=== PATIENT | female | born 1965 | race African-American/Black ===

== ENCOUNTER 2016-06-19 17:17 | Emergency (ER) | payer OTHER ==
[~2016-06-19] VITALS: Ht 170.2 cm; Wt 75.9 kg
[2016-06-19 17:20] VITALS: BP 146/91; PULSE 76; RESP 14; TEMP 98.4; O2SAT 100
[2016-06-19 20:13] VITALS: BP 152/85; PULSE 78; RESP 18; O2SAT 100
[2016-06-19] MEDS ORDERED: SODIUM CHLORIDE 0.9% FLUSH 5 ML FLUSH IVF PRN (20:15)
[2016-06-19 20:18] VITALS: RESP 18; O2SAT 99
--- NOTE | 2016-06-19 20:25 | PD ---
HPI Chief Complaint: Pain: Acute or Chronic Time Seen by Provider: 20:09 Travel History International Travel<30 days: No Contact w/Intl Traveler<30days: No Traveled to known affect area: No History of Present Illness HPI 50-year-old female with history of uterine cancer in remission, right lower extremity DVT and PE in 2014, here for evaluation of right ankle/leg pain and swelling and concern for possible DVT. The patient reports that 2 days ago she drove down here from [place]. Symptoms started today with pain and swelling. She denies trauma. No fevers or chills. She had some chest tightness earlier today and while in triage, currently is chest pain-free. No known history of cardiac disease. When the patient was diagnosed with her PE/DVT in 2014 she was on Eliquis for 6 months. [facility] Past Medical History Diabetes: No Hypertension: Yes Tetanus Vaccination: > 5 Years Influenza Vaccination: No ?: Not Tubal Ligation: Yes Past Surgical History Abdominal Surgery: Yes (HERNIA REPAIR) Hysterectomy: Yes Tonsillectomy: Yes Social History Alcohol Use: No Tobacco Use: No Substance Use: No Allergies-Medications (Allergen,Severity, Reaction): Coded Allergies: Flagyl (Verified Allergy, Unknown, 06/19/16) Levaquin (Verified Allergy, Unknown, 06/19/16) Penicillin (Verified Allergy, Unknown, 06/19/16) Review of Systems Except as stated in HPI: all other systems reviewed are Neg Physical Exam Narrative GENERAL: Pleasant, well-developed, well-nourished, comfortable, no acute distress. SKIN: Warm and dry. No rash. No erythema or signs of cellulitis. HEAD: Atraumatic. Normocephalic. EYES: Pupils equal and round. No scleral icterus. No injection or drainage. ENT: Mucous membranes pink and moist. NECK: Trachea midline. No JVD. CARDIOVASCULAR: Regular rate and rhythm. Bilateral dorsalis pedis pulses are brisk and equal. RESPIRATORY: No accessory muscle use. Clear to auscultation. Breath sounds equal bilaterally. MUSCULOSKELETAL: Moderate right ankle swelling with mild diffuse tenderness without obvious bony deformity, with normal range of motion. There is also some tenderness over the proximal/posterior right calf/posterior right knee. All compartments in the right lower extremity are supple. No signs of cellulitis. No crepitus. NEUROLOGICAL: Awake and alert. No obvious cranial nerve deficits. Motor grossly within normal limits. Normal speech. PSYCHIATRIC: Appropriate mood and affect; insight and judgment normal. Data Data Last Documented VS Vital Signs Date Time Temp Pulse Resp B/P Pulse Ox O2 Delivery O2 Flow Rate FiO2 06/19/16 21:31 65 20 143/86 100 Room Air 06/19/16 17:20 98.4 Orders Electrocardiogram (06/19/16 20:13) Basic Metabolic Panel (Bmp) (06/19/16 20:13) Ckmb (Isoenzyme) Profile (06/19/16 20:13) Complete Blood Count With Diff (06/19/16 20:13) Prothrombin Time / Inr (Pt) (06/19/16 20:13) Act Partial Throm Time (Ptt) (06/19/16 20:13) Troponin I (06/19/16 20:13) Chest, Single Ap (06/19/16 20:13) Ecg Monitoring (06/19/16 20:13) Iv Access Insert/Monitor (06/19/16 20:13) Oximetry (06/19/16 20:13) Sodium Chloride 0.9% Flush (Ns Flush) (06/19/16 20:15) Us Leg Venous Doppler (06/19/16 ) Ankle, Complete ([id number]) (06/19/16 ) CKMB (06/19/16 20:20) CKMB% (06/19/16 20:20) Labs Laboratory Tests Test 06/19/16 20:20 White Blood Count 4.8 TH/MM3 Red Blood Count 2.99 MIL/MM3 Hemoglobin 9.6 GM/DL Hematocrit 28.3 % Mean Corpuscular Volume 94.7 FL Mean Corpuscular Hemoglobin 32.0 PG Mean Corpuscular Hemoglobin 33.8 % Concent Red Cell Distribution Width 13.9 % Platelet Count 178 TH/MM3 Mean Platelet Volume 8.8 FL Neutrophils (%) (Auto) 38.7 % Lymphocytes (%) (Auto) 51.0 % Monocytes (%) (Auto) 7.7 % Eosinophils (%) (Auto) 1.3 % Basophils (%) (Auto) 1.3 % Neutrophils # (Auto) 1.9 TH/MM3 Lymphocytes # (Auto) 2.4 TH/MM3 Monocytes # (Auto) 0.4 TH/MM3 Eosinophils # (Auto) 0.1 TH/MM3 Basophils # (Auto) 0.1 TH/MM3 CBC Comment DIFF FINAL Differential Comment Prothrombin Time 10.5 SEC Prothromb Time International 1.0 RATIO Ratio Activated Partial 24.2 SEC Thromboplast Time Sodium Level 142 MEQ/L Potassium Level 4.6 MEQ/L Chloride Level 109 MEQ/L Carbon Dioxide Level 26.9 MEQ/L Anion Gap 6 MEQ/L Blood Urea Nitrogen 43 MG/DL Creatinine 2.28 MG/DL Estimat Glomerular Filtration 27 ML/MIN Rate Random Glucose 97 MG/DL Calcium Level 8.7 MG/DL Total Creatine Kinase 181 U/L Creatine Kinase MB 1.7 NG/ML Troponin I LESS THAN 0.02 NG/ML MDM Medical Decision Making Medical Screen Exam Complete: Yes Emergency Medical Condition: Yes Interpretation(s) EKG: Sinus, rate 60, normal axis, normal intervals, no acute ischemic abnormality. Differential Diagnosis DVT, venous insufficiency, Bacon cyst, musculoskeletal strain Narrative Course Vital signs show heart rate 76, blood pressure 146/91, pulse ox 100% on room air , oral temp of 98.4F. CBC shows WBC 4.8, hemoglobin 9.6, hematocrit 28.3, platelets 178. BMP is remarkable for BUN 43, creatinine 2.28, GFR 27 Cardiac enzymes Chest x-ray shows no acute disease. Right ankle x-ray shows no acute abnormality. Right lower extremity duplex is negative for DVT. There are no baseline labs in our system as the patient has never been here before. She tells me that she knows about her renal insufficiency and that her baseline creatinine is around 2. Patient and the patient's significant other were made aware of all findings. She tells me that she started taking amlodipine about 2 weeks ago. This could possibly be causing her peripheral edema in her right leg. There are no signs of cellulitis or infection. At this point she is stable for discharge home with outpatient follow-up with her primary care physician when she returns to [place]. I told her that if her symptoms are persistent for the next week, that she should have a repeat ultrasound in 1 week. She was informed on when to return to the emergency Department sooner. She verbalizes understanding and agreement with plan. Diagnosis Primary Impression: Right leg swelling Referrals: Primary Care Physician 3 days Additional Instructions: Follow-up with a primary care physician this week. Return to the emergency department for worsening symptoms or any other concerns. Scripts Hydrocodone-Acetaminophen (Lortab)5-325 Mg Tab1 Tab PO Q6H PRN (PAIN) #10 TAB Ref 0 Prov:Javed Chowdary MD 06/19/16 Disposition: 01 DISCHARGE HOME Condition: Stable Javed Chowdary MD Jun 19, 2016 20:25
--- NOTE | 2016-06-19 20:56 | RADRPT ---
EXAM DATE/TIME: 06/19/2016 20:24 [facility] COMPARISON: No previous studies available for comparison. INDICATIONS : Swelling. MEDICAL HISTORY : History of DVT in right leg 2015. Hypertension. SURGICAL HISTORY : Tonsillectomy. hernia repair. Left rotator cuff repair. ENCOUNTER: Initial ACUITY: 1 day PAIN SCORE: 0/10 LOCATION: Right leg. TECHNIQUE: Venous ultrasound of the leg was performed from the inguinal ligament to the proximal calf. Real-lars e, color Doppler and spectral tracing, compression and augmentation techniques were used. FINDINGS: There is normal compressibility of the deep venous system from the inguinal region to the proximal ca lf. No echogenic clot is seen in the lumen of the common femoral, femoral, popliteal, and posterior tibial veins. There is a normal response of the venous system to proximal and distal augmentation an d respiration. CONCLUSION: No DVT. David Chin MD on June 19, 2016 at 20:54 Board Certified Radiologist. This report was verified electronically.
[2016-06-19 21:13] LABS: AUTOMATED NEUTROPHIL # 1.9 TH/MM3 (1.8-7.7); BASOPHIL # 0.1 TH/MM3 (0-0.2); BASOPHIL % 1.3 % (0.0-2.0); EOSINOPHIL # 0.1 TH/MM3 (0-0.4); EOSINOPHIL % 1.3 % (0.0-4.0); HEMATOCRIT 28.3 % (35.0-46.0); HEMO FLAGS DIFF FINAL; LYMPHOCYTE # 2.4 TH/MM3 (1.0-4.8); MEAN CELL VOLUME 94.7 FL (80.0-100.0); MEAN CORPUSCULAR HGB CONC 33.8 % (32.0-36.0); MONO % 7.7 % (0.0-8.0); NEUT % 38.7 % (16.0-70.0); PLATELET COUNT 178 TH/MM3 (150-450); RED BLOOD COUNT 2.99 MIL/MM3 (4.00-5.30); RED CELL DISTRIBUTION WIDTH 13.9 % (11.6-17.2); WHITE BLOOD COUNT 4.8 TH/MM3 (4.0-11.0)
[2016-06-19 21:24] LABS: APTT (PATIENT) 24.2 SEC (24.3-30.1); PROTHROMBIN TIME - PATIENT 10.5 SEC (9.8-11.6)
[2016-06-19 21:31] VITALS: BP 143/86; PULSE 65; RESP 20; O2SAT 100
--- NOTE | 2016-06-19 21:38 | RADRPT ---
EXAM DATE/TIME: 06/19/2016 21:15 [facility] COMPARISON: No previous studies available for comparison. INDICATIONS : Chest pain MEDICAL HISTORY : History of DVT in right leg 2015. Hypertension. SURGICAL HISTORY : Tonsillectomy. hernia repair. Left rotator cuff repair. Infusaport ENCOUNTER: Initial ACUITY: 1 day PAIN SCORE: 0/10 LOCATION: Bilateral chest FINDINGS: A single view of the chest demonstrates the lungs to be symmetrically aerated without evidence of mas s, infiltrate or effusion. There is a CT compatible [id number] in place from the left subclavian approach with the tip overlying the SVC. The cardiomediastinal contours are unremarkable. Osseous st ructures are intact. CONCLUSION: No acute disease. David Chin MD on June 19, 2016 at 21:36 Board Certified Radiologist. This report was verified electronically.
--- NOTE | 2016-06-19 21:43 | RADRPT ---
EXAM DATE/TIME: 06/19/2016 21:17 [facility] COMPARISON: No previous studies available for comparison. INDICATIONS : Right ankle swelling MEDICAL HISTORY : History of DVT in right leg 2015. Hypertension. SURGICAL HISTORY : Tonsillectomy. ENCOUNTER: Initial ACUITY: 1 day PAIN SCORE: 0/10 LOCATION: Right Ankle FINDINGS: Three view exam was performed of the right ankle. The bony structures are in normal alignment. No e vidence of fracture, dislocation, or soft tissue swelling. The ankle mortise is intact. No radiopaq ue foreign bodies are seen. The bones appear osteopenic. CONCLUSION: No acute disease. David Chin MD on June 19, 2016 at 21:41 Board Certified Radiologist. This report was verified electronically.
[2016-06-19 21:53] LABS: ANION GAP 6 MEQ/L (5-15); BICARBONATE 26.9 MEQ/L (21.0-32.0); BLOOD UREA NITROGEN 43 MG/DL (7-18); CHLORIDE 109 MEQ/L (98-107); CREATINE KINASE 181 U/L (26-192); GLOMERULAR FILTRATION RATE 27 ML/MIN (>89); POTASSIUM 4.6 MEQ/L (3.5-5.1); SODIUM (NA) 142 MEQ/L (136-145)
[2016-06-19 22:05] LABS: CKMB 1.7 NG/ML (0.5-3.6)
[2016-06-19] MEDS ORDERED: HYDR-3533 PO (22:19)
--- NOTE | 2016-06-20 09:16 | EKG ---
Date Performed: 06/19/2016 Time Performed: 20:25:26 PTAGE: 50 years EKG: Sinus rhythm NORMAL ECG NO PREVIOUS TRACING DOCTOR: Ozzie Borrego Interpretating Date/Time 06/20/2016 09:14:37
== END 2016-06-19 23:00 | disposition home or self-care (01) ==
LOC: NEPA 17:17
DX: M79.89 Other specified soft tissue disorders (principal); R07.9 Chest pain, unspecified; I10 Essential (primary) hypertension
CPT/HCPCS: 71010; 73610; 80048; 82550; 82552; 84484; 85025; 85610; 85730; 93005; 93971

== ENCOUNTER 2017-03-15 11:00 | Inpatient (IN) | payer OTHER ==
[2017-03-15] VITALS (10 sets, daily range): BP systolic 116–155; BP diastolic 69–91; PULSE 75–98; RESP 16–22; TEMP 97.4–98.5; O2SAT 97–100
[~2017-03-15] VITALS: Ht 170.2 cm; Wt 65.1 kg
[~2017-03-15 11:00] MED LIST: HYDR-3533 PO
[2017-03-15] MEDS ORDERED: COUM5TAB PO (11:23)
[2017-03-15] MEDS ORDERED: COUM7.5T PO (11:24)
--- NOTE | 2017-03-15 11:40 | PD ---
HPI Chief Complaint: Back/ Neck Pain or Injury Time Seen by Provider: 11:29 Travel History International Travel<30 days: No Contact w/Intl Traveler<30days: No Traveled to known affect area: No History of Present Illness HPI 51 YO F with PMH of HTN, DVT, neuropathy, left percutaneous nephrostomy tube, uterine cancer status post hysterectomy on Coumadin presents to the ED for evaluation of 3 week history of lower left back pain, worsening over the last few days. Patient endorses dysuria and urinary urgency 2 days. Endorses chills, has not measured a fever at home. She denies cough, shortness of breath , nausea, vomiting, abdominal pain, saddle anesthesia, weakness of the extremities. 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 She states that she recently moved from [place] and does not currently have a doctor. PFSH Past Medical History Diabetes: No Hypertension: Yes ?: Not Tubal Ligation: Yes Past Surgical History Abdominal Surgery: Yes (HERNIA REPAIR) Hysterectomy: Yes Tonsillectomy: Yes Social History Alcohol Use: No Tobacco Use: No Substance Use: No Allergies-Medications (Allergen,Severity, Reaction): Coded Allergies: levofloxacin (Unverified Allergy, Unknown, 03/15/17) metronidazole (Unverified Allergy, Unknown, 03/15/17) penicillin G (Unverified Allergy, Unknown, 03/15/17) Reported Meds & Prescriptions Reported Meds & Active Scripts Active Reported Coumadin (Warfarin) 7.5 Mg Tab 7.5 Mg PO EVERY OTHER DAY Coumadin (Warfarin) 5 Mg Tab 5 Mg PO EVERY OTHER DAY Review of Systems Except as stated in HPI: all other systems reviewed are Neg Physical Exam Narrative GENERAL: Well-nourished, well-developed nontoxic-appearing black female in no acute distress. SKIN: Focused skin assessment warm/dry. HEAD: Normocephalic. EYES: No scleral icterus. No injection or drainage. NECK: Supple, trachea midline. No JVD or lymphadenopathy. CARDIOVASCULAR: Regular rate and rhythm without murmurs, gallops, or rubs. RESPIRATORY: Breath sounds clear and equal bilaterally. No accessory muscle use. GASTROINTESTINAL: Abdomen soft, non-tender, nondistended. Active bowel sounds. MUSCULOSKELETAL: No cyanosis, or edema. BACK: Nontender without obvious deformity. No CVA tenderness. Point tenderness at the left-sided sciatic notch. There is a nephrostomy tube in place, entrance wound is well-healed and without signs of infection. Data Data Last Documented VS Vital Signs Date Time Temp Pulse Resp B/P (MAP) Pulse Ox O2 Delivery O2 Flow Rate FiO2 03/15/17 13:20 20 03/15/17 13:00 96 137/83 (101) 100 Room Air 03/15/17 11:03 98.5 Orders Orders Urinalysis - C+S If Indicated (03/15/17 11:29) Complete Blood Count With Diff (03/15/17 11:48) Comprehensive Metabolic Panel (03/15/17 11:48) Iv Access Insert/Monitor (03/15/17 11:48) Ecg Monitoring (03/15/17 11:48) Oximetry (03/15/17 11:48) Morphine Inj (Morphine Inj) (03/15/17 12:00) Ondansetron Inj (Zofran Inj) (03/15/17 12:00) Sodium Chlor 0.9% 1000 Ml Inj (Ns 1000 M (03/15/17 11:48) Sodium Chloride 0.9% Flush (Ns Flush) (03/15/17 12:00) Prothrombin Time / Inr (Pt) (03/15/17 11:53) Act Partial Throm Time (Ptt) (03/15/17 11:53) Urine Culture (03/15/17 11:45) Aztreonam Inj (Azactam Inj) (03/15/17 13:00) Admit Order (Ed Use Only) (03/15/17 13:52) Labs Laboratory Tests Test 03/15/17 11:45 03/15/17 11:58 Urine Color YELLOW Urine Turbidity CLOUDY Urine pH 5.0 Urine Specific [place] 1.012 Urine Protein TRACE mg/dL Urine Glucose (UA) NEG mg/dL Urine Ketones NEG mg/dL Urine Occult Blood NEG Urine Nitrite NEG Urine Bilirubin NEG Urine Urobilinogen LESS THAN 2.0 MG/DL Urine Leukocyte Esterase LARGE Urine WBC 16 /hpf Urine Bacteria RARE /hpf Microscopic Urinalysis Comment CULTURE INDICATED White Blood Count 7.5 TH/MM3 Red Blood Count 3.26 MIL/MM3 Hemoglobin 9.5 GM/DL Hematocrit 29.1 % Mean Corpuscular Volume 89.2 FL Mean Corpuscular Hemoglobin 29.2 PG Mean Corpuscular Hemoglobin Concent 32.7 % Red Cell Distribution Width 16.4 % Platelet Count 412 TH/MM3 Mean Platelet Volume 7.9 FL Neutrophils (%) (Auto) 72.8 % Lymphocytes (%) (Auto) 17.8 % Monocytes (%) (Auto) 7.6 % Eosinophils (%) (Auto) 0.8 % Basophils (%) (Auto) 1.0 % Neutrophils # (Auto) 5.5 TH/MM3 Lymphocytes # (Auto) 1.3 TH/MM3 Monocytes # (Auto) 0.6 TH/MM3 Eosinophils # (Auto) 0.1 TH/MM3 Basophils # (Auto) 0.1 TH/MM3 CBC Comment DIFF FINAL Differential Comment Prothrombin Time 19.8 SEC Prothromb Time International Ratio 1.7 RATIO Activated Partial Thromboplast Time 31.3 SEC Blood Urea Nitrogen 18 MG/DL Creatinine 1.48 MG/DL Random Glucose 86 MG/DL Total Protein 9.3 GM/DL Albumin 3.1 GM/DL Calcium Level 9.7 MG/DL Alkaline Phosphatase 77 U/L Aspartate Amino Transf (AST/SGOT) 53 U/L Alanine Aminotransferase (ALT/SGPT) 17 U/L Total Bilirubin 0.6 MG/DL Sodium Level 135 MEQ/L Potassium Level 4.6 MEQ/L Chloride Level 103 MEQ/L Carbon Dioxide Level 23.0 MEQ/L Anion Gap 9 MEQ/L Estimat Glomerular Filtration Rate 45 ML/MIN MDM Medical Decision Making Medical Screen Exam Complete: Yes Emergency Medical Condition: Yes Differential Diagnosis musculoskeletal pain versus infected nephrostomy tube versus pyelonephritis versus other Narrative Course 51 YO F with PMH of HTN, DVT, neuropathy, left nephrostomy tube, uterine cancer s/p hysterectomy, on Coumadin presents to the ED for evaluation of 3 week history of lower left back pain, worsening over the last few days. Endorses chills, dysuria and urinary urgency 2 days. She denies cough, shortness of breath, nausea, vomiting, abdominal pain, saddle anesthesia, weakness of the extremities. 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 She recently moved from [place] and does not currently have a PCP. Vitals reviewed. On exam the patient has positive left-sided CVA tenderness. The nephrostomy tube site is well-healed without signs of infection. There is cloudy urine in the collection bag. IV was established. Patient was administered 4 mg morphine, 4 mg Zofran, 1 L normal saline. CBC: WBC 7.5. Hemoglobin 9.5. CMP: BUN 18, creatinine 1.48. GFR 45. Coags: INR 1.7. UA: Cloudy, large leukocyte esterase, 16 WBCs, rare bacteria. Patient states that her baseline creatinine runs 1.1-1.3. Was administered 1 g of aztreonam IV. I discussed the results of the workup with the patient who is agreeable to admission for complicated pyelonephritis, subtheraputic INR. I spoke with who agrees to accept the patient to the medicine service. Please see medicine notes for disposition. Ladonna Mendoza Mar 15, 2017 11:40
[2017-03-15] MEDS ORDERED: SODIUM CHLOR 0.9% 1000 ML INJ 1,000 ML IV SCH (11:48)
[2017-03-15] MEDS ORDERED: SODIUM CHLORIDE 0.9% FLUSH 10 ML FLUSH IV FLUSH PRN ×2 (12:00→15:00)
[2017-03-15] MEDS ORDERED: ONDANSETRON HCL 4 MG/2 ML VIAL IVP ONE (12:00)
[2017-03-15] MEDS ORDERED: MORPHINE SULFATE 4 MG/ML INJ IV PUSH ONE (12:00)
[2017-03-15 12:22] LABS: AUTOMATED NEUTROPHIL # 5.5 TH/MM3 (1.8-7.7); BASOPHIL # 0.1 TH/MM3 (0-0.2); EOSINOPHIL # 0.1 TH/MM3 (0-0.4); EOSINOPHIL % 0.8 % (0.0-4.0); HEMATOCRIT 29.1 % (35.0-46.0); HEMO FLAGS DIFF FINAL; LYMPH % 17.8 % (9.0-44.0); LYMPHOCYTE # 1.3 TH/MM3 (1.0-4.8); MEAN CELL VOLUME 89.2 FL (80.0-100.0); MEAN CORPUSCULAR HEMOGLOBIN 29.2 PG (27.0-34.0); MEAN CORPUSCULAR HGB CONC 32.7 % (32.0-36.0); MONO % 7.6 % (0.0-8.0); NEUT % 72.8 % (16.0-70.0); PLATELET COUNT 412 TH/MM3 (150-450); RED BLOOD COUNT 3.26 MIL/MM3 (4.00-5.30); RED CELL DISTRIBUTION WIDTH 16.4 % (11.6-17.2); WHITE BLOOD COUNT 7.5 TH/MM3 (4.0-11.0)
[2017-03-15 12:31] LABS: BACTERIA, URINE RARE /hpf; BLOOD, URINE NEG (NEG); GLUCOSE,URINE NEG (NEG); KETONE, URINE NEG (NEG); NITRITE,URINE NEG (NEG); URINE COLOR YELLOW (YELLW/STRAW)
[2017-03-15 12:34] LABS: APTT (PATIENT) 31.3 SEC (24.3-30.1); INTERNATIONAL NORMALIZED RATIO 1.7 RATIO; PROTHROMBIN TIME - PATIENT 19.8 SEC (9.8-11.6)
[2017-03-15 12:35] LABS: COMMENT (UR) CULTURE INDICATED; CULTURE IF INDICATED CULTURE INDICATED
[2017-03-15 12:39] LABS: ALKALINE PHOSPHATASE 77 U/L (45-117); TOTAL BILIRUBIN ADULT 0.6 MG/DL (0.2-1.0)
[2017-03-15 12:43] LABS: ALT (GPT) 17 U/L (10-53); ANION GAP 9 MEQ/L (5-15); AST (GOT) 53 U/L (15-37); BLOOD UREA NITROGEN 18 MG/DL (7-18); CHLORIDE 103 MEQ/L (98-107); GLOMERULAR FILTRATION RATE 45 ML/MIN (>89); SODIUM (NA) 135 MEQ/L (136-145)
[2017-03-15 12:44] LABS: POTASSIUM 4.6 MEQ/L (3.5-5.1)
[2017-03-15] MEDS ORDERED: AZTREONAM INJ 1,000 MG in SODIUM CHLORIDE 0.9% INJ 100 ML IV ONE (13:00)
[2017-03-15] MEDS ORDERED: oxyCODONE/ACETAMINOPHEN 7.5 MG/325 MG TAB PO ONE (14:45)
[2017-03-15] MEDS ORDERED: ACETAMINOPHEN 325 MG TAB PO PRN ×2 (15:00)
[2017-03-15] MEDS ORDERED: traMADol HCL 50 MG TAB PO PRN ×2 (15:00)
[2017-03-15] MEDS ORDERED: NALOXONE HCL 0.4 MG/ML AMP IV PUSH PRN (15:00)
[2017-03-15] MEDS ORDERED: ONDANSETRON HCL 4 MG/2 ML VIAL IVP PRN (15:00)
--- NOTE | 2017-03-15 15:12 | HHI.HP ---
[facility] Primary Care Physician No Primary Care Physician Admission Diagnosis complicated pyelonephritis, subtherapeutic INR Diagnoses: Chief Complaint: Back pain Travel History International Travel<30 Days: No Contact w/Intl Traveler <30 Da: No Traveled to Known Affected Are: No History of Present Illness The patient is a 51-year-old female with a past medical history of cervical cancer and left-sided nephrostomy tube placement was presenting to the hospital with ongoing subacute low back pain. The patient says that about 3 weeks ago she started to develop pain in a bandlike distribution above her buttocks. She said the pain didn't start off that severely but gradually got worse as time went by. She started by taking Tylenol to help with the pain and then eventually tried taking tramadol. She said the pain is worse when she is sitting or lying down. She says the pain generally gets better when she stands up. She has not noticed any fevers or night sweats. She has been eating well. She says that over the past couple of days she has noticed some discomfort when urinating. This morning she felt a tingling upon urination. She denied seeing any blood in her urine. She does endorse chronic constipation. She says she has nephrostomy tube has been in place since September and she gets it changed every 3 months. She said she is next due to get it changed in May. Review of Systems Except as stated in HPI: all other systems reviewed are Neg Past Family Social History Past Medical History Cervical cancer s/p hysterectomy, chemotherapy and radiation DVT CKD Left sided nephrostomy tube placement Tonsillectomy Allergies: Coded Allergies: levofloxacin (Unverified Allergy, Unknown, 03/15/17) metronidazole (Unverified Allergy, Unknown, 03/15/17) penicillin G (Unverified Allergy, Unknown, 03/15/17) Active Ordered Medications Current Medications Medications (Trade) Dose Ordered Sig/Erendira Route Start Time Stop Time Status Last Admin (NS Flush) 2 ml UNSCH PRN IV FLUSH 03/15/17 12:00 03/15/17 13:43 (Coumadin) 6 mg DAILY@16 PO 03/15/17 16:00 UNV Pharmacy Profile Note 0 ml @ 0 mls/hr UNSCH OTHER 03/15/17 15:00 UNV Sodium Chloride 1,000 ml @ 100 mls/hr Q10H IV 03/15/17 14:55 03/16/17 10:54 UNV (NS Flush) 2 ml UNSCH PRN IV FLUSH 03/15/17 15:00 UNV (NS Flush) 2 ml BID IV FLUSH 03/15/17 21:00 UNV (Tylenol) 650 mg Q4H PRN PO 03/15/17 15:00 UNV (Zofran Inj) 4 mg Q6H PRN IVP 03/15/17 15:00 UNV (Tylenol) 650 mg Q6H PRN PO 03/15/17 15:00 UNV (Ultram) 50 mg Q4H PRN PO 03/15/17 15:00 UNV (Ultram) 100 mg Q4H PRN PO 03/15/17 15:00 UNV (Narcan Inj) 0.4 mg UNSCH PRN IV PUSH 03/15/17 15:00 UNV (Julieta-Colace) 1 tab BID PO 03/15/17 21:00 UNV (Miralax) 17 gm DAILY PO 03/15/17 15:00 UNV Family History HTN Social History The pt does not smoke, drink or use illicit substances Physical Exam Vital Signs Vital Signs Date Time Temp Pulse Resp B/P (MAP) Pulse Ox O2 Delivery O2 Flow Rate FiO2 03/15/17 13:20 20 03/15/17 13:00 96 20 137/83 (101) 100 Room Air 03/15/17 11:56 99 Room Air 03/15/17 11:38 93 22 135/91 (106) 99 Room Air 03/15/17 11:03 98.5 98 16 142/77 (98) 98 Physical Exam GENERAL: This is a well-nourished, well-developed patient, in no apparent distress. SKIN: No rashes, ecchymoses or lesions. Cool and dry. HEAD: Atraumatic. Normocephalic. No temporal or scalp tenderness. EYES: Pupils equal round and reactive. Extraocular motions intact. No scleral icterus. No injection or drainage. ENT: Nose without bleeding, purulent drainage or septal hematoma. Throat without erythema, tonsillar hypertrophy or exudate. Uvula midline. Airway patent. NECK: Trachea midline. No JVD or lymphadenopathy. Supple, nontender, no meningeal signs. CARDIOVASCULAR: Tachycardic without murmurs, gallops, or rubs. RESPIRATORY: Clear to auscultation. Breath sounds equal bilaterally. No wheezes , rales, or rhonchi. GASTROINTESTINAL: Abdomen soft, non-tender, nondistended. No hepato-splenomegaly , or palpable masses. No guarding. BACK: Tender to palpation of lower lumbar spine. MUSCULOSKELETAL: Extremities without clubbing, cyanosis, or edema. No joint tenderness, effusion, or edema noted. NEUROLOGICAL: Awake and alert. Cranial nerves II through XII intact. Motor and sensory grossly within normal limits. Five out of 5 muscle strength in all muscle groups. Normal speech. PSYCH: Mood and affect appropriate. Laboratory Laboratory Tests Test 03/15/17 11:45 03/15/17 11:58 Urine Color YELLOW Urine Turbidity CLOUDY Urine pH 5.0 Urine Specific [place] 1.012 Urine Protein TRACE Urine Glucose (UA) NEG Urine Ketones NEG Urine Occult Blood NEG Urine Nitrite NEG Urine Bilirubin NEG Urine Urobilinogen LESS THAN 2.0 Urine Leukocyte Esterase LARGE Urine WBC 16 Urine Bacteria RARE Microscopic Urinalysis Comment CULTURE INDICATED White Blood Count 7.5 Red Blood Count 3.26 Hemoglobin 9.5 Hematocrit 29.1 Mean Corpuscular Volume 89.2 Mean Corpuscular Hemoglobin 29.2 Mean Corpuscular Hemoglobin Concent 32.7 Red Cell Distribution Width 16.4 Platelet Count 412 Mean Platelet Volume 7.9 Neutrophils (%) (Auto) 72.8 Lymphocytes (%) (Auto) 17.8 Monocytes (%) (Auto) 7.6 Eosinophils (%) (Auto) 0.8 Basophils (%) (Auto) 1.0 Neutrophils # (Auto) 5.5 Lymphocytes # (Auto) 1.3 Monocytes # (Auto) 0.6 Eosinophils # (Auto) 0.1 Basophils # (Auto) 0.1 CBC Comment DIFF FINAL Differential Comment Prothrombin Time 19.8 Prothromb Time International Ratio 1.7 Activated Partial Thromboplast Time 31.3 Blood Urea Nitrogen 18 Creatinine 1.48 Random Glucose 86 Total Protein 9.3 Albumin 3.1 Calcium Level 9.7 Alkaline Phosphatase 77 Aspartate Amino Transf (AST/SGOT) 53 Alanine Aminotransferase (ALT/SGPT) 17 Total Bilirubin 0.6 Sodium Level 135 Potassium Level 4.6 Chloride Level 103 Carbon Dioxide Level 23.0 Anion Gap 9 Estimat Glomerular Filtration Rate 45 Date/Time Source Procedure Growth Status 03/15/17 11:45 Urine Clean Catch Urine Culture Pending Received Result Diagram: 03/15/17 1158 03/15/17 1158 Caprini VTE Risk Assessment Caprini VTE Risk Assessment: Mod/High Risk (score >= 2) Caprini Risk Assessment Model Point Value = 1 Point Value = 2 Point Value = 3 Point Value = 5 Age 41-60 Minor surgery BMI > 25 kg/m2 Swollen legs Varicose veins or History of unexplained or recurrent spontaneous Oral contraceptives or hormone replacement Sepsis (< 1 month) Serious lung disease, including pneumonia (< 1 month) Abnormal pulmonary function Acute myocardial infarction Congestive heart failure (< 1 month) History of inflammatory bowel disease Medical patient at bed rest Age 61-74 Arthroscopic surgery Major open surgery (> 45 min) Laparoscopic surgery (> 45 min) Malignancy Confined to bed (> 72 hours) Immobilizing plaster cast Central venous access Age >= 75 History of VTE Family history of VTE Factor V Leiden Prothrombin [id number] Lupus anticoagulant Anticardiolipin antibodies Elevated serum homocysteine Heparin-induced thrombocytopenia Other congenital or acquired thrombophilia Stroke (< 1 month) Elective arthroplasty Hip, pelvis, or leg fracture Acute spinal cord injury (< 1 month) Prophylaxis Regimen Total Risk Factor Score Risk Level Prophylaxis Regimen 0-1 Low Early ambulation 2 Moderate Order ONE of the following: *Sequential Compression Device (SCD) *Heparin 5000 units SQ BID 3-4 Higher Order ONE of the following medications: *Heparin 5000 units SQ TID *Enoxaparin/Lovenox 40 mg SQ daily (WT < 150 kg, CrCl > 30 mL/min) *Enoxaparin/Lovenox 30 mg SQ daily (WT < 150 kg, CrCl > 10-29 mL/min) *Enoxaparin/Lovenox 30 mg SQ BID (WT < 150 kg, CrCl > 30 mL/min) AND/OR *Sequential Compression Device (SCD) 5 or more Highest Order ONE of the following medications: *Heparin 5000 units SQ TID (Preferred with Epidurals) *Enoxaparin/Lovenox 40 mg SQ daily (WT < 150 kg, CrCl > 30 mL/min) *Enoxaparin/Lovenox 30 mg SQ daily (WT < 150 kg, CrCl > 10-29 mL/min) *Enoxaparin/Lovenox 30 mg SQ BID (WT < 150 kg, CrCl > 30 mL/min) AND *Sequential Compression Device (SCD) Assessment and Plan Assessment and Plan Low back pain Ongoing for the past 3 weeks. Exam is positive for mild tenderness to palpation. - Pain control. - Check a lumbar x-ray. If unrevealing would pursue an MRI of the lumbar spine. - Check ESR and CRP levels. UTI/ Pyelonephritis The patient endorses dysuria. UA indicative of infection. She does have a left nephrostomy tube in place and was started on aztreonam in the emergency department for concern of pyelonephritis. - Continue IV aztreonam for now. - Follow urine culture. - IV fluids. CKD The patient says that her creatinine was much higher before they placed the nephrostomy tube. - Avoid nephrotoxic agents. - IV fluids. Anemia Appears chronic. May be secondary to history of cervical cancer or chronic kidney disease. - Follow CBC and transfuse as needed. DVT The patient is on Coumadin. Her INR was 1.7 on admission. - Continue Coumadin with pharmacy assisting with dosing. Constipation Chronic problem. - Continue Colace and MiraLAX. PPx: Coumadin Discussed Condition With Patient, nurse Physician Certification 2 Midnight Certification Type: Admission for Inpatient Services Order for Inpatient Services The services are ordered in accordance with Medicare regulations or non- Medicare payer requirements, as applicable. In the case of services not specified as inpatient-only, they are appropriately provided as inpatient services in accordance with the 2-midnight benchmark. Estimated LOS (days): 2 days is the estimated time the patient will need to remain in the hospital, assuming treatment plan goals are met and no additional complications. Post-Hospital Plan: Home Bladimir Braun DO Mar 15, 2017 15:12
[2017-03-15] MEDS: SODIUM CHLOR 0.9% 1000 ML INJ 1,000 ML IV SCH (15:35)
--- NOTE | 2017-03-15 16:11 | RADRPT ---
EXAM DATE/TIME: 03/15/2017 15:15 [facility] COMPARISON: No previous studies available for comparison. INDICATIONS : Lower back pain with no known injury. MEDICAL HISTORY : None. SURGICAL HISTORY : None. ENCOUNTER: Initial ACUITY: 3 weeks PAIN SCORE: 8/10 LOCATION: lower back. FINDINGS: The lumbar vertebral bodies are satisfactory aligned and appear intact. There are no significant dege nerative changes. A right sided internal ureteral stents a left-sided nephrostomy tube are noted in place. There are no discrete calcifications seen along the course of the right ureteral stent or overlying t he kidneys. Bilateral endovascular coils are identified within the pelvis. Intestinal gas pattern is normal. The CONCLUSION: 1. Intact lumbar spine without evidence of acute process. 2. Right-sided intraureteral stent and left-sided nephrostomy tube. 3. No evidence of nephrolithiasis. Scott Winter MD on March 15, 2017 at 16:05 Board Certified Radiologist. This report was verified electronically.
[2017-03-15] MEDS: WARFARIN SOD 6 MG TAB PO SCH (17:41)
[2017-03-15] MEDS: POLYETHYLENE GLYCOL 17 GM PKG PO SCH (17:56)
--- NOTE | 2017-03-15 20:14 | RADRPT ---
EXAM DATE/TIME: 03/15/2017 19:28 [facility] COMPARISON: SPINE LUMBAR COMPLETE W/OBLIQ, March 15, 2017, 15:15. INDICATIONS : Pain. MEDICAL HISTORY : Carcinoma, cervical. DVT. SURGICAL HISTORY : Hysterectomy. Nephrostomy tube, left. Port placement. Ureteral stent, right. ENCOUNTER: Subsequent ACUITY: 1 day PAIN SCORE: 8/10 LOCATION: Lower back. TECHNIQUE: Multiplanar multisequence MRI of the lumbar spine was performed without contrast. FINDINGS: The most caudal appearing lumbar vertebra is numbered as L5. VERTEBRAE: Homogeneous signal. Normal alignment. CONUS: Normal level and configuration. There is a double J stent involving the right renal collecting system. There is moderate hydronephros is observed. A left-sided nephrostomy tube is seen without hydronephrosis. T12-L1: The thecal sac has a normal diameter. No evidence of disc bulge or protrusion. The neural foramina are patent bilaterally. L1-L2: The thecal sac has a normal diameter. No evidence of disc bulge or protrusion. The neural foramina are patent bilaterally. L2-L3: The thecal sac has a normal diameter. No evidence of disc bulge or protrusion. The neural foramina are patent bilaterally. L3-L4: The thecal sac has a normal diameter. No evidence of disc bulge or protrusion. The neural foramina are patent bilaterally. L4-L5: There is disc space narrowing without loss of height. The thecal sac has a normal diameter. No evide nce of disc bulge or protrusion. The neural foramina are patent bilaterally. L5-S1: The thecal sac has a normal diameter. No evidence of disc bulge or protrusion. The neural foramina are patent bilaterally. CONCLUSION: 1. No acute abnormality. 2. Hydronephrosis involving the right kidney despite a double-J stent. 3. Left nephrostomy without hydronephrosis. Yifan De La Rosa Jr., MD on March 15, 2017 at 20:09 Board Certified Radiologist. This report was verified electronically.
[2017-03-15] MEDS: SODIUM CHLORIDE 0.9% FLUSH 10 ML FLUSH IV FLUSH SCH (21:00)
[2017-03-15] MEDS: DOCUSATE SODIUM 50 MG/SENNA 8.6 MG TAB PO SCH (21:00)
[2017-03-15] MEDS: AZTREONAM INJ 1,000 MG in SODIUM CHLORIDE 0.9% INJ 100 ML IV SCH (21:26)
[2017-03-16] VITALS (7 sets, daily range): BP systolic 99–127; BP diastolic 59–89; PULSE 85–106; RESP 18; TEMP 97.4–99.2; O2SAT 94–98
[2017-03-16] MEDS: SODIUM CHLOR 0.9% 1000 ML INJ 1,000 ML IV SCH (04:33)
[2017-03-16] MEDS: AZTREONAM INJ 1,000 MG in SODIUM CHLORIDE 0.9% INJ 100 ML IV SCH ×2 (04:33→13:18)
[2017-03-16] MEDS: DOCUSATE SODIUM 50 MG/SENNA 8.6 MG TAB PO SCH ×2 (08:36→21:00)
[2017-03-16] MEDS: POLYETHYLENE GLYCOL 17 GM PKG PO SCH (08:36)
[2017-03-16] MEDS: SODIUM CHLORIDE 0.9% FLUSH 10 ML FLUSH IV FLUSH SCH ×2 (08:36→21:40)
[2017-03-16 09:30] LABS: AUTOMATED NEUTROPHIL # 5.4 TH/MM3 (1.8-7.7); BASOPHIL % 0.4 % (0.0-2.0); EOSINOPHIL # 0.1 TH/MM3 (0-0.4); EOSINOPHIL % 1.1 % (0.0-4.0); HEMATOCRIT 26.5 % (35.0-46.0); HEMO FLAGS DIFF FINAL; LYMPH % 15.2 % (9.0-44.0); LYMPHOCYTE # 1.1 TH/MM3 (1.0-4.8); MEAN CELL VOLUME 90.2 FL (80.0-100.0); MEAN CORPUSCULAR HEMOGLOBIN 28.6 PG (27.0-34.0); MEAN CORPUSCULAR HGB CONC 31.7 % (32.0-36.0); MONO % 9.8 % (0.0-8.0); NEUT % 73.5 % (16.0-70.0); PLATELET COUNT 300 TH/MM3 (150-450); RED BLOOD COUNT 2.94 MIL/MM3 (4.00-5.30); RED CELL DISTRIBUTION WIDTH 16.6 % (11.6-17.2); WHITE BLOOD COUNT 7.4 TH/MM3 (4.0-11.0)
[2017-03-16 09:42] LABS: PROTHROMBIN TIME - PATIENT 22.2 SEC (9.8-11.6)
[2017-03-16 10:08] LABS: ALKALINE PHOSPHATASE 66 U/L (45-117); ALT (GPT) 13 U/L (10-53); ANION GAP 8 MEQ/L (5-15); AST (GOT) 23 U/L (15-37); BICARBONATE 22.6 MEQ/L (21.0-32.0); BLOOD UREA NITROGEN 18 MG/DL (7-18); CHLORIDE 106 MEQ/L (98-107); GLOMERULAR FILTRATION RATE 50 ML/MIN (>89); POTASSIUM 4.2 MEQ/L (3.5-5.1); SODIUM (NA) 137 MEQ/L (136-145); TOTAL BILIRUBIN ADULT 0.4 MG/DL (0.2-1.0)
[2017-03-16] MEDS ORDERED: NALOXONE HCL 0.4 MG/ML AMP IV PUSH PRN (11:45)
[2017-03-16] MEDS ORDERED: PROCHLORPERAZINE 25 MG SUPP RECTAL PRN (11:45)
[2017-03-16] MEDS ORDERED: LACTULOSE SYRUP 20 GM/30 ML CUP PO PRN (11:45)
[2017-03-16] MEDS ORDERED: MORPHINE SULFATE 4 MG/ML INJ IV PUSH PRN (11:45)
[2017-03-16] MEDS ORDERED: SODIUM CHLORIDE 0.9% FLUSH 10 ML FLUSH IV FLUSH PRN (11:45)
[2017-03-16] MEDS ORDERED: MAGNESIUM HYDROXIDE SUSP 30 ML CUP PO PRN (11:45)
[2017-03-16] MEDS ORDERED: BISACODYL 10 MG SUPP RECTAL PRN (11:45)
[2017-03-16] MEDS ORDERED: SENNOSIDES 8.6 MG TAB PO PRN (11:45)
[2017-03-16] MEDS ORDERED: ONDANSETRON HCL 4 MG/2 ML VIAL IVP PRN (11:45)
[2017-03-16] MEDS ORDERED: ACETAMINOPHEN 325 MG TAB PO PRN ×2 (11:45)
--- NOTE | 2017-03-16 11:50 | HHI.PR ---
Subjective Remarks The patient is a 51-year-old female with a past medical history of cervical cancer and left-sided nephrostomy tube placement was presenting to the hospital with ongoing subacute low back pain. The patient says that about 3 weeks ago she started to develop pain in a bandlike distribution above her buttocks. She said the pain didn't start off that severely but gradually got worse as time went by. She started by taking Tylenol to help with the pain and then eventually tried taking tramadol. She said the pain is worse when she is sitting or lying down. She says the pain generally gets better when she stands up. She has not noticed any fevers or night sweats. She has been eating well. She says that over the past couple of days she has noticed some discomfort when urinating. This morning she felt a tingling upon urination. She denied seeing any blood in her urine. She does endorse chronic constipation. She says she has nephrostomy tube has been in place since September and she gets it changed every 3 months. She said she is next due to get it changed in May. 11 she states she is having less back pain now. Has the nephrostomy tube on the left side Has had the MRI. Denies any nausea or vomiting Has had some issues with constipation we'll place on medications Have discussed with patient and RN We'll consult infectious disease Await urine cultures Objective Vitals Vital Signs Date Time Temp Pulse Resp B/P (MAP) Pulse Ox O2 Delivery O2 Flow Rate FiO2 03/16/17 09:30 98 21 03/16/17 08:00 97.4 92 18 109/70 (83) 97 03/16/17 03:26 21 03/16/17 00:39 99.2 106 18 121/89 (100) 96 03/15/17 20:00 98.1 86 18 155/80 (105) 98 03/15/17 18:16 97.4 75 16 129/76 (93) 99 03/15/17 17:45 03/15/17 17:44 20 03/15/17 17:30 82 16 116/69 (85) 98 Room Air 03/15/17 16:30 76 18 120/72 (88) 97 Room Air 03/15/17 15:00 88 18 139/85 (103) 99 Room Air 03/15/17 14:00 86 22 141/88 (105) 100 Room Air 03/15/17 13:20 20 03/15/17 13:00 96 20 137/83 (101) 100 Room Air 03/15/17 11:56 99 Room Air 03/15/17 11:38 93 22 135/91 (106) 99 Room Air I/O 03/15/17 03/15/17 03/15/17 03/16/17 03/16/17 03/16/17 07:00 15:00 23:00 07:00 15:00 23:00 Intake Total 1100 ml 100 ml 1100 ml Output Total 100 ml Balance 1100 ml 100 ml 1000 ml Intake IV Total 1100 ml 100 ml 1100 ml Output Urine Total 100 ml Result Diagram: 03/16/17 0809 03/16/17 0809 Other Results Laboratory Tests Test 03/15/17 11:45 03/15/17 11:58 03/16/17 08:09 Urine Color YELLOW Urine Turbidity CLOUDY Urine pH 5.0 Urine Specific [place] 1.012 Urine Protein TRACE mg/dL Urine Glucose (UA) NEG mg/dL Urine Ketones NEG mg/dL Urine Occult Blood NEG Urine Nitrite NEG Urine Bilirubin NEG Urine Urobilinogen LESS THAN 2.0 MG/DL Urine Leukocyte Esterase LARGE Urine WBC 16 /hpf Urine Bacteria RARE /hpf Microscopic Urinalysis Comment CULTURE INDICATED White Blood Count 7.5 TH/MM3 7.4 TH/MM3 Red Blood Count 3.26 MIL/MM3 2.94 MIL/MM3 Hemoglobin 9.5 GM/DL 8.4 GM/DL Hematocrit 29.1 % 26.5 % Mean Corpuscular Volume 89.2 FL 90.2 FL Mean Corpuscular Hemoglobin 29.2 PG 28.6 PG Mean Corpuscular Hemoglobin Concent 32.7 % 31.7 % Red Cell Distribution Width 16.4 % 16.6 % Platelet Count 412 TH/MM3 300 TH/MM3 Mean Platelet Volume 7.9 FL 7.6 FL Neutrophils (%) (Auto) 72.8 % 73.5 % Lymphocytes (%) (Auto) 17.8 % 15.2 % Monocytes (%) (Auto) 7.6 % 9.8 % Eosinophils (%) (Auto) 0.8 % 1.1 % Basophils (%) (Auto) 1.0 % 0.4 % Neutrophils # (Auto) 5.5 TH/MM3 5.4 TH/MM3 Lymphocytes # (Auto) 1.3 TH/MM3 1.1 TH/MM3 Monocytes # (Auto) 0.6 TH/MM3 0.7 TH/MM3 Eosinophils # (Auto) 0.1 TH/MM3 0.1 TH/MM3 Basophils # (Auto) 0.1 TH/MM3 0.0 TH/MM3 CBC Comment DIFF FINAL DIFF FINAL Differential Comment Erythrocyte Sedimentation Rate GREATER THAN 140 mm/hr Prothrombin Time 19.8 SEC 22.2 SEC Prothromb Time International Ratio 1.7 RATIO 2.0 RATIO Activated Partial Thromboplast Time 31.3 SEC Blood Urea Nitrogen 18 MG/DL 18 MG/DL Creatinine 1.48 MG/DL 1.35 MG/DL Random Glucose 86 MG/DL 83 MG/DL Total Protein 9.3 GM/DL 7.2 GM/DL Albumin 3.1 GM/DL 2.4 GM/DL Calcium Level 9.7 MG/DL 8.8 MG/DL Alkaline Phosphatase 77 U/L 66 U/L Aspartate Amino Transf (AST/SGOT) 53 U/L 23 U/L Alanine Aminotransferase (ALT/SGPT) 17 U/L 13 U/L Total Bilirubin 0.6 MG/DL 0.4 MG/DL Sodium Level 135 MEQ/L 137 MEQ/L Potassium Level 4.6 MEQ/L 4.2 MEQ/L Chloride Level 103 MEQ/L 106 MEQ/L Carbon Dioxide Level 23.0 MEQ/L 22.6 MEQ/L Anion Gap 9 MEQ/L 8 MEQ/L Estimat Glomerular Filtration Rate 45 ML/MIN 50 ML/MIN C-Reactive Protein 7.40 MG/DL Imaging Last Impressions Lumbar Spine X-Ray 03/15/17 0000 Signed Impressions: Service Date/Time: March 15:15 - CONCLUSION: 1. Intact lumbar spine without evidence of acute process. 2. Right-sided intraureteral stent and left-sided nephrostomy tube. 3. No evidence of nephrolithiasis. Scott Winter MD Lumbar Spine MRI 03/15/17 0000 Signed Impressions: Service Date/Time: March 19:28 - CONCLUSION: 1. No acute abnormality. 2. Hydronephrosis involving the right kidney despite a double-J stent. 3. Left nephrostomy without hydronephrosis. Yifan De La Rosa Jr., MD Objective Remarks GENERAL: This is a well-nourished, well-developed patient, in no apparent distress. SKIN: No rashes, ecchymoses or lesions. Cool and dry. HEAD: Atraumatic. Normocephalic. No temporal or scalp tenderness. EYES: Pupils equal round and reactive. Extraocular motions intact. No scleral icterus. No injection or drainage. ENT: Nose without bleeding, purulent drainage or septal hematoma. Throat without erythema, tonsillar hypertrophy or exudate. Uvula midline. Airway patent. Tongue is midline NECK: Trachea midline. No JVD or lymphadenopathy. Supple, nontender, no meningeal signs. CARDIOVASCULAR: Tachycardic without murmurs, gallops, or rubs. S1 and S2 no S3 or S4 no heave or thrill RESPIRATORY: Clear to auscultation. Breath sounds equal bilaterally. No wheezes , rales, or rhonchi. GASTROINTESTINAL: Abdomen soft, non-tender, nondistended. No hepato-splenomegaly , or palpable masses. No guarding. BACK: Tender to palpation of lower lumbar spine. Nephrostomy tube on left back no CVA tenderness at this time MUSCULOSKELETAL: Extremities without clubbing, cyanosis, or edema. No joint tenderness, effusion, or edema noted. NEUROLOGICAL: Awake and alert. Cranial nerves II through XII intact. Motor and sensory grossly within normal limits. Five out of 5 muscle strength in all muscle groups. Normal speech. PSYCH: Mood and affect appropriate. Insight and judgment are good Medications and IVs Current Medications Morphine Sulfate (Morphine Inj) 4 mg ONCE ONCE IV PUSH Last administered on 12:35; Start 03/15/17 at 12:00; Stop 03/15/17 at 12:01; Status DC Ondansetron HCl (Zofran Inj) 4 mg ONCE ONCE IVP Last administered on 12:35; Start 03/15/17 at 12:00; Stop 03/15/17 at 12:01; Status DC Sodium Chloride 1,000 ml @ 1,000 mls/hr Q1H IV Last administered on 03/15/17 12:35; Start 03/15/17 at 11:48; Stop 03/15/17 at 12:47; Status DC Sodium Chloride (NS Flush) 2 ml UNSCH PRN IV FLUSH FLUSH AFTER USING IV ACCESS Last administered on 03/15/17 13:43; Start 03/15/17 at 12:00; Stop 03/15/17 at 15:24; Status DC Aztreonam 1000 mg/ Sodium Chloride 100 ml @ 200 mls/hr ONCE ONCE IV Last administered on 03/15/17 13:43; Start 03/15/17 at 13:00; Stop 03/15/17 at 13:29 ; Status DC Oxycodone/ Acetaminophen (Percocet 7.5-325 Mg) 1 tab ONCE ONCE PO Last administered on 03/15/17 14:42; Start 03/15/17 at 14:45; Stop 03/15/17 at 14:46 ; Status DC Warfarin Sodium (Coumadin) 6 mg DAILY@16 PO Last administered on 03/15/17 17: 41; Start 03/15/17 at 16:00 Pharmacy Profile Note 0 ml @ 0 mls/hr UNSCH OTHER ; Start 03/15/17 at 15:00 Sodium Chloride 1,000 ml @ 100 mls/hr Q10H IV Last administered on 03/16/17 04:33; Start 03/15/17 at 15:30; Stop 03/16/17 at 11:29 Sodium Chloride (NS Flush) 2 ml UNSCH PRN IV FLUSH FLUSH AFTER USING IV ACCESS ; Start 03/15/17 at 15:00 Sodium Chloride (NS Flush) 2 ml BID IV FLUSH ; Start 03/15/17 at 21:00 Acetaminophen (Tylenol) 650 mg Q4H PRN PO TEMP > 100.4; Start 03/15/17 at 15:00 Ondansetron HCl (Zofran Inj) 4 mg Q6H PRN IVP NAUSEA OR VOMITING; Start at 15:00 Acetaminophen (Tylenol) 650 mg Q6H PRN PO PAIN SCALE 1 TO 2; Start 03/15/17 at 15:00 Tramadol HCl (Ultram) 50 mg Q4H PRN PO PAIN SCALE 3 TO 5 Last administered on 03/15/17 21:26; Start 03/15/17 at 15:00 Tramadol HCl (Ultram) 100 mg Q4H PRN PO PAIN SCALE 6 TO 10 Last administered on 03/16/17 04:32; Start 03/15/17 at 15:00 Naloxone HCl (Narcan Inj) 0.4 mg UNSCH PRN IV PUSH SEE LABEL COMMENTS; Start 03/15/17 at 15:00 Senna/Docusate Sodium (Julieta-Colace) 1 tab BID PO Last administered on 08:36; Start 03/15/17 at 21:00 Polyethylene Glycol (Miralax) 17 gm DAILY PO Last administered on 03/16/17 08 :36; Start 03/15/17 at 16:00 Aztreonam 1000 mg/ Sodium Chloride 100 ml @ 200 mls/hr Q8H IV Last administered on 03/16/17 04:33; Start 03/15/17 at 22:00 Patient Medication Teaching (Coumadin Booklet) 1 ONCE ONCE OTHER Last administered on 03/15/17 16:06; Start 03/15/17 at 15:30; Stop 03/15/17 at 15:37 ; Status DC A/P Assessment and Plan Low back pain Ongoing for the past 3 weeks. Exam is positive for mild tenderness to palpation. - Pain control. - Check a lumbar x-ray. If unrevealing would pursue an MRI of the lumbar spine. MRI DONE - Check ESR and CRP levels. UTI/ Pyelonephritis The patient endorses dysuria. UA indicative of infection. She does have a left nephrostomy tube in place and was started on aztreonam in the emergency department for concern of pyelonephritis. - Continue IV aztreonam for now. - Follow urine culture. - IV fluids. Consult infectious disease CKD The patient says that her creatinine was much higher before they placed the nephrostomy tube. - Avoid nephrotoxic agents. - IV fluids. Anemia Appears chronic. May be secondary to history of cervical cancer or chronic kidney disease. - Follow CBC and transfuse as needed. DVT The patient is on Coumadin. Her INR was 1.7 on admission. Is now 2.0 today March 16 - Continue Coumadin with pharmacy assisting with dosing. Constipation Chronic problem. - Continue Colace and MiraLAX. PPx: Coumadin Discharge Planning Pending infectious disease clearance and pain control Blanco Barclay DO Mar 16, 2017 11:50
[2017-03-16] MEDS: oxyCODONE/ACETAMINOPHEN 5 MG/325 MG TAB PO PRN (13:24)
--- NOTE | 2017-03-16 15:49 | PD.CONS ---
History of Present Illness Service Infectious disease Consult Requested By Dr Barclay Reason for Consult Evaluate patient with complicated UTI Primary Care Physician No Primary Care Physician Diagnoses: History of Present Illness patient seen and examined. Records reviewed. Patient is a 51-year-old female, with history of cervical cancer, had undergone surgical treatment, as well as radiation, and recently completed chemotherapy last month. This was all done in [place], and she recently moved down here in [place] to stay with her daughter. She apparently started having problem with pain in her low back while she was up in [place]. She thought it was related to a previous accident, and the pain started getting worse. She denies any urinary complaints. She has not had any problem with her left nephrostomy. No nausea or vomiting. No dysuria. She has been constipated. No fever or chills. Patient apparently when she had recurrent cervical cancer last year, was found to have significant adhesions causing bilateral hydronephrosis. She had placement of a left nephrostomy, and it has been scheduled to get changed every 3 months. The last time it was change was about a month ago. She also has a stent in her right ureter. When she presented here, she is afebrile. Her WBC is normal. Her creatinine is slightly elevated, and according to the patient she has chronic renal insufficiency. Her urinalysis showed mild pyuria with 16 WBC. Looks like it was a clean catch urine. Patient had an MRI of her lumbar spine and it did not show any lumbar spine abnormality. It did show the presence of the nephrostomy tube on the left kidney, but no hydronephrosis. There is right hydronephrosis despite the presence of a stent. Infectious disease consultation has been requested to evaluate the patient with UTI and has complicated urologic problem Review of Systems Constitutional: COMPLAINS OF: Fatigue, DENIES: Fever, Chills Eyes: DENIES: Eye pain Ears, nose, mouth, throat: DENIES: Nasal discharge, Oral lesions, Throat pain, Ear Pain Respiratory: DENIES: Cough, Shortness of breath Cardiovascular: DENIES: Chest pain, Syncope Gastrointestinal: COMPLAINS OF: Constipation, DENIES: Abdominal pain, Diarrhea , Nausea, Vomiting, Difficulty Swallowing Genitourinary: DENIES: Dysuria Musculoskeletal: COMPLAINS OF: Back pain, DENIES: Joint pain, Joint Swelling Integumentary: DENIES: Rash Neurologic: DENIES: Headache, Localized weakness Psychiatric: DENIES: Hallucinations Past Family Social History Allergies: Coded Allergies: levofloxacin (Unverified Allergy, Unknown, 03/15/17) metronidazole (Unverified Allergy, Unknown, 03/15/17) penicillin G (Unverified Allergy, Unknown, 03/15/17) Past Medical History Cervical cancer s/p hysterectomy, chemotherapy and radiation DVT CKD Past Surgical History Tonsillectomy Hysterectomy Left nephrostomy Ureteral stent on the right Hernia repair Left rotator cuff repair Reported Medications I attest that I obtained, updated or reviewed the home and current medications. Reported Meds & Active Scripts Active Reported Coumadin (Warfarin) 7.5 Mg Tab 7.5 Mg PO EVERY OTHER DAY Coumadin (Warfarin) 5 Mg Tab 5 Mg PO EVERY OTHER DAY Active Ordered Medications Current Medications Medications (Trade) Dose Ordered Sig/Erendira Route Start Time Stop Time Status Last Admin (Coumadin) 6 mg DAILY@16 PO 03/15/17 16:00 03/15/17 17:41 Pharmacy Profile Note 0 ml @ 0 mls/hr UNSCH OTHER 03/15/17 15:00 (NS Flush) 2 ml UNSCH PRN IV FLUSH 03/15/17 15:00 (NS Flush) 2 ml BID IV FLUSH 03/15/17 21:00 (Tylenol) 650 mg Q4H PRN PO 03/15/17 15:00 (Zofran Inj) 4 mg Q6H PRN IVP 03/15/17 15:00 (Tylenol) 650 mg Q6H PRN PO 03/15/17 15:00 (Narcan Inj) 0.4 mg UNSCH PRN IV PUSH 03/15/17 15:00 (Julieta-Colace) 1 tab BID PO 03/15/17 21:00 03/16/17 08:36 (Miralax) 17 gm DAILY PO 03/15/17 16:00 03/16/17 08:36 Aztreonam 1000 mg/ Sodium Chloride 100 ml @ 200 mls/hr Q8H IV 03/15/17 22:00 03/16/17 13:18 (Compazine Supp) 25 mg Q12H PRN RECTAL 03/16/17 11:45 (Percocet 5-325 Mg) 1 tab Q6H PRN PO 03/16/17 11:45 03/16/17 13:24 (Percocet 10-325 Mg) 1 tab Q6H PRN PO 03/16/17 11:45 (Morphine Inj) 2 mg Q3H PRN IV PUSH 03/16/17 11:45 (Morphine Inj) 4 mg Q3H PRN IV PUSH 03/16/17 11:45 (Milk Of Magnesia Liq) 30 ml Q12H PRN PO 03/16/17 11:45 (Senokot) 17.2 mg Q12H PRN PO 03/16/17 11:45 (Dulcolax Supp) 10 mg DAILY PRN RECTAL 03/16/17 11:45 (Lactulose Liq) 30 ml DAILY PRN PO 03/16/17 11:45 Family History noncontributory Social History From [place], recently moved down here in [place] last week, has a daughter here No smoking No alcohol abuse No illicit drugs Physical Exam Vital Signs Vital Signs Date Time Temp Pulse Resp B/P (MAP) Pulse Ox O2 Delivery O2 Flow Rate FiO2 03/16/17 11:54 97.4 96 18 110/65 (80) 96 03/16/17 09:30 98 21 03/16/17 08:00 97.4 92 18 109/70 (83) 97 03/16/17 03:26 21 03/16/17 00:39 99.2 106 18 121/89 (100) 96 03/15/17 20:00 98.1 86 18 155/80 (105) 98 03/15/17 18:16 97.4 75 16 129/76 (93) 99 03/15/17 17:45 03/15/17 17:44 20 03/15/17 17:30 82 16 116/69 (85) 98 Room Air 03/15/17 16:30 76 18 120/72 (88) 97 Room Air Physical Exam GENERAL: Patient is a well-nourished, well-developed female, awake and alert , not in respiratory distress. SKIN: Warm and dry. No generalized rash, no ecchymoses and no evidence of embolic lesions. HEAD: Atraumatic. Normocephalic. No temporal wasting, or tenderness. EYES: [place] conjunctiva. No petechia or hemorrhage. Pupils equal, round and reactive to light. Extraocular movements full and intact. No scleral icterus. No injection or drainage. EARS, NOSE AND THROAT: Nose without bleeding or purulent nasal discharge. No sinus tenderness. Mucous membranes pink and moist. No oral lesions noted. No exudate. No oral thrush. NECK: Trachea midline. Supple and not tender, no meningeal signs CARDIOVASCULAR: Regular rate and rhythm. No murmurs, rubs or gallops heard RESPIRATORY: Clear to auscultation. Breath sounds equal bilaterally. No rales , wheezing or rhonchi ABDOMEN: Soft, non-tender, nondistended. Bowel sounds present and normoactive. No guarding. No rebound. No organomegaly. : Has L PCN, urine looks clear EXTREMITIES: No clubbing, cyanosis, or edema.No joint effusion, has good ROM. No calf tenderness. Well perfused and warm. NEUROLOGICAL: Awake and alert. Cranial nerves grossly intact. Motor grossly within normal limits. PSYCHIATRIC: Normal affect, calm and cooperative. LINE: No evidence of infection Laboratory Laboratory Tests Test 03/16/17 08:09 White Blood Count 7.4 Red Blood Count 2.94 Hemoglobin 8.4 Hematocrit 26.5 Mean Corpuscular Volume 90.2 Mean Corpuscular Hemoglobin 28.6 Mean Corpuscular Hemoglobin Concent 31.7 Red Cell Distribution Width 16.6 Platelet Count 300 Mean Platelet Volume 7.6 Neutrophils (%) (Auto) 73.5 Lymphocytes (%) (Auto) 15.2 Monocytes (%) (Auto) 9.8 Eosinophils (%) (Auto) 1.1 Basophils (%) (Auto) 0.4 Neutrophils # (Auto) 5.4 Lymphocytes # (Auto) 1.1 Monocytes # (Auto) 0.7 Eosinophils # (Auto) 0.1 Basophils # (Auto) 0.0 CBC Comment DIFF FINAL Differential Comment Prothrombin Time 22.2 Prothromb Time International Ratio 2.0 Blood Urea Nitrogen 18 Creatinine 1.35 Random Glucose 83 Total Protein 7.2 Albumin 2.4 Calcium Level 8.8 Alkaline Phosphatase 66 Aspartate Amino Transf (AST/SGOT) 23 Alanine Aminotransferase (ALT/SGPT) 13 Total Bilirubin 0.4 Sodium Level 137 Potassium Level 4.2 Chloride Level 106 Carbon Dioxide Level 22.6 Anion Gap 8 Estimat Glomerular Filtration Rate 50 Date/Time Source Procedure Growth Status 03/15/17 11:45 Urine Clean Catch Urine Culture - Preliminary NO GROWTH IN 24 HOURS. Resulted Result Diagram: 03/16/17 0809 03/16/17 0809 Imaging RADIOLOGY STUDIES/FILMS REVIEWED Lumbar Spine X-Ray 03/15/17 0000 Signed Impressions: Service Date/Time: March 15:15 - CONCLUSION: 1. Intact lumbar spine without evidence of acute process. 2. Right-sided intraureteral stent and left-sided nephrostomy tube. 3. No evidence of nephrolithiasis. Scott Winter MD Lumbar Spine MRI 03/15/17 0000 Signed Impressions: Service Date/Time: March 19:28 - CONCLUSION: 1. No acute abnormality. 2. Hydronephrosis involving the right kidney despite a double-J stent. 3. Left nephrostomy without hydronephrosis. Yifan De La Rosa Jr., MD Assessment and Plan Assessment and Plan IMPRESSION UTI, has L nephrostomy, and has R hydronephrosis - ?pyonephrosis Hx cervical CA, S/P surgery, XRT and chemo Abdirashid hydronephrosis due to adhesions accdg to patien CKD Allergy to [facility], tolerates Keflex - face gets swollen Rash with Levaquion and Flagyl RECOMMENDATION CT A/P Urology consult IV Cefepime Follow C/S and adjust Abx Monitor progress I nevaeh follow along with you Thank you for this consultation Discussed Condition With Explained plan to the patient Jessy Jeong MD Mar 16, 2017 15:49
[2017-03-16] MEDS ORDERED: DIATRIZOATE MEGLUM/DIATRIZOATE SOD 9 ML CUP PO ONE (16:45)
[2017-03-16] MEDS: CEFEPIME INJ 1,000 MG in SODIUM CHLORIDE 0.9% INJ 100 ML IV SCH (17:55)
[2017-03-16] MEDS: WARFARIN SOD 6 MG TAB PO SCH (17:59)
[2017-03-16] MEDS ORDERED: DOCUSATE SODIUM 50 MG/SENNA 8.6 MG TAB PO SCH (21:00)
[2017-03-16] MEDS ORDERED: SODIUM CHLORIDE 0.9% FLUSH 10 ML FLUSH IV FLUSH SCH (21:00)
--- NOTE | 2017-03-16 22:27 | RADRPT ---
EXAM DATE/TIME: 03/16/2017 21:59 [facility] COMPARISON: No previous studies available for comparison. INDICATIONS : History of pylonephritis. ORAL CONTRAST: Prescribed oral contrast ingested. RADIATION DOSE: 6.64 CTDIvol (mGy) MEDICAL HISTORY : Hypertension. Deep venous thrombosis. cervical cancer, pylonephritis SURGICAL HISTORY : Hysterectomy. neph tube in place ENCOUNTER: Initial ACUITY: 3 weeks PAIN SCALE: 6/10 LOCATION: Left lower quadrant TECHNIQUE: Volumetric scanning of the abdomen and pelvis was performed. Using automated exposure control and ad justment of the mA and/or kV according to patient size, radiation dose was kept as low as reasonably achievable to obtain optimal diagnostic quality images. DICOM format image data is available electro nically for review and comparison. FINDINGS: LOWER LUNGS: 2 pulmonary masses are seen involving the visualized right lung base. Only one is fully seen measurin g 2.3 cm. LIVER: Numerous hepatic metastases are seen. These average approximately 2 cm in size. No ductal dilatation. The gallbladder is decompressed. SPLEEN: Normal size without lesion. PANCREAS: Within normal limits. KIDNEYS: There is a double J stent on the right which is in good position. Significant right sided hydronephro sis is seen despite the stent. There is a nephrostomy tube involving the left kidney. This is in good position. No hydronephrosis seen on the left. No stones observed. No significant perinephric strandi ng. ADRENAL GLANDS: Within normal limits. VASCULAR: There is no aortic aneurysm. BOWEL/MESENTERY: The stomach, small bowel, and colon demonstrate no acute abnormality. There is no free intraperitone al air or fluid. ABDOMINAL WALL: Within normal limits. RETROPERITONEUM: There is no lymphadenopathy. BLADDER: No wall thickening or mass. REPRODUCTIVE: Prior hysterectomy. INGUINAL: Enlarged lymph nodes in the groins and external iliac chains bilaterally. The largest lymph node is w ithin the right groin and measures 3.6 x 3.3 cm. MUSCULOSKELETAL: Within normal limits for patient age. CONCLUSION: 1. Metastatic disease involving the visualized lung bases, liver, and inguinal lymph nodes. 2. Double J stent on the right is in good position. Despite this there is significant hydronephrosis. 3. Left-sided nephrostomy tube in good position. No hydronephrosis on this side. Yifan De La Rosa Jr., MD on March 16, 2017 at 22:21 Board Certified Radiologist. This report was verified electronically.
[2017-03-16] MEDS: oxyCODONE/ACETAMINOPHEN 10 MG/325 MG TAB PO PRN (23:54)
[2017-03-17] VITALS: BP 110/64; PULSE 91; RESP 18; TEMP 97.8; O2SAT 97
[2017-03-17] MEDS: MORPHINE SULFATE 4 MG/ML INJ IV PUSH PRN (05:27)
[2017-03-17] MEDS: CEFEPIME INJ 1,000 MG in SODIUM CHLORIDE 0.9% INJ 100 ML IV SCH ×2 (05:30→18:17)
[2017-03-17 07:14] LABS: INTERNATIONAL NORMALIZED RATIO 2.1 RATIO; PROTHROMBIN TIME - PATIENT 24.3 SEC (9.8-11.6)
[2017-03-17 07:18] LABS: AUTOMATED NEUTROPHIL # 5.3 TH/MM3 (1.8-7.7); BASOPHIL % 0.4 % (0.0-2.0); EOSINOPHIL # 0.1 TH/MM3 (0-0.4); EOSINOPHIL % 1.3 % (0.0-4.0); HEMATOCRIT 24.4 % (35.0-46.0); HEMO FLAGS DIFF FINAL; LYMPH % 12.6 % (9.0-44.0); LYMPHOCYTE # 0.9 TH/MM3 (1.0-4.8); MEAN CELL VOLUME 89.9 FL (80.0-100.0); MEAN CORPUSCULAR HEMOGLOBIN 29.6 PG (27.0-34.0); MEAN CORPUSCULAR HGB CONC 32.9 % (32.0-36.0); MONO % 10.2 % (0.0-8.0); NEUT % 75.5 % (16.0-70.0); PLATELET COUNT 275 TH/MM3 (150-450); RED BLOOD COUNT 2.71 MIL/MM3 (4.00-5.30); RED CELL DISTRIBUTION WIDTH 16.5 % (11.6-17.2)
[2017-03-17 07:24] LABS: ANION GAP 10 MEQ/L (5-15); AST (GOT) 26 U/L (15-37); BICARBONATE 21.9 MEQ/L (21.0-32.0); BLOOD UREA NITROGEN 19 MG/DL (7-18); CHLORIDE 102 MEQ/L (98-107); GLOMERULAR FILTRATION RATE 49 ML/MIN (>89); MAGNESIUM 1.7 MG/DL (1.5-2.5); SODIUM (NA) 134 MEQ/L (136-145)
[2017-03-17 07:25] LABS: ALT (GPT) 15 U/L (10-53)
[2017-03-17 07:33] LABS: ALKALINE PHOSPHATASE 74 U/L (45-117); TOTAL BILIRUBIN ADULT 0.4 MG/DL (0.2-1.0)
[2017-03-17 08:00] VITALS: BP 113/63; PULSE 96; RESP 17; TEMP 98.8; O2SAT 97
[2017-03-17] MEDS: POLYETHYLENE GLYCOL 17 GM PKG PO SCH (10:45)
[2017-03-17] MEDS: DOCUSATE SODIUM 50 MG/SENNA 8.6 MG TAB PO SCH ×2 (10:45→20:48)
[2017-03-17] MEDS: oxyCODONE/ACETAMINOPHEN 10 MG/325 MG TAB PO PRN ×3 (10:45→23:44)
[2017-03-17] MEDS: SODIUM CHLORIDE 0.9% FLUSH 10 ML FLUSH IV FLUSH SCH ×2 (10:53→20:48)
[2017-03-17 12:00] VITALS: BP 115/69; PULSE 93; RESP 19; TEMP 98.6; O2SAT 99
--- NOTE | 2017-03-17 12:46 | MB ---
cc: FAY RAMIREZ MD DATE OF CONSULTATION: 03/17/2017 REASON FOR CONSULTATION 1. Right hydronephrosis status post cystoscopy with right ureteral stent insertion. 2. Urinary tract infection. HISTORY OF PRESENT ILLNESS The patient is a 51-year-old -[place] female with a past medical history of cervical cancer status post hysterectomy, chemotherapy and radiation with bilateral ureteral obstruction status post left-sided nephrostomy tube placement back in September as well as a right ureteral stent placement back in September up in [place] who presented to the hospital with worsening and ongoing low back pain. Said the pain started about three weeks ago and gradually worsened over time. She tried taking Tylenol Ultra Pain and then switched to Tramadol but neither of the medications ended up working. She presented to [facility] for further evaluation. Upon workup she was found to have an elevated creatinine of 1.48 and a possible urinary tract infection. She had MRI of her lumbar spine which showed the nephrostomy tube in her left kidney but suggested right hydronephrosis as well despite the stent being in place. Infectious Disease was consulted for management of antibiotics for this possible complicated pyelonephritis. They ordered a CT of the abdomen and pelvis without contrast done which showed persistent right hydronephrosis despite the stent, however the stent appeared to be just in the proximal ureter. Urology was consulted for this finding. Currently she states her pain is improved. She denies any fevers or chills, nausea or vomiting, hematuria or dysuria. She originally had stents placed on both sides back in September due to acute renal failure, but her creatinine continued to rise up to 4. Therefore, she subsequently had a left nephrostomy tube placed and that resolved her issues. Her baseline creatinine she said is around 1.2. She tolerates the left nephrostomy tube well but she does prefer a stent. She denies any discomfort for her at the right ureteral stent. She said she was due for stent change every six months and is due for one at this time. She denies a history of kidney stones and does occasionally get urinary tract infections. Denies any history of genitourinary malignancies. REVIEW OF SYSTEMS See HPI, otherwise all systems reviewed otherwise are negative. PAST MEDICAL HISTORY Significant for - 1. Cervical cancer. 2. DVT. 3. Chronic kidney disease. 4. Bilateral ureteral obstruction. PAST SURGICAL HISTORY 1. Tonsillectomy. 2. Left nephrostomy tube placement. 3. Hysterectomy. 4. Bilateral ureteral stent insertion. ALLERGIES FLAGYL, PENICILLIN, LEVAQUIN. CURRENT MEDICATIONS 1. Coumadin. 2. Zosyn. FAMILY HISTORY Hypertension. Denies urolithiasis or genitourinary malignancies. SOCIAL HISTORY She denies tobacco, alcohol or illicit drugs. PHYSICAL EXAMINATION VITAL SIGNS: Temperature 98, pulse 96, respiratory rate 17, BP 113/62, sating 97% on room air. GENERAL: She is alert and oriented x3, in no apparent distress. A pleasant, cooperative lady who appears her stated age. HEAD, EYES, EARS, NOSE AND THROAT/NECK: Neck is supple. Trachea is midline. No JVD. Eyes: No scleral icterus. Extraocular muscles intact. Ears: External hearing is normal. SKIN: No ulcers or rashes. Mucous membranes pink and moist. LUNGS: Clear to auscultation bilaterally. No wheezes, rales or rhonchi. HEART: Regular, rate and rhythm. No murmurs, gallops or rubs. ABDOMEN: Soft, nontender, nondistended. Positive bowel sounds. BACK: No CVA tenderness bilaterally. GENITOURINARY EXAM: Pelvic exam not indicated at this time. She does have a left nephrostomy tube that is currently draining. EXTREMITIES: Nontender. No cyanosis, clubbing or edema. PSYCHIATRIC: Normal affect. NEUROLOGIC: Cranial nerves II through XII intact. Strength 5 all four extremities. LABORATORY DATA White count 7.1, hemoglobin 8.0, hematocrit 24.4, platelet count 275. Sodium 134, potassium 4.0, chloride 102, bicarb 21.9, BUN 19, creatinine 1.38. Her urine showed large leukocyte esterase. Urine culture currently no growth in the last [address] of the abdomen and pelvis without contrast: Images reviewed. Agree with radiologist's report. The patient has right-sided hydronephrosis with an indwelling right ureteral stent that appears just to be in the proximal ureter. Her left nephrostomy tube is currently in place draining with no evidence of any hydronephrosis. ASSESSMENT The patient is a 51-year-old female with a history of cervical cancer status post hysterectomy, chemotherapy and radiation with a left nephrostomy tube and right-sided hydronephrosis status post cystoscopy and right ureteral stent insertion. PLAN 1. We will make the patient n.p.o. after midnight. 2. We will schedule for a cystoscopy, right ureteral stent exchange tomorrow. 3. She can followup to get her nephrostomy tube changed in May as scheduled. Thank you for this consult. MD MEGHAN Montano/CAITIE /10:02 AM /11:54 AM
--- NOTE | 2017-03-17 14:07 | HHI.PR ---
Subjective Remarks Patient states he was having lower back pain earlier but now it has resolved after pain medication was given. Denies fevers/chills. eating well. Denies cp/sob. Objective Vitals Vital Signs Date Time Temp Pulse Resp B/P (MAP) Pulse Ox O2 Delivery O2 Flow Rate FiO2 03/17/17 12:00 98.6 93 19 115/69 (84) 99 03/17/17 08:00 98.8 96 17 113/63 (80) 97 03/17/17 00:00 97.8 91 18 110/64 (79) 97 03/16/17 20:00 98.1 101 18 127/67 (87) 94 03/16/17 16:12 97.6 85 18 99/59 (72) 97 I/O 03/16/17 03/16/17 03/16/17 03/17/17 03/17/17 03/17/17 07:00 15:00 23:00 07:00 15:00 23:00 Intake Total 1100 ml 750 ml 100 ml 100 ml Output Total 100 ml 575 ml 700 ml Balance 1000 ml 175 ml -600 ml 100 ml Intake Oral 750 ml IV Total 1100 ml 100 ml 100 ml Output Urine Total 100 ml 700 ml Drainage Total 575 ml # Voids 2 Result Diagram: 03/17/17 0638 03/17/17 0638 Imaging Last Impressions Abdomen/Pelvis CT 03/16/17 0000 Signed Impressions: Service Date/Time: Thursday, March 16, 2017 21:59 - CONCLUSION: 1. Metastatic disease involving the visualized lung bases, liver, and inguinal lymph nodes. 2. Double J stent on the right is in good position. Despite this there is significant hydronephrosis. 3. Left-sided nephrostomy tube in good position. No hydronephrosis on this side. Yifan De La Rosa Jr., MD Lumbar Spine X-Ray 03/15/17 0000 Signed Impressions: Service Date/Time: March 15:15 - CONCLUSION: 1. Intact lumbar spine without evidence of acute process. 2. Right-sided intraureteral stent and left-sided nephrostomy tube. 3. No evidence of nephrolithiasis. Scott Winter MD Lumbar Spine MRI 03/15/17 0000 Signed Impressions: Service Date/Time: March 19:28 - CONCLUSION: 1. No acute abnormality. 2. Hydronephrosis involving the right kidney despite a double-J stent. 3. Left nephrostomy without hydronephrosis. Yifan De La Rosa Jr., MD Objective Remarks AAOx3, nad Clear lungs BL S1S2 RRR, no MRG Abdomen soft, nt, nd extremities without edema and good peripheral pulses Medications and IVs Current Medications Medications (Trade) Dose Ordered Sig/Erendira Route Start Time Stop Time Status Last Admin (Coumadin) 6 mg DAILY@16 PO 03/15/17 16:00 03/16/17 17:59 Pharmacy Profile Note 0 ml @ 0 mls/hr UNSCH OTHER 03/15/17 15:00 (NS Flush) 2 ml UNSCH PRN IV FLUSH 03/15/17 15:00 (NS Flush) 2 ml BID IV FLUSH 03/15/17 21:00 03/17/17 10:53 (Tylenol) 650 mg Q4H PRN PO 03/15/17 15:00 (Zofran Inj) 4 mg Q6H PRN IVP 03/15/17 15:00 (Tylenol) 650 mg Q6H PRN PO 03/15/17 15:00 (Narcan Inj) 0.4 mg UNSCH PRN IV PUSH 03/15/17 15:00 (Julieta-Colace) 1 tab BID PO 03/15/17 21:00 03/17/17 10:45 (Miralax) 17 gm DAILY PO 03/15/17 16:00 03/17/17 10:45 (Compazine Supp) 25 mg Q12H PRN RECTAL 03/16/17 11:45 (Percocet 5-325 Mg) 1 tab Q6H PRN PO 03/16/17 11:45 03/16/17 13:24 (Percocet 10-325 Mg) 1 tab Q6H PRN PO 03/16/17 11:45 03/17/17 10:45 (Morphine Inj) 2 mg Q3H PRN IV PUSH 03/16/17 11:45 (Morphine Inj) 4 mg Q3H PRN IV PUSH 03/16/17 11:45 03/17/17 05:27 (Milk Of Magnesia Liq) 30 ml Q12H PRN PO 03/16/17 11:45 (Senokot) 17.2 mg Q12H PRN PO 03/16/17 11:45 (Dulcolax Supp) 10 mg DAILY PRN RECTAL 03/16/17 11:45 (Lactulose Liq) 30 ml DAILY PRN PO 03/16/17 11:45 Cefepime HCl 1000 mg/Sodium Chloride 100 ml @ 200 mls/hr Q12H IV 03/16/17 16:00 03/17/17 05:30 Urinary Catheter: No Vascular Central Line Catheter: No A/P Problem List: (1) Hydronephrosis, right ICD Code: N13.30 - Unspecified hydronephrosis Plan: The patient is status post cystoscopy with right ureteral stent insertion and urinary tract infection. Neurology consulted. Appreciate recommendations. The patient has been scheduled for cystoscopy in a.m. Nothing by mouth at midnight. (2) Pyelonephritis ICD Code: N12 - Tubulo-interstitial nephritis, not specified as acute or chronic Plan: History of admission. UA indicative of infection. She does have a left nephrostomy tube in place and was started on aztreonam in the emergency department for concern of pyelonephritis. Appreciate ID consultation recommendations. Patient initially started on aztreonam, which has been discontinued and the patient is currently on IV cefepime. Continue aspirin ID recommendations. Urine culture without growth in 48 hours. (3) Low back pain ICD Code: M54.5 - Low back pain Status: Chronic Plan: Ongoing for the past 3 weeks. Much improved. Continue pain control. Lumbar spine x-ray did not show any evidence of acute process. Right-sided intraureteral stent and left-sided nephrostomy tube. No evidence of nephrolithiasis. Lumbar spine MRI did not show any acute abnormality. Hydronephrosis involving the right kidney despite a double-J stent. Left nephrostomy without hydronephrosis. Pain possibly secondary to right hydronephrosis. (4) CKD (chronic kidney disease), stage III ICD Code: N18.3 - Chronic kidney disease, stage 3 (moderate) Plan: Upon review of medical records, the patient had a creatinine of 2.28 . Today creatinine is at 1.38 which is probably the patient's baseline. Continue to monitor BUN/creatinine, strict I's and O's, avoid nephrotoxins. (5) Constipation ICD Code: K59.00 - Constipation, unspecified Status: Chronic Plan: Continue MiraLAX and Julieta-Colace. Seems to be stable now. (6) Anemia ICD Code: D64.9 - Anemia, unspecified Status: Chronic Plan: Seems to be chronic, however hemoglobin has been dropping down. Hemoglobin noted to be 9.5 on admission, slowly trending down and down to 8.0. I will check stool guaiac and iron studies. (7) DVT (deep venous thrombosis) ICD Code: I82.409 - Acute embolism and thrombosis of unspecified deep veins of unspecified lower extremity Plan: Continue Coumadin, the ASIS INR currently therapeutic at 2.1. Continue to monitor PT/INR daily. (8) Metastatic disease ICD Code: C79.9 - Secondary malignant neoplasm of unspecified site Plan: CT abdomen and pelvis as described above shows evidence of metastatic disease in a patient with recent history of cervical cancer status post chemotherapy and radiation therapy. Will consult medical oncology. Assessment and Plan DVT prophylaxis: SCDs, awake chemoprophylaxis given slow hemoglobin down trend. Discharge Planning Continue to monitor in the medical floor. The patient for cystoscopy in a.m. Oncology consultation placed. Problem Qualifiers (1) Low back pain: Qualified Codes: M54.5 - Low back pain; G89.29 - Other chronic pain (2) Constipation: Qualified Codes: K59.00 - Constipation, unspecified (3) Anemia: Qualified Codes: D64.9 - Anemia, unspecified Parish Jeong MD Mar 17, 2017 14:07
[2017-03-17 15:58] LABS: FERRITIN 574 NG/ML (8-252); TRANSFERRIN IRON PROFILE 119 MG/DL (200-360)
[2017-03-17 16:00] VITALS: BP 115/65; PULSE 94; RESP 17; TEMP 97.9; O2SAT 98
[2017-03-17] MEDS: WARFARIN SOD 6 MG TAB PO SCH (16:59)
[2017-03-17 17:53] VITALS: O2SAT 98
[2017-03-17 20:00] VITALS: BP 102/62; PULSE 98; RESP 18; TEMP 98.4; O2SAT 99
[2017-03-17] MEDS ORDERED: CHLORHEXIDINE GLUCONATE 2 % 1 PACK (2 CLOTHS) TOPICAL PRN (20:00)
[2017-03-17] MEDS ORDERED: METOPROLOL TARTRATE 25 MG TAB PO PRN (20:00)
[2017-03-17] MEDS ORDERED: INSULIN HUMAN REGULAR 1,000 UNITS/10 ML VIAL SQ PRN (20:00)
[2017-03-17] MEDS ORDERED: LACTATED RINGER'S 1000 ML IV PRN (20:00)
[2017-03-17] MEDS ORDERED: POVIDONE IODINE 5% (ANTISEPSIS KIT) 4 APPLICATIONS EACH NARE PRN (20:00)
[2017-03-17] MEDS ORDERED: SODIUM CHLORID 0.9% 500 ML IV PRN (20:00)
[2017-03-18] VITALS: BP 101/61; PULSE 96; RESP 20; TEMP 98.2; O2SAT 94
--- NOTE | 2017-03-18 00:41 | RADRPT ---
EXAM DATE/TIME: 03/18/2017 00:17 [place] COMPARISON: No previous studies available for comparison. INDICATIONS : Neoplasm. RADIATION DOSE: 3.33 CTDIvol (mGy) MEDICAL HISTORY : Deep venous thrombosis. Cervical cancer. SURGICAL HISTORY : Hysterectomy. Nephrostomy tube. ENCOUNTER: Initial ACUITY: 1 day PAIN SCALE: 0/10 LOCATION: chest TECHNIQUE: Volumetric scanning of the chest was performed. Using automated exposure control and adjustment of t he mA and/or kV according to patient size, radiation dose was kept as low as reasonably achievable to obtain optimal diagnostic quality images. DICOM format image data is available electronically for r eview and comparison. Follow-up recommendations for detected pulmonary nodules are based at a minimum on nodule size and pa tient risk factors according to Fleischner Society Guidelines. FINDINGS: There multiple bilateral pulmonary nodules characteristic of metastatic disease with the largest nodu le measuring 2.4 cm in the right lower lobe. Examination of the mediastinum demonstrates no abnormally enlarged lymph nodes by CT criteria. No axi llary or hilar abnormalities are identified. Coronary artery calcifications are not present. Infuse-a -Port is in place via left subclavian approach with its tip in the superior vena cava. Multiple hepa tic metastasis are identified. CONCLUSION: 1. Widespread pulmonary metastatic disease as above. Syd Bartholomew MD on March 18, 2017 at 0:37 Board Certified Radiologist. This report was verified electronically.
[2017-03-18] MEDS: CEFEPIME INJ 1,000 MG in SODIUM CHLORIDE 0.9% INJ 100 ML IV SCH ×2 (05:20→16:53)
[2017-03-18] MEDS: oxyCODONE/ACETAMINOPHEN 10 MG/325 MG TAB PO PRN ×3 (05:20→17:48)
[2017-03-18 05:46] LABS: AUTOMATED NEUTROPHIL # 4.5 TH/MM3 (1.8-7.7); BASOPHIL % 0.7 % (0.0-2.0); EOSINOPHIL # 0.1 TH/MM3 (0-0.4); EOSINOPHIL % 1.5 % (0.0-4.0); HEMATOCRIT 25.6 % (35.0-46.0); HEMO FLAGS DIFF FINAL; LYMPHOCYTE # 1.3 TH/MM3 (1.0-4.8); MEAN CELL VOLUME 89.6 FL (80.0-100.0); MEAN CORPUSCULAR HEMOGLOBIN 29.7 PG (27.0-34.0); MEAN CORPUSCULAR HGB CONC 33.1 % (32.0-36.0); MONO % 10.9 % (0.0-8.0); NEUT % 67.9 % (16.0-70.0); PLATELET COUNT 280 TH/MM3 (150-450); RED BLOOD COUNT 2.86 MIL/MM3 (4.00-5.30); RED CELL DISTRIBUTION WIDTH 16.3 % (11.6-17.2); WHITE BLOOD COUNT 6.6 TH/MM3 (4.0-11.0)
[2017-03-18 05:53] LABS: INTERNATIONAL NORMALIZED RATIO 2.3 RATIO; PROTHROMBIN TIME - PATIENT 26.1 SEC (9.8-11.6)
[2017-03-18 06:00] VITALS: BP 109/63; PULSE 92; RESP 18; TEMP 97.6; O2SAT 98
[2017-03-18 06:11] LABS: ANION GAP 10 MEQ/L (5-15); AST (GOT) 27 U/L (15-37); BICARBONATE 22.5 MEQ/L (21.0-32.0); BLOOD UREA NITROGEN 22 MG/DL (7-18); CHLORIDE 105 MEQ/L (98-107); GLOMERULAR FILTRATION RATE 42 ML/MIN (>89); MAGNESIUM 1.9 MG/DL (1.5-2.5); POTASSIUM 4.1 MEQ/L (3.5-5.1); SODIUM (NA) 137 MEQ/L (136-145)
[2017-03-18 06:15] LABS: ALKALINE PHOSPHATASE 74 U/L (45-117); ALT (GPT) 11 U/L (10-53); TOTAL BILIRUBIN ADULT 0.4 MG/DL (0.2-1.0)
[2017-03-18] MEDS: POLYETHYLENE GLYCOL 17 GM PKG PO SCH (07:37)
[2017-03-18] MEDS: DOCUSATE SODIUM 50 MG/SENNA 8.6 MG TAB PO SCH ×2 (07:37→19:35)
[2017-03-18] MEDS: SODIUM CHLORIDE 0.9% FLUSH 10 ML FLUSH IV FLUSH SCH ×2 (07:38→19:36)
--- NOTE | 2017-03-18 08:48 | PD.OP ---
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 Next stent change in 6-12 months. Jimbo Rondon MD Mar 18, 2017 08:48
[2017-03-18] MEDS ORDERED: *morphine SULFATE 8 MG/ML PERIprocedure ONLY ONE (09:18)
[2017-03-18] MEDS ORDERED: DO NOT ADM ANY ANTICOAGULANT DRUGS PRN (09:30)
[2017-03-18 10:31] LABS: HEMOGLOBIN A1a 1.2 %; HEMOGLOBIN A1b 0.8 %; HEMOGLOBIN Ao 85.9 %; HEMOGLOBIN F 1.3 %; HEMOGLOBIN LA1C 1.8 %; HEMOGLOBIN P3 4.8 %
[2017-03-18 12:00] VITALS: BP 112/72; PULSE 84; RESP 16; TEMP 97.8; O2SAT 98
[2017-03-18] MEDS ORDERED: MIDAZOLAM HCL 2 MG/2 ML VIAL IV ONE (12:00)
[2017-03-18] MEDS ORDERED: PROPOFOL 200 MG/20 ML AMP IV ONE (12:00)
[2017-03-18] MEDS ORDERED: ONDANSETRON HCL 4 MG/2 ML VIAL IV PUSH ONE (12:00)
[2017-03-18] MEDS ORDERED: LIDOCAINE HCL 1% PF 5 ML AMPULE OTHER ONE (12:00)
--- NOTE | 2017-03-18 13:01 | EKG ---
Date Performed: 03/17/2017 Time Performed: 18:32:56 PTAGE: 51 years EKG: Sinus rhythm NORMAL ECG PREVIOUS TRACING : 06/19/2016 20.25 Since previous tracing, no significant change. DOCTOR: Yosi Pinto Interpretating Date/Time 03/18/2017 12:58:29
--- NOTE | 2017-03-18 15:11 | MP ---
cc: JIMBO RAMIREZ MD DATE OF SURGERY: 03/18/2017. PREOPERATIVE DIAGNOSIS: 1. Right hydronephrosis 2. History of cervical cancer status post hysterectomy, chemotherapy and radiation. 3. Bladder outlet obstruction secondary to extrinsic compression. POSTOPERATIVE DIAGNOSIS: 1. Right hydronephrosis 2. History of cervical cancer status post hysterectomy, chemotherapy and radiation. 3. Bladder outlet obstruction secondary to extrinsic compression. OPERATIVE PROCEDURE PERFORMED: 1. Cystourethroscopy. 2. Right ureteral stent exchange. SURGEON: Jimbo Ramirez MD. ANESTHESIA: General. COMPLICATIONS: None. ANTIBIOTICS: Cefepime 1 gram IV. DRAINS: A 6 x 26 double-J Bard long-term ureteral stent. DISPOSITION: To recovery. INDICATIONS FOR THE PROCEDURE: The patient is a 51-year-old -[place] female with history of cervical cancer status post hysterectomy, chemotherapy and radiation with bilateral ureteral obstruction and secondary extrinsic compression who was admitted to the [facility] with left-sided lower back pain. The patient recently moved down here from [place] where back in September she had bilateral nephrostomy tubes placed due to bilateral hydronephrosis from her cervical cancer; however she continued to progress to renal failure and developed hydronephrosis on the left side so she subsequently had a left nephrostomy tube inserted. She is getting left nephrostomy tubes inserted every three months. When she came to [place] [facility] for evaluation of her back pain, she had a CT abdomen and pelvis with and without contrast performed, which showed significant right hydronephrosis and the ureteral stent was in position. The left nephrostomy tube was seen to be draining well with no evidence of hydronephrosis on the left side. Her creatinine continued to rise from her baseline; After the risks, benefits, and alternatives were explained, the patient elected to proceed and informed consent was obtained. DESCRIPTION OF THE PROCEDURE IN DETAIL: The patient was properly identified and brought back to the operating room and laid supine on the operating table. Proper time-out was performed under the direction of anesthesiology. The patient and induced under general aesthetic. The patient had been receiving cefepime 1 gram IV q. 12 hours; therefore, preoperative antibiotics were not indicated. She was then placed in the dorsal lithotomy position and prepped and draped in the normal sterile surgical fashion. A rigid cystoscope with 22-Kittitian sheath was carefully passed in the bladder per urethra without any difficulty. The distal portion of the right ureteral stent was identified. Fluoroscopic images were taken which showed the stent in place. Using Alligator grasping forceps, I was able to grab the distal portion of the stent and remove it just outside the urethral meatus. Under the guidance of fluoroscopy, I then passed a wire and placed it up into her right kidney. The stent was then removed. I then backloaded a 6 x 26 Bard long-term double-J stent over the wire and up into the right kidney. A proximal curl was seen in the lower pole. The wire was removed and a good curl was seen in the bladder. This concluded the procedure. The patient was then extubated and sent to recovery in stable condition. She will be transferred back to the floor for routine postoperative care. From the urology standpoint, she is okay to be discharged home. Her next stent change does not need to be done for another six to twelve months; however she does need her nephrostomy tube changed as scheduled. MD MEGHAN Montano/[place] /8:56 AM /2:59 PM
[2017-03-18 16:00] VITALS: BP 114/77; PULSE 80; RESP 17; TEMP 97.7; O2SAT 97
[2017-03-18] MEDS: WARFARIN SOD 6 MG TAB PO SCH (16:53)
--- NOTE | 2017-03-18 18:10 | HHI.PR ---
Subjective Remarks states flank pain better. denies cp/sob. Denies fevers/chills Objective Vitals Vital Signs Date Time Temp Pulse Resp B/P (MAP) Pulse Ox O2 Delivery O2 Flow Rate FiO2 03/18/17 16:00 97.7 80 17 114/77 (89) 97 03/18/17 12:00 97.8 84 16 112/72 (85) 98 03/18/17 09:40 97.9 83 16 119/75 (90) 100 Room Air 03/18/17 09:30 80 12 119/75 (90) 100 03/18/17 09:15 91 8 118/77 (91) 100 Nasal Cannula 2 03/18/17 09:01 97.9 97 16 124/79 (94) 100 Nasal Cannula 2 03/18/17 06:00 97.6 92 18 109/63 (78) 98 03/18/17 00:00 98.2 96 20 101/61 (74) 94 03/17/17 20:00 98.4 98 18 102/62 (75) 99 I/O 03/17/17 03/17/17 03/17/17 03/18/17 03/18/17 03/18/17 07:00 15:00 23:00 07:00 15:00 23:00 Intake Total 100 ml 100 ml 860 ml 100 ml 250 ml Output Total 700 ml 150 ml 1150 ml 300 ml 20 ml 275 ml Balance -600 ml -50 ml -290 ml -200 ml 230 ml -275 ml Intake Oral 360 ml IV Total 100 ml 100 ml 500 ml 100 ml Other 250 ml Output Urine Total 700 ml 100 ml Drainage Total 150 ml 1050 ml 300 ml 275 ml Estimated Blood Loss 20 ml # Voids 2 # Bowel Movements 1 Result Diagram: 03/18/17 0520 03/18/17 0520 Imaging Last [address] 03/17/17 0000 Signed Impressions: Service Date/Time: Saturday, March 18, 2017 00:17 - CONCLUSION: 1. Widespread pulmonary metastatic disease as above. Syd Bartholomew MD Abdomen/Pelvis CT 03/16/17 0000 Signed Impressions: Service Date/Time: Thursday, March 16, 2017 21:59 - CONCLUSION: 1. Metastatic disease involving the visualized lung bases, liver, and inguinal lymph nodes. 2. Double J stent on the right is in good position. Despite this there is significant hydronephrosis. 3. Left-sided nephrostomy tube in good position. No hydronephrosis on this side. Yifan De La Rosa Jr., MD Objective Remarks AAOx3, nad Clear lungs BL S1S2 RRR, no MRG Abdomen soft, nt, nd extremities without edema and good peripheral pulses Medications and IVs Current Medications Medications (Trade) Dose Ordered Sig/Erendira Route Start Time Stop Time Status Last Admin (Coumadin) 6 mg DAILY@16 PO 03/15/17 16:00 03/18/17 16:53 Pharmacy Profile Note 0 ml @ 0 mls/hr UNSCH OTHER 03/15/17 15:00 (NS Flush) 2 ml UNSCH PRN IV FLUSH 03/15/17 15:00 (NS Flush) 2 ml BID IV FLUSH 03/15/17 21:00 03/18/17 07:38 (Tylenol) 650 mg Q4H PRN PO 03/15/17 15:00 (Zofran Inj) 4 mg Q6H PRN IVP 03/15/17 15:00 (Tylenol) 650 mg Q6H PRN PO 03/15/17 15:00 (Narcan Inj) 0.4 mg UNSCH PRN IV PUSH 03/15/17 15:00 (Julieta-Colace) 1 tab BID PO 03/15/17 21:00 03/18/17 07:37 (Miralax) 17 gm DAILY PO 03/15/17 16:00 03/18/17 07:37 (Compazine Supp) 25 mg Q12H PRN RECTAL 03/16/17 11:45 (Percocet 5-325 Mg) 1 tab Q6H PRN PO 03/16/17 11:45 03/16/17 13:24 (Percocet 10-325 Mg) 1 tab Q6H PRN PO 03/16/17 11:45 03/18/17 17:48 (Morphine Inj) 2 mg Q3H PRN IV PUSH 03/16/17 11:45 (Morphine Inj) 4 mg Q3H PRN IV PUSH 03/16/17 11:45 03/17/17 05:27 (Milk Of Magnesia Liq) 30 ml Q12H PRN PO 03/16/17 11:45 (Senokot) 17.2 mg Q12H PRN PO 03/16/17 11:45 (Dulcolax Supp) 10 mg DAILY PRN RECTAL 03/16/17 11:45 (Lactulose Liq) 30 ml DAILY PRN PO 03/16/17 11:45 Cefepime HCl 1000 mg/Sodium Chloride 100 ml @ 200 mls/hr Q12H IV 03/16/17 16:00 03/18/17 16:53 Lactated Ringer's 1,000 ml @ 30 mls/hr Q24H PRN IV 03/17/17 20:00 03/20/17 19:59 Sodium Chloride 500 ml @ 30 mls/hr [id number] PRN IV 03/17/17 20:00 03/20/17 19:59 (Lopressor) 25 mg TEAM LEADER PRN PO 03/17/17 20:00 03/20/17 19:59 (Betadine 5% Antisepsis Kit) 1 applic TEAM LEADER PRN EACH NARE 03/17/17 20:00 03/20/17 19:59 (Chlorhexidine 2% Cloth) 3 pack TEAM LEADER PRN TOPICAL 03/17/17 20:00 03/20/17 19:59 (NovoLIN R INJ) See Protocol Table ... TEAM LEADER PRN SQ 03/17/17 20:00 03/20/17 19:59 Miscellaneous Information ALL NURSING DEPARTME... UNSCH PRN .XX 03/18/17 09:30 03/19/17 09:29 Urinary Catheter: No Vascular Central Line Catheter: No A/P Problem List: (1) Hydronephrosis, right ICD Code: N13.30 - Unspecified hydronephrosis Plan: The patient is status post cystoscopy with right ureteral stent insertion and urinary tract infection. Neurology consulted. Appreciate recommendations. The patient has been scheduled for cystoscopy in a.m. Nothing by mouth at midnight. 03/18 the patient is status post cystourethroscopy with right ureteral stent exchange by Dr. Jimbo Rondon. Continue to monitor BUN/creatinine which has been trending up. (2) Pyelonephritis ICD Code: N12 - Tubulo-interstitial nephritis, not specified as acute or chronic Plan: History of admission. UA indicative of infection. She does have a left nephrostomy tube in place and was started on aztreonam in the emergency department for concern of pyelonephritis. Appreciate ID consultation recommendations. Patient initially started on aztreonam, which has been discontinued and the patient is currently on IV cefepime. Continue aspirin ID recommendations. Urine culture without growth in 48 hours. (3) Low back pain ICD Code: M54.5 - Low back pain Status: Chronic Plan: Ongoing for the past 3 weeks. Much improved. Continue pain control. Lumbar spine x-ray did not show any evidence of acute process. Right-sided intraureteral stent and left-sided nephrostomy tube. No evidence of nephrolithiasis. Lumbar spine MRI did not show any acute abnormality. Hydronephrosis involving the right kidney despite a double-J stent. Left nephrostomy without hydronephrosis. Pain possibly secondary to right hydronephrosis. (4) CKD (chronic kidney disease), stage III ICD Code: N18.3 - Chronic kidney disease, stage 3 (moderate) Plan: Upon review of medical records, the patient had a creatinine of 2.28 . Abdomen came down, however it slowly trending up. Continue to monitor BUN/creatinine. (5) Constipation ICD Code: K59.00 - Constipation, unspecified Status: Chronic Plan: Continue MiraLAX and Julieta-Colace. Seems to be stable now. (6) Anemia ICD Code: D64.9 - Anemia, unspecified Status: Chronic Plan: Seems to be chronic, however hemoglobin has been dropping down. Hemoglobin noted to be 9.5 on admission, slowly trending down and down to 8.0. I will check stool guaiac and iron studies. 03/18 iron studies consistent with anemia of chronic disease. Stool guaiac ordered and pending. (7) DVT (deep venous thrombosis) ICD Code: I82.409 - Acute embolism and thrombosis of unspecified deep veins of unspecified lower extremity Plan: On coumadin. INR therapeutic. Hold Coumadin for possible biopsy. (8) Metastatic disease ICD Code: C79.9 - Secondary malignant neoplasm of unspecified site Plan: CT abdomen and pelvis as described above shows evidence of metastatic disease in a patient with recent history of cervical cancer status post chemotherapy and radiation therapy. Will consult medical oncology ---> recommendations pending. Assessment and Plan DVT prophylaxis: SCDs, awake chemoprophylaxis given slow hemoglobin down trend. Discharge Planning Continue to monitor in the medical floor. The patient for cystoscopy in a.m. Oncology consultation placed. Problem Qualifiers (1) Low back pain: Qualified Codes: M54.5 - Low back pain; G89.29 - Other chronic pain (2) Constipation: Qualified Codes: K59.00 - Constipation, unspecified (3) Anemia: Qualified Codes: D64.9 - Anemia, unspecified Parish Jeong MD Mar 18, 2017 18:10
[2017-03-18 18:59] VITALS: O2SAT 97
[2017-03-18 20:00] VITALS: BP 100/59; PULSE 99; RESP 17; TEMP 98; O2SAT 95
[2017-03-19] VITALS: BP 110/61; PULSE 98; RESP 17; TEMP 98.8; O2SAT 98
[2017-03-19] MEDS: oxyCODONE/ACETAMINOPHEN 10 MG/325 MG TAB PO PRN ×3 (03:09→20:35)
[2017-03-19] MEDS: CEFEPIME INJ 1,000 MG in SODIUM CHLORIDE 0.9% INJ 100 ML IV SCH ×2 (03:10→15:46)
[2017-03-19] MEDS ORDERED: diphenhydrAMINE HCL 25 MG CAP PO ONE (04:45)
--- NOTE | 2017-03-19 06:27 | MB ---
cc: KARYN MUIR DATE OF CONSULTATION March 18, 2017 REASON FOR CONSULTATION Patient with a history of cervical cancer, now has metastatic lesions in the lung. HISTORY OF PRESENT ILLNESS Ms. Dubon is a 51-year-old female who was diagnosed with cervical cancer in 2005. She was sent in the [place] area around that time and received radiation and chemotherapy. Subsequently she moved to [place]. She did not have any further followup with an oncologist. However, she was deemed be cured. She has a history of chronic kidney disease and also DVT. She presents to the emergency department with lower back pain. In the emergency department a CT scan of the abdomen and pelvis was obtained. This revealed numerous hepatic metastatic lesions. The average-sized lesions were 2 cm. There was a double-J stent on the right. There was still significant right-sided hydronephrosis. There was a nephrostomy tube involving the left kidney which was in good position. No hydronephrosis was seen on this side. There were pulmonary masses that were visualized on the CT of the abdomen in the right lung base. She also had a lumbar spine MRI. This did not show any acute abnormality. Again hydronephrosis was noted in the right kidney. The patient was evaluated by Nephrology and she underwent cystourethroscopy with right ureteral stent exchange. CT imaging of the chest was obtained which showed multiple bilateral pulmonary nodules characteristic of metastatic disease with the largest nodule measuring 2.4 cm in the right lower lobe. The patient was has been anemic and had a hemoglobin of 9.5 which has subsequently dropped to 8.5. Her MCV is completely normal. WBC is 6.6 and platelet count is 280,030. Her ESR is elevated to greater than 140. The patient was found to be in any acute renal failure on admission. However, she does have a history of chronic kidney disease. It is unclear what her baseline creatinine is. Anemia studies were obtained on admission which show elevated ferritin levels with decreased iron saturation, low TIBC and low iron levels. Liver functions are completely normal. REVIEW OF SYSTEMS A comprehensive 14-point review of systems was completed which is negative except as described in the HPI. PAST MEDICAL HISTORY 1. History of cervical cancer status post hysterectomy, chemotherapy and radiation treatments. 2. History of DVTs. 3. CKD. 4. Left-sided nephrostomy tube placement. 5. Tonsillectomy. MEDICATIONS 1. Lopressor 25 mg p.o. p.r.n. 2. Chlorhexidine. 3. Betadine. 4. Cefepime 1 gram IV q.12 hours. 5. Compazine 25 mg suppository q.12 hours p.r.n. 6. Percocet 5/325 one tablet p.o. q. 6 hours p.r.n. 7. Morphine sulfate 2 mg IV q.3 hours p.r.n. 8. Milk of magnesia p.r.n. 9. Senna p.r.n. 10. Bisacodyl p.r.n. 11. Lactulose p.r.n. ALLERGIES LEVOFLOXACIN. METRONIDAZOLE. PENICILLIN G. PHYSICAL EXAMINATION VITAL SIGNS: Blood pressure is 114/77, pulse in the 80s, temperature is 97.7. O2 sats are 97% on room air. GENERAL: A thin, acutely ill-appearing female in no apparent distress. HEENT: Pupils are equal, round, reactive to light. EOMI. No oral thrush. No oral lesions. NECK: Supple. No JVD, no bruits, no lymphadenopathy. CHEST: Clear to auscultation bilaterally. CARDIAC: S1-S2, regular rate and rhythm. ABDOMEN: Soft. She complains of right flank pain. This is a constant aching pain. Bowel sounds are present. EXTREMITIES: Without any edema, erythema or cyanosis. SKIN: Without any petechiae, lesion or bruises. NEURO: No focal deficit. PSYCHIATRIC: Mood and affect is appropriate. LABORATORY DATA WBC is 6.6, hemoglobin is 8.5, MCV is 89.6, platelet count is 280. Serum chemistries show a sodium of 137, potassium 4.1, chloride 105, CO2 is 22.5, BUN is 22, creatinine is 1.55, GFR is 42. Phosphorus was 3.1, magnesium 1.9, AST is 27, ALT is 11, alk phos is 74, albumin is 2.3. PT is 26.1, INR is 2.3. IMAGING STUDIES Reviewed in the EMR. ASSESSMENT AND PLAN This is a 51-year-old female who has a past medical history of cervical cancer diagnosed in 2005. She underwent hysterectomy as well as chemotherapy and radiation treatments. She now presents to the emergency department with right flank pain. She was found to have hydronephrosis on the right side and she has undergone stent exchange. On abdominal imaging she was found to have hepatic mets and additional imaging was obtained including CT of the chest which revealed bilateral pulmonary masses. 1. Bilateral pulmonary masses with multiple hepatic lesions with a history of cervical cancer. These lesions are highly suspicious for metastatic disease. Metastatic cervical cancer versus another primary malignancy is suspected. The patient will need to have a biopsy to confirm diagnosis. She is currently on anticoagulation and INR is 2.3. We will need to stop Coumadin and start heparin GTT. Once her INR is below 1.6 we will consult Interventional Radiology for a CT-guided biopsy of the liver lesions. 2. Normocytic anemia with a hemoglobin of 8.5. Obtain anemia studies. Check iron, B12 and folate levels. Obtain a stool hemoccult, total bilirubin level is normal at 0.4. There does not appear to be any underlying hemolysis. Check LDH and haptoglobin. 3. Acute on chronic renal failure with right-sided hydronephrosis. She is status post stent exchange. 4. Anemia of chronic inflammation. 5. Malnutrition/hypogammaglobulinemia with albumin of 2.3. Obtain dietitian consult. Encourage p.o. intake. Supplement diet with Ensure or Boost t.i.d. with meals. 6. UTI. UA showed leukocyte esterase large with abundant WBCs and rare urine bacteria. However, urine culture has not has not grown anything. She is currently on cefepime. Thank you for allowing me to participate in the care of this patient. I will continue to follow this patient along. MD EDUARDO Carrillo/[place]AD[place] /1:11 AM /6:14 AM
[2017-03-19 08:00] VITALS: BP 107/66; PULSE 97; RESP 18; TEMP 98; O2SAT 98
[2017-03-19 08:22] LABS: PROTHROMBIN TIME - PATIENT 22.5 SEC (9.8-11.6)
[2017-03-19 08:36] LABS: HEMATOCRIT 25.1 % (35.0-46.0); MEAN CELL VOLUME 89.1 FL (80.0-100.0); MEAN CORPUSCULAR HEMOGLOBIN 29.2 PG (27.0-34.0); MEAN CORPUSCULAR HGB CONC 32.8 % (32.0-36.0); PLATELET COUNT 280 TH/MM3 (150-450); RED BLOOD COUNT 2.82 MIL/MM3 (4.00-5.30); RED CELL DISTRIBUTION WIDTH 16.4 % (11.6-17.2); REVIEW FLAG FINAL; WHITE BLOOD COUNT 7.1 TH/MM3 (4.0-11.0)
[2017-03-19] MEDS: DOCUSATE SODIUM 50 MG/SENNA 8.6 MG TAB PO SCH ×2 (08:41→20:32)
[2017-03-19] MEDS: SODIUM CHLORIDE 0.9% FLUSH 10 ML FLUSH IV FLUSH SCH ×2 (08:42→20:32)
[2017-03-19] MEDS: POLYETHYLENE GLYCOL 17 GM PKG PO SCH (08:42)
[2017-03-19 08:43] LABS: BICARBONATE 23.5 MEQ/L (21.0-32.0); POTASSIUM 4.1 MEQ/L (3.5-5.1)
--- NOTE | 2017-03-19 10:44 | PD.ONC.PN ---
Subjective Subjective Remarks Afebrile overnight. Patient resting in room in nad. No complaints. Objective Data Date Time Temp Pulse Resp B/P (MAP) Pulse Ox O2 Delivery O2 Flow Rate FiO2 03/19/17 08:00 98.0 97 18 107/66 (80) 98 03/19/17 00:00 98.8 98 17 110/61 (77) 98 03/18/17 20:00 98.0 99 17 100/59 (73) 95 03/18/17 18:59 97 03/18/17 16:00 97.7 80 17 114/77 (89) 97 03/18/17 12:00 97.8 84 16 112/72 (85) 98 03/19/17 03/19/17 03/19/17 07:00 15:00 23:00 Intake Total 700 ml Output Total 485 ml Balance 215 ml Result Diagram: 03/19/17 0736 03/19/1736 Laboratory Results Laboratory Tests Test 03/19/17 07:36 White Blood Count 7.1 TH/MM3 Red Blood Count 2.82 MIL/MM3 Hemoglobin 8.2 GM/DL Hematocrit 25.1 % Mean Corpuscular Volume 89.1 FL Mean Corpuscular Hemoglobin 29.2 PG Mean Corpuscular Hemoglobin Concent 32.8 % Red Cell Distribution Width 16.4 % Platelet Count 280 TH/MM3 Mean Platelet Volume 7.9 FL Prothrombin Time 22.5 SEC Prothromb Time International Ratio 2.0 RATIO Blood Urea Nitrogen 24 MG/DL Creatinine 1.55 MG/DL Random Glucose 90 MG/DL Calcium Level 8.9 MG/DL Sodium Level 133 MEQ/L Potassium Level 4.1 MEQ/L Chloride Level 104 MEQ/L Carbon Dioxide Level 23.5 MEQ/L Anion Gap 6 MEQ/L Estimat Glomerular Filtration Rate 42 ML/MIN Administered Medications Medications (Trade) Dose Ordered Sig/Erendira Route PRN Reason Start Time Stop Time Status Last Admin Dose Admin Sodium Chloride (NS Flush) 2 ml BID IV FLUSH 03/15/17 21:00 03/19/17 08:42 Senna/Docusate Sodium (Julieta-Colace) 1 tab BID PO 03/15/17 21:00 03/19/17 08:41 Polyethylene Glycol (Miralax) 17 gm DAILY PO 03/15/17 16:00 03/19/17 08:42 Oxycodone/ Acetaminophen (Percocet 5-325 Mg) 1 tab Q6H PRN PO PAIN SCALE 3 TO 5 03/16/17 11:45 03/16/17 13:24 Oxycodone/ Acetaminophen (Percocet 10-325 Mg) 1 tab Q6H PRN PO PAIN SCALE 6 TO 10 03/16/17 11:45 03/19/17 03:09 Morphine Sulfate (Morphine Inj) 4 mg Q3H PRN IV PUSH Pain 6-10;if unable to take PO 03/16/17 11:45 03/17/17 05:27 Cefepime HCl 1000 mg/Sodium Chloride 100 ml @ 200 mls/hr Q12H IV 03/16/17 16:00 03/19/17 03:10 Objective Remarks GENERAL: Middle aged female sitting up in bed in nad. SKIN: Warm and dry. HEAD: Normocephalic. EYES: No injection or drainage. NECK: Supple, trachea midline. CARDIOVASCULAR: Regular rate and rhythm RESPIRATORY: Breath sounds equal bilaterally. No accessory muscle use. GASTROINTESTINAL: Abdomen soft, non-tender, nondistended. EXTREMITIES: No cyanosis NEUROLOGICAL: awake and alert, normal speech. moving all extremities. BACK: bandage in place, left CVA, nephrostomy tube in place draining into bag. Assessment/Plan Problem List: (1) Metastatic disease ICD Codes: C79.9 - Secondary malignant neoplasm of unspecified site Plan: --Bilateral pulmonary masses with multiple hepatic lesions with a history of cervical cancer. --These lesions are highly suspicious for metastatic disease. --Metastatic cervical cancer versus another primary malignancy is suspected. patient will need to have a biopsy to confirm diagnosis (2) DVT (deep venous thrombosis) ICD Codes: I82.409 - Acute embolism and thrombosis of unspecified deep veins of unspecified lower extremity Status: Chronic Plan: --currently on heparin gtt. --awaiting INR to fall to less than 1.6 before consulting IR for CT guided biopsy of liver lesions. (3) Normocytic anemia ICD Codes: D64.9 - Anemia, unspecified Plan: -- Normocytic anemia with a hemoglobin of 8.5. --iron studies more consistent with anemia of chronic disease--ferritin is 574 --Obtain a stool Hemoccult, total bilirubin level is normal at 0.4. --does not appear to be any underlying hemolysis. await LDH and haptoglobin. (4) Renal insufficiency ICD Codes: N28.9 - Disorder of kidney and ureter, unspecified Plan: --Acute on chronic renal failure with right-sided hydronephrosis. --status post stent exchange. (5) UTI (urinary tract infection) ICD Codes: N39.0 - Urinary tract infection, site not specified Plan: --UA showed leukocyte esterase large with abundant WBCs and rare urine bacteria. --urine culture no growth --currently on cefepime. Assessment This is a 51-year-old female who has a past medical history of cervical cancer diagnosed in 2005. She underwent hysterectomy as well as chemotherapy and radiation treatments. She now presents to the emergency department with right flank pain. She was found to have hydronephrosis on the right side and she has undergone stent exchange. On abdominal imaging she was found to have hepatic mets and additional imaging was obtained including CT of the chest which revealed bilateral pulmonary masses. History of DVTs. CKD. Left-sided nephrostomy tube placement. Tonsillectomy. Plan 1. consult IR for biopsy when INR is less than 1.6 2. monitor CBC 3. check LDH/haptoglobin Attending Statement The exam, history, and the medical decision-making described in the above note were completed with the assistance of the mid-level provider. I reviewed and agree with the findings presented. I attest that I had a [id number] encounter with the patient on the same day, and personally performed and documented my assessment and findings in the medical record Start Heparin GTT CT guided biopsy of lung lesions in am stop heparin 3 hours before procedure may need Vitamin K if INR is still high tomorrow Hb stable supportive care d/w rn o/n events reviewed Debra Newell Mar 19, 2017 10:44 Coleman Hester MD Mar 20, 2017 00:00
[2017-03-19 12:00] VITALS: BP 119/72; PULSE 108; RESP 18; TEMP 99.5; O2SAT 99
[2017-03-19 16:00] VITALS: BP 112/68; PULSE 103; RESP 18; TEMP 99.8; O2SAT 98
--- NOTE | 2017-03-19 16:33 | HHI.IDPN ---
Subjective Subjective Remarks Patient is a 51-year-old female, with history of cervical cancer, had undergone surgical treatment, as well as radiation, and recently completed chemotherapy last month. This was all done in [place], and she recently moved down here in [place] to stay with her daughter. She apparently started having problem with pain in her low back while she was up in [place]. She thought it was related to a previous accident, and the pain started getting worse. She denies any urinary complaints. She has not had any problem with her left nephrostomy. No nausea or vomiting. No dysuria. She has been constipated. No fever or chills. Patient apparently when she had recurrent cervical cancer last year, was found to have significant adhesions causing bilateral hydronephrosis. She had placement of a left nephrostomy, and it has been scheduled to get changed every 3 months. The last time it was change was about a month ago. She also has a stent in her right ureter. When she presented here, she is afebrile. Her WBC is normal. Her creatinine is slightly elevated, and according to the patient she has chronic renal insufficiency. Her urinalysis showed mild pyuria with 16 WBC. Looks like it was a clean catch urine. Patient had an MRI of her lumbar spine and it did not show any lumbar spine abnormality. It did show the presence of the nephrostomy tube on the left kidney, but no hydronephrosis. There is right hydronephrosis despite the presence of a stent. Infectious disease consultation has been requested to evaluate the patient with UTI and has complicated urologic problem Notes reviewed Appreciate urology assistance Had exchange of stent 03/18 Imaging studies showing lesions in liver and lung Biopsy of lung lesions being planned when INR down Antibiotics Cefepime Current Medications Medications (Trade) Dose Ordered Sig/Erendira Route Start Time Stop Time Status Last Admin (NS Flush) 2 ml UNSCH PRN IV FLUSH 03/15/17 15:00 03/19/17 15:46 (NS Flush) 2 ml BID IV FLUSH 03/15/17 21:00 03/19/17 08:42 (Tylenol) 650 mg Q4H PRN PO 03/15/17 15:00 (Zofran Inj) 4 mg Q6H PRN IVP 03/15/17 15:00 (Tylenol) 650 mg Q6H PRN PO 03/15/17 15:00 (Narcan Inj) 0.4 mg UNSCH PRN IV PUSH 03/15/17 15:00 (Julieta-Colace) 1 tab BID PO 03/15/17 21:00 03/19/17 08:41 (Miralax) 17 gm DAILY PO 03/15/17 16:00 03/19/17 08:42 (Compazine Supp) 25 mg Q12H PRN RECTAL 03/16/17 11:45 (Percocet 5-325 Mg) 1 tab Q6H PRN PO 03/16/17 11:45 03/16/17 13:24 (Percocet 10-325 Mg) 1 tab Q6H PRN PO 03/16/17 11:45 03/19/17 14:05 (Morphine Inj) 2 mg Q3H PRN IV PUSH 03/16/17 11:45 (Morphine Inj) 4 mg Q3H PRN IV PUSH 03/16/17 11:45 03/17/17 05:27 (Milk Of Magnesia Liq) 30 ml Q12H PRN PO 03/16/17 11:45 (Senokot) 17.2 mg Q12H PRN PO 03/16/17 11:45 (Dulcolax Supp) 10 mg DAILY PRN RECTAL 03/16/17 11:45 (Lactulose Liq) 30 ml DAILY PRN PO 03/16/17 11:45 Cefepime HCl 1000 mg/Sodium Chloride 100 ml @ 200 mls/hr Q12H IV 03/16/17 16:00 03/19/17 15:46 Lactated Ringer's 1,000 ml @ 30 mls/hr Q24H PRN IV 03/17/17 20:00 03/20/17 19:59 Sodium Chloride 500 ml @ 30 mls/hr [id number] PRN IV 03/17/17 20:00 03/20/17 19:59 (Lopressor) 25 mg METAL BUGGY OPERATOR PRN PO 03/17/17 20:00 03/20/17 19:59 (Betadine 5% Antisepsis Kit) 1 applic METAL BUGGY OPERATOR PRN EACH NARE 03/17/17 20:00 03/20/17 19:59 (Chlorhexidine 2% Cloth) 3 pack METAL BUGGY OPERATOR PRN TOPICAL 03/17/17 20:00 03/20/17 19:59 (NovoLIN R INJ) See Protocol Table ... METAL BUGGY OPERATOR PRN SQ 03/17/17 20:00 03/20/17 19:59 Past Medical History Cervical cancer s/p hysterectomy, chemotherapy and radiation DVT CKD Past Surgical History Tonsillectomy Hysterectomy Left nephrostomy Ureteral stent on the right Hernia repair Left rotator cuff repair Allergies: Coded Allergies: levofloxacin (Unverified Allergy, Unknown, 03/15/17) metronidazole (Unverified Allergy, Unknown, 03/15/17) penicillin G (Unverified Allergy, Unknown, 03/15/17) Objective . Vital Signs Date Time Temp Pulse Resp B/P (MAP) Pulse Ox O2 Delivery O2 Flow Rate FiO2 03/19/17 16:00 99.8 103 18 112/68 (83) 98 03/19/17 15:05 18 03/19/17 12:00 99.5 108 18 119/72 (88) 99 03/19/17 08:00 98.0 97 18 107/66 (80) 98 03/19/17 00:00 98.8 98 17 110/61 (77) 98 03/18/17 20:00 98.0 99 17 100/59 (73) 95 03/18/17 18:59 97 03/19/17 03/19/17 03/20/17 15:00 23:00 07:00 Output Total 350 ml Balance -350 ml Drainage Total 350 ml . Laboratory Tests Test 03/18/17 05:20 03/19/17 07:36 White Blood Count 6.6 TH/MM3 7.1 TH/MM3 Red Blood Count 2.86 MIL/MM3 2.82 MIL/MM3 Hemoglobin 8.5 GM/DL 8.2 GM/DL Hematocrit 25.6 % 25.1 % Mean Corpuscular Volume 89.6 FL 89.1 FL Mean Corpuscular Hemoglobin 29.7 PG 29.2 PG Mean Corpuscular Hemoglobin Concent 33.1 % 32.8 % Red Cell Distribution Width 16.3 % 16.4 % Platelet Count 280 TH/MM3 280 TH/MM3 Mean Platelet Volume 7.7 FL 7.9 FL Neutrophils (%) (Auto) 67.9 % Lymphocytes (%) (Auto) 19.0 % Monocytes (%) (Auto) 10.9 % Eosinophils (%) (Auto) 1.5 % Basophils (%) (Auto) 0.7 % Neutrophils # (Auto) 4.5 TH/MM3 Lymphocytes # (Auto) 1.3 TH/MM3 Monocytes # (Auto) 0.7 TH/MM3 Eosinophils # (Auto) 0.1 TH/MM3 Basophils # (Auto) 0.0 TH/MM3 CBC Comment DIFF FINAL Differential Comment Haptoglobin 428 MG/DL Laboratory Tests Test 03/18/17 05:20 03/19/17 07:36 03/19/17 10:40 Blood Urea Nitrogen 22 MG/DL 24 MG/DL Creatinine 1.55 MG/DL 1.55 MG/DL Random Glucose 88 MG/DL 90 MG/DL Total Protein 7.2 GM/DL Albumin 2.3 GM/DL Calcium Level 8.9 MG/DL 8.9 MG/DL Phosphorus Level 3.1 MG/DL Magnesium Level 1.9 MG/DL Alkaline Phosphatase 74 U/L Aspartate Amino Transf (AST/SGOT) 27 U/L Alanine Aminotransferase (ALT/SGPT) 11 U/L Total Bilirubin 0.4 MG/DL Sodium Level 137 MEQ/L 133 MEQ/L Potassium Level 4.1 MEQ/L 4.1 MEQ/L Chloride Level 105 MEQ/L 104 MEQ/L Carbon Dioxide Level 22.5 MEQ/L 23.5 MEQ/L Anion Gap 10 MEQ/L 6 MEQ/L Estimat Glomerular Filtration Rate 42 ML/MIN 42 ML/MIN Lactate Dehydrogenase 869 U/L Imaging Last Impressions Chest CT 03/17/17 0000 Signed Impressions: Service Date/Time: Saturday, March 18, 2017 00:17 - CONCLUSION: 1. Widespread pulmonary metastatic disease as above. Syd Bartholomew MD Abdomen/Pelvis CT 03/16/17 0000 Signed Impressions: Service Date/Time: Thursday, March 16, 2017 21:59 - CONCLUSION: 1. Metastatic disease involving the visualized lung bases, liver, and inguinal lymph nodes. 2. Double J stent on the right is in good position. Despite this there is significant hydronephrosis. 3. Left-sided nephrostomy tube in good position. No hydronephrosis on this side. Yifan De La Rosa Jr., MD Lumbar Spine X-Ray 03/15/17 0000 Signed Impressions: Service Date/Time: March 15:15 - CONCLUSION: 1. Intact lumbar spine without evidence of acute process. 2. Right-sided intraureteral stent and left-sided nephrostomy tube. 3. No evidence of nephrolithiasis. Scott Winter MD Lumbar Spine MRI 03/15/17 0000 Signed Impressions: Service Date/Time: March 19:28 - CONCLUSION: 1. No acute abnormality. 2. Hydronephrosis involving the right kidney despite a double-J stent. 3. Left nephrostomy without hydronephrosis. Yifan De La Rosa Jr., MD Physical Exam GENERAL: awake and alert, not in respiratory distress. SKIN: Warm and dry. No generalized rash, no ecchymoses and no evidence of embolic lesions. HEAD: Atraumatic. Normocephalic. No temporal wasting, or tenderness. EYES: [place] conjunctiva. No petechia or hemorrhage. Pupils equal, round and reactive to light. Extraocular movements full and intact. No scleral icterus. No injection or drainage. EARS, NOSE AND THROAT: Nose without bleeding or purulent nasal discharge. Mucous membranes pink and moist. No oral lesions noted. NECK: Trachea midline. Supple and not tender, no meningeal signs CARDIOVASCULAR: Regular rate and rhythm. No murmurs, rubs or gallops heard RESPIRATORY: Clear to auscultation. Breath sounds equal bilaterally. No rales , wheezing or rhonchi ABDOMEN: Soft, non-tender, nondistended. Bowel sounds present and normoactive. No guarding. No rebound. No organomegaly. : Has L PCN, urine looks clear EXTREMITIES: No clubbing, cyanosis, or edema.No joint effusion, has good ROM. No calf tenderness. Well perfused and warm. NEUROLOGICAL: Awake and alert. Cranial nerves grossly intact. Motor grossly within normal limits. PSYCHIATRIC: Normal affect, calm and cooperative. LINE: No evidence of infection Assessment & Plan Remarks IMPRESSION UTI, has L nephrostomy, and has R hydronephrosis - ?pyonephrosis Hx cervical CA, S/P surgery, XRT and chemo Abdirashid hydronephrosis due to adhesions accdg to patien CKD Allergy to PCH, tolerates Keflex - face gets swollen Rash with Levaquion and Flagyl Metastatic lesions lung and liver, ?new primary RECOMMENDATION Continue IV Cefepime Repeat UA and C/S and decide on oral Abx Oncology workup of lung lesions Follow C/S Monitor progress Explained plan to the patient Jessy Jeong MD Mar 19, 2017 16:33
--- NOTE | 2017-03-19 18:23 | HHI.PR ---
Subjective Remarks Patient denies any major overnight events. Denies chest pain or shortness of breath. Stable vital signs Objective Vitals Vital Signs Date Time Temp Pulse Resp B/P (MAP) Pulse Ox O2 Delivery O2 Flow Rate FiO2 03/19/17 16:00 99.8 103 18 112/68 (83) 98 03/19/17 15:05 18 03/19/17 12:00 99.5 108 18 119/72 (88) 99 03/19/17 08:00 98.0 97 18 107/66 (80) 98 03/19/17 00:00 98.8 98 17 110/61 (77) 98 03/18/17 20:00 98.0 99 17 100/59 (73) 95 03/18/17 18:59 97 I/O 03/18/17 03/18/17 03/18/17 03/19/17 03/19/17 03/19/17 07:00 15:00 23:00 07:00 15:00 23:00 Intake Total 100 ml 250 ml 220 ml 700 ml Output Total 300 ml 20 ml 425 ml 485 ml 350 ml Balance -200 ml 230 ml -205 ml 215 ml -350 ml Intake Oral 120 ml 600 ml IV Total 100 ml 100 ml 100 ml Other 250 ml Output Urine Total 300 ml Drainage Total 300 ml 425 ml 185 ml 350 ml Estimated Blood Loss 20 ml # Voids 2 2 # Bowel Movements 1 0 Result Diagram: 03/19/17 0736 03/19/17 0736 Imaging Last Impressions Chest CT 03/17/17 0000 Signed Impressions: Service Date/Time: Saturday, March 18, 2017 00:17 - CONCLUSION: 1. Widespread pulmonary metastatic disease as above. Syd Bartholomew MD Abdomen/Pelvis CT 03/16/17 0000 Signed Impressions: Service Date/Time: Thursday, March 16, 2017 21:59 - CONCLUSION: 1. Metastatic disease involving the visualized lung bases, liver, and inguinal lymph nodes. 2. Double J stent on the right is in good position. Despite this there is significant hydronephrosis. 3. Left-sided nephrostomy tube in good position. No hydronephrosis on this side. Yifan De La Rosa Jr., MD Lumbar Spine X-Ray 03/15/17 0000 Signed Impressions: Service Date/Time: March 15:15 - CONCLUSION: 1. Intact lumbar spine without evidence of acute process. 2. Right-sided intraureteral stent and left-sided nephrostomy tube. 3. No evidence of nephrolithiasis. Scott Winter MD Lumbar Spine MRI 03/15/17 0000 Signed Impressions: Service Date/Time: March 19:28 - CONCLUSION: 1. No acute abnormality. 2. Hydronephrosis involving the right kidney despite a double-J stent. 3. Left nephrostomy without hydronephrosis. Yifan De La Rosa Jr., MD Objective Remarks AAOx3, nad Clear lungs BL S1S2 RRR, no MRG Abdomen soft, nt, nd extremities without edema and good peripheral pulses Medications and IVs Current Medications Medications (Trade) Dose Ordered Sig/Erendira Route Start Time Stop Time Status Last Admin (NS Flush) 2 ml UNSCH PRN IV FLUSH 03/15/17 15:00 03/19/17 15:46 (NS Flush) 2 ml BID IV FLUSH 03/15/17 21:00 03/19/17 08:42 (Tylenol) 650 mg Q4H PRN PO 03/15/17 15:00 (Zofran Inj) 4 mg Q6H PRN IVP 03/15/17 15:00 (Tylenol) 650 mg Q6H PRN PO 03/15/17 15:00 (Narcan Inj) 0.4 mg UNSCH PRN IV PUSH 03/15/17 15:00 (Julieta-Colace) 1 tab BID PO 03/15/17 21:00 03/19/17 08:41 (Miralax) 17 gm DAILY PO 03/15/17 16:00 03/19/17 08:42 (Compazine Supp) 25 mg Q12H PRN RECTAL 03/16/17 11:45 (Percocet 5-325 Mg) 1 tab Q6H PRN PO 03/16/17 11:45 03/16/17 13:24 (Percocet 10-325 Mg) 1 tab Q6H PRN PO 03/16/17 11:45 03/19/17 14:05 (Morphine Inj) 2 mg Q3H PRN IV PUSH 03/16/17 11:45 (Morphine Inj) 4 mg Q3H PRN IV PUSH 03/16/17 11:45 03/17/17 05:27 (Milk Of Magnesia Liq) 30 ml Q12H PRN PO 03/16/17 11:45 (Senokot) 17.2 mg Q12H PRN PO 03/16/17 11:45 (Dulcolax Supp) 10 mg DAILY PRN RECTAL 03/16/17 11:45 (Lactulose Liq) 30 ml DAILY PRN PO 03/16/17 11:45 Cefepime HCl 1000 mg/Sodium Chloride 100 ml @ 200 mls/hr Q12H IV 03/16/17 16:00 03/19/17 15:46 Lactated Ringer's 1,000 ml @ 30 mls/hr Q24H PRN IV 03/17/17 20:00 03/20/17 19:59 Sodium Chloride 500 ml @ 30 mls/hr [id number] PRN IV 03/17/17 20:00 03/20/17 19:59 (Lopressor) 25 mg OAKES MACHINE OPERATOR PRN PO 03/17/17 20:00 03/20/17 19:59 (Betadine 5% Antisepsis Kit) 1 applic OAKES MACHINE OPERATOR PRN EACH NARE 03/17/17 20:00 03/20/17 19:59 (Chlorhexidine 2% Cloth) 3 pack OAKES MACHINE OPERATOR PRN TOPICAL 03/17/17 20:00 03/20/17 19:59 (NovoLIN R INJ) See Protocol Table ... OAKES MACHINE OPERATOR PRN SQ 03/17/17 20:00 03/20/17 19:59 A/P Problem List: (1) Hydronephrosis, right ICD Code: N13.30 - Unspecified hydronephrosis (2) Pyelonephritis ICD Code: N12 - Tubulo-interstitial nephritis, not specified as acute or chronic (3) Low back pain ICD Code: M54.5 - Low back pain Status: Chronic (4) CKD (chronic kidney disease), stage III ICD Code: N18.3 - Chronic kidney disease, stage 3 (moderate) (5) Constipation ICD Code: K59.00 - Constipation, unspecified Status: Chronic (6) Anemia ICD Code: D64.9 - Anemia, unspecified Status: Chronic (7) DVT (deep venous thrombosis) ICD Code: I82.409 - Acute embolism and thrombosis of unspecified deep veins of unspecified lower extremity Status: Chronic (8) Metastatic disease ICD Code: C79.9 - Secondary malignant neoplasm of unspecified site Assessment and Plan (1) Hydronephrosis, right Plan: The patient is status post cystoscopy with right ureteral stent insertion and urinary tract infection. Neurology consulted. Appreciate recommendations. The patient has been scheduled for cystoscopy in a.m. Nothing by mouth at midnight. 03/18 the patient is status post cystourethroscopy with right ureteral stent exchange by Dr. Jimbo Rondon. Continue to monitor BUN/creatinine which has been trending up. 03/19 creatinine stable at 1.55. Continue to monitor BUN/creatinine. (2) Pyelonephritis Plan: History of admission. UA indicative of infection. She does have a left nephrostomy tube in place and was started on aztreonam in the emergency department for concern of pyelonephritis. Appreciate ID consultation recommendations. Patient initially started on aztreonam, which has been discontinued and the patient is currently on IV cefepime. Continue aspirin ID recommendations. Urine culture without growth in 48 hours. 03/19 ID recommends continuation of IV cefepime and repeat UA and cultures and sensitivities to decide on oral antibiotic. (3) Low back pain Plan: Ongoing for the past 3 weeks. Much improved. Continue pain control. Lumbar spine x-ray did not show any evidence of acute process. Right-sided intraureteral stent and left-sided nephrostomy tube. No evidence of nephrolithiasis. Lumbar spine MRI did not show any acute abnormality. Hydronephrosis involving the right kidney despite a double-J stent. Left nephrostomy without hydronephrosis. Pain possibly secondary to right hydronephrosis. (4) CKD (chronic kidney disease), stage III ICD Code: N18.3 - Chronic kidney disease, stage 3 (moderate) Plan: Upon review of medical records, the patient had a creatinine of 2.28 . Abdomen came down, however it slowly trending up. Continue to monitor BUN/creatinine. (5) Constipation Plan: Continue MiraLAX and Julieta-Colace. Seems to be stable now. (6) Anemia Plan: Seems to be chronic, however hemoglobin has been dropping down. Hemoglobin noted to be 9.5 on admission, slowly trending down and down to 8.0. I will check stool guaiac and iron studies. 03/18 iron studies consistent with anemia of chronic disease. Stool guaiac ordered and pending. (7) DVT (deep venous thrombosis) Plan: On coumadin. INR therapeutic. Hold Coumadin for possible biopsy. (8) Metastatic disease ICD Code: C79.9 - Secondary malignant neoplasm of unspecified site Plan: CT abdomen and pelvis as described above shows evidence of metastatic disease in a patient with recent history of cervical cancer status post chemotherapy and radiation therapy. Medical oncology consulted. The patient currently under workup for metastatic disease. Oncology recommends to continue to hold Coumadin and once INR falls below 1.6 then the patient should be started on IV heparin drip. Interventional radiology will be consulted by oncology for a CT-guided biopsy of the liver lesions. DVT prophylaxis: SCDs, awake chemoprophylaxis given slow hemoglobin down trend. Discharge Planning Continue to monitor in the medical floor. Problem Qualifiers (1) Low back pain: Qualified Codes: M54.5 - Low back pain; G89.29 - Other chronic pain (2) Constipation: Qualified Codes: K59.00 - Constipation, unspecified (3) Anemia: Qualified Codes: D64.9 - Anemia, unspecified Parish Jeong MD Mar 19, 2017 18:23
[2017-03-19 18:48] LABS: BACTERIA, URINE MANY /hpf; BLOOD, URINE MOD (NEG); COMMENT (UR) CULTURE INDICATED; CULTURE IF INDICATED CULTURE INDICATED; GLUCOSE,URINE NEG (NEG); KETONE, URINE NEG (NEG); NITRITE,URINE NEG (NEG); PH, URINE 6.5 (5.0-8.5); TRANSITIONAL EPI CELLS, URINE <1 /hpf; URINE COLOR YELLOW (YELLW/STRAW)
[2017-03-19 20:00] VITALS: BP 98/67; PULSE 91; RESP 18; TEMP 97.4; O2SAT 99
[2017-03-20] VITALS (8 sets, daily range): BP systolic 97–141; BP diastolic 58–79; PULSE 79–103; RESP 15–22; TEMP 97.8–98.8; O2SAT 95–100
[2017-03-20 03:05] LABS: AUTOMATED NEUTROPHIL # 4.6 TH/MM3 (1.8-7.7); BASOPHIL # 0.1 TH/MM3 (0-0.2); BASOPHIL % 0.7 % (0.0-2.0); EOSINOPHIL # 0.1 TH/MM3 (0-0.4); EOSINOPHIL % 1.7 % (0.0-4.0); HEMATOCRIT 23.3 % (35.0-46.0); HEMO FLAGS DIFF FINAL; LYMPH % 21.2 % (9.0-44.0); LYMPHOCYTE # 1.5 TH/MM3 (1.0-4.8); MEAN CELL VOLUME 89.2 FL (80.0-100.0); MEAN CORPUSCULAR HEMOGLOBIN 28.6 PG (27.0-34.0); MONO % 13.1 % (0.0-8.0); NEUT % 63.3 % (16.0-70.0); PLATELET COUNT 277 TH/MM3 (150-450); RED BLOOD COUNT 2.61 MIL/MM3 (4.00-5.30); RED CELL DISTRIBUTION WIDTH 16.4 % (11.6-17.2); WHITE BLOOD COUNT 7.3 TH/MM3 (4.0-11.0)
[2017-03-20 03:23] LABS: APTT (PATIENT) 44.3 SEC (24.3-30.1); PROTHROMBIN TIME - PATIENT 22.7 SEC (9.8-11.6)
[2017-03-20 03:27] LABS: BICARBONATE 24.1 MEQ/L (21.0-32.0); POTASSIUM 4.3 MEQ/L (3.5-5.1)
[2017-03-20] MEDS: CEFEPIME INJ 1,000 MG in SODIUM CHLORIDE 0.9% INJ 100 ML IV SCH ×2 (04:13→16:26)
[2017-03-20] MEDS: DOCUSATE SODIUM 50 MG/SENNA 8.6 MG TAB PO SCH ×2 (08:09→21:17)
[2017-03-20] MEDS: POLYETHYLENE GLYCOL 17 GM PKG PO SCH (08:09)
[2017-03-20] MEDS: SODIUM CHLORIDE 0.9% FLUSH 10 ML FLUSH IV FLUSH SCH ×2 (08:09→21:00)
[2017-03-20] MEDS ORDERED: PHYTONADIONE 5 MG TAB PO ONE (08:15)
[2017-03-20 08:41] LABS: APTT (PATIENT) 41.7 SEC (24.3-30.1)
--- NOTE | 2017-03-20 14:18 | PD.ONC.PN ---
Subjective Subjective Remarks Afebrile overnight. Waiting for biopsy. Denies pain. States she does not feel short of breath today. Objective Data Date Time Temp Pulse Resp B/P (MAP) Pulse Ox O2 Delivery O2 Flow Rate FiO2 03/20/17 08:00 98.7 103 18 110/65 (80) 99 03/20/17 00:00 97.8 94 18 97/58 (71) 98 03/19/17 21:35 17 03/19/17 20:00 97.4 91 18 98/67 (77) 99 03/19/17 16:00 99.8 103 18 112/68 (83) 98 03/20/17 03/20/17 03/20/17 07:00 15:00 23:00 Intake Total 100 ml Output Total 100 ml 500 ml Balance 0 ml -500 ml Result Diagram: 03/20/17 0245 03/20/17 0245 Laboratory Results Laboratory Tests Test 03/19/17 18:20 03/20/17 02:45 03/20/17 08:04 Urine Color YELLOW Urine Turbidity HAZY Urine pH 6.5 Urine Specific [place] 1.009 Urine Protein 30 mg/dL Urine Glucose (UA) NEG mg/dL Urine Ketones NEG mg/dL Urine Occult Blood MOD Urine Nitrite NEG Urine Bilirubin NEG Urine Urobilinogen LESS THAN 2.0 MG/DL Urine Leukocyte Esterase LARGE Urine RBC 109 /hpf Urine WBC /hpf Urine Transitional Epithelial Cells <1 /hpf Urine Amorphous Sediment RARE Urine Bacteria MANY /hpf Microscopic Urinalysis Comment CULTURE INDICATED White Blood Count 7.3 TH/MM3 Red Blood Count 2.61 MIL/MM3 Hemoglobin 7.5 GM/DL Hematocrit 23.3 % Mean Corpuscular Volume 89.2 FL Mean Corpuscular Hemoglobin 28.6 PG Mean Corpuscular Hemoglobin Concent 32.0 % Red Cell Distribution Width 16.4 % Platelet Count 277 TH/MM3 Mean Platelet Volume 7.5 FL Neutrophils (%) (Auto) 63.3 % Lymphocytes (%) (Auto) 21.2 % Monocytes (%) (Auto) 13.1 % Eosinophils (%) (Auto) 1.7 % Basophils (%) (Auto) 0.7 % Neutrophils # (Auto) 4.6 TH/MM3 Lymphocytes # (Auto) 1.5 TH/MM3 Monocytes # (Auto) 1.0 TH/MM3 Eosinophils # (Auto) 0.1 TH/MM3 Basophils # (Auto) 0.1 TH/MM3 CBC Comment DIFF FINAL Differential Comment Prothrombin Time 22.7 SEC Prothromb Time International Ratio 2.0 RATIO Activated Partial Thromboplast Time 44.3 SEC 41.7 SEC Blood Urea Nitrogen 24 MG/DL Creatinine 1.49 MG/DL Random Glucose 94 MG/DL Calcium Level 8.9 MG/DL Sodium Level 138 MEQ/L Potassium Level 4.3 MEQ/L Chloride Level 107 MEQ/L Carbon Dioxide Level 24.1 MEQ/L Anion Gap 7 MEQ/L Estimat Glomerular Filtration Rate 44 ML/MIN Culture Results Microbiology Date/Time Source Procedure Growth Status 03/19/17 18:20 Urine Clean Catch Urine Culture Pending Received Administered Medications Medications (Trade) Dose Ordered Sig/Erendira Route PRN Reason Start Time Stop Time Status Last Admin Dose Admin Sodium Chloride (NS Flush) 2 ml UNSCH PRN IV FLUSH FLUSH AFTER USING IV ACCESS 03/15/17 15:00 03/19/17 15:46 Sodium Chloride (NS Flush) 2 ml BID IV FLUSH 03/15/17 21:00 03/20/17 08:09 Senna/Docusate Sodium (Julieta-Colace) 1 tab BID PO 03/15/17 21:00 03/20/17 08:09 Polyethylene Glycol (Miralax) 17 gm DAILY PO 03/15/17 16:00 03/20/17 08:09 Oxycodone/ Acetaminophen (Percocet 5-325 Mg) 1 tab Q6H PRN PO PAIN SCALE 3 TO 5 03/16/17 11:45 03/16/17 13:24 Oxycodone/ Acetaminophen (Percocet 10-325 Mg) 1 tab Q6H PRN PO PAIN SCALE 6 TO 10 03/16/17 11:45 03/19/17 20:35 Morphine Sulfate (Morphine Inj) 4 mg Q3H PRN IV PUSH Pain 6-10;if unable to take PO 03/16/17 11:45 03/17/17 05:27 Cefepime HCl 1000 mg/Sodium Chloride 100 ml @ 200 mls/hr Q12H IV 03/16/17 16:00 03/20/17 04:13 Objective Remarks GENERAL: Middle aged female sitting up in bed in [facility]. SKIN: Warm and dry. HEAD: Normocephalic. EYES: No injection or drainage. NECK: Supple, trachea midline. CARDIOVASCULAR: Regular rate and rhythm. RESPIRATORY: Breath sounds equal bilaterally. No accessory muscle use. GASTROINTESTINAL: Abdomen soft, non-tender, nondistended. EXTREMITIES: No cyanosis, NEUROLOGICAL: awake and alert, normal speech. Assessment/Plan Problem List: (1) Metastatic disease ICD Codes: C79.9 - Secondary malignant neoplasm of unspecified site Plan: --Bilateral pulmonary masses with multiple hepatic lesions with a history of cervical cancer. --These lesions are highly suspicious for metastatic disease. --Metastatic cervical cancer versus another primary malignancy is suspected. patient will need to have a biopsy to confirm diagnosis (2) DVT (deep venous thrombosis) ICD Codes: I82.409 - Acute embolism and thrombosis of unspecified deep veins of unspecified lower extremity Status: Chronic Plan: --currently on heparin gtt. (3) Normocytic anemia ICD Codes: D64.9 - Anemia, unspecified Plan: -- Normocytic anemia with a hemoglobin of 8.5. --iron studies more consistent with anemia of chronic disease--ferritin is 574 --Obtain a stool Hemoccult, total bilirubin level is normal at 0.4. --does not appear to be any underlying hemolysis. await LDH and haptoglobin. (4) Renal insufficiency ICD Codes: N28.9 - Disorder of kidney and ureter, unspecified Plan: --Acute on chronic renal failure with right-sided hydronephrosis. --status post stent exchange. (5) UTI (urinary tract infection) ICD Codes: N39.0 - Urinary tract infection, site not specified Plan: --UA showed leukocyte esterase large with abundant WBCs and rare urine bacteria. --urine culture no growth --currently on cefepime. Assessment This is a 51-year-old female who has a past medical history of cervical cancer diagnosed in 2005. She underwent hysterectomy as well as chemotherapy and radiation treatments. She now presents to the emergency department with right flank pain. She was found to have hydronephrosis on the right side and she has undergone stent exchange. On abdominal imaging she was found to have hepatic mets and additional imaging was obtained including CT of the chest which revealed bilateral pulmonary masses. History of DVTs. CKD. Left-sided nephrostomy tube placement. Tonsillectomy. Plan 1. await biopsy through invasive radiology 2. give Vitamin K 5mg PO x 1 for INR 2.0 today 3. continue heparin gtt. will hold prior to biopsy 4. obtain type and screen, may need to give blood transfusion if hgb drops further Attending Statement The exam, history, and the medical decision-making described in the above note were completed with the assistance of the mid-level provider. I reviewed and agree with the findings presented. I attest that I had a [id number] encounter with the patient on the same day, and personally performed and documented my assessment and findings in the medical record INR 2 give vitamin K heparin GTT anemia worsening symptomatic --low BP, weak , tachycardic on exam transfuse 1 unit of pRBC check hemolysis labs daily cbc biopsy attempt in am d/w rn o/n events reviewed Debra Newell Mar 20, 2017 14:18 Coleman Hester MD Mar 20, 2017 23:34
--- NOTE | 2017-03-20 14:20 | HHI.PR ---
Subjective Remarks bp on the lower side overnight, now better denies cp/sob. c/o some lowe back pain Objective Vitals Vital Signs Date Time Temp Pulse Resp B/P (MAP) Pulse Ox O2 Delivery O2 Flow Rate FiO2 03/20/17 08:00 98.7 103 18 110/65 (80) 99 03/20/17 00:00 97.8 94 18 97/58 (71) 98 03/19/17 21:35 17 03/19/17 20:00 97.4 91 18 98/67 (77) 99 03/19/17 16:00 99.8 103 18 112/68 (83) 98 I/O 03/19/17 03/19/17 03/19/17 03/20/17 03/20/17 03/20/17 07:00 15:00 23:00 07:00 15:00 23:00 Intake Total 700 ml 100 ml Output Total 485 ml 350 ml 250 ml 100 ml 500 ml Balance 215 ml -350 ml -250 ml 0 ml -500 ml Intake Oral 600 ml IV Total 100 ml 100 ml Output Urine Total 300 ml 100 ml 100 ml Drainage Total 185 ml 350 ml 250 ml 400 ml Result Diagram: 03/20/17 0245 03/20/17 0245 Imaging Last Impressions Chest CT 03/17/17 0000 Signed Impressions: Service Date/Time: Saturday, March 18, 2017 00:17 - CONCLUSION: 1. Widespread pulmonary metastatic disease as above. Syd Bartholomew MD Abdomen/Pelvis CT 03/16/17 0000 Signed Impressions: Service Date/Time: Thursday, March 16, 2017 21:59 - CONCLUSION: 1. Metastatic disease involving the visualized lung bases, liver, and inguinal lymph nodes. 2. Double J stent on the right is in good position. Despite this there is significant hydronephrosis. 3. Left-sided nephrostomy tube in good position. No hydronephrosis on this side. Yifan De La Rosa Jr., MD Lumbar Spine X-Ray 03/15/17 0000 Signed Impressions: Service Date/Time: March 15:15 - CONCLUSION: 1. Intact lumbar spine without evidence of acute process. 2. Right-sided intraureteral stent and left-sided nephrostomy tube. 3. No evidence of nephrolithiasis. Scott Winter MD Lumbar Spine MRI 03/15/17 0000 Signed Impressions: Service Date/Time: March 19:28 - CONCLUSION: 1. No acute abnormality. 2. Hydronephrosis involving the right kidney despite a double-J stent. 3. Left nephrostomy without hydronephrosis. Yifan De La Rosa Jr., MD Objective Remarks AAOx3, nad Clear lungs BL S1S2 RRR, no MRG Abdomen soft, nt, nd extremities without edema and good peripheral pulses Procedures Status post cystoscopy and right ureteral stent exchange Medications and IVs Current Medications Medications (Trade) Dose Ordered Sig/Erendira Route Start Time Stop Time Status Last Admin (NS Flush) 2 ml UNSCH PRN IV FLUSH 03/15/17 15:00 03/19/17 15:46 (NS Flush) 2 ml BID IV FLUSH 03/15/17 21:00 03/20/17 08:09 (Tylenol) 650 mg Q4H PRN PO 03/15/17 15:00 (Zofran Inj) 4 mg Q6H PRN IVP 03/15/17 15:00 (Tylenol) 650 mg Q6H PRN PO 03/15/17 15:00 (Narcan Inj) 0.4 mg UNSCH PRN IV PUSH 03/15/17 15:00 (Julieta-Colace) 1 tab BID PO 03/15/17 21:00 03/20/17 08:09 (Miralax) 17 gm DAILY PO 03/15/17 16:00 03/20/17 08:09 (Compazine Supp) 25 mg Q12H PRN RECTAL 03/16/17 11:45 (Percocet 5-325 Mg) 1 tab Q6H PRN PO 03/16/17 11:45 03/16/17 13:24 (Percocet 10-325 Mg) 1 tab Q6H PRN PO 03/16/17 11:45 03/19/17 20:35 (Morphine Inj) 2 mg Q3H PRN IV PUSH 03/16/17 11:45 (Morphine Inj) 4 mg Q3H PRN IV PUSH 03/16/17 11:45 03/17/17 05:27 (Milk Of Magnesia Liq) 30 ml Q12H PRN PO 03/16/17 11:45 (Senokot) 17.2 mg Q12H PRN PO 03/16/17 11:45 (Dulcolax Supp) 10 mg DAILY PRN RECTAL 03/16/17 11:45 (Lactulose Liq) 30 ml DAILY PRN PO 03/16/17 11:45 Cefepime HCl 1000 mg/Sodium Chloride 100 ml @ 200 mls/hr Q12H IV 03/16/17 16:00 03/20/17 04:13 Lactated Ringer's 1,000 ml @ 30 mls/hr Q24H PRN IV 03/17/17 20:00 03/20/17 19:59 Sodium Chloride 500 ml @ 30 mls/hr [id number] PRN IV 03/17/17 20:00 03/20/17 19:59 (Lopressor) 25 mg [employer] PRN PO 03/17/17 20:00 03/20/17 19:59 (Betadine 5% Antisepsis Kit) 1 applic [employer] PRN EACH NARE 03/17/17 20:00 03/20/17 19:59 (Chlorhexidine 2% Cloth) 3 pack [employer] PRN TOPICAL 03/17/17 20:00 03/20/17 19:59 (NovoLIN R INJ) See Protocol Table ... [employer] PRN SQ 03/17/17 20:00 03/20/17 19:59 Heparin Sodium/ Dextrose 250 ml @ 12 mls/hr TITRATE PRN IV 03/20/17 00:00 A/P Problem List: (1) Hydronephrosis, right ICD Code: N13.30 - Unspecified hydronephrosis (2) Pyelonephritis ICD Code: N12 - Tubulo-interstitial nephritis, not specified as acute or chronic (3) Low back pain ICD Code: M54.5 - Low back pain Status: Chronic (4) CKD (chronic kidney disease), stage III ICD Code: N18.3 - Chronic kidney disease, stage 3 (moderate) (5) Constipation ICD Code: K59.00 - Constipation, unspecified Status: Chronic (6) Anemia ICD Code: D64.9 - Anemia, unspecified Status: Chronic (7) DVT (deep venous thrombosis) ICD Code: I82.409 - Acute embolism and thrombosis of unspecified deep veins of unspecified lower extremity Status: Chronic (8) Metastatic disease ICD Code: C79.9 - Secondary malignant neoplasm of unspecified site Assessment and Plan (1) Hydronephrosis, right Plan: The patient is status post cystoscopy with right ureteral stent insertion and urinary tract infection. Neurology consulted. Appreciate recommendations. The patient has been scheduled for cystoscopy in a.m. Nothing by mouth at midnight. 03/18 the patient is status post cystourethroscopy with right ureteral stent exchange by Dr. Jimbo Rondon. Continue to monitor BUN/creatinine which has been trending up. 03/19 creatinine stable at 1.55. Continue to monitor BUN/creatinine. 03/20 Creatinine trending down - Creatinine down to 1.4. (2) Pyelonephritis Plan: History of admission. UA indicative of infection. She does have a left nephrostomy tube in place and was started on aztreonam in the emergency department for concern of pyelonephritis. Appreciate ID consultation recommendations. Patient initially started on aztreonam, which has been discontinued and the patient is currently on IV cefepime. Continue aspirin ID recommendations. Urine culture without growth in 48 hours. 03/19 ID recommends continuation of IV cefepime and repeat UA and cultures and sensitivities to decide on oral antibiotic. (3) Low back pain Plan: Ongoing for the past 3 weeks. Much improved. Continue pain control. Lumbar spine x-ray did not show any evidence of acute process. Right-sided intraureteral stent and left-sided nephrostomy tube. No evidence of nephrolithiasis. Lumbar spine MRI did not show any acute abnormality. Hydronephrosis involving the right kidney despite a double-J stent. Left nephrostomy without hydronephrosis. Pain possibly secondary to right hydronephrosis. 03/20 Pain improving. Continue pain control. (4) CKD (chronic kidney disease), stage III Plan: Upon review of medical records, the patient had a creatinine of 2.28 . Abdomen came down, however it slowly trending up. Continue to monitor BUN/creatinine. 03/20 Creatinine trending down. (5) Constipation Plan: Continue MiraLAX and Julieta-Colace. Seems to be stable now. (6) Anemia Plan: Seems to be chronic, however hemoglobin has been dropping down. Hemoglobin noted to be 9.5 on admission, slowly trending down and down to 8.0. I will check stool guaiac and iron studies. 11/14 iron studies consistent with anemia of chronic disease. Stool guaiac ordered and pending. Hemoglobin tranding down and 7.5 today. Transfuse if hemoglobin < 7. (7) DVT (deep venous thrombosis) Plan: On coumadin. INR therapeutic. Hold Coumadin for possible biopsy. (8) Metastatic disease ICD Code: C79.9 - Secondary malignant neoplasm of unspecified site Plan: CT abdomen and pelvis as described above shows evidence of metastatic disease in a patient with recent history of cervical cancer status post chemotherapy and radiation therapy. Medical oncology consulted. The patient currently under workup for metastatic disease. Oncology recommends to continue to hold Coumadin and once INR falls below 1.6 then the patient should be started on IV heparin drip. Interventional radiology will be consulted by oncology for a CT-guided biopsy of the liver lesions. 03/20 INR still 2.0, patient given Vitamin K by oncology and started on heparin drip. DVT prophylaxis: SCDs, awake chemoprophylaxis given slow hemoglobin down trend. Discharge Planning Continue to monitor in the medical floor. Problem Qualifiers (1) Low back pain: Qualified Codes: M54.5 - Low back pain; G89.29 - Other chronic pain (2) Constipation: Qualified Codes: K59.00 - Constipation, unspecified (3) Anemia: Qualified Codes: D64.9 - Anemia, unspecified Parish Jeong MD Mar 20, 2017 14:20
[2017-03-20] MEDS: oxyCODONE/ACETAMINOPHEN 5 MG/325 MG TAB PO PRN (16:39)
[2017-03-20 17:04] LABS: APTT (PATIENT) 41.3 SEC (24.3-30.1)
[2017-03-20] MEDS: HEPARIN-D5W 25,000 U/250 ML 250 ML IV PRN (18:15)
[2017-03-20] MEDS: oxyCODONE/ACETAMINOPHEN 10 MG/325 MG TAB PO PRN (21:30)
[2017-03-21] VITALS (10 sets, daily range): BP systolic 110–138; BP diastolic 68–85; PULSE 71–98; RESP 15–18; TEMP 98.2–98.7; O2SAT 98–100
[2017-03-21] MEDS ORDERED: diphenhydrAMINE HCL 25 MG CAP PO PRN (00:15)
[2017-03-21] MEDS ORDERED: ACETAMINOPHEN 325 MG TAB PO PRN (00:15)
[2017-03-21] MEDS: CEFEPIME INJ 1,000 MG in SODIUM CHLORIDE 0.9% INJ 100 ML IV SCH (03:11)
[2017-03-21 03:46] LABS: APTT (PATIENT) 101.5 SEC (24.3-30.1)
[2017-03-21 06:23] LABS: APTT (PATIENT) 64.3 SEC (24.3-30.1); INTERNATIONAL NORMALIZED RATIO 1.4 RATIO; PROTHROMBIN TIME - PATIENT 15.8 SEC (9.8-11.6)
[2017-03-21 06:40] LABS: BICARBONATE 23.8 MEQ/L (21.0-32.0)
--- NOTE | 2017-03-21 07:58 | PD.ONC.PN ---
Subjective Subjective Remarks plans for biopsy today INR is now 1.4 on heparin GTT appears comfortable Objective Data Date Time Temp Pulse Resp B/P (MAP) Pulse Ox O2 Delivery O2 Flow Rate FiO2 03/21/17 04:19 98.4 77 15 125/78 98 03/21/17 04:18 71 03/21/17 04:12 17 03/21/17 03:57 98.4 87 17 118/76 99 03/21/17 00:18 92 03/20/17 23:59 98.2 90 17 118/76 (90) 95 03/20/17 22:30 18 03/20/17 21:15 98.7 88 15 105/64 (78) 100 03/20/17 20:01 92 03/20/17 16:00 98.8 100 18 111/60 (77) 100 03/20/17 08:00 98.7 103 18 110/65 (80) 99 03/21/17 03/21/17 03/21/17 06:59 14:59 22:59 Intake Total 450 ml Balance 450 ml Result Diagram: 03/20/17 0245 03/21/17 0545 Laboratory Results Laboratory Tests Test 03/20/17 08:04 03/20/17 15:59 03/20/17 18:11 03/21/17 02:03 Activated Partial Thromboplast Time 41.7 SEC 41.3 SEC 101.5 SEC Haptoglobin 419 MG/DL Lactate Dehydrogenase 795 U/L Test 03/21/17 05:45 Prothrombin Time 15.8 SEC Prothromb Time International Ratio 1.4 RATIO Activated Partial Thromboplast Time 64.3 SEC Blood Urea Nitrogen 19 MG/DL Creatinine 1.37 MG/DL Random Glucose 91 MG/DL Calcium Level 9.2 MG/DL Lactate Dehydrogenase 830 U/L Sodium Level 137 MEQ/L Potassium Level 4.0 MEQ/L Chloride Level 105 MEQ/L Carbon Dioxide Level 23.8 MEQ/L Anion Gap 8 MEQ/L Estimat Glomerular Filtration Rate 49 ML/MIN Culture Results Microbiology Date/Time Source Procedure Growth Status 03/19/17 18:20 Urine Clean Catch Urine Culture - Preliminary No growth. Resulted Administered Medications Medications (Trade) Dose Ordered Sig/Erendira Route PRN Reason Start Time Stop Time Status Last Admin Dose Admin Sodium Chloride (NS Flush) 2 ml UNSCH PRN IV FLUSH FLUSH AFTER USING IV ACCESS 03/15/17 15:00 03/19/17 15:46 Sodium Chloride (NS Flush) 2 ml BID IV FLUSH 03/15/17 21:00 03/20/17 08:09 Senna/Docusate Sodium (Julieta-Colace) 1 tab BID PO 03/15/17 21:00 03/20/17 21:17 Polyethylene Glycol (Miralax) 17 gm DAILY PO 03/15/17 16:00 03/20/17 08:09 Oxycodone/ Acetaminophen (Percocet 5-325 Mg) 1 tab Q6H PRN PO PAIN SCALE 3 TO 5 03/16/17 11:45 03/20/17 16:39 Oxycodone/ Acetaminophen (Percocet 10-325 Mg) 1 tab Q6H PRN PO PAIN SCALE 6 TO 10 03/16/17 11:45 03/20/17 21:30 Morphine Sulfate (Morphine Inj) 4 mg Q3H PRN IV PUSH Pain 6-10;if unable to take PO 03/16/17 11:45 03/17/17 05:27 Cefepime HCl 1000 mg/Sodium Chloride 100 ml @ 200 mls/hr Q12H IV 03/16/17 16:00 03/21/17 03:11 Heparin Sodium/ Dextrose 250 ml @ 12 mls/hr TITRATE PRN IV Coagulation Management 03/20/17 00:00 03/20/17 18:15 Acetaminophen (Tylenol) 650 mg UNSCH X1 PRN PO 30 MIN PRIOR TO TRANSFUSION 03/21/17 00:15 03/22/17 00:14 03/21/17 03:12 Diphenhydramine HCl (Benadryl) 25 mg UNSCH X1 PRN PO 30 MIN PRIOR TO TRANSFUSION 03/21/17 00:15 03/22/17 00:14 03/21/17 03:12 Objective Remarks GENERAL: nad SKIN: Warm and dry. NECK: Supple, trachea midline. No JVD or lymphadenopathy. LYMPHATIC: No adenopathy. CARDIOVASCULAR: Regular rate and rhythm without murmurs. RESPIRATORY: Breath sounds equal bilaterally. No accessory muscle use. GASTROINTESTINAL: Abdomen soft, non-tender, nondistended. EXTREMITIES: No cyanosis, or edema. Assessment/Plan Problem List: (1) Metastatic disease ICD Codes: C79.9 - Secondary malignant neoplasm of unspecified site Plan: --Bilateral pulmonary masses with multiple hepatic lesions with a history of cervical cancer. --These lesions are highly suspicious for metastatic disease. --Metastatic cervical cancer versus another primary malignancy is suspected. patient will need to have a biopsy to confirm diagnosis (2) DVT (deep venous thrombosis) ICD Codes: I82.409 - Acute embolism and thrombosis of unspecified deep veins of unspecified lower extremity Status: Chronic Plan: --currently on heparin gtt. (3) Normocytic anemia ICD Codes: D64.9 - Anemia, unspecified Plan: -- Normocytic anemia with a hemoglobin of 8.5. --iron studies more consistent with anemia of chronic disease--ferritin is 574 --Obtain a stool Hemoccult, total bilirubin level is normal at 0.4. --does not appear to be any underlying hemolysis. await LDH and haptoglobin. (4) Renal insufficiency ICD Codes: N28.9 - Disorder of kidney and ureter, unspecified Plan: --Acute on chronic renal failure with right-sided hydronephrosis. --status post stent exchange. (5) UTI (urinary tract infection) ICD Codes: N39.0 - Urinary tract infection, site not specified Plan: --UA showed leukocyte esterase large with abundant WBCs and rare urine bacteria. --urine culture no growth --currently on cefepime. Assessment This is a 51-year-old female who has a past medical history of cervical cancer diagnosed in 2005. She underwent hysterectomy as well as chemotherapy and radiation treatments. She now presents to the emergency department with right flank pain. She was found to have hydronephrosis on the right side and she has undergone stent exchange. On abdominal imaging she was found to have hepatic mets and additional imaging was obtained including CT of the chest which revealed bilateral pulmonary masses. History of DVTs. CKD. Left-sided nephrostomy tube placement. Tonsillectomy. Plan 1. Metastatic Lesions: biopsy today by IR 2. DVT: continue Heparin --will need to be on heparin- stop 3 hours before biopsy 3. Acute Anemia: received 1 unit of prbc. check stool heme-occult. no evidence of hemolysis 4. Acute renal failure: creatinine improving d/w rn o/n events reviewed Coleman Hester MD Mar 21, 2017 07:58
[2017-03-21] MEDS: SODIUM CHLORIDE 0.9% FLUSH 10 ML FLUSH IV FLUSH SCH ×2 (08:41→20:58)
[2017-03-21] MEDS: POLYETHYLENE GLYCOL 17 GM PKG PO SCH (08:41)
[2017-03-21] MEDS: DOCUSATE SODIUM 50 MG/SENNA 8.6 MG TAB PO SCH ×2 (08:42→20:57)
[2017-03-21] MEDS: oxyCODONE/ACETAMINOPHEN 10 MG/325 MG TAB PO PRN ×3 (08:43→20:57)
--- NOTE | 2017-03-21 12:31 | HHI.IDPN ---
Subjective Subjective Remarks Patient is a 51-year-old female, with history of cervical cancer, had undergone surgical treatment, as well as radiation, and recently completed chemotherapy last month. This was all done in [place], and she recently moved down here in [place] to stay with her daughter. She apparently started having problem with pain in her low back while she was up in [place]. She thought it was related to a previous accident, and the pain started getting worse. She denies any urinary complaints. She has not had any problem with her left nephrostomy. No nausea or vomiting. No dysuria. She has been constipated. No fever or chills. Patient apparently when she had recurrent cervical cancer last year, was found to have significant adhesions causing bilateral hydronephrosis. She had placement of a left nephrostomy, and it has been scheduled to get changed every 3 months. The last time it was change was about a month ago. She also has a stent in her right ureter. When she presented here, she is afebrile. Her WBC is normal. Her creatinine is slightly elevated, and according to the patient she has chronic renal insufficiency. Her urinalysis showed mild pyuria with 16 WBC. Looks like it was a clean catch urine. Patient had an MRI of her lumbar spine and it did not show any lumbar spine abnormality. It did show the presence of the nephrostomy tube on the left kidney, but no hydronephrosis. There is right hydronephrosis despite the presence of a stent. Infectious disease consultation has been requested to evaluate the patient with UTI and has complicated urologic problem Notes reviewed Temps ok No complaints Going for lung biopsy today, on NPO Repeat UC negative Had exchange of stent 03/18 Imaging studies showing lesions in liver and lung Antibiotics Cefepime Current Medications Medications (Trade) Dose Ordered Sig/Erendira Route Start Time Stop Time Status Last Admin (NS Flush) 2 ml UNSCH PRN IV FLUSH 03/15/17 15:00 03/19/17 15:46 (NS Flush) 2 ml BID IV FLUSH 03/15/17 21:00 03/20/17 08:09 (Tylenol) 650 mg Q4H PRN PO 03/15/17 15:00 (Zofran Inj) 4 mg Q6H PRN IVP 03/15/17 15:00 (Tylenol) 650 mg Q6H PRN PO 03/15/17 15:00 (Narcan Inj) 0.4 mg UNSCH PRN IV PUSH 03/15/17 15:00 (Julieta-Colace) 1 tab BID PO 03/15/17 21:00 03/21/17 08:42 (Miralax) 17 gm DAILY PO 03/15/17 16:00 03/20/17 08:09 (Compazine Supp) 25 mg Q12H PRN RECTAL 03/16/17 11:45 (Percocet 5-325 Mg) 1 tab Q6H PRN PO 03/16/17 11:45 03/20/17 16:39 (Percocet 10-325 Mg) 1 tab Q6H PRN PO 03/16/17 11:45 03/21/17 08:43 (Morphine Inj) 2 mg Q3H PRN IV PUSH 03/16/17 11:45 (Morphine Inj) 4 mg Q3H PRN IV PUSH 03/16/17 11:45 03/17/17 05:27 (Milk Of Magnesia Liq) 30 ml Q12H PRN PO 03/16/17 11:45 (Senokot) 17.2 mg Q12H PRN PO 03/16/17 11:45 (Dulcolax Supp) 10 mg DAILY PRN RECTAL 03/16/17 11:45 (Lactulose Liq) 30 ml DAILY PRN PO 03/16/17 11:45 Cefepime HCl 1000 mg/Sodium Chloride 100 ml @ 200 mls/hr Q12H IV 03/16/17 16:00 03/21/17 03:11 Heparin Sodium/ Dextrose 250 ml @ 12 mls/hr TITRATE PRN IV 03/20/17 00:00 03/20/17 18:15 (Tylenol) 650 mg UNSCH X1 PRN PO 03/21/17 00:15 03/22/17 00:14 03/21/17 03:12 (Benadryl) 25 mg UNSCH X1 PRN PO 03/21/17 00:15 03/22/17 00:14 03/21/17 03:12 Past Medical History Cervical cancer s/p hysterectomy, chemotherapy and radiation DVT CKD Past Surgical History Tonsillectomy Hysterectomy Left nephrostomy Ureteral stent on the right Hernia repair Left rotator cuff repair Allergies: Coded Allergies: levofloxacin (Unverified Allergy, Unknown, 03/15/17) metronidazole (Unverified Allergy, Unknown, 03/15/17) penicillin G (Unverified Allergy, Unknown, 03/15/17) Objective . Vital Signs Date Time Temp Pulse Resp B/P (MAP) Pulse Ox O2 Delivery O2 Flow Rate FiO2 03/21/17 08:46 98.4 83 18 136/84 (101) 99 03/21/17 04:19 98.4 77 15 125/78 98 03/21/17 04:18 71 03/21/17 04:12 17 03/21/17 03:57 98.4 87 17 118/76 99 03/21/17 00:18 92 03/20/17 23:59 98.2 90 17 118/76 (90) 95 03/20/17 22:30 18 03/20/17 21:15 98.7 88 15 105/64 (78) 100 03/20/17 20:01 92 03/20/17 16:00 98.8 100 18 111/60 (77) 100 . Laboratory Tests Test 03/20/17 02:45 03/20/17 18:11 White Blood Count 7.3 TH/MM3 Red Blood Count 2.61 MIL/MM3 Hemoglobin 7.5 GM/DL Hematocrit 23.3 % Mean Corpuscular Volume 89.2 FL Mean Corpuscular Hemoglobin 28.6 PG Mean Corpuscular Hemoglobin Concent 32.0 % Red Cell Distribution Width 16.4 % Platelet Count 277 TH/MM3 Mean Platelet Volume 7.5 FL Neutrophils (%) (Auto) 63.3 % Lymphocytes (%) (Auto) 21.2 % Monocytes (%) (Auto) 13.1 % Eosinophils (%) (Auto) 1.7 % Basophils (%) (Auto) 0.7 % Neutrophils # (Auto) 4.6 TH/MM3 Lymphocytes # (Auto) 1.5 TH/MM3 Monocytes # (Auto) 1.0 TH/MM3 Eosinophils # (Auto) 0.1 TH/MM3 Basophils # (Auto) 0.1 TH/MM3 CBC Comment DIFF FINAL Differential Comment Haptoglobin 419 MG/DL Laboratory Tests Test 03/20/17 02:45 03/20/17 18:11 03/21/17 05:45 Blood Urea Nitrogen 24 MG/DL 19 MG/DL Creatinine 1.49 MG/DL 1.37 MG/DL Random Glucose 94 MG/DL 91 MG/DL Calcium Level 8.9 MG/DL 9.2 MG/DL Sodium Level 138 MEQ/L 137 MEQ/L Potassium Level 4.3 MEQ/L 4.0 MEQ/L Chloride Level 107 MEQ/L 105 MEQ/L Carbon Dioxide Level 24.1 MEQ/L 23.8 MEQ/L Anion Gap 7 MEQ/L 8 MEQ/L Estimat Glomerular Filtration Rate 44 ML/MIN 49 ML/MIN Lactate Dehydrogenase 795 U/L 830 U/L Microbiology Date/Time Source Procedure Growth Status 03/19/17 18:20 Urine Clean Catch Urine Culture - Final <10,000 CFU/ML GRAM POSITIVE OMAR Complete Imaging Last Impressions Chest CT 03/17/17 0000 Signed Impressions: Service Date/Time: Saturday, March 18, 2017 00:17 - CONCLUSION: 1. Widespread pulmonary metastatic disease as above. Syd Bartholomew MD Abdomen/Pelvis CT 03/16/17 0000 Signed Impressions: Service Date/Time: Thursday, March 16, 2017 21:59 - CONCLUSION: 1. Metastatic disease involving the visualized lung bases, liver, and inguinal lymph nodes. 2. Double J stent on the right is in good position. Despite this there is significant hydronephrosis. 3. Left-sided nephrostomy tube in good position. No hydronephrosis on this side. Yifan De La Rosa Jr., MD Lumbar Spine X-Ray 03/15/17 0000 Signed Impressions: Service Date/Time: March 15:15 - CONCLUSION: 1. Intact lumbar spine without evidence of acute process. 2. Right-sided intraureteral stent and left-sided nephrostomy tube. 3. No evidence of nephrolithiasis. Scott Winter MD Lumbar Spine MRI 03/15/17 0000 Signed Impressions: Service Date/Time: March 19:28 - CONCLUSION: 1. No acute abnormality. 2. Hydronephrosis involving the right kidney despite a double-J stent. 3. Left nephrostomy without hydronephrosis. Yifan De La Rosa Jr., MD Physical Exam GENERAL: awake and alert, not in respiratory distress. SKIN: Warm and dry. No generalized rash. HEAD: Atraumatic. Normocephalic. No temporal wasting, or tenderness. EYES: [place] conjunctiva. No petechia or hemorrhage. Pupils equal, round and reactive to light. Extraocular movements full and intact. No scleral icterus. No injection or drainage. EARS, NOSE AND THROAT: Nose without bleeding or purulent nasal discharge. Mucous membranes pink and moist. No oral lesions noted. NECK: Trachea midline. Supple and not tender, no meningeal signs CARDIOVASCULAR: Regular rate and rhythm. No murmurs, rubs or gallops heard RESPIRATORY: Clear to auscultation. Breath sounds equal bilaterally. No rales , wheezing or rhonchi ABDOMEN: Soft, non-tender, nondistended. Bowel sounds present and normoactive. No guarding. No rebound. No organomegaly. : Has L PCN, urine looks clear EXTREMITIES: No clubbing, cyanosis, or edema.No joint effusion, has good ROM. No calf tenderness. Well perfused and warm. NEUROLOGICAL: Awake and alert. Cranial nerves grossly intact. Motor grossly within normal limits. PSYCHIATRIC: Normal affect, calm and cooperative. LINE: No evidence of infection Assessment & Plan Remarks IMPRESSION UTI, has L nephrostomy, and has R hydronephrosis - S/P exchange of stent R Hx cervical CA, S/P surgery, XRT and chemo Hx Abdirashid hydronephrosis due to adhesions accdg to patient CKD Allergy to PCH, tolerates Keflex - face gets swollen Rash with Levaquin and Flagyl Metastatic lesions lung and liver, ?new primary RECOMMENDATION Continue IV Cefepime If stable, switch to Ceftin 500 BID x 7 days Oncology workup of lung lesions - for biopsy today Monitor progress Explained plan to the patient Jessy Jeong MD Mar 21, 2017 12:31
[2017-03-21 14:51] LABS: AUTOMATED NEUTROPHIL # 4.7 TH/MM3 (1.8-7.7); BASOPHIL % 0.6 % (0.0-2.0); EOSINOPHIL # 0.1 TH/MM3 (0-0.4); EOSINOPHIL % 1.3 % (0.0-4.0); HEMATOCRIT 29.4 % (35.0-46.0); HEMO FLAGS DIFF FINAL; LYMPH % 24.8 % (9.0-44.0); LYMPHOCYTE # 1.9 TH/MM3 (1.0-4.8); MEAN CELL VOLUME 88.4 FL (80.0-100.0); MEAN CORPUSCULAR HEMOGLOBIN 28.6 PG (27.0-34.0); MEAN CORPUSCULAR HGB CONC 32.4 % (32.0-36.0); MONO % 10.4 % (0.0-8.0); NEUT % 62.9 % (16.0-70.0); PLATELET COUNT 328 TH/MM3 (150-450); RED BLOOD COUNT 3.33 MIL/MM3 (4.00-5.30); RED CELL DISTRIBUTION WIDTH 16.1 % (11.6-17.2); WHITE BLOOD COUNT 7.5 TH/MM3 (4.0-11.0)
[2017-03-21 14:56] LABS: APTT (PATIENT) 56.9 SEC (24.3-30.1)
[2017-03-21 15:15] LABS: BETA HCG QUANT LESS THAN 1 MIU/ML (0-5)
--- NOTE | 2017-03-21 17:17 | HHI.PR ---
Subjective Remarks Patient seen at 3:15pm c/o lower back pain. denies cp/sob. Denies fevers/chills feels hungry. Objective Vitals Vital Signs Date Time Temp Pulse Resp B/P (MAP) Pulse Ox O2 Delivery O2 Flow Rate FiO2 03/21/17 12:49 98.2 92 18 110/68 (82) 99 03/21/17 08:46 98.4 83 18 136/84 (101) 99 03/21/17 04:19 98.4 77 15 125/78 98 03/21/17 04:18 71 03/21/17 04:12 17 03/21/17 03:57 98.4 87 17 118/76 99 03/21/17 00:18 92 03/20/17 23:59 98.2 90 17 118/76 (90) 95 03/20/17 22:30 18 03/20/17 21:15 98.7 88 15 105/64 (78) 100 03/20/17 20:01 92 I/O 03/20/17 03/20/17 03/20/17 03/21/17 03/21/17 03/21/17 07:00 15:00 23:00 07:00 15:00 23:00 Intake Total 100 ml 100 ml 450 ml Output Total 100 ml 850 ml 350 ml 475 ml Balance 0 ml -850 ml -250 ml 450 ml -475 ml IV Total 100 ml 100 ml Packed Cells 400 ml Blood Product IV Normal Saline Flush 50 ml Output Urine Total 100 ml 100 ml 150 ml 100 ml Drainage Total 750 ml 200 ml 375 ml # Voids 2 Result Diagram: 03/21/17 1427 03/21/17 0545 Imaging Last Impressions Chest CT 03/17/17 0000 Signed Impressions: Service Date/Time: Saturday, March 18, 2017 00:17 - CONCLUSION: 1. Widespread pulmonary metastatic disease as above. Syd Bartholomew MD Abdomen/Pelvis CT 03/16/17 0000 Signed Impressions: Service Date/Time: Thursday, March 16, 2017 21:59 - CONCLUSION: 1. Metastatic disease involving the visualized lung bases, liver, and inguinal lymph nodes. 2. Double J stent on the right is in good position. Despite this there is significant hydronephrosis. 3. Left-sided nephrostomy tube in good position. No hydronephrosis on this side. Yifan De La Rosa Jr., MD Lumbar Spine X-Ray 03/15/17 0000 Signed Impressions: Service Date/Time: March 15:15 - CONCLUSION: 1. Intact lumbar spine without evidence of acute process. 2. Right-sided intraureteral stent and left-sided nephrostomy tube. 3. No evidence of nephrolithiasis. Scott Winter MD Lumbar Spine MRI 03/15/17 0000 Signed Impressions: Service Date/Time: March 19:28 - CONCLUSION: 1. No acute abnormality. 2. Hydronephrosis involving the right kidney despite a double-J stent. 3. Left nephrostomy without hydronephrosis. Yifan De La Rosa Jr., MD Objective Remarks AAOx3, nad Clear lungs BL S1S2 RRR, no MRG Abdomen soft, nt, nd extremities without edema and good peripheral pulses Procedures Status post cystoscopy and right ureteral stent exchange Medications and IVs Current Medications Medications (Trade) Dose Ordered Sig/Erendira Route Start Time Stop Time Status Last Admin (NS Flush) 2 ml UNSCH PRN IV FLUSH 03/15/17 15:00 03/19/17 15:46 (NS Flush) 2 ml BID IV FLUSH 03/15/17 21:00 03/20/17 08:09 (Tylenol) 650 mg Q4H PRN PO 03/15/17 15:00 (Zofran Inj) 4 mg Q6H PRN IVP 03/15/17 15:00 (Tylenol) 650 mg Q6H PRN PO 03/15/17 15:00 (Narcan Inj) 0.4 mg UNSCH PRN IV PUSH 03/15/17 15:00 (Julieta-Colace) 1 tab BID PO 03/15/17 21:00 03/21/17 08:42 (Miralax) 17 gm DAILY PO 03/15/17 16:00 03/20/17 08:09 (Compazine Supp) 25 mg Q12H PRN RECTAL 03/16/17 11:45 (Percocet 5-325 Mg) 1 tab Q6H PRN PO 03/16/17 11:45 03/20/17 16:39 (Percocet 10-325 Mg) 1 tab Q6H PRN PO 03/16/17 11:45 03/21/17 14:43 (Morphine Inj) 2 mg Q3H PRN IV PUSH 03/16/17 11:45 (Morphine Inj) 4 mg Q3H PRN IV PUSH 03/16/17 11:45 03/17/17 05:27 (Milk Of Magnesia Liq) 30 ml Q12H PRN PO 03/16/17 11:45 (Senokot) 17.2 mg Q12H PRN PO 03/16/17 11:45 (Dulcolax Supp) 10 mg DAILY PRN RECTAL 03/16/17 11:45 (Lactulose Liq) 30 ml DAILY PRN PO 03/16/17 11:45 Cefepime HCl 1000 mg/Sodium Chloride 100 ml @ 200 mls/hr Q12H IV 03/16/17 16:00 03/21/17 03:11 Heparin Sodium/ Dextrose 250 ml @ 12 mls/hr TITRATE PRN IV 03/20/17 00:00 Future hold 03/20/17 18:15 (Tylenol) 650 mg UNSCH X1 PRN PO 03/21/17 00:15 03/22/17 00:14 03/21/17 03:12 (Benadryl) 25 mg UNSCH X1 PRN PO 03/21/17 00:15 03/22/17 00:14 03/21/17 03:12 A/P Problem List: (1) Hydronephrosis, right ICD Code: N13.30 - Unspecified hydronephrosis (2) Pyelonephritis ICD Code: N12 - Tubulo-interstitial nephritis, not specified as acute or chronic (3) Low back pain ICD Code: M54.5 - Low back pain Status: Chronic (4) CKD (chronic kidney disease), stage III ICD Code: N18.3 - Chronic kidney disease, stage 3 (moderate) (5) Constipation ICD Code: K59.00 - Constipation, unspecified Status: Chronic (6) Anemia ICD Code: D64.9 - Anemia, unspecified Status: Chronic (7) DVT (deep venous thrombosis) ICD Code: I82.409 - Acute embolism and thrombosis of unspecified deep veins of unspecified lower extremity Status: Chronic (8) Metastatic disease ICD Code: C79.9 - Secondary malignant neoplasm of unspecified site Assessment and Plan (1) Hydronephrosis, right Plan: The patient is status post cystoscopy with right ureteral stent insertion and urinary tract infection. Neurology consulted. Appreciate recommendations. The patient has been scheduled for cystoscopy in a.m. Nothing by mouth at midnight. 03/18 the patient is status post cystourethroscopy with right ureteral stent exchange by Dr. Jimbo Rondon. Continue to monitor BUN/creatinine which has been trending up. 03/19 creatinine stable at 1.55. Continue to monitor BUN/creatinine. 03/20 Creatinine trending down - Creatinine down to 1.4. 03/21 Creatinine continues to improved - Monitor BUN/Creatinine. (2) Pyelonephritis Plan: History of admission. UA indicative of infection. She does have a left nephrostomy tube in place and was started on aztreonam in the emergency department for concern of pyelonephritis. Appreciate ID consultation recommendations. Patient initially started on aztreonam, which has been discontinued and the patient is currently on IV cefepime. Continue aspirin ID recommendations. Urine culture without growth in 48 hours. 03/19 ID recommends continuation of IV cefepime and repeat UA and cultures and sensitivities to decide on oral antibiotic. 03/21 Antibiotics as per ID. Will switch to Ceftin 500 mg po BID x7 days. (3) Low back pain Plan: Ongoing for the past 3 weeks. Much improved. Continue pain control. Lumbar spine x-ray did not show any evidence of acute process. Right-sided intraureteral stent and left-sided nephrostomy tube. No evidence of nephrolithiasis. Lumbar spine MRI did not show any acute abnormality. Hydronephrosis involving the right kidney despite a double-J stent. Left nephrostomy without hydronephrosis. Pain possibly secondary to right hydronephrosis. Pain improving. Continue pain control. (4) CKD (chronic kidney disease), stage III Plan: Upon review of medical records, the patient had a creatinine of 2.28 . Abdomen came down, however it slowly trending up. Creatinine trending down. Continue to monitor BUN/creatinine. (5) Constipation Plan: Continue MiraLAX and Julieta-Colace. Seems to be stable now. (6) Anemia Plan: Seems to be chronic, however hemoglobin has been dropping down. Hemoglobin noted to be 9.5 on admission, slowly trending down and down to 8.0. I will check stool guaiac and iron studies. 03/20 iron studies consistent with anemia of chronic disease. Stool guaiac ordered and pending. Hemoglobin tranding down and 7.5 today. Transfuse if hemoglobin < 7. (7) DVT (deep venous thrombosis) Plan: On coumadin. INR therapeutic. Hold Coumadin for possible biopsy. (8) Metastatic disease ICD Code: C79.9 - Secondary malignant neoplasm of unspecified site Plan: CT abdomen and pelvis as described above shows evidence of metastatic disease in a patient with recent history of cervical cancer status post chemotherapy and radiation therapy. Medical oncology consulted. The patient currently under workup for metastatic disease. Oncology recommends to continue to hold Coumadin and once INR falls below 1.6 then the patient should be started on IV heparin drip. Interventional radiology will be consulted by oncology for a CT-guided biopsy of the liver lesions. 03/20 INR still 2.0, patient given Vitamin K by oncology and started on heparin drip. 03/[address] guided liver biopsy today. DVT prophylaxis: SCDs, awake chemoprophylaxis given slow hemoglobin down trend. Discharge Planning Continue to monitor in the medical floor. For CT guided biopsy of the liver. Problem Qualifiers (1) Low back pain: Qualified Codes: M54.5 - Low back pain; G89.29 - Other chronic pain (2) Constipation: Qualified Codes: K59.00 - Constipation, unspecified (3) Anemia: Qualified Codes: D64.9 - Anemia, unspecified Parish Jeong MD Mar 21, 2017 17:17
[2017-03-21] MEDS: CEFUROXIME AXETIL 500 MG TAB PO SCH (20:57)
[2017-03-21] MEDS: HEPARIN-D5W 25,000 U/250 ML 250 ML IV PRN (21:11)
[2017-03-21 21:35] LABS: APTT (PATIENT) 54.7 SEC (24.3-30.1)
[2017-03-22] VITALS (10 sets, daily range): BP systolic 110–137; BP diastolic 62–77; PULSE 77–122; RESP 16–19; TEMP 98.1–99; O2SAT 94–100
[2017-03-22] MEDS: oxyCODONE/ACETAMINOPHEN 5 MG/325 MG TAB PO PRN (00:38)
[2017-03-22 07:00] LABS: AUTOMATED NEUTROPHIL # 4.6 TH/MM3 (1.8-7.7); BASOPHIL # 0.1 TH/MM3 (0-0.2); EOSINOPHIL # 0.1 TH/MM3 (0-0.4); EOSINOPHIL % 1.6 % (0.0-4.0); HEMATOCRIT 27.7 % (35.0-46.0); HEMO FLAGS DIFF FINAL; LYMPH % 28.2 % (9.0-44.0); LYMPHOCYTE # 2.2 TH/MM3 (1.0-4.8); MEAN CELL VOLUME 88.4 FL (80.0-100.0); MEAN CORPUSCULAR HEMOGLOBIN 28.8 PG (27.0-34.0); MEAN CORPUSCULAR HGB CONC 32.6 % (32.0-36.0); MONO % 10.9 % (0.0-8.0); NEUT % 58.3 % (16.0-70.0); PLATELET COUNT 360 TH/MM3 (150-450); RED BLOOD COUNT 3.13 MIL/MM3 (4.00-5.30); RED CELL DISTRIBUTION WIDTH 16.2 % (11.6-17.2); WHITE BLOOD COUNT 7.9 TH/MM3 (4.0-11.0)
[2017-03-22 07:06] LABS: APTT (PATIENT) 64.4 SEC (24.3-30.1); INTERNATIONAL NORMALIZED RATIO 1.3 RATIO; PROTHROMBIN TIME - PATIENT 14.3 SEC (9.8-11.6)
[2017-03-22 07:31] LABS: POTASSIUM 3.9 MEQ/L (3.5-5.1)
[2017-03-22] MEDS: DOCUSATE SODIUM 50 MG/SENNA 8.6 MG TAB PO SCH ×2 (09:00→22:28)
[2017-03-22] MEDS: CEFUROXIME AXETIL 500 MG TAB PO SCH ×2 (09:00→22:28)
[2017-03-22] MEDS: POLYETHYLENE GLYCOL 17 GM PKG PO SCH (09:00)
[2017-03-22] MEDS: MORPHINE SULFATE 4 MG/ML INJ IV PUSH PRN ×3 (09:13→14:41)
[2017-03-22] MEDS: SODIUM CHLORIDE 0.9% FLUSH 10 ML FLUSH IV FLUSH SCH ×2 (09:13→22:28)
--- NOTE | 2017-03-22 10:56 | PD.ONC.PN ---
Subjective Subjective Remarks Afebrile Waiting to go for biopsy of liver Discussed that it would be a few days before we had any results C/o back pain but has just rec'd something for pain Objective Data Date Time Temp Pulse Resp B/P (MAP) Pulse Ox O2 Delivery O2 Flow Rate FiO2 03/22/17 05:47 98.1 97 19 126/77 (93) 99 03/22/17 04:13 77 03/22/17 01:38 16 03/22/17 00:29 98.3 96 17 113/69 (84) 99 03/21/17 23:58 98 03/21/17 21:57 16 03/21/17 21:14 98.5 96 18 138/85 (102) 99 03/21/17 20:07 79 03/21/17 16:50 98.7 80 16 119/70 (86) 100 03/21/17 12:49 98.2 92 18 110/68 (82) 99 03/22/17 03/22/17 03/22/17 07:00 15:00 23:00 Output Total 180 ml Balance -180 ml Result Diagram: 03/22/17 0549 03/22/17 0549 Laboratory Results Laboratory Tests Test 03/21/17 14:27 03/21/17 20:48 03/22/17 05:49 White Blood Count 7.5 TH/MM3 7.9 TH/MM3 Red Blood Count 3.33 MIL/MM3 3.13 MIL/MM3 Hemoglobin 9.5 GM/DL 9.0 GM/DL Hematocrit 29.4 % 27.7 % Mean Corpuscular Volume 88.4 FL 88.4 FL Mean Corpuscular Hemoglobin 28.6 PG 28.8 PG Mean Corpuscular Hemoglobin Concent 32.4 % 32.6 % Red Cell Distribution Width 16.1 % 16.2 % Platelet Count 328 TH/MM3 360 TH/MM3 Mean Platelet Volume 7.7 FL 7.9 FL Neutrophils (%) (Auto) 62.9 % 58.3 % Lymphocytes (%) (Auto) 24.8 % 28.2 % Monocytes (%) (Auto) 10.4 % 10.9 % Eosinophils (%) (Auto) 1.3 % 1.6 % Basophils (%) (Auto) 0.6 % 1.0 % Neutrophils # (Auto) 4.7 TH/MM3 4.6 TH/MM3 Lymphocytes # (Auto) 1.9 TH/MM3 2.2 TH/MM3 Monocytes # (Auto) 0.8 TH/MM3 0.9 TH/MM3 Eosinophils # (Auto) 0.1 TH/MM3 0.1 TH/MM3 Basophils # (Auto) 0.0 TH/MM3 0.1 TH/MM3 CBC Comment DIFF FINAL DIFF FINAL Differential Comment Activated Partial Thromboplast Time 56.9 SEC 54.7 SEC 64.4 SEC Prothrombin Time 14.3 SEC Prothromb Time International Ratio 1.3 RATIO Blood Urea Nitrogen 17 MG/DL Creatinine 1.17 MG/DL Random Glucose 77 MG/DL Calcium Level 9.3 MG/DL Sodium Level 138 MEQ/L Potassium Level 3.9 MEQ/L Chloride Level 103 MEQ/L Carbon Dioxide Level 24.0 MEQ/L Anion Gap 11 MEQ/L Estimat Glomerular Filtration Rate 59 ML/MIN Culture Results Microbiology Date/Time Source Procedure Growth Status 03/19/17 18:20 Urine Clean Catch Urine Culture - Final <10,000 CFU/ML GRAM POSITIVE OMAR Complete Administered Medications Medications (Trade) Dose Ordered Sig/Erendira Route PRN Reason Start Time Stop Time Status Last Admin Dose Admin Sodium Chloride (NS Flush) 2 ml UNSCH PRN IV FLUSH FLUSH AFTER USING IV ACCESS 03/15/17 15:00 03/19/17 15:46 Sodium Chloride (NS Flush) 2 ml BID IV FLUSH 03/15/17 21:00 03/22/17 09:13 Senna/Docusate Sodium (Julieta-Colace) 1 tab BID PO 03/15/17 21:00 03/21/17 20:57 Polyethylene Glycol (Miralax) 17 gm DAILY PO 03/15/17 16:00 03/20/17 08:09 Oxycodone/ Acetaminophen (Percocet 5-325 Mg) 1 tab Q6H PRN PO PAIN SCALE 3 TO 5 03/16/17 11:45 03/22/17 00:38 Oxycodone/ Acetaminophen (Percocet 10-325 Mg) 1 tab Q6H PRN PO PAIN SCALE 6 TO 10 03/16/17 11:45 03/21/17 20:57 Morphine Sulfate (Morphine Inj) 4 mg Q3H PRN IV PUSH Pain 6-10;if unable to take PO 03/16/17 11:45 03/22/17 09:13 Heparin Sodium/ Dextrose 250 ml @ 12 mls/hr TITRATE PRN IV Coagulation Management 03/20/17 00:00 Future hold 03/21/17 21:11 Cefuroxime Axetil (Ceftin) 500 mg Q12HR PO 03/21/17 21:00 03/21/17 20:57 Objective Remarks GENERAL: Middle aged female, resting in bed in no acute distress SKIN: Warm and dry. HEAD: Normocephalic. EYES: No injection or drainage. NECK: Supple, trachea midline. CARDIOVASCULAR: Regular rate and rhythm without murmurs. RESPIRATORY: Clear anteriorly. Breathing unlabored. GASTROINTESTINAL: Abdomen soft, non-tender, nondistended. EXTREMITIES: No cyanosis, or edema. MUSCULOSKELETAL: Adequate muscle tone. NEUROLOGICAL: No obvious focal deficit. Awake, alert, and oriented x3. Assessment/Plan Problem List: (1) Metastatic disease ICD Codes: C79.9 - Secondary malignant neoplasm of unspecified site Plan: --Bilateral pulmonary masses with multiple hepatic lesions with a history of cervical cancer. --These lesions are highly suspicious for metastatic disease. --Metastatic cervical cancer versus another primary malignancy is suspected. --Pt scheduled for biopsy of liver 03/22. (2) DVT (deep venous thrombosis) ICD Codes: I82.409 - Acute embolism and thrombosis of unspecified deep veins of unspecified lower extremity Status: Chronic Plan: --Heparin gtt on hold for procedure (3) Normocytic anemia ICD Codes: D64.9 - Anemia, unspecified Plan: -- Normocytic anemia with a hemoglobin of 8.5. --Iron studies more consistent with anemia of chronic disease--ferritin is 574 --Obtain a stool Hemoccult, total bilirubin level is normal at 0.4. --Does not appear to be any underlying hemolysis. (4) Renal insufficiency ICD Codes: N28.9 - Disorder of kidney and ureter, unspecified Plan: --Acute on chronic renal failure with right-sided hydronephrosis. --status post stent exchange. -- L side shows no hydronephrosis (5) UTI (urinary tract infection) ICD Codes: N39.0 - Urinary tract infection, site not specified Plan: --UA showed leukocyte esterase large with abundant WBCs and rare urine bacteria. --urine culture no growth --currently on Ceftin. Assessment This is a 51-year-old female who has a past medical history of cervical cancer diagnosed in 2005. She underwent hysterectomy as well as chemotherapy and radiation treatments. She now presents to the emergency department with right flank pain. She was found to have hydronephrosis on the right side and she has undergone stent exchange. On abdominal imaging she was found to have hepatic mets and additional imaging was obtained including CT of the chest which revealed bilateral pulmonary masses. History of DVTs. CKD. Left-sided nephrostomy tube placement. Tonsillectomy. Plan 1. Biopsy held yesterday per CT; discussed with them today and they are planning for procedure today. 2. Resume Heparin after biopsy and plan to transition back to Coumadin when no other procedures planned. 3. Continue to monitor CBC; no need for PRBC transfusion today. 4. Supportive care. Discussed with RN Discussed with CT Attending Statement The exam, history, and the medical decision-making described in the above note were completed with the assistance of the mid-level provider. I reviewed and agree with the findings presented. I attest that I had a [id number] encounter with the patient on the same day, and personally performed and documented my assessment and findings in the medical record Biopsy today Hold heparin 4 hours before procedure will resume after biopsy d/w rn o/n events reviewed Emi Daniels Mar 22, 2017 10:56 Coleman Hester MD Mar 22, 2017 22:45
--- NOTE | 2017-03-22 12:53 | HHI.PR ---
Subjective Remarks Patient seen and evaluated today in follow-up for metastatic evaluation and history of cervical cancer complaining of back pain today which is relieved with IV narcotics morphine/ Care plan discussed with patient, nursing team Objective Vitals Vital Signs Date Time Temp Pulse Resp B/P (MAP) Pulse Ox O2 Delivery O2 Flow Rate FiO2 03/22/17 12:17 98.2 109 16 131/74 (93) 98 03/22/17 05:47 98.1 97 19 126/77 (93) 99 03/22/17 04:13 77 03/22/17 01:38 16 03/22/17 00:29 98.3 96 17 113/69 (84) 99 03/21/17 23:58 98 03/21/17 21:57 16 03/21/17 21:14 98.5 96 18 138/85 (102) 99 03/21/17 20:07 79 03/21/17 16:50 98.7 80 16 119/70 (86) 100 03/21/17 12:49 98.2 92 18 110/68 (82) 99 I/O 03/21/17 03/21/17 03/21/17 03/22/17 03/22/17 03/22/17 07:00 15:00 23:00 07:00 15:00 23:00 Intake Total 450 ml 480 ml Output Total 475 ml 300 ml 180 ml Balance 450 ml -475 ml 180 ml -180 ml Intake Oral 480 ml Packed Cells 400 ml Blood Product IV Normal Saline Flush 50 ml Output Urine Total 100 ml 100 ml Drainage Total 375 ml 200 ml 180 ml # Voids 1 1 Result Diagram: 03/22/17 0549 03/22/17 0549 Objective Remarks GENERAL: This is a frail, well-developed patient, ill-appearing in complaining of back pain CARDIOVASCULAR: Regular rate and rhythm without murmurs, gallops, or rubs. RESPIRATORY: Clear to auscultation. Breath sounds equal bilaterally. No wheezes , rales, or rhonchi. GASTROINTESTINAL: Abdomen soft, non-tender, nondistended. Normal active bowel sounds MUSCULOSKELETAL: Ureteral stent and drain, Extremities without clubbing, cyanosis, or edema. NEURO: Alert & Oriented x4 to person, place, time, situation. Moves all ext x4 Procedures Status post cystoscopy and right ureteral stent exchange A/P Problem List: (1) Hydronephrosis, right ICD Code: N13.30 - Unspecified hydronephrosis Plan: Past status post cystoscopy and right ureteral stent with drain (2) Pyelonephritis ICD Code: N12 - Tubulo-interstitial nephritis, not specified as acute or chronic Plan: Patient with a left nephrostomy tube Continue Ceftin by mouth to complete course ID consult appreciated (3) CKD (chronic kidney disease), stage III ICD Code: N18.3 - Chronic kidney disease, stage 3 (moderate) (4) Constipation ICD Code: K59.00 - Constipation, unspecified Status: Chronic Plan: Continue MiraLAX and Julieta-Colace. Seems to be stable now. (5) Anemia ICD Code: D64.9 - Anemia, unspecified Status: Chronic Plan: Continue current management (6) DVT (deep venous thrombosis) ICD Code: I82.409 - Acute embolism and thrombosis of unspecified deep veins of unspecified lower extremity Status: Chronic Plan: Patient on heparin/Coumadin however these are held for biopsy Right lower extremity (7) Metastatic disease ICD Code: C79.9 - Secondary malignant neoplasm of unspecified site Plan: Pulmonary masses and hepatic lesion Follow-up biopsy of the liver History of cervical cancer Discharge Planning Cleared by urology From [place] May need home health at discharge Await liver biopsy Problem Qualifiers (1) Constipation: Qualified Codes: K59.00 - Constipation, unspecified (2) Anemia: Qualified Codes: D64.9 - Anemia, unspecified Corina Novak MD Mar 22, 2017 12:53
[2017-03-22] MEDS ORDERED: LIDOCAINE 1%/EPINEPHrine 1:100,000 SOLN 20 ML VIAL ONE (14:16)
[2017-03-22] MEDS ORDERED: MIDAZOLAM HCL 2 MG/2 ML VIAL ONE (14:37)
--- NOTE | 2017-03-22 15:45 | PD.RAD ---
Post CT Procedure Prog Note Pre Procedure Diagnosis: (1) Metastatic disease Post Procedure Diagnosis: (1) Metastatic disease Procedure Date: Mar 22, 2017 Supervising Radiologist: Yifan De La Rosa JR Anesthesia: Conscious Sedation Plan of Activity Patient to Unit: ROPU Patient Condition: Good See PACS Report for procedural detail/treatment Biopsy Imaging Guidance: CT Biopsy Procedure: Liver Specimen: Core Biopsy Findings: A core sample of a right hepatic mass performed. Good sample noted. No bleeding on post CT Jr. De La Rosa Thomas Justin MD Mar 22, 2017 15:45
--- NOTE | 2017-03-22 16:31 | RADRPT ---
EXAM DATE/TIME: 03/22/2017 15:20 [place] COMPARISON: No previous studies available for comparison. INDICATIONS : Liver mass. SEDATION TIME: 30 minutes BIOPSY SITE: Right upper quadrant MEDICATION(S): 1.) 3 mg midazolam (Versed) IV 2.) 150 mcg fentanyl (Sublimaze) IV DEVICE(S): 1.) 18 gauge Temno core biopsy needle MEDICAL HISTORY : Hypertension. Deep venous thrombosis. Cervical cancer. SURGICAL HISTORY : Hysterectomy. Nephrostomy tube, renal stents. ENCOUNTER: Initial ACUITY: 1 day PAIN SCORE: 0/10 LOCATION: Right upper quadrant A total of one core specimen(s) were obtained and sent to the laboratory for pathologic evaluation. PROCEDURE: 1. CT guided liver biopsy. Prior to the procedure informed consent was obtained. Any appropriate prior imaging studies were rev iewed. Using automated exposure control and adjustment of the mA and/or kV according to patient size, radiat ion dose was kept as low as reasonably achievable to obtain optimal diagnostic quality images. DICOM format image data is available electronically for review and comparison. The site was prepped in a sterile fashion. Full sterile technique was used, including cap, mask, mely rile gloves and gown and a large sterile sheet. Hand hygiene and 2% chlorhexidine and/or betadine/al cohol prep was utilized per protocol for cutaneous antisepsis. The skin and subcutaneous tissues wer e infiltrated with local anesthetic solution. With CT guidance the previously identified target was localized. Biopsy was performed using the presc ribed needle as above. Adequate hemostasis was obtained with compression at the puncture site. Follow-up CT scan reveals no hemorrhage. The patient tolerated the procedure well and there were no complications. The patient was returned to the Radiology Outpatient Unit in stable condition. CONCLUSION: Uncomplicated CT guided core biopsy of a single right hepatic lobe lesion in this patient with teresa us hepatic masses. Yifan De La Rosa Jr., MD on March 22, 2017 at 16:28 Board Certified Radiologist. This report was verified electronically.
[2017-03-22] MEDS ORDERED: diphenhydrAMINE HCL 25 MG CAP PO PRN (19:00)
[2017-03-22] MEDS ORDERED: diphenhydrAMINE HCL 50 MG CAP PO ONE (19:00)
[2017-03-22] MEDS: oxyCODONE/ACETAMINOPHEN 10 MG/325 MG TAB PO PRN (19:11)
[2017-03-23] VITALS (7 sets, daily range): BP systolic 108–135; BP diastolic 64–89; PULSE 86–104; RESP 16–20; TEMP 98–99; O2SAT 95–99
[2017-03-23] MEDS: oxyCODONE/ACETAMINOPHEN 10 MG/325 MG TAB PO PRN ×4 (03:13→22:26)
[2017-03-23] MEDS: DOCUSATE SODIUM 50 MG/SENNA 8.6 MG TAB PO SCH ×2 (08:48→20:30)
[2017-03-23] MEDS: POLYETHYLENE GLYCOL 17 GM PKG PO SCH (08:48)
[2017-03-23] MEDS: CEFUROXIME AXETIL 500 MG TAB PO SCH ×2 (08:48→20:30)
[2017-03-23] MEDS: SODIUM CHLORIDE 0.9% FLUSH 10 ML FLUSH IV FLUSH SCH ×2 (08:56→20:31)
--- NOTE | 2017-03-23 10:01 | PD.ONC.PN ---
Subjective Subjective Remarks Afebrile overnight. Patient with mild pain in back. Otherwise without complaint. NO pain at site of liver biopsy. NO bleeding. Objective Data Date Time Temp Pulse Resp B/P (MAP) Pulse Ox O2 Delivery O2 Flow Rate FiO2 03/23/17 05:18 16 03/23/17 04:00 98.0 91 16 118/71 (87) 98 03/23/17 00:00 98.1 103 16 108/64 (79) 99 03/22/17 20:28 103 03/22/17 20:00 99.0 98 16 115/69 (84) 98 03/22/17 17:30 98.6 98 17 110/64 (79) 100 03/22/17 16:28 105 18 120/62 (81) 95 03/22/17 15:58 98.3 122 19 137/70 (92) 94 03/22/17 12:17 98.2 109 16 131/74 (93) 98 Result Diagram: 03/22/17 0549 03/22/1749 Administered Medications Medications (Trade) Dose Ordered Sig/Erendira Route PRN Reason Start Time Stop Time Status Last Admin Dose Admin Sodium Chloride (NS Flush) 2 ml UNSCH PRN IV FLUSH FLUSH AFTER USING IV ACCESS 03/15/17 15:00 03/19/17 15:46 Sodium Chloride (NS Flush) 2 ml BID IV FLUSH 03/15/17 21:00 03/23/17 08:56 Senna/Docusate Sodium (Julieta-Colace) 1 tab BID PO 03/15/17 21:00 03/23/17 08:48 Polyethylene Glycol (Miralax) 17 gm DAILY PO 03/15/17 16:00 03/23/17 08:48 Oxycodone/ Acetaminophen (Percocet 5-325 Mg) 1 tab Q6H PRN PO PAIN SCALE 3 TO 5 03/16/17 11:45 03/22/17 00:38 Oxycodone/ Acetaminophen (Percocet 10-325 Mg) 1 tab Q6H PRN PO PAIN SCALE 6 TO 10 03/16/17 11:45 03/23/17 03:13 Morphine Sulfate (Morphine Inj) 4 mg Q3H PRN IV PUSH Pain 6-10;if unable to take PO 03/16/17 11:45 03/22/17 14:41 Heparin Sodium/ Dextrose 250 ml @ 12 mls/hr TITRATE PRN IV Coagulation Management 03/20/17 00:00 Future hold 03/21/17 21:11 Cefuroxime Axetil (Ceftin) 500 mg Q12HR PO 03/21/17 21:00 03/23/17 08:48 Objective Remarks GENERAL: Middle aged female sitting up in bed resting. SKIN: Warm and dry. HEAD: Normocephalic. EYES: No injection or drainage. NECK: Supple, trachea midline. CARDIOVASCULAR: Regular rate and rhythm. RESPIRATORY: Breath sounds equal bilaterally. No accessory muscle use. GASTROINTESTINAL: Abdomen soft, non-tender, nondistended. EXTREMITIES: No cyanosis, NEUROLOGICAL: awake and alert, normal speech. moving all extremities. Left sided nephrostomy tube in place, draining clear urine. Assessment/Plan Problem List: (1) Metastatic disease ICD Codes: C79.9 - Secondary malignant neoplasm of unspecified site Plan: --Bilateral pulmonary masses with multiple hepatic lesions with a history of cervical cancer. --These lesions are highly suspicious for metastatic disease. --Metastatic cervical cancer versus another primary malignancy is suspected. --s/p liver biopsy 03/22. (2) DVT (deep venous thrombosis) ICD Codes: I82.409 - Acute embolism and thrombosis of unspecified deep veins of unspecified lower extremity Status: Chronic Plan: --on Heparin gtt, bridge to coumadin (3) Normocytic anemia ICD Codes: D64.9 - Anemia, unspecified Plan: -- Normocytic anemia with a hemoglobin of 8.5. --Iron studies more consistent with anemia of chronic disease--ferritin is 574 --Does not appear to be any underlying hemolysis. (4) Renal insufficiency ICD Codes: N28.9 - Disorder of kidney and ureter, unspecified Plan: --Acute on chronic renal failure with right-sided hydronephrosis. --status post stent exchange. -- L side shows no hydronephrosis (5) UTI (urinary tract infection) ICD Codes: N39.0 - Urinary tract infection, site not specified Plan: --UA showed leukocyte esterase large with abundant WBCs and rare urine bacteria. --urine culture no growth --currently on Ceftin. Assessment This is a 51-year-old female who has a past medical history of cervical cancer diagnosed in 2005. She underwent hysterectomy as well as chemotherapy and radiation treatments. She now presents to the emergency department with right flank pain. She was found to have hydronephrosis on the right side and she has undergone stent exchange. On abdominal imaging she was found to have hepatic mets and additional imaging was obtained including CT of the chest which revealed bilateral pulmonary masses. History of DVTs. CKD. Left-sided nephrostomy tube placement. Tonsillectomy. Plan 1. continue heparin, start coumadin 2. patient clear for discharge from oncology perspective. Attending Statement The exam, history, and the medical decision-making described in the above note were completed with the assistance of the mid-level provider. I reviewed and agree with the findings presented. I attest that I had a [id number] encounter with the patient on the same day, and personally performed and documented my assessment and findings in the medical record restart heparin and Coumadin- d/c heparin when INR > 2 biopsy results pending Tumor markers results pending d/w rn o/n events reviewed Debra Newell Mar 23, 2017 10:01 Coleman Hester MD Mar 23, 2017 21:33
[2017-03-23 11:14] LABS: APTT (PATIENT) 31.3 SEC (24.3-30.1)
[2017-03-23 11:40] LABS: INTERNATIONAL NORMALIZED RATIO 1.2 RATIO; PROTHROMBIN TIME - PATIENT 13.2 SEC (9.8-11.6)
[2017-03-23] MEDS ORDERED: OXYC1TAB36 PO (13:51)
[2017-03-23] MEDS ORDERED: CEFU1TAB20 PO (13:52)
[2017-03-23] MEDS ORDERED: PERI PO (13:52)
--- NOTE | 2017-03-23 13:55 | HHI.PR ---
Subjective Remarks Patient seen and evaluated in follow-up for, complicated UTI and for metastatic disease Discharge plans discussed with patient and with Laz RN Objective Vitals Vital Signs Date Time Temp Pulse Resp B/P (MAP) Pulse Ox O2 Delivery O2 Flow Rate FiO2 03/23/17 13:05 98.4 104 16 135/89 (104) 98 03/23/17 08:40 98.2 86 16 135/82 (99) 99 03/23/17 05:18 16 03/23/17 04:00 98.0 91 16 118/71 (87) 98 03/23/17 00:00 98.1 103 16 108/64 (79) 99 03/22/17 20:28 103 03/22/17 20:00 99.0 98 16 115/69 (84) 98 03/22/17 17:30 98.6 98 17 110/64 (79) 100 03/22/17 16:28 105 18 120/62 (81) 95 03/22/17 15:58 98.3 122 19 137/70 (92) 94 I/O 03/22/17 03/22/17 03/22/17 03/23/17 03/23/17 03/23/17 07:00 15:00 23:00 07:00 15:00 23:00 Output Total 180 ml 200 ml 250 ml Balance -180 ml -200 ml -250 ml Drainage Total 180 ml 200 ml 250 ml # Voids 1 2 1 6 # Bowel Movements 1 Result Diagram: 03/22/17 0549 03/22/17 0549 Objective Remarks GENERAL: This is a well-developed patient, looks stronger today CARDIOVASCULAR: Regular rate and rhythm without murmurs, gallops, or rubs. RESPIRATORY: Clear to auscultation. Breath sounds equal bilaterally. No wheezes , rales, or rhonchi. GASTROINTESTINAL: Abdomen soft, non-tender, nondistended. Normal active bowel sounds MUSCULOSKELETAL: Ureteral stent and drain, Extremities without clubbing, cyanosis, or edema. NEURO: Alert & Oriented x4 to person, place, time, situation. Moves all ext x4 Procedures Status post cystoscopy and right ureteral stent exchange A/P Problem List: (1) Hydronephrosis, right ICD Code: N13.30 - Unspecified hydronephrosis Plan: Past status post cystoscopy and right ureteral stent with drain Patient will need home health care for drain eval and care and education (2) Pyelonephritis ICD Code: N12 - Tubulo-interstitial nephritis, not specified as acute or chronic Plan: Patient with nephrostomy tube Continue Ceftin by mouth to complete course ID consult appreciated (3) CKD (chronic kidney disease), stage III ICD Code: N18.3 - Chronic kidney disease, stage 3 (moderate) (4) Constipation ICD Code: K59.00 - Constipation, unspecified Status: Chronic Plan: Continue MiraLAX and Julieta-Colace. Seems to be stable now. (5) Anemia ICD Code: D64.9 - Anemia, unspecified Status: Chronic Plan: Continue current management (6) DVT (deep venous thrombosis) ICD Code: I82.409 - Acute embolism and thrombosis of unspecified deep veins of unspecified lower extremity Status: Chronic Plan: not acute resume coumadin Right lower extremity (7) Metastatic disease ICD Code: C79.9 - Secondary malignant neoplasm of unspecified site Plan: Pulmonary masses and hepatic lesion Follow-up biopsy of the liver, outpatient f/u recommended History of cervical cancer Discharge Planning Cleared by urology/hematology/ ID From [facility] at d/c Problem Qualifiers (1) Constipation: Qualified Codes: K59.00 - Constipation, unspecified (2) Anemia: Qualified Codes: D64.9 - Anemia, unspecified Corina Novak MD Mar 23, 2017 13:55
--- NOTE | 2017-03-23 13:58 | HHI.DCPOC ---
Discharge Care Plan Diagnosis: (1) Metastatic disease Goals to Promote Your Health * To prevent worsening of your condition and complications * To maintain your health at the optimal level Directions to Meet Your Goals Take your medications as prescribed Follow your dietary instruction Follow activity as directed Keep your appointments as scheduled Take your immunizations and boosters as scheduled If your symptoms worsen call your PCP, if no PCP go to Urgent Care Center or Emergency Room Smoking is Dangerous to Your Health. Avoid second hand smoke Call the 24-hour hour crisis hotline for domestic abuse at Corina Novak MD Mar 23, 2017 13:58
--- NOTE | 2017-03-23 14:05 | HHI.DS ---
Discharge Summary Admission Date Mar 15, 2017 at 15:09 Discharge Date: Mar 23, 2017 Admitting Diagnosis complicated pyelonephritis, subtherapeutic INR (1) Hydronephrosis, right ICD Code: N13.30 - Unspecified hydronephrosis (2) Pyelonephritis ICD Code: N12 - Tubulo-interstitial nephritis, not specified as acute or chronic (3) CKD (chronic kidney disease), stage III ICD Code: N18.3 - Chronic kidney disease, stage 3 (moderate) (4) Constipation ICD Code: K59.00 - Constipation, unspecified Status: Chronic (5) Anemia ICD Code: D64.9 - Anemia, unspecified Status: Chronic (6) DVT (deep venous thrombosis) ICD Code: I82.409 - Acute embolism and thrombosis of unspecified deep veins of unspecified lower extremity Status: Chronic (7) Metastatic disease ICD Code: C79.9 - Secondary malignant neoplasm of unspecified site Procedures Status post cystoscopy and right ureteral stent exchange liver bx Brief History - From Admission The patient is a 51-year-old female with a past medical history of cervical cancer and left-sided nephrostomy tube placement was presenting to the hospital with ongoing subacute low back pain. The patient says that about 3 weeks ago she started to develop pain in a bandlike distribution above her buttocks. She said the pain didn't start off that severely but gradually got worse as time went by. She started by taking Tylenol to help with the pain and then eventually tried taking tramadol. She said the pain is worse when she is sitting or lying down. She says the pain generally gets better when she stands up. She has not noticed any fevers or night sweats. She has been eating well. She says that over the past couple of days she has noticed some discomfort when urinating. This morning she felt a tingling upon urination. She denied seeing any blood in her urine. She does endorse chronic constipation. She says she has nephrostomy tube has been in place since September and she gets it changed every 3 months. She said she is next due to get it changed in May. CBC/BMP: 03/22/17 0549 03/22/17 0549 Significant Findings Laboratory Tests Test 03/20/17 15:59 03/20/17 18:11 03/21/17 02:03 03/21/17 05:45 Activated Partial Thromboplast Time 41.3 SEC (24.3-30.1) 101.5 SEC (24.3-30.1) 64.3 SEC (24.3-30.1) Haptoglobin 419 MG/DL (30-200) Lactate Dehydrogenase 795 U/L (84-246) 830 U/L (84-246) Prothrombin Time 15.8 SEC (9.8-11.6) Blood Urea Nitrogen 19 MG/DL (7-18) Creatinine 1.37 MG/DL (0.50-1.00) Estimat Glomerular Filtration Rate 49 ML/MIN (>89) Test 03/21/17 14:27 03/21/17 20:48 03/22/17 05:49 03/23/17 10:21 Red Blood Count 3.33 MIL/MM3 (4.00-5.30) 3.13 MIL/MM3 (4.00-5.30) Hemoglobin 9.5 GM/DL (11.6-15.3) 9.0 GM/DL (11.6-15.3) Hematocrit 29.4 % (35.0-46.0) 27.7 % (35.0-46.0) Monocytes (%) (Auto) 10.4 % (0.0-8.0) 10.9 % (0.0-8.0) Activated Partial Thromboplast Time 56.9 SEC (24.3-30.1) 54.7 SEC (24.3-30.1) 64.4 SEC (24.3-30.1) 31.3 SEC (24.3-30.1) Prothrombin Time 14.3 SEC (9.8-11.6) 13.2 SEC (9.8-11.6) Creatinine 1.17 MG/DL (0.50-1.00) Estimat Glomerular Filtration Rate 59 ML/MIN (>89) Imaging Last Impressions Liver Biopsy CT 03/22/17 0000 Signed Impressions: Service Date/Time: March 15:20 - CONCLUSION: Uncomplicated CT guided core biopsy of a single right hepatic lobe lesion in this patient with numerous hepatic masses. Yifan De La Rosa Jr., MD Chest CT 03/17/17 0000 Signed Impressions: Service Date/Time: Saturday, March 18, 2017 00:17 - CONCLUSION: 1. Widespread pulmonary metastatic disease as above. Syd Bartholomew MD Abdomen/Pelvis CT 03/16/17 0000 Signed Impressions: Service Date/Time: Thursday, March 16, 2017 21:59 - CONCLUSION: 1. Metastatic disease involving the visualized lung bases, liver, and inguinal lymph nodes. 2. Double J stent on the right is in good position. Despite this there is significant hydronephrosis. 3. Left-sided nephrostomy tube in good position. No hydronephrosis on this side. Yifan De La Rosa Jr., MD Lumbar Spine X-Ray 03/15/17 0000 Signed Impressions: Service Date/Time: March 15:15 - CONCLUSION: 1. Intact lumbar spine without evidence of acute process. 2. Right-sided intraureteral stent and left-sided nephrostomy tube. 3. No evidence of nephrolithiasis. Scott Winter MD Lumbar Spine MRI 03/15/17 0000 Signed Impressions: Service Date/Time: March 19:28 - CONCLUSION: 1. No acute abnormality. 2. Hydronephrosis involving the right kidney despite a double-J stent. 3. Left nephrostomy without hydronephrosis. Yifan De La Rosa Jr., MD PE at Discharge GENERAL: This is a well-developed patient, looks stronger today CARDIOVASCULAR: Regular rate and rhythm without murmurs, gallops, or rubs. RESPIRATORY: Clear to auscultation. Breath sounds equal bilaterally. No wheezes , rales, or rhonchi. GASTROINTESTINAL: Abdomen soft, non-tender, nondistended. Normal active bowel sounds MUSCULOSKELETAL: Ureteral stent and drain, Extremities without clubbing, cyanosis, or edema. NEURO: Alert & Oriented x4 to person, place, time, situation. Moves all ext x4 Pt update on day of discharge Please see daily progress note Hospital Course Patient's a 51-year-old female who was seen and treated with a chief complaint of low back pain. Patient did have evaluation by hematology, urology, infectious disease and medical team. She did have urine tract infection which was managed with oral antibiotics of the, UTI due to previous urological procedures and nephrostomy. The patient had a known history of DVT and anemia. She has been on warfarin for this. Patient did have an evaluation which included a CT scan and this showed bilateral pulmonary masses with multiple hepatic lesions. He had a headache biopsy of the lesion and the results are still pending. Patient have a nephrostomy placed due to hydronephrosis. This was maintained and cared for by the hospital staff Pt Condition on Discharge: Good Discharge Disposition: Discharge Home Discharge Time: > 30 minutes Discharge Instructions DIET: Follow Instructions for: As Tolerated, No Restrictions Activities you can perform: Regular-No Restrictions Follow up Referrals: Oncology/Hematology - 1 Week with Coleman Hester MD Urology - 2 Weeks with Jimbo Rondon MD New Medications: Cefuroxime (Cefuroxime) 500 Mg Tab 500 MG PO Q12HR for Infection, #8 TAB Oxycodone HCl/Acetaminophen (Oxycodone-Acetaminophen 10-325) 10 Mg-325 Mg Tablet 1 TAB PO Q6H PRN for PAIN SCALE 6 TO 10, #30 TAB Sennosides-Docusate Sodium (Gnp Senna Plus 8.6-50 mg) 8.6 Mg-50 Mg Tab 1 TAB PO BID for Constipation, #62 TAB Continued Medications: Warfarin (Coumadin) 5 Mg Tab 5 MG PO EVERY OTHER DAY for Blood Clot Prevention, #30 TAB 0 Refills Warfarin (Coumadin) 7.5 Mg Tab 7.5 MG PO EVERY OTHER DAY for Prevent Blood Clot, #30 TAB 0 Refills Corina Novak MD Mar 23, 2017 14:05
[2017-03-23] MEDS: WARFARIN SOD 5 MG TAB PO SCH (16:33)
[2017-03-23 21:13] LABS: APTT (PATIENT) 51.8 SEC (24.3-30.1)
[2017-03-24] VITALS: BP 106/60; PULSE 97; RESP 16; TEMP 98; O2SAT 98
[2017-03-24 04:00] VITALS: BP 134/82; PULSE 95; RESP 16; TEMP 97.6; O2SAT 99
[2017-03-24] MEDS: oxyCODONE/ACETAMINOPHEN 10 MG/325 MG TAB PO PRN ×3 (04:08→17:49)
[2017-03-24 04:18] LABS: APTT (PATIENT) 58.3 SEC (24.3-30.1); INTERNATIONAL NORMALIZED RATIO 1.3 RATIO; PROTHROMBIN TIME - PATIENT 14.4 SEC (9.8-11.6)
[2017-03-24] MEDS: HEPARIN-D5W 25,000 U/250 ML 250 ML IV PRN (05:26)
[2017-03-24 08:00] VITALS: BP 154/69; PULSE 99; RESP 20; TEMP 98.7; O2SAT 98
[2017-03-24] MEDS ORDERED: MORPHINE SULFATE 2 MG/ML INJ IV PUSH ONE (09:00)
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
[2017-03-24] MEDS: CEFUROXIME AXETIL 500 MG TAB PO SCH ×2 (09:08→21:07)
[2017-03-24] MEDS: DOCUSATE SODIUM 50 MG/SENNA 8.6 MG TAB PO SCH ×2 (09:08→21:07)
[2017-03-24] MEDS: POLYETHYLENE GLYCOL 17 GM PKG PO SCH (09:08)
[2017-03-24] MEDS: SODIUM CHLORIDE 0.9% FLUSH 10 ML FLUSH IV FLUSH SCH ×2 (09:10→21:00)
[2017-03-24 12:00] VITALS: BP 126/74; PULSE 101; RESP 20; TEMP 98.5; O2SAT 99
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
[2017-03-24 16:00] VITALS: BP 105/67; PULSE 107; RESP 20; TEMP 98.7; O2SAT 97
[2017-03-24] MEDS: WARFARIN SOD 7.5 MG TAB PO SCH (17:48)
[2017-03-24 20:00] VITALS: BP 127/55; PULSE 101; RESP 18; TEMP 98.4; O2SAT 99
[2017-03-25] VITALS: BP 136/85; PULSE 100; RESP 18; TEMP 98.5; O2SAT 98
[2017-03-25] MEDS: oxyCODONE/ACETAMINOPHEN 10 MG/325 MG TAB PO PRN ×4 (00:10→18:29)
[2017-03-25] MEDS: HEPARIN-D5W 25,000 U/250 ML 250 ML IV PRN ×2 (00:16→00:24)
[2017-03-25 04:00] VITALS: BP 118/67; PULSE 86; RESP 16; TEMP 98.9; O2SAT 99
[2017-03-25 08:00] VITALS: BP 131/76; PULSE 93; RESP 20; TEMP 98; O2SAT 98
--- NOTE | 2017-03-25 08:21 | RADRPT ---
EXAM DATE/TIME: 03/25/2017 07:42 [facility] COMPARISON: CT ABDOMEN & PELVIS W/O CONTRAST, March 16, 2017, 21:59. US LEG RIGHT VENOUS DOPPLER, June, 20:24. INDICATIONS : Right leg swelling. MEDICAL HISTORY : Hypertension. Glasses. Deep vein thrombosis. Cervical cancer. SURGICAL HISTORY : Tonsillectomy. Hysterectomy. Tubal ligation. Hernia repair. Left rotator cuff surgery. Nephrostomy t ube in place. ENCOUNTER: Subsequent ACUITY: 1 day PAIN SCORE: 10/10 LOCATION: Right leg. TECHNIQUE: Venous ultrasound of the leg was performed from the inguinal ligament to the proximal calf. Real-lars e, color Doppler and spectral tracing, compression and augmentation techniques were used. FINDINGS: There is normal compressibility of the deep venous system from the inguinal region to the proximal ca lf. No echogenic clot is seen in the lumen of the common femoral, femoral, popliteal, and posterior tibial veins. There is a normal response of the venous system to proximal and distal augmentation an d respiration. There are right inguinal lymph nodes measuring up to 3.0 x 3.9 x 4.1 cm in size. CONCLUSION: 1. No evidence of venous thrombosis of the right lower extremity. 2. As seen on prior CT, there is right inguinal lymphadenopathy that appears metastatic. David Rodriguez MD on March 25, 2017 at 8:15 Board Certified Radiologist. This report was verified electronically.
[2017-03-25] MEDS: SODIUM CHLORIDE 0.9% FLUSH 10 ML FLUSH IV FLUSH SCH ×2 (09:00→20:01)
[2017-03-25] MEDS: DOCUSATE SODIUM 50 MG/SENNA 8.6 MG TAB PO SCH ×2 (09:06→20:01)
[2017-03-25] MEDS: POLYETHYLENE GLYCOL 17 GM PKG PO SCH (09:06)
[2017-03-25] MEDS: CEFUROXIME AXETIL 500 MG TAB PO SCH ×2 (09:06→20:01)
[2017-03-25 10:10] LABS: AUTOMATED NEUTROPHIL # 5.1 TH/MM3 (1.8-7.7); BASOPHIL % 0.4 % (0.0-2.0); EOSINOPHIL # 0.1 TH/MM3 (0-0.4); EOSINOPHIL % 0.7 % (0.0-4.0); HEMATOCRIT 27.9 % (35.0-46.0); HEMO FLAGS DIFF FINAL; LYMPH % 19.8 % (9.0-44.0); LYMPHOCYTE # 1.5 TH/MM3 (1.0-4.8); MEAN CELL VOLUME 88.5 FL (80.0-100.0); MEAN CORPUSCULAR HGB CONC 32.8 % (32.0-36.0); MONO % 9.6 % (0.0-8.0); NEUT % 69.5 % (16.0-70.0); PLATELET COUNT 407 TH/MM3 (150-450); RED BLOOD COUNT 3.15 MIL/MM3 (4.00-5.30); RED CELL DISTRIBUTION WIDTH 16.7 % (11.6-17.2); WHITE BLOOD COUNT 7.4 TH/MM3 (4.0-11.0)
[2017-03-25 10:18] LABS: APTT (PATIENT) 65.1 SEC (24.3-30.1)
[2017-03-25 10:19] LABS: INTERNATIONAL NORMALIZED RATIO 1.3 RATIO
[2017-03-25 12:00] VITALS: BP 115/73; PULSE 108; RESP 20; TEMP 98; O2SAT 98
--- NOTE | 2017-03-25 12:30 | HHI.PR ---
Subjective Remarks Follow-up for multiple nodules and DVT Patient stated last night she had some swelling in her right upper thigh so an ultrasound was done this morning. She asked for results. Otherwise she has no complaints. Deny any shortness of breathing or cough. Patient states she recently moved here from [place]. Objective Vitals Vital Signs Date Time Temp Pulse Resp B/P (MAP) Pulse Ox O2 Delivery O2 Flow Rate FiO2 03/25/17 04:00 98.9 86 16 118/67 (84) 99 03/25/17 00:00 98.5 100 18 136/85 (102) 98 03/24/17 21:00 Room Air 03/24/17 20:00 98.4 101 18 127/55 (79) 99 03/24/17 16:00 98.7 107 20 105/67 (80) 97 03/24/17 13:00 20 I/O 03/24/17 03/24/17 03/24/17 03/25/17 03/25/17 03/25/17 06:59 14:59 22:59 06:59 14:59 22:59 Intake Total 530 ml 480 ml 724 ml Output Total 250 ml 550 ml 500 ml Balance 280 ml -550 ml 480 ml 224 ml Intake Oral 360 ml 480 ml 480 ml IV Total 170 ml 244 ml Drainage Total 250 ml 550 ml 500 ml # Voids 2 4 2 # Bowel Movements 1 2 1 Result Diagram: 03/25/17 0936 03/22/17 0549 Imaging Last Impressions Lower Extremity Ultrasound 03/25/17 0000 Signed Impressions: Service Date/Time: Saturday, March 25, 2017 07:42 - CONCLUSION: 1. No evidence of venous thrombosis of the right lower extremity. 2. As seen on prior CT, there is right inguinal lymphadenopathy that appears metastatic. David Rodriguez MD Liver Biopsy CT 03/22/17 0000 Signed Impressions: Service Date/Time: March 15:20 - CONCLUSION: Uncomplicated CT guided core biopsy of a single right hepatic lobe lesion in this patient with numerous hepatic masses. Yifan De La Rosa Jr., MD Chest CT 03/17/17 0000 Signed Impressions: Service Date/Time: Saturday, March 18, 2017 00:17 - CONCLUSION: 1. Widespread pulmonary metastatic disease as above. Syd Bartholomew MD Abdomen/Pelvis CT 03/16/17 0000 Signed Impressions: Service Date/Time: Thursday, March 16, 2017 21:59 - CONCLUSION: 1. Metastatic disease involving the visualized lung bases, liver, and inguinal lymph nodes. 2. Double J stent on the right is in good position. Despite this there is significant hydronephrosis. 3. Left-sided nephrostomy tube in good position. No hydronephrosis on this side. Yifan De La Rosa Jr., MD Lumbar Spine X-Ray 03/15/17 0000 Signed Impressions: Service Date/Time: March 15:15 - CONCLUSION: 1. Intact lumbar spine without evidence of acute process. 2. Right-sided intraureteral stent and left-sided nephrostomy tube. 3. No evidence of nephrolithiasis. Scott Winter MD Lumbar Spine MRI 03/15/17 0000 Signed Impressions: Service Date/Time: March 19:28 - CONCLUSION: 1. No acute abnormality. 2. Hydronephrosis involving the right kidney despite a double-J stent. 3. Left nephrostomy without hydronephrosis. Yifan De La Rosa Jr., MD Objective Remarks GENERAL: in NAD CARDIOVASCULAR: Regular rate and rhythm without murmurs, gallops, or rubs. RESPIRATORY: Breath sounds equal bilaterally. No accessory muscle use. GASTROINTESTINAL: Abdomen soft, non-tender, nondistended. MUSCULOSKELETAL: No cyanosis, or edema. no B/L calf pain. B/L thighs seems to be symmetrical no TTP. BACK: Nontender without obvious deformity. No CVA tenderness. Procedures Status post cystoscopy and right ureteral stent exchange liver bx Medications and IVs Current Medications Morphine Sulfate (Morphine Inj) 4 mg ONCE ONCE IV PUSH Last administered on 12:35; Start 03/15/17 at 12:00; Stop 03/15/17 at 12:01; Status DC Ondansetron HCl (Zofran Inj) 4 mg ONCE ONCE IVP Last administered on 12:35; Start 03/15/17 at 12:00; Stop 03/15/17 at 12:01; Status DC Sodium Chloride 1,000 ml @ 1,000 mls/hr Q1H IV Last administered on 03/15/17 12:35; Start 03/15/17 at 11:48; Stop 03/15/17 at 12:47; Status DC Sodium Chloride (NS Flush) 2 ml UNSCH PRN IV FLUSH FLUSH AFTER USING IV ACCESS Last administered on 03/15/17 13:43; Start 03/15/17 at 12:00; Stop 03/15/17 at 15:24; Status DC Aztreonam 1000 mg/ Sodium Chloride 100 ml @ 200 mls/hr ONCE ONCE IV Last administered on 03/15/17 13:43; Start 03/15/17 at 13:00; Stop 03/15/17 at 13:29 ; Status DC Oxycodone/ Acetaminophen (Percocet 7.5-325 Mg) 1 tab ONCE ONCE PO Last administered on 03/15/17 14:42; Start 03/15/17 at 14:45; Stop 03/15/17 at 14:46 ; Status DC Warfarin Sodium (Coumadin) 6 mg DAILY@16 PO Last administered on 03/18/17 16: 53; Start 03/15/17 at 16:00; Stop 03/19/17 at 01:19; Status DC Pharmacy Profile Note 0 ml @ 0 mls/hr UNSCH OTHER ; Start 03/15/17 at 15:00; Stop 03/19/17 at 01:19; Status DC Sodium Chloride 1,000 ml @ 100 mls/hr Q10H IV Last administered on 03/16/17 04:33; Start 03/15/17 at 15:30; Stop 03/16/17 at 11:29; Status DC Sodium Chloride (NS Flush) 2 ml UNSCH PRN IV FLUSH FLUSH AFTER USING IV ACCESS Last administered on 03/19/17 15:46; Start 03/15/17 at 15:00 Sodium Chloride (NS Flush) 2 ml BID IV FLUSH Last administered on 03/24/17 09 :10; Start 03/15/17 at 21:00 Acetaminophen (Tylenol) 650 mg Q4H PRN PO TEMP > 100.4; Start 03/15/17 at 15:00 Ondansetron HCl (Zofran Inj) 4 mg Q6H PRN IVP NAUSEA OR VOMITING; Start at 15:00 Acetaminophen (Tylenol) 650 mg Q6H PRN PO PAIN SCALE 1 TO 2; Start 03/15/17 at 15:00 Tramadol HCl (Ultram) 50 mg Q4H PRN PO PAIN SCALE 3 TO 5 Last administered on 03/15/17 21:26; Start 03/15/17 at 15:00; Stop 03/16/17 at 12:53; Status DC Tramadol HCl (Ultram) 100 mg Q4H PRN PO PAIN SCALE 6 TO 10 Last administered on 03/16/17 04:32; Start 03/15/17 at 15:00; Stop 03/16/17 at 12:53; Status DC Naloxone HCl (Narcan Inj) 0.4 mg UNSCH PRN IV PUSH SEE LABEL COMMENTS; Start 03/15/17 at 15:00 Senna/Docusate Sodium (Julieta-Colace) 1 tab BID PO Last administered on 09:06; Start 03/15/17 at 21:00 Polyethylene Glycol (Miralax) 17 gm DAILY PO Last administered on 03/25/17 09 :06; Start 03/15/17 at 16:00 Aztreonam 1000 mg/ Sodium Chloride 100 ml @ 200 mls/hr Q8H IV Last administered on 03/16/17 13:18; Start 03/15/17 at 22:00; Stop 03/16/17 at 15: 53; Status DC Patient Medication Teaching (Coumadin Booklet) 1 ONCE ONCE OTHER Last administered on 03/15/17 16:06; Start 03/15/17 at 15:30; Stop 03/15/17 at 15:37 ; Status DC Sodium Chloride (NS Flush) 2 ml UNSCH PRN IV FLUSH FLUSH AFTER USING IV ACCESS ; Start 03/16/17 at 11:45; Status UNV Sodium Chloride (NS Flush) 2 ml BID IV FLUSH ; Start 03/16/17 at 21:00; Status UNV Acetaminophen (Tylenol) 650 mg Q4H PRN PO TEMP > 100.4; Start 03/16/17 at 11: 45; Status UNV Ondansetron HCl (Zofran Inj) 4 mg Q6H PRN IVP NAUSEA OR VOMITING; Start at 11:45; Status UNV Prochlorperazine (Compazine Supp) 25 mg Q12H PRN RECTAL NAUSEA OR VOMITING; Start 03/16/17 at 11:45 Acetaminophen (Tylenol) 650 mg Q6H PRN PO PAIN SCALE 1 TO 2; Start 03/16/17 at 11:45; Status UNV Oxycodone/ Acetaminophen (Percocet 5-325 Mg) 1 tab Q6H PRN PO PAIN SCALE 3 TO 5 Last administered on 03/22/17 00:38; Start 03/16/17 at 11:45 Oxycodone/ Acetaminophen (Percocet 10-325 Mg) 1 tab Q6H PRN PO PAIN SCALE 6 TO 10 Last administered on 03/25/17 06:41; Start 03/16/17 at 11:45 Morphine Sulfate (Morphine Inj) 2 mg Q3H PRN IV PUSH Pain 3-5; if unable to take PO; Start 03/16/17 at 11:45; Stop 03/24/17 at 08:16; Status DC Morphine Sulfate (Morphine Inj) 4 mg Q3H PRN IV PUSH Pain 6-10;if unable to take PO Last administered on 03/22/17 14:41; Start 03/16/17 at 11:45; Stop 03/24/17 at 08:16; Status DC Naloxone HCl (Narcan Inj) 0.4 mg UNSCH PRN IV PUSH SEE LABEL COMMENTS; Start 03/16/17 at 11:45; Status UNV Senna/Docusate Sodium (Julieta-Colace) 1 tab BID PO ; Start 03/16/17 at 21:00; Status UNV Magnesium Hydroxide (Milk Of Magnesia Liq) 30 ml Q12H PRN PO Mild constipation ; Start 03/16/17 at 11:45 Sennosides (Senokot) 17.2 mg Q12H PRN PO Moderate constipation; Start at 11:45 Bisacodyl (Dulcolax Supp) 10 mg DAILY PRN RECTAL SEVERE CONSITIPATION; Start 03/16/17 at 11:45 Lactulose (Lactulose Liq) 30 ml DAILY PRN PO SEVERE CONSITIPATION; Start 03/16 at 11:45 Cefepime HCl 1000 mg/Sodium Chloride 100 ml @ 200 mls/hr Q12H IV Last administered on 03/21/17 03:11; Start 03/16/17 at 16:00; Stop 03/21/17 at 17 :18; Status DC Diatrizoate Meglum/ Diatrizoate Sod (Md Gastrosonia Liq) 18 ml ONCE ONCE PO Last administered on 03/16/17 17:57; Start 03/16/17 at 16:45; Stop 03/16/17 at 16:46; Status DC Lactated Ringer's 1,000 ml @ 30 mls/hr Q24H PRN IV SEE LABEL COMMENTS; Start 03/17/17 at 20:00; Stop 03/20/17 at 19:59; Status DC Sodium Chloride 500 ml @ 30 mls/hr [id number] PRN IV SEE LABEL COMMENTS; Start at 20:00; Stop 03/20/17 at 19:59; Status DC Metoprolol Tartrate (Lopressor) 25 mg [employer] PRN PO SEE LABEL COMMENTS; Start 03/17/17 at 20:00; Stop 03/20/17 at 19:59; Status DC Povidone Iodine (Betadine 5% Antisepsis Kit) 1 applic [employer] PRN EACH NARE SEE LABEL COMMENTS; Start 03/17/17 at 20:00; Stop 03/20/17 at 19:59; Status DC Chlorhexidine Gluconate (Chlorhexidine 2% Cloth) 3 pack [employer] PRN TOPICAL SEE LABEL COMMENTS; Start 03/17/17 at 20:00; Stop 03/20/17 at 19:59; Status DC Insulin Human Regular (NovoLIN R INJ) See Protocol Table ... [employer] PRN SQ SEE PROTOCOL TABLE; Start 03/17/17 at 20:00; Stop 03/20/17 at 19:59; Status DC Morphine Sulfate (*morphine INJ PERIprocedure ONLY) 8 mg STK-MED ONCE .ROUTE Last administered on 03/18/17 09:18; Start 03/18/17 at 09:18; Stop 03/18/17 at 09:19; Status DC Miscellaneous Information ALL NURSING DEPARTME... UNSCH PRN .XX SEE LABEL COMMENTS; Start 03/18/17 at 09:30; Stop 03/19/17 at 09:29; Status DC Diphenhydramine HCl (Benadryl) 25 mg ONCE ONCE PO Last administered on 05:06; Start 03/19/17 at 04:45; Stop 03/19/17 at 04:54; Status DC Heparin Sodium/ Dextrose 250 ml @ 12 mls/hr TITRATE PRN IV Coagulation Management Last administered on 03/25/17 00:24; Start 03/20/17 at 00:00; Status Future hold Phytonadione (Mephyton) 5 mg STAT ONCE PO Last administered on 03/20/17 10: 40; Start 03/20/17 at 08:15; Stop 03/20/17 at 08:16; Status DC Acetaminophen (Tylenol) 650 mg UNSCH X1 PRN PO 30 MIN PRIOR TO TRANSFUSION Last administered on 03/21/17 03:12; Start 03/21/17 at 00:15; Stop 03/22/17 at 00:14; Status DC Diphenhydramine HCl (Benadryl) 25 mg UNSCH X1 PRN PO 30 MIN PRIOR TO TRANSFUSION Last administered on 03/21/17 03:12; Start 03/21/17 at 00:15; Stop 03/22/17 at 00:14; Status DC Cefuroxime Axetil (Ceftin) 500 mg Q12HR PO Last administered on 03/25/17 09: 06; Start 03/21/17 at 21:00; Stop 03/28/17 at 23:00 Lidocaine HCl (Xylocaine-Mpf 1% Inj) 50 ml STK-MED ONCE OTHER ; Start 03/18/17 at 12:00; Stop 03/22/17 at 08:19; Status DC Midazolam HCl (Versed Inj) 2 mg STK-MED ONCE IV ; Start 03/18/17 at 12:00; Stop 03/22/17 at 08:19; Status DC Ondansetron HCl (Zofran Inj) 4 mg STK-MED ONCE IV PUSH ; Start 03/18/17 at 12: 00; Stop 03/22/17 at 08:19; Status DC Fentanyl Citrate (fentaNYL INJ) 100 mcg STK-MED ONCE IV ; Start 03/18/17 at 12: 00; Stop 03/22/17 at 08:19; Status DC Propofol (Diprivan 200 Mg/20 ml Inj) 200 mg STK-MED ONCE IV ; Start 03/18/17 at 12:00; Stop 03/22/17 at 08:19; Status DC Lidocaine/ Epinephrine (Xylocaine-Epi 1%-1:100,000 Inj) 20 ml STK-MED ONCE .ROUTE ; Start 03/22/17 at 14:16; Stop 03/22/17 at 14:17; Status DC Fentanyl Citrate (fentaNYL INJ) 200 mcg STK-MED ONCE .ROUTE Last administered on 03/22/17 14:37; Start 03/22/17 at 14:37; Stop 03/22/17 at 14:38; Status DC Midazolam HCl (Versed Inj) 4 mg STK-MED ONCE .ROUTE Last administered on 14:37; Start 03/22/17 at 14:37; Stop 03/22/17 at 14:38; Status DC Diphenhydramine HCl (Benadryl) 50 mg ONCE ONCE PO Last administered on 19:10; Start 03/22/17 at 19:00; Stop 03/22/17 at 19:04; Status DC Diphenhydramine HCl (Benadryl) 25 mg Q6H PRN PO itching; Start 03/22/17 at 19: 00 Warfarin Sodium (Coumadin) 5 mg MoWeFr@16 PO Last administered on 03/23/17 16 :33; Start 03/23/17 at 16:00 Warfarin Sodium (Coumadin) 7.5 mg SuTuThSa@16 PO Last administered on 17:48; Start 03/24/17 at 16:00 Morphine Sulfate (Morphine Inj) 2 mg ONCE ONCE IV PUSH Last administered on 09:09; Start 03/24/17 at 09:00; Stop 03/24/17 at 09:01; Status DC Pharmacy Profile Note 0 ml @ 0 mls/hr UNSCH OTHER ; Start 03/24/17 at 14:45 A/P Problem List: (1) Hydronephrosis, right ICD Code: N13.30 - Unspecified hydronephrosis (2) Pyelonephritis ICD Code: N12 - Tubulo-interstitial nephritis, not specified as acute or chronic (3) CKD (chronic kidney disease), stage III ICD Code: N18.3 - Chronic kidney disease, stage 3 (moderate) (4) Constipation ICD Code: K59.00 - Constipation, unspecified Status: Chronic (5) Anemia ICD Code: D64.9 - Anemia, unspecified Status: Chronic (6) DVT (deep venous thrombosis) ICD Code: I82.409 - Acute embolism and thrombosis of unspecified deep veins of unspecified lower extremity Status: Chronic (7) Metastatic disease ICD Code: C79.9 - Secondary malignant neoplasm of unspecified site Assessment and Plan 51-year-old female with past medical history significant for cervical cancer and left-sided nephrostomy tube placement admitted to the hospital with ongoing low back pain found to have right hydronephrosis and UTI/pyelonephritis. Right hydronephrosis History of right ureteral stent Hx of left sided nephrostomy tube, scheduled to be changed every 3 months, last changed 1 month ago - CT abd/pelvis revealed significant right sided hydronephrosis - Urology consulted - s/p cystoscopy with right ureteral stent exchange 03/18/17 UTI/pyelonephritis - as above - initial UCX 03/15 showing no growth, f/u UCX 03/19 growing <10,000 gram positive fco - ID following. Treated with IV Cefepime initially followed by Ceftin 500mg po BID x 7 days, stop date 03/28/17. Stable from ID standpoint, signed off History of cervical cancer status post hysterectomy, chemotherapy and radiation 2005 Probable metastatic disease - CT abd/pelvis revealed metastatic disease involving the visualized lung bases, liver and inguinal lymph nodes - CT of the chest showed multiple bilateral pulmonary nodules characteristic of metastatic disease largest nodule measuring 2.4 cm in the right lower lobe. - Hem/onc following. s/p liver biopsy 03/22 with negative pathology. -Spoke with Debra PA oncologist in regards to negative biopsy result. She stated will speak with attending. I will consult [facility] for possible lung biopsy. DVT, RLE - Coumadin on hold for procedure - on Heparin gtt, bridge to Coumadin. Coumadin resumed by hematology with goal INR>2. - INR 1.3. Continue to follow INR closely. Pharmacy to dose Coumadin. swelling of right thigh -clinically I do not notice a different and she is asymptomatic. US Doppler negative for DVT but suggest right lymphadenopathy i see in other imaging. -continue to monitor. Oncologist aware. Low back pain Bilateral foot drop - ongoing off and on for past several weeks - MRI lumbar spine shows no acute abnormality - pain management with bowel regimen - K thermia - Continue participation with PT. Order bilateral AFOs. CKD, stage 3 - acute on chronic renal failure secondary to right sided hydronephrosis - creatinine 1.17 03/22 - avoid nephrotoxic agents - monitor kidney function intermittently Normocytic anemia - no signs of active bleeding. - hgb 7.5, status post transfusion with good hemoglobin response to 9.5 - iron studies c/w ACD - Hem following - hgb stable. DVT prophylaxis - on Heparin gtt Problem Qualifiers (1) Constipation: Qualified Codes: K59.00 - Constipation, unspecified (2) Anemia: Qualified Codes: D64.9 - Anemia, unspecified Mona Ordonez MD Mar 25, 2017 12:30
[2017-03-25 16:00] VITALS: BP 124/75; PULSE 91; RESP 20; TEMP 98; O2SAT 99
[2017-03-25] MEDS: WARFARIN SOD 7.5 MG TAB PO SCH (16:00)
[2017-03-25 17:06] LABS: APTT (PATIENT) 57.7 SEC (24.3-30.1)
[2017-03-25 19:03] LABS: AUTOMATED NEUTROPHIL # 5.4 TH/MM3 (1.8-7.7); BASOPHIL # 0.1 TH/MM3 (0-0.2); BASOPHIL % 1.1 % (0.0-2.0); EOSINOPHIL # 0.1 TH/MM3 (0-0.4); EOSINOPHIL % 0.9 % (0.0-4.0); HEMO FLAGS DIFF FINAL; LYMPH % 20.6 % (9.0-44.0); LYMPHOCYTE # 1.7 TH/MM3 (1.0-4.8); MEAN CELL VOLUME 88.4 FL (80.0-100.0); MEAN CORPUSCULAR HEMOGLOBIN 28.5 PG (27.0-34.0); MEAN CORPUSCULAR HGB CONC 32.3 % (32.0-36.0); MONO % 11.4 % (0.0-8.0); PLATELET COUNT 418 TH/MM3 (150-450); RED BLOOD COUNT 3.17 MIL/MM3 (4.00-5.30); RED CELL DISTRIBUTION WIDTH 16.3 % (11.6-17.2); WHITE BLOOD COUNT 8.1 TH/MM3 (4.0-11.0)
--- NOTE | 2017-03-25 19:06 | MB ---
cc: TAJ ARELLANO DATE OF CONSULTATION: 03/25/2017. REASON FOR CONSULTATION: Evaluation for lung nodule. REQUESTING PHYSICIAN Dr. Bladimir Braun. HISTORY OF PRESENT ILLNESS: Ms. Dubon is a pleasant 51-year-old -[place] female who recently moved from [place]. She has a history of CA of the cervix diagnosed in 2005. She has received chemotherapy and radiation therapy and then she had a hysterectomy done and was found to have cancer evidence and she took Avastin. The patient came to the hospital because she was feeling weak and had back pain. She has a history of hydronephrosis and left nephrostomy tube which needs to be changed every month because of worsening of her symptoms. She came to the hospital. She had a workup done. She had a CT scan of the chest done which shows she has multiple lung nodules concerning for metastatic disease. Also she had a lesion in the liver. She had a liver biopsy done which showed normal hepatic parenchyma. She denies any weight loss. No fever or chills. No night sweats. PAST MEDICAL HISTORY: 1. History of CA of the cervix status post hysterectomy and chemotherapy and radiation treatment and Avastin therapy. 2. History of left nephrostomy tube. 3. History of pulmonary embolism. She took Eliquis and then she developed another DVT when she was off Eliquis and now she is on Coumadin. MEDICATIONS: 1. She is on Coumadin 7.5 milligrams. 2. Ceftin 500 milligrams q. 12 hours. 3. Compazine PRN. 4. Oxycodone PRN. ALLERGIES: 1. LEVAQUIN. 2. PENICILLIN. 3. FLAGYL. SOCIAL HISTORY: She is . She used to drive a bus. No recent smoking or alcohol. She is . She has five children. REVIEW OF SYSTEMS: She denies any weight loss. No headache or dizziness. No nausea or vomiting. No history of any seizure, stroke or epilepsy. PHYSICAL EXAMINATION: GENERAL: A pleasant elderly female not in any acute distress. VITAL SIGNS: Blood pressure 118/67, heart rate 86, respirations 16, temperature 98.9. HEAD, EYES, EARS, NOSE, THROAT: Pupils are equal and reactive to light. Oral mucosa and nasal mucosa are normal. NECK: The neck is supple. JVP not raised. CHEST: Air entry equal bilaterally. No rhonchi. CARDIOVASCULAR: S1-S2 are normal. ABDOMEN: Abdomen soft and nondistended. She has a left nephrostomy tube. EXTREMITIES: No edema. IMPRESSION: 1. Multiple lung lesions concerning for metastatic disease. 2. History of CA of the cervix status post chemotherapy and radiation treatment and Avastin treatment. 3. History of pulmonary embolism. 4. Left nephrostomy tube , chronic. PLAN: I discussed with the patient that she will need a CT lung biopsy. I explained to her the procedure and the complications including complications of anesthesia , pneumothorax, Bleeding complications, injury to the blood vessels, lungs, nerves which she understands and is willing to proceed. We will consult radiology for CT-guided right lower lobe lung biopsy. Further treatment will depend on the course in the hospital. Thank you, Dr. Braun, for this consult MD RENAE Olivo/[place] /5:44 PM /6:57 PM ME[facility]
[2017-03-25 19:15] LABS: APTT (PATIENT) 58.8 SEC (24.3-30.1); INTERNATIONAL NORMALIZED RATIO 1.3 RATIO; PROTHROMBIN TIME - PATIENT 14.8 SEC (9.8-11.6)
[2017-03-25 20:00] VITALS: BP 113/72; PULSE 97; RESP 18; TEMP 98.2; O2SAT 98
[2017-03-26] VITALS (10 sets, daily range): BP systolic 113–140; BP diastolic 64–82; PULSE 91–134; RESP 16–20; TEMP 97.2–99; O2SAT 95–99
[2017-03-26] MEDS: oxyCODONE/ACETAMINOPHEN 10 MG/325 MG TAB PO PRN ×4 (00:02→20:44)
[2017-03-26] MEDS: HEPARIN-D5W 25,000 U/250 ML 250 ML IV PRN (01:15)
[2017-03-26] MEDS: POLYETHYLENE GLYCOL 17 GM PKG PO SCH (08:55)
[2017-03-26] MEDS: SODIUM CHLORIDE 0.9% FLUSH 10 ML FLUSH IV FLUSH SCH ×2 (08:55→20:45)
[2017-03-26] MEDS: CEFUROXIME AXETIL 500 MG TAB PO SCH ×2 (08:55→20:44)
[2017-03-26] MEDS: DOCUSATE SODIUM 50 MG/SENNA 8.6 MG TAB PO SCH ×2 (08:55→20:44)
[2017-03-26 13:03] LABS: APTT (PATIENT) 68.6 SEC (24.3-30.1); INTERNATIONAL NORMALIZED RATIO 1.3 RATIO; PROTHROMBIN TIME - PATIENT 14.6 SEC (9.8-11.6)
--- NOTE | 2017-03-26 13:14 | PD.ONC.PN ---
Subjective Subjective Remarks Afebrile overnight. Patient resting in bed. Having some of her usual pain in her back at site of nephrostomy tube. Objective Data Date Time Temp Pulse Resp B/P (MAP) Pulse Ox O2 Delivery O2 Flow Rate FiO2 03/26/17 11:58 98.0 96 18 134/76 (95) 98 03/26/17 08:00 Room Air 03/26/17 08:00 97.8 91 18 130/82 (98) 99 03/26/17 04:00 97.8 97 16 129/81 (97) 96 03/26/17 00:00 98.0 93 16 113/77 (89) 98 03/25/17 21:02 Room Air 03/25/17 20:00 98.2 97 18 113/72 (86) 98 03/25/17 16:00 98.0 91 20 124/75 (91) 99 03/26/17 03/26/17 03/26/17 07:00 15:00 23:00 Intake Total 544 ml Output Total 350 ml 200 ml Balance 194 ml -200 ml Result Diagram: 03/25/17 1758 03/22/17 0549 Laboratory Results Laboratory Tests Test 03/25/17 16:34 03/25/17 17:58 03/26/17 12:25 Activated Partial Thromboplast Time 57.7 SEC 58.8 SEC 68.6 SEC White Blood Count 8.1 TH/MM3 Red Blood Count 3.17 MIL/MM3 Hemoglobin 9.0 GM/DL Hematocrit 28.0 % Mean Corpuscular Volume 88.4 FL Mean Corpuscular Hemoglobin 28.5 PG Mean Corpuscular Hemoglobin Concent 32.3 % Red Cell Distribution Width 16.3 % Platelet Count 418 TH/MM3 Mean Platelet Volume 8.4 FL Neutrophils (%) (Auto) 66.0 % Lymphocytes (%) (Auto) 20.6 % Monocytes (%) (Auto) 11.4 % Eosinophils (%) (Auto) 0.9 % Basophils (%) (Auto) 1.1 % Neutrophils # (Auto) 5.4 TH/MM3 Lymphocytes # (Auto) 1.7 TH/MM3 Monocytes # (Auto) 0.9 TH/MM3 Eosinophils # (Auto) 0.1 TH/MM3 Basophils # (Auto) 0.1 TH/MM3 CBC Comment DIFF FINAL Differential Comment Prothrombin Time 14.8 SEC 14.6 SEC Prothromb Time International Ratio 1.3 RATIO 1.3 RATIO Administered Medications Medications (Trade) Dose Ordered Sig/Erendira Route PRN Reason Start Time Stop Time Status Last Admin Dose Admin Sodium Chloride (NS Flush) 2 ml UNSCH PRN IV FLUSH FLUSH AFTER USING IV ACCESS 03/15/17 15:00 03/19/17 15:46 Sodium Chloride (NS Flush) 2 ml BID IV FLUSH 03/15/17 21:00 03/26/17 08:55 Senna/Docusate Sodium (Julieta-Colace) 1 tab BID PO 03/15/17 21:00 03/26/17 08:55 Polyethylene Glycol (Miralax) 17 gm DAILY PO 03/15/17 16:00 03/25/17 09:06 Oxycodone/ Acetaminophen (Percocet 5-325 Mg) 1 tab Q6H PRN PO PAIN SCALE 3 TO 5 03/16/17 11:45 03/22/17 00:38 Oxycodone/ Acetaminophen (Percocet 10-325 Mg) 1 tab Q6H PRN PO PAIN SCALE 6 TO 10 03/16/17 11:45 03/26/17 07:18 Heparin Sodium/ Dextrose 250 ml @ 12 mls/hr TITRATE PRN IV Coagulation Management 03/20/17 00:00 Future hold 03/26/17 01:15 Cefuroxime Axetil (Ceftin) 500 mg Q12HR PO 03/21/17 21:00 03/28/17 23:00 03/26/17 08:55 Warfarin Sodium (Coumadin) 5 mg MoWeFr@16 PO 03/23/17 16:00 03/23/17 16:33 Warfarin Sodium (Coumadin) 7.5 mg SuTuThSa@16 PO 03/24/17 16:00 03/24/17 17:48 Objective Remarks GENERAL: Middle aged female lying in bed in nad. SKIN: Warm and dry. HEAD: Normocephalic. EYES: No injection or drainage. NECK: Supple, trachea midline. CARDIOVASCULAR: Regular rate and rhythm. RESPIRATORY: Breath sounds equal bilaterally. No accessory muscle use. GASTROINTESTINAL: Abdomen soft, non-tender, nondistended. EXTREMITIES: No cyanosis, NEUROLOGICAL: awake and alert, normal speech. moving all extremities. Left sided nephrostomy tube in place. . Assessment/Plan Problem List: (1) Metastatic disease ICD Codes: C79.9 - Secondary malignant neoplasm of unspecified site Plan: --Bilateral pulmonary masses with multiple hepatic lesions with a history of cervical cancer. --These lesions are highly suspicious for metastatic disease. --Metastatic cervical cancer versus another primary malignancy is suspected. --s/p liver biopsy 03/22-->pathology showed only liver parenchyma (2) DVT (deep venous thrombosis) ICD Codes: I82.409 - Acute embolism and thrombosis of unspecified deep veins of unspecified lower extremity Status: Chronic Plan: --on Heparin gtt. --could bridge to coumadin or possibly place on noac after no more procedures planned. This is also somewhat dependent on her renal insufficiency. (3) Normocytic anemia ICD Codes: D64.9 - Anemia, unspecified Plan: -- Normocytic anemia with a hemoglobin of 8.5. --Iron studies more consistent with anemia of chronic disease--ferritin is 574 --Does not appear to be any underlying hemolysis. (4) Renal insufficiency ICD Codes: N28.9 - Disorder of kidney and ureter, unspecified Plan: --Acute on chronic renal failure with right-sided hydronephrosis. --status post stent exchange. -- L side shows no hydronephrosis (5) UTI (urinary tract infection) ICD Codes: N39.0 - Urinary tract infection, site not specified Plan: --UA showed leukocyte esterase large with abundant WBCs and rare urine bacteria. --urine culture no growth --currently on Ceftin. Assessment This is a 51-year-old female who has a past medical history of cervical cancer diagnosed in 2005. She underwent hysterectomy as well as chemotherapy and radiation treatments. She now presents to the emergency department with right flank pain. She was found to have hydronephrosis on the right side and she has undergone stent exchange. On abdominal imaging she was found to have hepatic mets and additional imaging was obtained including CT of the chest which revealed bilateral pulmonary masses. History of DVTs. CKD. Left-sided nephrostomy tube placement. Tonsillectomy. Plan 1. obtain repeat biopsy 2. continue heparin gtt. Attending Statement The exam, history, and the medical decision-making described in the above note were completed with the assistance of the mid-level provider. I reviewed and agree with the findings presented. I attest that I had a [id number] encounter with the patient on the same day, and personally performed and documented my assessment and findings in the medical record still does not have a diagnosis biopsy was non-diagnostic All tumor markers elevated repeat biopsy today heparin GTT Coumadin on discharge can go home with Lovenox bridging case management to assist with insurance needs to establish PCP can be discharged after the biopsy d/w rn o/n events reviewed Debra Newell Mar 26, 2017 13:14 Coleman Hester MD Mar 26, 2017 21:15
--- NOTE | 2017-03-26 13:15 | HHI.PR ---
Subjective Remarks Follow-up for multiple nodules Patient has no complaints. Deny any shortness of breathing, cough or any new issues. Objective Vitals Vital Signs Date Time Temp Pulse Resp B/P (MAP) Pulse Ox O2 Delivery O2 Flow Rate FiO2 03/26/17 11:58 98.0 96 18 134/76 (95) 98 03/26/17 08:00 Room Air 03/26/17 08:00 97.8 91 18 130/82 (98) 99 03/26/17 04:00 97.8 97 16 129/81 (97) 96 03/26/17 00:00 98.0 93 16 113/77 (89) 98 03/25/17 21:02 Room Air 03/25/17 20:00 98.2 97 18 113/72 (86) 98 03/25/17 16:00 98.0 91 20 124/75 (91) 99 I/O 03/25/17 03/25/17 03/25/17 03/26/17 03/26/17 03/26/17 07:00 15:00 23:00 07:00 15:00 23:00 Intake Total 724 ml 240 ml 544 ml Output Total 500 ml 225 ml 350 ml 200 ml Balance 224 ml 15 ml 194 ml -200 ml Intake Oral 480 ml 240 ml 240 ml IV Total 244 ml 304 ml Drainage Total 500 ml 225 ml 350 ml 200 ml # Voids 2 4 3 # Bowel Movements 1 2 1 Result Diagram: 03/25/17 1758 03/22/17 0549 Imaging Last Impressions Lower Extremity Ultrasound 03/25/17 0000 Signed Impressions: Service Date/Time: Saturday, March 25, 2017 07:42 - CONCLUSION: 1. No evidence of venous thrombosis of the right lower extremity. 2. As seen on prior CT, there is right inguinal lymphadenopathy that appears metastatic. David Rodriguez MD Liver Biopsy CT 03/22/17 0000 Signed Impressions: Service Date/Time: March 15:20 - CONCLUSION: Uncomplicated CT guided core biopsy of a single right hepatic lobe lesion in this patient with numerous hepatic masses. Yifan De La Rosa Jr., MD Chest CT 03/17/17 0000 Signed Impressions: Service Date/Time: Saturday, March 18, 2017 00:17 - CONCLUSION: 1. Widespread pulmonary metastatic disease as above. Syd Bartholomew MD Abdomen/Pelvis CT 03/16/17 0000 Signed Impressions: Service Date/Time: Thursday, March 16, 2017 21:59 - CONCLUSION: 1. Metastatic disease involving the visualized lung bases, liver, and inguinal lymph nodes. 2. Double J stent on the right is in good position. Despite this there is significant hydronephrosis. 3. Left-sided nephrostomy tube in good position. No hydronephrosis on this side. Yifan De La Rosa Jr., MD Lumbar Spine X-Ray 03/15/17 0000 Signed Impressions: Service Date/Time: March 15:15 - CONCLUSION: 1. Intact lumbar spine without evidence of acute process. 2. Right-sided intraureteral stent and left-sided nephrostomy tube. 3. No evidence of nephrolithiasis. Scott Winter MD Lumbar Spine MRI 03/15/17 0000 Signed Impressions: Service Date/Time: March 19:28 - CONCLUSION: 1. No acute abnormality. 2. Hydronephrosis involving the right kidney despite a double-J stent. 3. Left nephrostomy without hydronephrosis. Yifan De La Rosa Jr., MD Objective Remarks GENERAL: in NAD CARDIOVASCULAR: Regular rate and rhythm without murmurs, gallops, or rubs. RESPIRATORY: Breath sounds equal bilaterally. No accessory muscle use. GASTROINTESTINAL: Abdomen soft, non-tender, nondistended. MUSCULOSKELETAL: No cyanosis, or edema. no B/L calf pain. B/L thighs seems to be symmetrical no TTP. BACK: Nontender without obvious deformity. No CVA tenderness. Procedures Status post cystoscopy and right ureteral stent exchange liver bx Medications and IVs Current Medications Morphine Sulfate (Morphine Inj) 4 mg ONCE ONCE IV PUSH Last administered on 12:35; Start 03/15/17 at 12:00; Stop 03/15/17 at 12:01; Status DC Ondansetron HCl (Zofran Inj) 4 mg ONCE ONCE IVP Last administered on 12:35; Start 03/15/17 at 12:00; Stop 03/15/17 at 12:01; Status DC Sodium Chloride 1,000 ml @ 1,000 mls/hr Q1H IV Last administered on 03/15/17 12:35; Start 03/15/17 at 11:48; Stop 03/15/17 at 12:47; Status DC Sodium Chloride (NS Flush) 2 ml UNSCH PRN IV FLUSH FLUSH AFTER USING IV ACCESS Last administered on 03/15/17 13:43; Start 03/15/17 at 12:00; Stop 03/15/17 at 15:24; Status DC Aztreonam 1000 mg/ Sodium Chloride 100 ml @ 200 mls/hr ONCE ONCE IV Last administered on 03/15/17 13:43; Start 03/15/17 at 13:00; Stop 03/15/17 at 13:29 ; Status DC Oxycodone/ Acetaminophen (Percocet 7.5-325 Mg) 1 tab ONCE ONCE PO Last administered on 03/15/17 14:42; Start 03/15/17 at 14:45; Stop 03/15/17 at 14:46 ; Status DC Warfarin Sodium (Coumadin) 6 mg DAILY@16 PO Last administered on 03/18/17 16: 53; Start 03/15/17 at 16:00; Stop 03/19/17 at 01:19; Status DC Pharmacy Profile Note 0 ml @ 0 mls/hr UNSCH OTHER ; Start 03/15/17 at 15:00; Stop 03/19/17 at 01:19; Status DC Sodium Chloride 1,000 ml @ 100 mls/hr Q10H IV Last administered on 03/16/17 04:33; Start 03/15/17 at 15:30; Stop 03/16/17 at 11:29; Status DC Sodium Chloride (NS Flush) 2 ml UNSCH PRN IV FLUSH FLUSH AFTER USING IV ACCESS Last administered on 03/19/17 15:46; Start 03/15/17 at 15:00 Sodium Chloride (NS Flush) 2 ml BID IV FLUSH Last administered on 03/26/17 08 :55; Start 03/15/17 at 21:00 Acetaminophen (Tylenol) 650 mg Q4H PRN PO TEMP > 100.4; Start 03/15/17 at 15:00 Ondansetron HCl (Zofran Inj) 4 mg Q6H PRN IVP NAUSEA OR VOMITING; Start at 15:00 Acetaminophen (Tylenol) 650 mg Q6H PRN PO PAIN SCALE 1 TO 2; Start 03/15/17 at 15:00 Tramadol HCl (Ultram) 50 mg Q4H PRN PO PAIN SCALE 3 TO 5 Last administered on 03/15/17 21:26; Start 03/15/17 at 15:00; Stop 03/16/17 at 12:53; Status DC Tramadol HCl (Ultram) 100 mg Q4H PRN PO PAIN SCALE 6 TO 10 Last administered on 03/16/17 04:32; Start 03/15/17 at 15:00; Stop 03/16/17 at 12:53; Status DC Naloxone HCl (Narcan Inj) 0.4 mg UNSCH PRN IV PUSH SEE LABEL COMMENTS; Start 03/15/17 at 15:00 Senna/Docusate Sodium (Julieta-Colace) 1 tab BID PO Last administered on 08:55; Start 03/15/17 at 21:00 Polyethylene Glycol (Miralax) 17 gm DAILY PO Last administered on 03/25/17 09 :06; Start 03/15/17 at 16:00 Aztreonam 1000 mg/ Sodium Chloride 100 ml @ 200 mls/hr Q8H IV Last administered on 03/16/17 13:18; Start 03/15/17 at 22:00; Stop 03/16/17 at 15: 53; Status DC Patient Medication Teaching (Coumadin Booklet) 1 ONCE ONCE OTHER Last administered on 03/15/17 16:06; Start 03/15/17 at 15:30; Stop 03/15/17 at 15:37 ; Status DC Sodium Chloride (NS Flush) 2 ml UNSCH PRN IV FLUSH FLUSH AFTER USING IV ACCESS ; Start 03/16/17 at 11:45; Status UNV Sodium Chloride (NS Flush) 2 ml BID IV FLUSH ; Start 03/16/17 at 21:00; Status UNV Acetaminophen (Tylenol) 650 mg Q4H PRN PO TEMP > 100.4; Start 03/16/17 at 11: 45; Status UNV Ondansetron HCl (Zofran Inj) 4 mg Q6H PRN IVP NAUSEA OR VOMITING; Start at 11:45; Status UNV Prochlorperazine (Compazine Supp) 25 mg Q12H PRN RECTAL NAUSEA OR VOMITING; Start 03/16/17 at 11:45 Acetaminophen (Tylenol) 650 mg Q6H PRN PO PAIN SCALE 1 TO 2; Start 03/16/17 at 11:45; Status UNV Oxycodone/ Acetaminophen (Percocet 5-325 Mg) 1 tab Q6H PRN PO PAIN SCALE 3 TO 5 Last administered on 03/22/17 00:38; Start 03/16/17 at 11:45 Oxycodone/ Acetaminophen (Percocet 10-325 Mg) 1 tab Q6H PRN PO PAIN SCALE 6 TO 10 Last administered on 03/26/17 07:18; Start 03/16/17 at 11:45 Morphine Sulfate (Morphine Inj) 2 mg Q3H PRN IV PUSH Pain 3-5; if unable to take PO; Start 03/16/17 at 11:45; Stop 03/24/17 at 08:16; Status DC Morphine Sulfate (Morphine Inj) 4 mg Q3H PRN IV PUSH Pain 6-10;if unable to take PO Last administered on 03/22/17 14:41; Start 03/16/17 at 11:45; Stop 03/24/17 at 08:16; Status DC Naloxone HCl (Narcan Inj) 0.4 mg UNSCH PRN IV PUSH SEE LABEL COMMENTS; Start 03/16/17 at 11:45; Status UNV Senna/Docusate Sodium (Julieta-Colace) 1 tab BID PO ; Start 03/16/17 at 21:00; Status UNV Magnesium Hydroxide (Milk Of Magnesia Liq) 30 ml Q12H PRN PO Mild constipation ; Start 03/16/17 at 11:45 Sennosides (Senokot) 17.2 mg Q12H PRN PO Moderate constipation; Start at 11:45 Bisacodyl (Dulcolax Supp) 10 mg DAILY PRN RECTAL SEVERE CONSITIPATION; Start 03/16/17 at 11:45 Lactulose (Lactulose Liq) 30 ml DAILY PRN PO SEVERE CONSITIPATION; Start 03/16 at 11:45 Cefepime HCl 1000 mg/Sodium Chloride 100 ml @ 200 mls/hr Q12H IV Last administered on 03/21/17 03:11; Start 03/16/17 at 16:00; Stop 03/21/17 at 17 :18; Status DC Diatrizoate Meglum/ Diatrizoate Sod ( Gastrosonia Linaomie) 18 ml ONCE ONCE PO Last administered on 03/16/17 17:57; Start 03/16/17 at 16:45; Stop 03/16/17 at 16:46; Status DC Lactated Ringer's 1,000 ml @ 30 mls/hr Q24H PRN IV SEE LABEL COMMENTS; Start 03/17/17 at 20:00; Stop 03/20/17 at 19:59; Status DC Sodium Chloride 500 ml @ 30 mls/hr [id number] PRN IV SEE LABEL COMMENTS; Start at 20:00; Stop 03/20/17 at 19:59; Status DC Metoprolol Tartrate (Lopressor) 25 mg [employer] PRN PO SEE LABEL COMMENTS; Start 03/17/17 at 20:00; Stop 03/20/17 at 19:59; Status DC Povidone Iodine (Betadine 5% Antisepsis Kit) 1 applic [employer] PRN EACH NARE SEE LABEL COMMENTS; Start 03/17/17 at 20:00; Stop 03/20/17 at 19:59; Status DC Chlorhexidine Gluconate (Chlorhexidine 2% Cloth) 3 pack [employer] PRN TOPICAL SEE LABEL COMMENTS; Start 03/17/17 at 20:00; Stop 03/20/17 at 19:59; Status DC Insulin Human Regular (NovoLIN R INJ) See Protocol Table ... [employer] DIRECTOR PRN SQ SEE PROTOCOL TABLE; Start 03/17/17 at 20:00; Stop 03/20/17 at 19:59; Status DC Morphine Sulfate (*morphine INJ PERIprocedure ONLY) 8 mg STK-MED ONCE .ROUTE Last administered on 03/18/17 09:18; Start 03/18/17 at 09:18; Stop 03/18/17 at 09:19; Status DC Miscellaneous Information ALL NURSING DEPARTME... UNSCH PRN .XX SEE LABEL COMMENTS; Start 03/18/17 at 09:30; Stop 03/19/17 at 09:29; Status DC Diphenhydramine HCl (Benadryl) 25 mg ONCE ONCE PO Last administered on 05:06; Start 03/19/17 at 04:45; Stop 03/19/17 at 04:54; Status DC Heparin Sodium/ Dextrose 250 ml @ 12 mls/hr TITRATE PRN IV Coagulation Management Last administered on 03/26/17 01:15; Start 03/20/17 at 00:00; Status Future hold Phytonadione (Mephyton) 5 mg STAT ONCE PO Last administered on 03/20/17 10: 40; Start 03/20/17 at 08:15; Stop 03/20/17 at 08:16; Status DC Acetaminophen (Tylenol) 650 mg UNSCH X1 PRN PO 30 MIN PRIOR TO TRANSFUSION Last administered on 03/21/17 03:12; Start 03/21/17 at 00:15; Stop 03/22/17 at 00:14; Status DC Diphenhydramine HCl (Benadryl) 25 mg UNSCH X1 PRN PO 30 MIN PRIOR TO TRANSFUSION Last administered on 03/21/17 03:12; Start 03/21/17 at 00:15; Stop 03/22/17 at 00:14; Status DC Cefuroxime Axetil (Ceftin) 500 mg Q12HR PO Last administered on 03/26/17 08: 55; Start 03/21/17 at 21:00; Stop 03/28/17 at 23:00 Lidocaine HCl (Xylocaine-Mpf 1% Inj) 50 ml STK-MED ONCE OTHER ; Start 03/18/17 at 12:00; Stop 03/22/17 at 08:19; Status DC Midazolam HCl (Versed Inj) 2 mg STK-MED ONCE IV ; Start 03/18/17 at 12:00; Stop 03/22/17 at 08:19; Status DC Ondansetron HCl (Zofran Inj) 4 mg STK-MED ONCE IV PUSH ; Start 03/18/17 at 12: 00; Stop 03/22/17 at 08:19; Status DC Fentanyl Citrate (fentaNYL INJ) 100 mcg STK-MED ONCE IV ; Start 03/18/17 at 12: 00; Stop 03/22/17 at 08:19; Status DC Propofol (Diprivan 200 Mg/20 ml Inj) 200 mg STK-MED ONCE IV ; Start 03/18/17 at 12:00; Stop 03/22/17 at 08:19; Status DC Lidocaine/ Epinephrine (Xylocaine-Epi 1%-1:100,000 Inj) 20 ml STK-MED ONCE .ROUTE ; Start 03/22/17 at 14:16; Stop 03/22/17 at 14:17; Status DC Fentanyl Citrate (fentaNYL INJ) 200 mcg STK-MED ONCE .ROUTE Last administered on 03/22/17 14:37; Start 03/22/17 at 14:37; Stop 03/22/17 at 14:38; Status DC Midazolam HCl (Versed Inj) 4 mg STK-MED ONCE .ROUTE Last administered on 14:37; Start 03/22/17 at 14:37; Stop 03/22/17 at 14:38; Status DC Diphenhydramine HCl (Benadryl) 50 mg ONCE ONCE PO Last administered on 19:10; Start 03/22/17 at 19:00; Stop 03/22/17 at 19:04; Status DC Diphenhydramine HCl (Benadryl) 25 mg Q6H PRN PO itching; Start 03/22/17 at 19: 00 Warfarin Sodium (Coumadin) 5 mg MoWeFr@16 PO Last administered on 03/23/17 16 :33; Start 03/23/17 at 16:00 Warfarin Sodium (Coumadin) 7.5 mg SuTuThSa@16 PO Last administered on 17:48; Start 03/24/17 at 16:00 Morphine Sulfate (Morphine Inj) 2 mg ONCE ONCE IV PUSH Last administered on 09:09; Start 03/24/17 at 09:00; Stop 03/24/17 at 09:01; Status DC Pharmacy Profile Note 0 ml @ 0 mls/hr UNSCH OTHER ; Start 03/24/17 at 14:45 A/P Problem List: (1) Hydronephrosis, right ICD Code: N13.30 - Unspecified hydronephrosis (2) Pyelonephritis ICD Code: N12 - Tubulo-interstitial nephritis, not specified as acute or chronic (3) CKD (chronic kidney disease), stage III ICD Code: N18.3 - Chronic kidney disease, stage 3 (moderate) (4) Constipation ICD Code: K59.00 - Constipation, unspecified Status: Chronic (5) Anemia ICD Code: D64.9 - Anemia, unspecified Status: Chronic (6) DVT (deep venous thrombosis) ICD Code: I82.409 - Acute embolism and thrombosis of unspecified deep veins of unspecified lower extremity Status: Chronic (7) Metastatic disease ICD Code: C79.9 - Secondary malignant neoplasm of unspecified site Assessment and Plan 51-year-old female with past medical history significant for cervical cancer and left-sided nephrostomy tube placement admitted to the hospital with ongoing low back pain found to have right hydronephrosis and UTI/pyelonephritis. Right hydronephrosis History of right ureteral stent Hx of left sided nephrostomy tube, scheduled to be changed every 3 months, last changed 1 month ago - CT abd/pelvis revealed significant right sided hydronephrosis - Urology consulted - s/p cystoscopy with right ureteral stent exchange 03/18/17 UTI/pyelonephritis - as above - initial UCX 03/15 showing no growth, f/u UCX 03/19 growing <10,000 gram positive fco - ID following. Treated with IV Cefepime initially followed by Ceftin 500mg po BID x 7 days, stop date 03/28/17. Stable from ID standpoint, signed off History of cervical cancer status post hysterectomy, chemotherapy and radiation 2005 Probable metastatic disease - CT abd/pelvis revealed metastatic disease involving the visualized lung bases, liver and inguinal lymph nodes - CT of the chest showed multiple bilateral pulmonary nodules characteristic of metastatic disease largest nodule measuring 2.4 cm in the right lower lobe. - Hem/onc following. s/p liver biopsy 03/22 with negative pathology. -Language Asst order CT-guided lung biopsy by IR. Also I spoke to oncologists ANDREINA Richardson and she was ordered a liver biopsy. DVT, RLE - Coumadin on hold for procedure - on Heparin gtt, bridge to Coumadin. Coumadin resumed by hematology with goal INR>2. - INR 1.3. Continue to follow INR closely. Pharmacy to dose Coumadin. -I spoke to oncologists in regards to her anticoagulation since patient has no PCP here in [place] so will be difficult to have follow-up in regards to her INR. Stated that can consider NOAC but question is if patient can afford this since she is self paid. Spoke to case management in regards to the issues. swelling of right thigh, resolved. -US Doppler negative for DVT negative. Low back pain Bilateral foot drop - ongoing off and on for past several weeks - MRI lumbar spine shows no acute abnormality - pain management with bowel regimen - K thermia - Continue participation with PT. Order bilateral AFOs. CKD, stage 3 - acute on chronic renal failure secondary to right sided hydronephrosis - creatinine 1.17 03/22 - avoid nephrotoxic agents - monitor kidney function intermittently Normocytic anemia - no signs of active bleeding. - hgb 7.5, status post transfusion with good hemoglobin response to 9.5 - iron studies c/w ACD - Hem following - hgb stable. DVT prophylaxis - on Heparin gtt Problem Qualifiers (1) Constipation: Qualified Codes: K59.00 - Constipation, unspecified (2) Anemia: Qualified Codes: D64.9 - Anemia, unspecified Mona Ordonez MD Mar 26, 2017 13:14
[2017-03-26] MEDS ORDERED: LIDOCAINE 1%/EPINEPHrine 1:100,000 SOLN 20 ML VIAL ONE (15:34)
[2017-03-26] MEDS ORDERED: MIDAZOLAM HCL 2 MG/2 ML VIAL ONE ×2 (15:55)
[2017-03-26] MEDS: WARFARIN SOD 5 MG TAB PO SCH (16:00)
[2017-03-26] MEDS ORDERED: WARFARIN SOD 2.5 MG TAB PO ONE (16:00)
--- NOTE | 2017-03-26 16:43 | PD.RAD ---
Post CT Procedure Prog Note Pre Procedure Diagnosis: (1) Metastatic disease Post Procedure Diagnosis: (1) Metastatic disease Procedure Date: Mar 26, 2017 Supervising Radiologist: Boubacar Vicente Anesthesia: Conscious Sedation Plan of Activity Patient to Unit: Nursing Unit Patient Condition: Good See PACS Report for procedural detail/treatment Boubacar Vicente MD Mar 26, 2017 16:43
--- NOTE | 2017-03-26 17:04 | RADRPT ---
EXAM DATE/TIME: 03/26/2017 16:06 [facility] COMPARISON: No previous studies available for comparison. INDICATIONS : Diffuse metastatic disease to the liver and lungs. Recent CT-guided biopsy of a mass in the right lob e was nondiagnostic. Repeat biopsy is requested. A mass in the left lobe will be targeted with ultras ound and CT. MEDICAL HISTORY : Hypertension. Deep venous thrombosis. Cervical cancer. SURGICAL HISTORY : Tonsillectomy. Tubal ligation. Hysterectomy. Hernia repair. Left nephrostomy tube placed. Left rotato r cuff repair. Blood transfusions. Liver biopsy. ENCOUNTER: Initial ACUITY: 4 - 6 days PAIN SCORE: Non-responsive LOCATION: Right upper quadrant ORGAN: Left liver SPECIMENS: Three core specimen(s) submitted for pathologic evaluation. DEVICE: 18 gauge Temno needle Post procedure scanning reveals no hematoma or other complication. The possibility does exist that the tissue obtained will be non-diagnostic. If the sample is non-magdalena gnostic a repeat biopsy or surgical biopsy may need to be performed. TECHNIQUE: 1. Ultrasound guidance for needle biopsy. 2. Needle biopsy. The risks, benefits and alternatives to the procedure were explained and verbal and written consent w as obtained. The site was prepped in sterile fashion. Full sterile technique was used, including ca p, mask, sterile gloves and gown and a large sterile sheet. Hand hygiene and 2% chlorhexidine and/or betadine/alcohol prep was utilized per protocol for cutaneous antisepsis. The skin and subcutaneous tissues were infiltrated with local anesthetic solution. Sterile gel and sterile probe cover were u tilized for ultrasound guidance. Patient was placed supine on the CT table. Mass in the left lobe of the liver was localized with CT a nd ultrasound. 17 gauge guide needle was advanced into the mass under real time ultrasound guidance a nd position verified with CT. 18 gauge core biopsy was then obtained using Temno biopsy needle. In to moira, 4 biopsies were obtained. Needle was then removed and small dressing applied to the puncture sit e. Postprocedural CT exam demonstrated no evidence of significant hematoma. The patient tolerated the procedure well and left the ultrasound suite in stable condition. CONCLUSION: Uncomplicated CT and ultrasound guided needle biopsy of mass in the left lobe of the liver, as above. Boubacar Vicente MD on March 26, 2017 at 17:00 Board Certified Radiologist. This report was verified electronically.
--- NOTE | 2017-03-26 18:37 | HHI.PR ---
Subjective Remarks 51 YOAA female with Left Nephrostomy,Liver and Lung nodules Had CT guided Liver Bx No SOB Objective Vital Signs Vital Signs Date Time Temp Pulse Resp B/P (MAP) Pulse Ox O2 Delivery O2 Flow Rate FiO2 03/26/17 17:30 109 20 131/72 (91) 97 03/26/17 17:15 125 20 124/65 (84) 95 03/26/17 17:00 97.2 134 17 140/69 (92) 96 03/26/17 16:00 98.2 105 20 140/80 (100) 99 03/26/17 11:58 98.0 96 18 134/76 (95) 98 03/26/17 08:00 Room Air 03/26/17 08:00 97.8 91 18 130/82 (98) 99 03/26/17 04:00 97.8 97 16 129/81 (97) 96 03/26/17 00:00 98.0 93 16 113/77 (89) 98 03/25/17 21:02 Room Air 03/25/17 20:00 98.2 97 18 113/72 (86) 98 I/O 03/25/17 03/25/17 03/25/17 03/26/17 03/26/17 03/26/17 07:00 15:00 23:00 07:00 15:00 23:00 Intake Total 724 ml 240 ml 544 ml Output Total 500 ml 225 ml 350 ml 500 ml Balance 224 ml 15 ml 194 ml -500 ml Intake Oral 480 ml 240 ml 240 ml IV Total 244 ml 304 ml Drainage Total 500 ml 225 ml 350 ml 500 ml # Voids 2 4 3 # Bowel Movements 1 2 1 Result Diagram: 03/25/17 1758 03/22/17 0549 Objective Remarks GENERAL: MBMN female,NAD SKIN: Warm and dry. HEAD: Normocephalic. EYES: No scleral icterus. No injection or drainage. NECK: Supple, trachea midline. No JVD or lymphadenopathy. CARDIOVASCULAR: Regular rate and rhythm without murmurs, gallops, or rubs. RESPIRATORY: Breath sounds equal bilaterally. No accessory muscle use. GASTROINTESTINAL: Abdomen soft, non-tender, nondistended. Left nephrostomy tube MUSCULOSKELETAL: No cyanosis, or edema. BACK: Nontender without obvious deformity. No CVA tenderness. A/P Assessment and Plan Multiple Lung nodules Liver Lesions H/O ca cx S/P Nephrostomy tube PLAN: Check Liver bx If liver bx non diagnostic, will need lung bx Jose Cruz Ortiz MD Mar 26, 2017 18:37
[2017-03-27] VITALS (7 sets, daily range): BP systolic 129–157; BP diastolic 70–94; PULSE 96–111; RESP 16–18; TEMP 98.1–100; O2SAT 96–99
[2017-03-27] MEDS: oxyCODONE/ACETAMINOPHEN 10 MG/325 MG TAB PO PRN ×3 (04:26→23:08)
[2017-03-27 05:52] LABS: INTERNATIONAL NORMALIZED RATIO 1.3 RATIO; PROTHROMBIN TIME - PATIENT 14.9 SEC (9.8-11.6)
--- NOTE | 2017-03-27 07:26 | RADRPT ---
EXAM DATE/TIME: 03/26/2017 16:02 [facility] COMPARISON: CT NEEDLE BIOPSY LIVER, March 22, 2017, 15:20. INDICATIONS : Diffuse metastatic disease to the liver and lungs. Recent CT-guided biopsy of a mass in the right lobe was nondiagnostic. Repeat biopsy is requested. A mass in the left lobe will be targeted with ultrasound and CT. SEDATION TIME: 30 minutes BIOPSY SITE: liver MEDICATION(S): 1.) 3.5 mg midazolam (Versed) IV 2.) 175 mcg fentanyl (Sublimaze) IV DEVICE(S): 1.) 18 gauge Temno core biopsy needle MEDICAL HISTORY : Hypertension. cervical cancer, deep vein thrombosis SURGICAL HISTORY : Hysterectomy. Tubal ligation. ENCOUNTER: Initial ACUITY: 1 day PAIN SCORE: 0/10 LOCATION: Bilateral abdomen A total of three core specimen(s) were obtained and sent to the laboratory for pathologic evaluation. PROCEDURE: 1. CT guided liver biopsy. 2. Conscious sedation with continuous EKG and oximetry monitoring. 3. EKG and oximetry remained stable throughout the procedure. Prior to the procedure informed consent was obtained. Any appropriate prior imaging studies were rev iewed. Using automated exposure control and adjustment of the mA and/or kV according to patient size, radiat ion dose was kept as low as reasonably achievable to obtain optimal diagnostic quality images. DICOM format image data is available electronically for review and comparison. The site was prepped in a sterile fashion. Full sterile technique was used, including cap, mask, mely rile gloves and gown and a large sterile sheet. Hand hygiene and 2% chlorhexidine and/or betadine/al cohol prep was utilized per protocol for cutaneous antisepsis. The skin and subcutaneous tissues wer e infiltrated with local anesthetic solution. Patient was placed supine on the CT table. Mass in the left lobe of the liver was localized with CT a nd ultrasound. 17 gauge guide needle was advanced into the mass under real time ultrasound guidance and position pierre ified with CT. 18 gauge core biopsy was then obtained using Temno biopsy needle. In total, 4 biopsies were obtai arash. Follow-up CT scan reveals no hemorrhage. The patient tolerated the procedure well and there were no complications. The patient was returned to the Radiology Outpatient Unit in stable condition. CONCLUSION: Uncomplicated CT and ultrasound guided needle biopsy of mass in the left lobe of the liver, as above. Boubacar Vicente MD on March 27, 2017 at 7:23 Board Certified Radiologist. This report was verified electronically.
[2017-03-27] MEDS: DOCUSATE SODIUM 50 MG/SENNA 8.6 MG TAB PO SCH ×2 (09:48→21:02)
[2017-03-27] MEDS: POLYETHYLENE GLYCOL 17 GM PKG PO SCH (09:49)
[2017-03-27] MEDS: CEFUROXIME AXETIL 500 MG TAB PO SCH ×2 (09:49→21:02)
[2017-03-27] MEDS: SODIUM CHLORIDE 0.9% FLUSH 10 ML FLUSH IV FLUSH SCH ×2 (09:49→21:02)
[2017-03-27] MEDS ORDERED: ENOX80P SQ (12:51)
[2017-03-27] MEDS ORDERED: ENOX60P SQ (13:07)
[2017-03-27] MEDS ORDERED: CEFU1TAB20 PO (13:22)
[2017-03-27 13:37] LABS: APTT (PATIENT) 58.3 SEC (24.3-30.1)
--- NOTE | 2017-03-27 13:44 | HHI.PR ---
Subjective Remarks Follow-up for possible metastatic disease and chronic anticoagulations Patient has no complaints. She has chronic pain that is the same stable. I asked nurse to re-weight patient since she will be on Lovenox she stated that she is 64.9 kg with her shoes on. Objective Vitals Vital Signs Date Time Temp Pulse Resp B/P (MAP) Pulse Ox O2 Delivery O2 Flow Rate FiO2 03/27/17 08:00 98.3 96 18 147/86 (106) 97 03/27/17 04:00 98.7 110 16 157/94 (115) 97 03/27/17 00:00 98.5 100 16 129/82 (98) 96 03/26/17 23:47 16 03/26/17 20:00 Room Air 03/26/17 20:00 99.0 111 16 121/64 (83) 97 03/26/17 17:30 109 20 131/72 (91) 97 03/26/17 17:15 125 20 124/65 (84) 95 03/26/17 17:00 97.2 134 17 140/69 (92) 96 03/26/17 16:00 98.2 105 20 140/80 (100) 99 I/O 03/26/17 03/26/17 03/26/17 03/27/17 03/27/17 03/27/17 06:59 14:59 22:59 06:59 14:59 22:59 Intake Total 544 ml 0 ml 240 ml Output Total 350 ml 500 ml 475 ml Balance 194 ml -500 ml 0 ml -235 ml Intake Oral 240 ml 0 ml 240 ml IV Total 304 ml Output Urine Total 175 ml Drainage Total 350 ml 500 ml 300 ml # Voids 3 3 # Bowel Movements 1 0 Result Diagram: 03/25/17 1758 Objective Remarks GENERAL: in NAD CARDIOVASCULAR: Regular rate and rhythm without murmurs, gallops, or rubs. RESPIRATORY: Breath sounds equal bilaterally. No accessory muscle use. GASTROINTESTINAL: Abdomen soft, non-tender, nondistended. MUSCULOSKELETAL: No cyanosis, or edema. no B/L calf pain. B/L thighs seems to be symmetrical no TTP. BACK: Nontender without obvious deformity. No CVA tenderness. Procedures Status post cystoscopy and right ureteral stent exchange liver bx Medications and IVs Current Medications Morphine Sulfate (Morphine Inj) 4 mg ONCE ONCE IV PUSH Last administered on 12:35; Start 03/15/17 at 12:00; Stop 03/15/17 at 12:01; Status DC Ondansetron HCl (Zofran Inj) 4 mg ONCE ONCE IVP Last administered on 12:35; Start 03/15/17 at 12:00; Stop 03/15/17 at 12:01; Status DC Sodium Chloride 1,000 ml @ 1,000 mls/hr Q1H IV Last administered on 03/15/17 12:35; Start 03/15/17 at 11:48; Stop 03/15/17 at 12:47; Status DC Sodium Chloride (NS Flush) 2 ml UNSCH PRN IV FLUSH FLUSH AFTER USING IV ACCESS Last administered on 03/15/17 13:43; Start 03/15/17 at 12:00; Stop 03/15/17 at 15:24; Status DC Aztreonam 1000 mg/ Sodium Chloride 100 ml @ 200 mls/hr ONCE ONCE IV Last administered on 03/15/17 13:43; Start 03/15/17 at 13:00; Stop 03/15/17 at 13:29 ; Status DC Oxycodone/ Acetaminophen (Percocet 7.5-325 Mg) 1 tab ONCE ONCE PO Last administered on 03/15/17 14:42; Start 03/15/17 at 14:45; Stop 03/15/17 at 14:46 ; Status DC Warfarin Sodium (Coumadin) 6 mg DAILY@16 PO Last administered on 03/18/17 16: 53; Start 03/15/17 at 16:00; Stop 03/19/17 at 01:19; Status DC Pharmacy Profile Note 0 ml @ 0 mls/hr UNSCH OTHER ; Start 03/15/17 at 15:00; Stop 03/19/17 at 01:19; Status DC Sodium Chloride 1,000 ml @ 100 mls/hr Q10H IV Last administered on 03/16/17 04:33; Start 03/15/17 at 15:30; Stop 03/16/17 at 11:29; Status DC Sodium Chloride (NS Flush) 2 ml UNSCH PRN IV FLUSH FLUSH AFTER USING IV ACCESS Last administered on 03/19/17 15:46; Start 03/15/17 at 15:00 Sodium Chloride (NS Flush) 2 ml BID IV FLUSH Last administered on 03/27/17 09 :49; Start 03/15/17 at 21:00 Acetaminophen (Tylenol) 650 mg Q4H PRN PO TEMP > 100.4; Start 03/15/17 at 15:00 Ondansetron HCl (Zofran Inj) 4 mg Q6H PRN IVP NAUSEA OR VOMITING; Start at 15:00 Acetaminophen (Tylenol) 650 mg Q6H PRN PO PAIN SCALE 1 TO 2; Start 03/15/17 at 15:00 Tramadol HCl (Ultram) 50 mg Q4H PRN PO PAIN SCALE 3 TO 5 Last administered on 03/15/17 21:26; Start 03/15/17 at 15:00; Stop 03/16/17 at 12:53; Status DC Tramadol HCl (Ultram) 100 mg Q4H PRN PO PAIN SCALE 6 TO 10 Last administered on 03/16/17 04:32; Start 03/15/17 at 15:00; Stop 03/16/17 at 12:53; Status DC Naloxone HCl (Narcan Inj) 0.4 mg UNSCH PRN IV PUSH SEE LABEL COMMENTS; Start 03/15/17 at 15:00 Senna/Docusate Sodium (Julieta-Colace) 1 tab BID PO Last administered on 09:48; Start 03/15/17 at 21:00 Polyethylene Glycol (Miralax) 17 gm DAILY PO Last administered on 03/27/17 09 :49; Start 03/15/17 at 16:00 Aztreonam 1000 mg/ Sodium Chloride 100 ml @ 200 mls/hr Q8H IV Last administered on 03/16/17 13:18; Start 03/15/17 at 22:00; Stop 03/16/17 at 15: 53; Status DC Patient Medication Teaching (Coumadin Booklet) 1 ONCE ONCE OTHER Last administered on 03/15/17 16:06; Start 03/15/17 at 15:30; Stop 03/15/17 at 15:37 ; Status DC Sodium Chloride (NS Flush) 2 ml UNSCH PRN IV FLUSH FLUSH AFTER USING IV ACCESS ; Start 03/16/17 at 11:45; Status UNV Sodium Chloride (NS Flush) 2 ml BID IV FLUSH ; Start 03/16/17 at 21:00; Status UNV Acetaminophen (Tylenol) 650 mg Q4H PRN PO TEMP > 100.4; Start 03/16/17 at 11: 45; Status UNV Ondansetron HCl (Zofran Inj) 4 mg Q6H PRN IVP NAUSEA OR VOMITING; Start at 11:45; Status UNV Prochlorperazine (Compazine Supp) 25 mg Q12H PRN RECTAL NAUSEA OR VOMITING; Start 03/16/17 at 11:45 Acetaminophen (Tylenol) 650 mg Q6H PRN PO PAIN SCALE 1 TO 2; Start 03/16/17 at 11:45; Status UNV Oxycodone/ Acetaminophen (Percocet 5-325 Mg) 1 tab Q6H PRN PO PAIN SCALE 3 TO 5 Last administered on 03/22/17t 00:38; Start 03/16/17 at 11:45 Oxycodone/ Acetaminophen (Percocet 10-325 Mg) 1 tab Q6H PRN PO PAIN SCALE 6 TO 10 Last administered on 03/27/17t 04:26; Start 03/16/17 at 11:45 Morphine Sulfate (Morphine Inj) 2 mg Q3H PRN IV PUSH Pain 3-5; if unable to take PO; Start 03/16/17 at 11:45; Stop 03/24/17 at 08:16; Status DC Morphine Sulfate (Morphine Inj) 4 mg Q3H PRN IV PUSH Pain 6-10;if unable to take PO Last administered on 03/22/17t 14:41; Start 03/16/17 at 11:45; Stop 03/24/17 at 08:16; Status DC Naloxone HCl (Narcan Inj) 0.4 mg UNSCH PRN IV PUSH SEE LABEL COMMENTS; Start 03/16/17 at 11:45; Status UNV Senna/Docusate Sodium (Julieta-Colace) 1 tab BID PO ; Start 03/16/17 at 21:00; Status UNV Magnesium Hydroxide (Milk Of Magnesia Liq) 30 ml Q12H PRN PO Mild constipation ; Start 03/16/17 at 11:45 Sennosides (Senokot) 17.2 mg Q12H PRN PO Moderate constipation; Start at 11:45 Bisacodyl (Dulcolax Supp) 10 mg DAILY PRN RECTAL SEVERE CONSITIPATION; Start 03/16/17 at 11:45 Lactulose (Lactulose Liq) 30 ml DAILY PRN PO SEVERE CONSITIPATION; Start 03/16 at 11:45 Cefepime HCl 1000 mg/Sodium Chloride 100 ml @ 200 mls/hr Q12H IV Last administered on 03/21/17 03:11; Start 03/16/17 at 16:00; Stop 03/21/17 at 17 :18; Status DC Diatrizoate Meglum/ Diatrizoate Sod ( Gastroview Liq) 18 ml ONCE ONCE PO Last administered on 03/16/17 17:57; Start 03/16/17 at 16:45; Stop 03/16/17 at 16:46; Status DC Lactated Ringer's 1,000 ml @ 30 mls/hr Q24H PRN IV SEE LABEL COMMENTS; Start 03/17/17 at 20:00; Stop 03/20/17 at 19:59; Status DC Sodium Chloride 500 ml @ 30 mls/hr [id number] PRN IV SEE LABEL COMMENTS; Start at 20:00; Stop 03/20/17 at 19:59; Status DC Metoprolol Tartrate (Lopressor) 25 mg AUTOMOTIVE ELECTRICAL FITTER PRN PO SEE LABEL COMMENTS; Start 03/17/17 at 20:00; Stop 03/20/17 at 19:59; Status DC Povidone Iodine (Betadine 5% Antisepsis Kit) 1 applic AUTOMOTIVE ELECTRICAL FITTER PRN EACH NARE SEE LABEL COMMENTS; Start 03/17/17 at 20:00; Stop 03/20/17 at 19:59; Status DC Chlorhexidine Gluconate (Chlorhexidine 2% Cloth) 3 pack AUTOMOTIVE ELECTRICAL FITTER PRN TOPICAL SEE LABEL COMMENTS; Start 03/17/17 at 20:00; Stop 03/20/17 at 19:59; Status DC Insulin Human Regular (NovoLIN R INJ) See Protocol Table ... AUTOMOTIVE ELECTRICAL FITTER PRN SQ SEE PROTOCOL TABLE; Start 03/17/17 at 20:00; Stop 03/20/17 at 19:59; Status DC Morphine Sulfate (*morphine INJ PERIprocedure ONLY) 8 mg STK-MED ONCE .ROUTE Last administered on 03/18/17 09:18; Start 03/18/17 at 09:18; Stop 03/18/17 at 09:19; Status DC Miscellaneous Information ALL NURSING DEPARTME... UNSCH PRN .XX SEE LABEL COMMENTS; Start 03/18/17 at 09:30; Stop 03/19/17 at 09:29; Status DC Diphenhydramine HCl (Benadryl) 25 mg ONCE ONCE PO Last administered on 05:06; Start 03/19/17 at 04:45; Stop 03/19/17 at 04:54; Status DC Heparin Sodium/ Dextrose 250 ml @ 12 mls/hr TITRATE PRN IV Coagulation Management Last administered on 03/26/17 01:15; Start 03/20/17 at 00:00; Stop 03/27/17 at 12:53; Status DC Phytonadione (Mephyton) 5 mg STAT ONCE PO Last administered on 03/20/17 10: 40; Start 03/20/17 at 08:15; Stop 03/20/17 at 08:16; Status DC Acetaminophen (Tylenol) 650 mg UNSCH X1 PRN PO 30 MIN PRIOR TO TRANSFUSION Last administered on 03/21/17 03:12; Start 03/21/17 at 00:15; Stop 03/22/17 at 00:14; Status DC Diphenhydramine HCl (Benadryl) 25 mg UNSCH X1 PRN PO 30 MIN PRIOR TO TRANSFUSION Last administered on 03/21/17 03:12; Start 03/21/17 at 00:15; Stop 03/22/17 at 00:14; Status DC Cefuroxime Axetil (Ceftin) 500 mg Q12HR PO Last administered on 03/27/17 09: 49; Start 03/21/17 at 21:00; Stop 03/28/17 at 23:00 Lidocaine HCl (Xylocaine-Mpf 1% Inj) 50 ml STK-MED ONCE OTHER ; Start 03/18/17 at 12:00; Stop 03/22/17 at 08:19; Status DC Midazolam HCl (Versed Inj) 2 mg STK-MED ONCE IV ; Start 03/18/17 at 12:00; Stop 03/22/17 at 08:19; Status DC Ondansetron HCl (Zofran Inj) 4 mg STK-MED ONCE IV PUSH ; Start 03/18/17 at 12: 00; Stop 03/22/17 at 08:19; Status DC Fentanyl Citrate (fentaNYL INJ) 100 mcg STK-MED ONCE IV ; Start 03/18/17 at 12: 00; Stop 03/22/17 at 08:19; Status DC Propofol (Diprivan 200 Mg/20 ml Inj) 200 mg STK-MED ONCE IV ; Start 03/18/17 at 12:00; Stop 03/22/17 at 08:19; Status DC Lidocaine/ Epinephrine (Xylocaine-Epi 1%-1:100,000 Inj) 20 ml STK-MED ONCE .ROUTE ; Start 03/22/17 at 14:16; Stop 03/22/17 at 14:17; Status DC Fentanyl Citrate (fentaNYL INJ) 200 mcg STK-MED ONCE .ROUTE Last administered on 03/22/17 14:37; Start 03/22/17 at 14:37; Stop 03/22/17 at 14:38; Status DC Midazolam HCl (Versed Inj) 4 mg STK-MED ONCE .ROUTE Last administered on 14:37; Start 03/22/17 at 14:37; Stop 03/22/17 at 14:38; Status DC Diphenhydramine HCl (Benadryl) 50 mg ONCE ONCE PO Last administered on 19:10; Start 03/22/17 at 19:00; Stop 03/22/17 at 19:04; Status DC Diphenhydramine HCl (Benadryl) 25 mg Q6H PRN PO itching; Start 03/22/17 at 19: 00 Warfarin Sodium (Coumadin) 5 mg MoWeFr@16 PO Last administered on 03/23/17 16 :33; Start 03/23/17 at 16:00 Warfarin Sodium (Coumadin) 7.5 mg SuTuThSa@16 PO Last administered on 17:48; Start 03/24/17 at 16:00 Morphine Sulfate (Morphine Inj) 2 mg ONCE ONCE IV PUSH Last administered on 09:09; Start 03/24/17 at 09:00; Stop 03/24/17 at 09:01; Status DC Pharmacy Profile Note 0 ml @ 0 mls/hr UNSCH OTHER ; Start 03/24/17 at 14:45 Lidocaine/ Epinephrine (Xylocaine-Epi 1%-1:100,000 Inj) 20 ml STK-MED ONCE .ROUTE Last administered on 03/26/17 15:34; Start 03/26/17 at 15:34; Stop 03/26/17 at 15:35; Status DC Fentanyl Citrate (fentaNYL INJ) 200 mcg STK-MED ONCE .ROUTE Last administered on 03/26/17 16:00; Start 03/26/17 at 15:55; Stop 03/26/17 at 15:56; Status DC Midazolam HCl (Versed Inj) 2 mg STK-MED ONCE .ROUTE Last administered on 16:00; Start 03/26/17 at 15:55; Stop 03/26/17 at 15:56; Status DC Warfarin Sodium (Coumadin) 2.5 mg ONCE ONCE PO ; Start 03/26/17 at 16:00; Stop 03/26/17 at 16:01; Status DC Midazolam HCl (Versed Inj) 2 mg STK-MED ONCE .ROUTE Last administered on 16:00; Start 03/26/17 at 15:55; Stop 03/26/17 at 15:56; Status DC Enoxaparin Sodium (Lovenox Inj) 70 mg Q12H SQ ; Start 03/27/17 at 15:00; Stop 03/27/17 at 15:00; Status DC Enoxaparin Sodium (Lovenox Inj) 60 mg Q12H SQ ; Start 03/27/17 at 15:00 A/P Problem List: (1) Hydronephrosis, right ICD Code: N13.30 - Unspecified hydronephrosis (2) Pyelonephritis ICD Code: N12 - Tubulo-interstitial nephritis, not specified as acute or chronic (3) CKD (chronic kidney disease), stage III ICD Code: N18.3 - Chronic kidney disease, stage 3 (moderate) (4) Constipation ICD Code: K59.00 - Constipation, unspecified Status: Chronic (5) Anemia ICD Code: D64.9 - Anemia, unspecified Status: Chronic (6) DVT (deep venous thrombosis) ICD Code: I82.409 - Acute embolism and thrombosis of unspecified deep veins of unspecified lower extremity Status: Chronic (7) Metastatic disease ICD Code: C79.9 - Secondary malignant neoplasm of unspecified site Assessment and Plan 51-year-old female with past medical history significant for cervical cancer and left-sided nephrostomy tube placement admitted to the hospital with ongoing low back pain found to have right hydronephrosis and UTI/pyelonephritis. Right hydronephrosis History of right ureteral stent Hx of left sided nephrostomy tube, scheduled to be changed every 3 months, last changed 1 month ago - CT abd/pelvis revealed significant right sided hydronephrosis - Urology consulted - s/p cystoscopy with right ureteral stent exchange 03/18/17 UTI/pyelonephritis - as above - initial UCX 03/15 showing no growth, f/u UCX 03/19 growing <10,000 gram positive fco - ID following. Treated with IV Cefepime initially followed by Ceftin 500mg po BID x 7 days, stop date 03/28/17. Stable from ID standpoint, signed off History of cervical cancer status post hysterectomy, chemotherapy and radiation 2005 Probable metastatic disease - CT abd/pelvis revealed metastatic disease involving the visualized lung bases, liver and inguinal lymph nodes - CT of the chest showed multiple bilateral pulmonary nodules characteristic of metastatic disease largest nodule measuring 2.4 cm in the right lower lobe. - Hem/onc following. s/p liver biopsy 03/22 with negative pathology. -Liver biopsy was reordered yesterday. Pending results. Patient clear by oncologist for discharge after liver biopsy. Per medical insurance claims specialist if negative liver biopsy again will need to get a lung biopsy. DVT, RLE - INR 1.3. Continue to follow INR closely. Pharmacy to dose Coumadin. -Dr. Hester recommends using Lovenox to bridge with Coumadin. -Will discontinue heparin and start Lovenox. Patient already on Coumadin being dosed by pharmacist. swelling of right thigh, resolved. -US Doppler negative for DVT negative. Low back pain Bilateral foot drop - ongoing off and on for past several weeks - MRI lumbar spine shows no acute abnormality - pain management with bowel regimen - K thermia - Continue participation with PT. Order bilateral AFOs. CKD, stage 3 - acute on chronic renal failure secondary to right sided hydronephrosis - creatinine 1.17 03/22 - avoid nephrotoxic agents - monitor kidney function intermittently Normocytic anemia - no signs of active bleeding. - hgb 7.5, status post transfusion with good hemoglobin response to 9.5 - iron studies c/w ACD - Hem following - hgb stable. DVT prophylaxis - On Lovenox. Discharge Planning Difficult discharge. Patient recently moved from [place] currently self paid. Most likely patient has metastatic disease. Will need to try to arrange follow up INR with PCP. Discussed at MDR meeting and with case management. Problem Qualifiers (1) Constipation: Qualified Codes: K59.00 - Constipation, unspecified (2) Anemia: Qualified Codes: D64.9 - Anemia, unspecified Mona Ordonez MD Mar 27, 2017 13:44
--- NOTE | 2017-03-27 13:56 | PD.ONC.PN ---
Subjective Subjective Remarks Afebrile overnight Has pain around nephrostomy tube Appetite has been moderate Objective Data Date Time Temp Pulse Resp B/P (MAP) Pulse Ox O2 Delivery O2 Flow Rate FiO2 03/27/17 08:00 98.3 96 18 147/86 (106) 97 03/27/17 04:00 98.7 110 16 157/94 (115) 97 03/27/17 00:00 98.5 100 16 129/82 (98) 96 03/26/17 23:47 16 03/26/17 20:00 Room Air 03/26/17 20:00 99.0 111 16 121/64 (83) 97 03/26/17 17:30 109 20 131/72 (91) 97 03/26/17 17:15 125 20 124/65 (84) 95 03/26/17 17:00 97.2 134 17 140/69 (92) 96 03/26/17 16:00 98.2 105 20 140/80 (100) 99 03/27/17 03/27/17 03/27/17 07:00 15:00 23:00 Intake Total 240 ml Output Total 475 ml Balance -235 ml Result Diagram: 03/25/17 1753 Laboratory Results Laboratory Tests Test 03/27/17 04:35 03/27/17 13:15 Prothrombin Time 14.9 SEC Prothromb Time International Ratio 1.3 RATIO Activated Partial Thromboplast Time 58.3 SEC Imaging Studies Last 24 hours Impressions Liver Biopsy CT 03/26/17 1530 Signed Impressions: Service Date/Time: Sunday, March 26, 2017 16:02 - CONCLUSION: Uncomplicated CT and ultrasound guided needle biopsy of mass in the left lobe of the liver, as above. Boubacar Vicente MD Administered Medications Medications (Trade) Dose Ordered Sig/Erendira Route PRN Reason Start Time Stop Time Status Last Admin Dose Admin Sodium Chloride (NS Flush) 2 ml UNSCH PRN IV FLUSH FLUSH AFTER USING IV ACCESS 03/15/17 15:00 03/19/17 15:46 Sodium Chloride (NS Flush) 2 ml BID IV FLUSH 03/15/17 21:00 03/27/17 09:49 Senna/Docusate Sodium (Julieta-Colace) 1 tab BID PO 03/15/17 21:00 03/27/17 09:48 Polyethylene Glycol (Miralax) 17 gm DAILY PO 03/15/17 16:00 03/27/17 09:49 Oxycodone/ Acetaminophen (Percocet 5-325 Mg) 1 tab Q6H PRN PO PAIN SCALE 3 TO 5 03/16/17 11:45 03/22/17 00:38 Oxycodone/ Acetaminophen (Percocet 10-325 Mg) 1 tab Q6H PRN PO PAIN SCALE 6 TO 10 03/16/17 11:45 03/27/17 04:26 Cefuroxime Axetil (Ceftin) 500 mg Q12HR PO 03/21/17 21:00 03/28/17 23:00 03/27/17 09:49 Warfarin Sodium (Coumadin) 5 mg MoWeFr@16 PO 03/23/17 16:00 03/23/17 16:33 Warfarin Sodium (Coumadin) 7.5 mg SuTuThSa@16 PO 03/24/17 16:00 03/24/17 17:48 Objective Remarks GENERAL: Middle aged female lying in bed in no acute distress SKIN: Warm and dry. Left-sided nephrostomy tube draining clear yellow urine HEAD: Normocephalic. EYES: No injection or drainage. NECK: Supple, trachea midline. CARDIOVASCULAR: Regular rate and rhythm. RESPIRATORY: Breath sounds equal bilaterally. No accessory muscle use. GASTROINTESTINAL: Abdomen soft, non-tender, nondistended. EXTREMITIES: No cyanosis. Braces to bilateral lower extremities NEUROLOGICAL: Awake and alert, normal speech. Moving all extremities. Assessment/Plan Problem List: (1) Metastatic disease ICD Codes: C79.9 - Secondary malignant neoplasm of unspecified site Plan: --Bilateral pulmonary masses with multiple hepatic lesions with a history of cervical cancer. --These lesions are highly suspicious for metastatic disease. --Metastatic cervical cancer versus another primary malignancy is suspected. --s/p liver biopsy 03/22-->pathology showed only liver parenchyma (2) DVT (deep venous thrombosis) ICD Codes: I82.409 - Acute embolism and thrombosis of unspecified deep veins of unspecified lower extremity Status: Chronic Plan: --on Lovenox twice a day --Plan to bridge to Coumadin (3) Normocytic anemia ICD Codes: D64.9 - Anemia, unspecified Plan: -- Normocytic anemia with a hemoglobin of 8.5. --Iron studies more consistent with anemia of chronic disease--ferritin is 574 --Does not appear to be any underlying hemolysis. (4) Renal insufficiency ICD Codes: N28.9 - Disorder of kidney and ureter, unspecified Plan: --Acute on chronic renal failure with right-sided hydronephrosis. --status post stent exchange. -- L side shows no hydronephrosis (5) UTI (urinary tract infection) ICD Codes: N39.0 - Urinary tract infection, site not specified Plan: --UA showed leukocyte esterase large with abundant WBCs and rare urine bacteria. --urine culture no growth --currently on Ceftin. Assessment This is a 51-year-old female who has a past medical history of cervical cancer diagnosed in 2005. She underwent hysterectomy as well as chemotherapy and radiation treatments. She now presents to the emergency department with right flank pain. She was found to have hydronephrosis on the right side and she has undergone stent exchange. On abdominal imaging she was found to have hepatic mets and additional imaging was obtained including CT of the chest which revealed bilateral pulmonary masses. History of DVTs. CKD. Left-sided nephrostomy tube placement. Tonsillectomy. Plan 1. Case management working on insurance 2. With kidney functioning improving she may be eligible for NOAC such as Eliquis, but without insurance this will be difficult to obtain 3. Continue supportive care; await pathology results. 4. Pt will need PT/INR monitoring after discharge 5. OK for discharge when insurance/ followup can be established Attending Statement The exam, history, and the medical decision-making described in the above note were completed with the assistance of the mid-level provider. I reviewed and agree with the findings presented. I attest that I had a [id number] encounter with the patient on the same day, and personally performed and documented my assessment and findings in the medical record Emi Daniels Mar 27, 2017 13:56 Coleman Hester MD Mar 27, 2017 22:54
[2017-03-27] MEDS ORDERED: ENOXAPARIN SODIUM 80 MG/0.8 ML SYRINGE SQ SCH (15:00)
[2017-03-27] MEDS: WARFARIN SOD 7.5 MG TAB PO SCH (17:09)
[2017-03-27] MEDS: ENOXAPARIN SODIUM 60 MG/0.6 ML SYRINGE SQ SCH (17:12)
--- NOTE | 2017-03-27 18:51 | HHI.PR ---
Subjective Remarks 51 YOAA female with Left Nephrostomy,Liver and Lung nodules Had CT guided Liver Bx No SOB Up in chair Cpmfortable Objective Vital Signs Vital Signs Date Time Temp Pulse Resp B/P (MAP) Pulse Ox O2 Delivery O2 Flow Rate FiO2 03/27/17 16:00 100.0 106 16 149/84 (105) 99 03/27/17 12:00 98.1 97 18 136/78 (97) 98 03/27/17 08:00 98.3 96 18 147/86 (106) 97 03/27/17 07:00 Room Air 03/27/17 04:00 98.7 110 16 157/94 (115) 97 03/27/17 00:00 98.5 100 16 129/82 (98) 96 03/26/17 23:47 16 03/26/17 20:00 Room Air 03/26/17 20:00 99.0 111 16 121/64 (83) 97 I/O 03/26/17 03/26/17 03/26/17 03/27/17 03/27/17 03/27/17 07:00 15:00 23:00 07:00 15:00 23:00 Intake Total 544 ml 0 ml 240 ml 240 ml Output Total 350 ml 500 ml 475 ml Balance 194 ml -500 ml 0 ml -235 ml 240 ml Intake Oral 240 ml 0 ml 240 ml 240 ml IV Total 304 ml Output Urine Total 175 ml Drainage Total 350 ml 500 ml 300 ml # Voids 3 3 3 # Bowel Movements 1 0 0 Result Diagram: 03/25/17 1756 Objective Remarks GENERAL: MBMN female,NAD SKIN: Warm and dry. HEAD: Normocephalic. EYES: No scleral icterus. No injection or drainage. NECK: Supple, trachea midline. No JVD or lymphadenopathy. CARDIOVASCULAR: Regular rate and rhythm without murmurs, gallops, or rubs. RESPIRATORY: Breath sounds equal bilaterally. No accessory muscle use. GASTROINTESTINAL: Abdomen soft, non-tender, nondistended. Left nephrostomy tube MUSCULOSKELETAL: No cyanosis, or edema. BACK: Nontender without obvious deformity. No CVA tenderness. A/P Assessment and Plan Multiple Lung nodules Liver Lesions H/O ca cx S/P Nephrostomy tube PLAN: Check Liver bx If liver bx non diagnostic, will need lung bx Await liver bx result Jose Curz Ortiz MD Mar 27, 2017 18:51
[2017-03-28] VITALS: BP 132/78; PULSE 99; RESP 17; TEMP 97.9; O2SAT 97
[2017-03-28] MEDS: ENOXAPARIN SODIUM 60 MG/0.6 ML SYRINGE SQ SCH ×2 (02:14→16:14)
[2017-03-28 04:00] VITALS: BP 129/72; PULSE 106; RESP 17; TEMP 98; O2SAT 97
[2017-03-28] MEDS: oxyCODONE/ACETAMINOPHEN 10 MG/325 MG TAB PO PRN ×3 (05:09→16:13)
[2017-03-28 07:22] LABS: HEMATOCRIT 30.6 % (35.0-46.0); MEAN CELL VOLUME 88.9 FL (80.0-100.0); MEAN CORPUSCULAR HEMOGLOBIN 29.5 PG (27.0-34.0); MEAN CORPUSCULAR HGB CONC 33.2 % (32.0-36.0); PLATELET COUNT 456 TH/MM3 (150-450); RED BLOOD COUNT 3.44 MIL/MM3 (4.00-5.30); RED CELL DISTRIBUTION WIDTH 16.4 % (11.6-17.2); REVIEW FLAG FINAL; WHITE BLOOD COUNT 9.2 TH/MM3 (4.0-11.0)
[2017-03-28 07:25] LABS: INTERNATIONAL NORMALIZED RATIO 1.6 RATIO; PROTHROMBIN TIME - PATIENT 17.7 SEC (9.8-11.6)
[2017-03-28 08:00] VITALS: BP 120/74; PULSE 93; PULSE 99; RESP 18; TEMP 98.1; O2SAT 99
[2017-03-28] MEDS: CEFUROXIME AXETIL 500 MG TAB PO SCH (08:44)
[2017-03-28] MEDS: DOCUSATE SODIUM 50 MG/SENNA 8.6 MG TAB PO SCH (08:44)
[2017-03-28] MEDS: POLYETHYLENE GLYCOL 17 GM PKG PO SCH (08:44)
[2017-03-28] MEDS: SODIUM CHLORIDE 0.9% FLUSH 10 ML FLUSH IV FLUSH SCH (08:46)
[2017-03-28 12:00] VITALS: BP 129/80; PULSE 112; RESP 18; TEMP 98.6; O2SAT 97
--- NOTE | 2017-03-28 12:37 | HHI.DS ---
Discharge Summary Admission Date Mar 15, 2017 at 15:09 Discharge Date: Mar 28, 2017 Admitting Diagnosis complicated pyelonephritis, subtherapeutic INR (1) Metastatic disease ICD Code: C79.9 - Secondary malignant neoplasm of unspecified site Diagnosis: Principal (2) Hydronephrosis, right ICD Code: N13.30 - Unspecified hydronephrosis Diagnosis: Principal (3) Pyelonephritis ICD Code: N12 - Tubulo-interstitial nephritis, not specified as acute or chronic Diagnosis: Principal (4) CKD (chronic kidney disease), stage III ICD Code: N18.3 - Chronic kidney disease, stage 3 (moderate) Diagnosis: Secondary (5) Constipation ICD Code: K59.00 - Constipation, unspecified Diagnosis: Secondary Status: Chronic (6) Anemia ICD Code: D64.9 - Anemia, unspecified Diagnosis: Secondary Status: Chronic (7) DVT (deep venous thrombosis) ICD Code: I82.409 - Acute embolism and thrombosis of unspecified deep veins of unspecified lower extremity Diagnosis: Secondary Status: Chronic (8) Renal insufficiency ICD Code: N28.9 - Disorder of kidney and ureter, unspecified Diagnosis: Principal Procedures Status post cystoscopy and right ureteral stent exchange liver bx X2 Brief History - From Admission The patient is a 51-year-old female with a past medical history of cervical cancer and left-sided nephrostomy tube placement was presenting to the hospital with ongoing subacute low back pain. The patient says that about 3 weeks ago she started to develop pain in a bandlike distribution above her buttocks. She said the pain didn't start off that severely but gradually got worse as time went by. She started by taking Tylenol to help with the pain and then eventually tried taking tramadol. She said the pain is worse when she is sitting or lying down. She says the pain generally gets better when she stands up. She has not noticed any fevers or night sweats. She has been eating well. She says that over the past couple of days she has noticed some discomfort when urinating. This morning she felt a tingling upon urination. She denied seeing any blood in her urine. She does endorse chronic constipation. She says she has nephrostomy tube has been in place since September and she gets it changed every 3 months. She said she is next due to get it changed in May. CBC/BMP: 03/28/17 0605 Significant Findings Laboratory Tests Test 03/25/17 16:34 03/25/17 17:58 03/26/17 12:25 03/27/17 04:35 Activated Partial Thromboplast Time 57.7 SEC (24.3-30.1) 58.8 SEC (24.3-30.1) 68.6 SEC (24.3-30.1) Red Blood Count 3.17 MIL/MM3 (4.00-5.30) Hemoglobin 9.0 GM/DL (11.6-15.3) Hematocrit 28.0 % (35.0-46.0) Monocytes (%) (Auto) 11.4 % (0.0-8.0) Prothrombin Time 14.8 SEC (9.8-11.6) 14.6 SEC (9.8-11.6) 14.9 SEC (9.8-11.6) Test 03/27/17 13:15 03/28/17 06:05 Activated Partial Thromboplast Time 58.3 SEC (24.3-30.1) Red Blood Count 3.44 MIL/MM3 (4.00-5.30) Hemoglobin 10.1 GM/DL (11.6-15.3) Hematocrit 30.6 % (35.0-46.0) Platelet Count 456 TH/MM3 (150-450) Prothrombin Time 17.7 SEC (9.8-11.6) Imaging Last Impressions Liver Biopsy CT 03/26/17 1530 Signed Impressions: Service Date/Time: Sunday, March 26, 2017 16:02 - CONCLUSION: Uncomplicated CT and ultrasound guided needle biopsy of mass in the left lobe of the liver, as above. Boubacar Vicente MD Liver Biopsy Ultrasound 03/26/17 0000 Signed Impressions: Service Date/Time: Sunday, March 26, 2017 16:06 - CONCLUSION: Uncomplicated CT and ultrasound guided needle biopsy of mass in the left lobe of the liver, as above. Boubacar Vicente MD Lower Extremity Ultrasound 03/25/17 0000 Signed Impressions: Service Date/Time: Saturday, March 25, 2017 07:42 - CONCLUSION: 1. No evidence of venous thrombosis of the right lower extremity. 2. As seen on prior CT, there is right inguinal lymphadenopathy that appears metastatic. David Rodriguez MD Chest CT 03/17/17 0000 Signed Impressions: Service Date/Time: Saturday, March 18, 2017 00:17 - CONCLUSION: 1. Widespread pulmonary metastatic disease as above. Syd Bartholomew MD Abdomen/Pelvis CT 03/16/17 0000 Signed Impressions: Service Date/Time: Thursday, March 16, 2017 21:59 - CONCLUSION: 1. Metastatic disease involving the visualized lung bases, liver, and inguinal lymph nodes. 2. Double J stent on the right is in good position. Despite this there is significant hydronephrosis. 3. Left-sided nephrostomy tube in good position. No hydronephrosis on this side. Yifan De La Rosa Jr., MD Lumbar Spine X-Ray 03/15/17 0000 Signed Impressions: Service Date/Time: March 15:15 - CONCLUSION: 1. Intact lumbar spine without evidence of acute process. 2. Right-sided intraureteral stent and left-sided nephrostomy tube. 3. No evidence of nephrolithiasis. Scott Winter MD Lumbar Spine MRI 03/15/17 0000 Signed Impressions: Service Date/Time: March 19:28 - CONCLUSION: 1. No acute abnormality. 2. Hydronephrosis involving the right kidney despite a double-J stent. 3. Left nephrostomy without hydronephrosis. Yifan De La Rosa Jr., MD PE at Discharge GENERAL: in NAD CARDIOVASCULAR: Regular rate and rhythm without murmurs, gallops, or rubs. RESPIRATORY: Breath sounds equal bilaterally. No accessory muscle use. GASTROINTESTINAL: Abdomen soft, non-tender, nondistended. MUSCULOSKELETAL: No cyanosis, or edema. no B/L calf pain. B/L thighs seems to be symmetrical no TTP. BACK: Nontender without obvious deformity. No CVA tenderness. Pt update on day of discharge Follow-up for suspicion for metastatic disease and chronic anticoagulation management Patient has no complaints. She is very anxious to go home for Thanksgiving. I spoke to patient extensively in regards to getting follow-up for INR. Patient agreed to stay in communication with the hospitalist group for INR follow-up. Patient told that she will need to go to the [facility] to have INR rechecked on Sunday so that we can adjust her medication based on the results. Patient told that she must call us Sunday afternoon if she does not hear anything from us. Patient stated that she has been relatively stable on the current dose of Coumadin and that she has not really need any changes in terms of her Coumadin. She also stated that she's been on Lovenox multiple times and that she knows how to administer Lovenox herself. Patient also have Lovenox teaching by the nurse yesterday. Otherwise no acute events overnight. Dealt with case management Courtney. Hospital Course 51-year-old female with past medical history significant for cervical cancer and left-sided nephrostomy tube placement admitted to the hospital with ongoing low back pain found to have right hydronephrosis and UTI/pyelonephritis. Right hydronephrosis History of right ureteral stent Hx of left sided nephrostomy tube, scheduled to be changed every 3 months, last changed 1 month ago - CT abd/pelvis revealed significant right sided hydronephrosis - Urology consulted and patient had a cystoscopy with right ureteral stent exchange 03/18/17 UTI/pyelonephritis - Patient was treated empirically with cefepime pending urine cultures. Infectious disease was consulted to assist with management. - initial UCX 03/15 showing no growth, f/u UCX 03/19 growing <10,000 gram positive fco - Treated with IV Cefepime initially followed by Ceftin 500mg po BID x 7 days , stop date 03/28/17. Stable from ID standpoint, signed off 03/24 History of cervical cancer status post hysterectomy, chemotherapy and radiation 2005 Probable metastatic disease - CT abd/pelvis revealed metastatic disease involving the visualized lung bases, liver and inguinal lymph nodes - CT of the chest showed multiple bilateral pulmonary nodules characteristic of metastatic disease largest nodule measuring 2.4 cm in the right lower lobe. - Hem/onc was consulted and following. s/p liver biopsy 03/22 with negative pathology. -Liver biopsy was repeated on 03/26. [employer]/oncologist stated okay to discharge patient and to follow-up with liver biopsy. If the liver biopsy is negative patient will need lung biopsy. Environment Coordinator was consulted in regards to this. -Patient was educated extensively about the management since that there was concerns for metastatic cancer. She stated that she understood and will follow- up as directed. DVT, RLE - Patient was initially on Coumadin due to history of DVT. She was taken off of Coumadin put on Lovenox due to multiple procedures. Initially she was being bridged to Coumadin on a heparin but then later oncologist stated okay to use Lovenox for bridging. -Goal INR is between 2-3. Education given. Home medication resumed. At the time of discharge her INR is 1.6. Patient told that we'll need to repeat INR on Sunday of this week which is 2 days later and adjust dose accordingly. Once she is therapeutic can discontinue Lovenox. swelling of right thigh, resolved. -US Doppler negative for DVT negative. Low back pain Bilateral foot drop - ongoing off and on for past several weeks - MRI lumbar spine shows no acute abnormality - pain management with bowel regimen - K thermia - Continue participation with PT. Order bilateral AFOs. CKD, stage 3 - acute on chronic renal failure secondary to right sided hydronephrosis - creatinine 1.17 03/22 - avoid nephrotoxic agents - monitor kidney function intermittently Normocytic anemia - no signs of active bleeding. - hgb 7.5, status post transfusion with good hemoglobin response to 9.5 - iron studies c/w ACD - Hem following - hgb stable. Pt Condition on Discharge: Good Discharge Disposition: Discharge Home Discharge Time: > 30 minutes Discharge Instructions DIET: Follow Instructions for: As Tolerated, No Restrictions Activities you can perform: Regular-No Restrictions Follow up Referrals: Oncology/Hematology - 1 Week with Coleman Hester MD PCP Follow-up - 1 Week Urology - 2 Weeks with Jimbo Rondon MD New Orders: PT/INR - 03/30/17 @ [facility] New Medications: Enoxaparin Inj (Lovenox Inj) 60 Mg/0.6 Ml Syr 60 MG SQ BID for Blood Clot Prevention, #20 SYRINGE 0 Refills Cefuroxime (Cefuroxime) 500 Mg Tab 500 MG PO Q12HR for pneumonia, #3 TAB 0 Refills Oxycodone HCl/Acetaminophen (Oxycodone-Acetaminophen 10-325) 10 Mg-325 Mg Tablet 1 TAB PO Q6H PRN for PAIN SCALE 6 TO 10, #30 TAB Sennosides-Docusate Sodium (Gnp Senna Plus 8.6-50 mg) 8.6 Mg-50 Mg Tab 1 TAB PO BID for Constipation, #62 TAB Continued Medications: Warfarin (Coumadin) 5 Mg Tab 5 MG PO EVERY OTHER DAY for Blood Clot Prevention, #30 TAB 0 Refills Warfarin (Coumadin) 7.5 Mg Tab 7.5 MG PO EVERY OTHER DAY for Prevent Blood Clot, #30 TAB 0 Refills Mona Ordonez MD Mar 28, 2017 12:37
--- NOTE | 2017-03-28 14:26 | PD.ONC.PN ---
Subjective Subjective Remarks Afebrile Still with pain to RUQ Happy to be going home today Objective Data Date Time Temp Pulse Resp B/P (MAP) Pulse Ox O2 Delivery O2 Flow Rate FiO2 03/28/17 12:00 98.6 112 18 129/80 (96) 97 03/28/17 08:00 98.1 99 18 120/74 (89) 99 03/28/17 08:00 93 03/28/17 07:00 Room Air 03/28/17 04:00 98.0 106 17 129/72 (91) 97 03/28/17 00:00 97.9 99 17 132/78 (96) 97 03/27/17 20:15 Room Air 03/27/17 20:06 111 03/27/17 20:00 98.5 108 18 132/70 (90) 97 03/27/17 16:00 100.0 106 16 149/84 (105) 99 03/28/17 03/28/17 03/28/17 07:00 15:00 23:00 Output Total 50 ml Balance -50 ml Result Diagram: 03/28/17 0605 Laboratory Results Laboratory Tests Test 03/28/17 06:05 White Blood Count 9.2 TH/MM3 Red Blood Count 3.44 MIL/MM3 Hemoglobin 10.1 GM/DL Hematocrit 30.6 % Mean Corpuscular Volume 88.9 FL Mean Corpuscular Hemoglobin 29.5 PG Mean Corpuscular Hemoglobin Concent 33.2 % Red Cell Distribution Width 16.4 % Platelet Count 456 TH/MM3 Mean Platelet Volume 8.2 FL Prothrombin Time 17.7 SEC Prothromb Time International Ratio 1.6 RATIO Administered Medications Medications (Trade) Dose Ordered Sig/Erendira Route PRN Reason Start Time Stop Time Status Last Admin Dose Admin Sodium Chloride (NS Flush) 2 ml UNSCH PRN IV FLUSH FLUSH AFTER USING IV ACCESS 03/15/17 15:00 03/19/17 15:46 Sodium Chloride (NS Flush) 2 ml BID IV FLUSH 03/15/17 21:00 03/28/17 08:46 Senna/Docusate Sodium (Julieta-Colace) 1 tab BID PO 03/15/17 21:00 03/28/17 08:44 Polyethylene Glycol (Miralax) 17 gm DAILY PO 03/15/17 16:00 03/28/17 08:44 Oxycodone/ Acetaminophen (Percocet 5-325 Mg) 1 tab Q6H PRN PO PAIN SCALE 3 TO 5 03/16/17 11:45 03/22/17 00:38 Oxycodone/ Acetaminophen (Percocet 10-325 Mg) 1 tab Q6H PRN PO PAIN SCALE 6 TO 10 03/16/17 11:45 03/28/17 12:17 Cefuroxime Axetil (Ceftin) 500 mg Q12HR PO 03/21/17 21:00 03/28/17 23:00 03/28/17 08:44 Warfarin Sodium (Coumadin) 5 mg MoWeFr@16 PO 03/23/17 16:00 03/23/17 16:33 Warfarin Sodium (Coumadin) 7.5 mg SuTuThSa@16 PO 03/24/17 16:00 03/27/17 17:09 Enoxaparin Sodium (Lovenox Inj) 60 mg Q12H SQ 03/27/17 15:00 03/28/17 02:14 Objective Remarks GENERAL: Middle aged female lying in bed in no acute distress SKIN: Warm and dry. Left-sided nephrostomy tube draining clear yellow urine HEAD: Normocephalic. EYES: No injection or drainage. NECK: Supple, trachea midline. CARDIOVASCULAR: Regular rate and rhythm. RESPIRATORY: Breath sounds equal bilaterally. No accessory muscle use. GASTROINTESTINAL: Abdomen soft, non-tender, nondistended. EXTREMITIES: No cyanosis. Braces to bilateral lower extremities NEUROLOGICAL: Awake and alert, normal speech. Moving all extremities. Assessment/Plan Problem List: (1) Metastatic disease ICD Codes: C79.9 - Secondary malignant neoplasm of unspecified site Plan: --Bilateral pulmonary masses with multiple hepatic lesions with a history of cervical cancer. --These lesions are highly suspicious for metastatic disease. --Metastatic cervical cancer versus another primary malignancy is suspected. --s/p liver biopsy 03/22-->pathology showed only liver parenchyma (2) DVT (deep venous thrombosis) ICD Codes: I82.409 - Acute embolism and thrombosis of unspecified deep veins of unspecified lower extremity Status: Chronic Plan: --on Lovenox twice a day --Plan to bridge to Coumadin -- Has an appt on Sunday at [facility] for INR check. (3) Normocytic anemia ICD Codes: D64.9 - Anemia, unspecified Plan: -- Normocytic anemia with a hemoglobin of 8.5. --Iron studies more consistent with anemia of chronic disease--ferritin is 574 --Does not appear to be any underlying hemolysis. (4) Renal insufficiency ICD Codes: N28.9 - Disorder of kidney and ureter, unspecified Plan: --Acute on chronic renal failure with right-sided hydronephrosis. --status post stent exchange. -- L side shows no hydronephrosis (5) UTI (urinary tract infection) ICD Codes: N39.0 - Urinary tract infection, site not specified Plan: --UA showed leukocyte esterase large with abundant WBCs and rare urine bacteria. --urine culture no growth --currently on Ceftin. Assessment This is a 51-year-old female who has a past medical history of cervical cancer diagnosed in 2005. She underwent hysterectomy as well as chemotherapy and radiation treatments. She now presents to the emergency department with right flank pain. She was found to have hydronephrosis on the right side and she has undergone stent exchange. On abdominal imaging she was found to have hepatic mets and additional imaging was obtained including CT of the chest which revealed bilateral pulmonary masses. History of DVTs. CKD. Left-sided nephrostomy tube placement. Tonsillectomy. Plan 1. Followup planned for the [facility] outpatient. 2. She has an appt to get her labs checked on Sunday for INR; Dr Park to follow per CM. 3. Liver biopsy pending. 4. Discussed with NPR, pt has a followup appt on 04/[address] Hester. Attending Statement The exam, history, and the medical decision-making described in the above note were completed with the assistance of the mid-level provider. I reviewed and agree with the findings presented. I attest that I had a [id number] encounter with the patient on the same day, and personally performed and documented my assessment and findings in the medical record Emi Daniels Mar 28, 2017 14:26 Coleman Hester MD Mar 28, 2017 23:47
[2017-03-28 16:00] VITALS: BP 119/76; PULSE 104; RESP 20; TEMP 98.4; O2SAT 97
[2017-03-28] MEDS: WARFARIN SOD 5 MG TAB PO SCH (16:13)
== END 2017-03-28 16:32 | disposition home health service (06) | DRG 690 ==
LOC: NEPC 11:00 → NEDA 13:55 → OBSVTOIN 15:09 → N07A 17:51 → HCIN 03-20 09:23 → N04B 03-23 22:36
PROVIDERS: ADMIT Family Medicine; ATTEND Family Medicine
PROC: 0T768DZ Dilation of Right Ureter with Intraluminal Device, Via Natural or Artificial Opening Endoscopic (ICD-10-PCS; 2017-03-18)
PROC: 0TP98DZ Removal of Intraluminal Device from Ureter, Via Natural or Artificial Opening Endoscopic (ICD-10-PCS; principal; 2017-03-18 08:13)
PROC: 30233N1 Transfusion of Nonautologous Red Blood Cells into Peripheral Vein, Percutaneous Approach (ICD-10-PCS; 2017-03-21)
PROC: 0FB13ZX Excision of Right Lobe Liver, Percutaneous Approach, Diagnostic (ICD-10-PCS; 2017-03-22)
PROC: 0FB23ZX Excision of Left Lobe Liver, Percutaneous Approach, Diagnostic (ICD-10-PCS; 2017-03-26)
DX: N13.6 Pyonephrosis (principal); C78.01 Secondary malignant neoplasm of right lung; N17.9 Acute kidney failure, unspecified; E46 Unspecified protein-calorie malnutrition; C78.02 Secondary malignant neoplasm of left lung; N18.3 Chronic kidney disease, stage 3 (moderate); C78.7 Secondary malignant neoplasm of liver and intrahepatic bile duct; D63.8 Anemia in other chronic diseases classified elsewhere; N32.0 Bladder-neck obstruction; K59.09 Other constipation; M21.371 Foot drop, right foot; M21.372 Foot drop, left foot; G89.29 Other chronic pain; R22.9 Localized swelling, mass and lump, unspecified; Z85.41 Personal history of malignant neoplasm of cervix uteri; Z92.21 Personal history of antineoplastic chemotherapy; Z92.3 Personal history of irradiation; Z86.718 Personal history of other venous thrombosis and embolism; Z68.22 Body mass index [BMI] 22.0-22.9, adult; Z86.711 Personal history of pulmonary embolism; Z79.01 Long term (current) use of anticoagulants; Z88.1 Allergy status to other antibiotic agents; Z88.0 Allergy status to penicillin
CPT/HCPCS: 36430; 47000; 71250; 72110; 72148; 74176; 76937; 76942; 77012; 80048; 80053; 81001; 82105; 82378; 82728; 83010; 83036; 83540; 83550; 83615; 83735; 84100; 84439; 84443; 84702; 85025; 85027; 85610; 85652; 85730; 86140; 86300; 86301; 86304; 86850; 86900; 86901; 86920; 87086; 88307; 88341; 93005; 93971; 96361; 96365; 96375; C1769; J0692; J1644; J1650; J2250; J2270; J2405; J3010; J7030; L1960; P9016; Q0163; Q9963

== ENCOUNTER → 2017-03-30 | Outpatient (CLI) | payer SELFPAY ==
[~2017-03-30] MED LIST changes: +CEFU1TAB20 PO; +COUM5TAB PO; +COUM7.5T PO; +ENOX60P SQ; +ENOX80P SQ; -HYDR-3533 PO; +OXYC1TAB36 PO; +PERI PO
[2017-03-30 11:53] LABS: INTERNATIONAL NORMALIZED RATIO 1.6 RATIO; PROTHROMBIN TIME - PATIENT 17.8 SEC (9.8-11.6)
== END ==
LOC: CLAB 11:15
PROVIDERS: ATTEND Family Medicine
DX: I82.409 Acute embolism and thrombosis of unspecified deep veins of unspecified lower extremity (principal)
CPT/HCPCS: 36415; 85610

== ENCOUNTER 2017-04-02 03:03 | Emergency (ER) | payer MEDICAID ==
[~2017-04-02] VITALS: Ht 170.2 cm; Wt 65.0 kg
[~2017-04-02 03:03] MED LIST changes: -ENOX80P SQ
[2017-04-02 03:06] VITALS: BP 171/92; PULSE 110; RESP 24; TEMP 98.9; O2SAT 99
--- NOTE | 2017-04-02 03:28 | PD ---
HPI Chief Complaint: Edema Time Seen by Provider: 03:22 Travel History International Travel<30 days: No Contact w/Intl Traveler<30days: No Traveled to known affect area: No History of Present Illness HPI The patient is a 51 year old female who presents to the [facility] emergency department with a history of 3 concerns. # 1 pain in her back and right side pain that became worse yesterday and unrelieved with her usual dose of oxycodone. #2 She is on blood thinners and now has some spotting from her vagina. #3 swelling in the left leg that began 2 days ago. She reports having a history of blood clots in her legs. She is on Lovenox once a day while bridging to a therapeutic dose of Coumadin. She last had an INR done on Sunday, 2 days ago. She is on Lovenox 90 once a day. She is also on coumadin 5 mg q day. The patient's past medical history is significant for cervical cancer with metastasis. She was recently admitted to the hospital and discharged on . She reports that she was planning to schedule an appointment with her new oncologist, Dr. Peña this week. She reports that she recently moved to the area. The patient reports that she has undergone chemotherapy and radiation therapy for her metastatic cervical cancer. She also has a nephrostomy tube in place on the left side related to ureteral obstruction that was originally placed in September 2016. On review of systems otherwise, the patient denies having any fevers, cough, congestion, neck pain, chest pain, shortness of breath, vomiting, diarrhea, urinary symptoms, or neurologic symptoms. LMP hysterectomy in 2014. [facility] Past Medical History Narrative Medical The patient's past medical history is significant for cervical cancer with metastasis status post hysterectomy, chemotherapy, and radiation therapy, history of prior DVT, history of chronic renal insufficiency, history of hydronephrosis on the left side status post nephrostomy tube placement reportedly in September 2016. Recently moved here from [place] 3 weeks ago. Cancer: Yes (CERVICAL ) Diabetes: No Diminished Hearing: No Deep Vein Thrombosis: Yes Endocrine: No Genitourinary: Yes (blocked l ureter l neph tube in place stent to right ureter ) Hypertension: Yes Immune Disorder: No Psychiatric: No Immunizations Current: Yes Tetanus Vaccination: < 5 Years Influenza Vaccination: No ?: Unknown : 5 Para: 5 Tubal Ligation: Yes Past Surgical History Narrative Surgical The patient's past surgical history is significant for tonsillectomy, hysterectomy, Llosaj-g-Nnjx placement which she reports is not functional, history of left-sided nephrostomy tube placement. Abdominal Surgery: Yes (HERNIA REPAIR) Hysterectomy: Yes Tonsillectomy: Yes Other Surgery: Yes (NEPHROSTOMY TUBE IN PLACE) Social History Alcohol Use: No Tobacco Use: No Substance Use: No Allergies-Medications (Allergen,Severity, Reaction): Coded Allergies: levofloxacin (Unverified Allergy, Unknown, 04/02/17) metronidazole (Unverified Allergy, Unknown, 04/02/17) penicillin G (Unverified Allergy, Unknown, 04/02/17) Reported Meds & Prescriptions Reported Meds & Active Scripts Active Gnp Senna Plus 8.6-50 mg (Sennosides-Docusate Sodium) 8.6 Mg-50 Mg Tab 1 Tab PO BID Oxycodone-Acetaminophen 10-325 (Oxycodone HCl/Acetaminophen) 10 Mg-325 Mg Tablet 1 Tab PO Q6H PRN Reported Lovenox Inj (Enoxaparin Sodium) 80 mg/0.8 ML Syr 90 Mg SQ DAILY Coumadin (Warfarin) 5 Mg Tab 5 Mg PO EVERY OTHER DAY Review of Systems Except as stated in HPI: all other systems reviewed are Neg General / Constitutional: No: Fever Eyes: No: Visual changes HENT: No: Headaches Cardiovascular: Positive: Edema (right lower external), No: Chest Pain or Discomfort Respiratory: No: Shortness of Breath Gastrointestinal: Positive: Nausea, No: Vomiting, Diarrhea, Abdominal Pain Genitourinary: Positive: Vaginal Bleeding (spotting), No: Urgency, Frequency, Dysuria Musculoskeletal: Positive: Myalgias, Pain Skin: No Rash Neurologic: No: Weakness, Focal Abnormalities, Change in Mentation, Slurred Speech, Sensory Disturbance Psychiatric: No: Depression Endocrine: No: Polydipsia Hematologic/Lymphatic: No: Easy Bruising Physical Exam Narrative General: The patient is a well-developed well-nourished female, uncomfortable appearing on arrival, however otherwise in no acute distress. Head and Neck exam: Head is normocephalic atraumatic. Eyes: EOMI, pupils are equal round and reactive to light. Nose: Midline septum with pink mucous membranes Mouth: Dentition unremarkable. Moist mucus membranes. Posterior oropharynx is not erythematous. No tonsillar hypertrophy. Uvula midline. Airway patent. Neck: No palpable lymphadenopathy. No nuchal rigidity. No thyromegaly. Cardiovascular: Regular rate and rhythm without murmurs, gallops, or rubs. Lungs: Clear to auscultation bilaterally. No wheezes, rhonchi, or rales. Abdomen: Soft, without tenderness to palpation in all 4 quadrants of the abdomen. No guarding, rebound, or rigidity. Normal bowel sounds are audible. No tenderness on palpation of McBurney's point. Extremities: No clubbing, cyanosis, or edema. 2+ pulses in all 4 extremities. Back: No spinous process tenderness to palpation. Right-sided CVA tenderness on palpation. The patient on examination of the left side of her back is noted to have a nephrostomy tube in place without any signs of infection. Clean, dry, and intact bandages in place. There is no surrounding erythema or drainage. Neurologic Exam: Grossly nonfocal. Skin Exam: No rash noted. Intact skin that is warm and dry. Data Data Last Documented VS Vital Signs Date Time Temp Pulse Resp B/P (MAP) Pulse Ox O2 Delivery O2 Flow Rate FiO2 04/02/17 06:51 04/02/17 04:48 96 Room Air 04/02/17 03:06 98.9 110 24 Orders Orders Complete Blood Count With Diff (04/02/17 03:42) Comprehensive Metabolic Panel (04/02/17 03:42) Prothrombin Time / Inr (Pt) (04/02/17 03:42) Act Partial Throm Time (Ptt) (04/02/17 03:42) Lipase (04/02/17 03:42) Urinalysis - C+S If Indicated (04/02/17 03:42) Magnesium (Mg) (04/02/17 03:42) Iv Access Insert/Monitor (04/02/17 03:42) Ecg Monitoring (04/02/17 03:42) Oximetry (04/02/17 03:42) Sodium Chlor 0.9% 1000 Ml Inj (Ns 1000 M (04/02/17 03:45) Ondansetron Inj (Zofran Inj) (04/02/17 03:45) Morphine Inj (Morphine Inj) (04/02/17 03:45) Chest, Single Ap (04/02/17 03:42) Us Leg Venous Doppler (04/02/17 03:42) Urine Culture (04/02/17 03:40) Ed Discharge Order (04/02/17 06:08) Labs Laboratory Tests Test 04/02/17 03:40 White Blood Count 8.7 TH/MM3 Red Blood Count 3.65 MIL/MM3 Hemoglobin 10.6 GM/DL Hematocrit 32.4 % Mean Corpuscular Volume 88.8 FL Mean Corpuscular Hemoglobin 29.0 PG Mean Corpuscular Hemoglobin Concent 32.7 % Red Cell Distribution Width 16.5 % Platelet Count 473 TH/MM3 Mean Platelet Volume 8.1 FL Neutrophils (%) (Auto) 75.7 % Lymphocytes (%) (Auto) 14.5 % Monocytes (%) (Auto) 8.8 % Eosinophils (%) (Auto) 0.3 % Basophils (%) (Auto) 0.7 % Neutrophils # (Auto) 6.6 TH/MM3 Lymphocytes # (Auto) 1.3 TH/MM3 Monocytes # (Auto) 0.8 TH/MM3 Eosinophils # (Auto) 0.0 TH/MM3 Basophils # (Auto) 0.1 TH/MM3 CBC Comment DIFF FINAL Differential Comment Prothrombin Time 14.7 SEC Prothromb Time International Ratio 1.3 RATIO Activated Partial Thromboplast Time 36.5 SEC Urine Color YELLOW Urine Turbidity CLOUDY Urine pH 5.5 Urine Specific [place] 1.019 Urine Protein 30 mg/dL Urine Glucose (UA) NEG mg/dL Urine Ketones TRACE mg/dL Urine Occult Blood SMALL Urine Nitrite NEG Urine Bilirubin NEG Urine Urobilinogen LESS THAN 2.0 MG/DL Urine Leukocyte Esterase MOD Urine RBC 33 /hpf Urine WBC 16 /hpf Urine Uric Acid Crystals RARE /hpf Urine Amorphous Sediment FEW Urine Bacteria OCC /hpf Urine Hyaline Casts 2 /lpf Urine Mucus FEW /lpf Microscopic Urinalysis Comment CULTURE INDICATED Blood Urea Nitrogen 19 MG/DL Creatinine 1.21 MG/DL Random Glucose 90 MG/DL Total Protein 9.0 GM/DL Albumin 2.7 GM/DL Calcium Level 9.8 MG/DL Magnesium Level 1.4 MG/DL Alkaline Phosphatase 122 U/L Aspartate Amino Transf (AST/SGOT) 45 U/L Alanine Aminotransferase (ALT/SGPT) 21 U/L Total Bilirubin 0.5 MG/DL Sodium Level 134 MEQ/L Potassium Level 4.2 MEQ/L Chloride Level 100 MEQ/L Carbon Dioxide Level 24.5 MEQ/L Anion Gap 10 MEQ/L Estimat Glomerular Filtration Rate 57 ML/MIN Lipase 64 U/L [facility] Medical Decision Making Medical Screen Exam Complete: Yes Emergency Medical Condition: Yes Medical Record Reviewed: Yes Interpretation(s) Last Impressions Lower Extremity Ultrasound 04/02/17341 Signed Impressions: Service Date/Time: Sunday, April 02, 2017 04:32 - CONCLUSION: 1. No DVT. 2. Right inguinal adenopathy. David Chin MD Chest X-Ray 04/02/17341 Signed Impressions: Service Date/Time: Sunday, April 02, 2017 04:14 - CONCLUSION: Right base focal consolidation or atelectasis. David Chin MD Differential Diagnosis DVT, versus lymphedema, versus pyelonephritis, versus back pain related to metastasis, versus symptomatic anemia, versus supratherapeutic INR Narrative Course During the course of the patients emergency department visit, the patients history, examination, and differential diagnosis were reviewed with the patient. The patient was placed on a teletypesetter monitor with oximetry and frequent blood pressure monitoring. The patient had IV access obtained and blood work sent for analysis. The patient was initially provided normal saline 1 L IV fluid bolus, morphine 4 mg IV for pain, Zofran 4 mg IV for nausea. On reexamination the patient reportedly was feeling improved and was resting comfortably. The patients laboratory studies were reviewed and remarkable for a white count of 8.7, hemoglobin 10.6, platelets 473 with 75.7 neutrophils 8.8 monocytes. CMP is remarkable for sodium of 134, BUN 19, creatinine 1.21 which is similar compared to previously, magnesium 1.4, AST 45, alkaline phosphatase 122, albumin 2.7, lipase 64, PT 14.7, INR 1.3, PTT 36.5, urinalysis shows moderate leukocyte esterase, 33 RBCs, WBCs 16, occasional bacteria, culture indicated. The urinalysis is improved compared to previous urinalysis done during her last admission which grew out only contaminant. Antibiotics at this point was held pending culture. Radiology studies were reviewed and remarkable for a right base atelectasis. I spoke to regarding this patient's case. He agrees that close follow- up with is prudent. He recommends that the patient call the office this morning for an appointment for follow-up in the next 24 hours. He agreed with the plan for the patient to increase her pain medication regimen. The patient will continue on Lovenox while she is bridging her Coumadin to a therapeutic INR. She is instructed that if she develops any worsening vaginal bleeding or develops any lightheaded sensation, chest pain, shortness of breath , she should report back immediately to the emergency department. The patient is resting comfortably and feels better, is alert and in no distress. The patients results and examination findings were discussed with the patient. The repeat examination is unremarkable and benign. The history, exam, diagnostic testing, and current condition do not suggest any significant pathology to warrant further testing, continued ED treatment, admission, or surgical evaluation at this point. The vital signs have been stable. The patient does not have uncontrollable pain, intractable vomiting, or other significant symptoms. The patient's condition is stable and appropriate for discharge. The patient will pursue further outpatient evaluation with a primary care physician or other designated or consulting physician as indicated in the discharge instructions. The patient expressed understanding and was agreeable with this plan. Physician Communication Physician Communication I spoke to Dr. James at 6:21AM regarding this patient's case. He is covering for the patient's oncologist. We did review the patient's history, laboratory studies, examination findings, and imaging findings from this emergency department visit. He was agreeable with the plan for the patient to increase her pain medication dose and follow-up with Dr. Hester's office today for an appointment within the next day. Diagnosis Primary Impression: Low back pain Qualified Codes: M54.5 - Low back pain; G89.29 - Other chronic pain Additional Impressions: Metastasis from cervical cancer Edema of right lower extremity Referrals: Coleman Hester MD 1 day Oncologist Patient Instructions: Back Pain (ED), General Instructions, Leg Edema (ED) Additional Instructions: The patient is instructed that she can take 1-2 tablets every 6 hours of the oxycodone prescription that she was previously given. She is instructed regarding the importance of close follow-up with her oncologist. She is instructed to call her oncologist, Dr. Peña this morning for an appointment for follow-up in the 1-2 days. Med/Other Pt SpecificInfo: Existing Med Changed Disposition: DISCHARGE HOME Condition: Stable Odalys Borrego MD Apr 02, 2017 03:28
[2017-04-02] MEDS ORDERED: ENOX80P SQ (03:41)
[2017-04-02] MEDS ORDERED: MORPHINE SULFATE 4 MG/ML INJ IV PUSH ONE (03:45)
[2017-04-02] MEDS ORDERED: SODIUM CHLOR 0.9% 1000 ML INJ 1,000 ML IV ONE (03:45)
[2017-04-02] MEDS ORDERED: ONDANSETRON HCL 4 MG/2 ML VIAL IV ONE (03:45)
[2017-04-02 04:12] LABS: AUTOMATED NEUTROPHIL # 6.6 TH/MM3 (1.8-7.7); BASOPHIL # 0.1 TH/MM3 (0-0.2); BASOPHIL % 0.7 % (0.0-2.0); EOSINOPHIL % 0.3 % (0.0-4.0); HEMATOCRIT 32.4 % (35.0-46.0); HEMO FLAGS DIFF FINAL; LYMPH % 14.5 % (9.0-44.0); LYMPHOCYTE # 1.3 TH/MM3 (1.0-4.8); MEAN CELL VOLUME 88.8 FL (80.0-100.0); MEAN CORPUSCULAR HGB CONC 32.7 % (32.0-36.0); MONO % 8.8 % (0.0-8.0); NEUT % 75.7 % (16.0-70.0); PLATELET COUNT 473 TH/MM3 (150-450); RED BLOOD COUNT 3.65 MIL/MM3 (4.00-5.30); RED CELL DISTRIBUTION WIDTH 16.5 % (11.6-17.2); WHITE BLOOD COUNT 8.7 TH/MM3 (4.0-11.0)
[2017-04-02 04:13] LABS: BACTERIA, URINE OCC /hpf; BLOOD, URINE SMALL (NEG); COMMENT (UR) CULTURE INDICATED; CULTURE IF INDICATED CULTURE INDICATED; GLUCOSE,URINE NEG (NEG); HYALINE CAST, URINE 2 /lpf (RARE); KETONE, URINE TRACE mg/dL (NEG); MUCUS URINE FEW /lpf (OCC); NITRITE,URINE NEG (NEG); PH, URINE 5.5 (5.0-8.5); URIC ACID CRYSTALS, URINE RARE /hpf; URINE COLOR YELLOW (YELLW/STRAW)
[2017-04-02 04:27] LABS: APTT (PATIENT) 36.5 SEC (24.3-30.1); INTERNATIONAL NORMALIZED RATIO 1.3 RATIO; PROTHROMBIN TIME - PATIENT 14.7 SEC (9.8-11.6)
[2017-04-02 04:28] LABS: ALKALINE PHOSPHATASE 122 U/L (45-117); TOTAL BILIRUBIN ADULT 0.5 MG/DL (0.2-1.0)
[2017-04-02 04:29] LABS: ALT (GPT) 21 U/L (10-53); ANION GAP 10 MEQ/L (5-15); AST (GOT) 45 U/L (15-37); BICARBONATE 24.5 MEQ/L (21.0-32.0); BLOOD UREA NITROGEN 19 MG/DL (7-18); CHLORIDE 100 MEQ/L (98-107); GLOMERULAR FILTRATION RATE 57 ML/MIN (>89); MAGNESIUM 1.4 MG/DL (1.5-2.5); POTASSIUM 4.2 MEQ/L (3.5-5.1); SODIUM (NA) 134 MEQ/L (136-145)
[2017-04-02 04:48] VITALS: O2SAT 96
--- NOTE | 2017-04-02 04:57 | RADRPT ---
EXAM DATE/TIME: 04/02/2017 04:14 [facility] COMPARISON: CHEST SINGLE AP, June 19, 2016, 21:15. INDICATIONS : Right leg swelling and right side back pain MEDICAL HISTORY : Hypertension. DVT, Cervical cancer SURGICAL HISTORY : Hysterectomy. Nephrostomy tube ENCOUNTER: Initial ACUITY: 3 days PAIN SCORE: 7/10 LOCATION: Bilateral chest FINDINGS: There is a CT compatible Wmkymb-e-Iarf in place from the left subclavian approach. The heart size is normal. There is increased density at the right base. The left lung is clear. There is a left nephros yelitza tube in place. The patient is mildly rotated towards the right. CONCLUSION: Right base focal consolidation or atelectasis. David Chin MD on April 02, 2017 at 4:53 Board Certified Radiologist. This report was verified electronically.
--- NOTE | 2017-04-02 05:06 | RADRPT ---
EXAM DATE/TIME: 04/02/2017 04:32 [facility] COMPARISON: US LEG RIGHT VENOUS DOPPLER, March 25, 2017, 7:42. INDICATIONS : Right leg swelling. MEDICAL HISTORY : Hypertension. Glasses. Deep vein thrombosis. Cervical cancer. SURGICAL HISTORY : Tonsillectomy. Hysterectomy. Tubal ligation. Hernia repair. Left rotator cuff surgery. Nephrostomy tu be in place. ENCOUNTER: Subsequent ACUITY: 1 month PAIN SCORE: 4/10 LOCATION: Right leg. TECHNIQUE: Venous ultrasound of the leg was performed from the inguinal ligament to the proximal calf. Real-lars e, color Doppler and spectral tracing, compression and augmentation techniques were used. FINDINGS: There is normal compressibility of the deep venous system from the mid thigh to the proximal calf. T he common femoral vein is not fully compressible due to the patient tensing of one this area is compr essed. Normal flow is seen on the color images in this region. No echogenic clot is seen in the lumen of the common femoral, femoral, popliteal, and posterior tibial veins. There is a normal response o f the venous system to proximal and distal augmentation and respiration. There are enlarged lymph nodes in the right inguinal region measuring up to 4.1 cm. These appear path ologic without a well-defined fatty hilum. CONCLUSION: 1. No DVT. 2. Right inguinal adenopathy. David Chin MD on April 02, 2017 at 5:02 Board Certified Radiologist. This report was verified electronically.
== END 2017-04-02 09:02 | disposition home or self-care (01) ==
LOC: NEPC 03:03
DX: M54.5 Low back pain (principal); R60.0 Localized edema; C53.9 Malignant neoplasm of cervix uteri, unspecified; R11.0 Nausea; I12.9 Hypertensive chronic kidney disease with stage 1 through stage 4 chronic kidney disease, or unspecified chronic kidney disease; N18.9 Chronic kidney disease, unspecified; Z79.01 Long term (current) use of anticoagulants; Z86.718 Personal history of other venous thrombosis and embolism; Z88.0 Allergy status to penicillin
CPT/HCPCS: 71010; 80053; 81001; 83690; 83735; 85025; 85610; 85730; 87086; 93971; 96361; 96374; 96375; 99285; J2270; J2405; J7030

== ENCOUNTER → 2017-04-05 | Outpatient (CLI) | payer SELFPAY ==
[~2017-04-05] MED LIST changes: -CEFU1TAB20 PO; -COUM7.5T PO; -ENOX60P SQ; +ENOX80P SQ; +FENT25DI T-DERMAL; +LACT10SO PO; +PERC10TA27 PO
[2017-04-05 12:29] LABS: INTERNATIONAL NORMALIZED RATIO 2.6 RATIO; PROTHROMBIN TIME - PATIENT 26.7 SEC (9.8-11.6)
== END ==
LOC: CLAB 10:52
PROVIDERS: ATTEND Internal Medicine
DX: I82.409 Acute embolism and thrombosis of unspecified deep veins of unspecified lower extremity (principal)
CPT/HCPCS: 36415; 85610

== ENCOUNTER 2017-04-06 10:05 | Emergency (ER) | payer MEDICAID ==
[~2017-04-06] VITALS: Ht 162.6 cm; Wt 63.5 kg
[~2017-04-06 10:05] MED LIST changes: -FENT25DI T-DERMAL; -LACT10SO PO; -PERC10TA27 PO
[2017-04-06 10:06] VITALS: BP 146/81; PULSE 102; RESP 20; TEMP 98.8; O2SAT 99
[2017-04-06] MEDS ORDERED: SODIUM CHLOR 0.9% 1000 ML INJ 1,000 ML IV SCH (10:25)
[2017-04-06] MEDS ORDERED: SODIUM CHLORIDE 0.9% FLUSH 10 ML FLUSH IV FLUSH PRN (10:30)
[2017-04-06] MEDS ORDERED: ONDANSETRON HCL 4 MG/2 ML VIAL IVP ONE (10:30)
[2017-04-06] MEDS ORDERED: MORPHINE SULFATE 4 MG/ML INJ IV PUSH ONE (10:30)
--- NOTE | 2017-04-06 10:38 | PD ---
HPI Chief Complaint: Complaint Time Seen by Provider: 10:27 Travel History International Travel<30 days: No Contact w/Intl Traveler<30days: No Traveled to known affect area: No History of Present Illness HPI C/O 2 DAYS OF LEFT FLANK PAIN AT SITE OF PFSH Past Medical History Cancer: Yes (CERVICAL ) Chemotherapy: Yes Diabetes: No Diminished Hearing: No Deep Vein Thrombosis: Yes (BLE) Endocrine: No Genitourinary: Yes (blocked l ureter l neph tube in place stent to right ureter ) Hypertension: Yes (PT DENIES) Immune Disorder: No Psychiatric: No Immunizations Current: Yes Influenza Vaccination: No ?: Not : 5 Para: 5 Tubal Ligation: Yes Past Surgical History Abdominal Surgery: Yes (HERNIA REPAIR) Hysterectomy: Yes Tonsillectomy: Yes Other Surgery: Yes (NEPHROSTOMY TUBE IN PLACE) Social History Alcohol Use: No Tobacco Use: No Substance Use: No Allergies-Medications (Allergen,Severity, Reaction): Coded Allergies: levofloxacin (Unverified Allergy, Unknown, 04/02/17) metronidazole (Unverified Allergy, Unknown, 04/02/17) penicillin G (Unverified Allergy, Unknown, 04/02/17) Reported Meds & Prescriptions Reported Meds & Active Scripts Active Fentanyl Patch 72 HR (Fentanyl) 25 Mcg/Hr Patch 25 Mcg T-DERMAL Q72H Percocet (Oxycodone-Acetaminophen) 10-325 mg Tab 1 Tab PO Q4H PRN Lactulose Liq (Lactulose) 10 Gm/15 Ml Soln 30 Ml PO Q6H PRN Gnp Senna Plus 8.6-50 mg (Sennosides-Docusate Sodium) 8.6 Mg-50 Mg Tab 1 Tab PO BID Oxycodone-Acetaminophen 10-325 (Oxycodone HCl/Acetaminophen) 10 Mg-325 Mg Tablet 1 Tab PO Q6H PRN Reported Lovenox Inj (Enoxaparin Sodium) 80 mg/0.8 ML Syr 90 Mg SQ DAILY Coumadin (Warfarin) 5 Mg Tab 5 Mg PO EVERY OTHER DAY Data Data Last Documented VS Vital Signs Date Time Temp Pulse Resp B/P (MAP) Pulse Ox O2 Delivery O2 Flow Rate FiO2 04/06/17 16:50 100 24 163/83 (109) 99 Room Air 04/06/17 10:06 98.8 Orders Orders Complete Blood Count With Diff (04/06/17 10:25) Comprehensive Metabolic Panel (04/06/17 10:25) Lipase (04/06/17 10:25) Urinalysis - C+S If Indicated (04/06/17 10:25) Abdomen, Flat & Upright (04/06/17 ) Iv Access Insert/Monitor (04/06/17 10:25) Ecg Monitoring (04/06/17 10:25) Oximetry (04/06/17 10:25) NPO (04/06/17 10:25) Morphine Inj (Morphine Inj) (04/06/17 10:30) Ondansetron Inj (Zofran Inj) (04/06/17 10:30) Sodium Chlor 0.9% 1000 Ml Inj (Ns 1000 M (04/06/17 10:25) Sodium Chloride 0.9% Flush (Ns Flush) (04/06/17 10:30) Fentanyl 25 Mcg Patch.72 Hr (Duragesic (04/06/17 14:00) Oxycodone-Acetamin 10-325 Mg (Percocet 1 (04/06/17 16:45) Ed Discharge Order (04/06/17 17:13) Labs Laboratory Tests Test 04/06/17 10:40 04/06/17 11:27 04/06/17 12:04 White Blood Count 9.0 TH/MM3 Red Blood Count 3.57 MIL/MM3 Hemoglobin 10.0 GM/DL Hematocrit 31.1 % Mean Corpuscular Volume 87.2 FL Mean Corpuscular Hemoglobin 28.1 PG Mean Corpuscular Hemoglobin Concent 32.3 % Red Cell Distribution Width 16.7 % Platelet Count 472 TH/MM3 Mean Platelet Volume 7.6 FL Neutrophils (%) (Auto) 75.7 % Lymphocytes (%) (Auto) 13.0 % Monocytes (%) (Auto) 10.2 % Eosinophils (%) (Auto) 0.6 % Basophils (%) (Auto) 0.5 % Neutrophils # (Auto) 6.8 TH/MM3 Lymphocytes # (Auto) 1.2 TH/MM3 Monocytes # (Auto) 0.9 TH/MM3 Eosinophils # (Auto) 0.0 TH/MM3 Basophils # (Auto) 0.0 TH/MM3 CBC Comment DIFF FINAL Differential Comment Blood Urea Nitrogen 15 MG/DL Creatinine 1.00 MG/DL Random Glucose 81 MG/DL Total Protein 8.9 GM/DL Albumin 2.2 GM/DL Calcium Level 9.1 MG/DL Alkaline Phosphatase 133 U/L Aspartate Amino Transf (AST/SGOT) 45 U/L Alanine Aminotransferase (ALT/SGPT) 19 U/L Total Bilirubin 0.5 MG/DL Sodium Level 134 MEQ/L Potassium Level 4.2 MEQ/L Chloride Level 104 MEQ/L Carbon Dioxide Level 21.4 MEQ/L Anion Gap 9 MEQ/L Estimat Glomerular Filtration Rate 70 ML/MIN Lipase 50 U/L Urine Color LIGHT-YELLOW Urine Turbidity CLOUDY Urine pH 5.5 Urine Specific [place] 1.010 Urine Protein TRACE mg/dL Urine Glucose (UA) NEG mg/dL Urine Ketones TRACE mg/dL Urine Occult Blood NEG Urine Nitrite NEG Urine Bilirubin NEG Urine Urobilinogen LESS THAN 2.0 MG/DL Urine Leukocyte Esterase MOD Urine RBC 1 /hpf Urine WBC 4 /hpf Urine Uric Acid Crystals RARE /hpf Urine Amorphous Sediment OCC Urine Bacteria RARE /hpf Urine Mucus FEW /lpf Microscopic Urinalysis Comment CULT NOT INDICATED MDM Medical Decision Making Medical Screen Exam Complete: Yes Emergency Medical Condition: Yes Medical Record Reviewed: Yes Differential Diagnosis PYELO V NEPHROSTOMY TUBE DISLODGMENT V METASTATIC DZ PAIN Narrative Course PATIENT FOUND TO HAVE PAIN DUE TO NEPHROSTOMY AND METASTATIC CANCER, PATIENT IS ONGOING RECEIVING RADIATION THERAPY WHICH CAUSES HER URETER TO STENOSE, THUS NECESSITATING HER NEPHROSTOMY Diagnosis Primary Impression: FLANK PAIN (CANCER RELATED) Scripts Fentanyl Patch 72 HR (Fentanyl Patch 72 HR) 25 Mcg/Hr Patch 25 MCG T-DERMAL Q72H for Pain Management, #2 PATCH 0 Refills Prov: Adan Dodson MD 04/06/17 Oxycodone-Acetaminophen (Percocet) 10-325 mg Tab 1 TAB PO Q4H Y for PAIN, #20 TAB 0 Refills Prov: Adan Dodson MD 04/06/17 Lactulose Liq (Lactulose Liq) 10 Gm/15 Ml Soln 30 ML PO Q6H Y for CONSTIPATION, #300 ML 0 Refills Prov: Adan Dodson MD 04/06/17 Disposition: 01 DISCHARGE HOME Condition: Stable Adan Dodson MD Apr 06, 2017 10:38
[2017-04-06 10:43] LABS: AUTOMATED NEUTROPHIL # 6.8 TH/MM3 (1.8-7.7); BASOPHIL % 0.5 % (0.0-2.0); EOSINOPHIL % 0.6 % (0.0-4.0); HEMATOCRIT 31.1 % (35.0-46.0); HEMO FLAGS DIFF FINAL; LYMPHOCYTE # 1.2 TH/MM3 (1.0-4.8); MEAN CELL VOLUME 87.2 FL (80.0-100.0); MEAN CORPUSCULAR HEMOGLOBIN 28.1 PG (27.0-34.0); MEAN CORPUSCULAR HGB CONC 32.3 % (32.0-36.0); MONO % 10.2 % (0.0-8.0); NEUT % 75.7 % (16.0-70.0); PLATELET COUNT 472 TH/MM3 (150-450); RED BLOOD COUNT 3.57 MIL/MM3 (4.00-5.30); RED CELL DISTRIBUTION WIDTH 16.7 % (11.6-17.2)
[2017-04-06 11:05] LABS: ALKALINE PHOSPHATASE 133 U/L (45-117); TOTAL BILIRUBIN ADULT 0.5 MG/DL (0.2-1.0)
--- NOTE | 2017-04-06 11:41 | RADRPT ---
EXAM DATE/TIME: 04/06/2017 10:53 [facility] COMPARISON: CT ABDOMEN & PELVIS W/O CONTRAST, March 16, 2017, 21:59. CHEST SINGLE AP, April 02, 2017, 4:14 . INDICATIONS : Bilateral back pain. MEDICAL HISTORY : Hypertension. cervical cancer, deep vein thrombosis SURGICAL HISTORY : Hysterectomy. tubal ligation, nephrostomy tube since 09/2016, lung bx 03/2017 ENCOUNTER: Initial ACUITY: 2 weeks PAIN SCORE: 10/10 LOCATION: Bilateral lower back FINDINGS: There is a ureteral stent in place on the right. There is nephrostomy tube in place on the left. Ther e are embolization coils seen in the pelvis bilaterally. The bowel gas patterns is unremarkable. There is no free air. The visualized bony structures are inta ct. CONCLUSION: 1. Right ureteral stent in good position. 2. Left nephrostomy in good position. 3. Embolization clips bilaterally in the pelvis. 4. Normal appearing bowel gas pattern. Oskar Brock MD on April 06, 2017 at 11:37 Board Certified Radiologist. This report was verified electronically.
[2017-04-06 12:17] VITALS: BP 159/91; PULSE 103; RESP 16; O2SAT 100
[2017-04-06 12:24] LABS: BLOOD UREA NITROGEN 15 MG/DL (7-18); GLOMERULAR FILTRATION RATE 70 ML/MIN (>89)
[2017-04-06 12:25] LABS: ALT (GPT) 19 U/L (10-53); ANION GAP 9 MEQ/L (5-15); AST (GOT) 45 U/L (15-37); BICARBONATE 21.4 MEQ/L (21.0-32.0); CHLORIDE 104 MEQ/L (98-107); POTASSIUM 4.2 MEQ/L (3.5-5.1); SODIUM (NA) 134 MEQ/L (136-145)
[2017-04-06 12:29] LABS: BACTERIA, URINE RARE /hpf; BLOOD, URINE NEG (NEG); COMMENT (UR) CULT NOT INDICATED; CULTURE IF INDICATED CULT NOT INDICATED; GLUCOSE,URINE NEG (NEG); KETONE, URINE TRACE mg/dL (NEG); MUCUS URINE FEW /lpf (OCC); NITRITE,URINE NEG (NEG); PH, URINE 5.5 (5.0-8.5); URIC ACID CRYSTALS, URINE RARE /hpf; URINE COLOR LIGHT-YELLOW (YELLW/STRAW)
[2017-04-06] MEDS ORDERED: PERC10TA27 PO (13:54)
[2017-04-06] MEDS ORDERED: FENT25DI T-DERMAL (13:54)
[2017-04-06] MEDS ORDERED: LACT10SO PO (13:54)
[2017-04-06] MEDS ORDERED: fentaNYL 25 MCG/HR PATCH T-DERMAL ONE (14:00)
[2017-04-06 14:33] VITALS: BP 160/88; PULSE 101; RESP 18; O2SAT 98
[2017-04-06] MEDS ORDERED: oxyCODONE/ACETAMINOPHEN 10 MG/325 MG TAB PO ONE (16:45)
[2017-04-06 16:50] VITALS: BP 163/83; PULSE 100; RESP 24; O2SAT 99
== END 2017-04-06 17:56 | disposition home or self-care (01) ==
LOC: NEPE 10:05
DX: R10.9 Unspecified abdominal pain (principal); I10 Essential (primary) hypertension; Z79.01 Long term (current) use of anticoagulants; Z86.718 Personal history of other venous thrombosis and embolism; Z79.899 Other long term (current) drug therapy; Z88.0 Allergy status to penicillin; Z88.8 Allergy status to other drugs, medicaments and biological substances
CPT/HCPCS: 74020; 80053; 81001; 83690; 85025; 96361; 96374; 96375; 99285; J2270; J2405; J7030

== ENCOUNTER → 2017-04-10 | Outpatient (CLI) | payer MEDICAID ==
[~2017-04-10] MED LIST changes: +FENT25DI T-DERMAL; +LACT10SO PO; +PERC10TA27 PO
[2017-04-10 12:45] LABS: INTERNATIONAL NORMALIZED RATIO 3.7 RATIO; PROTHROMBIN TIME - PATIENT 37.4 SEC (9.8-11.6)
== END ==
LOC: CLAB 11:45
PROVIDERS: ATTEND Internal Medicine
DX: I82.409 Acute embolism and thrombosis of unspecified deep veins of unspecified lower extremity (principal)
CPT/HCPCS: 36415; 85610

== ENCOUNTER 2017-04-16 08:23 | Day surgery (SDC) | payer MEDICAID ==
[~2017-04-16] VITALS: Ht 170.2 cm; Wt 63.2 kg
[2017-04-16] MEDS ORDERED: VANCOMYCIN 1000 MG/NS 250 ML - implanted port/tunneled catheter IV SCH ×2 (08:45)
[2017-04-16] MEDS ORDERED: SODIUM CHLORIDE 0.9% 1000 ML IV SCH (08:45)
[2017-04-16 09:10] VITALS: BP 160/96; PULSE 63; RESP 20; TEMP 97.8; O2SAT 94
[2017-04-16 10:28] LABS: APTT (PATIENT) 28.5 SEC (24.3-30.1); INTERNATIONAL NORMALIZED RATIO 1.5 RATIO; PROTHROMBIN TIME - PATIENT 15.4 SEC (9.8-11.6)
[2017-04-16] MEDS ORDERED: MIDAZOLAM HCL 5 MG/5 ML VIAL ONE (11:44)
[2017-04-16] MEDS ORDERED: LIDOCAINE 1%/EPINEPHrine 1:100,000 SOLN 20 ML VIAL ONE (11:56)
[2017-04-16] MEDS ORDERED: MIDAZOLAM HCL 2 MG/2 ML VIAL ONE (12:41)
[2017-04-16] MEDS ORDERED: LABETALOL HCL 100 MG/20 ML VIAL ONE (12:41)
[2017-04-16] MEDS ORDERED: HYDROmorphone HCL PF 2 MG/ML VIAL ONE (12:48)
--- NOTE | 2017-04-16 13:08 | PD.RAD ---
Post Procedure Progress Note Pre Procedure Diagnosis: (1) Encounter for care related to Port-a-Cath (2) Metastatic disease Post Procedure Diagnosis: (1) Encounter for care related to Port-a-Cath (2) Metastatic disease Procedure Date: Apr 16, 2017 Supervising Radiologist: Oskar Brock Estimated blood loss: 3cc Anesthesia: Local, Conscious Sedation Plan of Activity Patient to Unit: ROPU Patient Condition: Poor Additional Comments: left subclavian port evaluated. The port tubing was fractured. Left Port removed. New right sided port placed without difficulty. Right sided port in excellent position OK for use. Full dictated report to follow. See PACS Report for procedural detail/treatment Oskar Brock MD Apr 16, 2017 13:08
[2017-04-16 13:15] VITALS: BP 142/88; PULSE 117; RESP 16; TEMP 98.1; O2SAT 94
[2017-04-16] MEDS ORDERED: SODIUM CHLORIDE 0.9% FLUSH 10 ML FLUSH IVF PRN (13:15)
[2017-04-16 13:30] VITALS: BP 113/75; PULSE 107; RESP 16
[2017-04-16 14:00] VITALS: BP 104/68; PULSE 107; RESP 18; O2SAT 99
[2017-04-16 14:30] VITALS: BP 106/67; PULSE 103; RESP 16; O2SAT 99
[2017-04-16 15:00] VITALS: BP 107/71; PULSE 105; RESP 20; O2SAT 98
--- NOTE | 2017-04-16 16:17 | RADRPT ---
EXAM DATE/TIME: 04/16/2017 11:47 [facility] COMPARISON: INFUS-APORT REMOVAL, W/ FLUORO, LEFT, April 16, 2017, 0:00. The INDICATIONS : Patient presents with non functioning port, in need of patency injection. MEDICAL HISTORY : DVT Metabolic Disease Anemia Renal Insuffciency UTI SURGICAL HISTORY : Hysterectomy Hernia Repair LT Rotator Cuff Repair ENCOUNTER: Initial ACUITY: 3 weeks PAIN SCORE: 8/10 LOCATION: Back FLUORO TIME: 2.2 minutes IMAGE SERIES: 1 SEDATION TIME: 100minutes CONTRAST: 5 cc Omnipaque (iohexol) 350 ACCESS: Left port PROCEDURE : 1. Access of Qnpvia-p-qyod. 2. Port patency injection. The risks, benefits and alternatives to the procedure were explained and verbal and written consent w as obtained. The patient was placed supine. The port was prepped in sterile fashion. Full sterile t echnique was used, including cap, mask, sterile gloves and gown, and a large sterile sheet. Hand hyg iene and 2% chlorhexidine prep was utilized per protocol for cutaneous antisepsis with appropriate dr y time for site. The previously placed port was accessed and positive contrast was injected for evaluation. Injection demonstrates fracture of the catheter as it crosses beneath the left clavicle. CONCLUSION: 1. The Myjxsx-w-Uoyp tubing is fractured beneath the left clavicle. It is nonfunctional. Oskar Brock MD on April 16, 2017 at 16:15 Board Certified Radiologist. This report was verified electronically.
--- NOTE | 2017-04-16 16:18 | RADRPT ---
EXAM DATE/TIME: 04/16/2017 11:47 [facility] COMPARISON: INFUS-APORT REMOVAL, W/ FLUORO, LEFT, April 16, 2017, 0:00. INDICATIONS : Cervical cancer. Nonfunctioning Erifwi-f-Wtww on the left. MEDICAL HISTORY : DVT Metabolic Disease Anemia Renal Insuffciency UTI SURGICAL HISTORY : Hysterectomy Hernia Repair LT Rotator Cuff Repair ENCOUNTER: Initial ACUITY: 3 weeks PAIN SCORE: 8/10 LOCATION: Back FLUORO TIME: 2.2 minutes IMAGE SERIES: 1 SEDATION TIME: 100 minutes ACCESS: Right subclavian vein SEDATION: 1.) 7 mg midazolam (Versed) IV 2.) 200 mcg fentanyl (Sublimaze) IV 3.) 2mg hydromorphone (Dilaudid) IV Prophylactic antibiotics were administered with appropriate pre-procedure timing. Vancomycin within 2 hours of procedure, Ancef (or alternative) within 1 hour of procedure. DEVICE: 1. 8 Indian single lumen Sbwxrl-j-hwdd PROCEDURE : 1. Continuous pulse oximetry and EKG monitoring. 2. Intravenous conscious sedation. 3. Ultrasound guidance for venous access. 4. Fluoroscopic guided implantable central venous port placement. The patient was placed supine. The neck was prepped in sterile fashion. Full sterile technique was u sed, including cap, mask, sterile gloves and gown, and a large sterile sheet. Hand hygiene and 2% ch lorhexidine Betadine was utilized per protocol for cutaneous antisepsis with appropriate dry time for site. Sterile gel and sterile probe cover were utilized for ultrasound guidance. The skin and sub cutaneous tissues were infiltrated with local anesthetic solution. Under direct ultrasound guidance, central venous access was accomplished via the right subclavian vei n. The ultrasound images depicting access guidance were stored and saved to PACS for permanent recor d. A subcutaneous pocket was created using blunt dissection. The port was introduced to the pocket. The catheter tubing was fed through a subcutaneous tunnel to the venotomy site. The catheter tubin g was cut to a suitable length and then was introduced through a valved Peel-Away sheath and position ed with catheter tubing tip at the cavo-atrial junction level. The pocket incision was closed with s ubcuticular Vicryl suture. Steri-Strips were applied. The port was flushed and locked with heparin solution per protocol. Sterile dressing was applied to the site. The patient tolerated the procedur e well. Conscious sedation was performed with the prescribed dosages and duration as above in the presence of an independent trained radiology nurse to assist in the monitoring of the patient. EKG and oximetry remained stable throughout the procedure. The patient tolerated the procedure well and there were no complications. The patient was sent to post anesthesia recovery in stable condition. CONCLUSION: Uncomplicated ultrasound and fluoroscopic guided implanted central venous port catheter placement as described in detail above. An 8 [employer] port was placed. Oskar Brock MD on April 16, 2017 at 16:16 Board Certified Radiologist. This report was verified electronically.
--- NOTE | 2017-04-16 16:19 | RADRPT ---
EXAM DATE/TIME: 04/16/2017 00:00 [facility] COMPARISON: No previous studies available for comparison. INDICATIONS : Patient presents with non working port, in need of removal. MEDICAL HISTORY : DVT Metabolic Disease Anemia Renal Insuffciency UTI SURGICAL HISTORY : Hysterectomy Hernia Repair LT Rotator Cuff Repair ENCOUNTER: Initial ACUITY: 3 weeks PAIN SCORE: 8/10 LOCATION: Back FLUORO TIME: 2.2 minutes IMAGE SERIES: 0 SEDATION TIME: 100 minutes 1.) 7 mg midazolam (Versed) IV 2.) 2 mg hydromorphone (Dilaudid) IV 3.) 200 mcg fentanyl (Sublimaze) IV Prophylactic antibiotics were administered with appropriate pre-procedure timing. Vancomycin within 2 hrs of procedure, Ancef (or alternative) within 1 hr of procedure. PROCEDURE : 1. Removal of Mhnvax-z-yvwn. 2. Conscious sedation with continuous EKG and oximetry monitoring. 3. Fluoroscopic guidance. The risks, benefits and alternatives to the procedure were explained and verbal and written consent w as obtained. The patient was placed supine. The port was prepped in sterile fashion. Full sterile t echnique was used, including cap, mask, sterile gloves and gown, and a large sterile sheet. Hand hyg iene and 2% chlorhexidine and/or Betadine/alcohol prep was utilized per protocol for cutaneous antise psis. The skin and subcutaneous tissues were infiltrated with local anesthetic solution the subcutaneous po cket was opened. The port was dissected from the subcutaneous tissues and easily removed in one piec e. The pocket incision was closed with subcuticular Vicryl suture. Steri-Strips were applied. Conscious sedation was performed with the prescribed dosages and duration as above in the presence of an independent trained radiology nurse to assist in the monitoring of the patient. EKG and oximetry remained stable throughout the procedure. The patient tolerated the procedure well and there were n o complications. The patient was sent to post anesthesia recovery in stable condition. CONCLUSION: Uncomplicated port removal as above. Oskar Brock MD on April 16, 2017 at 16:17 Board Certified Radiologist. This report was verified electronically.
== END 2017-04-16 15:40 | disposition home or self-care (01) ==
LOC: HROP 08:23 → HRIP 08:26 → HROP 15:40
PROVIDERS: ATTEND Internal Medicine
DX: Z45.2 Encounter for adjustment and management of vascular access device (principal); C53.9 Malignant neoplasm of cervix uteri, unspecified; Z79.01 Long term (current) use of anticoagulants
CPT/HCPCS: 36561; 36590; 36598; 76937; 77001; 85610; 85730; 99152; 99153; C1788; J1170; J1642; J2250; J3010; J3370; J7030; J7050

== ENCOUNTER 2017-04-25 12:38 | Inpatient (IN) | payer MEDICAID, OTHER ==
[~2017-04-25] VITALS: Ht 170.2 cm; Wt 72.2 kg
[~2017-04-25 12:38] MED LIST changes: -COUM5TAB PO; -OXYC1TAB36 PO; -PERC10TA27 PO
[2017-04-25 12:39] VITALS: BP 167/99; PULSE 112; RESP 22; TEMP 97.8; O2SAT 97
[2017-04-25] MEDS ORDERED: HYDROmorphone HCL PF 2 MG/ML VIAL IV PUSH ONE (13:45)
--- NOTE | 2017-04-25 14:08 | RADRPT ---
EXAM DATE/TIME: 04/25/2017 13:33 [facility] COMPARISON: CHEST SINGLE AP, April 02, 2017, 4:14. INDICATIONS : Short of breath. MEDICAL HISTORY : Hypertension. cervical cancer, deep vein thrombosis SURGICAL HISTORY : Hysterectomy. tubal ligation, nephrostomy tube since 09/2016, lung bx, infuse a port. ENCOUNTER: Initial ACUITY: 1 day PAIN SCORE: 0/10 LOCATION: Bilateral chest FINDINGS: A single view of the chest demonstrates the lungs to be symmetrically aerated with multiple bilateral pulmonary nodules concerning for metastatic disease. The largest in the right lower lung field measu res approximately 3.1 cm in diameter. Previous left subclavian Sdrozu-k-Izcc catheter has been remove d and replaced with a right subclavian Remspe-j-Mcaa. No confluent infiltrates or effusions. Heart si ze is normal. Osseous structures are intact. CONCLUSION: 1. Multiple bilateral pulmonary nodules concerning for metastatic disease. 2. Interval removal of the left subclavian Biejtv-r-Yway catheter and placement of a right subclavian Ppnzkb-i-Qskp catheter. No pneumothorax. 3. Heart size is normal. No superimposed acute infiltrate. Kwabena Palmer MD on April 25, 2017 at 13:57 Board Certified Radiologist. This report was verified electronically.
--- NOTE | 2017-04-25 14:28 | PD ---
HPI Chief Complaint: Edema Time Seen by Provider: 12:50 Travel History International Travel<30 days: No Contact w/Intl Traveler<30days: No Traveled to known affect area: No History of Present Illness HPI This is a 51-year-old female who presents to the emergency department with severe pain in her low back, constant, worse with movement, improved with rest. She says she's been having this pain for 2 months. She also reports that her legs have gotten increasingly swollen. The patient has a history of metastatic cancer. The primary is unknown and she follows with Dr. Peña and it is suspected that its cervical. She has not started chemotherapy yet. She's been taking Percocet for pain but she is out of it. She's been increasingly weak and fatigued. PFSH Past Medical History Cancer: Yes (CERVICAL ) Chemotherapy: Yes Diabetes: No Diminished Hearing: No Deep Vein Thrombosis: Yes (BLE) Endocrine: No Genitourinary: Yes (URETHRAL STENT AND NEPHROSTOMY TUBE) Hypertension: Yes (PT DENIES) Immune Disorder: No Medical other: Yes (DVT) Psychiatric: No Immunizations Current: Yes Tetanus Vaccination: < 5 Years Influenza Vaccination: No ?: Not : 5 Para: 5 Tubal Ligation: Yes Past Surgical History Abdominal Surgery: Yes (HERNIA REPAIR) Hysterectomy: Yes Tonsillectomy: Yes Other Surgery: Yes (NEPHROSTOMY TUBE IN PLACE) Social History Alcohol Use: No Tobacco Use: No Substance Use: No Allergies-Medications (Allergen,Severity, Reaction): Coded Allergies: levofloxacin (Unverified Allergy, Unknown, 04/02/17) metronidazole (Unverified Allergy, Unknown, 04/02/17) penicillin G (Unverified Allergy, Unknown, 04/02/17) Reported Meds & Prescriptions Reported Meds & Active Scripts Active Fentanyl Patch 72 HR (Fentanyl) 25 Mcg/Hr Patch 25 Mcg T-DERMAL Q72H Lactulose Liq (Lactulose) 10 Gm/15 Ml Soln 30 Ml PO Q6H PRN Gnp Senna Plus 8.6-50 mg (Sennosides-Docusate Sodium) 8.6 Mg-50 Mg Tab 1 Tab PO BID Reported Lovenox Inj (Enoxaparin Sodium) 80 mg/0.8 ML Syr 90 Mg SQ DAILY Review of Systems Except as stated in HPI: all other systems reviewed are Neg Physical Exam Narrative GENERAL:Well appearing, no acute distress SKIN: Focused skin assessment warm and dry. HEAD: Atraumatic. Normocephalic. EYES: Pupils equal and round. No injection or drainage. ENT: Moist mucous membranes NECK: Trachea midline. CARDIOVASCULAR: Regular rate and rhythm. No murmur appreciated. 3+ pitting edema in the bilateral lower extremities, right > left RESPIRATORY: Clear to auscultation. Breath sounds equal bilaterally. GASTROINTESTINAL: Abdomen soft, non-tender, nondistended. MUSCULOSKELETAL: No obvious deformities. NEUROLOGICAL: Awake and alert. No obvious cranial nerve deficits. Moving all extremities. PSYCHIATRIC: Appropriate mood and affect; insight and judgment normal. Data Data Last Documented VS Vital Signs Date Time Temp Pulse Resp B/P (MAP) Pulse Ox O2 Delivery O2 Flow Rate FiO2 04/25/17 15:15 18 04/25/17 12:53 103 100 Room Air 04/25/17 12:39 97.8 167/99 (121) Orders Orders Complete Blood Count With Diff (04/25/17 13:10) Comprehensive Metabolic Panel (04/25/17 13:10) B-Type Natriuretic Peptide (04/25/17 13:10) Act Partial Throm Time (Ptt) (04/25/17 13:10) Prothrombin Time / Inr (Pt) (04/25/17 13:10) Troponin I (04/25/17 13:10) Chest, Single Ap (04/25/17 13:10) Us Leg Venous Doppler Bilat (04/25/17 ) Hydromorphone Pf Inj (Dilaudid Pf Inj) (04/25/17 13:45) Urinalysis - C+S If Indicated (04/25/17 17:43) Admit Order (Ed Use Only) (04/25/17 18:03) Labs Laboratory Tests Test 04/25/17 13:45 04/25/17 14:45 04/25/17 17:55 Blood Urea Nitrogen 20 MG/DL Creatinine 0.99 MG/DL Random Glucose 88 MG/DL Total Protein 7.1 GM/DL Albumin 1.9 GM/DL Calcium Level 8.6 MG/DL Alkaline Phosphatase 184 U/L Aspartate Amino Transf (AST/SGOT) 43 U/L Alanine Aminotransferase (ALT/SGPT) 13 U/L Total Bilirubin 0.4 MG/DL Sodium Level 139 MEQ/L Potassium Level 3.5 MEQ/L Chloride Level 109 MEQ/L Carbon Dioxide Level 18.8 MEQ/L Anion Gap 11 MEQ/L Estimat Glomerular Filtration Rate 71 ML/MIN Troponin I LESS THAN 0.02 NG/ML White Blood Count 12.5 TH/MM3 Red Blood Count 3.47 MIL/MM3 Hemoglobin 9.3 GM/DL Hematocrit 29.6 % Mean Corpuscular Volume 85.3 FL Mean Corpuscular Hemoglobin 26.8 PG Mean Corpuscular Hemoglobin Concent 31.4 % Red Cell Distribution Width 17.5 % Platelet Count 570 TH/MM3 Mean Platelet Volume 7.6 FL Neutrophils (%) (Auto) 84.4 % Lymphocytes (%) (Auto) 8.8 % Monocytes (%) (Auto) 6.2 % Eosinophils (%) (Auto) 0.0 % Basophils (%) (Auto) 0.6 % Neutrophils # (Auto) 10.6 TH/MM3 Lymphocytes # (Auto) 1.1 TH/MM3 Monocytes # (Auto) 0.8 TH/MM3 Eosinophils # (Auto) 0.0 TH/MM3 Basophils # (Auto) 0.1 TH/MM3 CBC Comment DIFF FINAL Differential Comment Prothrombin Time 22.1 SEC Prothromb Time International Ratio 2.2 RATIO Activated Partial Thromboplast Time 35.1 SEC B-Type Natriuretic Peptide 80 PG/ML MDM Medical Decision Making Medical Screen Exam Complete: Yes Emergency Medical Condition: Yes Interpretation(s) Afebrile, tachycardic, hypertensive Leukocytosis Anemia similar to prior Thrombocytosis Bicarbonate is 18 Albumin is 1.9 Last 24 hours Impressions Chest X-Ray 04/25/17 1310 Signed Impressions: Service Date/Time: Tuesday, April 25, 2017 13:33 - CONCLUSION: 1. Multiple bilateral pulmonary nodules concerning for metastatic disease. 2. Interval removal of the left subclavian Rgphan-g-Gxyo catheter and placement of a right subclavian Lsnbrc-f-Ecup catheter. No pneumothorax. 3. Heart size is normal. No superimposed acute infiltrate. Kwabena Palmer MD Lower Extremity Ultrasound 04/25/17 0000 Signed Impressions: Service Date/Time: Tuesday, April 25, 2017 13:34 - CONCLUSION: 1. Enlarged bilateral inguinal lymph nodes. The largest on the right measures 5 cm in diameter. Nodes are suspicious. 2. No DVT. Kwabena Palmer MD Differential Diagnosis DVT, congestive heart failure, malnutrition, dehydration, pyelonephritis, cancer Narrative Course This is a 51-year-old female who presents to the emergency department with intractable back pain that's not improve despite Percocet at home. She has diffusely metastatic cancer and is followed by Dr. Peña. She's had increasing lower extremity swelling. She appears dry with dry mucous membranes and is tachycardic. Her albumin is 1.9 and I suspect her lower extremity edema secondary to third spacing. Ultrasound was negative for DVT. I spoke to Dr. Peña regarding the patient. He agrees that the patient would benefit from observation and continued pain control. Physician Communication Physician Communication Discussed with Dr. Peña and Dr. Alcala Diagnosis Primary Impression: Cancer associated pain Admitting Information Admitting Physician Requests: Observation Maude Harper MD Apr 25, 2017 14:28
[2017-04-25 14:30] LABS: ALKALINE PHOSPHATASE 184 U/L (45-117); TOTAL BILIRUBIN ADULT 0.4 MG/DL (0.2-1.0); TOTAL PROTEIN 7.1 GM/DL (6.4-8.2); TROPONIN I LESS THAN 0.02 NG/ML (0.02-0.05)
[2017-04-25 14:35] LABS: ALBUMIN 1.9 GM/DL (3.4-5.0); ALT (GPT) 13 U/L (10-53); AST (GOT) 43 U/L (15-37); BICARBONATE 18.8 MEQ/L (21.0-32.0); BLOOD UREA NITROGEN 20 MG/DL (7-18); CALCIUM 8.6 MG/DL (8.5-10.1); CHLORIDE 109 MEQ/L (98-107); CREATININE 0.99 MG/DL (0.50-1.00); GLOMERULAR FILTRATION RATE 71 ML/MIN (>89); GLUCOSE,RANDOM 88 MG/DL (74-106); SODIUM (NA) 139 MEQ/L (136-145)
[2017-04-25 15:07] LABS: AUTOMATED NEUTROPHIL # 10.6 TH/MM3 (1.8-7.7); BASOPHIL # 0.1 TH/MM3 (0-0.2); BASOPHIL % 0.6 % (0.0-2.0); HEMATOCRIT 29.6 % (35.0-46.0); HEMOGLOBIN 9.3 GM/DL (11.6-15.3); LYMPH % 8.8 % (9.0-44.0); LYMPHOCYTE # 1.1 TH/MM3 (1.0-4.8); MEAN CELL VOLUME 85.3 FL (80.0-100.0); MEAN CORPUSCULAR HEMOGLOBIN 26.8 PG (27.0-34.0); MEAN CORPUSCULAR HGB CONC 31.4 % (32.0-36.0); MEAN PLATELET VOLUME 7.6 FL (7.0-11.0); MONO % 6.2 % (0.0-8.0); MONOCYTE # 0.8 TH/MM3 (0-0.9); NEUT % 84.4 % (16.0-70.0); PLATELET COUNT 570 TH/MM3 (150-450); RED BLOOD COUNT 3.47 MIL/MM3 (4.00-5.30); RED CELL DISTRIBUTION WIDTH 17.5 % (11.6-17.2); WHITE BLOOD COUNT 12.5 TH/MM3 (4.0-11.0)
--- NOTE | 2017-04-25 15:15 | RADRPT ---
EXAM DATE/TIME: 04/25/2017 13:34 [facility] COMPARISON: No previous studies available for comparison. INDICATIONS : Leg pain. MEDICAL HISTORY : Deep venous thrombosis. Cervical cancer. SURGICAL HISTORY : Hysterectomy. Nephrostomy tube. ENCOUNTER: Initial ACUITY: 2 weeks PAIN SCORE: 9/10 LOCATION: Bilateral legs. TECHNIQUE: Venous ultrasound of the left and right leg was performed from the inguinal ligament to the proximal calf. Real-time, color Doppler and spectral tracing, compression and augmentation techniques were us ed. FINDINGS: RIGHT LEG: There is normal compressibility of the deep venous system from the inguinal region to the proximal ca lf. No echogenic clot is seen in the lumen of the common femoral, femoral, popliteal, and posterior tibial veins. There is a normal response of the venous system to proximal and distal augmentation an d respiration. Enlarged right inguinal lymph node measuring upwards of 5 cm in diameter. LEFT LEG: There is normal compressibility of the deep venous system from the inguinal region to the proximal ca lf. No echogenic clot is seen in the lumen of the common femoral, femoral, popliteal, and posterior tibial veins. There is a normal response of the venous system to proximal and distal augmentation an d respiration. Enlarged inguinal lymph nodes the largest measuring upwards of 1.8 cm in diameter. CONCLUSION: 1. Enlarged bilateral inguinal lymph nodes. The largest on the right measures 5 cm in diameter. Nodes are suspicious. 2. No DVT. Kwabena Palmer MD on April 25, 2017 at 15:09 Board Certified Radiologist. This report was verified electronically.
[2017-04-25 15:28] LABS: INTERNATIONAL NORMALIZED RATIO 2.2 RATIO; PROTHROMBIN TIME - PATIENT 22.1 SEC (9.8-11.6)
[2017-04-25] MEDS ORDERED: NALOXONE HCL 0.4 MG/ML AMP IV PUSH PRN (18:15)
[2017-04-25 20:29] VITALS: BP 136/75; PULSE 108; TEMP 97.9; O2SAT 99
[2017-04-25] MEDS: HYDROmorphone HCL PF 2 MG/ML VIAL IV PUSH PRN (20:35)
[2017-04-25] MEDS: SODIUM CHLORIDE 0.9% FLUSH 10 ML FLUSH IV FLUSH SCH (20:36)
[2017-04-25 23:47] VITALS: BP 111/68; PULSE 115; RESP 14; TEMP 97.8; O2SAT 97
[2017-04-26] VITALS (7 sets, daily range): BP systolic 101–142; BP diastolic 59–78; PULSE 107–121; RESP 15–20; TEMP 97–98.5; O2SAT 96–100
[2017-04-26] MEDS ORDERED: WARF-23 PO (00:39)
[2017-04-26] MEDS: HYDROmorphone HCL PF 2 MG/ML VIAL IV PUSH PRN ×5 (01:03→20:09)
--- NOTE | 2017-04-26 03:10 | HHI.HP ---
HPI Service [facility] Hospitalists . Primary Care Physician Dominick Ziegler . 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 Diagnoses: (1) Cancer associated pain (2) Protein calorie malnutrition (3) Diarrhea Chief Complaint: Severe pain "all over" Travel History International Travel<30 Days: No Contact w/Intl Traveler <30 Da: No Traveled to Known Affected Are: No History of Present Illness Mrs. 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 She is also complaining of worsening bilateral lower extremity edema. She was admitted for pain management under the hospitalist service. The patient is seen in the CDU. She is complaining of achy 8/10 pain located "really all over right now". She reports pain relief here at the hospital with PRN IV Dilaudid. She denies fever, reports she is always chilled. She denies recent cold symptoms, cough, shortness of breath, chest pain, nausea or vomiting. She is complaining of diarrhea that started a week ago. She has had several episodes of diarrhea daily. She states she was on antibiotics about two weeks ago. Review of Systems Except as stated in HPI: all other systems reviewed are Neg Past Family Social History Past Medical History Cervical cancer in 2006 treated with chemo and radiation with recurrence in 2016 treated with radiation Stage IV metastatic adenocarcinoma of unknown primary BLE DVTs Severe peripheral neuropathy . Past Surgical History Tonsillectomy Hernia repair BTL Total hysterectomy Left nephrostomy tube placement 04/16/17: left port tube fracture - left port removed; right port placed . Reported Medications Reported Meds & Active Scripts Active Fentanyl Patch 72 HR (Fentanyl) 25 Mcg/Hr Patch 25 Mcg T-DERMAL Q72H Lactulose Liq (Lactulose) 10 Gm/15 Ml Soln 30 Ml PO Q6H PRN Gnp Senna Plus 8.6-50 mg (Sennosides-Docusate Sodium) 8.6 Mg-50 Mg Tab 1 Tab PO BID Reported Warfarin 5 Mg Tab 5 Mg PO DAILY Lovenox Inj (Enoxaparin Sodium) 80 mg/0.8 ML Syr 90 Mg SQ DAILY . Allergies: Coded Allergies: levofloxacin (Unverified Allergy, Unknown, 04/02/17) metronidazole (Unverified Allergy, Unknown, 04/02/17) penicillin G (Unverified Allergy, Unknown, 04/02/17) Active Ordered Medications Current Medications Hydromorphone HCl (Dilaudid Pf Inj) 0.5 mg ONCE ONCE IV PUSH Last administered on 04/25/17 14:45; Start 04/25/17 at 13:45; Stop 04/25/17 at 13 :46; Status DC Sodium Chloride (NS Flush) 2 ml UNSCH PRN IV FLUSH FLUSH AFTER USING IV ACCESS ; Start 04/25/17 at 18:15 Sodium Chloride (NS Flush) 2 ml BID IV FLUSH Last administered on 04/25/17 20 :36; Start 04/25/17 at 21:00 Naloxone HCl (Narcan Inj) 0.4 mg UNSCH PRN IV PUSH SEE LABEL COMMENTS; Start 04/25/17 at 18:15 Hydromorphone HCl (Dilaudid Pf Inj) 2 mg Q3H PRN IV PUSH pain >5 Last administered on 04/26/17 01:03; Start 04/25/17 at 18:15 . Family History Mother age 67; hypertension and ESRD Father from Alzheimer's disease Christ2015 from complications related to Alzheimer's Disease Sister with hypertension . Social History Tobacco: denies Alcohol: denies Illicit Drugs: denies . Physical Exam Vital Signs Vital Signs Date Time Temp Pulse Resp B/P (MAP) Pulse Ox O2 Delivery O2 Flow Rate FiO2 04/25/17 23:47 97.8 115 14 111/68 (82) 97 04/25/17 20:29 97.9 108 136/75 (95) 99 04/25/17 15:15 18 04/25/17 12:53 103 18 100 Room Air 04/25/17 12:39 97.8 112 22 167/99 (121) 97 Physical Exam GENERAL: This is a cachectic female patient, initially in pain, then comfortable after receiving IV Dilaudid. SKIN: No rashes. Cool and dry. HEAD: Atraumatic. Normocephalic. EYES: No scleral icterus. No injection or drainage. ENT: Nose without bleeding, purulent drainage. NECK: Trachea midline. No JVD. CARDIOVASCULAR: Regular rate and rhythm without murmurs, gallops, or rubs. RESPIRATORY: Clear to auscultation. Breath sounds equal bilaterally. No wheezes , rales, or rhonchi. GASTROINTESTINAL: Abdomen soft, non-tender, nondistended. No guarding. GENITOURINARY: left nephrostomy tube draining dark yellow urine. MUSCULOSKELETAL: Extremities without clubbing, cyanosis. 3+ pitting lower extremity edema to bilateral knees slightly worse on right than left. NEUROLOGICAL: Awake and alert. Motor and sensory grossly within normal limits. Normal speech. . Laboratory Laboratory Tests Test 04/25/17 13:45 04/25/17 14:45 04/25/17 17:55 Blood Urea Nitrogen 20 Creatinine 0.99 Random Glucose 88 Total Protein 7.1 Albumin 1.9 Calcium Level 8.6 Alkaline Phosphatase 184 Aspartate Amino Transf (AST/SGOT) 43 Alanine Aminotransferase (ALT/SGPT) 13 Total Bilirubin 0.4 Sodium Level 139 Potassium Level 3.5 Chloride Level 109 Carbon Dioxide Level 18.8 Anion Gap 11 Estimat Glomerular Filtration Rate 71 Troponin I LESS THAN 0.02 White Blood Count 12.5 Red Blood Count 3.47 Hemoglobin 9.3 Hematocrit 29.6 Mean Corpuscular Volume 85.3 Mean Corpuscular Hemoglobin 26.8 Mean Corpuscular Hemoglobin Concent 31.4 Red Cell Distribution Width 17.5 Platelet Count 570 Mean Platelet Volume 7.6 Neutrophils (%) (Auto) 84.4 Lymphocytes (%) (Auto) 8.8 Monocytes (%) (Auto) 6.2 Eosinophils (%) (Auto) 0.0 Basophils (%) (Auto) 0.6 Neutrophils # (Auto) 10.6 Lymphocytes # (Auto) 1.1 Monocytes # (Auto) 0.8 Eosinophils # (Auto) 0.0 Basophils # (Auto) 0.1 CBC Comment DIFF FINAL Differential Comment Prothrombin Time 22.1 Prothromb Time International Ratio 2.2 Activated Partial Thromboplast Time 35.1 B-Type Natriuretic Peptide 80 Result Diagram: 04/25/17 1445 04/25/17 1345 Imaging Last Impressions Chest X-Ray 04/25/17 1310 Signed Impressions: Service Date/Time: Tuesday, April 25, 2017 13:33 - CONCLUSION: 1. Multiple bilateral pulmonary nodules concerning for metastatic disease. 2. Interval removal of the left subclavian Bkacwn-a-Iflj catheter and placement of a right subclavian Wruzvo-v-Frur catheter. No pneumothorax. 3. Heart size is normal. No superimposed acute infiltrate. Kwabena Palmre MD Lower Extremity Ultrasound 04/25/17 0000 Signed Impressions: Service Date/Time: Tuesday, April 25, 2017 13:34 - CONCLUSION: 1. Enlarged bilateral inguinal lymph nodes. The largest on the right measures 5 cm in diameter. Nodes are suspicious. 2. No DVT. Kwabena Palmer MD . Caprini VTE Risk Assessment Caprini VTE Risk Assessment: Mod/High Risk (score >= 2) Caprini Risk Assessment Model Point Value = 1 Point Value = 2 Point Value = 3 Point Value = 5 Age 41-60 Minor surgery BMI > 25 kg/m2 Swollen legs Varicose veins or History of unexplained or recurrent spontaneous Oral contraceptives or hormone replacement Sepsis (< 1 month) Serious lung disease, including pneumonia (< 1 month) Abnormal pulmonary function Acute myocardial infarction Congestive heart failure (< 1 month) History of inflammatory bowel disease Medical patient at bed rest Age 61-74 Arthroscopic surgery Major open surgery (> 45 min) Laparoscopic surgery (> 45 min) Malignancy Confined to bed (> 72 hours) Immobilizing plaster cast Central venous access Age >= 75 History of VTE Family history of VTE Factor V Leiden Prothrombin [id number] Lupus anticoagulant Anticardiolipin antibodies Elevated serum homocysteine Heparin-induced thrombocytopenia Other congenital or acquired thrombophilia Stroke (< 1 month) Elective arthroplasty Hip, pelvis, or leg fracture Acute spinal cord injury (< 1 month) Prophylaxis Regimen Total Risk Factor Score Risk Level Prophylaxis Regimen 0-1 Low Early ambulation 2 Moderate Order ONE of the following: *Sequential Compression Device (SCD) *Heparin 5000 units SQ BID 3-4 Higher Order ONE of the following medications: *Heparin 5000 units SQ TID *Enoxaparin/Lovenox 40 mg SQ daily (WT < 150 kg, CrCl > 30 mL/min) *Enoxaparin/Lovenox 30 mg SQ daily (WT < 150 kg, CrCl > 10-29 mL/min) *Enoxaparin/Lovenox 30 mg SQ BID (WT < 150 kg, CrCl > 30 mL/min) AND/OR *Sequential Compression Device (SCD) 5 or more Highest Order ONE of the following medications: *Heparin 5000 units SQ TID (Preferred with Epidurals) *Enoxaparin/Lovenox 40 mg SQ daily (WT < 150 kg, CrCl > 30 mL/min) *Enoxaparin/Lovenox 30 mg SQ daily (WT < 150 kg, CrCl > 10-29 mL/min) *Enoxaparin/Lovenox 30 mg SQ BID (WT < 150 kg, CrCl > 30 mL/min) AND *Sequential Compression Device (SCD) Assessment and Plan Problem List: (1) Cancer associated pain ICD Code: G89.3 - Neoplasm related pain (acute) (chronic) Status: Acute (2) Protein calorie malnutrition ICD Code: E46 - Unspecified protein-calorie malnutrition (3) Diarrhea ICD Code: R19.7 - Diarrhea, unspecified Assessment and Plan Mrs. 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 She is also complaining of worsening bilateral lower extremity edema. She was admitted for pain management under the hospitalist service. Stage IV adenocarcinoma with liver and lung mets with intractable pain - has been unable to start chemotherapy - consult oncologist Dr. Hester - continue home Fentanyl patch 25 mcg q72h - Dilaudid 2 mg IV q3h prn Pain > 5 Protein Calorie Malnutrition - I have asked the nurse to record patient's weight and height on chart for BMI calculation - patient appears cachectic - Albumin 1.9 - Security System Sales Consultant consulted for recommendations Diarrhea - check stool for c.difficile; patient recently on antibiotics Bilateral lower extremity edema, pitting - suspect multifactorial in nature - hypoalbuminemia, history of bilateral LE DVTs, large inguinal lymph nodes may impede blood return - Bilateral lower extremity doppler u/s negative for DVTs - BNP 80 - Will give a trial dose of Lasix 20 mg IV - Will follow strict I and Os Leukocytosis with neutrophilia - may be secondary to pain/stress response - WBC elevated at 12.5 with neutrophilia, patient afebrile, without symptoms of UTI, c/o diarrhea - UA pending - follow results; CXR personally reviewed with no acute infiltrates - consider empiric antibiotic therapy if c. difficile is negative and UA appears suspicious for UTI Anemia likely secondary to chronic illness - Hemoglobin 9.3, HCT 29.6 - monitor CBC - follow trends, transfuse if needed DVT prophylaxis - INR 2.2 on admission - Continue Coumadin with pharmacy consultation for therapeutic monitoring and dosing patient reports taking both Coumadin and Lovenox - restarted Coumadin given therapeutic INR but will defer dual therapy with Lovenox and Coumadin to Dr. Hester's expertise as I suspect she was just being bridged from Lovenox to Coumadin. . Discussed Condition With Dr. Ortega, patient, patient's daughter, and RN . Mesha Ramsey Apr 26, 2017 03:10
[2017-04-26] MEDS ORDERED: FUROSEMIDE 20 MG/2 ML VIAL IV PUSH ONE (04:45)
[2017-04-26] MEDS ORDERED: POTASSIUM CHLORIDE 25 MEQ EFFERVESCENT TAB PO ONE (04:45)
[2017-04-26] MEDS ORDERED: LACTULOSE SYRUP 20 GM/30 ML CUP PO PRN (05:15)
[2017-04-26] MEDS: SODIUM CHLORIDE 0.9% FLUSH 10 ML FLUSH IV FLUSH PRN (07:40)
[2017-04-26] MEDS ORDERED: fentaNYL 25 MCG/HR PATCH T-DERMAL SCH (09:00)
[2017-04-26] MEDS: DOCUSATE SODIUM 50 MG/SENNA 8.6 MG TAB PO SCH ×2 (09:17→19:23)
[2017-04-26] MEDS: SODIUM CHLORIDE 0.9% FLUSH 10 ML FLUSH IV FLUSH SCH ×2 (09:17→20:09)
[2017-04-26] MEDS: VANCOMYCIN 500 MG VIAL (FOR ORAL USE ONLY) PO SCH ×4 (09:37→20:09)
[2017-04-26 10:48] LABS: INTERNATIONAL NORMALIZED RATIO 2.1 RATIO; PROTHROMBIN TIME - PATIENT 21.3 SEC (9.8-11.6)
[2017-04-26 10:51] LABS: AUTOMATED NEUTROPHIL # 8.3 TH/MM3 (1.8-7.7); BASOPHIL % 0.2 % (0.0-2.0); EOSINOPHIL % 0.2 % (0.0-4.0); HEMATOCRIT 25.7 % (35.0-46.0); HEMOGLOBIN 8.4 GM/DL (11.6-15.3); LYMPH % 11.7 % (9.0-44.0); LYMPHOCYTE # 1.2 TH/MM3 (1.0-4.8); MEAN CELL VOLUME 84.5 FL (80.0-100.0); MEAN CORPUSCULAR HEMOGLOBIN 27.7 PG (27.0-34.0); MEAN CORPUSCULAR HGB CONC 32.8 % (32.0-36.0); MEAN PLATELET VOLUME 7.8 FL (7.0-11.0); MONO % 8.3 % (0.0-8.0); MONOCYTE # 0.9 TH/MM3 (0-0.9); NEUT % 79.6 % (16.0-70.0); PLATELET COUNT 511 TH/MM3 (150-450); RED BLOOD COUNT 3.05 MIL/MM3 (4.00-5.30); RED CELL DISTRIBUTION WIDTH 17.6 % (11.6-17.2); WHITE BLOOD COUNT 10.4 TH/MM3 (4.0-11.0)
[2017-04-26 11:14] LABS: BICARBONATE 25.4 MEQ/L (21.0-32.0); CALCIUM 9.4 MG/DL (8.5-10.1); CREATININE 1.25 MG/DL (0.50-1.00); MAGNESIUM 1.7 MG/DL (1.5-2.5)
--- NOTE | 2017-04-26 12:40 | HHI.PR ---
Subjective Remarks Follow-up for uncontrolled pain and C. difficile colitis Patient positive for C. difficile. Continues have diarrhea. Lower extremity edema improved. She has no other complaints. Pain is 8 out of 10. Deny nausea or vomiting. Objective Vitals Vital Signs Date Time Temp Pulse Resp B/P (MAP) Pulse Ox O2 Delivery O2 Flow Rate FiO2 04/26/17 10:42 18 04/26/17 08:10 18 04/26/17 07:55 112 04/26/17 07:20 97.0 107 15 142/68 (92) 98 04/26/17 04:04 97.9 121 18 119/78 (92) 98 04/25/17 23:47 97.8 115 14 111/68 (82) 97 04/25/17 20:29 97.9 108 136/75 (95) 99 04/25/17 15:15 18 04/25/17 12:53 103 18 100 Room Air Result Diagram: 04/26/17 1021 04/26/17 1021 Objective Remarks GENERAL: in NAD but rooms has bad odor. CARDIOVASCULAR: Regular rate and rhythm without murmurs, gallops, or rubs. RESPIRATORY: Breath sounds equal bilaterally. No accessory muscle use. GASTROINTESTINAL: Abdomen soft, non-tender, nondistended. MUSCULOSKELETAL: +2 lower extremity edema to the knee. Medications and IVs Current Medications Hydromorphone HCl (Dilaudid Pf Inj) 0.5 mg ONCE ONCE IV PUSH Last administered on 04/25/17 14:45; Start 04/25/17 at 13:45; Stop 04/25/17 at 13 :46; Status DC Sodium Chloride (NS Flush) 2 ml UNSCH PRN IV FLUSH FLUSH AFTER USING IV ACCESS Last administered on 04/26/17 07:40; Start 04/25/17 at 18:15 Sodium Chloride (NS Flush) 2 ml BID IV FLUSH Last administered on 04/25/17 20 :36; Start 04/25/17 at 21:00 Naloxone HCl (Narcan Inj) 0.4 mg UNSCH PRN IV PUSH SEE LABEL COMMENTS; Start 04/25/17 at 18:15 Hydromorphone HCl (Dilaudid Pf Inj) 2 mg Q3H PRN IV PUSH pain >5 Last administered on 04/26/17 07:40; Start 04/25/17 at 18:15 Furosemide (Lasix Inj) 20 mg ONCE ONCE IV PUSH Last administered on 04:52; Start 04/26/17 at 04:45; Stop 04/26/17 at 04:48; Status DC Potassium Bicarb/ Potassium Chloride (K-Lyte Cl Eff) 25 meq ONCE ONCE PO Last administered on 04/26/17 04:52; Start 04/26/17 at 04:45; Stop 04/26/17 at 04:47; Status DC Lactulose (Lactulose Liq) 30 ml Q6H PRN PO CONSTIPATION; Start 04/26/17 at 05: 15 Senna/Docusate Sodium (Julieta-Colace) 1 tab BID PO ; Start 04/26/17 at 09:00 Warfarin Sodium (Coumadin) 5 mg DAILY@1600 PO ; Start 04/26/17 at 16:00 Fentanyl (Duragesic 25 Mcg Patch.72 Hr) 1 patch Q3D T-DERMAL Last administered on 04/26/17 09:42; Start 04/26/17 at 09:00 Miscellaneous Information 1 Q3D T-DERMAL ; Start 04/29/17 at 09:00 Pharmacy Profile Note 0 ml @ 0 mls/hr UNSCH OTHER ; Start 04/26/17 at 05:45 Vancomycin HCl (VANCOMYCIN for oral use only) 125 mg QID PO Last administered on 04/26/17 09:37; Start 04/26/17 at 09:00 Patient Medication Teaching (Coumadin Booklet) 1 ONCE ONCE OTHER ; Start 04/26 at 15:00; Stop 04/26/17 at 15:01 A/P Problem List: (1) Cancer associated pain ICD Code: G89.3 - Neoplasm related pain (acute) (chronic) Status: Acute (2) Protein calorie malnutrition ICD Code: E46 - Unspecified protein-calorie malnutrition (3) Diarrhea ICD Code: R19.7 - Diarrhea, unspecified Assessment and Plan Mrs. 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 She is also complaining of worsening bilateral lower extremity edema. She was admitted for pain management under the hospitalist service. Stage IV adenocarcinoma with liver and lung mets with intractable pain - has been unable to start chemotherapy - consult oncologist Dr. Hester - continue home Fentanyl patch 25 mcg q72h. May need to consider increasing fentanyl patch doses. Pending recommendation from colleges. - Dilaudid 2 mg IV q3h prn Pain > 5 Protein Calorie Malnutrition - Albumin 1.9 - Multineedle Shirrer consulted for recommendations C. difficile colitis. - On oral vancomycin. Bilateral lower extremity edema, pitting - suspect multifactorial in nature - hypoalbuminemia, history of bilateral LE DVTs, large inguinal lymph nodes may impede blood return - Bilateral lower extremity doppler u/s negative for DVTs - BNP 80 - Patient was given a trial of IV Lasix which improved the edema but increased her creatinine. We'll need to hold off on Lasix. We'll give TEDs. Leukocytosis with neutrophilia - may be secondary to pain/stress response - WBC elevated at 12.5 with neutrophilia, patient afebrile, without symptoms of UTI, c/o diarrhea - Improving. Secondary to C. difficile. See treatment above. Anemia likely secondary to chronic illness - Hemoglobin 9.3, HCT 29.6 -Stable. No signs of active bleeding. DVT prophylaxis - INR 2.2 on admission - Continue Coumadin with pharmacy consultation for therapeutic monitoring and dosing patient reports taking both Coumadin and Lovenox - restarted Coumadin given therapeutic INR but will defer dual therapy with Lovenox and Coumadin to Dr. Hester's expertise as I suspect she was just being bridged from Lovenox to Coumadin. . Mona Ordonez MD Apr 26, 2017 12:40
[2017-04-26] MEDS: WARFARIN SOD 5 MG TAB PO SCH (16:17)
[2017-04-27] VITALS (7 sets, daily range): BP systolic 103–123; BP diastolic 62–70; PULSE 112–127; RESP 16–20; TEMP 98–100; O2SAT 96–99
[2017-04-27 03:22] LABS: BACTERIA, URINE MOD /hpf; BILIRUBIN, URINE NEG (NEG); BLOOD, URINE LARGE (NEG); GLUCOSE,URINE NEG (NEG); HYALINE CAST, URINE 16 /lpf (RARE); KETONE, URINE NEG (NEG); MUCUS URINE FEW /lpf (OCC); NITRITE,URINE NEG (NEG); RENAL EPITHELIAL CELLS <1 /hpf; SQUAMOUS EPITHELIAL CELL URINE 13 /hpf (0-5); URINE COLOR YELLOW (YELLW/STRAW); URINE LEUKOCYTE ESTERASE LARGE (NEG); WHITE BLOOD CELL CLUMPS MOD
[2017-04-27] MEDS: HYDROmorphone HCL PF 2 MG/ML VIAL IV PUSH PRN ×4 (03:45→10:55)
[2017-04-27] MEDS: SODIUM CHLORIDE 0.9% FLUSH 10 ML FLUSH IV FLUSH SCH ×2 (08:08→23:58)
[2017-04-27] MEDS: DOCUSATE SODIUM 50 MG/SENNA 8.6 MG TAB PO SCH ×2 (08:08→21:00)
[2017-04-27] MEDS: VANCOMYCIN 500 MG VIAL (FOR ORAL USE ONLY) PO SCH ×3 (08:08→18:10)
--- NOTE | 2017-04-27 08:53 | HHI.PR ---
Subjective Remarks Follow-up for intractable pain, lower extremity edema, mild renal insufficiency , and C. difficile colitis Still pending labs from this morning. Patient states she is feeling better. She has not made any urine since last night. She stated diarrhea has improved. Patient stated pain is not controlled. Otherwise she has no other complaints. She remains afebrile. Objective Vitals Vital Signs Date Time Temp Pulse Resp B/P (MAP) Pulse Ox O2 Delivery O2 Flow Rate FiO2 04/27/17 08:26 98.6 126 18 109/62 (78) 96 04/27/17 03:38 112 04/27/17 03:15 98.3 120 16 112/69 (83) 99 04/26/17 23:31 98.3 120 17 108/66 (80) 98 04/26/17 19:40 98.5 120 16 110/68 (82) 100 04/26/17 18:24 98.2 121 18 132/70 (90) 99 04/26/17 13:38 97.6 119 20 101/59 (73) 96 04/26/17 10:42 18 I/O 04/26/17 04/26/17 04/26/17 04/27/17 04/27/17 04/27/17 07:00 15:00 23:00 07:00 15:00 23:00 Output Total 600 ml Balance -600 ml Output Urine Total 600 ml Result Diagram: 04/26/17 1021 04/26/17 1021 Imaging Last Impressions Chest X-Ray 04/25/17 1310 Signed Impressions: Service Date/Time: Tuesday, April 25, 2017 13:33 - CONCLUSION: 1. Multiple bilateral pulmonary nodules concerning for metastatic disease. 2. Interval removal of the left subclavian Esjrua-q-Vefn catheter and placement of a right subclavian Yxnwvo-r-Gwdr catheter. No pneumothorax. 3. Heart size is normal. No superimposed acute infiltrate. Kwabena Palmer MD Lower Extremity Ultrasound 04/25/17 0000 Signed Impressions: Service Date/Time: Tuesday, April 25, 2017 13:34 - CONCLUSION: 1. Enlarged bilateral inguinal lymph nodes. The largest on the right measures 5 cm in diameter. Nodes are suspicious. 2. No DVT. Kwabena Palmer MD Objective Remarks GENERAL: in NAD CARDIOVASCULAR: Regular rate and rhythm without murmurs, gallops, or rubs. RESPIRATORY: Breath sounds equal bilaterally. No accessory muscle use. GASTROINTESTINAL: Abdomen soft, non-tender, nondistended. MUSCULOSKELETAL: +2 lower extremity edema to the knee. Medications and IVs Current Medications Hydromorphone HCl (Dilaudid Pf Inj) 0.5 mg ONCE ONCE IV PUSH Last administered on 04/25/17 14:45; Start 04/25/17 at 13:45; Stop 04/25/17 at 13 :46; Status DC Sodium Chloride (NS Flush) 2 ml UNSCH PRN IV FLUSH FLUSH AFTER USING IV ACCESS Last administered on 04/26/17 07:40; Start 04/25/17 at 18:15 Sodium Chloride (NS Flush) 2 ml BID IV FLUSH Last administered on 04/27/17 08 :08; Start 04/25/17 at 21:00 Naloxone HCl (Narcan Inj) 0.4 mg UNSCH PRN IV PUSH SEE LABEL COMMENTS; Start 04/25/17 at 18:15 Hydromorphone HCl (Dilaudid Pf Inj) 2 mg Q3H PRN IV PUSH pain >5 Last administered on 04/27/17 08:08; Start 04/25/17 at 18:15 Furosemide (Lasix Inj) 20 mg ONCE ONCE IV PUSH Last administered on 04:52; Start 04/26/17 at 04:45; Stop 04/26/17 at 04:48; Status DC Potassium Bicarb/ Potassium Chloride (K-Lyte Cl Eff) 25 meq ONCE ONCE PO Last administered on 04/26/17 04:52; Start 04/26/17 at 04:45; Stop 04/26/17 at 04:47; Status DC Lactulose (Lactulose Liq) 30 ml Q6H PRN PO CONSTIPATION; Start 04/26/17 at 05: 15 Senna/Docusate Sodium (Julieta-Colace) 1 tab BID PO ; Start 04/26/17 at 09:00 Warfarin Sodium (Coumadin) 5 mg DAILY@1600 PO Last administered on 04/26/17 16:17; Start 04/26/17 at 16:00 Fentanyl (Duragesic 25 Mcg Patch.72 Hr) 1 patch Q3D T-DERMAL Last administered on 04/26/17 09:42; Start 04/26/17 at 09:00 Miscellaneous Information 1 Q3D T-DERMAL ; Start 04/29/17 at 09:00 Pharmacy Profile Note 0 ml @ 0 mls/hr UNSCH OTHER ; Start 04/26/17 at 05:45 Vancomycin HCl (VANCOMYCIN for oral use only) 125 mg QID PO Last administered on 04/27/17 08:08; Start 04/26/17 at 09:00 Patient Medication Teaching (Coumadin Booklet) 1 ONCE ONCE OTHER Last administered on 04/26/17 16:19; Start 04/26/17 at 15:00; Stop 04/26/17 at 15 :01; Status DC A/P Problem List: (1) Cancer associated pain ICD Code: G89.3 - Neoplasm related pain (acute) (chronic) Status: Acute (2) Protein calorie malnutrition ICD Code: E46 - Unspecified protein-calorie malnutrition (3) Diarrhea ICD Code: R19.7 - Diarrhea, unspecified Assessment and Plan Mrs. 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 She is also complaining of worsening bilateral lower extremity edema. She was admitted for pain management under the hospitalist service. Stage IV adenocarcinoma with liver and lung mets with intractable pain - has been unable to start chemotherapy - Pending consult from Dr. Hester - continue home Fentanyl patch 25 mcg q72h. Pending palliative care recommendation and regards to pain control for patient. - Dilaudid 2 mg IV q3h prn Pain > 5 Protein Calorie Malnutrition - Albumin 1.9 - Tip Cementer consulted for recommendations C. difficile colitis. -Diarrhea is improving. - Continue with oral vancomycin. Bilateral lower extremity edema, pitting - suspect multifactorial in nature - hypoalbuminemia, history of bilateral LE DVTs, large inguinal lymph nodes may impede blood return - Bilateral lower extremity doppler u/s negative for DVTs - BNP 80 - Patient was given a trial of IV Lasix which improved the edema but increased her creatinine. Lasix held pending BMP from this morning. Mild renal insufficiency -May be secondary to Lasix use versus decreased perfusion due to hypoalbuminemia. -Still pending lab work from today. -She has not had any urine output since yesterday will do a bladder scan and straight catheter if needed. Continue strict ins and outs. Continue to trend creatinine. Leukocytosis with neutrophilia - may be secondary to pain/stress response - WBC elevated at 12.5 with neutrophilia, patient afebrile, without symptoms of UTI, c/o diarrhea - Improving. Secondary to C. difficile. See treatment above. Anemia likely secondary to chronic illness - Hemoglobin 9.3, HCT 29.6 -Stable. No signs of active bleeding. DVT prophylaxis - INR 2.2 on admission - Continue Coumadin with pharmacy consultation for therapeutic monitoring and dosing patient reports taking both Coumadin and Lovenox - restarted Coumadin given therapeutic INR but will defer dual therapy with Lovenox and Coumadin to Dr. Hester's expertise as I suspect she was just being bridged from Lovenox to Coumadin. . Mona Ordonez MD Apr 27, 2017 08:53
--- NOTE | 2017-04-27 12:37 | MB ---
cc: KARYN MUIR DATE OF CONSULTATION: 04/26/2017 REASON FOR CONSULTATION: Patient with diffuse metastatic carcinoma who presents to the emergency department with intractable pain. HISTORY OF PRESENT ILLNESS This is a 51-year-old female who was recently diagnosed with stage IV adenocarcinoma, with liver and lung metastasis with unknown primary. She has a history of cervical cancer diagnosed in 2005. She was residing in [facility] and according to the patient she received radiation and chemotherapy. The records are not available. Subsequently she moved to [facility]. She recently had DVT in her left lower extremity. She was in [place] at that time. She has been on anticoagulation. The patient was seen in the oncology clinic and she was undergoing staging workup. She had a PET scan which revealed diffuse disease involving her lung, abdomen and bones. She has been anemic as well. She has received blood transfusions as well as iron infusions. She now presents to the emergency department with intractable pain. She states that she hurts all over but more specifically her pain is in lower spine. Her appetite has been poor, she is losing weight. On admission her albumin was very low at 1.9. She has bilateral lower extremity edema. The patient was admitted to the hospital. REVIEW OF SYSTEMS A comprehensive 14-point review of systems was completed which is negative except as described in the HPI. PAST MEDICAL HISTORY 1. Stage IV adenocarcinoma of unknown primary 2. history of cervical cancer in 2005 treated with chemotherapy and radiation treatments. 3. Bilateral lower extremity DVT 4. Severe peripheral neuropathy. PAST SURGICAL HISTORY 1. Tonsillectomy 2. Hernia repair 3. Total hysterectomy 4. Left nephrostomy tube placement 5. Left Port 2 fracture. 6. Left port removal. MEDICATIONS 1. Coumadin 5 mg p.o. daily 2. senna. 3. Docusate 1 tablet p.o. b.i.d. 4. Fentanyl patch 25 mcg q.72 h. 5. Vancomycin 125 mg p.o. q.i.d. 6. lactulose 7. Narcan 8. Dilaudid 2 mg IV q three hours. ALLERGIES LEVOFLOXACIN METRONIDAZOLE PENICILLIN FAMILY HISTORY: Family history was reviewed and noncontributory to this admission. SOCIAL HISTORY She denies any tobacco abuse. No alcohol abuse. No illicit drug use. PHYSICAL EXAMINATION: VITAL SIGNS: Blood pressure is 108/66, pulse is in the 100, temperature is 98.3, O2 sats are 98% on room air. IN GENERAL: Chronically ill-appearing female currently in no apparent distress. HEAD, EYES, EARS, NOSE, AND THROAT: Pupils are equal, round, reactive to light. Extraocular muscles intact. No oral thrush. No lesions. NECK: Neck is supple. No JVD, no bruits. No lymphadenopathy. CHEST: The chest is clear to auscultation bilaterally. CARDIAC: S1-S2 regular rate and rhythm. ABDOMEN: The abdomen is soft, nontender, nondistended. Bowel sounds are present. EXTREMITIES: Without any edema, erythema. Bilateral lower extremity 2+ edema. BACK: She has pain in her lower back which lower back in the distal be tender in the L4-L5 distribution. She denies any focal symptoms. IMAGING STUDIES Lower extremity deep venous thrombosis shows enlarged bilateral inguinal lymph node, the largest in the right which measures 5 cm. A Chest x-ray Shows multiple bilateral pulmonary nodules which have been seen before. ASSESSMENT/PLAN This is a 51-year-old female with a history of stage IV adenocarcinoma of unknown primary. This was thought to be possibly primary neoplasm of upper digestive origin, such has cholangio, pancreatic or gastric. She now presents to the emergency department with intractable pain. 1. Intractable pain in lower lumbar distribution in patient with a history of diffusely metastatic adenocarcinoma. I have reviewed her PET scan and she has diffuse disease in her lungs, in her abdomen as well as her skeleton. Since she is having severe pain in the lower back. I will obtain an MRI of the lumbar spine with and without contrast. We will continue pain control for this patient, in addition to the fentanyl patch we will start her on short-acting morphine 15 mg p.o. q.4-6 hs. Further recommendations will be made once the results of the MRI are available. From the her metastatic carcinoma standpoint; he was to receive chemotherapy outpatient. 2. Malnutrition with a very low albumin, consult dietitian. Encourage oral intake start Ensure p.o. t.i.d. We will try a brief course of steroids. 3. Anemia with hemoglobin of 8.4. We will obtain anemia studies. She was iron deficit in the past. She may require more iron infusions. Thank you for allowing me to participate in the care of this patient. I will continue to follow this patient along. MD Chris Carrillo /12:12 AM /11:57 AM MTDAntonio
[2017-04-27 13:05] LABS: INTERNATIONAL NORMALIZED RATIO 1.8 RATIO; PROTHROMBIN TIME - PATIENT 18.2 SEC (9.8-11.6)
--- NOTE | 2017-04-27 14:33 | PD.ONC.PN ---
Subjective Subjective Remarks Afebrile overnight. Patient continuing to have severe pain in low back. She states the dilaudid helps but she is requiring IV dilaudid consistently every few hours. She is very anxious because she feels the need to urinate but feels she is unable to. Nurse is calling urology. Objective Data Date Time Temp Pulse Resp B/P (MAP) Pulse Ox O2 Delivery O2 Flow Rate FiO2 04/27/17 13:02 98.0 127 20 123/68 (86) 98 04/27/17 08:26 98.6 126 18 109/62 (78) 96 04/27/17 03:38 112 04/27/17 03:15 98.3 120 16 112/69 (83) 99 04/26/17 23:31 98.3 120 17 108/66 (80) 98 04/26/17 19:40 98.5 120 16 110/68 (82) 100 04/26/17 18:24 98.2 121 18 132/70 (90) 99 Result Diagram: 04/26/17 1021 04/26/17 1021 Laboratory Results Laboratory Tests Test 04/27/17 03:00 04/27/17 12:47 Urine Color YELLOW Urine Turbidity CLOUDY Urine pH 6.0 Urine Specific Ava 1.015 Urine Protein 100 mg/dL Urine Glucose (UA) NEG mg/dL Urine Ketones NEG mg/dL Urine Occult Blood LARGE Urine Nitrite NEG Urine Bilirubin NEG Urine Urobilinogen LESS THAN 2.0 MG/DL Urine Leukocyte Esterase LARGE Urine RBC /hpf Urine WBC /hpf Urine WBC Clumps MOD Urine Squamous Epithelial Cells 13 /hpf Urine Renal Epithelial Cells <1 /hpf Urine Bacteria MOD /hpf Urine Hyaline Casts 16 /lpf Urine Granular Casts 3 /lpf Urine Mucus FEW /lpf Microscopic Urinalysis Comment CULTURE INDICATED Prothrombin Time 18.2 SEC Prothromb Time International Ratio 1.8 RATIO Culture Results Microbiology Date/Time Source Procedure Growth Status 04/27/17 03:00 Urine Clean Catch Urine Culture Pending Received Administered Medications Medications (Trade) Dose Ordered Sig/Erendira Route PRN Reason Start Time Stop Time Status Last Admin Dose Admin Sodium Chloride (NS Flush) 2 ml UNSCH PRN IV FLUSH FLUSH AFTER USING IV ACCESS 04/25/17 18:15 04/26/17 07:40 Sodium Chloride (NS Flush) 2 ml BID IV FLUSH 04/25/17 21:00 04/27/17 08:08 Hydromorphone HCl (Dilaudid Pf Inj) 2 mg Q3H PRN IV PUSH pain >5 04/25/17 18:15 04/27/17 10:55 Warfarin Sodium (Coumadin) 5 mg DAILY@1600 PO 04/26/17 16:00 04/26/17 16:17 Fentanyl (Duragesic 25 Mcg Patch.72 Hr) 1 patch Q3D T-DERMAL 04/26/17 09:00 04/26/17 09:42 Vancomycin HCl (VANCOMYCIN for oral use only) 125 mg QID PO 04/26/17 09:00 04/27/17 08:08 Objective Remarks GENERAL: Well-nourished, well-developed patient. SKIN: Warm and dry. HEAD: Normocephalic. EYES: No scleral icterus. No injection or drainage. NECK: Supple, trachea midline. No JVD or lymphadenopathy. LYMPHATIC: No adenopathy. CARDIOVASCULAR: Regular rate and rhythm without murmurs. RESPIRATORY: Breath sounds equal bilaterally. No accessory muscle use. GASTROINTESTINAL: Abdomen soft, non-tender, nondistended. EXTREMITIES: No cyanosis, or edema. MUSCULOSKELETAL: Adequate muscle tone. NEUROLOGICAL: No obvious focal deficit. Awake, alert, and oriented x3. PSYCHIATRIC: Appropriate mood and affect; insight and judgment normal. Assessment/Plan Problem List: (1) Metastatic disease ICD Codes: C79.9 - Secondary malignant neoplasm of unspecified site Plan: --history of stage IV adenocarcinoma of unknown primary. --thought to be possibly primary neoplasm of upper digestive origin, such has cholangio, pancreatic or gastric. (2) Normocytic anemia ICD Codes: D64.9 - Anemia, unspecified Plan: --obtain anemia studies. --has been iron deficient in the past. --may need IV iron (3) Cancer associated pain ICD Codes: G89.3 - Neoplasm related pain (acute) (chronic) Status: Acute Plan: --intractable pain in lower lumbar distribution in patient with a history of diffusely metastatic adenocarcinoma. --PET scan shows diffuse disease in lungs, abdomen and skeleton. --MRI lumbar spine pending --currently on Fentanyl patch 25mcg qTD q 72hrs + Dilaudid 2mg IV q 3 hours (4) DVT (deep venous thrombosis) ICD Codes: I82.409 - Acute embolism and thrombosis of unspecified deep veins of unspecified lower extremity Status: Chronic Plan: --on coumadin (5) C. difficile diarrhea ICD Codes: A04.72 - Enterocolitis due to Clostridium difficile, not specified as recurrent Plan: --on PO Vanco Assessment 51y/o female with stage IV adenocarcinoma, with liver and lung metastasis with unknown primary admitted with intractable pain mostly in lower spine. --was residing in [facility] and according to the patient she received radiation and chemotherapy. Subsequently she moved to [facility]. --recently had DVT in her left lower extremity. was in [place] at that time. has been on anticoagulation. PET scan-->diffuse disease involving her lung, abdomen and bones. history of cervical cancer in 2005 treated with chemotherapy and radiation treatments. Bilateral lower extremity DVT Severe peripheral neuropathy. Plan 1. patient remains in severe pain, will await MRI lumbar spine. She used approximately 14mg IV Dilaudid over the past 24 hours which is equivalent to 280mg of morphine. Will stop her Fentanyl patch and start Oramorph 60mg PO q 8 hours and increase the Dilaudid 2mg IV to q 2 hours 2. obtain anemia studies 3. continue PO Vanco 4. agree with urology consult. 5. patient was unable to obtain MRI lumber spine earlier today due to pain. with the difficulty urinating we are concerned for the possibility of cord compression, will give pain medication just prior and attempt MRI again. Attending Statement The exam, history, and the medical decision-making described in the above note were completed with the assistance of the mid-level provider. I reviewed and agree with the findings presented. I attest that I had a [id number] encounter with the patient on the same day, and personally performed and documented my assessment and findings in the medical record Visibly in discomfort- unable to void. abdomen distended Attempt by nurses to cath were un-successful Urology has been contacted for assistance with placement of Sloan catheter MRI could not be completed earlier due to inability to lye flat --due to pain will attempt to complete MRI again once sloan catheter has been placed and will IV Dilaudid prior to MRI pain Meds adjusted as above Anemia of chronic inflammation and iron deficiency--ferritin elevated Transfuse to keep Hb > 7.5 or if symptomatic complex patient with multiple issues Stage IV adenocarcinoma with unknown primary--hx of cervical cancer////but pathology points towards a GI malignancy Patient has a history of severe neuropathy systemic therapy once clinical stable and acute issues addressed Likely in the outpatient setting will make sure that port is functional prior to d/c d/w rn o/n events reviewed Problem Qualifiers (1) DVT (deep venous thrombosis): Debra Newell Apr 27, 2017 14:33 Coleman Hester MD Apr 27, 2017 22:22
[2017-04-27] MEDS ORDERED: fentaNYL 75 MCG/HR PATCH T-DERMAL SCH (14:45)
[2017-04-27 15:25] LABS: HEMATOCRIT 26.4 % (35.0-46.0); HEMOGLOBIN 8.7 GM/DL (11.6-15.3); MEAN CELL VOLUME 85.3 FL (80.0-100.0); MEAN CORPUSCULAR HGB CONC 32.8 % (32.0-36.0); MEAN PLATELET VOLUME 7.9 FL (7.0-11.0); PLATELET COUNT 480 TH/MM3 (150-450); RED BLOOD COUNT 3.09 MIL/MM3 (4.00-5.30); RED CELL DISTRIBUTION WIDTH 17.5 % (11.6-17.2); WHITE BLOOD COUNT 13.3 TH/MM3 (4.0-11.0)
[2017-04-27 15:52] LABS: BICARBONATE 25.8 MEQ/L (21.0-32.0); CALCIUM 9.5 MG/DL (8.5-10.1); CREATININE 1.5 MG/DL (0.50-1.00)
[2017-04-27] MEDS ORDERED: WARFARIN SOD 1 MG TAB PO ONE (16:00)
[2017-04-27] MEDS ORDERED: MORPHINE SULFATE 60 MG CONTROLLED RELEASE TAB PO SCH (16:00)
[2017-04-27] MEDS ORDERED: HYDROmorphone HCL PF 2 MG/ML VIAL IV PUSH ONE (16:00)
[2017-04-27] MEDS ORDERED: WARFARIN SOD 5 MG TAB PO SCH (16:00)
[2017-04-27] MEDS: WARFARIN SOD 5 MG TAB PO SCH (16:24)
[2017-04-27] MEDS ORDERED: LORazepam 2 MG/ML VIAL ONE (16:53)
[2017-04-27] MEDS ORDERED: SODIUM CHLORID 0.9% 500 ML INJ 500 ML IV ONE (17:00)
[2017-04-27] MEDS ORDERED: ALBUMIN 25% INJ 50 ML IV ONE (17:00)
--- NOTE | 2017-04-27 17:40 | PD.RAD ---
Post Procedure Progress Note Pre Procedure Diagnosis: (1) Urinary retention (2) Metastatic disease Post Procedure Diagnosis: (1) Urinary retention (2) Metastatic disease Procedure Date: Apr 27, 2017 Supervising Radiologist: Boubacar Vicente Proceduralist/Assist: Gianna Yousif, RT(R)(), MICHAELA Robles, RT(R)(CV) Anesthesia: Conscious Sedation Plan of Activity Patient to Unit: Nursing Unit Patient Condition: Good See PACS Report for procedural detail/treatment Boubacar Vicente MD Apr 27, 2017 17:40
--- NOTE | 2017-04-27 17:54 | MB ---
cc: DOROTHY LANE MD DATE OF CONSULTATION: 04/27/2017 REASON FOR CONSULTATION: Difficult catheterization. CURRENT HISTORY This is a 51-year-old who is here in the emergency room at [facility] who was initially treated for cervical carcinoma and 2006 in the [place] area receiving radiation and chemotherapy we do not have records available subsequently she has been in [place] and [place]. She recently transferred here from [place] as she has had a left percutaneous nephrostomy tube. I do not know this is totally internalized or not, nor does the patient. It evidently was malfunctioning. She tells me that she was at [facility] and there it was exchanged, but again we do not have any of those records either. The emergency room staff has tried to catheterize her, an ultrasound showed about 300 cc in her bladder. She has become increasingly uncomfortable from this. The patient states that in the past, they have been able to simply straight cath her. 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 PHYSICAL EXAMINATION: On physical exam her lower of dye abdomen is a bit distended. There were least a bit firmer this is tumor bladder on not certain. ASSESSMENT AND PLAN: I have called Dr. Kwabena Palmer in our interventional radiology department and ask for his assistance via an ultrasound to make certain that this is in fact the bladder and that we can place a suprapubic tube at least while she is here in the hospital so that we can relieve her of some of that pressure. Perhaps a tube can be placed through the urethra from the bladder side but least right now I am unable to obtain access through the vaginal vault. MD SNADRA Leal/david /4:14 PM /5:25 PM
[2017-04-27] MEDS ORDERED: IOHEXOL 350 MG/ML 50 ML BTL (for RAD DIAG) OTHER ONE (18:00)
[2017-04-27] MEDS: MORPHINE SULFATE 30 MG CONTROLLED RELEASE TAB PO SCH (18:30)
[2017-04-27] MEDS: SODIUM CHLOR 0.9% 1000 ML INJ 1,000 ML IV SCH (19:41)
[2017-04-27 19:57] LABS: RETIC # 64.7 MIL/L (20.0-150.0); RETIC % 2.1 % (0.4-3.0)
[2017-04-27 20:08] LABS: % SATURATION IRON PROFILE 4.4 % (20-50); IRON (FE) 8 MCG/DL (50-170); TOTAL IRON BINDING CAPACITY 183 MCG/DL (250-450)
[2017-04-27 20:33] LABS: FERRITIN 1291 NG/ML (8-252); FOLATE 3.4 NG/ML (3.1-17.5)
[2017-04-27] MEDS ORDERED: GADODIAMIDE PF 287 MG/ML 5 ML VIAL (for RAD MRI) IV PUSH ONE (23:11)
--- NOTE | 2017-04-27 23:37 | RADRPT ---
EXAM DATE/TIME: 04/27/2017 22:00 [facility] COMPARISON: CT ABDOMEN & PELVIS W/O CONTRAST, March 16, 2017, 21:59. MRI LUMBAR SPINE W/O CONTRAST, March 15, 2017, 19:28. INDICATIONS : Metastatic disease. CONTRAST: 12 cc Omniscan (gadodiamide) IV MEDICAL HISTORY : Cervical ca/metastatic disease. SURGICAL HISTORY : Tonsillectomy. Hysterectomy. Left nephrostomy. ENCOUNTER: Initial ACUITY: 2 weeks PAIN SCORE: 6/10 LOCATION: back TECHNIQUE: Multiplanar multisequence MRI of the lumbar spine was performed with and without contrast. FINDINGS: There is homogeneously altered marrow signal within the L5 and within the visualized sacrum, likely r elated to previous radiation treatment to this field. There are no focal areas of alteration of marro w signal to suggest metastatic disease. Lumbar spine alignment is satisfactory. The lumbar canal is widely patent. There is no evidence of fo raminal stenosis. No significant disc protrusion is identified. No paraspinal mass or collection is e vident. Elsewhere in the exam, note is made of findings widespread metastatic disease including multiple live r lesions and multifocal adenopathy. CONCLUSION: No acute findings in the lumbar spine. David Miranda MD on April 27, 2017 at 23:27 Board Certified Radiologist. This report was verified electronically.
[2017-04-28] VITALS (13 sets, daily range): BP systolic 107–137; BP diastolic 55–81; PULSE 107–138; RESP 14–18; TEMP 97.6–99.3; O2SAT 94–100
--- NOTE | 2017-04-28 00:11 | RADRPT ---
EXAM DATE/TIME: 04/27/2017 22:00 [facility] COMPARISON: SUPRAPUBIC TUBE PLACEMENT, April 27, 2017, 17:54. US GUIDED NEEDLE PLACEMENT, April 27, 2017, 19:00. INDICATIONS : Metastatic disease. CONTRAST: 12 cc Omniscan (gadodiamide) IV MEDICAL HISTORY : Cervical ca/metastatic disease. SURGICAL HISTORY : Hysterectomy. Tonsillectomy. Left nephrostomy. ENCOUNTER: Initial ACUITY: 2 weeks PAIN SCORE: 6/10 LOCATION: Lower back. TECHNIQUE: Multiplanar multisequence MRI examination of the sacrum/coccyx was performed. FINDINGS: There is extensive susceptibility artifact associated with embolization coil material in the internal iliac distributions bilaterally. Ureteral stents and suprapubic tube are present. There is fairly diffuse signal change present within the marrow of the ramo and sacrum which may rela te to previous radiation therapy. There is no suspicious foci to specifically suggest metastatic dise ase, however the patient is known to have widely metastatic disease elsewhere. CONCLUSION: Marrow signal changes within the bony elements of the sacrum and ramo potentially related to previous radiation. Soft tissue elements significantly obscured by streak associated with embolization coils and other foreign components in the pelvis. David Miranda MD on April 28, 2017 at 0:03 Board Certified Radiologist. This report was verified electronically.
[2017-04-28] MEDS: VANCOMYCIN 500 MG VIAL (FOR ORAL USE ONLY) PO SCH ×5 (00:30→20:27)
[2017-04-28] MEDS: SODIUM CHLOR 0.9% 1000 ML INJ 1,000 ML IV SCH (00:32)
[2017-04-28] MEDS: MORPHINE SULFATE 30 MG CONTROLLED RELEASE TAB PO SCH ×3 (01:43→17:25)
[2017-04-28 07:16] LABS: HEMATOCRIT 22.6 % (35.0-46.0); HEMOGLOBIN 7.2 GM/DL (11.6-15.3); MEAN CELL VOLUME 85.5 FL (80.0-100.0); MEAN CORPUSCULAR HEMOGLOBIN 27.4 PG (27.0-34.0); MEAN CORPUSCULAR HGB CONC 32.1 % (32.0-36.0); PLATELET COUNT 428 TH/MM3 (150-450); RED BLOOD COUNT 2.64 MIL/MM3 (4.00-5.30); WHITE BLOOD COUNT 14.5 TH/MM3 (4.0-11.0)
[2017-04-28 07:20] LABS: INTERNATIONAL NORMALIZED RATIO 1.9 RATIO; PROTHROMBIN TIME - PATIENT 18.8 SEC (9.8-11.6)
[2017-04-28 07:34] LABS: BICARBONATE 24.2 MEQ/L (21.0-32.0); CREATININE 1.27 MG/DL (0.50-1.00)
[2017-04-28] MEDS: DOCUSATE SODIUM 50 MG/SENNA 8.6 MG TAB PO SCH ×2 (09:00→20:28)
--- NOTE | 2017-04-28 09:38 | PD.ONC.PN ---
Subjective Subjective Remarks Tmax 100F overnight. Underwent suprapubic catheter placement yesterday. States pain is somewhat better controlled today with Oramorph, but she says she is not sure how she will feel when she starts moving around. Pain is still predominantly in the low back and "everywhere." Objective Data Date Time Temp Pulse Resp B/P (MAP) Pulse Ox O2 Delivery O2 Flow Rate FiO2 04/28/17 07:00 99.3 136 18 131/60 (83) 98 04/28/17 04:09 122 04/28/17 02:44 20 04/28/17 01:04 126 04/28/17 01:00 98.7 125 18 137/81 (99) 100 04/27/17 19:16 100.0 122 16 113/70 (84) 97 04/27/17 18:20 115 16 103/69 (80) 96 04/27/17 13:02 98.0 127 20 123/68 (86) 98 04/28/17 04/28/17 04/28/17 07:00 15:00 23:00 Output Total 300 ml Balance -300 ml Result Diagram: 04/28/17 0545 04/28/17 0545 Laboratory Results Laboratory Tests Test 04/27/17 12:47 04/27/17 15:02 04/27/17 15:16 04/28/17 05:45 Prothrombin Time 18.2 SEC 18.8 SEC Prothromb Time International Ratio 1.8 RATIO 1.9 RATIO White Blood Count 13.3 TH/MM3 14.5 TH/MM3 Red Blood Count 3.09 MIL/MM3 2.64 MIL/MM3 Hemoglobin 8.7 GM/DL 7.2 GM/DL Hematocrit 26.4 % 22.6 % Mean Corpuscular Volume 85.3 FL 85.5 FL Mean Corpuscular Hemoglobin 28.0 PG 27.4 PG Mean Corpuscular Hemoglobin Concent 32.8 % 32.1 % Red Cell Distribution Width 17.5 % 18.0 % Platelet Count 480 TH/MM3 428 TH/MM3 Mean Platelet Volume 7.9 FL 8.0 FL Reticulocyte Count 2.1 % Absolute Reticulocyte Count 64.7 MIL/L Iron Level 8 MCG/DL Total Iron Binding Capacity 183 MCG/DL Percent Iron Saturation 4.4 % Ferritin 1291 NG/ML Vitamin B12 Level GREATER THAN 2000 PG/ML Folate 3.4 NG/ML Blood Urea Nitrogen 31 MG/DL 30 MG/DL Creatinine 1.50 MG/DL 1.27 MG/DL Random Glucose 119 MG/DL 102 MG/DL Calcium Level 9.5 MG/DL 9.0 MG/DL Sodium Level 134 MEQ/L 136 MEQ/L Potassium Level 3.9 MEQ/L 4.3 MEQ/L Chloride Level 99 MEQ/L 103 MEQ/L Carbon Dioxide Level 25.8 MEQ/L 24.2 MEQ/L Anion Gap 9 MEQ/L 9 MEQ/L Estimat Glomerular Filtration Rate 44 ML/MIN 53 ML/MIN Culture Results Microbiology Date/Time Source Procedure Growth Status 04/27/17 03:00 Urine Clean Catch Urine Culture Pending Received Administered Medications Medications (Trade) Dose Ordered Sig/Erendira Route PRN Reason Start Time Stop Time Status Last Admin Dose Admin Sodium Chloride (NS Flush) 2 ml UNSCH PRN IV FLUSH FLUSH AFTER USING IV ACCESS 04/25/17 18:15 04/26/17 07:40 Sodium Chloride (NS Flush) 2 ml BID IV FLUSH 04/25/17 21:00 04/27/17 23:58 Warfarin Sodium (Coumadin) 5 mg DAILY@1600 PO 04/26/17 16:00 04/27/17 16:24 Vancomycin HCl (VANCOMYCIN for oral use only) 125 mg QID PO 04/26/17 09:00 04/28/17 00:30 Sodium Chloride 1,000 ml @ 50 mls/hr Q20H IV 04/27/17 17:00 04/27/17 19:41 Morphine Sulfate (Oramorph Sr) 60 mg Q8H PO 04/27/17 18:00 04/28/17 01:43 Objective Remarks GENERAL: Pleasant thin female lying in bed. appears comfortable. SKIN: Warm and dry. HEAD: Normocephalic. EYES: No scleral icterus. No injection or drainage. NECK: Supple, trachea midline. CARDIOVASCULAR: Regular rate and rhythm RESPIRATORY: Breath sounds equal bilaterally. No accessory muscle use. GASTROINTESTINAL: Abdomen soft, non-tender, nondistended. : suprapubic catheter draining red urine. left nephrostomy tube draining clear yellow urine. EXTREMITIES: No cyanosis NEUROLOGICAL: No obvious focal deficit. Awake, alert, and oriented x3. Assessment/Plan Problem List: (1) Metastatic disease ICD Codes: C79.9 - Secondary malignant neoplasm of unspecified site Plan: --history of stage IV adenocarcinoma of unknown primary. --thought to be possibly primary neoplasm of upper digestive origin, such has cholangio, pancreatic or gastric. (2) Normocytic anemia ICD Codes: D64.9 - Anemia, unspecified Plan: --obtain anemia studies. --has been iron deficient in the past. --may need IV iron (3) Cancer associated pain ICD Codes: G89.3 - Neoplasm related pain (acute) (chronic) Status: Acute Plan: --intractable pain in lower lumbar distribution in patient with a history of diffusely metastatic adenocarcinoma. --PET scan shows diffuse disease in lungs, abdomen and skeleton. --MRI lumbar spine pending --currently on oRAMORPH 60mg PO q 8+ Dilaudid 2mg IV q 2 hours (4) DVT (deep venous thrombosis) ICD Codes: I82.409 - Acute embolism and thrombosis of unspecified deep veins of unspecified lower extremity Status: Chronic Plan: --on coumadin (5) C. difficile diarrhea ICD Codes: A04.72 - Enterocolitis due to Clostridium difficile, not specified as recurrent Plan: --on PO Vanco Assessment 51y/o female with stage IV adenocarcinoma, with liver and lung metastasis with unknown primary admitted with intractable pain mostly in lower spine. --was residing in [facility] and according to the patient she received radiation and chemotherapy. Subsequently she moved to [place] and [place]. --recently had DVT in her left lower extremity. was in [place] at that time. has been on anticoagulation. PET scan-->diffuse disease involving her lung, abdomen and bones. history of cervical cancer in 2005 treated with chemotherapy and radiation treatments. Bilateral lower extremity DVT Severe peripheral neuropathy. Plan 1. continue pain management. 2. continue PO vanco Attending Statement The exam, history, and the medical decision-making described in the above note were completed with the assistance of the mid-level provider. I reviewed and agree with the findings presented. I attest that I had a [id number] encounter with the patient on the same day, and personally performed and documented my assessment and findings in the medical record. previous ct scan of abdomen reviewed as well as current chest film and notes from Dr. Fang. She has progressive tumor and declining performance status. I spoke with patient and daughter that an option would be supportive care ie. hospice if chemotherapy not pursued. This decision will rest with Dr. Peña and family. In meantime will continue to try to control pain due to tumor in pelvis. will transfuse one unit of packed cells. Problem Qualifiers (1) DVT (deep venous thrombosis): Debra Newell Apr 28, 2017 09:38 Yosi Glass MD Apr 28, 2017 11:49
[2017-04-28] MEDS: SODIUM CHLORIDE 0.9% FLUSH 10 ML FLUSH IV FLUSH SCH ×2 (10:04→20:28)
[2017-04-28] MEDS ORDERED: diphenhydrAMINE HCL 25 MG CAP PO PRN (11:30)
[2017-04-28] MEDS ORDERED: ACETAMINOPHEN 325 MG TAB PO PRN (11:30)
[2017-04-28] MEDS ORDERED: SODIUM CHLOR 0.9% 250 ML INJ 250 ML IV ONE (11:30)
--- NOTE | 2017-04-28 15:12 | HHI.PR ---
Subjective Remarks Follow-up metastasis disease and pain/anemia of chronic disease/DHEERAJ 04/28/17-patient seen and examined, complains of mild low back pain. Consistently tachycardia. Positive for hematuria. Low-grade fever yesterday at 7 PM with Tmax 100 however currently afebrile Objective Vitals Vital Signs Date Time Temp Pulse Resp B/P (MAP) Pulse Ox O2 Delivery O2 Flow Rate FiO2 04/28/17 11:57 16 04/28/17 10:30 98.3 138 16 119/76 (90) 98 04/28/17 07:00 99.3 136 18 131/60 (83) 98 04/28/17 04:09 122 04/28/17 01:04 126 04/28/17 01:00 98.7 125 18 137/81 (99) 100 04/27/17 19:16 100.0 122 16 113/70 (84) 97 04/27/17 18:20 115 16 103/69 (80) 96 I/O 04/27/17 04/27/17 04/27/17 04/28/17 04/28/17 04/28/17 07:00 15:00 23:00 07:00 15:00 23:00 Intake Total 500 ml Output Total 400 ml 300 ml Balance 100 ml -300 ml Intake IV Total 500 ml Output Urine Total 100 ml 300 ml Drainage Total 300 ml Bladder Scan Volume Amount 325 ml # Bowel Movements 0 1 Result Diagram: 04/28/17 0545 04/28/17 0545 Imaging Last Impressions Sacrum/Coccyx MRI 04/27/17 0000 Signed Impressions: Service Date/Time: Thursday, April 27, 2017 22:00 - CONCLUSION: Marrow signal changes within the bony elements of the sacrum and ramo potentially related to previous radiation. Soft tissue elements significantly obscured by streak associated with embolization coils and other foreign components in the pelvis. David Miranda MD Lumbar Spine MRI 04/27/17 0000 Signed Impressions: Service Date/Time: Thursday, April 27, 2017 22:00 - CONCLUSION: No acute findings in the lumbar spine. David Miranda MD Chest X-Ray 04/25/17 1310 Signed Impressions: Service Date/Time: Tuesday, April 25, 2017 13:33 - CONCLUSION: 1. Multiple bilateral pulmonary nodules concerning for metastatic disease. 2. Interval removal of the left subclavian [id number] catheter and placement of a right subclavian [id number]-[id number] catheter. No pneumothorax. 3. Heart size is normal. No superimposed acute infiltrate. Kwabena Palmer MD Lower Extremity Ultrasound 04/25/17 0000 Signed Impressions: Service Date/Time: Tuesday, April 25, 2017 13:34 - CONCLUSION: 1. Enlarged bilateral inguinal lymph nodes. The largest on the right measures 5 cm in diameter. Nodes are suspicious. 2. No DVT. Kwabena Palmer MD Objective Remarks GENERAL: NAD SKIN: Warm and dry. HEAD: Normocephalic. EYES: No scleral icterus. No injection or drainage. NECK: Supple, trachea midline. No JVD or lymphadenopathy. CARDIOVASCULAR: Regular rate and rhythm without murmurs, gallops, or rubs. RESPIRATORY: Breath sounds equal bilaterally. No accessory muscle use. GASTROINTESTINAL: Abdomen soft, non-tender, nondistended. MUSCULOSKELETAL: No cyanosis, or edema. BACK: Nontender without obvious deformity. No CVA tenderness. A/P Problem List: (1) Cancer associated pain ICD Code: G89.3 - Neoplasm related pain (acute) (chronic) Status: Acute (2) Protein calorie malnutrition ICD Code: E46 - Unspecified protein-calorie malnutrition (3) Diarrhea ICD Code: R19.7 - Diarrhea, unspecified (4) Metastatic disease ICD Code: C79.9 - Secondary malignant neoplasm of unspecified site (5) C. difficile diarrhea ICD Code: A04.72 - Enterocolitis due to Clostridium difficile, not specified as recurrent Assessment and Plan 51-year-old female with Metastatic disease History of stage IV adenocarcinoma of unknown primary. Management per oncology Normocytic anemia Transfuse 1 unit packed red blood cell and monitor H&H Iron deficiency anemia Will transfuse Venofer Cancer associated pain Intractable pain in lower lumbar distribution in patient with a history of diffusely metastatic adenocarcinoma. --PET scan shows diffuse disease in lungs, abdomen and skeleton. --MRI lumbar spine pending --Continue ORAMORPH 60mg PO q 8+ Dilaudid 2mg IV q 2 hours deep venous thrombosis Continue with Coumadin and monitor INR C. difficile diarrhea Continue with by mouth Vanco ARF s/p placement of Lazcano catheter by Urology Monitor Bun/Cr Trey Elkins MD Apr 28, 2017 15:12
[2017-04-28] MEDS ORDERED: WARFARIN SOD 1 MG TAB PO ONE (16:00)
--- NOTE | 2017-04-28 16:54 | MB ---
cc: OZZIE CHERY MD DATE OF CONSULTATION 04/28/17 REASON FOR CONSULTATION Elevated BUN and creatinine and generalized edema. HISTORY OF PRESENT ILLNESS This is a 51-year-old female with a past medical history of cervical cancer diagnosed in 2006m recurrence with stage IV metastatic adenocarcinoma of unknown primary etiology, history of peripheral neuropathy, chronic back pain who came to the hospital with complaint of increased swelling of the legs and back pain. I was called to see the patient because of elevated BUN, creatinine and swelling of the legs. The patient has creatinine in the range of 1.2 to 1.5 most of the time in the past and she came this time with a creatinine of 1.2 and now it is 1.2 again. There are two readings of 0.9-1.0, but most of the time the creatinine has been elevated. The patient was seen by urology and underwent placement of a urinary catheter for the drainage and seen urology showed distension of the bladder. The patient is now draining the urine through the catheter and it is just slightly bloody. Her hemoglobin is on the lower side. The patient was seen by hematology oncology and they are following the patient. The patient recently moved to this area from [place] and the impression of oncology was adenocarcinoma is stage IV and with unknown primary and supportive care or hospice along with the option of chemotherapy was offered. The patient denies any chest pain. She has mild shortness of breath on exertion. PAST MEDICAL HISTORY 1. History of cervical cancer, 2. Chronic back pain. 3. Peripheral neuropathy. PAST SURGICAL HISTORY 1. Tonsillectomy, 2. Hernia repair 3. Total hysterectomy 4. Left nephrostomy tube on 04/16. REVIEW OF SYSTEMS The patient has generalized weakness, feeling tired, has shortness of breath on exertion. There is no chest pain. No cough. No history of fever. She has mild abdominal distension and also is complaining of swelling of the legs. Currently, she has urine coming out to the left nephrostomy and also through the Lazcano catheter. The one from the Lazcano catheter is slightly bloody. SOCIAL HISTORY There is no history of smoking or alcoholism FAMILY HISTORY Noncontributory. ALLERGIES LEVAQUIN METRONIDAZOLE PENICILLIN MEDICATIONS Currently on following medications 1. Normal saline 50 an hour 2. Julieta-Colace one b.i.d. 3. Warfarin 5 mg once a day and 1 mg one dose was given. 4. Vancomycin 125 mg p.o. q.i.d. 5. Morphine 30 mg q. 8-hour 6. Dilaudid as needed. 7. Benadryl as needed. PHYSICAL EXAMINATION GENERAL: The patient is awake, alert, sitting in the chair not in acute distress. VITAL SIGNS: Last blood pressure is 119/76, temperature is 98.3, pulse has been on the higher side 120-130s. HEENT: Pupils are mid constricted. Nonicteric sclerae, conjunctivae pale. NECK: Supple. JVD is not elevated. LUNGS: The patient has bilateral decreased air entry with basilar rales and scattered wheezing. HEART: S1, S2 regular rhythm. ABDOMEN: Distended, soft, lax. There is some edema in the lower part of the abdomen. EXTREMITIES: She has bilateral 2+ edema. LABORATORY DATA WBC count is 14.5, hemoglobin 7.2, platelet count 428. Sodium 136, potassium 4.3, chloride 103, bicarb 24.2, BUN 30, creatinine 1.2, calcium is 9.0, INR is 1.9. Urinalysis showing protein of 100 with largely leukocyte esterase and WBC clump. The stool C-difficile was positive. Urine culture showing gram-negative rods. ASSESSMENT/PLAN 1. C-difficile colitis. 2. Chronic kidney disease with some acute worsening. 3. Urinary tract infection. 4. Generalized edema and anasarca. 5. Metastatic adenocarcinoma 6. Severe anemia. 7. Deep vein thrombosis. The patient has multiple comorbid conditions and the edema is contributed by the deep vein thrombosis and, to some extent, by the renal failure also. She also has urinary tract infection. I will put her on ceftriaxone and the creatinine has been stable. She has a nephrostomy in the left side and urology is following. Avoid any nephrotoxins. Thank you for the consultation and we will follow the patient and further recommendation will be given from the nephrology standpoint as needed. MD OLIVE Mcgowan/ /3:38 PM /4:27 PM
[2017-04-28] MEDS: cefTRIAXone INJ 1,000 MG in SODIUM CHLORIDE 0.9% INJ 100 ML IV SCH (17:03)
[2017-04-28] MEDS: WARFARIN SOD 5 MG TAB PO SCH (17:04)
[2017-04-29] VITALS (13 sets, daily range): BP systolic 101–122; BP diastolic 64–74; PULSE 109–136; RESP 14–18; TEMP 89.9–100.1; O2SAT 95–98
[2017-04-29] MEDS: MORPHINE SULFATE 30 MG CONTROLLED RELEASE TAB PO SCH ×3 (00:37→16:46)
[2017-04-29] MEDS: VANCOMYCIN 500 MG VIAL (FOR ORAL USE ONLY) PO SCH ×4 (08:53→22:07)
[2017-04-29] MEDS: REMOVE OLD DURAGESIC (FENTANYL) PATCH T-DERMAL SCH (08:54)
[2017-04-29] MEDS: DOCUSATE SODIUM 50 MG/SENNA 8.6 MG TAB PO SCH ×2 (08:56→22:07)
[2017-04-29] MEDS: SODIUM CHLORIDE 0.9% FLUSH 10 ML FLUSH IV FLUSH SCH ×2 (08:56→22:07)
[2017-04-29 09:28] LABS: AUTOMATED NEUTROPHIL # 13.4 TH/MM3 (1.8-7.7); BASOPHIL % 0.2 % (0.0-2.0); EOSINOPHIL % 0.1 % (0.0-4.0); HEMATOCRIT 27.8 % (35.0-46.0); HEMOGLOBIN 9.3 GM/DL (11.6-15.3); LYMPH % 6.1 % (9.0-44.0); MEAN CELL VOLUME 84.8 FL (80.0-100.0); MEAN CORPUSCULAR HEMOGLOBIN 28.2 PG (27.0-34.0); MEAN CORPUSCULAR HGB CONC 33.3 % (32.0-36.0); MEAN PLATELET VOLUME 8.3 FL (7.0-11.0); MONO % 8.8 % (0.0-8.0); MONOCYTE # 1.4 TH/MM3 (0-0.9); NEUT % 84.8 % (16.0-70.0); PLATELET COUNT 484 TH/MM3 (150-450); RED BLOOD COUNT 3.28 MIL/MM3 (4.00-5.30); RED CELL DISTRIBUTION WIDTH 17.5 % (11.6-17.2); WHITE BLOOD COUNT 15.8 TH/MM3 (4.0-11.0)
[2017-04-29 09:46] LABS: BICARBONATE 22.9 MEQ/L (21.0-32.0); CALCIUM 9.4 MG/DL (8.5-10.1); CREATININE 1.58 MG/DL (0.50-1.00)
[2017-04-29] MEDS: HYDROmorphone HCL PF 2 MG/ML VIAL IV PUSH PRN ×4 (10:04→22:15)
[2017-04-29 10:27] LABS: INTERNATIONAL NORMALIZED RATIO 2.6 RATIO; PROTHROMBIN TIME - PATIENT 26.5 SEC (9.8-11.6)
--- NOTE | 2017-04-29 11:16 | PD.ONC.PN ---
Subjective Subjective Remarks Tmax 99.7 overnight. Patient resting in bed in nad. Pain is controlled. at bedside asking what the plan is. Objective Data Date Time Temp Pulse Resp B/P (MAP) Pulse Ox O2 Delivery O2 Flow Rate FiO2 04/29/17 07:56 99.4 131 18 117/72 (87) 97 04/29/17 07:02 136 04/29/17 06:00 128 04/29/17 05:00 124 04/29/17 04:00 117 04/29/17 04:00 99.7 124 14 112/67 (82) 96 04/29/17 03:00 116 04/29/17 02:00 122 04/29/17 01:00 112 04/29/17 00:00 109 04/29/17 00:00 98.9 120 14 122/67 (85) 98 04/28/17 23:00 108 04/28/17 22:00 112 04/28/17 21:00 120 04/28/17 20:00 97.6 107 14 107/67 (80) 97 04/28/17 20:00 115 04/28/17 19:45 97.6 122 14 107/67 94 04/28/17 18:22 98.9 04/28/17 17:21 99.1 126 14 115/74 96 04/28/17 17:13 99.1 124 16 107/55 98 04/28/17 11:57 16 04/29/17 04/29/17 04/29/17 07:00 15:00 23:00 Output Total 850 ml Balance -850 ml Result Diagram: 04/29/17 0835 04/29/17 0835 Laboratory Results Laboratory Tests Test 04/29/17 08:35 04/29/17 10:00 White Blood Count 15.8 TH/MM3 Red Blood Count 3.28 MIL/MM3 Hemoglobin 9.3 GM/DL Hematocrit 27.8 % Mean Corpuscular Volume 84.8 FL Mean Corpuscular Hemoglobin 28.2 PG Mean Corpuscular Hemoglobin Concent 33.3 % Red Cell Distribution Width 17.5 % Platelet Count 484 TH/MM3 Mean Platelet Volume 8.3 FL Neutrophils (%) (Auto) 84.8 % Lymphocytes (%) (Auto) 6.1 % Monocytes (%) (Auto) 8.8 % Eosinophils (%) (Auto) 0.1 % Basophils (%) (Auto) 0.2 % Neutrophils # (Auto) 13.4 TH/MM3 Lymphocytes # (Auto) 1.0 TH/MM3 Monocytes # (Auto) 1.4 TH/MM3 Eosinophils # (Auto) 0.0 TH/MM3 Basophils # (Auto) 0.0 TH/MM3 CBC Comment DIFF FINAL Differential Comment Blood Urea Nitrogen 40 MG/DL Creatinine 1.58 MG/DL Random Glucose 136 MG/DL Calcium Level 9.4 MG/DL Sodium Level 133 MEQ/L Potassium Level 4.5 MEQ/L Chloride Level 98 MEQ/L Carbon Dioxide Level 22.9 MEQ/L Anion Gap 12 MEQ/L Estimat Glomerular Filtration Rate 42 ML/MIN Prothrombin Time 26.5 SEC Prothromb Time International Ratio 2.6 RATIO Culture Results Microbiology Date/Time Source Procedure Growth Status 04/27/17 03:00 Urine Clean Catch Urine Culture - Preliminary Gram Negative Kobe Resulted Administered Medications Medications (Trade) Dose Ordered Sig/Erendira Route PRN Reason Start Time Stop Time Status Last Admin Dose Admin Sodium Chloride (NS Flush) 2 ml UNSCH PRN IV FLUSH FLUSH AFTER USING IV ACCESS 04/25/17 18:15 04/26/17 07:40 Sodium Chloride (NS Flush) 2 ml BID IV FLUSH 04/25/17 21:00 04/29/17 08:56 Senna/Docusate Sodium (Julieta-Colace) 1 tab BID PO 04/26/17 09:00 04/28/17 20:28 Warfarin Sodium (Coumadin) 5 mg DAILY@1600 PO 04/26/17 16:00 04/28/17 17:04 Miscellaneous Information 1 Q3D T-DERMAL 04/29/17 09:00 04/29/17 08:54 Vancomycin HCl (VANCOMYCIN for oral use only) 125 mg QID PO 04/26/17 09:00 04/29/17 08:53 Hydromorphone HCl (Dilaudid Pf Inj) 2 mg Q2HR PRN IV PUSH pain >5 04/27/17 15:00 04/29/17 10:04 Acetaminophen (Tylenol) 650 mg Q4H PRN PO SEE LABEL COMMENTS 04/28/17 11:30 04/28/17 16:56 Diphenhydramine HCl (Benadryl) 25 mg Q4H PRN PO SEE LABEL COMMENTS 04/28/17 11:30 12/23/17 16:56 Morphine Sulfate (Oramorph Sr) 30 mg Q8H PO 04/28/17 18:00 04/29/17 08:53 Ceftriaxone Sodium 1000 mg/ Sodium Chloride 100 ml @ 200 mls/hr Q24H IV 04/28/17 17:00 04/28/17 17:03 Objective Remarks GENERAL: chronically ill female sitting up in bed in [facility]. SKIN: Warm and dry. HEAD: Normocephalic. EYES: No injection or drainage. NECK: Supple, trachea midline. CARDIOVASCULAR: tachycardic rate, regular rhythm RESPIRATORY: Breath sounds equal bilaterally. No accessory muscle use. GASTROINTESTINAL: Abdomen soft, non-tender, nondistended. : suprapubic catheter with small amount of red urine draining. left nephrostomy tube with yellow urine EXTREMITIES: No cyanosis NEUROLOGICAL: awake and alert, normal speech. Assessment/Plan Problem List: (1) Metastatic disease ICD Codes: C79.9 - Secondary malignant neoplasm of unspecified site Plan: --history of stage IV adenocarcinoma of unknown primary. --thought to be possibly primary neoplasm of upper digestive origin, such has cholangio, pancreatic or gastric. (2) Normocytic anemia ICD Codes: D64.9 - Anemia, unspecified Plan: --obtain anemia studies. --has been iron deficient in the past. --may need IV iron (3) Cancer associated pain ICD Codes: G89.3 - Neoplasm related pain (acute) (chronic) Status: Acute Plan: --intractable pain in lower lumbar distribution in patient with a history of diffusely metastatic adenocarcinoma. --PET scan shows diffuse disease in lungs, abdomen and skeleton. --MRI lumbar spine pending --currently on oRAMORPH 60mg PO q 8+ Dilaudid 2mg IV q 2 hours (4) DVT (deep venous thrombosis) ICD Codes: I82.409 - Acute embolism and thrombosis of unspecified deep veins of unspecified lower extremity Status: Chronic Plan: --on coumadin (5) C. difficile diarrhea ICD Codes: A04.72 - Enterocolitis due to Clostridium difficile, not specified as recurrent Plan: --on PO Vanco Assessment 51y/o female with stage IV adenocarcinoma, with liver and lung metastasis with unknown primary admitted with intractable pain mostly in lower spine. --was residing in [facility] and according to the patient she received radiation and chemotherapy. Subsequently she moved to [facility]. --recently had DVT in her left lower extremity. was in [place] at that time. has been on anticoagulation. PET scan-->diffuse disease involving her lung, abdomen and bones. history of cervical cancer in 2006 treated with chemotherapy and radiation treatments. Bilateral lower extremity DVT Severe peripheral neuropathy. Plan 1. I had an extensive discussion with the patient and at the bedside today in which I reviewed the scans and extent of tumor involvement. Discussed pathology reports from both liver biopsies. Patient and seemed surprised at results and indicated they were not aware patient had an incurable illness. we reviewed that this is a stage IV cancer with unknown primary. We discussed that we are waiting on additional testing to help further direct treatment. We discussed that any treatments would be palliative. We discussed what palliative meant. Emotional support provided. Active listening engaged. 2. continue pain management. Seems to be doing well with Oramorph 30mg PO TID. Encouraged patient to use breakthrough pain medication, dilaudid for pain in between Oramorph. Reviewed what breakthrough pain means and reviewed strategy of using long acting and short acting pain medications. Attending Statement The exam, history, and the medical decision-making described in the above note were completed with the assistance of the mid-level provider. I reviewed and agree with the findings presented. I attest that I had a [id number] encounter with the patient on the same day, and personally performed and documented my assessment and findings in the medical record. Discussed situation with patient reviewing previous ct scans, current chest film and the findings by Dr. Fang. She was not aware that she had incurable disease although a previous note by Dr. Peña refers to this discussion. She and her will require additional discussions with Dr. Peña as she has arrived at a point where further chemotherapy/radiation may not necessarily work and they will need a realistic framework to deal with the present. Dr. Peña nevaeh be back tomorrow. pain fairly well controlled and no change in medicines today Problem Qualifiers (1) DVT (deep venous thrombosis): Debra Newell Apr 29, 2017 11:16 Yosi Glass MD Apr 29, 2017 11:29
--- NOTE | 2017-04-29 11:50 | HHI.NPPN ---
Subjective General Problems: Anemia, Edema Renal Failure: Chronic, Acute, Stage III History of Present Illness 51-year-old female with a past medical history of cervical cancer diagnosed in 2006m recurrence with stage IV metastatic adenocarcinoma of unknown primary etiology, history of peripheral neuropathy, chronic back pain who came to the hospital with complaint of increased swelling of the legs and back pain. I was called to see the patient because of elevated BUN, creatinine and swelling of the legs. The patient has creatinine in the range of 1.2 to 1.5 most of the time in the past. Additional Remarks Patient is alert, mild SOB, no abd. pain, has low grade fever. Review of Systems General Constitutional: Fatigue Cardiovascular Cardiac: Edema, SAUCEDA Gastrointestinal Gastrointestinal: Abdominal Pain Objective Data Data Vital Signs Date Time Temp Pulse Resp B/P (MAP) Pulse Ox O2 Delivery O2 Flow Rate FiO2 04/29/17 11:36 100.1 129 18 111/72 (85) 97 04/29/17 07:56 99.4 131 18 117/72 (87) 97 04/29/17 07:02 136 04/29/17 06:00 128 04/29/17 05:00 124 04/29/17 04:00 117 04/29/17 04:00 99.7 124 14 112/67 (82) 96 04/29/17 03:00 116 04/29/17 02:00 122 04/29/17 01:00 112 04/29/17 00:00 109 04/29/17 00:00 98.9 120 14 122/67 (85) 98 04/28/17 23:00 108 04/28/17 22:00 112 04/28/17 21:00 120 04/28/17 20:00 97.6 107 14 107/67 (80) 97 04/28/17 20:00 115 04/28/17 19:45 97.6 122 14 107/67 94 04/28/17 18:22 98.9 04/28/17 17:21 99.1 126 14 115/74 96 04/28/17 17:13 99.1 124 16 107/55 98 04/28/17 11:57 16 -: 04/29/17 0835 04/29/17 0835 Physical Exam General Appearance: No Acute Distress, Comfortable Eyes Eye Exam: Pupils Equal Neck Neck Exam: Neck Supple Pulmonary Resp Exam: Breath Sounds Equal, No Distress, Rhonchi, Decreased Bases Cardiology CV Exam: Regular, Normal Sinus Rhythm Gastrointestinal/Abdomen GI Exam: Soft, Non-Tender, Bowel Sounds Present, Distended Extremeties Extremities Exam: Moderate Edema, Pitting Edema, Dependent Edema Neurologic Neuro Exam: Alert, Awake, Oriented Psychiatric Psych Exam: Appropriate Responses Assessment/Plan Assessment Summary: YADI/Acute Renal Failure, Fluid/Volume Overload, CKD Stage III Problem List: (1) Anemia ICD Codes: D64.9 - Anemia, unspecified Status: Chronic (2) UTI (urinary tract infection) ICD Codes: N39.0 - Urinary tract infection, site not specified (3) Low back pain ICD Codes: M54.5 - Low back pain Status: Chronic (4) C. difficile diarrhea ICD Codes: A04.72 - Enterocolitis due to Clostridium difficile, not specified as recurrent (5) Metastatic disease ICD Codes: C79.9 - Secondary malignant neoplasm of unspecified site (6) Urinary retention ICD Codes: R33.9 - Retention of urine, unspecified (7) CKD (chronic kidney disease), stage III ICD Codes: N18.3 - Chronic kidney disease, stage 3 (moderate) Plan Patient has Chronic kidney disease and develop YADI. Has Left Nephrostomy. Creatinine is now 1.5. Urine out put is adequate. Has low grade fever. On Vanco. PO and Ceftriaxone. Continue antibiotics. Follow the urine out ptu and BMP. Christo Gregorio MD Apr 29, 2017 11:50
--- NOTE | 2017-04-29 12:27 | HHI.PR ---
Subjective Remarks Follow-up metastasis disease and pain/anemia of chronic disease/DHEERAJ 04/28/17-patient seen and examined, complains of mild low back pain. Consistently tachycardia. Positive for hematuria. Low-grade fever yesterday at 7 PM with Tmax 100 however currently afebrile 04/29/17-patient seen and examined, patient still with low back pain. by the bedside and states he was not aware of patient's current terminal diagnosis. H&H improved posttransfusion Objective Vitals Vital Signs Date Time Temp Pulse Resp B/P (MAP) Pulse Ox O2 Delivery O2 Flow Rate FiO2 04/29/17 11:36 100.1 129 18 111/72 (85) 97 04/29/17 07:56 99.4 131 18 117/72 (87) 97 04/29/17 07:02 136 04/29/17 06:00 128 04/29/17 05:00 124 04/29/17 04:00 117 04/29/17 04:00 99.7 124 14 112/67 (82) 96 04/29/17 03:00 116 04/29/17 02:00 122 04/29/17 01:00 112 04/29/17 00:00 109 04/29/17 00:00 98.9 120 14 122/67 (85) 98 04/28/17 23:00 108 04/28/17 22:00 112 04/28/17 21:00 120 04/28/17 20:00 97.6 107 14 107/67 (80) 97 04/28/17 20:00 115 04/28/17 19:45 97.6 122 14 107/67 94 04/28/17 18:22 98.9 04/28/17 17:21 99.1 126 14 115/74 96 04/28/17 17:13 99.1 124 16 107/55 98 I/O 04/28/17 04/28/17 04/28/17 04/29/17 04/29/17 04/29/17 07:00 15:00 23:00 07:00 15:00 23:00 Intake Total 1350 ml Output Total 300 ml 450 ml 850 ml Balance -300 ml 900 ml -850 ml Intake Oral 950 ml Packed Cells 400 ml Output Urine Total 300 ml 500 ml Drainage Total 450 ml 350 ml # Bowel Movements 1 Result Diagram: 04/29/1735 04/29/1735 Objective Remarks GENERAL: NAD SKIN: Warm and dry. HEAD: Normocephalic. EYES: No scleral icterus. No injection or drainage. NECK: Supple, trachea midline. No JVD or lymphadenopathy. CARDIOVASCULAR: Regular rate and rhythm without murmurs, gallops, or rubs. RESPIRATORY: Breath sounds equal bilaterally. No accessory muscle use. GASTROINTESTINAL: Abdomen soft, non-tender, nondistended. MUSCULOSKELETAL: No cyanosis, or edema. BACK: Nontender without obvious deformity. No CVA tenderness. A/P Problem List: (1) Cancer associated pain ICD Code: G89.3 - Neoplasm related pain (acute) (chronic) Status: Acute (2) Protein calorie malnutrition ICD Code: E46 - Unspecified protein-calorie malnutrition (3) Diarrhea ICD Code: R19.7 - Diarrhea, unspecified (4) Metastatic disease ICD Code: C79.9 - Secondary malignant neoplasm of unspecified site (5) C. difficile diarrhea ICD Code: A04.72 - Enterocolitis due to Clostridium difficile, not specified as recurrent Assessment and Plan 51-year-old female with Metastatic disease History of stage IV adenocarcinoma of unknown primary. Management per oncology Normocytic anemia Transfused 1 unit packed red blood cell and monitor H&H Iron deficiency anemia Will transfuse Venofer Cancer associated pain Intractable pain in lower lumbar distribution in patient with a history of diffusely metastatic adenocarcinoma. --PET scan shows diffuse disease in lungs, abdomen and skeleton. --MRI lumbar spine pending --Continue ORAMORPH 60mg PO q 8+ Dilaudid 2mg IV q 2 hours deep venous thrombosis Continue with Coumadin and monitor INR C. difficile diarrhea Continue with by mouth Vanco ARF s/p placement of Lazcano catheter by Urology Monitor Bun/Cr Trey Elkins MD Apr 29, 2017 12:27
--- NOTE | 2017-04-29 13:31 | HHI.PR ---
Subjective Patient symptoms today has less pressure with the SP tube in place Objective Vital Signs Vital Signs Date Time Temp Pulse Resp B/P (MAP) Pulse Ox O2 Delivery O2 Flow Rate FiO2 04/29/17 11:36 100.1 129 18 111/72 (85) 97 04/29/17 07:56 99.4 131 18 117/72 (87) 97 04/29/17 07:02 136 04/29/17 06:00 128 04/29/17 05:00 124 04/29/17 04:00 117 04/29/17 04:00 99.7 124 14 112/67 (82) 96 04/29/17 03:00 116 04/29/17 02:00 122 04/29/17 01:00 112 04/29/17 00:00 109 04/29/17 00:00 98.9 120 14 122/67 (85) 98 04/28/17 23:00 108 04/28/17 22:00 112 04/28/17 21:00 120 04/28/17 20:00 97.6 107 14 107/67 (80) 97 04/28/17 20:00 115 04/28/17 19:45 97.6 122 14 107/67 94 04/28/17 18:22 98.9 04/28/17 17:21 99.1 126 14 115/74 96 04/28/17 17:13 99.1 124 16 107/55 98 Intake & Output 04/29/17 04/29/17 07:00 19:00 Intake Total 400 ml Output Total 850 ml Balance -450 ml Packed Cells 400 ml Output Urine Total 500 ml Drainage Total 350 ml Result Diagram: 04/29/17 0835 04/29/17 0835 Objective Remarks SP tube is in good position, and is draining francie urine, this should continue to clear up Medications and IVs Current Medications Medications (Trade) Dose Ordered Sig/Erendira Route Start Time Stop Time Status Last Admin (NS Flush) 2 ml UNSCH PRN IV FLUSH 04/25/17 18:15 04/26/17 07:40 (NS Flush) 2 ml BID IV FLUSH 04/25/17 21:00 04/29/17 08:56 (Narcan Inj) 0.4 mg UNSCH PRN IV PUSH 04/25/17 18:15 (Lactulose Liq) 30 ml Q6H PRN PO 04/26/17 05:15 (Julieta-Colace) 1 tab BID PO 04/26/17 09:00 04/28/17 20:28 (Coumadin) 5 mg DAILY@1600 PO 04/26/17 16:00 04/28/17 17:04 Miscellaneous Information 1 Q3D T-DERMAL 04/29/17 09:00 04/29/17 08:54 Pharmacy Profile Note 0 ml @ 0 mls/hr UNSCH OTHER 04/26/17 05:45 (VANCOMYCIN for oral use only) 125 mg QID PO 04/26/17 09:00 04/29/17 13:01 (Dilaudid Pf Inj) 2 mg Q2HR PRN IV PUSH 04/27/17 15:00 04/29/17 13:01 (Tylenol) 650 mg Q4H PRN PO 04/28/17 11:30 04/28/17 16:56 (Benadryl) 25 mg Q4H PRN PO 04/28/17 11:30 04/28/17 16:56 (Oramorph Sr) 30 mg Q8H PO 04/28/17 18:00 04/29/17 08:53 Ceftriaxone Sodium 1000 mg/ Sodium Chloride 100 ml @ 200 mls/hr Q24H IV 04/28/17 17:00 04/28/17 17:03 Assessment and Plan Assessment and Plan 1) Advanced adenocarcinoma of an uncertain primary 2) Hx of cervical Ca tx'd in the past (2005) 3) 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 The SP tube should be managed like any other with monthly changes. A vaginal attempt at catheterization should be avoided (it was impossible in my hands secondary to assumed tumor) Will Fang MD Apr 29, 2017 13:31
[2017-04-29] MEDS: cefTRIAXone INJ 1,000 MG in SODIUM CHLORIDE 0.9% INJ 100 ML IV SCH (16:46)
[2017-04-29] MEDS: WARFARIN SOD 5 MG TAB PO SCH (16:47)
[2017-04-30] VITALS (10 sets, daily range): BP systolic 98–117; BP diastolic 60–76; PULSE 109–136; RESP 16–18; TEMP 98.3–99.7; O2SAT 18–99
[2017-04-30] MEDS: MORPHINE SULFATE 30 MG CONTROLLED RELEASE TAB PO SCH ×3 (02:50→17:57)
[2017-04-30] MEDS: HYDROmorphone HCL PF 2 MG/ML VIAL IV PUSH PRN ×4 (05:05→21:02)
[2017-04-30 05:15] LABS: BASOPHIL % 0.2 % (0.0-2.0); EOSINOPHIL # 0.1 TH/MM3 (0-0.4); EOSINOPHIL % 0.5 % (0.0-4.0); HEMATOCRIT 28.4 % (35.0-46.0); HEMOGLOBIN 9.1 GM/DL (11.6-15.3); LYMPH % 8.4 % (9.0-44.0); LYMPHOCYTE # 1.2 TH/MM3 (1.0-4.8); MEAN CELL VOLUME 85.2 FL (80.0-100.0); MEAN CORPUSCULAR HEMOGLOBIN 27.4 PG (27.0-34.0); MEAN CORPUSCULAR HGB CONC 32.1 % (32.0-36.0); MONO % 9.3 % (0.0-8.0); MONOCYTE # 1.4 TH/MM3 (0-0.9); NEUT % 81.6 % (16.0-70.0); PLATELET COUNT 485 TH/MM3 (150-450); RED BLOOD COUNT 3.33 MIL/MM3 (4.00-5.30); RED CELL DISTRIBUTION WIDTH 17.9 % (11.6-17.2); WHITE BLOOD COUNT 14.7 TH/MM3 (4.0-11.0)
[2017-04-30 05:21] LABS: INTERNATIONAL NORMALIZED RATIO 1.9 RATIO; PROTHROMBIN TIME - PATIENT 19.3 SEC (9.8-11.6)
[2017-04-30 05:43] LABS: BICARBONATE 21.8 MEQ/L (21.0-32.0); CALCIUM 9.3 MG/DL (8.5-10.1); CREATININE 1.58 MG/DL (0.50-1.00)
[2017-04-30] MEDS: DOCUSATE SODIUM 50 MG/SENNA 8.6 MG TAB PO SCH ×2 (08:47→20:54)
[2017-04-30] MEDS: VANCOMYCIN 500 MG VIAL (FOR ORAL USE ONLY) PO SCH ×4 (08:47→20:54)
[2017-04-30] MEDS: SODIUM CHLORIDE 0.9% FLUSH 10 ML FLUSH IV FLUSH SCH ×2 (08:48→21:02)
--- NOTE | 2017-04-30 11:06 | HHI.NPPN ---
Subjective General Problems: Anemia, Edema Renal Failure: Chronic, Acute, Stage III History of Present Illness 51-year-old female with a past medical history of cervical cancer diagnosed in 2006m recurrence with stage IV metastatic adenocarcinoma of unknown primary etiology, history of peripheral neuropathy, chronic back pain who came to the hospital with complaint of increased swelling of the legs and back pain. I was called to see the patient because of elevated BUN, creatinine and swelling of the legs. The patient has creatinine in the range of 1.2 to 1.5 most of the time in the past. Additional Remarks Patient is alert, mild SOB, no abd. pain, eating better, not in distress. Review of Systems General Constitutional: Fatigue Cardiovascular Cardiac: Edema, SAUCEDA Gastrointestinal Gastrointestinal: Abdominal Pain Objective Data Data Vital Signs Date Time Temp Pulse Resp B/P (MAP) Pulse Ox O2 Delivery O2 Flow Rate FiO2 04/30/17 08:46 98.9 117 18 117/65 (82) 18 04/30/17 06:08 16 04/30/17 04:22 16 04/30/17 02:53 98.5 128 16 115/70 (85) 96 04/29/17 22:02 99.2 121 18 117/74 (88) 96 04/29/17 22:00 123 04/29/17 15:28 89.9 126 18 101/64 (76) 95 04/29/17 11:36 100.1 129 18 111/72 (85) 97 -: 04/30/17 0448 04/30/17 0448 Physical Exam General Appearance: No Acute Distress, Comfortable Eyes Eye Exam: Pupils Equal Neck Neck Exam: Neck Supple Pulmonary Resp Exam: Breath Sounds Equal, No Distress, Rhonchi, Decreased Bases Cardiology CV Exam: Regular, Normal Sinus Rhythm Gastrointestinal/Abdomen GI Exam: Soft, Non-Tender, Bowel Sounds Present, Distended Extremeties Extremities Exam: Moderate Edema, Pitting Edema, Dependent Edema Neurologic Neuro Exam: Alert, Awake, Oriented Psychiatric Psych Exam: Appropriate Responses Assessment/Plan Assessment Summary: YADI/Acute Renal Failure, Fluid/Volume Overload, CKD Stage III Problem List: (1) Anemia ICD Codes: D64.9 - Anemia, unspecified Status: Chronic (2) UTI (urinary tract infection) ICD Codes: N39.0 - Urinary tract infection, site not specified (3) Low back pain ICD Codes: M54.5 - Low back pain Status: Chronic (4) C. difficile diarrhea ICD Codes: A04.72 - Enterocolitis due to Clostridium difficile, not specified as recurrent (5) Metastatic disease ICD Codes: C79.9 - Secondary malignant neoplasm of unspecified site (6) Urinary retention ICD Codes: R33.9 - Retention of urine, unspecified (7) CKD (chronic kidney disease), stage III ICD Codes: N18.3 - Chronic kidney disease, stage 3 (moderate) Plan Patient has Chronic kidney disease and develop YADI. Has Left Nephrostomy. Creatinine is now 1.5. Now afebrile. On Vanco. PO and Ceftriaxone. Continue antibiotics. Follow the urine out put and BMP. Has low urine out put and increasing edema. Add Lasix 20 mg BID. Christo Gregorio MD Apr 30, 2017 11:06
--- NOTE | 2017-04-30 11:32 | HHI.PR ---
Subjective Remarks Follow-up metastasis disease and pain/anemia of chronic disease/DHEERAJ 04/28/17-patient seen and examined, complains of mild low back pain. Consistently tachycardia. Positive for hematuria. Low-grade fever yesterday at 7 PM with Tmax 100 however currently afebrile 04/29/17-patient seen and examined, patient still with low back pain. by the bedside and states he was not aware of patient's current terminal diagnosis. H&H improved posttransfusion 04/30/17-patient seen and examined, still spiking fever. States she has increased appetite today. by the bedside Objective Vitals Vital Signs Date Time Temp Pulse Resp B/P (MAP) Pulse Ox O2 Delivery O2 Flow Rate FiO2 04/30/17 08:46 98.9 117 18 117/65 (82) 18 04/30/17 07:00 109 04/30/17 06:08 16 04/30/17 04:22 16 04/30/17 02:53 98.5 128 16 115/70 (85) 96 04/29/17 22:02 99.2 121 18 117/74 (88) 96 04/29/17 22:00 123 04/29/17 15:28 89.9 126 18 101/64 (76) 95 04/29/17 11:36 100.1 129 18 111/72 (85) 97 I/O 04/29/17 04/29/17 04/29/17 04/30/17 04/30/17 04/30/17 07:00 15:00 23:00 07:00 15:00 23:00 Intake Total 960 ml 240 ml Output Total 850 ml 200 ml 325 ml Balance -850 ml 760 ml -85 ml Intake Oral 960 ml 240 ml Output Urine Total 500 ml 100 ml 150 ml Drainage Total 350 ml 100 ml 175 ml # Bowel Movements 1 Result Diagram: 04/30/17 0448 04/30/17 0448 Imaging Last Impressions Sacrum/Coccyx MRI 04/27/17 0000 Signed Impressions: Service Date/Time: Thursday, April 27, 2017 22:00 - CONCLUSION: Marrow signal changes within the bony elements of the sacrum and ramo potentially related to previous radiation. Soft tissue elements significantly obscured by streak associated with embolization coils and other foreign components in the pelvis. David Miranda MD Lumbar Spine MRI 04/27/17 0000 Signed Impressions: Service Date/Time: Thursday, April 27, 2017 22:00 - CONCLUSION: No acute findings in the lumbar spine. David Miranda MD Chest X-Ray 04/25/17 1310 Signed Impressions: Service Date/Time: Tuesday, April 25, 2017 13:33 - CONCLUSION: 1. Multiple bilateral pulmonary nodules concerning for metastatic disease. 2. Interval removal of the left subclavian Sedrvh-z-[id number] catheter and placement of a right subclavian Lfdqim-u-Wmil catheter. No pneumothorax. 3. Heart size is normal. No superimposed acute infiltrate. Kwabena Palmer MD Lower Extremity Ultrasound 04/25/17 0000 Signed Impressions: Service Date/Time: Tuesday, April 25, 2017 13:34 - CONCLUSION: 1. Enlarged bilateral inguinal lymph nodes. The largest on the right measures 5 cm in diameter. Nodes are suspicious. 2. No DVT. Kwabena Palmer MD Objective Remarks GENERAL: NAD SKIN: Warm and dry. HEAD: Normocephalic. EYES: No scleral icterus. No injection or drainage. NECK: Supple, trachea midline. No JVD or lymphadenopathy. CARDIOVASCULAR: Regular rate and rhythm without murmurs, gallops, or rubs. RESPIRATORY: Breath sounds equal bilaterally. No accessory muscle use. GASTROINTESTINAL: Abdomen soft, non-tender, nondistended. MUSCULOSKELETAL: No cyanosis, or edema. BACK: Nontender without obvious deformity. No CVA tenderness. A/P Problem List: (1) Cancer associated pain ICD Code: G89.3 - Neoplasm related pain (acute) (chronic) Status: Acute (2) Protein calorie malnutrition ICD Code: E46 - Unspecified protein-calorie malnutrition (3) Diarrhea ICD Code: R19.7 - Diarrhea, unspecified (4) Metastatic disease ICD Code: C79.9 - Secondary malignant neoplasm of unspecified site (5) C. difficile diarrhea ICD Code: A04.72 - Enterocolitis due to Clostridium difficile, not specified as recurrent Assessment and Plan 51-year-old female with Metastatic disease History of stage IV adenocarcinoma of unknown primary. Management per oncology Will Need to consider hospice Normocytic anemia Transfused 1 unit packed red blood cell and monitor H&H Iron deficiency anemia Will transfuse Venofer Cancer associated pain Intractable pain in lower lumbar distribution in patient with a history of diffusely metastatic adenocarcinoma. --PET scan shows diffuse disease in lungs, abdomen and skeleton. --MRI lumbar spine pending --Continue ORAMORPH 60mg PO q 8+ Dilaudid 2mg IV q 2 hours deep venous thrombosis Continue with Coumadin and monitor INR C. difficile diarrhea Continue with by mouth Vanco ARF s/p placement of Lazcano catheter by Urology Monitor Bun/Cr Trey Elkins MD Apr 30, 2017 11:32
--- NOTE | 2017-04-30 15:00 | PD.ONC.PN ---
Subjective Subjective Remarks ongoing supportive care pain better controlled poor appetite discussed prognosis of her disease which is poor, she wants aggresive chemotehrapy also discussed palliative care option--not interested Objective Data Date Time Temp Pulse Resp B/P (MAP) Pulse Ox O2 Delivery O2 Flow Rate FiO2 04/30/17 12:25 99.0 114 18 114/72 (86) 96 04/30/17 08:46 98.9 117 18 117/65 (82) 18 04/30/17 07:00 109 04/30/17 06:08 16 04/30/17 04:22 16 04/30/17 02:53 98.5 128 16 115/70 (85) 96 04/29/17 22:02 99.2 121 18 117/74 (88) 96 04/29/17 22:00 123 04/29/17 15:28 89.9 126 18 101/64 (76) 95 04/30/17 04/30/17 04/30/17 07:00 15:00 23:00 Intake Total 240 ml Output Total 325 ml Balance -85 ml Result Diagram: 04/30/17 0448 04/30/17 0448 Laboratory Results Laboratory Tests Test 04/30/17 04:48 White Blood Count 14.7 TH/MM3 Red Blood Count 3.33 MIL/MM3 Hemoglobin 9.1 GM/DL Hematocrit 28.4 % Mean Corpuscular Volume 85.2 FL Mean Corpuscular Hemoglobin 27.4 PG Mean Corpuscular Hemoglobin Concent 32.1 % Red Cell Distribution Width 17.9 % Platelet Count 485 TH/MM3 Mean Platelet Volume 8.0 FL Neutrophils (%) (Auto) 81.6 % Lymphocytes (%) (Auto) 8.4 % Monocytes (%) (Auto) 9.3 % Eosinophils (%) (Auto) 0.5 % Basophils (%) (Auto) 0.2 % Neutrophils # (Auto) 12.0 TH/MM3 Lymphocytes # (Auto) 1.2 TH/MM3 Monocytes # (Auto) 1.4 TH/MM3 Eosinophils # (Auto) 0.1 TH/MM3 Basophils # (Auto) 0.0 TH/MM3 CBC Comment DIFF FINAL Differential Comment Prothrombin Time 19.3 SEC Prothromb Time International Ratio 1.9 RATIO Blood Urea Nitrogen 43 MG/DL Creatinine 1.58 MG/DL Random Glucose 124 MG/DL Calcium Level 9.3 MG/DL Sodium Level 128 MEQ/L Potassium Level 4.9 MEQ/L Chloride Level 94 MEQ/L Carbon Dioxide Level 21.8 MEQ/L Anion Gap 12 MEQ/L Estimat Glomerular Filtration Rate 42 ML/MIN Administered Medications Medications (Trade) Dose Ordered Sig/Erendira Route PRN Reason Start Time Stop Time Status Last Admin Dose Admin Sodium Chloride (NS Flush) 2 ml UNSCH PRN IV FLUSH FLUSH AFTER USING IV ACCESS 04/25/17 18:15 04/26/17 07:40 Sodium Chloride (NS Flush) 2 ml BID IV FLUSH 04/25/17 21:00 04/30/17 08:48 Senna/Docusate Sodium (Julieta-Colace) 1 tab BID PO 04/26/17 09:00 04/30/17 08:47 Warfarin Sodium (Coumadin) 5 mg DAILY@1600 PO 04/26/17 16:00 04/29/17 16:47 Miscellaneous Information 1 Q3D T-DERMAL 04/29/17 09:00 04/29/17 08:54 Vancomycin HCl (VANCOMYCIN for oral use only) 125 mg QID PO 04/26/17 09:00 04/30/17 12:28 Hydromorphone HCl (Dilaudid Pf Inj) 2 mg Q2HR PRN IV PUSH pain >5 04/27/17 15:00 04/30/17 12:35 Acetaminophen (Tylenol) 650 mg Q4H PRN PO SEE LABEL COMMENTS 04/28/17 11:30 04/28/17 16:56 Diphenhydramine HCl (Benadryl) 25 mg Q4H PRN PO SEE LABEL COMMENTS 04/28/17 11:30 04/28/17 16:56 Morphine Sulfate (Oramorph Sr) 30 mg Q8H PO 04/28/17 18:00 04/30/17 10:40 Ceftriaxone Sodium 1000 mg/ Sodium Chloride 100 ml @ 200 mls/hr Q24H IV 04/28/17 17:00 04/29/17 16:46 Objective Remarks GENERAL: weak, chronically ill appearing SKIN: Warm and dry. HEAD: Normocephalic. EYES: No scleral icterus. No injection or drainage. NECK: Supple, trachea midline. No JVD or lymphadenopathy. LYMPHATIC: No adenopathy. CARDIOVASCULAR: Regular rate and rhythm without murmurs. RESPIRATORY: Breath sounds equal bilaterally. No accessory muscle use. GASTROINTESTINAL: abdominal pain//tender diffused EXTREMITIES: No cyanosis, or edema. l. Assessment/Plan Problem List: (1) Metastatic disease ICD Codes: C79.9 - Secondary malignant neoplasm of unspecified site Plan: --history of stage IV adenocarcinoma of unknown primary. --thought to be possibly primary neoplasm of upper digestive origin, such has cholangio, pancreatic or gastric. (2) Normocytic anemia ICD Codes: D64.9 - Anemia, unspecified Plan: --obtain anemia studies. --has been iron deficient in the past. --may need IV iron (3) Cancer associated pain ICD Codes: G89.3 - Neoplasm related pain (acute) (chronic) Status: Acute Plan: --intractable pain in lower lumbar distribution in patient with a history of diffusely metastatic adenocarcinoma. --PET scan shows diffuse disease in lungs, abdomen and skeleton. --MRI lumbar spine pending --currently on oRAMORPH 60mg PO q 8+ Dilaudid 2mg IV q 2 hours (4) DVT (deep venous thrombosis) ICD Codes: I82.409 - Acute embolism and thrombosis of unspecified deep veins of unspecified lower extremity Status: Chronic Plan: --on coumadin (5) C. difficile diarrhea ICD Codes: A04.72 - Enterocolitis due to Clostridium difficile, not specified as recurrent Plan: --on PO Vanco Assessment 51y/o female with stage IV adenocarcinoma, with liver and lung metastasis with unknown primary admitted with intractable pain mostly in lower spine. --was residing in [facility] and according to the patient she received radiation and chemotherapy. Subsequently she moved to [place] and [place]. --recently had DVT in her left lower extremity. was in [place] at that time. has been on anticoagulation. PET scan-->diffuse disease involving her lung, abdomen and bones. history of cervical cancer in 2006 treated with chemotherapy and radiation treatments. Bilateral lower extremity DVT Severe peripheral neuropathy. Plan continue pain management. Seems to be doing well with Oramorph 30mg PO TID. Encouraged patient to use breakthrough pain medication, dilaudid for pain in between Oramorph. -supportive care Problem Qualifiers (1) DVT (deep venous thrombosis): Coleman Hester MD Apr 30, 2017 15:00
[2017-04-30] MEDS: WARFARIN SOD 5 MG TAB PO SCH (16:59)
[2017-04-30] MEDS: FUROSEMIDE 20 MG/2 ML VIAL IV PUSH SCH (16:59)
[2017-04-30] MEDS: cefTRIAXone INJ 1,000 MG in SODIUM CHLORIDE 0.9% INJ 100 ML IV SCH (17:00)
[2017-05-01] VITALS (9 sets, daily range): BP systolic 99–114; BP diastolic 57–70; PULSE 105–123; RESP 15–20; TEMP 98.3–99.1; O2SAT 96–98
[2017-05-01] MEDS: HYDROmorphone HCL PF 2 MG/ML VIAL IV PUSH PRN ×5 (02:27→21:13)
[2017-05-01] MEDS: MORPHINE SULFATE 30 MG CONTROLLED RELEASE TAB PO SCH ×3 (02:33→17:17)
[2017-05-01 06:13] LABS: PROTHROMBIN TIME - PATIENT 19.8 SEC (9.8-11.6)
--- NOTE | 2017-05-01 09:46 | RADRPT ---
EXAM DATE/TIME: 04/27/2017 17:54 [facility] COMPARISON: No previous studies available for comparison. INDICATIONS : Pelvic mass, urinary retention, stage IV adenocarcinoma with metestatic disease. MEDICAL HISTORY : Intractable pain, Stage IV adenocarcinoma with metastasis to liver and lungs. Diarrhea Cervical cancer 2006 DVT Neuropathy SURGICAL HISTORY : Tonsillectomy Hernia repair BTL Total hysterectomy Left nephrostomy tube Port placmement ENCOUNTER: Initial ACUITY: 1 day PAIN SCORE: 10/10 LOCATION: Complete body pain FLUORO TIME: 1.5 minutes IMAGE SERIES: 3 CONTRAST: 30 cc Omnipaque 350 (iohexol) Suprapubic tube DEVICE(S): 1.) Lazcano catheter 16 FR PROCEDURE : 1. Ultrasound localization of the bladder. 2. Suprapubic catheter placement. 3. Conscious sedation with continuous EKG and oximetry monitoring. The risks, benefits and alternatives to the procedure were explained and verbal and written consent w as obtained. The site was prepped in sterile fashion. Full sterile technique was used, including ca p, mask, sterile gloves and gown and a large sterile sheet. Hand hygiene and 2% chlorhexidine and/or betadine/alcohol prep was utilized per protocol for cutaneous antisepsis. Sterile gel and sterile p robe cover were utilized for ultrasound guidance. The skin and subcutaneous tissues were infiltrated with local anesthetic solution. Utilizing ultrasound and fluoroscopic guidance the urinary bladder was localized. Just above the pub ic symphysis in the midline a dermatotomy was made and serial dilatation was performed to accept a [place] Lazcano catheter. The balloon was inflated and positive contrast was injected to document intr aluminal position. Conscious sedation was performed with the prescribed dosages and duration as above in the presence of an independent trained radiology nurse to assist in the monitoring of the patient. EKG and oximetry remained stable throughout the procedure. The patient tolerated the procedure well and there were n o complications. The patient was sent to post anesthesia recovery in stable condition. CONCLUSION: Uncomplicated suprapubic catheter placement. Boubacar Vicente MD on May 01, 2017 at 9:44 Board Certified Radiologist. This report was verified electronically.
--- NOTE | 2017-05-01 09:59 | HHI.PR ---
Subjective Remarks Follow-up metastasis disease and pain/anemia of chronic disease/DHEERAJ 04/28/17-patient seen and examined, complains of mild low back pain. Consistently tachycardia. Positive for hematuria. Low-grade fever yesterday at 7 PM with Tmax 100 however currently afebrile 04/29/17-patient seen and examined, patient still with low back pain. by the bedside and states he was not aware of patient's current terminal diagnosis. H&H improved posttransfusion 04/30/17-patient seen and examined, still spiking fever. States she has increased appetite today. by the bedside 05/01/17-patient seen and examined, currently afebrile. States she is having now constipation 2 days. Good appetite this morning. States everything is in the hands of God Objective Vitals Vital Signs Date Time Temp Pulse Resp B/P (MAP) Pulse Ox O2 Delivery O2 Flow Rate FiO2 05/01/17 08:41 98.7 116 18 113/64 (80) 98 05/01/17 05:38 98.6 113 17 102/57 (72) 96 05/01/17 03:30 16 05/01/17 02:57 16 05/01/17 00:09 99.1 118 20 105/63 (77) 98 04/30/17 20:52 98.3 112 18 107/60 (76) 98 04/30/17 20:19 114 04/30/17 17:59 99.0 117 18 98/66 (77) 98 04/30/17 16:57 99.7 114 18 107/63 (78) 99 04/30/17 16:15 99.3 120 18 115/64 (81) 99 04/30/17 15:00 98.4 136 18 108/76 (87) 97 04/30/17 12:25 99.0 114 18 114/72 (86) 96 I/O 04/30/17 04/30/17 04/30/17 05/01/17 05/01/17 05/01/17 07:00 15:00 23:00 07:00 15:00 23:00 Intake Total 240 ml 1080 ml Output Total 325 ml 650 ml 400 ml Balance -85 ml 430 ml -400 ml Intake Oral 240 ml 1080 ml Output Urine Total 150 ml 225 ml 250 ml Drainage Total 175 ml 425 ml 150 ml # Bowel Movements 0 Result Diagram: 04/30/1744704/30/17447 Objective Remarks GENERAL: NAD SKIN: Warm and dry. HEAD: Normocephalic. EYES: No scleral icterus. No injection or drainage. NECK: Supple, trachea midline. No JVD or lymphadenopathy. CARDIOVASCULAR: Regular rate and rhythm without murmurs, gallops, or rubs. RESPIRATORY: Breath sounds equal bilaterally. No accessory muscle use. GASTROINTESTINAL: Abdomen soft, non-tender, nondistended. MUSCULOSKELETAL: No cyanosis, or edema. BACK: Nontender without obvious deformity. No CVA tenderness. A/P Problem List: (1) Cancer associated pain ICD Code: G89.3 - Neoplasm related pain (acute) (chronic) Status: Acute (2) Protein calorie malnutrition ICD Code: E46 - Unspecified protein-calorie malnutrition (3) Diarrhea ICD Code: R19.7 - Diarrhea, unspecified (4) Metastatic disease ICD Code: C79.9 - Secondary malignant neoplasm of unspecified site (5) C. difficile diarrhea ICD Code: A04.72 - Enterocolitis due to Clostridium difficile, not specified as recurrent Assessment and Plan 51-year-old female with Metastatic disease History of stage IV adenocarcinoma of unknown primary. Management per oncology Will Need to consider hospice, however patient doesn't seem to be ready Normocytic anemia Transfused 1 unit packed red blood cell and monitor H&H Iron deficiency anemia Consider transfusion of Venofer Cancer associated pain Intractable pain in lower lumbar distribution in patient with a history of diffusely metastatic adenocarcinoma. --PET scan shows diffuse disease in lungs, abdomen and skeleton. --MRI lumbar spine pending --Continue ORAMORPH 60mg PO q 8+ Dilaudid 2mg IV q 2 hours deep venous thrombosis Continue with Coumadin and monitor INR C. difficile diarrhea-improving Continue with by mouth Vanco ARF s/p placement of Lazcano catheter by Urology Monitor Bun/Cr Trey Elkins MD May 01, 2017 09:59
[2017-05-01] MEDS: VANCOMYCIN 500 MG VIAL (FOR ORAL USE ONLY) PO SCH ×4 (10:12→21:12)
[2017-05-01] MEDS: DOCUSATE SODIUM 50 MG/SENNA 8.6 MG TAB PO SCH ×2 (10:12→21:12)
[2017-05-01] MEDS: SODIUM CHLORIDE 0.9% FLUSH 10 ML FLUSH IV FLUSH SCH ×2 (10:17→21:16)
[2017-05-01] MEDS: FUROSEMIDE 20 MG/2 ML VIAL IV PUSH SCH ×2 (10:23→17:17)
[2017-05-01 10:49] LABS: AUTOMATED NEUTROPHIL # 9.3 TH/MM3 (1.8-7.7); BASOPHIL % 0.3 % (0.0-2.0); EOSINOPHIL # 0.1 TH/MM3 (0-0.4); EOSINOPHIL % 0.7 % (0.0-4.0); HEMATOCRIT 24.1 % (35.0-46.0); HEMOGLOBIN 7.8 GM/DL (11.6-15.3); LYMPH % 7.5 % (9.0-44.0); LYMPHOCYTE # 0.9 TH/MM3 (1.0-4.8); MEAN CELL VOLUME 85.7 FL (80.0-100.0); MEAN CORPUSCULAR HEMOGLOBIN 27.9 PG (27.0-34.0); MEAN CORPUSCULAR HGB CONC 32.5 % (32.0-36.0); MEAN PLATELET VOLUME 7.9 FL (7.0-11.0); MONO % 10.3 % (0.0-8.0); MONOCYTE # 1.2 TH/MM3 (0-0.9); NEUT % 81.2 % (16.0-70.0); PLATELET COUNT 439 TH/MM3 (150-450); RED BLOOD COUNT 2.81 MIL/MM3 (4.00-5.30); RED CELL DISTRIBUTION WIDTH 17.6 % (11.6-17.2); WHITE BLOOD COUNT 11.4 TH/MM3 (4.0-11.0)
[2017-05-01 11:18] LABS: BICARBONATE 24.2 MEQ/L (21.0-32.0); CALCIUM 9.3 MG/DL (8.5-10.1); CREATININE 1.42 MG/DL (0.50-1.00)
[2017-05-01] MEDS ORDERED: ACETAMINOPHEN 325 MG TAB PO PRN (12:30)
[2017-05-01] MEDS ORDERED: SODIUM CHLOR 0.9% 250 ML INJ 250 ML IV ONE (12:30)
[2017-05-01] MEDS ORDERED: diphenhydrAMINE HCL 25 MG CAP PO PRN (12:30)
--- NOTE | 2017-05-01 12:43 | PD.ONC.PN ---
Subjective Subjective Remarks Afebrile overnight. Patient still having significant back pain, requiring quite a bit of breakthrough pain medication. States pain is usually controlled with oramorph and dilaudid, but when she wakes up from sleeping it feels uncontrolled until she is able to receive the dilaudid again. Objective Data Date Time Temp Pulse Resp B/P (MAP) Pulse Ox O2 Delivery O2 Flow Rate FiO2 05/01/17 08:41 98.7 116 18 113/64 (80) 98 05/01/17 05:38 98.6 113 17 102/57 (72) 96 05/01/17 03:30 16 05/01/17 02:57 16 05/01/17 00:09 99.1 118 20 105/63 (77) 98 04/30/17 20:52 98.3 112 18 107/60 (76) 98 04/30/17 20:19 114 04/30/17 17:59 99.0 117 18 98/66 (77) 98 04/30/17 16:57 99.7 114 18 107/63 (78) 99 04/30/17 16:15 99.3 120 18 115/64 (81) 99 04/30/17 15:00 98.4 136 18 108/76 (87) 97 05/01/17 05/01/17 05/01/17 07:00 15:00 23:00 Output Total 400 ml Balance -400 ml Result Diagram: 05/01/17 1030 05/01/17 1030 Laboratory Results Laboratory Tests Test 05/01/17 05:35 05/01/17 10:30 Prothrombin Time 19.8 SEC Prothromb Time International Ratio 2.0 RATIO White Blood Count 11.4 TH/MM3 Red Blood Count 2.81 MIL/MM3 Hemoglobin 7.8 GM/DL Hematocrit 24.1 % Mean Corpuscular Volume 85.7 FL Mean Corpuscular Hemoglobin 27.9 PG Mean Corpuscular Hemoglobin Concent 32.5 % Red Cell Distribution Width 17.6 % Platelet Count 439 TH/MM3 Mean Platelet Volume 7.9 FL Neutrophils (%) (Auto) 81.2 % Lymphocytes (%) (Auto) 7.5 % Monocytes (%) (Auto) 10.3 % Eosinophils (%) (Auto) 0.7 % Basophils (%) (Auto) 0.3 % Neutrophils # (Auto) 9.3 TH/MM3 Lymphocytes # (Auto) 0.9 TH/MM3 Monocytes # (Auto) 1.2 TH/MM3 Eosinophils # (Auto) 0.1 TH/MM3 Basophils # (Auto) 0.0 TH/MM3 CBC Comment AUTO DIFF Differential Comment AUTO DIFF CONFIRMED Platelet Estimate HIGH Platelet Morphology Comment NORMAL Blood Urea Nitrogen 42 MG/DL Creatinine 1.42 MG/DL Random Glucose 120 MG/DL Calcium Level 9.3 MG/DL Sodium Level 132 MEQ/L Potassium Level 4.8 MEQ/L Chloride Level 97 MEQ/L Carbon Dioxide Level 24.2 MEQ/L Anion Gap 11 MEQ/L Estimat Glomerular Filtration Rate 47 ML/MIN Administered Medications Medications (Trade) Dose Ordered Sig/Erendira Route PRN Reason Start Time Stop Time Status Last Admin Dose Admin Sodium Chloride (NS Flush) 2 ml UNSCH PRN IV FLUSH FLUSH AFTER USING IV ACCESS 04/25/17 18:15 04/26/17 07:40 Sodium Chloride (NS Flush) 2 ml BID IV FLUSH 04/25/17 21:00 05/01/17 10:17 Senna/Docusate Sodium (Julieta-Colace) 1 tab BID PO 04/26/17 09:00 05/01/17 10:12 Warfarin Sodium (Coumadin) 5 mg DAILY@1600 PO 04/26/17 16:00 04/30/17 16:59 Miscellaneous Information 1 Q3D T-DERMAL 04/29/17 09:00 04/29/17 08:54 Vancomycin HCl (VANCOMYCIN for oral use only) 125 mg QID PO 04/26/17 09:00 05/01/17 10:12 Hydromorphone HCl (Dilaudid Pf Inj) 2 mg Q2HR PRN IV PUSH pain >5 04/27/17 15:00 05/01/17 10:12 Ceftriaxone Sodium 1000 mg/ Sodium Chloride 100 ml @ 200 mls/hr Q24H IV 04/28/17 17:00 04/30/17 17:00 Furosemide (Lasix Inj) 20 mg BID@09,18 IV PUSH 04/30/17 18:00 05/01/17 10:23 Objective Remarks GENERAL: Middle aged female sitting up in bed, appears uncomfortable. SKIN: Warm and dry. HEAD: Normocephalic. EYES: No injection or drainage. NECK: Supple, trachea midline. CARDIOVASCULAR: Regular rate and rhythm RESPIRATORY: Breath sounds equal bilaterally. No accessory muscle use. Back: spine is midline, nephrostomy tube in place on the left. GASTROINTESTINAL: Abdomen soft, non-tender, nondistended. suprapubic catheter in place. EXTREMITIES: No cyanosis NEUROLOGICAL: awake and alert, normal speech. Assessment/Plan Problem List: (1) Metastatic disease ICD Codes: C79.9 - Secondary malignant neoplasm of unspecified site Plan: --history of stage IV adenocarcinoma of unknown primary. --thought to be possibly primary neoplasm of upper digestive origin, such has cholangio, pancreatic or gastric. (2) Normocytic anemia ICD Codes: D64.9 - Anemia, unspecified Plan: --transfuse as needed. (3) Cancer associated pain ICD Codes: G89.3 - Neoplasm related pain (acute) (chronic) Status: Acute Plan: --intractable pain in lower lumbar distribution in patient with a history of diffusely metastatic adenocarcinoma. --PET scan shows diffuse disease in lungs, abdomen and skeleton. --MRI lumbar spine pending --currently on ORAMORPH 30mg PO q 8+ Dilaudid 2mg IV q 2 hours (4) DVT (deep venous thrombosis) ICD Codes: I82.409 - Acute embolism and thrombosis of unspecified deep veins of unspecified lower extremity Status: Chronic Plan: --on coumadin (5) C. difficile diarrhea ICD Codes: A04.72 - Enterocolitis due to Clostridium difficile, not specified as recurrent Plan: --on PO Vanco Assessment 51y/o female with stage IV adenocarcinoma, with liver and lung metastasis with unknown primary admitted with intractable pain mostly in lower spine. --was residing in [facility] and according to the patient she received radiation and chemotherapy. Subsequently she moved to [facility]. --recently had DVT in her left lower extremity. was in [place] at that time. has been on anticoagulation. PET scan-->diffuse disease involving her lung, abdomen and bones. history of cervical cancer in 2005 treated with chemotherapy and radiation treatments. Bilateral lower extremity DVT Severe peripheral neuropathy. Plan 1. Dr. Hester will be by later this afternoon to review treatment options with patient 2. increase Oramorph to 60mg PO q 8 hours. continue dilaudid IV for breakthrough pain. 3. continue bowel regimen with julieta-colace. 4. give one unit pRBC Attending Statement The exam, history, and the medical decision-making described in the above note were completed with the assistance of the mid-level provider. I reviewed and agree with the findings presented. I attest that I had a [id number] encounter with the patient on the same day, and personally performed and documented my assessment and findings in the medical record. Long discussion with patient again today discussed prognosis and the fact that she has incurable disease of unknown primary cancer--likely upper GI based on pathology She wants to pursue aggressive treatment and not interested in palliative care Treatment will be palliative in nature --disease is not curable Goal of treatment would be to try to control disease and preserve quality of life and minimize toxicity will treat with an GI malignancy regimens--limitation include peripheral neuropathy and kidney dysfunction at baseline FOLFOX vs. Carbo/[place] plus bevacizumab In this situation, Carboplatin (AUC 4) plus gemcitabine (1000 mg/m2 on days 1 and 8) with bevacizumab 15 mg/kg every 3 weeks will be better option given prior hx of Cervical cancer Check Tumor markers at baseline CEA, CA 125, CA19-9, CA 15-3 and LDH Ask pathology for IHC for ER/HI and HER 2 nu status continue to focus on nutrition and PT Ensure plus TID with meals Heel Attacher consult Anemia -- transfuse 1 unit of pRBC today Approximately 40 minutes spent in face to face evaluation of this patient d/w rn o/n events reviewed Problem Qualifiers (1) DVT (deep venous thrombosis): Debra Newell May 01, 2017 12:43 Coleman Hester MD May 02, 2017 00:54
--- NOTE | 2017-05-01 17:07 | HHI.NPPN ---
Subjective General Problems: Anemia, Edema Renal Failure: Chronic, Acute, Stage III History of Present Illness 51-year-old female with a past medical history of cervical cancer diagnosed in 2006m recurrence with stage IV metastatic adenocarcinoma of unknown primary etiology, history of peripheral neuropathy, chronic back pain who came to the hospital with complaint of increased swelling of the legs and back pain. I was called to see the patient because of elevated BUN, creatinine and swelling of the legs. The patient has creatinine in the range of 1.2 to 1.5 most of the time in the past. Additional Remarks Patient is alert, no abd. pain, eating better, no BM today. Review of Systems General Constitutional: Fatigue Cardiovascular Cardiac: Edema, SAUCEDA Gastrointestinal Gastrointestinal: Abdominal Pain Objective Data Data 05/01/17 05/02/17 19:00 07:00 Output Total 275 ml Balance -275 ml Drainage Total 275 ml Vital Signs Date Time Temp Pulse Resp B/P (MAP) Pulse Ox O2 Delivery O2 Flow Rate FiO2 05/01/17 13:48 98.7 107 18 114/70 (85) 97 05/01/17 10:42 18 05/01/17 10:42 18 05/01/17 08:41 98.7 116 18 113/64 (80) 98 05/01/17 05:38 98.6 113 17 102/57 (72) 96 05/01/17 00:09 99.1 118 20 105/63 (77) 98 04/30/17 20:52 98.3 112 18 107/60 (76) 98 04/30/17 20:19 114 04/30/17 17:59 99.0 117 18 98/66 (77) 98 -: 05/01/17 1030 05/01/17 1030 Physical Exam General Appearance: No Acute Distress, Comfortable Eyes Eye Exam: Pupils Equal Neck Neck Exam: Neck Supple Pulmonary Resp Exam: Breath Sounds Equal, No Distress, Rhonchi, Decreased Bases Cardiology CV Exam: Regular, Normal Sinus Rhythm Gastrointestinal/Abdomen GI Exam: Soft, Non-Tender, Bowel Sounds Present, Distended Extremeties Extremities Exam: Moderate Edema, Pitting Edema, Dependent Edema Neurologic Neuro Exam: Alert, Awake, Oriented Psychiatric Psych Exam: Appropriate Responses Assessment/Plan Assessment Summary: YADI/Acute Renal Failure, Fluid/Volume Overload, CKD Stage III Problem List: (1) Anemia ICD Codes: D64.9 - Anemia, unspecified Status: Chronic (2) UTI (urinary tract infection) ICD Codes: N39.0 - Urinary tract infection, site not specified (3) Low back pain ICD Codes: M54.5 - Low back pain Status: Chronic (4) C. difficile diarrhea ICD Codes: A04.72 - Enterocolitis due to Clostridium difficile, not specified as recurrent (5) Metastatic disease ICD Codes: C79.9 - Secondary malignant neoplasm of unspecified site (6) Urinary retention ICD Codes: R33.9 - Retention of urine, unspecified (7) CKD (chronic kidney disease), stage III ICD Codes: N18.3 - Chronic kidney disease, stage 3 (moderate) Plan Patient has Chronic kidney disease and develop YADI. Has Left Nephrostomy. Creatinine is now 1.4. Now afebrile. On Vanco. PO and Ceftriaxone. Continue antibiotics. Follow the urine out put and BMP. Has low urine out put and increasing edema. On Lasix 20 mg BID. Edema is improving. Christo Gregorio MD May 01, 2017 17:07
[2017-05-01] MEDS: cefTRIAXone INJ 1,000 MG in SODIUM CHLORIDE 0.9% INJ 100 ML IV SCH (17:16)
[2017-05-01] MEDS: WARFARIN SOD 5 MG TAB PO SCH (17:16)
[2017-05-02] VITALS (11 sets, daily range): BP systolic 94–127; BP diastolic 54–79; PULSE 102–136; RESP 16–18; TEMP 98.1–99.6; O2SAT 95–100
[2017-05-02] MEDS: MORPHINE SULFATE 30 MG CONTROLLED RELEASE TAB PO SCH ×3 (01:30→17:49)
[2017-05-02] MEDS: HYDROmorphone HCL PF 2 MG/ML VIAL IV PUSH PRN ×4 (04:38→20:29)
[2017-05-02 05:28] LABS: BASOPHIL % 0.3 % (0.0-2.0); EOSINOPHIL # 0.2 TH/MM3 (0-0.4); EOSINOPHIL % 1.5 % (0.0-4.0); HEMATOCRIT 26.3 % (35.0-46.0); HEMOGLOBIN 8.5 GM/DL (11.6-15.3); LYMPH % 8.6 % (9.0-44.0); LYMPHOCYTE # 0.9 TH/MM3 (1.0-4.8); MEAN CELL VOLUME 85.9 FL (80.0-100.0); MEAN CORPUSCULAR HEMOGLOBIN 27.8 PG (27.0-34.0); MEAN CORPUSCULAR HGB CONC 32.4 % (32.0-36.0); MEAN PLATELET VOLUME 7.6 FL (7.0-11.0); MONO % 11.5 % (0.0-8.0); MONOCYTE # 1.2 TH/MM3 (0-0.9); NEUT % 78.1 % (16.0-70.0); PLATELET COUNT 378 TH/MM3 (150-450); RED BLOOD COUNT 3.06 MIL/MM3 (4.00-5.30); RED CELL DISTRIBUTION WIDTH 16.6 % (11.6-17.2); WHITE BLOOD COUNT 10.3 TH/MM3 (4.0-11.0)
[2017-05-02 05:38] LABS: INTERNATIONAL NORMALIZED RATIO 2.2 RATIO; PROTHROMBIN TIME - PATIENT 22.7 SEC (9.8-11.6)
[2017-05-02 05:58] LABS: BICARBONATE 24.3 MEQ/L (21.0-32.0); CALCIUM 9.1 MG/DL (8.5-10.1); CREATININE 1.19 MG/DL (0.50-1.00)
[2017-05-02] MEDS: REMOVE OLD DURAGESIC (FENTANYL) PATCH T-DERMAL SCH (08:44)
[2017-05-02] MEDS: VANCOMYCIN 500 MG VIAL (FOR ORAL USE ONLY) PO SCH ×4 (09:35→20:30)
[2017-05-02] MEDS: FUROSEMIDE 20 MG/2 ML VIAL IV PUSH SCH ×2 (09:35→17:49)
[2017-05-02] MEDS: MULTIVITAMINS/MINERALS THERAPEUTIC TAB PO SCH (09:35)
[2017-05-02] MEDS: SODIUM CHLORIDE 0.9% FLUSH 10 ML FLUSH IV FLUSH SCH ×2 (09:35→20:30)
[2017-05-02] MEDS: DOCUSATE SODIUM 50 MG/SENNA 8.6 MG TAB PO SCH ×2 (09:35→20:38)
--- NOTE | 2017-05-02 10:38 | PD.ONC.PN ---
Subjective Subjective Remarks Afebrile overnight. Patient resting in bed. Pain better controlled with increase in oramorph. still needing occasional dilaudid for breakthrough pain. Objective Data Date Time Temp Pulse Resp B/P (MAP) Pulse Ox O2 Delivery O2 Flow Rate FiO2 05/02/17 09:27 99.6 123 18 127/77 (94) 97 05/02/17 04:30 98.3 102 16 104/60 (75) 100 05/02/17 01:27 98.1 109 16 94/54 98 05/01/17 23:01 98.3 106 16 104/69 98 05/01/17 22:43 98.5 105 16 99/62 98 05/01/17 22:24 98.4 112 15 104/70 98 05/01/17 21:07 98.6 112 16 110/66 (81) 97 05/01/17 14:30 18 05/01/17 13:48 98.7 107 18 114/70 (85) 97 05/01/17 10:42 18 05/02/17 05/02/17 05/02/17 07:00 15:00 23:00 Intake Total 640 ml Output Total 500 ml Balance 140 ml Result Diagram: 05/02/17 0440 05/02/17 0440 Laboratory Results Laboratory Tests Test 05/02/17 04:40 White Blood Count 10.3 TH/MM3 Red Blood Count 3.06 MIL/MM3 Hemoglobin 8.5 GM/DL Hematocrit 26.3 % Mean Corpuscular Volume 85.9 FL Mean Corpuscular Hemoglobin 27.8 PG Mean Corpuscular Hemoglobin Concent 32.4 % Red Cell Distribution Width 16.6 % Platelet Count 378 TH/MM3 Mean Platelet Volume 7.6 FL Neutrophils (%) (Auto) 78.1 % Lymphocytes (%) (Auto) 8.6 % Monocytes (%) (Auto) 11.5 % Eosinophils (%) (Auto) 1.5 % Basophils (%) (Auto) 0.3 % Neutrophils # (Auto) 8.0 TH/MM3 Lymphocytes # (Auto) 0.9 TH/MM3 Monocytes # (Auto) 1.2 TH/MM3 Eosinophils # (Auto) 0.2 TH/MM3 Basophils # (Auto) 0.0 TH/MM3 CBC Comment DIFF FINAL Differential Comment Prothrombin Time 22.7 SEC Prothromb Time International Ratio 2.2 RATIO Blood Urea Nitrogen 41 MG/DL Creatinine 1.19 MG/DL Random Glucose 106 MG/DL Calcium Level 9.1 MG/DL Sodium Level 133 MEQ/L Potassium Level 4.7 MEQ/L Chloride Level 100 MEQ/L Carbon Dioxide Level 24.3 MEQ/L Anion Gap 9 MEQ/L Estimat Glomerular Filtration Rate 58 ML/MIN Administered Medications Medications (Trade) Dose Ordered Sig/Erendira Route PRN Reason Start Time Stop Time Status Last Admin Dose Admin Sodium Chloride (NS Flush) 2 ml UNSCH PRN IV FLUSH FLUSH AFTER USING IV ACCESS 04/25/17 18:15 04/26/17 07:40 Sodium Chloride (NS Flush) 2 ml BID IV FLUSH 04/25/17 21:00 05/02/17 09:35 Senna/Docusate Sodium (Julieta-Colace) 1 tab BID PO 04/26/17 09:00 05/02/17 09:35 Miscellaneous Information 1 Q3D T-DERMAL 04/29/17 09:00 04/29/17 08:54 Vancomycin HCl (VANCOMYCIN for oral use only) 125 mg QID PO 04/26/17 09:00 05/02/17 09:35 Hydromorphone HCl (Dilaudid Pf Inj) 2 mg Q2HR PRN IV PUSH pain >5 04/27/17 15:00 05/02/17 04:38 Ceftriaxone Sodium 1000 mg/ Sodium Chloride 100 ml @ 200 mls/hr Q24H IV 04/28/17 17:00 05/01/17 17:16 Furosemide (Lasix Inj) 20 mg BID@09,18 IV PUSH 04/30/17 18:00 05/02/17 09:35 Morphine Sulfate (Oramorph Sr) 60 mg Q8H PO 05/01/17 18:00 05/02/17 09:34 Multivitamins/ Minerals Therapeutic (Theragran M Tab) 1 tab DAILY PO 05/02/17 09:00 05/02/17 09:35 Objective Remarks GENERAL: Middle aged female upright in bed, eating breakfast. SKIN: Warm and dry. HEAD: Normocephalic. EYES: No injection or drainage. NECK: Supple, trachea midline. CARDIOVASCULAR: Regular rate and rhythm RESPIRATORY: Breath sounds equal bilaterally. No accessory muscle use. : nephrostomy tube in place on the left. suprapubic catheter in place. GASTROINTESTINAL: Abdomen soft, non-tender, nondistended. EXTREMITIES: No cyanosis NEUROLOGICAL: awake and alert, normal speech. Assessment/Plan Problem List: (1) Metastatic disease ICD Codes: C79.9 - Secondary malignant neoplasm of unspecified site Plan: 05/02: start chemotherapy with Carboplatin, Gemcitabine, Avastin. --history of stage IV adenocarcinoma of unknown primary. --thought to be possibly primary neoplasm of upper digestive origin, such has cholangio, pancreatic or gastric. (2) Normocytic anemia ICD Codes: D64.9 - Anemia, unspecified Plan: --transfuse as needed. (3) Cancer associated pain ICD Codes: G89.3 - Neoplasm related pain (acute) (chronic) Status: Acute Plan: --pain improved on current regimen --PET scan shows diffuse disease in lungs, abdomen and skeleton. --currently on ORAMORPH 60mg PO q 8+ Dilaudid 2mg IV q 2 hours (4) DVT (deep venous thrombosis) ICD Codes: I82.409 - Acute embolism and thrombosis of unspecified deep veins of unspecified lower extremity Status: Chronic Plan: --on coumadin (5) C. difficile diarrhea ICD Codes: A04.72 - Enterocolitis due to Clostridium difficile, not specified as recurrent Plan: --on PO Vanco Assessment 51y/o female with stage IV adenocarcinoma, with liver and lung metastasis with unknown primary admitted with intractable pain mostly in lower spine. --was residing in [facility] and according to the patient she received radiation and chemotherapy. Subsequently she moved to [place] and [place]. --recently had DVT in her left lower extremity. was in [place] at that time. has been on anticoagulation. PET scan-->diffuse disease involving her lung, abdomen and bones. history of cervical cancer in 2005 treated with chemotherapy and radiation treatments. Bilateral lower extremity DVT Severe peripheral neuropathy. Plan 1. continue current pain regimen 2. start chemotherapy with Carboplatin, Gemcitabine, and Avastin today. will do chemo teaching prior to administration. 3. monitor labs Attending Statement The exam, history, and the medical decision-making described in the above note were completed with the assistance of the mid-level provider. I reviewed and agree with the findings presented. I attest that I had a [id number] encounter with the patient on the same day, and personally performed and documented my assessment and findings in the medical record. Initiation of systemic chemotherapy today. Orders placed potential side-effects and benefits discussed questions answered closely monitor CBC and CMP Hb 8.7 today --no blood products On PO Vancomycin for c.diff pain under control ambulate maximize oral intake d/w rn o/n events reviewed Problem Qualifiers (1) DVT (deep venous thrombosis): Debra Newell May 02, 2017 10:38 Coleman Hester MD May 02, 2017 23:43
--- NOTE | 2017-05-02 11:58 | HHI.PR ---
Subjective Remarks Follow-up metastasis disease and pain/anemia of chronic disease/DHEERAJ 04/28/17-patient seen and examined, complains of mild low back pain. Consistently tachycardia. Positive for hematuria. Low-grade fever yesterday at 7 PM with Tmax 100 however currently afebrile 04/29/17-patient seen and examined, patient still with low back pain. by the bedside and states he was not aware of patient's current terminal diagnosis. H&H improved posttransfusion 04/30/17-patient seen and examined, still spiking fever. States she has increased appetite today. by the bedside 05/01/17-patient seen and examined, currently afebrile. States she is having now constipation 2 days. Good appetite this morning. States everything is in the hands of God 05/02/17-patient seen and examined, reports pain control now with increase by mouth med. Plan for chemotherapy today Objective Vitals Vital Signs Date Time Temp Pulse Resp B/P (MAP) Pulse Ox O2 Delivery O2 Flow Rate FiO2 05/02/17 11:39 98.7 130 18 110/73 (85) 98 05/02/17 09:27 99.6 123 18 127/77 (94) 97 05/02/17 04:30 98.3 102 16 104/60 (75) 100 05/02/17 01:27 98.1 109 16 94/54 98 05/01/17 23:01 98.3 106 16 104/69 98 05/01/17 22:43 98.5 105 16 99/62 98 05/01/17 22:24 98.4 112 15 104/70 98 05/01/17 21:07 98.6 112 16 110/66 (81) 97 05/01/17 14:30 18 05/01/17 13:48 98.7 107 18 114/70 (85) 97 I/O 05/01/17 05/01/17 05/01/17 05/02/17 05/02/17 05/02/17 07:00 15:00 23:00 07:00 15:00 23:00 Intake Total 1060 ml 640 ml Output Total 400 ml 275 ml 475 ml 500 ml Balance -400 ml -275 ml 585 ml 140 ml Intake Oral 960 ml 240 ml IV Total 100 ml Packed Cells 400 ml Output Urine Total 250 ml 250 ml 250 ml Drainage Total 150 ml 275 ml 225 ml 250 ml # Voids 1 # Bowel Movements 1 Result Diagram: 05/02/17 0440 05/02/17439 Objective Remarks GENERAL: NAD SKIN: Warm and dry. HEAD: Normocephalic. EYES: No scleral icterus. No injection or drainage. NECK: Supple, trachea midline. No JVD or lymphadenopathy. CARDIOVASCULAR: Regular rate and rhythm without murmurs, gallops, or rubs. RESPIRATORY: Breath sounds equal bilaterally. No accessory muscle use. GASTROINTESTINAL: Abdomen soft, non-tender, nondistended. MUSCULOSKELETAL: No cyanosis, or edema. BACK: Nontender without obvious deformity. No CVA tenderness. A/P Problem List: (1) Cancer associated pain ICD Code: G89.3 - Neoplasm related pain (acute) (chronic) Status: Acute (2) Protein calorie malnutrition ICD Code: E46 - Unspecified protein-calorie malnutrition (3) Diarrhea ICD Code: R19.7 - Diarrhea, unspecified (4) Metastatic disease ICD Code: C79.9 - Secondary malignant neoplasm of unspecified site (5) C. difficile diarrhea ICD Code: A04.72 - Enterocolitis due to Clostridium difficile, not specified as recurrent Assessment and Plan 51-year-old female with Metastatic disease History of stage IV adenocarcinoma of unknown primary. Management per oncology Plan for chemotherapy today 05/02/17 Normocytic anemia Transfused 1 unit packed red blood cell and monitor H&H Iron deficiency anemia Consider transfusion of Venofer Cancer associated pain Intractable pain in lower lumbar distribution in patient with a history of diffusely metastatic adenocarcinoma. --PET scan shows diffuse disease in lungs, abdomen and skeleton. --MRI lumbar spine pending --Continue ORAMORPH 60mg PO q 8+ Dilaudid 2mg IV q 2 hours deep venous thrombosis Continue with Coumadin and monitor INR C. difficile diarrhea-improving Continue with by mouth Vanco ARF s/p placement of Lazcano catheter by Urology Monitor Bun/Cr Trey Elkins MD May 02, 2017 11:58
[2017-05-02] MEDS ORDERED: GRANISETRON HCL 1 MG/ML VIAL IV PUSH ONE (13:30)
[2017-05-02] MEDS ORDERED: DEXAMETHASONE INJ 10 MG in SODIUM CHLORIDE 0.9% INJ 50 ML IV ONE (13:30)
[2017-05-02] MEDS ORDERED: BEVACIZUMAB IV ONE (14:00)
[2017-05-02] MEDS ORDERED: SODIUM CHLORIDE 0.9% IV ONE (14:00)
[2017-05-02] MEDS ORDERED: SODIUM CHLOR 0.9% 250 ML INJ 250 ML IV SCH ×2 (14:00→15:30)
[2017-05-02] MEDS ORDERED: SODIUM CHLOR 0.9% IV ONE ×2 (15:30→16:00)
[2017-05-02] MEDS ORDERED: GEMCITABINE IV ONE (15:30)
[2017-05-02] MEDS ORDERED: CARBOPLATIN IV ONE (16:00)
[2017-05-02] MEDS ORDERED: WARFARIN SOD 4 MG TAB PO SCH (16:00)
[2017-05-02 16:45] LABS: CARCINOEMBRYONIC ANTIGEN 824.3 NG/ML (0.2-5.0)
[2017-05-02 17:21] LABS: CA 125 202.9 U/ML (0.0-30.2)
[2017-05-02 17:22] LABS: CA 19-9 45.6 U/ML (0.0-35.0)
--- NOTE | 2017-05-02 17:23 | HHI.NPPN ---
Subjective General Problems: Anemia, Edema Renal Failure: Chronic, Acute, Stage III History of Present Illness 51-year-old female with a past medical history of cervical cancer diagnosed in 2005m recurrence with stage IV metastatic adenocarcinoma of unknown primary etiology, history of peripheral neuropathy, chronic back pain who came to the hospital with complaint of increased swelling of the legs and back pain. I was called to see the patient because of elevated BUN, creatinine and swelling of the legs. The patient has creatinine in the range of 1.2 to 1.5 most of the time in the past. Additional Remarks Patient is alert, no abd. pain, eating better, not in distress. Review of Systems General Constitutional: Fatigue Cardiovascular Cardiac: Edema, SAUCEDA Gastrointestinal Gastrointestinal: Abdominal Pain Objective Data Data 05/02/17 05/03/17 19:00 07:00 Intake Total 52.5 ml Output Total 300 ml Balance -247.5 ml IV Total 52.5 ml Drainage Total 300 ml Vital Signs Date Time Temp Pulse Resp B/P (MAP) Pulse Ox O2 Delivery O2 Flow Rate FiO2 05/02/17 17:02 98.7 122 18 119/79 (92) 96 05/02/17 15:48 99.5 133 18 127/77 (94) 95 05/02/17 15:15 98.9 136 18 108/70 (83) 96 05/02/17 11:39 98.7 130 18 110/73 (85) 98 05/02/17 09:27 99.6 123 18 127/77 (94) 97 05/02/17 04:30 98.3 102 16 104/60 (75) 100 05/02/17 01:27 98.1 109 16 94/54 98 05/01/17 23:01 98.3 106 16 104/69 98 05/01/17 22:43 98.5 105 16 99/62 98 05/01/17 22:24 98.4 112 15 104/70 98 05/01/17 21:07 98.6 112 16 110/66 (81) 97 -: 05/02/17 0440 05/02/17 0440 Physical Exam General Appearance: No Acute Distress, Comfortable Eyes Eye Exam: Pupils Equal Neck Neck Exam: Neck Supple Pulmonary Resp Exam: Breath Sounds Equal, No Distress, Rhonchi, Decreased Bases Cardiology CV Exam: Regular, Normal Sinus Rhythm Gastrointestinal/Abdomen GI Exam: Soft, Non-Tender, Bowel Sounds Present, Distended Extremeties Extremities Exam: Moderate Edema, Pitting Edema, Dependent Edema Neurologic Neuro Exam: Alert, Awake, Oriented Psychiatric Psych Exam: Appropriate Responses Assessment/Plan Assessment Summary: YADI/Acute Renal Failure, Fluid/Volume Overload, CKD Stage III Problem List: (1) Anemia ICD Codes: D64.9 - Anemia, unspecified Status: Chronic (2) UTI (urinary tract infection) ICD Codes: N39.0 - Urinary tract infection, site not specified (3) Low back pain ICD Codes: M54.5 - Low back pain Status: Chronic (4) C. difficile diarrhea ICD Codes: A04.72 - Enterocolitis due to Clostridium difficile, not specified as recurrent (5) Metastatic disease ICD Codes: C79.9 - Secondary malignant neoplasm of unspecified site (6) Urinary retention ICD Codes: R33.9 - Retention of urine, unspecified (7) CKD (chronic kidney disease), stage III ICD Codes: N18.3 - Chronic kidney disease, stage 3 (moderate) Plan Patient has Chronic kidney disease and develop YADI. Has Left Nephrostomy. Creatinine is improving, now 1.19. Now afebrile. On Vanco. PO and Ceftriaxone. Continue antibiotics. Follow the urine out put and BMP. Has low urine out put and increasing edema. On Lasix 20 mg BID. Edema is improving. Started on Chemotherapy, follow the BMP. Christo Gregorio MD May 02, 2017 17:23
[2017-05-02 17:32] LABS: CA 15-3 32.1 U/ML (0.0-32.4)
[2017-05-02] MEDS: cefTRIAXone INJ 1,000 MG in SODIUM CHLORIDE 0.9% INJ 100 ML IV SCH (19:29)
[2017-05-03] VITALS (8 sets, daily range): BP systolic 100–120; BP diastolic 62–86; PULSE 93–110; RESP 16–20; TEMP 97.4–98.2; O2SAT 96–99
[2017-05-03] MEDS: HYDROmorphone HCL PF 2 MG/ML VIAL IV PUSH PRN ×4 (00:33→21:48)
[2017-05-03] MEDS: MORPHINE SULFATE 30 MG CONTROLLED RELEASE TAB PO SCH ×3 (03:16→18:08)
[2017-05-03 06:53] LABS: INTERNATIONAL NORMALIZED RATIO 1.7 RATIO; PROTHROMBIN TIME - PATIENT 17.6 SEC (9.8-11.6)
[2017-05-03 07:08] LABS: ALBUMIN 1.3 GM/DL (3.4-5.0); AST (GOT) 49 U/L (15-37); BICARBONATE 23.3 MEQ/L (21.0-32.0); BLOOD UREA NITROGEN 44 MG/DL (7-18); CALCIUM 8.9 MG/DL (8.5-10.1); CHLORIDE 100 MEQ/L (98-107); CREATININE 1.19 MG/DL (0.50-1.00); GLOMERULAR FILTRATION RATE 58 ML/MIN (>89); GLUCOSE,RANDOM 144 MG/DL (74-106); SODIUM (NA) 134 MEQ/L (136-145)
[2017-05-03 07:09] LABS: ALT (GPT) 28 U/L (10-53)
[2017-05-03 07:11] LABS: ALKALINE PHOSPHATASE 220 U/L (45-117); TOTAL BILIRUBIN ADULT 0.3 MG/DL (0.2-1.0); TOTAL PROTEIN 6.6 GM/DL (6.4-8.2)
[2017-05-03 07:21] LABS: AUTOMATED NEUTROPHIL # 10.4 TH/MM3 (1.8-7.7); BASOPHIL % 0.4 % (0.0-2.0); HEMATOCRIT 25.8 % (35.0-46.0); HEMOGLOBIN 8.3 GM/DL (11.6-15.3); LYMPH % 3.7 % (9.0-44.0); LYMPHOCYTE # 0.4 TH/MM3 (1.0-4.8); MEAN CELL VOLUME 85.9 FL (80.0-100.0); MEAN CORPUSCULAR HEMOGLOBIN 27.7 PG (27.0-34.0); MEAN CORPUSCULAR HGB CONC 32.3 % (32.0-36.0); MEAN PLATELET VOLUME 8.4 FL (7.0-11.0); MONO % 4.1 % (0.0-8.0); MONOCYTE # 0.5 TH/MM3 (0-0.9); NEUT % 91.8 % (16.0-70.0); PLATELET COUNT 395 TH/MM3 (150-450); RED BLOOD COUNT 3.01 MIL/MM3 (4.00-5.30); RED CELL DISTRIBUTION WIDTH 17.3 % (11.6-17.2); WHITE BLOOD COUNT 11.3 TH/MM3 (4.0-11.0)
[2017-05-03] MEDS: DOCUSATE SODIUM 50 MG/SENNA 8.6 MG TAB PO SCH ×2 (09:00→21:48)
[2017-05-03] MEDS: MULTIVITAMINS/MINERALS THERAPEUTIC TAB PO SCH (09:11)
[2017-05-03] MEDS: VANCOMYCIN 500 MG VIAL (FOR ORAL USE ONLY) PO SCH ×4 (09:12→21:48)
[2017-05-03] MEDS: SODIUM CHLORIDE 0.9% FLUSH 10 ML FLUSH IV FLUSH SCH ×2 (09:13→21:49)
[2017-05-03] MEDS: FUROSEMIDE 20 MG/2 ML VIAL IV PUSH SCH ×2 (09:13→18:08)
[2017-05-03] MEDS: SODIUM CHLOR 0.9% 1000 ML INJ 1,000 ML IV SCH ×2 (10:00→21:49)
[2017-05-03] MEDS ORDERED: SODIUM CHLOR 0.9% 250 ML INJ 250 ML IV ONE (10:00)
--- NOTE | 2017-05-03 10:08 | PD.ONC.PN ---
Subjective Subjective Remarks Afebrile overnight. Patient resting in room eating breakfast. She noticed that her urine from her left nephrostomy tube was red. Objective Data Date Time Temp Pulse Resp B/P (MAP) Pulse Ox O2 Delivery O2 Flow Rate FiO2 05/03/17 05:20 98.0 100 16 100/63 (75) 98 05/03/17 00:26 97.9 97 16 104/62 (76) 96 05/02/17 20:12 110 05/02/17 19:30 98.2 111 18 109/70 (83) 97 05/02/17 17:57 116 18 121/72 (88) 96 05/02/17 17:02 98.7 122 18 119/79 (92) 96 05/02/17 15:48 99.5 133 18 127/77 (94) 95 05/02/17 15:15 98.9 136 18 108/70 (83) 96 05/02/17 11:39 98.7 130 18 110/73 (85) 98 05/03/17 05/03/17 05/03/17 07:00 15:00 23:00 Output Total 575 ml Balance -575 ml Result Diagram: 05/03/17 0530 05/03/17 0530 Laboratory Results Laboratory Tests Test 05/02/17 15:50 05/03/17 05:30 Lactate Dehydrogenase 1738 U/L Carcinoembryonic Antigen 824.3 NG/ML CA 15-3 Antigen 32.1 U/ML CA 19-9 Antigen 45.6 U/ML CA 125 Antigen 202.9 U/ML White Blood Count 11.3 TH/MM3 Red Blood Count 3.01 MIL/MM3 Hemoglobin 8.3 GM/DL Hematocrit 25.8 % Mean Corpuscular Volume 85.9 FL Mean Corpuscular Hemoglobin 27.7 PG Mean Corpuscular Hemoglobin Concent 32.3 % Red Cell Distribution Width 17.3 % Platelet Count 395 TH/MM3 Mean Platelet Volume 8.4 FL Neutrophils (%) (Auto) 91.8 % Lymphocytes (%) (Auto) 3.7 % Monocytes (%) (Auto) 4.1 % Eosinophils (%) (Auto) 0.0 % Basophils (%) (Auto) 0.4 % Neutrophils # (Auto) 10.4 TH/MM3 Lymphocytes # (Auto) 0.4 TH/MM3 Monocytes # (Auto) 0.5 TH/MM3 Eosinophils # (Auto) 0.0 TH/MM3 Basophils # (Auto) 0.0 TH/MM3 CBC Comment DIFF FINAL Differential Comment Prothrombin Time 17.6 SEC Prothromb Time International Ratio 1.7 RATIO Blood Urea Nitrogen 44 MG/DL Creatinine 1.19 MG/DL Random Glucose 144 MG/DL Total Protein 6.6 GM/DL Albumin 1.3 GM/DL Calcium Level 8.9 MG/DL Alkaline Phosphatase 220 U/L Aspartate Amino Transf (AST/SGOT) 49 U/L Alanine Aminotransferase (ALT/SGPT) 28 U/L Total Bilirubin 0.3 MG/DL Sodium Level 134 MEQ/L Potassium Level 5.0 MEQ/L Chloride Level 100 MEQ/L Carbon Dioxide Level 23.3 MEQ/L Anion Gap 11 MEQ/L Estimat Glomerular Filtration Rate 58 ML/MIN Administered Medications Medications (Trade) Dose Ordered Sig/Erendira Route PRN Reason Start Time Stop Time Status Last Admin Dose Admin Sodium Chloride (NS Flush) 2 ml UNSCH PRN IV FLUSH FLUSH AFTER USING IV ACCESS 04/25/17 18:15 04/26/17 07:40 Sodium Chloride (NS Flush) 2 ml BID IV FLUSH 04/25/17 21:00 05/03/17 09:13 Senna/Docusate Sodium (Julieta-Colace) 1 tab BID PO 04/26/17 09:00 05/02/17 20:38 Miscellaneous Information 1 Q3D T-DERMAL 04/29/17 09:00 04/29/17 08:54 Vancomycin HCl (VANCOMYCIN for oral use only) 125 mg QID PO 04/26/17 09:00 05/03/17 09:12 Hydromorphone HCl (Dilaudid Pf Inj) 2 mg Q2HR PRN IV PUSH pain >5 04/27/17 15:00 05/03/17 05:24 Ceftriaxone Sodium 1000 mg/ Sodium Chloride 100 ml @ 200 mls/hr Q24H IV 04/28/17 17:00 05/02/17 19:29 Furosemide (Lasix Inj) 20 mg BID@09,18 IV PUSH 04/30/17 18:00 05/03/17 09:13 Morphine Sulfate (Oramorph Sr) 60 mg Q8H PO 05/01/17 18:00 05/03/17 09:12 Multivitamins/ Minerals Therapeutic (Theragran M Tab) 1 tab DAILY PO 05/02/17 09:00 05/03/17 09:11 Objective Remarks GENERAL: Middle aged female upright in chair next to bed, eating breakfast. SKIN: Warm and dry. HEAD: Normocephalic. EYES: No injection or drainage. NECK: Supple, trachea midline. CARDIOVASCULAR: Regular rate and rhythm RESPIRATORY: Breath sounds equal bilaterally. No accessory muscle use. : nephrostomy tube draining red urine. suprapubic catheter draining red urine. GASTROINTESTINAL: Abdomen soft, non-tender, nondistended. EXTREMITIES: No cyanosis NEUROLOGICAL: awake and alert, normal speech. moving all extremities. Assessment/Plan Problem List: (1) Metastatic disease ICD Codes: C79.9 - Secondary malignant neoplasm of unspecified site Plan: 05/02: start chemotherapy with Carboplatin, Gemcitabine, Avastin. 05/03: + hematuria. start IVF --history of stage IV adenocarcinoma of unknown primary. --thought to be possibly primary neoplasm of upper digestive origin, such has cholangio, pancreatic or gastric. (2) Normocytic anemia ICD Codes: D64.9 - Anemia, unspecified Plan: --transfuse as needed. (3) Cancer associated pain ICD Codes: G89.3 - Neoplasm related pain (acute) (chronic) Status: Acute Plan: --pain improved on current regimen --PET scan shows diffuse disease in lungs, abdomen and skeleton. --currently on ORAMORPH 60mg PO q 8+ Dilaudid 2mg IV q 2 hours (4) DVT (deep venous thrombosis) ICD Codes: I82.409 - Acute embolism and thrombosis of unspecified deep veins of unspecified lower extremity Status: Chronic Plan: --on coumadin (5) C. difficile diarrhea ICD Codes: A04.72 - Enterocolitis due to Clostridium difficile, not specified as recurrent Plan: --on PO Vanco (6) UTI (urinary tract infection) ICD Codes: N39.0 - Urinary tract infection, site not specified Plan: +pseudomonas. on Cefepime. Assessment 51y/o female with stage IV adenocarcinoma, with liver and lung metastasis with unknown primary admitted with intractable pain mostly in lower spine. --was residing in [facility] and according to the patient she received radiation and chemotherapy. Subsequently she moved to [place] and [place]. --recently had DVT in her left lower extremity. was in [place] at that time. has been on anticoagulation. PET scan-->diffuse disease involving her lung, abdomen and bones. history of cervical cancer in 2005 treated with chemotherapy and radiation treatments. Bilateral lower extremity DVT Severe peripheral neuropathy. Plan 1. start IVF. obtain repeat urinalysis 2. start Cefepime for + pseudomonas growing in urine culture from 04/27 3. give 1 unit pRBC Attending Statement The exam, history, and the medical decision-making described in the above note were completed with the assistance of the mid-level provider. I reviewed and agree with the findings presented. I attest that I had a [id number] encounter with the patient on the same day, and personally performed and documented my assessment and findings in the medical record. hematuria from left nephrostomy tube has pseudomonas UTI if hematuria persists then will have to discontinue Coumadin and start heparin Drop in Hb today--transfuse pRBC pain under control d/w rn o/n events reviewed Problem Qualifiers (1) DVT (deep venous thrombosis): Debra Newell May 03, 2017 10:08 Coleman Hester MD May 04, 2017 00:18
--- NOTE | 2017-05-03 10:48 | HHI.PR ---
Subjective Remarks Follow-up metastasis disease and pain/anemia of chronic disease/DHEERAJ 04/28/17-patient seen and examined, complains of mild low back pain. Consistently tachycardia. Positive for hematuria. Low-grade fever yesterday at 7 PM with Tmax 100 however currently afebrile 04/29/17-patient seen and examined, patient still with low back pain. by the bedside and states he was not aware of patient's current terminal diagnosis. H&H improved posttransfusion 04/30/17-patient seen and examined, still spiking fever. States she has increased appetite today. by the bedside 05/01/17-patient seen and examined, currently afebrile. States she is having now constipation 2 days. Good appetite this morning. States everything is in the hands of God 05/02/17-patient seen and examined, reports pain control now with increase by mouth med. Plan for chemotherapy today 05/03/17-patient seen and examined, complained of hematuria in the left nephrostomy. Urine culture positive for Pseudomonas. Patient afebrile. Objective Vitals Vital Signs Date Time Temp Pulse Resp B/P (MAP) Pulse Ox O2 Delivery O2 Flow Rate FiO2 05/03/17 05:20 98.0 100 16 100/63 (75) 98 05/03/17 00:26 97.9 97 16 104/62 (76) 96 05/02/17 20:12 110 05/02/17 19:30 98.2 111 18 109/70 (83) 97 05/02/17 17:57 116 18 121/72 (88) 96 05/02/17 17:02 98.7 122 18 119/79 (92) 96 05/02/17 15:48 99.5 133 18 127/77 (94) 95 05/02/17 15:15 98.9 136 18 108/70 (83) 96 05/02/17 11:39 98.7 130 18 110/73 (85) 98 I/O 05/02/17 05/02/17 05/02/17 05/03/17 05/03/17 05/03/17 07:00 15:00 23:00 07:00 15:00 23:00 Intake Total 640 ml 2573.5 ml Output Total 500 ml 300 ml 750 ml 575 ml Balance 140 ml -300 ml 1823.5 ml -575 ml Intake Oral 240 ml 1440 ml IV Total 1133.5 ml Packed Cells 400 ml Output Urine Total 250 ml 350 ml 200 ml Drainage Total 250 ml 300 ml 400 ml 375 ml Result Diagram: 05/03/1752905/03/17529 Objective Remarks GENERAL: NAD SKIN: Warm and dry. HEAD: Normocephalic. EYES: No scleral icterus. No injection or drainage. NECK: Supple, trachea midline. No JVD or lymphadenopathy. CARDIOVASCULAR: Regular rate and rhythm without murmurs, gallops, or rubs. RESPIRATORY: Breath sounds equal bilaterally. No accessory muscle use. GASTROINTESTINAL: Abdomen soft, non-tender, nondistended. MUSCULOSKELETAL: No cyanosis, or edema. BACK: Nontender without obvious deformity. No CVA tenderness. A/P Problem List: (1) Cancer associated pain ICD Code: G89.3 - Neoplasm related pain (acute) (chronic) Status: Acute (2) Protein calorie malnutrition ICD Code: E46 - Unspecified protein-calorie malnutrition (3) Diarrhea ICD Code: R19.7 - Diarrhea, unspecified (4) Metastatic disease ICD Code: C79.9 - Secondary malignant neoplasm of unspecified site (5) C. difficile diarrhea ICD Code: A04.72 - Enterocolitis due to Clostridium difficile, not specified as recurrent Assessment and Plan 51-year-old female with Metastatic disease History of stage IV adenocarcinoma of unknown primary. Management per oncology had chemotherapy yesterday 05/02/17 Normocytic anemia Transfused 1 unit packed red blood cell and monitor H&H Iron deficiency anemia Consider transfusion of Venofer Cancer associated pain Intractable pain in lower lumbar distribution in patient with a history of diffusely metastatic adenocarcinoma. --PET scan shows diffuse disease in lungs, abdomen and skeleton. --MRI lumbar spine pending --Continue ORAMORPH 60mg PO q 8+ Dilaudid 2mg IV q 2 hours deep venous thrombosis Continue with Coumadin and monitor INR C. difficile diarrhea-improving Continue with by mouth Vanco ARF s/p placement of Lazcano catheter by Urology Monitor Bun/Cr UTI-Pseudomonas positive culture Started on cefepime Repeat UA Hematuria in left nephrostomy tube IV fluid hydration Trey Elkins MD May 03, 2017 10:48
[2017-05-03] MEDS: CEFEPIME INJ 1,000 MG in SODIUM CHLORIDE 0.9% INJ 100 ML IV SCH (11:11)
[2017-05-03] MEDS: ACETAMINOPHEN 325 MG TAB PO PRN (11:34)
[2017-05-03] MEDS: diphenhydrAMINE HCL 25 MG CAP PO PRN (11:35)
--- NOTE | 2017-05-03 14:13 | HHI.FF ---
Face to Face Verification Diagnosis: (1) Suprapubic catheter (2) Metastatic disease (3) DVT (deep venous thrombosis) (4) Normocytic anemia (5) Urinary retention Home Health Nursing Order: Medical education Wound care and dressing changes Nursing assessment with vital signs Instructions: nephrostomy tube care daily suprapubic catheter care daily I have seen patient Yandy Dubon on 05/03/17. My clinical findings support the need for the requested home health care services because: Ltd mobility - disease progression Deconditioned w/ increased weakness I certify that my clinical findings support that this patient is homebound because: Unsteady gait/balance Debra Newell May 03, 2017 14:13 Coleman Hester MD May 09, 2017 14:14
[2017-05-03 14:46] LABS: AMORPHOUS SEDIMENT, URINE RARE; BILIRUBIN, URINE NEG (NEG); BLOOD, URINE LARGE (NEG); GLUCOSE,URINE NEG (NEG); KETONE, URINE NEG (NEG); MUCUS URINE FEW /lpf (OCC); NITRITE,URINE NEG (NEG); PH, URINE 5.5 (5.0-8.5); URINE LEUKOCYTE ESTERASE TRACE (NEG)
[2017-05-03 14:48] LABS: BACTERIA, URINE FEW /hpf; URINE COLOR LIGHT-RED (YELLW/STRAW)
[2017-05-03] MEDS ORDERED: WARFARIN SOD 5 MG TAB PO SCH (16:00)
--- NOTE | 2017-05-03 17:38 | HHI.NPPN ---
Subjective General Problems: Anemia, Edema Renal Failure: Chronic, Acute, Stage III History of Present Illness 51-year-old female with a past medical history of cervical cancer diagnosed in 2005m recurrence with stage IV metastatic adenocarcinoma of unknown primary etiology, history of peripheral neuropathy, chronic back pain who came to the hospital with complaint of increased swelling of the legs and back pain. I was called to see the patient because of elevated BUN, creatinine and swelling of the legs. The patient has creatinine in the range of 1.2 to 1.5 most of the time in the past. Additional Remarks Patient is alert, doing better, not in distress. Review of Systems General Constitutional: Fatigue Cardiovascular Cardiac: Edema, SAUCEDA Gastrointestinal Gastrointestinal: Abdominal Pain Objective Data Data 05/03/17 05/04/17 19:00 07:00 Intake Total 400 ml Balance 400 ml Packed Cells 400 ml Vital Signs Date Time Temp Pulse Resp B/P (MAP) Pulse Ox O2 Delivery O2 Flow Rate FiO2 05/03/17 15:35 97.5 97 18 112/71 (85) 97 05/03/17 15:35 97.5 97 18 112/71 97 05/03/17 14:00 98.1 97 20 120/86 99 05/03/17 13:15 97.4 98 20 117/68 99 05/03/17 12:31 97.4 98 20 117/68 (84) 99 05/03/17 05:20 98.0 100 16 100/63 (75) 98 05/03/17 00:26 97.9 97 16 104/62 (76) 96 05/02/17 20:12 110 05/02/17 19:30 98.2 111 18 109/70 (83) 97 05/02/17 17:57 116 18 121/72 (88) 96 -: 05/03/17 0530 05/03/17 0530 Microbiology 05/03/17 Urine Culture, Received Pending Physical Exam General Appearance: No Acute Distress, Comfortable Eyes Eye Exam: Pupils Equal Neck Neck Exam: Neck Supple Pulmonary Resp Exam: Breath Sounds Equal, No Distress, Rhonchi, Decreased Bases Cardiology CV Exam: Regular, Normal Sinus Rhythm Gastrointestinal/Abdomen GI Exam: Soft, Non-Tender, Bowel Sounds Present, Distended Extremeties Extremities Exam: Moderate Edema, Pitting Edema, Dependent Edema Neurologic Neuro Exam: Alert, Awake, Oriented Psychiatric Psych Exam: Appropriate Responses Assessment/Plan Assessment Summary: YADI/Acute Renal Failure, Fluid/Volume Overload, CKD Stage III Problem List: (1) Anemia ICD Codes: D64.9 - Anemia, unspecified Status: Chronic (2) UTI (urinary tract infection) ICD Codes: N39.0 - Urinary tract infection, site not specified (3) Low back pain ICD Codes: M54.5 - Low back pain Status: Chronic (4) C. difficile diarrhea ICD Codes: A04.72 - Enterocolitis due to Clostridium difficile, not specified as recurrent (5) Metastatic disease ICD Codes: C79.9 - Secondary malignant neoplasm of unspecified site (6) Urinary retention ICD Codes: R33.9 - Retention of urine, unspecified (7) CKD (chronic kidney disease), stage III ICD Codes: N18.3 - Chronic kidney disease, stage 3 (moderate) Plan Patient has Chronic kidney disease and develop YADI. Has Left Nephrostomy. Creatinine is improving, now 1.19. Now afebrile. On Vanco. PO and Ceftriaxone. Continue antibiotics. Follow the urine out put and BMP. Has low urine out put and increasing edema. On Lasix 20 mg BID. Edema is improving. Started on Chemotherapy, Continue same. Christo Gregorio MD May 03, 2017 17:38
[2017-05-04] VITALS (9 sets, daily range): BP systolic 107–131; BP diastolic 63–79; PULSE 104–129; RESP 14–18; TEMP 98.8–99.1; O2SAT 95–100
[2017-05-04] MEDS: CEFEPIME INJ 1,000 MG in SODIUM CHLORIDE 0.9% INJ 100 ML IV SCH ×2 (01:13→12:00)
[2017-05-04] MEDS: MORPHINE SULFATE 30 MG CONTROLLED RELEASE TAB PO SCH ×3 (01:13→18:13)
[2017-05-04] MEDS: HYDROmorphone HCL PF 2 MG/ML VIAL IV PUSH PRN ×5 (03:26→18:14)
[2017-05-04 06:37] LABS: AUTOMATED NEUTROPHIL # 7.6 TH/MM3 (1.8-7.7); BASOPHIL % 0.2 % (0.0-2.0); EOSINOPHIL % 0.3 % (0.0-4.0); HEMATOCRIT 28.6 % (35.0-46.0); HEMOGLOBIN 9.4 GM/DL (11.6-15.3); LYMPH % 7.3 % (9.0-44.0); LYMPHOCYTE # 0.6 TH/MM3 (1.0-4.8); MEAN CELL VOLUME 86.4 FL (80.0-100.0); MEAN CORPUSCULAR HEMOGLOBIN 28.3 PG (27.0-34.0); MEAN CORPUSCULAR HGB CONC 32.8 % (32.0-36.0); MEAN PLATELET VOLUME 7.8 FL (7.0-11.0); MONO % 2.3 % (0.0-8.0); MONOCYTE # 0.2 TH/MM3 (0-0.9); NEUT % 89.9 % (16.0-70.0); PLATELET COUNT 384 TH/MM3 (150-450); RED BLOOD COUNT 3.32 MIL/MM3 (4.00-5.30); RED CELL DISTRIBUTION WIDTH 16.9 % (11.6-17.2); WHITE BLOOD COUNT 8.5 TH/MM3 (4.0-11.0)
[2017-05-04 06:42] LABS: INTERNATIONAL NORMALIZED RATIO 2.3 RATIO; PROTHROMBIN TIME - PATIENT 23.4 SEC (9.8-11.6)
[2017-05-04 07:07] LABS: ALBUMIN 1.5 GM/DL (3.4-5.0); ALT (GPT) 24 U/L (10-53); AST (GOT) 46 U/L (15-37); BICARBONATE 23.5 MEQ/L (21.0-32.0); BLOOD UREA NITROGEN 51 MG/DL (7-18); CALCIUM 9.2 MG/DL (8.5-10.1); CHLORIDE 102 MEQ/L (98-107); CREATININE 1.11 MG/DL (0.50-1.00); GLOMERULAR FILTRATION RATE 62 ML/MIN (>89); GLUCOSE,RANDOM 100 MG/DL (74-106); SODIUM (NA) 136 MEQ/L (136-145)
[2017-05-04 07:09] LABS: ALKALINE PHOSPHATASE 208 U/L (45-117); TOTAL BILIRUBIN ADULT 0.4 MG/DL (0.2-1.0); TOTAL PROTEIN 6.8 GM/DL (6.4-8.2)
--- NOTE | 2017-05-04 08:33 | HHI.NPPN ---
Subjective General Problems: Anemia, Edema Renal Failure: Chronic, Acute, Stage III History of Present Illness 51-year-old female with a past medical history of cervical cancer diagnosed in 2006m recurrence with stage IV metastatic adenocarcinoma of unknown primary etiology, history of peripheral neuropathy, chronic back pain who came to the hospital with complaint of increased swelling of the legs and back pain. I was called to see the patient because of elevated BUN, creatinine and swelling of the legs. The patient has creatinine in the range of 1.2 to 1.5 most of the time in the past. Additional Remarks Patient is alert, doing better, not in distress. Review of Systems General Constitutional: Fatigue Cardiovascular Cardiac: Edema, SAUCEDA Gastrointestinal Gastrointestinal: Abdominal Pain Objective Data Data Vital Signs Date Time Temp Pulse Resp B/P (MAP) Pulse Ox O2 Delivery O2 Flow Rate FiO2 05/04/17 06:42 16 05/04/17 05:55 116 18 110/63 (79) 95 05/04/17 04:04 104 05/04/17 02:30 16 05/04/17 01:23 106 18 107/71 (83) 99 05/04/17 00:02 106 05/03/17 21:48 93 05/03/17 21:38 98.2 110 16 103/63 (76) 97 05/03/17 15:35 97.5 97 18 112/71 (85) 97 05/03/17 15:35 97.5 97 18 112/71 97 05/03/17 14:00 98.1 97 20 120/86 99 05/03/17 13:15 97.4 98 20 117/68 99 05/03/17 12:31 97.4 98 20 117/68 (84) 99 -: 05/04/17 0600 05/04/17 0600 Microbiology 05/03/17 Urine Culture, Received Pending Physical Exam General Appearance: No Acute Distress, Comfortable Eyes Eye Exam: Pupils Equal Neck Neck Exam: Neck Supple Pulmonary Resp Exam: Breath Sounds Equal, No Distress, Rhonchi, Decreased Bases Cardiology CV Exam: Regular, Normal Sinus Rhythm Gastrointestinal/Abdomen GI Exam: Soft, Non-Tender, Bowel Sounds Present, Distended Extremeties Extremities Exam: Moderate Edema, Pitting Edema, Dependent Edema Neurologic Neuro Exam: Alert, Awake, Oriented Psychiatric Psych Exam: Appropriate Responses Assessment/Plan Assessment Summary: YADI/Acute Renal Failure, Fluid/Volume Overload, CKD Stage III Problem List: (1) Anemia ICD Codes: D64.9 - Anemia, unspecified Status: Chronic (2) UTI (urinary tract infection) ICD Codes: N39.0 - Urinary tract infection, site not specified (3) Low back pain ICD Codes: M54.5 - Low back pain Status: Chronic (4) C. difficile diarrhea ICD Codes: A04.72 - Enterocolitis due to Clostridium difficile, not specified as recurrent (5) Metastatic disease ICD Codes: C79.9 - Secondary malignant neoplasm of unspecified site (6) Urinary retention ICD Codes: R33.9 - Retention of urine, unspecified (7) CKD (chronic kidney disease), stage III ICD Codes: N18.3 - Chronic kidney disease, stage 3 (moderate) Plan Patient has Chronic kidney disease and develop YADI. Has Left Nephrostomy. Creatinine is improving, now 1.19. Now afebrile. On Vanco. PO and Ceftriaxone. Continue antibiotics. Follow the urine out put and BMP. Has low urine out put and increasing edema. On Lasix 20 mg BID. Edema is improving. Started on Chemotherapy, Continue same. Christo Gregorio MD May 04, 2017 08:33
--- NOTE | 2017-05-04 09:29 | PD.ONC.PN ---
Subjective Subjective Remarks Afebrile overnight. Feeling constipated. No BM in 2 days. Nurse noticed a sacral pressure ulcer last night. NO nausea or vomiting. Objective Data Date Time Temp Pulse Resp B/P (MAP) Pulse Ox O2 Delivery O2 Flow Rate FiO2 05/04/17 08:43 98.8 121 14 131/69 (89) 97 05/04/17 06:42 16 05/04/17 05:55 116 18 110/63 (79) 95 05/04/17 04:04 104 05/04/17 02:30 16 05/04/17 01:23 106 18 107/71 (83) 99 05/04/17 00:02 106 05/03/17 21:48 93 05/03/17 21:38 98.2 110 16 103/63 (76) 97 05/03/17 15:35 97.5 97 18 112/71 (85) 97 05/03/17 15:35 97.5 97 18 112/71 97 05/03/17 14:00 98.1 97 20 120/86 99 05/03/17 13:15 97.4 98 20 117/68 99 05/03/17 12:31 97.4 98 20 117/68 (84) 99 05/04/17 05/04/17 05/04/17 07:00 15:00 23:00 Output Total 900 ml Balance -900 ml Result Diagram: 05/04/17 0600 05/04/17 0600 Laboratory Results Laboratory Tests Test 05/03/17 14:00 05/04/17 06:00 Urine Color LIGHT-RED Urine Turbidity CLOUDY Urine pH 5.5 Urine Specific [place] 1.017 Urine Protein 30 mg/dL Urine Glucose (UA) NEG mg/dL Urine Ketones NEG mg/dL Urine Occult Blood LARGE Urine Nitrite NEG Urine Bilirubin NEG Urine Urobilinogen LESS THAN 2.0 MG/DL Urine Leukocyte Esterase TRACE Urine RBC /hpf Urine WBC 9 /hpf Urine Amorphous Sediment RARE Urine Bacteria FEW /hpf Urine Mucus FEW /lpf Microscopic Urinalysis Comment CULTURE INDICATED White Blood Count 8.5 TH/MM3 Red Blood Count 3.32 MIL/MM3 Hemoglobin 9.4 GM/DL Hematocrit 28.6 % Mean Corpuscular Volume 86.4 FL Mean Corpuscular Hemoglobin 28.3 PG Mean Corpuscular Hemoglobin Concent 32.8 % Red Cell Distribution Width 16.9 % Platelet Count 384 TH/MM3 Mean Platelet Volume 7.8 FL Neutrophils (%) (Auto) 89.9 % Lymphocytes (%) (Auto) 7.3 % Monocytes (%) (Auto) 2.3 % Eosinophils (%) (Auto) 0.3 % Basophils (%) (Auto) 0.2 % Neutrophils # (Auto) 7.6 TH/MM3 Lymphocytes # (Auto) 0.6 TH/MM3 Monocytes # (Auto) 0.2 TH/MM3 Eosinophils # (Auto) 0.0 TH/MM3 Basophils # (Auto) 0.0 TH/MM3 CBC Comment DIFF FINAL Differential Comment Prothrombin Time 23.4 SEC Prothromb Time International Ratio 2.3 RATIO Blood Urea Nitrogen 51 MG/DL Creatinine 1.11 MG/DL Random Glucose 100 MG/DL Total Protein 6.8 GM/DL Albumin 1.5 GM/DL Calcium Level 9.2 MG/DL Alkaline Phosphatase 208 U/L Aspartate Amino Transf (AST/SGOT) 46 U/L Alanine Aminotransferase (ALT/SGPT) 24 U/L Total Bilirubin 0.4 MG/DL Sodium Level 136 MEQ/L Potassium Level 4.5 MEQ/L Chloride Level 102 MEQ/L Carbon Dioxide Level 23.5 MEQ/L Anion Gap 11 MEQ/L Estimat Glomerular Filtration Rate 62 ML/MIN Culture Results Microbiology Date/Time Source Procedure Growth Status 05/03/17 14:00 Urine Other Urine Culture Pending Received Administered Medications Medications (Trade) Dose Ordered Sig/Erendira Route PRN Reason Start Time Stop Time Status Last Admin Dose Admin Sodium Chloride (NS Flush) 2 ml UNSCH PRN IV FLUSH FLUSH AFTER USING IV ACCESS 04/25/17 18:15 04/26/17 07:40 Sodium Chloride (NS Flush) 2 ml BID IV FLUSH 04/25/17 21:00 05/03/17 21:49 Senna/Docusate Sodium (Julieta-Colace) 1 tab BID PO 04/26/17 09:00 05/03/17 21:48 Miscellaneous Information 1 Q3D T-DERMAL 04/29/17 09:00 04/29/17 08:54 Vancomycin HCl (VANCOMYCIN for oral use only) 125 mg QID PO 04/26/17 09:00 05/03/17 21:48 Hydromorphone HCl (Dilaudid Pf Inj) 2 mg Q2HR PRN IV PUSH pain >5 04/27/17 15:00 05/04/17 05:52 Furosemide (Lasix Inj) 20 mg BID@09,18 IV PUSH 04/30/17 18:00 05/03/17 18:08 Morphine Sulfate (Oramorph Sr) 60 mg Q8H PO 05/01/17 18:00 05/04/17 01:13 Multivitamins/ Minerals Therapeutic (Theragran M Tab) 1 tab DAILY PO 05/02/17 09:00 05/03/17 09:11 Acetaminophen (Tylenol) 650 mg Q4H PRN PO SEE LABEL COMMENTS 05/03/17 10:00 05/03/17 11:34 Diphenhydramine HCl (Benadryl) 25 mg Q4H PRN PO SEE LABEL COMMENTS 05/03/17 10:00 05/03/17 11:35 Sodium Chloride 1,000 ml @ 84 mls/hr [id number] IV 05/03/17 10:00 05/04/17 09:48 05/03/17 10:00 Cefepime HCl 1000 mg/Sodium Chloride 100 ml @ 200 mls/hr Q12H IV 05/03/17 12:00 05/04/17 01:13 Objective Remarks GENERAL: Middle aged female sitting up in bed, appears uncomfortable. SKIN: Warm and dry. HEAD: Normocephalic. EYES: No injection or drainage. NECK: Supple, trachea midline. CARDIOVASCULAR: +S1/S2, tachy RESPIRATORY: Breath sounds equal bilaterally. No accessory muscle use. : left nephrostomy tube draining clear urine. suprapubic catheter with bloody urine. GASTROINTESTINAL: Abdomen soft, non-tender, nondistended. +BS EXTREMITIES: No cyanosis NEUROLOGICAL: awake and alert, normal speech. moving all extremities. Assessment/Plan Problem List: (1) Metastatic disease ICD Codes: C79.9 - Secondary malignant neoplasm of unspecified site Plan: 05/02: start chemotherapy with Carboplatin, Gemcitabine, Avastin. 05/03: + hematuria. start IVF 05/04: hematuria resolved. --history of stage IV adenocarcinoma of unknown primary. --thought to be possibly primary neoplasm of upper digestive origin, such has cholangio, pancreatic or gastric. (2) Normocytic anemia ICD Codes: D64.9 - Anemia, unspecified Plan: --transfuse as needed. (3) Cancer associated pain ICD Codes: G89.3 - Neoplasm related pain (acute) (chronic) Status: Acute Plan: --pain improved on current regimen --PET scan shows diffuse disease in lungs, abdomen and skeleton. --currently on ORAMORPH 60mg PO q 8+ Dilaudid 2mg IV q 2 hours (4) DVT (deep venous thrombosis) ICD Codes: I82.409 - Acute embolism and thrombosis of unspecified deep veins of unspecified lower extremity Status: Chronic Plan: --on coumadin (5) C. difficile diarrhea ICD Codes: A04.72 - Enterocolitis due to Clostridium difficile, not specified as recurrent Plan: --on PO Vanco (6) UTI (urinary tract infection) ICD Codes: N39.0 - Urinary tract infection, site not specified Plan: +pseudomonas. on Cefepime. (7) Sacral decubitus ulcer ICD Codes: L89.159 - Pressure ulcer of sacral region, unspecified stage Plan: --consult wound care Assessment 51y/o female with stage IV adenocarcinoma, with liver and lung metastasis with unknown primary admitted with intractable pain mostly in lower spine. --was residing in [facility] and according to the patient she received radiation and chemotherapy. Subsequently she moved to [place] and [place]. --recently had DVT in her left lower extremity. was in [place] at that time. has been on anticoagulation. PET scan-->diffuse disease involving her lung, abdomen and bones. history of cervical cancer in 2005 treated with chemotherapy and radiation treatments. Bilateral lower extremity DVT Severe peripheral neuropathy. Plan 1. continue antibiotics 2. continue coumadin 3. lactulose for constipation 4. consult wound care for sacral ulcer. Attending Statement The exam, history, and the medical decision-making described in the above note were completed with the assistance of the mid-level provider. I reviewed and agree with the findings presented. I attest that I had a [id number] encounter with the patient on the same day, and personally performed and documented my assessment and findings in the medical record. Stage IV adenocarcinoma of unknown primary-- possibly upper GI- supportive care over the weekend focus on nutrition and PT hematuria resolved sacral wound care d/w rn o/n events reviewed Problem Qualifiers (1) DVT (deep venous thrombosis): (2) Sacral decubitus ulcer: Qualified Codes: L89.159 - Pressure ulcer of sacral region, unspecified stage Debra Newell May 04, 2017 09:29 Coleman Hester MD May 05, 2017 01:43
[2017-05-04] MEDS: VANCOMYCIN 500 MG VIAL (FOR ORAL USE ONLY) PO SCH ×4 (09:32→21:35)
[2017-05-04] MEDS: FUROSEMIDE 20 MG/2 ML VIAL IV PUSH SCH ×2 (09:33→18:13)
[2017-05-04] MEDS: DOCUSATE SODIUM 50 MG/SENNA 8.6 MG TAB PO SCH ×2 (09:33→21:34)
[2017-05-04] MEDS: MULTIVITAMINS/MINERALS THERAPEUTIC TAB PO SCH (09:33)
[2017-05-04] MEDS: LACTULOSE SYRUP 20 GM/30 ML CUP PO SCH ×5 (10:05→21:35)
--- NOTE | 2017-05-04 10:36 | HHI.PR ---
Subjective Remarks Follow-up metastasis disease and pain/anemia of chronic disease/DHEERAJ 04/28/17-patient seen and examined, complains of mild low back pain. Consistently tachycardia. Positive for hematuria. Low-grade fever yesterday at 7 PM with Tmax 100 however currently afebrile 04/29/17-patient seen and examined, patient still with low back pain. by the bedside and states he was not aware of patient's current terminal diagnosis. H&H improved posttransfusion 04/30/17-patient seen and examined, still spiking fever. States she has increased appetite today. by the bedside 05/01/17-patient seen and examined, currently afebrile. States she is having now constipation 2 days. Good appetite this morning. States everything is in the hands of God 05/02/17-patient seen and examined, reports pain control now with increase by mouth med. Plan for chemotherapy today 05/03/17-patient seen and examined, complained of hematuria in the left nephrostomy. Urine culture positive for Pseudomonas. Patient afebrile. 05/04/17-patient seen and examined, no BM 2 days. Now with sacral decubitus ulcer. Afebrile. Hematuria improving in nephrostomy tube Objective Vitals Vital Signs Date Time Temp Pulse Resp B/P (MAP) Pulse Ox O2 Delivery O2 Flow Rate FiO2 05/04/17 08:43 98.8 121 14 131/69 (89) 97 05/04/17 06:42 16 05/04/17 05:55 116 18 110/63 (79) 95 05/04/17 04:04 104 05/04/17 02:30 16 05/04/17 01:23 106 18 107/71 (83) 99 05/04/17 00:02 106 05/03/17 21:48 93 05/03/17 21:38 98.2 110 16 103/63 (76) 97 05/03/17 15:35 97.5 97 18 112/71 (85) 97 05/03/17 15:35 97.5 97 18 112/71 97 05/03/17 14:00 98.1 97 20 120/86 99 05/03/17 13:15 97.4 98 20 117/68 99 05/03/17 12:31 97.4 98 20 117/68 (84) 99 I/O 05/03/17 05/03/17 05/03/17 05/04/17 05/04/17 05/04/17 07:00 15:00 23:00 07:00 15:00 23:00 Intake Total 880 ml Output Total 575 ml 200 ml 900 ml Balance -575 ml 680 ml -900 ml Intake Oral 480 ml Packed Cells 400 ml Output Urine Total 200 ml 400 ml Drainage Total 375 ml 200 ml 500 ml Result Diagram: 05/04/17 0600 05/04/17 0600 Imaging Last Impressions Tube Placement X-Ray 04/27/17 0000 Signed Impressions: Service Date/Time: Thursday, April 27, 2017 17:54 - CONCLUSION: Uncomplicated suprapubic catheter placement. Boubacar Vicente MD Sacrum/Coccyx MRI 04/27/17 0000 Signed Impressions: Service Date/Time: Thursday, April 27, 2017 22:00 - CONCLUSION: Marrow signal changes within the bony elements of the sacrum and ramo potentially related to previous radiation. Soft tissue elements significantly obscured by streak associated with embolization coils and other foreign components in the pelvis. David Miranda MD Lumbar Spine MRI 04/27/17 0000 Signed Impressions: Service Date/Time: Thursday, April 27, 2017 22:00 - CONCLUSION: No acute findings in the lumbar spine. David Miranda MD Chest X-Ray 04/25/17 1310 Signed Impressions: Service Date/Time: Tuesday, April 25, 2017 13:33 - CONCLUSION: 1. Multiple bilateral pulmonary nodules concerning for metastatic disease. 2. Interval removal of the left subclavian [id number] catheter and placement of a right subclavian [id number]-p-[id number] catheter. No pneumothorax. 3. Heart size is normal. No superimposed acute infiltrate. Kwabena Palmer MD Lower Extremity Ultrasound 04/25/17 0000 Signed Impressions: Service Date/Time: Tuesday, April 25, 2017 13:34 - CONCLUSION: 1. Enlarged bilateral inguinal lymph nodes. The largest on the right measures 5 cm in diameter. Nodes are suspicious. 2. No DVT. Kwabena Palmer MD Objective Remarks GENERAL: NAD SKIN: Warm and dry. HEAD: Normocephalic. EYES: No scleral icterus. No injection or drainage. NECK: Supple, trachea midline. No JVD or lymphadenopathy. CARDIOVASCULAR: Regular rate and rhythm without murmurs, gallops, or rubs. RESPIRATORY: Breath sounds equal bilaterally. No accessory muscle use. GASTROINTESTINAL: Abdomen soft, non-tender, nondistended. MUSCULOSKELETAL: No cyanosis, or edema. BACK: Nontender without obvious deformity. No CVA tenderness. A/P Problem List: (1) Cancer associated pain ICD Code: G89.3 - Neoplasm related pain (acute) (chronic) Status: Acute (2) Protein calorie malnutrition ICD Code: E46 - Unspecified protein-calorie malnutrition (3) Diarrhea ICD Code: R19.7 - Diarrhea, unspecified (4) Metastatic disease ICD Code: C79.9 - Secondary malignant neoplasm of unspecified site (5) C. difficile diarrhea ICD Code: A04.72 - Enterocolitis due to Clostridium difficile, not specified as recurrent Assessment and Plan 51-year-old female with Metastatic disease History of stage IV adenocarcinoma of unknown primary. Management per oncology had chemotherapy yesterday 05/02/17 Normocytic anemia Transfused 1 unit packed red blood cell and monitor H&H Iron deficiency anemia Consider transfusion of Venofer Cancer associated pain Intractable pain in lower lumbar distribution in patient with a history of diffusely metastatic adenocarcinoma. --PET scan shows diffuse disease in lungs, abdomen and skeleton. --MRI lumbar spine pending --Continue ORAMORPH 60mg PO q 8+ Dilaudid 2mg IV q 2 hours deep venous thrombosis Continue with Coumadin and monitor INR C. difficile diarrhea-improving Continue with by mouth Vanco ARF s/p placement of Lazcano catheter by Urology Monitor Bun/Cr UTI-Pseudomonas positive culture Currently on cefepime Sacral decubitus ulcer Wound care consult pending Constipation Lactulose when necessary Hematuria in left nephrostomy tube Improving Trey Elkins MD May 04, 2017 10:36
--- NOTE | 2017-05-04 13:15 | PD.WCN.NOT ---
Wound Consult Description: Consult placed for sacrum pressure ulcer per ANDREINA Newell Communicated with: Patient DOMINGO Robertson Call placed to call center for ANDREINA Newell for dressing orders Recommendation: Dressing changes to sacral wound when hydrocolloid becomes soiled or dislodged. Cleanse sacral wound with Normal Saline and gauze. Skin prep periwound with Cavilon spray and allow to dry. Apply sacral hydrocolloid dressing and leave in place for 3-5 days. Additional Information: Patient seen on [facility] for sacral wound. Patient was leaning over her walker when entering room and attempting to get back to bed independently. Relocation Director and DOMINGO Robertson assisted patient in isacc care and wound was visualized after removing the foam dressing that was lifting from buttocks.Wound on sacrum and in the gluteal cleft presents with ~80% dried yellow adipose tissue and ~20% pink vascular tissue measuring 4cm x 2cm x <0.1cm. Wound was without drainage and without odor. Wound was cleansed with NS and gauze. Patient is transferring from bed to bed side commode independently and when asked her opinion about a cream vs a dressing she states that cream would just rub off with her sliding in bed. Periwound is unremarkable and was skin prepped using Cavilon barrier film and allowed to dry before placing a sacral hydrocolloid dressing that may remain in place for 3-5 days and PRN for soiling. Wound is over a bony prominence, has a shallow, dry wound bed with jagged and sharp wound margins indicating a mixed etiology of pressure and moisture. [place] Mayer [facility] May 04, 2017 13:15
[2017-05-04] MEDS: WARFARIN SOD 4 MG TAB PO SCH (15:46)
[2017-05-04] MEDS: SODIUM CHLORIDE 0.9% FLUSH 10 ML FLUSH IV FLUSH SCH ×2 (18:15→21:00)
[2017-05-05] VITALS (7 sets, daily range): BP systolic 109–149; BP diastolic 68–79; PULSE 110–130; RESP 16–24; TEMP 98–100.6; O2SAT 97–100
[2017-05-05] MEDS: CEFEPIME INJ 1,000 MG in SODIUM CHLORIDE 0.9% INJ 100 ML IV SCH ×3 (01:30→23:00)
[2017-05-05] MEDS: MORPHINE SULFATE 30 MG CONTROLLED RELEASE TAB PO SCH ×3 (02:00→18:12)
[2017-05-05] MEDS: HYDROmorphone HCL PF 2 MG/ML VIAL IV PUSH PRN ×4 (05:48→22:58)
[2017-05-05 08:17] LABS: AUTOMATED NEUTROPHIL # 8.5 TH/MM3 (1.8-7.7); BASOPHIL % 0.4 % (0.0-2.0); EOSINOPHIL % 0.5 % (0.0-4.0); HEMATOCRIT 27.6 % (35.0-46.0); HEMOGLOBIN 9.1 GM/DL (11.6-15.3); LYMPH % 6.7 % (9.0-44.0); LYMPHOCYTE # 0.6 TH/MM3 (1.0-4.8); MEAN CORPUSCULAR HEMOGLOBIN 28.4 PG (27.0-34.0); MEAN PLATELET VOLUME 8.1 FL (7.0-11.0); MONO % 0.7 % (0.0-8.0); MONOCYTE # 0.1 TH/MM3 (0-0.9); NEUT % 91.7 % (16.0-70.0); PLATELET COUNT 349 TH/MM3 (150-450); RED BLOOD COUNT 3.21 MIL/MM3 (4.00-5.30); RED CELL DISTRIBUTION WIDTH 17.5 % (11.6-17.2); WHITE BLOOD COUNT 9.3 TH/MM3 (4.0-11.0)
[2017-05-05 08:22] LABS: INTERNATIONAL NORMALIZED RATIO 1.8 RATIO; PROTHROMBIN TIME - PATIENT 17.9 SEC (9.8-11.6)
--- NOTE | 2017-05-05 08:31 | HHI.NPPN ---
Subjective General Problems: Anemia, Edema Renal Failure: Chronic, Acute, Stage III Additional Remarks Renal function has improved. Acute on CKD. Review of Systems General Constitutional: Fatigue Cardiovascular Cardiac: Edema, SAUCEDA Gastrointestinal Gastrointestinal: Abdominal Pain Objective Data Data Vital Signs Date Time Temp Pulse Resp B/P (MAP) Pulse Ox O2 Delivery O2 Flow Rate FiO2 05/05/17 06:52 16 05/04/17 21:26 99.0 129 18 112/66 (81) 97 05/04/17 20:01 122 05/04/17 18:30 99.0 124 14 128/68 (88) 100 05/04/17 13:06 99.1 125 16 126/79 (95) 99 05/04/17 08:43 98.8 121 14 131/69 (89) 97 -: 05/05/17 0600 05/04/17 0600 Physical Exam General Appearance: No Acute Distress, Comfortable Eyes Eye Exam: Pupils Equal Neck Neck Exam: Neck Supple Pulmonary Resp Exam: Breath Sounds Equal, No Distress, Rhonchi, Decreased Bases Cardiology CV Exam: Regular, Normal Sinus Rhythm Gastrointestinal/Abdomen GI Exam: Soft, Non-Tender, Bowel Sounds Present, Distended Extremeties Extremities Exam: Moderate Edema, Pitting Edema, Dependent Edema Neurologic Neuro Exam: Alert, Awake, Oriented Psychiatric Psych Exam: Appropriate Responses Assessment/Plan Assessment Summary: YADI/Acute Renal Failure, Fluid/Volume Overload, CKD Stage III Problem List: (1) Anemia ICD Codes: D64.9 - Anemia, unspecified Status: Chronic (2) UTI (urinary tract infection) ICD Codes: N39.0 - Urinary tract infection, site not specified (3) Low back pain ICD Codes: M54.5 - Low back pain Status: Chronic (4) C. difficile diarrhea ICD Codes: A04.72 - Enterocolitis due to Clostridium difficile, not specified as recurrent (5) Metastatic disease ICD Codes: C79.9 - Secondary malignant neoplasm of unspecified site (6) Urinary retention ICD Codes: R33.9 - Retention of urine, unspecified (7) CKD (chronic kidney disease), stage III ICD Codes: N18.3 - Chronic kidney disease, stage 3 (moderate) Plan Patient has Chronic kidney disease and develop YADI. Has Left Nephrostomy. Renal function has improved. Avoid nephrotoxins. I will sign off at this time. Chepe Martínez MD May 05, 2017 08:31
[2017-05-05 08:50] LABS: ALBUMIN 1.5 GM/DL (3.4-5.0); ALT (GPT) 25 U/L (10-53); AST (GOT) 54 U/L (15-37); BICARBONATE 24.6 MEQ/L (21.0-32.0); BLOOD UREA NITROGEN 53 MG/DL (7-18); CALCIUM 9.4 MG/DL (8.5-10.1); CHLORIDE 103 MEQ/L (98-107); CREATININE 1.13 MG/DL (0.50-1.00); GLOMERULAR FILTRATION RATE 61 ML/MIN (>89); GLUCOSE,RANDOM 90 MG/DL (74-106); SODIUM (NA) 139 MEQ/L (136-145)
[2017-05-05 08:52] LABS: ALKALINE PHOSPHATASE 230 U/L (45-117); TOTAL BILIRUBIN ADULT 0.5 MG/DL (0.2-1.0); TOTAL PROTEIN 6.6 GM/DL (6.4-8.2)
[2017-05-05] MEDS: LACTULOSE SYRUP 20 GM/30 ML CUP PO SCH ×4 (09:00→20:10)
[2017-05-05] MEDS: REMOVE OLD DURAGESIC (FENTANYL) PATCH T-DERMAL SCH (09:00)
[2017-05-05] MEDS: DOCUSATE SODIUM 50 MG/SENNA 8.6 MG TAB PO SCH ×2 (09:00→20:11)
--- NOTE | 2017-05-05 09:19 | PD.ONC.PN ---
Subjective Subjective Remarks Afebrile Pt reports she had a horrible night Took a long time for her to get something for pain Finally having multiple bowel movements after being constipated Objective Data Date Time Temp Pulse Resp B/P (MAP) Pulse Ox O2 Delivery O2 Flow Rate FiO2 05/05/17 06:52 16 05/04/17 21:26 99.0 129 18 112/66 (81) 97 05/04/17 20:01 122 05/04/17 18:30 99.0 124 14 128/68 (88) 100 05/04/17 13:06 99.1 125 16 126/79 (95) 99 05/05/17 05/05/17 05/05/17 07:00 15:00 23:00 Output Total 400 ml Balance -400 ml Result Diagram: 05/05/17 0600 05/05/17 0600 Laboratory Results Laboratory Tests Test 05/05/17 06:00 White Blood Count 9.3 TH/MM3 Red Blood Count 3.21 MIL/MM3 Hemoglobin 9.1 GM/DL Hematocrit 27.6 % Mean Corpuscular Volume 86.0 FL Mean Corpuscular Hemoglobin 28.4 PG Mean Corpuscular Hemoglobin Concent 33.0 % Red Cell Distribution Width 17.5 % Platelet Count 349 TH/MM3 Mean Platelet Volume 8.1 FL Neutrophils (%) (Auto) 91.7 % Lymphocytes (%) (Auto) 6.7 % Monocytes (%) (Auto) 0.7 % Eosinophils (%) (Auto) 0.5 % Basophils (%) (Auto) 0.4 % Neutrophils # (Auto) 8.5 TH/MM3 Lymphocytes # (Auto) 0.6 TH/MM3 Monocytes # (Auto) 0.1 TH/MM3 Eosinophils # (Auto) 0.0 TH/MM3 Basophils # (Auto) 0.0 TH/MM3 CBC Comment DIFF FINAL Differential Comment Prothrombin Time 17.9 SEC Prothromb Time International Ratio 1.8 RATIO Blood Urea Nitrogen 53 MG/DL Creatinine 1.13 MG/DL Random Glucose 90 MG/DL Total Protein 6.6 GM/DL Albumin 1.5 GM/DL Calcium Level 9.4 MG/DL Alkaline Phosphatase 230 U/L Aspartate Amino Transf (AST/SGOT) 54 U/L Alanine Aminotransferase (ALT/SGPT) 25 U/L Total Bilirubin 0.5 MG/DL Sodium Level 139 MEQ/L Potassium Level 4.1 MEQ/L Chloride Level 103 MEQ/L Carbon Dioxide Level 24.6 MEQ/L Anion Gap 11 MEQ/L Estimat Glomerular Filtration Rate 61 ML/MIN Culture Results Microbiology Date/Time Source Procedure Growth Status 05/03/17 14:00 Urine Other Urine Culture - Final NO GROWTH IN 48 HOURS. Complete Administered Medications Medications (Trade) Dose Ordered Sig/Erendira Route PRN Reason Start Time Stop Time Status Last Admin Dose Admin Sodium Chloride (NS Flush) 2 ml UNSCH PRN IV FLUSH FLUSH AFTER USING IV ACCESS 04/25/17 18:15 04/26/17 07:40 Sodium Chloride (NS Flush) 2 ml BID IV FLUSH 04/25/17 21:00 05/04/17 21:00 Senna/Docusate Sodium (Julieta-Colace) 1 tab BID PO 04/26/17 09:00 05/04/17 21:34 Miscellaneous Information 1 Q3D T-DERMAL 04/29/17 09:00 04/29/17 08:54 Vancomycin HCl (VANCOMYCIN for oral use only) 125 mg QID PO 04/26/17 09:00 05/04/17 21:35 Hydromorphone HCl (Dilaudid Pf Inj) 2 mg Q2HR PRN IV PUSH pain >5 04/27/17 15:00 05/05/17 05:48 Furosemide (Lasix Inj) 20 mg BID@,18 IV PUSH 04/30/17 18:00 05/04/17 18:13 Morphine Sulfate (Oramorph Sr) 60 mg Q8H PO 05/01/17 18:00 05/04/17 18:13 Multivitamins/ Minerals Therapeutic (Theragran M Tab) 1 tab DAILY PO 05/02/17 09:00 05/04/17 09:33 Acetaminophen (Tylenol) 650 mg Q4H PRN PO SEE LABEL COMMENTS 05/03/17 10:00 05/03/17 11:34 Diphenhydramine HCl (Benadryl) 25 mg Q4H PRN PO SEE LABEL COMMENTS 05/03/17 10:00 05/03/17 11:35 Cefepime HCl 1000 mg/Sodium Chloride 100 ml @ 200 mls/hr Q12H IV 05/03/17 12:00 05/05/17 01:30 Warfarin Sodium (Coumadin) 4 mg DAILY@16 PO 05/04/17 16:00 05/04/17 15:46 Lactulose (Lactulose Liq) 30 ml QID PO 05/04/17 09:00 05/04/17 18:14 Objective Remarks GENERAL: Middle aged female sitting up in bed; tearful about overnight events. SKIN: Warm and dry. HEAD: Normocephalic. EYES: No injection or drainage. NECK: Supple, trachea midline. CARDIOVASCULAR: +S1/S2, tachy RESPIRATORY: Breath sounds equal bilaterally. No accessory muscle use. : left nephrostomy tube draining clear urine. suprapubic catheter with pink tinged urine. GASTROINTESTINAL: Abdomen soft, non-tender, nondistended. +BS EXTREMITIES: No cyanosis NEUROLOGICAL: Awake and alert, normal speech. Moving all extremities. Assessment/Plan Problem List: (1) Metastatic disease ICD Codes: C79.9 - Secondary malignant neoplasm of unspecified site Plan: 05/02: start chemotherapy with Carboplatin, Gemcitabine, Avastin. 05/03: + hematuria. start IVF 05/04: hematuria resolved. --history of stage IV adenocarcinoma of unknown primary. --thought to be possibly primary neoplasm of upper digestive origin, such has cholangio, pancreatic or gastric. (2) Normocytic anemia ICD Codes: D64.9 - Anemia, unspecified Plan: --transfuse as needed. (3) Cancer associated pain ICD Codes: G89.3 - Neoplasm related pain (acute) (chronic) Status: Acute Plan: --pain improved on current regimen --PET scan shows diffuse disease in lungs, abdomen and skeleton. --currently on ORAMORPH 60mg PO q 8+ Dilaudid 2mg IV q 2 hours (4) DVT (deep venous thrombosis) ICD Codes: I82.409 - Acute embolism and thrombosis of unspecified deep veins of unspecified lower extremity Status: Chronic Plan: --on coumadin (5) C. difficile diarrhea ICD Codes: A04.72 - Enterocolitis due to Clostridium difficile, not specified as recurrent Plan: --on PO Vanco (6) UTI (urinary tract infection) ICD Codes: N39.0 - Urinary tract infection, site not specified Plan: +pseudomonas. on Cefepime. (7) Sacral decubitus ulcer ICD Codes: L89.159 - Pressure ulcer of sacral region, unspecified stage Plan: --consult wound care Assessment 51y/o female with stage IV adenocarcinoma, with liver and lung metastasis with unknown primary admitted with intractable pain mostly in lower spine. --was residing in [facility] and according to the patient she received radiation and chemotherapy. Subsequently she moved to [place] and [place]. --recently had DVT in her left lower extremity. was in [place] at that time. has been on anticoagulation. PET scan-->diffuse disease involving her lung, abdomen and bones. history of cervical cancer in 2005 treated with chemotherapy and radiation treatments. Bilateral lower extremity DVT Severe peripheral neuropathy. Plan 1. Continue cefepime 2. Doing well overall s/p chemo on 05/02. 3. Continue coumadin at 4mg. 4. Monitor for bleeding; Supportive care Attending Statement The exam, history, and the medical decision-making described in the above note were completed with the assistance of the mid-level provider. I reviewed and agree with the findings presented. I attest that I had a [id number] encounter with the patient on the same day, and personally performed and documented my assessment and findings in the medical record. Stage 4 adenocarcinoma of unknown primary admitted with pain s/p chemotherapy. Diarrhea /constipation improved. Problem Qualifiers (1) DVT (deep venous thrombosis): (2) Sacral decubitus ulcer: Qualified Codes: L89.159 - Pressure ulcer of sacral region, unspecified stage Emi Daniels May 05, 2017 09:19 Eleonora Martinez MD May 05, 2017 16:45
[2017-05-05] MEDS: VANCOMYCIN 500 MG VIAL (FOR ORAL USE ONLY) PO SCH ×4 (09:57→20:18)
[2017-05-05] MEDS: MULTIVITAMINS/MINERALS THERAPEUTIC TAB PO SCH (09:58)
[2017-05-05] MEDS: FUROSEMIDE 20 MG/2 ML VIAL IV PUSH SCH ×2 (09:58→18:12)
[2017-05-05] MEDS: SODIUM CHLORIDE 0.9% FLUSH 10 ML FLUSH IV FLUSH SCH ×2 (10:01→20:18)
[2017-05-05] MEDS ORDERED: SODIUM CHLORID 0.9% 500 ML INJ 500 ML IV SCH (15:15)
[2017-05-05] MEDS: WARFARIN SOD 4 MG TAB PO SCH (16:00)
[2017-05-05] MEDS: ACETAMINOPHEN 325 MG TAB PO PRN (16:44)
[2017-05-05] MEDS ORDERED: ACETAMINOPHEN 325 MG TAB PO PRN (17:45)
--- NOTE | 2017-05-05 18:06 | HHI.PR ---
Subjective Remarks 51F with multiple medical issues including metastatic adenocarcinoma, sacral decubitus, UTI, suprapubic catheter, C Diff, h/o DVT. She had a fever this afternoon. Objective Vitals Vital Signs Date Time Temp Pulse Resp B/P (MAP) Pulse Ox O2 Delivery O2 Flow Rate FiO2 05/05/17 16:54 100.6 130 20 133/74 (93) 97 05/05/17 12:26 99.4 121 18 109/68 (82) 97 05/05/17 10:04 98.7 122 24 149/72 (97) 99 05/05/17 08:00 120 05/05/17 06:52 16 05/04/17 21:26 99.0 129 18 112/66 (81) 97 05/04/17 20:01 122 05/04/17 18:30 99.0 124 14 128/68 (88) 100 I/O 05/04/17 05/04/17 05/04/17 05/05/17 05/05/17 05/05/17 07:00 15:00 23:00 07:00 15:00 23:00 Intake Total 460 ml Output Total 900 ml 250 ml 300 ml 400 ml 925 ml 325 ml Balance -900 ml -250 ml 160 ml -400 ml -925 ml -325 ml Intake Oral 360 ml IV Total 100 ml Output Urine Total 400 ml 300 ml 275 ml 125 ml Drainage Total 500 ml 250 ml 400 ml 650 ml 200 ml Bladder Scan Volume Amount 325 ml # Bowel Movements 1 4 Result Diagram: 05/05/17 0600 05/05/17 0600 Objective Remarks GENERAL: Weakened appearing female. SKIN: Warm and dry. HEAD: Normocephalic. EYES: No scleral icterus. No injection or drainage. NECK: Supple, trachea midline. No JVD or lymphadenopathy. CARDIOVASCULAR: Regular rate and rhythm without murmurs, gallops, or rubs. RESPIRATORY: Breath sounds equal bilaterally. No accessory muscle use. GASTROINTESTINAL: Abdomen soft, non-tender, nondistended. MUSCULOSKELETAL: No cyanosis, or edema. BACK: Nontender without obvious deformity. No CVA tenderness. EXTREMITIES: no edema A/P Problem List: (1) Cancer associated pain ICD Code: G89.3 - Neoplasm related pain (acute) (chronic) Status: Acute (2) Protein calorie malnutrition ICD Code: E46 - Unspecified protein-calorie malnutrition (3) Diarrhea ICD Code: R19.7 - Diarrhea, unspecified (4) Metastatic disease ICD Code: C79.9 - Secondary malignant neoplasm of unspecified site (5) C. difficile diarrhea ICD Code: A04.72 - Enterocolitis due to Clostridium difficile, not specified as recurrent Assessment and Plan Metastatic Disease Stage IV adenocarcinoma of unknown primary origin Undergoing chemotherapy while she is here Oncology following Cancer Associated Pain Ontomorph 60mg Q8 with Dilaudid 2mg Q2 MRI of lumbar spine did not find spread of cancer there PET scan from earlier shows pervasive disease New Fever Onset today, blood cultures ordered, Tylenol prn Antibiotics recently changed for new urine cultures If worsening, consider catheter, port, urine, c diff, etc. C Diff Diarrhea Improving, yesterday's diarrhea was related to stool softener Follow trend, continue PO Vancomycin Pseudomonas UTI Continue Cefepime Some associated hematuria Catheter present Sacral Ulcer Wound care consult Anemia s/p 1 unit PRBC, iron deficiency Acute Renal Failure Following BUN/Cr h/o DVT On Coumadin from home Follow INR periodically Tommie Matias MD May 05, 2017 18:06
[2017-05-06] VITALS (7 sets, daily range): BP systolic 111–150; BP diastolic 58–88; PULSE 74–124; RESP 16–24; TEMP 97.7–99.7; O2SAT 94–99
[2017-05-06] MEDS: MORPHINE SULFATE 30 MG CONTROLLED RELEASE TAB PO SCH ×3 (00:59→17:30)
[2017-05-06] MEDS: HYDROmorphone HCL PF 2 MG/ML VIAL IV PUSH PRN ×5 (05:14→20:19)
[2017-05-06 07:07] LABS: INTERNATIONAL NORMALIZED RATIO 2.1 RATIO; PROTHROMBIN TIME - PATIENT 21.4 SEC (9.8-11.6)
[2017-05-06 07:09] LABS: AUTOMATED NEUTROPHIL # 6.9 TH/MM3 (1.8-7.7); BASOPHIL % 0.3 % (0.0-2.0); EOSINOPHIL # 0.1 TH/MM3 (0-0.4); EOSINOPHIL % 0.7 % (0.0-4.0); HEMATOCRIT 28.5 % (35.0-46.0); HEMOGLOBIN 9.3 GM/DL (11.6-15.3); LYMPH % 8.4 % (9.0-44.0); LYMPHOCYTE # 0.6 TH/MM3 (1.0-4.8); MEAN CELL VOLUME 87.5 FL (80.0-100.0); MEAN CORPUSCULAR HEMOGLOBIN 28.6 PG (27.0-34.0); MEAN CORPUSCULAR HGB CONC 32.7 % (32.0-36.0); MEAN PLATELET VOLUME 8.1 FL (7.0-11.0); MONO % 0.6 % (0.0-8.0); PLATELET COUNT 363 TH/MM3 (150-450); RED BLOOD COUNT 3.26 MIL/MM3 (4.00-5.30); RED CELL DISTRIBUTION WIDTH 17.3 % (11.6-17.2); WHITE BLOOD COUNT 7.7 TH/MM3 (4.0-11.0)
[2017-05-06 07:13] LABS: ALBUMIN 1.6 GM/DL (3.4-5.0); ALT (GPT) 31 U/L (10-53); AST (GOT) 69 U/L (15-37); BICARBONATE 21.6 MEQ/L (21.0-32.0); BLOOD UREA NITROGEN 49 MG/DL (7-18); CALCIUM 9.6 MG/DL (8.5-10.1); CHLORIDE 102 MEQ/L (98-107); CREATININE 1.14 MG/DL (0.50-1.00); GLOMERULAR FILTRATION RATE 61 ML/MIN (>89); GLUCOSE,RANDOM 93 MG/DL (74-106); SODIUM (NA) 136 MEQ/L (136-145)
[2017-05-06 07:15] LABS: ALKALINE PHOSPHATASE 249 U/L (45-117); TOTAL BILIRUBIN ADULT 0.7 MG/DL (0.2-1.0); TOTAL PROTEIN 7.4 GM/DL (6.4-8.2)
[2017-05-06] MEDS: SODIUM CHLORIDE 0.9% FLUSH 10 ML FLUSH IV FLUSH SCH ×2 (09:00→20:20)
[2017-05-06] MEDS: LACTULOSE SYRUP 20 GM/30 ML CUP PO SCH ×4 (09:00→20:19)
[2017-05-06] MEDS: VANCOMYCIN 500 MG VIAL (FOR ORAL USE ONLY) PO SCH ×4 (09:01→20:19)
[2017-05-06] MEDS: MULTIVITAMINS/MINERALS THERAPEUTIC TAB PO SCH (09:02)
[2017-05-06] MEDS: DOCUSATE SODIUM 50 MG/SENNA 8.6 MG TAB PO SCH ×2 (09:02→20:19)
[2017-05-06] MEDS: FUROSEMIDE 20 MG/2 ML VIAL IV PUSH SCH ×2 (09:02→17:30)
--- NOTE | 2017-05-06 10:12 | PD.ONC.PN ---
Subjective Subjective Remarks Afebrile Feeling overall much better Feels like she needs the Dilaudid every 2 hours Objective Data Date Time Temp Pulse Resp B/P (MAP) Pulse Ox O2 Delivery O2 Flow Rate FiO2 05/06/17 08:06 98.9 102 24 117/66 (83) 98 05/06/17 05:00 98.5 110 16 124/66 (85) 95 05/05/17 23:00 98.0 110 16 123/79 (94) 100 05/05/17 20:15 119 05/05/17 20:14 98.2 116 16 117/70 (86) 99 05/05/17 16:54 100.6 130 20 133/74 (93) 97 05/05/17 12:26 99.4 121 18 109/68 (82) 97 05/06/17 05/06/17 05/06/17 07:00 15:00 23:00 Intake Total 100 ml Output Total 750 ml Balance -650 ml Result Diagram: 05/06/17 0500 05/06/17 0500 Laboratory Results Laboratory Tests Test 05/06/17 05:00 White Blood Count 7.7 TH/MM3 Red Blood Count 3.26 MIL/MM3 Hemoglobin 9.3 GM/DL Hematocrit 28.5 % Mean Corpuscular Volume 87.5 FL Mean Corpuscular Hemoglobin 28.6 PG Mean Corpuscular Hemoglobin Concent 32.7 % Red Cell Distribution Width 17.3 % Platelet Count 363 TH/MM3 Mean Platelet Volume 8.1 FL Neutrophils (%) (Auto) 90.0 % Lymphocytes (%) (Auto) 8.4 % Monocytes (%) (Auto) 0.6 % Eosinophils (%) (Auto) 0.7 % Basophils (%) (Auto) 0.3 % Neutrophils # (Auto) 6.9 TH/MM3 Lymphocytes # (Auto) 0.6 TH/MM3 Monocytes # (Auto) 0.0 TH/MM3 Eosinophils # (Auto) 0.1 TH/MM3 Basophils # (Auto) 0.0 TH/MM3 CBC Comment DIFF FINAL Differential Comment Prothrombin Time 21.4 SEC Prothromb Time International Ratio 2.1 RATIO Blood Urea Nitrogen 49 MG/DL Creatinine 1.14 MG/DL Random Glucose 93 MG/DL Total Protein 7.4 GM/DL Albumin 1.6 GM/DL Calcium Level 9.6 MG/DL Alkaline Phosphatase 249 U/L Aspartate Amino Transf (AST/SGOT) 69 U/L Alanine Aminotransferase (ALT/SGPT) 31 U/L Total Bilirubin 0.7 MG/DL Sodium Level 136 MEQ/L Potassium Level 4.2 MEQ/L Chloride Level 102 MEQ/L Carbon Dioxide Level 21.6 MEQ/L Anion Gap 12 MEQ/L Estimat Glomerular Filtration Rate 61 ML/MIN Culture Results Microbiology Date/Time Source Procedure Growth Status 05/05/17 19:10 Blood Peripheral Aerobic Blood Culture Pending Received 05/05/17 19:10 Blood Peripheral Anaerobic Blood Culture Pending Received 05/05/17 19:05 Blood Peripheral Aerobic Blood Culture Pending Received 05/05/17 19:05 Blood Peripheral Anaerobic Blood Culture Pending Received 05/03/17 14:00 Urine Other Urine Culture - Final NO GROWTH IN 48 HOURS. Complete Administered Medications Medications (Trade) Dose Ordered Sig/Erendira Route PRN Reason Start Time Stop Time Status Last Admin Dose Admin Sodium Chloride (NS Flush) 2 ml UNSCH PRN IV FLUSH FLUSH AFTER USING IV ACCESS 04/25/17 18:15 04/26/17 07:40 Sodium Chloride (NS Flush) 2 ml BID IV FLUSH 04/25/17 21:00 05/05/17 20:18 Senna/Docusate Sodium (Julieta-Colace) 1 tab BID PO 04/26/17 09:00 05/06/17 09:02 Miscellaneous Information 1 Q3D T-DERMAL 04/29/17 09:00 04/29/17 08:54 Vancomycin HCl (VANCOMYCIN for oral use only) 125 mg QID PO 04/26/17 09:00 05/06/17 09:01 Hydromorphone HCl (Dilaudid Pf Inj) 2 mg Q2HR PRN IV PUSH pain >5 04/27/17 15:00 05/06/17 09:02 Furosemide (Lasix Inj) 20 mg BID@,18 IV PUSH 04/30/17 18:00 05/06/17 09:02 Morphine Sulfate (Oramorph Sr) 60 mg Q8H PO 05/01/17 18:00 05/06/17 09:02 Multivitamins/ Minerals Therapeutic (Theragran M Tab) 1 tab DAILY PO 05/02/17 09:00 05/06/17 09:02 Diphenhydramine HCl (Benadryl) 25 mg Q4H PRN PO SEE LABEL COMMENTS 05/03/17 10:00 05/03/17 11:35 Cefepime HCl 1000 mg/Sodium Chloride 100 ml @ 200 mls/hr Q12H IV 05/03/17 12:00 05/05/17 23:00 Warfarin Sodium (Coumadin) 4 mg DAILY@16 PO 05/04/17 16:00 05/05/17 16:00 Lactulose (Lactulose Liq) 30 ml QID PO 05/04/17 09:00 05/04/17 18:14 Objective Remarks GENERAL: Middle aged female sitting up in bed; tearful about overnight events. SKIN: Warm and dry. HEAD: Normocephalic. EYES: No injection or drainage. NECK: Supple, trachea midline. CARDIOVASCULAR: +S1/S2, tachy RESPIRATORY: Breath sounds equal bilaterally. No accessory muscle use. : left nephrostomy tube draining clear urine. suprapubic catheter with pink tinged urine. GASTROINTESTINAL: Abdomen soft, non-tender, nondistended. +BS EXTREMITIES: No cyanosis. Generalized edema to BLE. NEUROLOGICAL: Awake and alert, normal speech. Moving all extremities. Assessment/Plan Problem List: (1) Metastatic disease ICD Codes: C79.9 - Secondary malignant neoplasm of unspecified site Plan: 05/02: chemotherapy with Carboplatin, Gemcitabine, Avastin. --history of stage IV adenocarcinoma of unknown primary. --thought to be possibly primary neoplasm of upper digestive origin, such has cholangio, pancreatic or gastric. (2) Normocytic anemia ICD Codes: D64.9 - Anemia, unspecified Plan: --transfuse as needed. (3) Cancer associated pain ICD Codes: G89.3 - Neoplasm related pain (acute) (chronic) Status: Acute Plan: --pain improved on current regimen --PET scan shows diffuse disease in lungs, abdomen and skeleton. --currently on ORAMORPH 60mg PO q 8+ Dilaudid 2mg IV q 2 hours (4) DVT (deep venous thrombosis) ICD Codes: I82.409 - Acute embolism and thrombosis of unspecified deep veins of unspecified lower extremity Status: Chronic Plan: --on coumadin (5) C. difficile diarrhea ICD Codes: A04.72 - Enterocolitis due to Clostridium difficile, not specified as recurrent Plan: --on PO Vanco -- Will repeat stool for Cdiff (6) UTI (urinary tract infection) ICD Codes: N39.0 - Urinary tract infection, site not specified Plan: +pseudomonas. on Cefepime. (7) Sacral decubitus ulcer ICD Codes: L89.159 - Pressure ulcer of sacral region, unspecified stage Plan: --consult wound care Assessment 51y/o female with stage IV adenocarcinoma, with liver and lung metastasis with unknown primary admitted with intractable pain mostly in lower spine. --was residing in [facility] and according to the patient she received radiation and chemotherapy. Subsequently she moved to [facility]. --recently had DVT in her left lower extremity. was in [place] at that time. has been on anticoagulation. PET scan-->diffuse disease involving her lung, abdomen and bones. history of cervical cancer in 2005 treated with chemotherapy and radiation treatments. Bilateral lower extremity DVT Severe peripheral neuropathy. Plan 1. Pt reports she feels like she needs the breakthrough pain every 2 hours, but when the looking at the records it appears that she requests this much less frequently. 2. Continue current pain regimen for now. 3. Monitor CBC 4. Continue Coumadin Attending Statement The exam, history, and the medical decision-making described in the above note were completed with the assistance of the mid-level provider. I reviewed and agree with the findings presented. I attest that I had a [id number] encounter with the patient on the same day, and personally performed and documented my assessment and findings in the medical record. 51 yoF with carcinoma of unknown primary undergoing chemotherapy admitted with intractable pain. This has improved on current pain medication regimen. . Problem Qualifiers (1) DVT (deep venous thrombosis): (2) Sacral decubitus ulcer: Qualified Codes: L89.159 - Pressure ulcer of sacral region, unspecified stage Emi Daniels May 06, 2017 10:12 Eleonora Martinez MD May 07, 2017 00:40
[2017-05-06] MEDS: CEFEPIME INJ 1,000 MG in SODIUM CHLORIDE 0.9% INJ 100 ML IV SCH ×2 (12:00→23:25)
[2017-05-06] MEDS: SODIUM CHLORIDE 0.9% FLUSH 10 ML FLUSH IV FLUSH PRN (13:23)
--- NOTE | 2017-05-06 14:30 | HHI.PR ---
Subjective Remarks Pt had a fever yesterday afternoon, once, it is now resolved. She says she feels much better, and better than she has felt in a while. She is planning to get up to a chair today. Stools remain formed (no more diarrhea) Objective Vitals Vital Signs Date Time Temp Pulse Resp B/P (MAP) Pulse Ox O2 Delivery O2 Flow Rate FiO2 05/06/17 12:12 99.7 124 20 112/58 (76) 99 05/06/17 08:06 98.9 102 24 117/66 (83) 98 05/06/17 05:00 98.5 110 16 124/66 (85) 95 05/05/17 23:00 98.0 110 16 123/79 (94) 100 05/05/17 20:15 119 05/05/17 20:14 98.2 116 16 117/70 (86) 99 05/05/17 16:54 100.6 130 20 133/74 (93) 97 I/O 05/05/17 05/05/17 05/05/17 05/06/17 05/06/17 05/06/17 07:00 15:00 23:00 07:00 15:00 23:00 Intake Total 500 ml 100 ml Output Total 400 ml 925 ml 325 ml 750 ml Balance -400 ml -925 ml 175 ml -650 ml IV Total 500 ml 100 ml Output Urine Total 275 ml 125 ml 300 ml Drainage Total 400 ml 650 ml 200 ml 450 ml # Bowel Movements 4 2 Result Diagram: 05/06/17 0500 05/06/17 0500 Objective Remarks GENERAL: Weakened appearing female. SKIN: Warm and dry. HEAD: Normocephalic. EYES: No scleral icterus. No injection or drainage. NECK: Supple, trachea midline. No JVD or lymphadenopathy. CARDIOVASCULAR: Regular rate and rhythm without murmurs, gallops, or rubs. RESPIRATORY: Breath sounds equal bilaterally. No accessory muscle use. GASTROINTESTINAL: Abdomen soft, non-tender, nondistended. MUSCULOSKELETAL: No cyanosis, or edema. BACK: Nontender without obvious deformity. No CVA tenderness. EXTREMITIES: no edema A/P Problem List: (1) Cancer associated pain ICD Code: G89.3 - Neoplasm related pain (acute) (chronic) Status: Acute (2) Protein calorie malnutrition ICD Code: E46 - Unspecified protein-calorie malnutrition (3) Diarrhea ICD Code: R19.7 - Diarrhea, unspecified (4) Metastatic disease ICD Code: C79.9 - Secondary malignant neoplasm of unspecified site (5) C. difficile diarrhea ICD Code: A04.72 - Enterocolitis due to Clostridium difficile, not specified as recurrent Assessment and Plan Metastatic Disease Stage IV adenocarcinoma of unknown primary origin Undergoing chemotherapy while she is here Oncology following Cancer Associated Pain Ontomorph 60mg Q8 with Dilaudid 2mg Q2 MRI of lumbar spine did not find spread of cancer there PET scan from earlier shows pervasive disease New Fever Blood cultures pending If persistent, will culture catheter, port, etc. C Diff Diarrhea Improving, more formed stools today Continue PO Vancomycin Pseudomonas UTI Continue Cefepime Some associated hematuria Suprapubic catheter present Sacral Ulcer Wound care consult Anemia s/p 1 unit PRBC, iron deficiency Acute Renal Failure Following BUN/Cr h/o DVT On Coumadin from home Follow INR periodically Tommie Matias MD May 06, 2017 14:30
[2017-05-06] MEDS: WARFARIN SOD 4 MG TAB PO SCH (17:31)
[2017-05-06 18:26] LABS: AUTOMATED NEUTROPHIL # 3.7 TH/MM3 (1.8-7.7); BASOPHIL % 0.5 % (0.0-2.0); EOSINOPHIL % 0.8 % (0.0-4.0); HEMATOCRIT 23.5 % (35.0-46.0); LYMPHOCYTE # 0.4 TH/MM3 (1.0-4.8); MEAN CELL VOLUME 86.5 FL (80.0-100.0); MEAN CORPUSCULAR HEMOGLOBIN 29.4 PG (27.0-34.0); MEAN CORPUSCULAR HGB CONC 33.9 % (32.0-36.0); MEAN PLATELET VOLUME 8.2 FL (7.0-11.0); MONO % 1.3 % (0.0-8.0); MONOCYTE # 0.1 TH/MM3 (0-0.9); NEUT % 87.4 % (16.0-70.0); PLATELET COUNT 282 TH/MM3 (150-450); RED BLOOD COUNT 2.72 MIL/MM3 (4.00-5.30); RED CELL DISTRIBUTION WIDTH 17.1 % (11.6-17.2); WHITE BLOOD COUNT 4.2 TH/MM3 (4.0-11.0)
[2017-05-07] VITALS (9 sets, daily range): BP systolic 93–128; BP diastolic 46–70; PULSE 103–130; RESP 16–20; TEMP 98–99.4; O2SAT 97–100
[2017-05-07] MEDS: HYDROmorphone HCL PF 2 MG/ML VIAL IV PUSH PRN ×6 (00:44→18:56)
[2017-05-07] MEDS: MORPHINE SULFATE 30 MG CONTROLLED RELEASE TAB PO SCH ×3 (03:04→17:43)
[2017-05-07 05:50] LABS: MEAN CORPUSCULAR HGB CONC 32.9 % (32.0-36.0); MEAN PLATELET VOLUME 7.9 FL (7.0-11.0); PLATELET COUNT 200 TH/MM3 (150-450); RED BLOOD COUNT 2.23 MIL/MM3 (4.00-5.30); RED CELL DISTRIBUTION WIDTH 16.9 % (11.6-17.2); WHITE BLOOD COUNT 1.8 TH/MM3 (4.0-11.0)
[2017-05-07 05:55] LABS: HEMATOCRIT 19.6 % (35.0-46.0); HEMOGLOBIN 6.5 GM/DL (11.6-15.3); INTERNATIONAL NORMALIZED RATIO 1.7 RATIO; PROTHROMBIN TIME - PATIENT 17.6 SEC (9.8-11.6)
[2017-05-07 06:14] LABS: ALBUMIN 1.4 GM/DL (3.4-5.0); AST (GOT) 45 U/L (15-37); BICARBONATE 25.2 MEQ/L (21.0-32.0); BLOOD UREA NITROGEN 44 MG/DL (7-18); CALCIUM 8.9 MG/DL (8.5-10.1); CHLORIDE 102 MEQ/L (98-107); CREATININE 1.13 MG/DL (0.50-1.00); GLOMERULAR FILTRATION RATE 61 ML/MIN (>89); GLUCOSE,RANDOM 99 MG/DL (74-106); SODIUM (NA) 137 MEQ/L (136-145)
[2017-05-07 06:15] LABS: ALT (GPT) 23 U/L (10-53)
[2017-05-07 06:17] LABS: ALKALINE PHOSPHATASE 207 U/L (45-117); TOTAL BILIRUBIN ADULT 0.4 MG/DL (0.2-1.0); TOTAL PROTEIN 6.6 GM/DL (6.4-8.2)
[2017-05-07] MEDS ORDERED: SODIUM CHLOR 0.9% 250 ML INJ 250 ML IV ONE ×2 (06:45→11:30)
[2017-05-07] MEDS ORDERED: FUROSEMIDE 20 MG/2 ML VIAL IV PUSH ONE (06:45)
[2017-05-07 07:24] LABS: BANDS 5 % (0-6); LYMPHOCYTES 21 % (9-44); NEUTROPHIL # MANUAL DIFF 1.4 TH/MM3 (1.8-7.7); POLYS (SEG NEUTROPHILS) 74 % (16-70)
[2017-05-07] MEDS: MULTIVITAMINS/MINERALS THERAPEUTIC TAB PO SCH (08:09)
[2017-05-07] MEDS: VANCOMYCIN 500 MG VIAL (FOR ORAL USE ONLY) PO SCH ×4 (08:09→21:37)
[2017-05-07] MEDS: FUROSEMIDE 20 MG/2 ML VIAL IV PUSH SCH ×2 (08:22→17:44)
[2017-05-07] MEDS: SODIUM CHLORIDE 0.9% FLUSH 10 ML FLUSH IV FLUSH SCH ×2 (08:23→21:37)
--- NOTE | 2017-05-07 10:06 | PD.ONC.PN ---
Subjective Subjective Remarks Afebrile overnight. Patient resting in bed. Having some loose stools now. States her pain is controlled but she is requiring the IV Dilaudid every 2-3 hours. Objective Data Date Time Temp Pulse Resp B/P (MAP) Pulse Ox O2 Delivery O2 Flow Rate FiO2 05/07/17 08:31 98.7 116 18 103/51 (68) 100 05/07/17 00:00 98.3 112 20 127/69 (88) 99 05/06/17 20:25 98.6 120 20 111/63 (79) 98 05/06/17 16:28 98.7 117 22 137/62 (87) 99 05/06/17 14:14 110 05/06/17 12:12 99.7 124 20 112/58 (76) 99 05/07/17 05/07/17 05/07/17 07:00 15:00 23:00 Intake Total 680 ml Output Total 700 ml Balance -20 ml Result Diagram: 05/07/17 0450 05/07/17 0450 Laboratory Results Laboratory Tests Test 05/06/17 13:20 05/06/17 17:40 05/07/17 04:50 Stool C. difficile Toxin (PCR) POSITIVE Stl C. difficile Toxin Epiderm 027 PRESUMPTIVE NEGATIVE White Blood Count 4.2 TH/MM3 1.8 TH/MM3 Red Blood Count 2.72 MIL/MM3 2.23 MIL/MM3 Hemoglobin 8.0 GM/DL 6.5 GM/DL Hematocrit 23.5 % 19.6 % Mean Corpuscular Volume 86.5 FL 88.0 FL Mean Corpuscular Hemoglobin 29.4 PG 29.0 PG Mean Corpuscular Hemoglobin Concent 33.9 % 32.9 % Red Cell Distribution Width 17.1 % 16.9 % Platelet Count 282 TH/MM3 200 TH/MM3 Mean Platelet Volume 8.2 FL 7.9 FL Neutrophils (%) (Auto) 87.4 % Lymphocytes (%) (Auto) 10.0 % Monocytes (%) (Auto) 1.3 % Eosinophils (%) (Auto) 0.8 % Basophils (%) (Auto) 0.5 % Neutrophils # (Auto) 3.7 TH/MM3 Lymphocytes # (Auto) 0.4 TH/MM3 Monocytes # (Auto) 0.1 TH/MM3 Eosinophils # (Auto) 0.0 TH/MM3 Basophils # (Auto) 0.0 TH/MM3 CBC Comment DIFF FINAL AUTO DIFF Differential Comment FINAL DIFF MANUAL Differential Total Cells Counted 100 Neutrophils % (Manual) 74 % Band Neutrophils % 5 % Lymphocytes % 21 % Neutrophils # (Manual) 1.4 TH/MM3 Platelet Estimate NORMAL Platelet Morphology Comment NORMAL Prothrombin Time 17.6 SEC Prothromb Time International Ratio 1.7 RATIO Blood Urea Nitrogen 44 MG/DL Creatinine 1.13 MG/DL Random Glucose 99 MG/DL Total Protein 6.6 GM/DL Albumin 1.4 GM/DL Calcium Level 8.9 MG/DL Alkaline Phosphatase 207 U/L Aspartate Amino Transf (AST/SGOT) 45 U/L Alanine Aminotransferase (ALT/SGPT) 23 U/L Total Bilirubin 0.4 MG/DL Sodium Level 137 MEQ/L Potassium Level 3.8 MEQ/L Chloride Level 102 MEQ/L Carbon Dioxide Level 25.2 MEQ/L Anion Gap 10 MEQ/L Estimat Glomerular Filtration Rate 61 ML/MIN Culture Results Microbiology Date/Time Source Procedure Growth Status 05/05/17 19:10 Blood Peripheral Aerobic Blood Culture Pending Received 05/05/17 19:10 Blood Peripheral Anaerobic Blood Culture Pending Received 05/05/17 19:05 Blood Peripheral Aerobic Blood Culture Pending Received 05/05/17 19:05 Blood Peripheral Anaerobic Blood Culture Pending Received Administered Medications Medications (Trade) Dose Ordered Sig/Erendira Route PRN Reason Start Time Stop Time Status Last Admin Dose Admin Sodium Chloride (NS Flush) 2 ml UNSCH PRN IV FLUSH FLUSH AFTER USING IV ACCESS 04/25/17 18:15 05/06/17 13:23 Sodium Chloride (NS Flush) 2 ml BID IV FLUSH 04/25/17 21:00 05/07/17 08:23 Senna/Docusate Sodium (Julieta-Colace) 1 tab BID PO 04/26/17 09:00 05/06/17 09:02 Miscellaneous Information 1 Q3D T-DERMAL 04/29/17 09:00 04/29/17 08:54 Vancomycin HCl (VANCOMYCIN for oral use only) 125 mg QID PO 04/26/17 09:00 05/07/17 08:09 Hydromorphone HCl (Dilaudid Pf Inj) 2 mg Q2HR PRN IV PUSH pain >5 04/27/17 15:00 05/07/17 08:10 Furosemide (Lasix Inj) 20 mg BID@09,18 IV PUSH 04/30/17 18:00 05/07/17 08:22 Morphine Sulfate (Oramorph Sr) 60 mg Q8H PO 05/01/17 18:00 05/07/17 03:04 Multivitamins/ Minerals Therapeutic (Theragran M Tab) 1 tab DAILY PO 05/02/17 09:00 05/07/17 08:09 Diphenhydramine HCl (Benadryl) 25 mg Q4H PRN PO SEE LABEL COMMENTS 05/03/17 10:00 05/03/17 11:35 Cefepime HCl 1000 mg/Sodium Chloride 100 ml @ 200 mls/hr Q12H IV 05/03/17 12:00 05/06/17 23:25 Warfarin Sodium (Coumadin) 4 mg DAILY@16 PO 05/04/17 16:00 05/06/17 17:31 Lactulose (Lactulose Liq) 30 ml QID PO 05/04/17 09:00 05/04/17 18:14 Objective Remarks GENERAL: Middle aged female lying in bed in [facility]. SKIN: Warm and dry. HEAD: Normocephalic. EYES: No injection or drainage. NECK: Supple, trachea midline. CARDIOVASCULAR: +tachy rate, regular rhythm. RESPIRATORY: Breath sounds equal bilaterally. No accessory muscle use. : left nephrostomy tube draining clear urine. suprapubic catheter in place with clear urine draining. GASTROINTESTINAL: Abdomen soft, non-tender, nondistended. EXTREMITIES: No cyanosis. bilateral lower extremities with edema. NEUROLOGICAL: awake and alert. normal speech. no obvious focal deficit. Assessment/Plan Problem List: (1) Metastatic disease ICD Codes: C79.9 - Secondary malignant neoplasm of unspecified site Plan: --s/p chemotherapy with Carboplatin, Gemcitabine, Avastin on 04/22 --history of stage IV adenocarcinoma of unknown primary. --thought to be possibly primary neoplasm of upper digestive origin, such has cholangio, pancreatic or gastric. (2) Normocytic anemia ICD Codes: D64.9 - Anemia, unspecified Plan: --transfuse as needed. (3) Cancer associated pain ICD Codes: G89.3 - Neoplasm related pain (acute) (chronic) Status: Acute Plan: --PET scan shows diffuse disease in lungs, abdomen and skeleton. --currently on ORAMORPH 60mg PO q 8+ Dilaudid 2mg IV q 2 hours (4) DVT (deep venous thrombosis) ICD Codes: I82.409 - Acute embolism and thrombosis of unspecified deep veins of unspecified lower extremity Status: Chronic Plan: --on coumadin (5) C. difficile diarrhea ICD Codes: A04.72 - Enterocolitis due to Clostridium difficile, not specified as recurrent Plan: --on PO Vanco --repeat stool +Cdiff on 05/06 (6) UTI (urinary tract infection) ICD Codes: N39.0 - Urinary tract infection, site not specified Plan: +pseudomonas. on Cefepime. (7) Sacral decubitus ulcer ICD Codes: L89.159 - Pressure ulcer of sacral region, unspecified stage Plan: --wound care following. Assessment 51y/o female with stage IV adenocarcinoma, with liver and lung metastasis with unknown primary admitted with intractable pain mostly in lower spine. --was residing in [facility] and according to the patient she received radiation and chemotherapy. Subsequently she moved to [place] and [place]. --recently had DVT in her left lower extremity. was in [place] at that time. has been on anticoagulation. PET scan-->diffuse disease involving her lung, abdomen and bones. history of cervical cancer in 2005 treated with chemotherapy and radiation treatments. Bilateral lower extremity DVT Severe peripheral neuropathy. Plan 1. continue Oramorph/Dilaudid. will need to increase long-acting if patient continues to require so much IV dilaudid. 2. continue PO Vanco, will place laxatives on hold, patient has C.diff, diarrhea 3. agree with 2 units pRBC 4. monitor CBC Attending Statement The exam, history, and the medical decision-making described in the above note were completed with the assistance of the mid-level provider. I reviewed and agree with the findings presented. I attest that I had a [id number] encounter with the patient on the same day, and personally performed and documented my assessment and findings in the medical record. Problem Qualifiers (1) DVT (deep venous thrombosis): (2) Sacral decubitus ulcer: Qualified Codes: L89.159 - Pressure ulcer of sacral region, unspecified stage Debra Newell May 07, 2017 10:06 Coleman Hester MD May 10, 2017 00:51
[2017-05-07] MEDS ORDERED: diphenhydrAMINE HCL 25 MG CAP PO PRN (11:30)
[2017-05-07] MEDS: CEFEPIME INJ 1,000 MG in SODIUM CHLORIDE 0.9% INJ 100 ML IV SCH (13:16)
[2017-05-07 14:00] LABS: AUTOMATED NEUTROPHIL # 2.2 TH/MM3 (1.8-7.7); BASOPHIL % 0.6 % (0.0-2.0); EOSINOPHIL % 0.8 % (0.0-4.0); HEMATOCRIT 23.9 % (35.0-46.0); HEMOGLOBIN 7.7 GM/DL (11.6-15.3); LYMPH % 14.4 % (9.0-44.0); LYMPHOCYTE # 0.4 TH/MM3 (1.0-4.8); MEAN CELL VOLUME 87.2 FL (80.0-100.0); MEAN CORPUSCULAR HEMOGLOBIN 28.2 PG (27.0-34.0); MEAN CORPUSCULAR HGB CONC 32.3 % (32.0-36.0); MEAN PLATELET VOLUME 7.7 FL (7.0-11.0); MONO % 2.2 % (0.0-8.0); MONOCYTE # 0.1 TH/MM3 (0-0.9); PLATELET COUNT 241 TH/MM3 (150-450); RED BLOOD COUNT 2.74 MIL/MM3 (4.00-5.30); RED CELL DISTRIBUTION WIDTH 17.9 % (11.6-17.2); WHITE BLOOD COUNT 2.6 TH/MM3 (4.0-11.0)
[2017-05-07 14:25] LABS: BICARBONATE 25.7 MEQ/L (21.0-32.0); CREATININE 1.11 MG/DL (0.50-1.00)
[2017-05-07 14:28] LABS: SICKLE CELL SCREEN NEG (NEG)
[2017-05-07] MEDS: ACETAMINOPHEN 325 MG TAB PO PRN ×2 (15:04→18:55)
[2017-05-07] MEDS: diphenhydrAMINE HCL 25 MG CAP PO PRN (15:04)
[2017-05-07] MEDS: FILGRASTIM INJ 300 MCG in DEXTROSE 5% IN WATER INJ 24 ML IV SCH ×2 (15:10)
--- NOTE | 2017-05-07 15:38 | HHI.PR ---
Subjective Remarks Marked decrease in her hemoglobin today from 8.0 to 6.5, but without any symptoms and without any signs of blood loss. Patient says she is unaware if she carries sickle cell trait, she denies any gross GI bleeding, but does notice trace blood in her urine periodically (no gross blood today). Objective Vitals Vital Signs Date Time Temp Pulse Resp B/P (MAP) Pulse Ox O2 Delivery O2 Flow Rate FiO2 05/07/17 13:16 98.2 112 20 120/70 (87) 97 05/07/17 08:31 98.7 116 18 103/51 (68) 100 05/07/17 00:00 98.3 112 20 127/69 (88) 99 05/06/17 20:25 98.6 120 20 111/63 (79) 98 05/06/17 16:28 98.7 117 22 137/62 (87) 99 I/O 05/06/17 05/06/17 05/06/17 05/07/17 05/07/17 05/07/17 07:00 15:00 23:00 07:00 15:00 23:00 Intake Total 100 ml 680 ml 600 ml Output Total 750 ml 450 ml 700 ml 300 ml Balance -650 ml -450 ml -20 ml 300 ml Intake Oral 480 ml 600 ml IV Total 100 ml 200 ml Output Urine Total 300 ml 700 ml Drainage Total 450 ml 450 ml 300 ml # Bowel Movements 2 2 Result Diagram: 05/07/17 1313 05/07/17 1313 Objective Remarks GENERAL: Weakened appearing female. SKIN: Warm and dry. HEAD: Normocephalic. EYES: No scleral icterus. No injection or drainage. NECK: Supple, trachea midline. No JVD or lymphadenopathy. CARDIOVASCULAR: Regular rate and rhythm without murmurs, gallops, or rubs. RESPIRATORY: Breath sounds equal bilaterally. No accessory muscle use. GASTROINTESTINAL: Abdomen soft, non-tender, nondistended. MUSCULOSKELETAL: No cyanosis, or edema. BACK: Nontender without obvious deformity. No CVA tenderness. EXTREMITIES: no edema A/P Problem List: (1) Cancer associated pain ICD Code: G89.3 - Neoplasm related pain (acute) (chronic) Status: Acute (2) Protein calorie malnutrition ICD Code: E46 - Unspecified protein-calorie malnutrition (3) Diarrhea ICD Code: R19.7 - Diarrhea, unspecified (4) Metastatic disease ICD Code: C79.9 - Secondary malignant neoplasm of unspecified site (5) C. difficile diarrhea ICD Code: A04.72 - Enterocolitis due to Clostridium difficile, not specified as recurrent Assessment and Plan Metastatic Disease Stage IV adenocarcinoma of unknown primary origin Undergoing chemotherapy while she is here Oncology following Cancer Associated Pain Ontomorph 60mg Q8 with Dilaudid 2mg Q2 MRI of lumbar spine did not find spread of cancer there PET scan from earlier shows pervasive disease Anemia Hgb from 8.0 to 6.5, but without bleednig or acute change in symptoms Will transfuse 2 units of PRBC today Repeat CBC tomorrow, screen for sickle cell trait New Fever Resolved, will follow vitals and blood culture C Diff Diarrhea Improving, more formed stools today Continue PO Vancomycin Pseudomonas UTI Continue Cefepime Some associated hematuria Suprapubic catheter present Sacral Ulcer Wound care consult Anemia s/p 1 unit PRBC, iron deficiency Acute Renal Failure Following BUN/Cr h/o DVT Holding coumadin today given change in anemia Follow INR periodically Tommie Matias MD May 07, 2017 3:38 pm
[2017-05-08] VITALS (7 sets, daily range): BP systolic 100–140; BP diastolic 55–70; PULSE 107–129; RESP 16–20; TEMP 97.6–99.3; O2SAT 95–100
[2017-05-08] MEDS: HYDROmorphone HCL PF 2 MG/ML VIAL IV PUSH PRN ×2 (01:52→16:27)
[2017-05-08] MEDS: MORPHINE SULFATE 30 MG CONTROLLED RELEASE TAB PO SCH ×2 (01:52→09:44)
[2017-05-08 05:28] LABS: AUTOMATED NEUTROPHIL # 8.4 TH/MM3 (1.8-7.7); BASOPHIL % 0.1 % (0.0-2.0); EOSINOPHIL % 0.3 % (0.0-4.0); HEMATOCRIT 30.6 % (35.0-46.0); HEMOGLOBIN 10.2 GM/DL (11.6-15.3); LYMPH % 6.4 % (9.0-44.0); LYMPHOCYTE # 0.6 TH/MM3 (1.0-4.8); MEAN CELL VOLUME 86.4 FL (80.0-100.0); MEAN CORPUSCULAR HEMOGLOBIN 28.7 PG (27.0-34.0); MEAN CORPUSCULAR HGB CONC 33.3 % (32.0-36.0); MEAN PLATELET VOLUME 7.5 FL (7.0-11.0); MONO % 1.4 % (0.0-8.0); MONOCYTE # 0.1 TH/MM3 (0-0.9); NEUT % 91.8 % (16.0-70.0); PLATELET COUNT 208 TH/MM3 (150-450); RED BLOOD COUNT 3.54 MIL/MM3 (4.00-5.30); RED CELL DISTRIBUTION WIDTH 16.7 % (11.6-17.2); WHITE BLOOD COUNT 9.2 TH/MM3 (4.0-11.0)
[2017-05-08 05:50] LABS: INTERNATIONAL NORMALIZED RATIO 2.3 RATIO; PROTHROMBIN TIME - PATIENT 22.8 SEC (9.8-11.6)
[2017-05-08 05:53] LABS: ALBUMIN 1.5 GM/DL (3.4-5.0); AST (GOT) 50 U/L (15-37); BICARBONATE 24.9 MEQ/L (21.0-32.0); BLOOD UREA NITROGEN 44 MG/DL (7-18); CALCIUM 9.1 MG/DL (8.5-10.1); CHLORIDE 103 MEQ/L (98-107); CREATININE 1.21 MG/DL (0.50-1.00); GLOMERULAR FILTRATION RATE 57 ML/MIN (>89); GLUCOSE,RANDOM 119 MG/DL (74-106); SODIUM (NA) 135 MEQ/L (136-145)
[2017-05-08 05:54] LABS: ALT (GPT) 26 U/L (10-53)
[2017-05-08 05:56] LABS: ALKALINE PHOSPHATASE 242 U/L (45-117); TOTAL BILIRUBIN ADULT 0.5 MG/DL (0.2-1.0); TOTAL PROTEIN 7.3 GM/DL (6.4-8.2)
[2017-05-08 07:23] LABS: BANDS 16 % (0-6); LYMPHOCYTES 2 % (9-44); METAMYELOCYTES 1 % (0-1); MYELOCYTES 1 % (0-0); POLYS (SEG NEUTROPHILS) 80 % (16-70)
[2017-05-08 07:24] LABS: OVALOCYTES 1+ (NORMAL); TARGET CELLS 1+ (NORMAL)
[2017-05-08] MEDS: REMOVE OLD DURAGESIC (FENTANYL) PATCH T-DERMAL SCH (09:00)
[2017-05-08] MEDS: VANCOMYCIN 500 MG VIAL (FOR ORAL USE ONLY) PO SCH ×4 (09:38→21:05)
[2017-05-08] MEDS: MULTIVITAMINS/MINERALS THERAPEUTIC TAB PO SCH (09:38)
[2017-05-08] MEDS: SODIUM CHLORIDE 0.9% FLUSH 10 ML FLUSH IV FLUSH SCH ×2 (09:39→21:07)
[2017-05-08] MEDS: FUROSEMIDE 20 MG/2 ML VIAL IV PUSH SCH ×2 (09:39→17:54)
--- NOTE | 2017-05-08 11:48 | PD.ONC.PN ---
Subjective Subjective Remarks Afebrile overnight. Patient requiring about 12mg IV dilaudid for breakthrough pain in 24hours. States most of the pain is in her low back and legs. Also has pain in her pressure ulcer on her backside. Still with diarrhea. Objective Data Date Time Temp Pulse Resp B/P (MAP) Pulse Ox O2 Delivery O2 Flow Rate FiO2 05/08/17 04:25 99.3 129 19 140/70 (93) 100 05/08/17 00:41 97.6 107 16 119/67 (84) 95 05/07/17 21:30 98.6 103 19 128/67 (87) 100 05/07/17 20:12 109 05/07/17 19:08 98.0 110 18 111/65 100 05/07/17 18:51 99.0 117 20 117/67 100 05/07/17 15:58 99.4 128 18 93/46 99 05/07/17 15:51 99.0 130 16 95/49 99 05/07/17 13:16 98.2 112 20 120/70 (87) 97 05/08/17 05/08/17 05/08/17 07:00 15:00 23:00 Output Total 1250 ml Balance -1250 ml Result Diagram: 05/08/17 0500 05/08/17 0500 Laboratory Results Laboratory Tests Test 05/07/17 13:13 05/08/17 05:00 White Blood Count 2.6 TH/MM3 9.2 TH/MM3 Red Blood Count 2.74 MIL/MM3 3.54 MIL/MM3 Hemoglobin 7.7 GM/DL 10.2 GM/DL Hematocrit 23.9 % 30.6 % Mean Corpuscular Volume 87.2 FL 86.4 FL Mean Corpuscular Hemoglobin 28.2 PG 28.7 PG Mean Corpuscular Hemoglobin Concent 32.3 % 33.3 % Red Cell Distribution Width 17.9 % 16.7 % Platelet Count 241 TH/MM3 208 TH/MM3 Mean Platelet Volume 7.7 FL 7.5 FL Neutrophils (%) (Auto) 82.0 % 91.8 % Lymphocytes (%) (Auto) 14.4 % 6.4 % Monocytes (%) (Auto) 2.2 % 1.4 % Eosinophils (%) (Auto) 0.8 % 0.3 % Basophils (%) (Auto) 0.6 % 0.1 % Neutrophils # (Auto) 2.2 TH/MM3 8.4 TH/MM3 Lymphocytes # (Auto) 0.4 TH/MM3 0.6 TH/MM3 Monocytes # (Auto) 0.1 TH/MM3 0.1 TH/MM3 Eosinophils # (Auto) 0.0 TH/MM3 0.0 TH/MM3 Basophils # (Auto) 0.0 TH/MM3 0.0 TH/MM3 CBC Comment DIFF FINAL AUTO DIFF Differential Comment FINAL DIFF MANUAL Sickle Cell Screen NEG Blood Urea Nitrogen 43 MG/DL 44 MG/DL Creatinine 1.11 MG/DL 1.21 MG/DL Random Glucose 101 MG/DL 119 MG/DL Calcium Level 9.0 MG/DL 9.1 MG/DL Sodium Level 138 MEQ/L 135 MEQ/L Potassium Level 3.8 MEQ/L 3.8 MEQ/L Chloride Level 103 MEQ/L 103 MEQ/L Carbon Dioxide Level 25.7 MEQ/L 24.9 MEQ/L Anion Gap 9 MEQ/L 7 MEQ/L Estimat Glomerular Filtration Rate 62 ML/MIN 57 ML/MIN Differential Total Cells Counted 100 Neutrophils % (Manual) 80 % Band Neutrophils % 16 % Lymphocytes % 2 % Neutrophils # (Manual) 9.0 TH/MM3 Metamyelocytes 1 % Myelocytes 1 % Platelet Estimate NORMAL Platelet Morphology Comment NORMAL Target Cells 1+ Ovalocytes 1+ Prothrombin Time 22.8 SEC Prothromb Time International Ratio 2.3 RATIO Total Protein 7.3 GM/DL Albumin 1.5 GM/DL Alkaline Phosphatase 242 U/L Aspartate Amino Transf (AST/SGOT) 50 U/L Alanine Aminotransferase (ALT/SGPT) 26 U/L Total Bilirubin 0.5 MG/DL Culture Results Microbiology Date/Time Source Procedure Growth Status 05/05/17 19:10 Blood Peripheral Aerobic Blood Culture - Preliminary NO GROWTH IN 2 DAYS Resulted 05/05/17 19:10 Blood Peripheral Anaerobic Blood Culture - Preliminary NO GROWTH IN 2 DAYS Resulted 05/05/17 19:05 Blood Peripheral Aerobic Blood Culture - Preliminary NO GROWTH IN 2 DAYS Resulted 05/05/17 19:05 Blood Peripheral Anaerobic Blood Culture - Preliminary NO GROWTH IN 2 DAYS Resulted Administered Medications Medications (Trade) Dose Ordered Sig/Erendira Route PRN Reason Start Time Stop Time Status Last Admin Dose Admin Sodium Chloride (NS Flush) 2 ml UNSCH PRN IV FLUSH FLUSH AFTER USING IV ACCESS 04/25/17 18:15 05/06/17 13:23 Sodium Chloride (NS Flush) 2 ml BID IV FLUSH 04/25/17 21:00 05/08/17 09:39 Senna/Docusate Sodium (Julieta-Colace) 1 tab BID PO 04/26/17 09:00 Future Hold 05/06/17 09:02 Miscellaneous Information 1 Q3D T-DERMAL 04/29/17 09:00 04/29/17 08:54 Vancomycin HCl (VANCOMYCIN for oral use only) 125 mg QID PO 04/26/17 09:00 05/08/17 09:38 Hydromorphone HCl (Dilaudid Pf Inj) 2 mg Q2HR PRN IV PUSH pain >5 04/27/17 15:00 05/08/17 01:52 Furosemide (Lasix Inj) 20 mg BID@ IV PUSH 04/30/17 18:00 05/08/17 09:39 Multivitamins/ Minerals Therapeutic (Theragran M Tab) 1 tab DAILY PO 05/02/17 09:00 05/08/17 09:38 Cefepime HCl 1000 mg/Sodium Chloride 100 ml @ 200 mls/hr Q12H IV 05/03/17 12:00 05/08/17 00:00 Filgrastim 300 mcg/Dextrose 25 ml @ 100 mls/hr DAILY@14 IV 05/07/17 14:00 Future Hold 05/07/17 15:10 Diphenhydramine HCl (Benadryl) 25 mg Q4H PRN PO SEE LABEL COMMENTS 05/07/17 11:30 05/07/17 18:55 Objective Remarks GENERAL: chronically ill appearing female lying in bed in [facility]. SKIN: Warm and dry. HEAD: Normocephalic. EYES: No injection or drainage. NECK: Supple, trachea midline. CARDIOVASCULAR: tachy, regular rhythm. RESPIRATORY: Breath sounds equal bilaterally. No accessory muscle use. : left nephrostomy tube in place, draining clear urine. suprapubic catheter in place with bloody urine draining. GASTROINTESTINAL: Abdomen soft, non-tender, nondistended. EXTREMITIES: No cyanosis. bilateral lower extremities with 2+ edema. NEUROLOGICAL: aox3. normal speech. moving extremities. Assessment/Plan Problem List: (1) Metastatic disease ICD Codes: C79.9 - Secondary malignant neoplasm of unspecified site Plan: --s/p chemotherapy with Carboplatin, Gemcitabine, Avastin on 04/22 --history of stage IV adenocarcinoma of unknown primary. --thought to be possibly primary neoplasm of upper digestive origin, such has cholangio, pancreatic or gastric. (2) Normocytic anemia ICD Codes: D64.9 - Anemia, unspecified Plan: --transfuse as needed. (3) Cancer associated pain ICD Codes: G89.3 - Neoplasm related pain (acute) (chronic) Status: Acute Plan: --PET scan shows diffuse disease in lungs, abdomen and skeleton. --currently on ORAMORPH 60mg PO q 8+ Dilaudid 2mg IV q 2 hours (4) DVT (deep venous thrombosis) ICD Codes: I82.409 - Acute embolism and thrombosis of unspecified deep veins of unspecified lower extremity Status: Chronic Plan: --on coumadin (5) C. difficile diarrhea ICD Codes: A04.72 - Enterocolitis due to Clostridium difficile, not specified as recurrent Plan: --on PO Vanco --repeat stool +Cdiff on 05/06 (6) UTI (urinary tract infection) ICD Codes: N39.0 - Urinary tract infection, site not specified Plan: +pseudomonas. on Cefepime (7) Sacral decubitus ulcer ICD Codes: L89.159 - Pressure ulcer of sacral region, unspecified stage Plan: --wound care following. Assessment 51y/o female with stage IV adenocarcinoma, with liver and lung metastasis with unknown primary admitted with intractable pain mostly in lower spine. --was residing in [facility] and according to the patient she received radiation and chemotherapy. Subsequently she moved to [place] and [place]. --recently had DVT in her left lower extremity. was in [place] at that time. has been on anticoagulation. PET scan-->diffuse disease involving her lung, abdomen and bones. history of cervical cancer in 2006 treated with chemotherapy and radiation treatments. Bilateral lower extremity DVT Severe peripheral neuropathy. Plan 1. patient requiring about 12mg IV dilaudid/24 hours period for breakthrough pain. will increase Oramorph to 100mg PO TID in order to reduce the amount of breakthrough pain required. 2. continue PO Vanco 3. resume coumadin 4. monitor CBC Attending Statement The exam, history, and the medical decision-making described in the above note were completed with the assistance of the mid-level provider. I reviewed and agree with the findings presented. I attest that I had a [id number] encounter with the patient on the same day, and personally performed and documented my assessment and findings in the medical record. Problem Qualifiers (1) DVT (deep venous thrombosis): (2) Sacral decubitus ulcer: Qualified Codes: L89.159 - Pressure ulcer of sacral region, unspecified stage Debra Newell May 08, 2017 11:48 Coleman Hester MD May 10, 2017 00:52
[2017-05-08] MEDS: CEFEPIME INJ 1,000 MG in SODIUM CHLORIDE 0.9% INJ 100 ML IV SCH ×3 (12:49)
--- NOTE | 2017-05-08 13:17 | PD.CONS ---
Consult Service Palliative Care . Consult Requested By Dr. Ordonez . Primary Care Physician SUDEEP Ziegler . Reason for Consultation a. To assist with evaluation and management of symptoms including: pain, decreased appetite b. To assist medical decision maker(s) with: better understanding of current medical conditions; weighing benefits/burdens of medical treatment options; making medical treatment decisions. . (Harini Linares) HPI History of Present Illness Ms. 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 Additional medical history is significant for CKD, DVTs bilateral lower extremities, bilateral ureteral obstruction and peripheral neuropathy. Patient presented to [facility] on 04/25/2017 with intractable back pain that is unmanaged despite using Percocet at home. She reported increased edema in bilateral extremities as well as progressively increased weakness and fatigue. Patient follows Dr. Hester but has not yet started on chemotherapy. Of note, a recent PET scan revealed diffuse disease involving her lungs, abdomen and bones. Additionally, patient is anemic requiring blood transfusions as well as iron infusions. Additional diagnostic data includes: * Vital signs: Pulse 112, respirations 22, BP 167/99, oxygen saturation 97% on room air in tympanic temperature of 97.8 * WBC: 4.5, hemoglobin 9.3, hematocrit 29.6, platelets 570, neutrophils 84.4% * Sodium: 139, potassium 3.5, chloride 109, carbon dioxide 18.8, glucose 88, calcium 8.6 * BUN: 20, creatinine 0.99, GFR 71 * Total bilirubin: 0.7, AST 43, ALT 13, alkaline phosphatase 184 * Total troponin: <0.02 * Total protein: 7.1, albumin 1.9 * PT: 22.1, INR 2.2, APTT 35.1 * Chest x-ray feels multiple bilateral pulmonary nodules concerning for metastatic disease. * Ultrasound of the lower extremities showed no evidence of DVT; inguinal lymph nodes were enlarged bilaterally with the largest measuring 5 cm in diameter. Patient was admitted under the hospitalist services for pain management. Pain was rated 8 out of 10 and described as aching "all over." Patient reported her pain was previously relieved with IV hydromorphone PRN. Patient complaining of diarrhea 1 week with several episodes of diarrhea daily; patient positive for C. difficile and started on oral vancomycin. Dr. Hester, oncology was consulted. Patient on fentanyl patch 25 g every 72 hours and 2 mg Dilaudid IV q3 hours PRN for symptom management. She used approximately 14 mg of IV Dilaudid and a 24 hour which is equivalent to 280 mg of oral morphine. Fentanyl patch was discontinued and the patient was started on Oramorph 60 mg PO every 8 hours; PRN Dilaudid frequency was increased to every 2 hours when necessary, but dosage was unchanged. MRI of the spine did not show disease progression Patient has a history of bilateral ureteral obstruction status post left-sided nephrostomy tube placement as well as a right ureteral stent placement in 2016. Patient made no urine overnight, bladder scan showing approximately 300 mL 's of urine in her bladder. Unable to catheterize patient, urology was consulted. Urology was unable to catheterize patient secondary to suspected tumors. IR was consulted and a suprapubic catheter was placed. Nephrology consulted due to acute on chronic kidney disease. Urine culture with Pseudomonas -on Rocephin with associated hematuria. Dr. Glass spoke with the patient and her on 04/29/2017. Imaging, tumor involvement and pathology reports from liver biopsies were discussed. The patient and her were surprised and indicated they were unaware that she was terminally ill. Awaiting results of additional tests to help direct further treatment. Dr. Glass informed the patient that any treatments would be palliative in nature and the meaning the term "palliative" was clarified. 05/02/2017: Patient started on chemotherapy with Carboplatin, Gemcitabine and Avastin. Ongoing hematuria; requiring further transfusions on 05/01/2017; 2016; 05/07/2017. Wound care following secondary to sacral ulcer. C. difficile remains positive on 05/06/2017 Patient reporting pain is better managed Oramorph and hydromorphone. Patient multiple dosing with PRN hydromorphone. 24 hour total of PRN hydromorphone requirements is currently 12 mg of hydromorphone 240 mg oral morphine. Oramorph increased to 100 mg PO TID. Palliative Care was consulted to assist with symptom management and to discuss with the patient/family the benefits and burdens of her current illnesses and the options regarding future care. Function/Cognitive Trajectory . 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 Patient presented to the hospital on 04/25/2017 secondary to intractable back pain. She endorses increase weakness and fatigue; she states her appetite has been poor and she only eats a few bites of the food her daughter prepares. Patient with increased bilateral lower edema. Ultrasound was negative for DVT. Her albumin was 1.9 on admission , lower extremity edema likely secondary to third spacing. Now with sacral wound, wound care following. . (Harini Linares) Review of Systems Constitutional: COMPLAINS OF: Fatigue, Weight loss, Change in appetite ( decreased appetite), Pain, Generalized weakness (back pain) Ears, nose, mouth, throat: DENIES: Hearing loss, Oral lesions, Throat pain Respiratory: DENIES: Shortness of breath Cardiovascular: COMPLAINS OF: Lower Extremity Edema Gastrointestinal: COMPLAINS OF: Diarrhea Genitourinary: COMPLAINS OF: Hematuria Hematologic/Lymphatics: COMPLAINS OF: History of transfusions (Harini Linares) Past Family Social History Coded Allergies: levofloxacin (Unverified Allergy, Unknown, 04/02/17) metronidazole (Unverified Allergy, Unknown, 04/02/17) penicillin G (Unverified Allergy, Unknown, 04/02/17) Past Medical History Cervical cancer in 2006 s/p chemotherapy and radiation with recurrence in 2016 which was treated with radiation. Metastatic adenocarcinoma with unknown primary, stage IV History of bilateral DVTs CKD Severe peripheral neuropathy . Past Surgical History Tonsillectomy Hernia repair BTL Total hysterectomy Left nephrostomy tube placement 04/16/17: Left port tube fracture - left port removed; right port placed . Reported Medications Warfarin 5 Mg Tab 5 Mg PO DAILY Lovenox Inj (Enoxaparin Sodium) 80 mg/0.8 ML Syr 90 Mg SQ DAILY . Current Medications Medications (Trade) Dose Ordered Sig/Erendira Route Start Time Stop Time Status Last Admin (NS Flush) 2 ml UNSCH PRN IV FLUSH 04/25/17 18:15 05/06/17 13:23 (NS Flush) 2 ml BID IV FLUSH 04/25/17 21:00 05/08/17 09:39 (Narcan Inj) 0.4 mg UNSCH PRN IV PUSH 04/25/17 18:15 (Julieta-Colace) 1 tab BID PO 04/26/17 09:00 Future Hold 05/06/17 09:02 Miscellaneous Information 1 Q3D T-DERMAL 04/29/17 09:00 04/29/17 08:54 Pharmacy Profile Note 0 ml @ 0 mls/hr UNSCH OTHER 04/26/17 05:45 Future hold (VANCOMYCIN for oral use only) 125 mg QID PO 04/26/17 09:00 05/08/17 09:38 (Dilaudid Pf Inj) 2 mg Q2HR PRN IV PUSH 04/27/17 15:00 05/08/17 01:52 (Lasix Inj) 20 mg BID@18 IV PUSH 04/30/17 18:00 05/08/17 09:39 (Theragran M Tab) 1 tab DAILY PO 05/02/17 09:00 05/08/17 09:38 (Kytril Inj) 1 mg ONCE ONCE IV PUSH 05/10/17 13:30 05/10/17 13:31 Dexamethasone Sodium Phosphate 20 mg/Sodium Chloride 55 ml @ 165 mls/hr ONCE ONCE IV 05/10/17 13:30 05/10/17 13:49 Cefepime HCl 1000 mg/Sodium Chloride 100 ml @ 200 mls/hr Q12H IV 05/03/17 12:00 05/08/17 00:00 (Tylenol) 325 mg Q4H PRN PO 05/05/17 17:45 Filgrastim 300 mcg/Dextrose 25 ml @ 100 mls/hr DAILY@14 IV 05/07/17 14:00 Future Hold 05/07/17 15:10 (Benadryl) 25 mg Q4H PRN PO 05/07/17 11:30 05/07/17 18:55 (Coumadin) 4 mg DAILY@16 PO 05/08/17 16:00 (Oramorph Sr) 100 mg Q8H PO 05/08/17 18:00 . Family History Mother with hypertension and ESRD, at the age of 67. Father in 2016 from complications related to Alzheimer's Disease Sister has hypertension . Substance Use Tobacco: Patient denies Alcohol: Patient denies Prescription med abuse: Patient denies Illicits: Patient denies . Psychosocial History Patient was born in [place], moving to [place] when she was 10 years old. Patient was living in [place] in 2005 when she was diagnosed with cervical cancer status post hysterectomy, chemotherapy and radiation. Patient subsequently moved to [place] and [place]; she returned to [place] moving to the [facility] in June,. Patient has been to her , Hector, for approximately 32+ years. Together they have 5 children (3 boys and 2 girls). 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 . Spiritual/Cultural Factors Buddhism manuel . (Harini Linares) Living Will: Never completed Health Care Surrogate: Never completed Durable Power of Car Framer: Never completed Today's verbally stated goals: Goals remain aggressive at this time, plan to proceed with second round of chemotherapy this on 05/10/2017. . Family/friends goals: No family/friends present. . Ethical and Legal Issues Patient currently shows insight and judgment related to her medical conditions and therefore capacitated to participate in health care decision making. In the event the patient loses this capacity, [place] statutes state the patient's would be the healthcare proxy decision maker. Patient states she would probably designate her daughter (Mesha) as the healthcare surrogate decision maker but she does not want to because she feels that would upset her . Patient would like to think about her options and will discuss further with palliative care in the upcoming days. . (Harini Linares) Physical Exam Vital Signs Date Time Temp Pulse Resp B/P (MAP) Pulse Ox O2 Delivery O2 Flow Rate FiO2 05/08/17 04:25 99.3 129 19 140/70 (93) 100 05/08/17 00:41 97.6 107 16 119/67 (84) 95 05/07/17 21:30 98.6 103 19 128/67 (87) 100 05/07/17 20:12 109 05/07/17 19:08 98.0 110 18 111/65 100 05/07/17 18:51 99.0 117 20 117/67 100 05/07/17 15:58 99.4 128 18 93/46 99 05/07/17 15:51 99.0 130 16 95/49 99 05/07/17 13:16 98.2 112 20 120/70 (87) 97 . Exam CONSTITUTIONAL/GENERAL: This is a well-appearing, middle-aged female in no acute distress TUBES/LINES/DRAINS: Right VAD, nephrostomy tube, suprapubic catheter SKIN: No jaundice, rashes, or lesions. Steri strips over left chest s/p VAD removal. Skin temperature appropriate. Not diaphoretic. HEAD: Atraumatic. Normocephalic. EYES: Pupils equal and round and reactive. Extraocular motions intact. No scleral icterus. No injection or drainage. Fundi not examined. ENT: Hearing grossly normal. Nose without bleeding or purulent drainage. Throat without visible erythema, exudates, masses, or lesions. NECK: Trachea midline. Supple, nontender. CARDIOVASCULAR: Tachycardic. No murmurs, gallops, or rubs. No JVD. Peripheral pulses symmetric. RESPIRATORY/CHEST: Symmetric, unlabored respirations. Clear to auscultation. Breath sounds equal bilaterally. No wheezes, rales, or rhonchi. GASTROINTESTINAL: Abdomen soft, non-tender, nondistended. No guarding. Bowel sounds present. GENITOURINARY: Without palpable bladder distension. Ostomy tubes and suprapubic catheter in place MUSCULOSKELETAL: Extremities without clubbing or cyanosis. Bilateral edema 2+ in lower extremities from the 2 hip LYMPHATICS: No palpable cervical or supraclavicular adenopathy. NEUROLOGICAL: Awake and alert. Motor and sensory grossly within normal limits. Follows commands. Cognitively sharp. Moves all extremities. PSYCHIATRIC: No obvious anxiety/depression. No apparent hallucinations or other psychotic thought process. (Harini Linares) Diagnostic Tests Laboratory Laboratory Tests Test 05/06/17 05:00 05/06/17 13:20 05/06/17 17:40 05/07/17 04:50 White Blood Count 7.7 TH/MM3 (4.0-11.0) 4.2 TH/MM3 (4.0-11.0) 1.8 TH/MM3 (4.0-11.0) Red Blood Count 3.26 MIL/MM3 (4.00-5.30) 2.72 MIL/MM3 (4.00-5.30) 2.23 MIL/MM3 (4.00-5.30) Hemoglobin 9.3 GM/DL (11.6-15.3) 8.0 GM/DL (11.6-15.3) 6.5 GM/DL (11.6-15.3) Hematocrit 28.5 % (35.0-46.0) 23.5 % (35.0-46.0) 19.6 % (35.0-46.0) Mean Corpuscular Volume 87.5 FL (80.0-100.0) 86.5 FL (80.0-100.0) 88.0 FL (80.0-100.0) Mean Corpuscular Hemoglobin 28.6 PG (27.0-34.0) 29.4 PG (27.0-34.0) 29.0 PG (27.0-34.0) Mean Corpuscular Hemoglobin Concent 32.7 % (32.0-36.0) 33.9 % (32.0-36.0) 32.9 % (32.0-36.0) Red Cell Distribution Width 17.3 % (11.6-17.2) 17.1 % (11.6-17.2) 16.9 % (11.6-17.2) Platelet Count 363 TH/MM3 (150-450) 282 TH/MM3 (150-450) 200 TH/MM3 (150-450) Mean Platelet Volume 8.1 FL (7.0-11.0) 8.2 FL (7.0-11.0) 7.9 FL (7.0-11.0) Neutrophils (%) (Auto) 90.0 % (16.0-70.0) 87.4 % (16.0-70.0) Lymphocytes (%) (Auto) 8.4 % (9.0-44.0) 10.0 % (9.0-44.0) Monocytes (%) (Auto) 0.6 % (0.0-8.0) 1.3 % (0.0-8.0) Eosinophils (%) (Auto) 0.7 % (0.0-4.0) 0.8 % (0.0-4.0) Basophils (%) (Auto) 0.3 % (0.0-2.0) 0.5 % (0.0-2.0) Neutrophils # (Auto) 6.9 TH/MM3 (1.8-7.7) 3.7 TH/MM3 (1.8-7.7) Lymphocytes # (Auto) 0.6 TH/MM3 (1.0-4.8) 0.4 TH/MM3 (1.0-4.8) Monocytes # (Auto) 0.0 TH/MM3 (0-0.9) 0.1 TH/MM3 (0-0.9) Eosinophils # (Auto) 0.1 TH/MM3 (0-0.4) 0.0 TH/MM3 (0-0.4) Basophils # (Auto) 0.0 TH/MM3 (0-0.2) 0.0 TH/MM3 (0-0.2) CBC Comment DIFF FINAL DIFF FINAL AUTO DIFF Differential Comment FINAL DIFF MANUAL Prothrombin Time 21.4 SEC (9.8-11.6) 17.6 SEC (9.8-11.6) Prothromb Time International Ratio 2.1 RATIO 1.7 RATIO Blood Urea Nitrogen 49 MG/DL (7-18) 44 MG/DL (7-18) Creatinine 1.14 MG/DL (0.50-1.00) 1.13 MG/DL (0.50-1.00) Random Glucose 93 MG/DL (74-106) 99 MG/DL (74-106) Total Protein 7.4 GM/DL (6.4-8.2) 6.6 GM/DL (6.4-8.2) Albumin 1.6 GM/DL (3.4-5.0) 1.4 GM/DL (3.4-5.0) Calcium Level 9.6 MG/DL (8.5-10.1) 8.9 MG/DL (8.5-10.1) Alkaline Phosphatase 249 U/L (45-117) 207 U/L (45-117) Aspartate Amino Transf (AST/SGOT) 69 U/L (15-37) 45 U/L (15-37) Alanine Aminotransferase (ALT/SGPT) 31 U/L (10-53) 23 U/L (10-53) Total Bilirubin 0.7 MG/DL (0.2-1.0) 0.4 MG/DL (0.2-1.0) Sodium Level 136 MEQ/L (136-145) 137 MEQ/L (136-145) Potassium Level 4.2 MEQ/L (3.5-5.1) 3.8 MEQ/L (3.5-5.1) Chloride Level 102 MEQ/L (98-107) 102 MEQ/L (98-107) Carbon Dioxide Level 21.6 MEQ/L (21.0-32.0) 25.2 MEQ/L (21.0-32.0) Anion Gap 12 MEQ/L (5-15) 10 MEQ/L (5-15) Estimat Glomerular Filtration Rate 61 ML/MIN (>89) 61 ML/MIN (>89) Stool C. difficile Toxin (PCR) POSITIVE (NEGATIVE) Stl C. difficile Toxin Epiderm 027 PRESUMPTIVE NEGATIVE Differential Total Cells Counted 100 Neutrophils % (Manual) 74 % (16-70) Band Neutrophils % 5 % (0-6) Lymphocytes % 21 % (9-44) Neutrophils # (Manual) 1.4 TH/MM3 (1.8-7.7) Platelet Estimate NORMAL (NORMAL) Platelet Morphology Comment NORMAL (NORMAL) Test 05/07/17 13:13 05/08/17 05:00 White Blood Count 2.6 TH/MM3 (4.0-11.0) 9.2 TH/MM3 (4.0-11.0) Red Blood Count 2.74 MIL/MM3 (4.00-5.30) 3.54 MIL/MM3 (4.00-5.30) Hemoglobin 7.7 GM/DL (11.6-15.3) 10.2 GM/DL (11.6-15.3) Hematocrit 23.9 % (35.0-46.0) 30.6 % (35.0-46.0) Mean Corpuscular Volume 87.2 FL (80.0-100.0) 86.4 FL (80.0-100.0) Mean Corpuscular Hemoglobin 28.2 PG (27.0-34.0) 28.7 PG (27.0-34.0) Mean Corpuscular Hemoglobin Concent 32.3 % (32.0-36.0) 33.3 % (32.0-36.0) Red Cell Distribution Width 17.9 % (11.6-17.2) 16.7 % (11.6-17.2) Platelet Count 241 TH/MM3 (150-450) 208 TH/MM3 (150-450) Mean Platelet Volume 7.7 FL (7.0-11.0) 7.5 FL (7.0-11.0) Neutrophils (%) (Auto) 82.0 % (16.0-70.0) 91.8 % (16.0-70.0) Lymphocytes (%) (Auto) 14.4 % (9.0-44.0) 6.4 % (9.0-44.0) Monocytes (%) (Auto) 2.2 % (0.0-8.0) 1.4 % (0.0-8.0) Eosinophils (%) (Auto) 0.8 % (0.0-4.0) 0.3 % (0.0-4.0) Basophils (%) (Auto) 0.6 % (0.0-2.0) 0.1 % (0.0-2.0) Neutrophils # (Auto) 2.2 TH/MM3 (1.8-7.7) 8.4 TH/MM3 (1.8-7.7) Lymphocytes # (Auto) 0.4 TH/MM3 (1.0-4.8) 0.6 TH/MM3 (1.0-4.8) Monocytes # (Auto) 0.1 TH/MM3 (0-0.9) 0.1 TH/MM3 (0-0.9) Eosinophils # (Auto) 0.0 TH/MM3 (0-0.4) 0.0 TH/MM3 (0-0.4) Basophils # (Auto) 0.0 TH/MM3 (0-0.2) 0.0 TH/MM3 (0-0.2) CBC Comment DIFF FINAL AUTO DIFF Differential Comment FINAL DIFF MANUAL Sickle Cell Screen NEG (NEG) Blood Urea Nitrogen 43 MG/DL (7-18) 44 MG/DL (7-18) Creatinine 1.11 MG/DL (0.50-1.00) 1.21 MG/DL (0.50-1.00) Random Glucose 101 MG/DL (74-106) 119 MG/DL (74-106) Calcium Level 9.0 MG/DL (8.5-10.1) 9.1 MG/DL (8.5-10.1) Sodium Level 138 MEQ/L (136-145) 135 MEQ/L (136-145) Potassium Level 3.8 MEQ/L (3.5-5.1) 3.8 MEQ/L (3.5-5.1) Chloride Level 103 MEQ/L (98-107) 103 MEQ/L (98-107) Carbon Dioxide Level 25.7 MEQ/L (21.0-32.0) 24.9 MEQ/L (21.0-32.0) Anion Gap 9 MEQ/L (5-15) 7 MEQ/L (5-15) Estimat Glomerular Filtration Rate 62 ML/MIN (>89) 57 ML/MIN (>89) Differential Total Cells Counted 100 Neutrophils % (Manual) 80 % (16-70) Band Neutrophils % 16 % (0-6) Lymphocytes % 2 % (9-44) Neutrophils # (Manual) 9.0 TH/MM3 (1.8-7.7) Metamyelocytes 1 % (0-1) Myelocytes 1 % (0-0) Platelet Estimate NORMAL (NORMAL) Platelet Morphology Comment NORMAL (NORMAL) Target Cells 1+ (NORMAL) Ovalocytes 1+ (NORMAL) Prothrombin Time 22.8 SEC (9.8-11.6) Prothromb Time International Ratio 2.3 RATIO Total Protein 7.3 GM/DL (6.4-8.2) Albumin 1.5 GM/DL (3.4-5.0) Alkaline Phosphatase 242 U/L (45-117) Aspartate Amino Transf (AST/SGOT) 50 U/L (15-37) Alanine Aminotransferase (ALT/SGPT) 26 U/L (10-53) Total Bilirubin 0.5 MG/DL (0.2-1.0) (Harini Linares) Result Diagram: 05/08/17 0500 05/08/17 0500 Microbiology Microbiology Date/Time Source Procedure Growth Status 05/05/17 19:10 Blood Peripheral Aerobic Blood Culture - Preliminary NO GROWTH IN 2 DAYS Resulted 05/05/17 19:10 Blood Peripheral Anaerobic Blood Culture - Preliminary NO GROWTH IN 2 DAYS Resulted 05/05/17 19:05 Blood Peripheral Aerobic Blood Culture - Preliminary NO GROWTH IN 2 DAYS Resulted 05/05/17 19:05 Blood Peripheral Anaerobic Blood Culture - Preliminary NO GROWTH IN 2 DAYS Resulted (Harini Linares) Patient/Family Conference Issues Discussed: * Palliative care role, purpose, approach * Additional medical, psychosocial, and spiritual history * Patients general health, functional status, and cognitive changes in the months leading up to the current hospitalization * Patient/family understanding of the current medical problems * Patient/family understanding of prognosis * Patients goals of care as best understood from advance directives and/or conversations and/or values * Current medical treatment options and benefits/burdens of those options * Likely scenarios comparing ongoing aggressive care with a transition to comfort measures only * Questions answered to the best of my ability * Palliative care contact information provided (Harini Linares) Assessment and Plan Disease Oriented Problem List: (1) Hydronephrosis, right (2) Renal insufficiency (3) C. difficile diarrhea (4) Metastatic disease (5) UTI (urinary tract infection) (6) Sacral decubitus ulcer (7) Peripheral neuropathy (8) Bilateral ureteral obstruction (9) Normocytic anemia (10) Normocytic anemia Symptom Scale: (1) Decrease in appetite 0-10 Scale: Unable to quantify (2) Pain 0-10 Scale: 7 Pertinent Non-Medical Issues Psychosocial: Patient was born in [place], moving to [place] when she was 10 years old. Patient was living in [place] in 2005 when she was diagnosed with cervical cancer status post hysterectomy, chemotherapy and radiation. Patient subsequently moved to [place] and [place]; she returned to [place] moving to the [facility] in June,. Patient has been to her , Hector, for approximately 32+ years. Together they have 5 children (3 boys and 2 girls). 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 Spiritual: Buddhism manuel Legal: Patient is currently capacitated to participate in establishing her own medical treatment goals. In the event patient loses capacity, [place] statutes indicate healthcare proxy decision making would fall to the patient's . Ethical issues impacting care: No known ethical issues impacting care at this time. . Important Contacts Hector Dubon, spouse: [phone] Haylee Dubon, daughter: [phone] . 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 She has a history of cervical cancer in 2005. A recent PET scan revealed diffuse disease involving her lungs, abdomen and bones. Patient has also been anemic requiring transfusions as well as iron infusions. Patient admitted 04/25/2017 with intractable back pain. Additionally, patient reports poor appetite and increased weakness/fatigue. Patient started on chemotherapy with Carboplatin, Gemcitabine and Avastin on 05/02/2017. Given patient increasingly debilitated condition, she may not tolerate ongoing palliative chemotherapy. Patient would be hospice appropriate when/if her goals become comfort oriented. . Code Status: Full Code Plan * FULL CODE * Decision-making: Patient currently shows insight and judgment related to her medical conditions and therefore capacitated to participate in health care decision making. In the event the patient loses this capacity, [place] statutes state the patient's would be the healthcare proxy decision maker. Patient states she would probably designate her daughter (Mesha) as the healthcare surrogate decision maker but she does not want to because she feels that would upset her . Patient would like to think about her options and will discuss further with palliative care in the upcoming days. * Goals remain aggressive at this time, and to proceed with second round of chemotherapy this on 05/10/2017. Patient states she is trust that God will continue to take care of her. * Palliative care contact information was provided to the patient. * Discussed patient with bedside nurse and Debra Newell (oncology PA) * Symptom management-pain: Patient c/o lower back pain that is described as aching and currently rated 7 out of 10. Patient reported her pain was previously relieved with IV hydromorphone PRN. Patient was receiving Oramorph 60 mg TID and PRN Dilaudid 2mg IV every 2 hours. Patient requiring multiple of PRN hydromorphone IV; 24 hour total of PRN hydromorphone requirements is currently 12 mg of hydromorphone which is equal to 240 mg oral morphine. Oramorph increased to 100 mg PO TID. Palliative care will continue to monitor PRN requirements and make adjustments as indicated. * Symptom management-decreased appetite: Patient c/o of decreased appetite stating she only eats a few bites of the food her daughter prepares. Dietary has been consulted. Recommendations to consider starting the patient on an appetite stimulant such as Megace or Marinol. However, starting the patient on a low dose of Decadron may improve the patient's appetite, provide symptom management of pain and provide an overall sense of all pain. * Palliative care will continue to follow this patient throughout her hospitalization to establish trust, assist with symptom management and clarification of medical treatment goals. . (Harini Linares) Thank you for the opportunity to participate in the care of Ms. Dubon. (aHrini Linares) Collaborating MD Comments Chart reviewed. Case discussed with palliative care TRUST CLERK. Above TRUST CLERK note reviewed and I concur. . (Javi Fragoso MD) Harini Linares May 08, 2017 12:26 Javi Fragoso MD May 15, 2017 14:50
[2017-05-08] MEDS: WARFARIN SOD 4 MG TAB PO SCH (16:14)
[2017-05-08] MEDS: MORPHINE SULFATE 100 MG CONTROLLED RELEASE TAB PO SCH (17:58)
--- NOTE | 2017-05-08 18:32 | HHI.PR ---
Subjective Remarks Pt feels more energetic today following transfusion of 2 units PRBC. Afebrile. Stools are semi-solid. She says she has always had a rapid heart rate. Objective Vitals Vital Signs Date Time Temp Pulse Resp B/P (MAP) Pulse Ox O2 Delivery O2 Flow Rate FiO2 05/08/17 16:15 98.8 126 16 111/64 (80) 97 05/08/17 12:47 98.9 123 16 111/62 (78) 99 05/08/17 09:33 98.8 127 16 100/55 (70) 97 05/08/17 04:25 99.3 129 19 140/70 (93) 100 05/08/17 00:41 97.6 107 16 119/67 (84) 95 05/07/17 21:30 98.6 103 19 128/67 (87) 100 05/07/17 20:12 109 05/07/17 19:08 98.0 110 18 111/65 100 05/07/17 18:51 99.0 117 20 117/67 100 I/O 05/07/17 05/07/17 05/07/17 05/08/17 05/08/17 05/08/17 07:00 15:00 23:00 07:00 15:00 23:00 Intake Total 680 ml 750 ml 777 ml 100 ml Output Total 700 ml 300 ml 250 ml 1250 ml 425 ml 250 ml Balance -20 ml 450 ml 527 ml -1250 ml -325 ml -250 ml Intake Oral 480 ml 750 ml IV Total 200 ml 127 ml 100 ml Packed Cells 650 ml Output Urine Total 700 ml 550 ml Drainage Total 300 ml 250 ml 700 ml 425 ml 250 ml # Bowel Movements 2 2 1 Result Diagram: 05/08/17 0500 05/08/17 0500 Objective Remarks GENERAL: Weakened appearing female. SKIN: Warm and dry. HEAD: Normocephalic. EYES: No scleral icterus. No injection or drainage. NECK: Supple, trachea midline. No JVD or lymphadenopathy. CARDIOVASCULAR: tachycardia, no gallops, or rubs. RESPIRATORY: Breath sounds equal bilaterally. No accessory muscle use. GASTROINTESTINAL: Abdomen soft, non-tender, nondistended. MUSCULOSKELETAL: No cyanosis, or edema. BACK: Nontender without obvious deformity. No CVA tenderness. EXTREMITIES: no edema A/P Problem List: (1) Cancer associated pain ICD Code: G89.3 - Neoplasm related pain (acute) (chronic) Status: Acute (2) Protein calorie malnutrition ICD Code: E46 - Unspecified protein-calorie malnutrition (3) Diarrhea ICD Code: R19.7 - Diarrhea, unspecified (4) Metastatic disease ICD Code: C79.9 - Secondary malignant neoplasm of unspecified site (5) C. difficile diarrhea ICD Code: A04.72 - Enterocolitis due to Clostridium difficile, not specified as recurrent Assessment and Plan Metastatic Disease Stage IV adenocarcinoma of unknown primary origin Undergoing chemotherapy while she is here Oncology following Cancer Associated Pain Ontomorph 60mg Q8 with Dilaudid 2mg Q2 MRI of lumbar spine did not find spread of cancer there PET scan from earlier shows pervasive disease Tachycardia Chronic, patient declined offer for metoprolol, her BP is rather low in the 110' s Check TSH with a.m. labs Anemia S/p transfusion of 2 units PRBC, pt feels better Following up sickle cell trait screening New Fever Resolved, will follow vitals and blood culture C Diff Diarrhea Improving, more formed stools Continue PO Vancomycin Pseudomonas UTI Continue Cefepime Some associated hematuria Suprapubic catheter present Sacral Ulcer Wound care consult Acute Renal Failure Following BUN/Cr h/o DVT Holding coumadin today given change in anemia Follow INR periodically Tommie Matias MD May 08, 2017 6:32 pm
[2017-05-08 20:32] LABS: AUTOMATED NEUTROPHIL # 9.9 TH/MM3 (1.8-7.7); BASOPHIL % 0.2 % (0.0-2.0); EOSINOPHIL % 0.1 % (0.0-4.0); HEMATOCRIT 27.3 % (35.0-46.0); HEMOGLOBIN 9.1 GM/DL (11.6-15.3); LYMPHOCYTE # 0.8 TH/MM3 (1.0-4.8); MEAN CELL VOLUME 85.7 FL (80.0-100.0); MEAN CORPUSCULAR HEMOGLOBIN 28.5 PG (27.0-34.0); MEAN CORPUSCULAR HGB CONC 33.3 % (32.0-36.0); MEAN PLATELET VOLUME 7.9 FL (7.0-11.0); MONO % 1.4 % (0.0-8.0); MONOCYTE # 0.2 TH/MM3 (0-0.9); NEUT % 91.3 % (16.0-70.0); PLATELET COUNT 174 TH/MM3 (150-450); RED BLOOD COUNT 3.18 MIL/MM3 (4.00-5.30); RED CELL DISTRIBUTION WIDTH 17.1 % (11.6-17.2); WHITE BLOOD COUNT 10.9 TH/MM3 (4.0-11.0)
[2017-05-09] VITALS (11 sets, daily range): BP systolic 108–120; BP diastolic 65–81; PULSE 87–124; RESP 14–18; TEMP 97.4–99.1; O2SAT 94–100
[2017-05-09] MEDS: CEFEPIME INJ 1,000 MG in SODIUM CHLORIDE 0.9% INJ 100 ML IV SCH ×3 (00:15→23:08)
[2017-05-09] MEDS: HYDROmorphone HCL PF 2 MG/ML VIAL IV PUSH PRN ×2 (00:21→23:13)
[2017-05-09] MEDS: MORPHINE SULFATE 100 MG CONTROLLED RELEASE TAB PO SCH ×3 (02:26→18:54)
[2017-05-09 06:04] LABS: INTERNATIONAL NORMALIZED RATIO 1.7 RATIO; PROTHROMBIN TIME - PATIENT 16.7 SEC (9.8-11.6)
[2017-05-09] MEDS: VANCOMYCIN 500 MG VIAL (FOR ORAL USE ONLY) PO SCH ×4 (09:35→23:08)
[2017-05-09] MEDS: MULTIVITAMINS/MINERALS THERAPEUTIC TAB PO SCH (09:35)
[2017-05-09] MEDS: SODIUM CHLORIDE 0.9% FLUSH 10 ML FLUSH IV FLUSH SCH ×2 (09:36→23:09)
[2017-05-09] MEDS: FUROSEMIDE 20 MG/2 ML VIAL IV PUSH SCH ×2 (09:36→18:50)
--- NOTE | 2017-05-09 14:07 | PD.ONC.PN ---
Subjective Subjective Remarks eating breakfast sitting up in chair no nausea or vomiting says pain is under control on going supportive care Objective Data Date Time Temp Pulse Resp B/P (MAP) Pulse Ox O2 Delivery O2 Flow Rate FiO2 05/09/17 13:10 98.0 115 16 120/81 (94) 94 05/09/17 09:29 98.5 107 16 112/68 (83) 99 05/09/17 05:11 98.4 112 18 117/68 (84) 97 05/09/17 04:09 101 05/09/17 03:25 16 05/09/17 00:51 16 05/09/17 00:26 112 05/09/17 00:13 98.4 112 16 110/65 (80) 98 05/08/17 21:50 98.4 115 20 108/63 (78) 100 05/08/17 20:26 126 05/08/17 16:15 98.8 126 16 111/64 (80) 97 05/09/17 05/09/17 05/09/17 07:00 15:00 23:00 Output Total 700 ml Balance -700 ml Result Diagram: 05/08/17195105/08/17 0500 Laboratory Results Laboratory Tests Test 05/08/17 19:52 05/09/17 05:21 White Blood Count 10.9 TH/MM3 Red Blood Count 3.18 MIL/MM3 Hemoglobin 9.1 GM/DL Hematocrit 27.3 % Mean Corpuscular Volume 85.7 FL Mean Corpuscular Hemoglobin 28.5 PG Mean Corpuscular Hemoglobin Concent 33.3 % Red Cell Distribution Width 17.1 % Platelet Count 174 TH/MM3 Mean Platelet Volume 7.9 FL Neutrophils (%) (Auto) 91.3 % Lymphocytes (%) (Auto) 7.0 % Monocytes (%) (Auto) 1.4 % Eosinophils (%) (Auto) 0.1 % Basophils (%) (Auto) 0.2 % Neutrophils # (Auto) 9.9 TH/MM3 Lymphocytes # (Auto) 0.8 TH/MM3 Monocytes # (Auto) 0.2 TH/MM3 Eosinophils # (Auto) 0.0 TH/MM3 Basophils # (Auto) 0.0 TH/MM3 CBC Comment DIFF FINAL Differential Comment Thyroid Stimulating Hormone 3rd Gen 2.210 uIU/ML Prothrombin Time 16.7 SEC Prothromb Time International Ratio 1.7 RATIO Administered Medications Medications (Trade) Dose Ordered Sig/Erendira Route PRN Reason Start Time Stop Time Status Last Admin Dose Admin Sodium Chloride (NS Flush) 2 ml UNSCH PRN IV FLUSH FLUSH AFTER USING IV ACCESS 04/25/17 18:15 05/06/17 13:23 Sodium Chloride (NS Flush) 2 ml BID IV FLUSH 04/25/17 21:00 05/09/17 09:36 Senna/Docusate Sodium (Julieta-Colace) 1 tab BID PO 04/26/17 09:00 Future Hold 05/06/17 09:02 Miscellaneous Information 1 Q3D T-DERMAL 04/29/17 09:00 04/29/17 08:54 Vancomycin HCl (VANCOMYCIN for oral use only) 125 mg QID PO 04/26/17 09:00 05/09/17 13:12 Hydromorphone HCl (Dilaudid Pf Inj) 2 mg Q2HR PRN IV PUSH pain >5 04/27/17 15:00 05/09/17 00:21 Furosemide (Lasix Inj) 20 mg BID@ IV PUSH 04/30/17 18:00 05/09/17 09:36 Multivitamins/ Minerals Therapeutic (Theragran M Tab) 1 tab DAILY PO 05/02/17 09:00 05/09/17 09:35 Cefepime HCl 1000 mg/Sodium Chloride 100 ml @ 200 mls/hr Q12H IV 05/03/17 12:00 05/10/17 11:44 05/09/17 13:12 Filgrastim 300 mcg/Dextrose 25 ml @ 100 mls/hr DAILY@14 IV 05/07/17 14:00 Future Hold 05/07/17 15:10 Diphenhydramine HCl (Benadryl) 25 mg Q4H PRN PO SEE LABEL COMMENTS 05/07/17 11:30 05/07/17 18:55 Warfarin Sodium (Coumadin) 4 mg DAILY@16 PO 05/08/17 16:00 05/08/17 16:14 Morphine Sulfate (Oramorph Sr) 100 mg Q8H PO 05/08/17 18:00 05/09/17 09:37 Objective Remarks GENERAL: Well-nourished, well-developed patient. SKIN: Warm and dry. HEAD: Normocephalic. EYES: No scleral icterus. No injection or drainage. NECK: Supple, trachea midline. No JVD or lymphadenopathy. LYMPHATIC: No adenopathy. CARDIOVASCULAR: Regular rate and rhythm without murmurs. RESPIRATORY: Breath sounds equal bilaterally. No accessory muscle use. GASTROINTESTINAL: Abdomen soft, non-tender, nondistended. EXTREMITIES: No cyanosis, or edema. MUSCULOSKELETAL: Adequate muscle tone. NEUROLOGICAL: No obvious focal deficit. Awake, alert, and oriented x3. PSYCHIATRIC: Appropriate mood and affect; insight and judgment normal. Assessment/Plan Problem List: (1) Metastatic disease ICD Codes: C79.9 - Secondary malignant neoplasm of unspecified site Plan: --s/p chemotherapy with Carboplatin, Gemcitabine, Avastin on 04/22 --history of stage IV adenocarcinoma of unknown primary. --thought to be possibly primary neoplasm of upper digestive origin, such has cholangio, pancreatic or gastric. (2) Normocytic anemia ICD Codes: D64.9 - Anemia, unspecified Plan: --transfuse as needed. (3) Cancer associated pain ICD Codes: G89.3 - Neoplasm related pain (acute) (chronic) Status: Acute Plan: --PET scan shows diffuse disease in lungs, abdomen and skeleton. --currently on ORAMORPH 60mg PO q 8+ Dilaudid 2mg IV q 2 hours (4) DVT (deep venous thrombosis) ICD Codes: I82.409 - Acute embolism and thrombosis of unspecified deep veins of unspecified lower extremity Status: Chronic Plan: --on coumadin (5) C. difficile diarrhea ICD Codes: A04.72 - Enterocolitis due to Clostridium difficile, not specified as recurrent Plan: --on PO Vanco --repeat stool +Cdiff on 05/06 (6) UTI (urinary tract infection) ICD Codes: N39.0 - Urinary tract infection, site not specified Plan: +pseudomonas. on Cefepime (7) Sacral decubitus ulcer ICD Codes: L89.159 - Pressure ulcer of sacral region, unspecified stage Plan: --wound care following. Assessment 51y/o female with stage IV adenocarcinoma, with liver and lung metastasis with unknown primary admitted with intractable pain mostly in lower spine. --was residing in [facility] and according to the patient she received radiation and chemotherapy. Subsequently she moved to [place] and [place]. --recently had DVT in her left lower extremity. was in [place] at that time. has been on anticoagulation. PET scan-->diffuse disease involving her lung, abdomen and bones. history of cervical cancer in 2006 treated with chemotherapy and radiation treatments. Bilateral lower extremity DVT Severe peripheral neuropathy. Plan 1. continue pain meds 2. continue PO Vanco 3. on coumadin 4. monitor CBC/cmp Poor prognosis Problem Qualifiers (1) DVT (deep venous thrombosis): (2) Sacral decubitus ulcer: Qualified Codes: L89.159 - Pressure ulcer of sacral region, unspecified stage Coleman Hester MD May 09, 2017 14:07
--- NOTE | 2017-05-09 15:56 | HHI.PR ---
Subjective Remarks Pt is in a good mood today, more energy following her blood transfusion. No complaints of pain today. Stool remains semi-formed. She came to us from her house. Objective Vitals Vital Signs Date Time Temp Pulse Resp B/P (MAP) Pulse Ox O2 Delivery O2 Flow Rate FiO2 05/09/17 13:10 98.0 115 16 120/81 (94) 94 05/09/17 09:29 98.5 107 16 112/68 (83) 99 05/09/17 05:11 98.4 112 18 117/68 (84) 97 05/09/17 04:09 101 05/09/17 03:25 16 05/09/17 00:51 16 05/09/17 00:26 112 05/09/17 00:13 98.4 112 16 110/65 (80) 98 05/08/17 21:50 98.4 115 20 108/63 (78) 100 05/08/17 20:26 126 05/08/17 16:15 98.8 126 16 111/64 (80) 97 I/O 05/08/17 05/08/17 05/08/17 05/09/17 05/09/17 05/09/17 07:00 15:00 23:00 07:00 15:00 23:00 Intake Total 100 ml 480 ml 100 ml Output Total 1250 ml 425 ml 1175 ml 700 ml Balance -1250 ml -325 ml -695 ml -700 ml 100 ml Intake Oral 480 ml IV Total 100 ml 100 ml Output Urine Total 550 ml 400 ml 300 ml Drainage Total 700 ml 425 ml 775 ml 400 ml # Bowel Movements 1 2 Result Diagram: 05/08/17195105/08/17 0500 Objective Remarks GENERAL: Weakened appearing female. SKIN: Warm and dry. HEAD: Normocephalic. EYES: No scleral icterus. No injection or drainage. NECK: Supple, trachea midline. No JVD or lymphadenopathy. CARDIOVASCULAR: tachycardia, no gallops, or rubs. RESPIRATORY: Breath sounds equal bilaterally. No accessory muscle use. GASTROINTESTINAL: Abdomen soft, non-tender, nondistended. MUSCULOSKELETAL: No cyanosis BACK: Nontender without obvious deformity. No CVA tenderness. EXTREMITIES: significant LE edema bilaterally (chronic) A/P Problem List: (1) Cancer associated pain ICD Code: G89.3 - Neoplasm related pain (acute) (chronic) Status: Acute (2) Protein calorie malnutrition ICD Code: E46 - Unspecified protein-calorie malnutrition (3) Diarrhea ICD Code: R19.7 - Diarrhea, unspecified (4) Metastatic disease ICD Code: C79.9 - Secondary malignant neoplasm of unspecified site (5) C. difficile diarrhea ICD Code: A04.72 - Enterocolitis due to Clostridium difficile, not specified as recurrent Assessment and Plan Metastatic Disease Stage IV adenocarcinoma of unknown primary origin Undergoing chemotherapy while she is here Oncology following Cancer Associated Pain Ontomorph 60mg Q8 with Dilaudid 2mg Q2 MRI of lumbar spine did not find spread of cancer there PET scan from earlier shows pervasive disease Tachycardia Chronic, patient declined offer for metoprolol, her BP is rather low in the 110' s TSH normal Anemia S/p transfusion of 2 units PRBC, pt feels better Negative for sickle cell trait C Diff Diarrhea Improving, more formed stools Continue PO Vancomycin Pseudomonas UTI Continue Cefepime Suprapubic catheter present If Hemoglobin drops again, consider hematuria as source of loss Sacral Ulcer Wound care consult Acute Renal Failure Following BUN/Cr h/o DVT Resume Coumadin Follow INR periodically Tommie Matias MD May 09, 2017 3:56 pm
[2017-05-09] MEDS: WARFARIN SOD 4 MG TAB PO SCH (16:06)
--- NOTE | 2017-05-09 16:18 | PD.WCN.NOT ---
Wound Consult Description: Consult placed for sacrum pressure ulcer per ANDREINA Newell Communicated with: DOMINGO Fontanez Recommendation: Cleanse sacral wound with Normal Saline and soft cloth. Skin prep periwound with Cavilon spray and allow to dry. Apply Calazime skin protectant BID and PRN as patient states wound is better with cream. Additional Information: Spoke with DOMINGO Fontanez regarding patient wound. Patient not seen on [facility]. Followed up with patient via vocera while RN was in patients room. Virginia Mayer [facility] May 09, 2017 16:18
--- NOTE | 2017-05-09 17:16 | HHI.HCPN ---
Reason for visit a. To assist with evaluation and management of symptoms including: pain, decreased appetite b. To assist medical decision maker(s) with: better understanding of current medical conditions; weighing benefits/burdens of medical treatment options; making medical treatment decisions. . Subjective/Interval History Ms. 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 Recent PET scan revealed diffuse disease involving her lungs, abdomen and bones. Patient presented to [facility] on 04/25/2017 with intractable back pain that is unmanaged despite using Percocet at home. Pain was rated 8 out of 10 and described as aching "all over. " Patient reported her pain was previously relieved with IV hydromorphone PRN. Patient complaining of diarrhea 1 week with several episodes of diarrhea daily; patient positive for C. difficile and started on oral vancomycin. Dr. Glass spoke with the patient and her on 04/29/2017. Imaging, tumor involvement and pathology reports from liver biopsies were discussed. The patient and her were surprised and indicated they were unaware that she was terminally ill. Awaiting results of additional tests to help direct further treatment. Dr. Glass informed the patient that any treatments would be palliative in nature and the meaning the term "palliative" was clarified. Patient's os remain aggressive. Patient follows Dr. Hester; chemotherapy with Carboplatin, Gemcitabine and Avastin was started on 05/02/2017. Follow-up visit for symptom management and clarification medical treatment goals. Patient reporting pain is better managed Oramorph and PRN Hydromorphone, however she required multiple doses of PRN hydromorphone for breakthrough pain. Patient was requiring about 12mg IV hydromorphone/24 hours period for breakthrough pain which is equal to 240 mg oral morphine. Oramorph increased to 100 mg PO TID on 05/08/2017 in order to reduce the amount of medications breakthrough pain medication requirements. Patient having generalized and pain in rated 8-9 out of 10, however her PRN requirements have decreased with 4mg IV hydromorphone used in the past 24 hours. Appetite remains poor. Patient reporting formed stools; she remains on oral vancomycin for C. difficile. . Advance Directives Living Will: Never completed Health Care Surrogate: Never completed Durable Power of Electronics Tech: Never completed Objective Vital Signs Date Time Temp Pulse Resp B/P (MAP) Pulse Ox O2 Delivery O2 Flow Rate FiO2 05/09/17 16:32 97.5 109 16 118/68 (85) 05/09/17 13:10 98.0 115 16 120/81 (94) 94 05/09/17 09:29 98.5 107 16 112/68 (83) 99 05/09/17 05:11 98.4 112 18 117/68 (84) 97 05/09/17 04:09 101 05/09/17 03:25 16 05/09/17 00:51 16 05/09/17 00:26 112 05/09/17 00:13 98.4 112 16 110/65 (80) 98 05/08/17 21:50 98.4 115 20 108/63 (78) 100 05/08/17 20:26 126 Intake & Output 05/09/17 05/09/17 07:00 19:00 Intake Total 100 ml Output Total 1225 ml Balance -1225 ml 100 ml IV Total 100 ml Output Urine Total 300 ml Drainage Total 925 ml # Bowel Movements 1 . Physical Exam CONSTITUTIONAL/GENERAL: This is a well-appearing, middle-aged female in no acute distress TUBES/LINES/DRAINS: Right VAD, nephrostomy tube, suprapubic catheter SKIN: . Steri strips over left chest s/p VAD removal. Skin temperature appropriate. Not diaphoretic. HEAD: Atraumatic. Normocephalic. EYES: Pupils equal and round and reactive. Extraocular motions intact. No scleral icterus. No injection or drainage. Fundi not examined. ENT: Hearing grossly normal. Nose without bleeding or purulent drainage. Throat without visible erythema, exudates, masses, or lesions. NECK: Trachea midline. Supple, nontender. CARDIOVASCULAR: Tachycardic. No murmurs, gallops, or rubs. No JVD. Peripheral pulses symmetric. RESPIRATORY/CHEST: Symmetric, unlabored respirations. . Breath sounds diminished bilaterally. No wheezes, rales, or rhonchi. GASTROINTESTINAL: Abdomen soft, non-tender, nondistended. No guarding. Bowel sounds present. GENITOURINARY: Without palpable bladder distension. Ostomy tubes and suprapubic catheter in place MUSCULOSKELETAL: Extremities without clubbing or cyanosis. Bilateral edema 2+ in lower extremities from the toes to hip LYMPHATICS: No palpable cervical or supraclavicular adenopathy. NEUROLOGICAL: Awake and alert. Motor and sensory grossly within normal limits. Follows commands. Cognitively sharp. Moves all extremities. PSYCHIATRIC: No obvious anxiety/depression. No apparent hallucinations or other psychotic thought process. . Diagnostic Tests Laboratory Laboratory Tests Test 05/06/17 17:40 05/07/17 04:50 05/07/17 13:13 05/08/17 05:00 White Blood Count 4.2 TH/MM3 (4.0-11.0) 1.8 TH/MM3 (4.0-11.0) 2.6 TH/MM3 (4.0-11.0) 9.2 TH/MM3 (4.0-11.0) Red Blood Count 2.72 MIL/MM3 (4.00-5.30) 2.23 MIL/MM3 (4.00-5.30) 2.74 MIL/MM3 (4.00-5.30) 3.54 MIL/MM3 (4.00-5.30) Hemoglobin 8.0 GM/DL (11.6-15.3) 6.5 GM/DL (11.6-15.3) 7.7 GM/DL (11.6-15.3) 10.2 GM/DL (11.6-15.3) Hematocrit 23.5 % (35.0-46.0) 19.6 % (35.0-46.0) 23.9 % (35.0-46.0) 30.6 % (35.0-46.0) Mean Corpuscular Volume 86.5 FL (80.0-100.0) 88.0 FL (80.0-100.0) 87.2 FL (80.0-100.0) 86.4 FL (80.0-100.0) Mean Corpuscular Hemoglobin 29.4 PG (27.0-34.0) 29.0 PG (27.0-34.0) 28.2 PG (27.0-34.0) 28.7 PG (27.0-34.0) Mean Corpuscular Hemoglobin Concent 33.9 % (32.0-36.0) 32.9 % (32.0-36.0) 32.3 % (32.0-36.0) 33.3 % (32.0-36.0) Red Cell Distribution Width 17.1 % (11.6-17.2) 16.9 % (11.6-17.2) 17.9 % (11.6-17.2) 16.7 % (11.6-17.2) Platelet Count 282 TH/MM3 (150-450) 200 TH/MM3 (150-450) 241 TH/MM3 (150-450) 208 TH/MM3 (150-450) Mean Platelet Volume 8.2 FL (7.0-11.0) 7.9 FL (7.0-11.0) 7.7 FL (7.0-11.0) 7.5 FL (7.0-11.0) Neutrophils (%) (Auto) 87.4 % (16.0-70.0) 82.0 % (16.0-70.0) 91.8 % (16.0-70.0) Lymphocytes (%) (Auto) 10.0 % (9.0-44.0) 14.4 % (9.0-44.0) 6.4 % (9.0-44.0) Monocytes (%) (Auto) 1.3 % (0.0-8.0) 2.2 % (0.0-8.0) 1.4 % (0.0-8.0) Eosinophils (%) (Auto) 0.8 % (0.0-4.0) 0.8 % (0.0-4.0) 0.3 % (0.0-4.0) Basophils (%) (Auto) 0.5 % (0.0-2.0) 0.6 % (0.0-2.0) 0.1 % (0.0-2.0) Neutrophils # (Auto) 3.7 TH/MM3 (1.8-7.7) 2.2 TH/MM3 (1.8-7.7) 8.4 TH/MM3 (1.8-7.7) Lymphocytes # (Auto) 0.4 TH/MM3 (1.0-4.8) 0.4 TH/MM3 (1.0-4.8) 0.6 TH/MM3 (1.0-4.8) Monocytes # (Auto) 0.1 TH/MM3 (0-0.9) 0.1 TH/MM3 (0-0.9) 0.1 TH/MM3 (0-0.9) Eosinophils # (Auto) 0.0 TH/MM3 (0-0.4) 0.0 TH/MM3 (0-0.4) 0.0 TH/MM3 (0-0.4) Basophils # (Auto) 0.0 TH/MM3 (0-0.2) 0.0 TH/MM3 (0-0.2) 0.0 TH/MM3 (0-0.2) CBC Comment DIFF FINAL AUTO DIFF DIFF FINAL AUTO DIFF Differential Comment FINAL DIFF MANUAL FINAL DIFF MANUAL Differential Total Cells Counted 100 100 Neutrophils % (Manual) 74 % (16-70) 80 % (16-70) Band Neutrophils % 5 % (0-6) 16 % (0-6) Lymphocytes % 21 % (9-44) 2 % (9-44) Neutrophils # (Manual) 1.4 TH/MM3 (1.8-7.7) 9.0 TH/MM3 (1.8-7.7) Platelet Estimate NORMAL (NORMAL) NORMAL (NORMAL) Platelet Morphology Comment NORMAL (NORMAL) NORMAL (NORMAL) Prothrombin Time 17.6 SEC (9.8-11.6) 22.8 SEC (9.8-11.6) Prothromb Time International Ratio 1.7 RATIO 2.3 RATIO Blood Urea Nitrogen 44 MG/DL (7-18) 43 MG/DL (7-18) 44 MG/DL (7-18) Creatinine 1.13 MG/DL (0.50-1.00) 1.11 MG/DL (0.50-1.00) 1.21 MG/DL (0.50-1.00) Random Glucose 99 MG/DL (74-106) 101 MG/DL (74-106) 119 MG/DL (74-106) Total Protein 6.6 GM/DL (6.4-8.2) 7.3 GM/DL (6.4-8.2) Albumin 1.4 GM/DL (3.4-5.0) 1.5 GM/DL (3.4-5.0) Calcium Level 8.9 MG/DL (8.5-10.1) 9.0 MG/DL (8.5-10.1) 9.1 MG/DL (8.5-10.1) Alkaline Phosphatase 207 U/L (45-117) 242 U/L (45-117) Aspartate Amino Transf (AST/SGOT) 45 U/L (15-37) 50 U/L (15-37) Alanine Aminotransferase (ALT/SGPT) 23 U/L (10-53) 26 U/L (10-53) Total Bilirubin 0.4 MG/DL (0.2-1.0) 0.5 MG/DL (0.2-1.0) Sodium Level 137 MEQ/L (136-145) 138 MEQ/L (136-145) 135 MEQ/L (136-145) Potassium Level 3.8 MEQ/L (3.5-5.1) 3.8 MEQ/L (3.5-5.1) 3.8 MEQ/L (3.5-5.1) Chloride Level 102 MEQ/L (98-107) 103 MEQ/L (98-107) 103 MEQ/L (98-107) Carbon Dioxide Level 25.2 MEQ/L (21.0-32.0) 25.7 MEQ/L (21.0-32.0) 24.9 MEQ/L (21.0-32.0) Anion Gap 10 MEQ/L (5-15) 9 MEQ/L (5-15) 7 MEQ/L (5-15) Estimat Glomerular Filtration Rate 61 ML/MIN (>89) 62 ML/MIN (>89) 57 ML/MIN (>89) Sickle Cell Screen NEG (NEG) Metamyelocytes 1 % (0-1) Myelocytes 1 % (0-0) Target Cells 1+ (NORMAL) Ovalocytes 1+ (NORMAL) Test 05/08/17 19:52 05/09/17 05:21 White Blood Count 10.9 TH/MM3 (4.0-11.0) Red Blood Count 3.18 MIL/MM3 (4.00-5.30) Hemoglobin 9.1 GM/DL (11.6-15.3) Hematocrit 27.3 % (35.0-46.0) Mean Corpuscular Volume 85.7 FL (80.0-100.0) Mean Corpuscular Hemoglobin 28.5 PG (27.0-34.0) Mean Corpuscular Hemoglobin Concent 33.3 % (32.0-36.0) Red Cell Distribution Width 17.1 % (11.6-17.2) Platelet Count 174 TH/MM3 (150-450) Mean Platelet Volume 7.9 FL (7.0-11.0) Neutrophils (%) (Auto) 91.3 % (16.0-70.0) Lymphocytes (%) (Auto) 7.0 % (9.0-44.0) Monocytes (%) (Auto) 1.4 % (0.0-8.0) Eosinophils (%) (Auto) 0.1 % (0.0-4.0) Basophils (%) (Auto) 0.2 % (0.0-2.0) Neutrophils # (Auto) 9.9 TH/MM3 (1.8-7.7) Lymphocytes # (Auto) 0.8 TH/MM3 (1.0-4.8) Monocytes # (Auto) 0.2 TH/MM3 (0-0.9) Eosinophils # (Auto) 0.0 TH/MM3 (0-0.4) Basophils # (Auto) 0.0 TH/MM3 (0-0.2) CBC Comment DIFF FINAL Differential Comment Thyroid Stimulating Hormone 3rd Gen 2.210 uIU/ML (0.358-3.740) Prothrombin Time 16.7 SEC (9.8-11.6) Prothromb Time International Ratio 1.7 RATIO . Result Diagram: 05/08/17195105/08/17 0500 Assessment and Plan Disease Oriented Problem List: (1) Hydronephrosis, right (2) Renal insufficiency (3) C. difficile diarrhea (4) Metastatic disease (5) UTI (urinary tract infection) (6) Sacral decubitus ulcer (7) Peripheral neuropathy (8) Bilateral ureteral obstruction (9) Normocytic anemia (10) Normocytic anemia Symptom Scale: (1) Decrease in appetite 0-10 Scale: Unable to quantify (2) Pain 0-10 Scale: 7 Pertinent Non-Medical Issues Psychosocial: Patient was born in [place], moving to [place] when she was 10 years old. Patient was living in [place] in 2005 when she was diagnosed with cervical cancer status post hysterectomy, chemotherapy and radiation. Patient subsequently moved to [place] and [place]; she returned to [place] moving to the [facility] in June,. Patient has been to her , Hector, for approximately 32+ years. Together they have 5 children (3 boys and 2 girls). 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 Spiritual: Episcopalian manuel Legal: Patient is currently capacitated to participate in establishing her own medical treatment goals. In the event patient loses capacity, [place] statutes indicate healthcare proxy decision making would fall to the patient's . Ethical issues impacting care: No known ethical issues impacting care at this time. . Important Contacts Hector Dubon, spouse: [phone] Haylee Dubon, daughter: [phone] . 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 She has a history of cervical cancer in 2005. A recent PET scan revealed diffuse disease involving her lungs, abdomen and bones. Patient has also been anemic requiring transfusions as well as iron infusions. Patient admitted 04/25/2017 with intractable back pain. Additionally, patient reports poor appetite and increased weakness/fatigue. Patient started on chemotherapy with Carboplatin, Gemcitabine and Avastin on 05/02/2017. Given patient increasingly debilitated condition, she may not tolerate ongoing palliative chemotherapy. Patient would be hospice appropriate when/if her goals become comfort oriented. . Code Status: Full Code Plan * FULL CODE * Decision-making: Patient currently shows insight and judgment related to her medical conditions and therefore capacitated to participate in health care decision making. In the event the patient loses this capacity, [place] statutes state the patient's would be the healthcare proxy decision maker. Patient states she would probably designate her daughter (Mesha) as the healthcare surrogate decision maker but she does not want to because she feels that would upset her . Patient would like to think about her options and will discuss further with palliative care in the upcoming days. * Goals remain aggressive at this time, plan to proceed with second round of chemotherapy this on 05/10/2017. Patient states she is trust that God will continue to take care of her. * Symptom management-pain: Patient reporting pain is better managed Oramorph and PRN Hydromorphone, however she required multiple doses of PRN hydromorphone for breakthrough pain. Patient was requiring about 12mg IV hydromorphone/24 hours period for breakthrough pain which is equal to 240 mg oral morphine. Oramorph increased to 100 mg PO TID on 05/08/2017 in order to reduce the amount of medications breakthrough pain medication requirements. Patient having generalized and pain in rated 8-9 out of 10, however her PRN requirements have decreased with 4mg IV hydromorphone used in the past 24 hours.Palliative care will continue to monitor PRN requirements and make adjustments as indicated. * Symptom management-decreased appetite: Patient c/o of decreased appetite stating she only eats a few bites of the food her daughter prepares. Dietary has been consulted. Recommendations to consider starting the patient on an appetite stimulant such as Megace or Marinol. However, starting the patient on a low dose of Decadron may improve the patient's appetite, provide symptom management of pain and provide an overall sense of all pain. * Palliative care will continue to follow this patient throughout her hospitalization to establish trust, assist with symptom management and clarification of medical treatment goals. . Attestation To help prompt me to consider important information that might be impacting today's encounter and assessment, information from prior notes written by myself or my colleagues may have been "brought forward" into today's note. My signature on this note, however, is an attestation that I personally performed the exam, history, and/or decision-making noted today, and, unless otherwise indicated, the interactions with patient, family, and staff as well as the review of records all occurred today. I also attest that the listed assessment and stated plan reflect my best clinical judgment today based on the combination of historical information, prior notes, and today's exam/ interactions. When time spent is documented, it refers only to time spent today by the signer, or if indicated, combined time spent today by collaborating physician/nurse practitioner. . Harini Linares May 09, 2017 17:16
[2017-05-10] VITALS (11 sets, daily range): BP systolic 100–118; BP diastolic 62–69; PULSE 66–120; RESP 14–16; TEMP 97.8–99.8; O2SAT 98–100
[2017-05-10] MEDS: MORPHINE SULFATE 100 MG CONTROLLED RELEASE TAB PO SCH ×3 (02:21→17:30)
[2017-05-10 06:07] LABS: INTERNATIONAL NORMALIZED RATIO 1.7 RATIO; PROTHROMBIN TIME - PATIENT 16.7 SEC (9.8-11.6)
[2017-05-10] MEDS: SODIUM CHLORIDE 0.9% FLUSH 10 ML FLUSH IV FLUSH SCH ×2 (10:16→21:32)
[2017-05-10] MEDS: FUROSEMIDE 20 MG/2 ML VIAL IV PUSH SCH ×2 (10:16→17:29)
[2017-05-10] MEDS: MULTIVITAMINS/MINERALS THERAPEUTIC TAB PO SCH (10:17)
[2017-05-10] MEDS: VANCOMYCIN 500 MG VIAL (FOR ORAL USE ONLY) PO SCH ×4 (10:17→21:32)
--- NOTE | 2017-05-10 13:10 | PD.ONC.PN ---
Subjective Subjective Remarks Patient seen and examined, vital signs, labs and medications reviewed. Previous medical records including pathology from liver biopsy, molecular testing, initial staging CT scan of the chest abdomen pelvis from March 2017 was also reviewed. Treatment history including recent chemotherapeutic interventions were reviewed. Subjectively; the patient reports having continued diarrhea, she tells me the stool has more form to it today. She also feels her pain is improved and that she has needed fewer doses of breakthrough coverage with hydromorphone. Objective Data Date Time Temp Pulse Resp B/P (MAP) Pulse Ox O2 Delivery O2 Flow Rate FiO2 05/10/17 10:26 99.4 115 16 112/64 (80) 98 05/10/17 06:00 101 05/10/17 05:00 106 05/10/17 04:00 104 05/10/17 04:00 99.4 118 14 118/68 (85) 100 05/10/17 03:00 112 05/10/17 02:00 104 05/10/17 01:00 102 05/10/17 00:00 109 05/10/17 00:00 99.8 120 14 117/69 (85) 100 05/09/17 23:00 124 05/09/17 22:00 122 05/09/17 21:00 122 05/09/17 20:00 114 05/09/17 20:00 99.1 109 14 108/66 (80) 100 05/09/17 16:32 97.5 109 16 118/68 (85) 05/09/17 13:10 98.0 115 16 120/81 (94) 94 05/10/17 05/10/17 05/10/17 07:00 15:00 23:00 Output Total 450 ml Balance -450 ml Result Diagram: 05/08/17195105/08/17 0500 Laboratory Results Laboratory Tests Test 05/10/17 05:35 Prothrombin Time 16.7 SEC Prothromb Time International Ratio 1.7 RATIO Administered Medications Medications (Trade) Dose Ordered Sig/Erendira Route PRN Reason Start Time Stop Time Status Last Admin Dose Admin Sodium Chloride (NS Flush) 2 ml UNSCH PRN IV FLUSH FLUSH AFTER USING IV ACCESS 04/25/17 18:15 05/06/17 13:23 Sodium Chloride (NS Flush) 2 ml BID IV FLUSH 04/25/17 21:00 05/10/17 10:16 Senna/Docusate Sodium (Juleita-Colace) 1 tab BID PO 04/26/17 09:00 Future Hold 05/06/17 09:02 Miscellaneous Information 1 Q3D T-DERMAL 04/29/17 09:00 04/29/17 08:54 Vancomycin HCl (VANCOMYCIN for oral use only) 125 mg QID PO 04/26/17 09:00 05/10/17 10:17 Hydromorphone HCl (Dilaudid Pf Inj) 2 mg Q2HR PRN IV PUSH pain >5 04/27/17 15:00 05/09/17 23:13 Furosemide (Lasix Inj) 20 mg BID@18 IV PUSH 04/30/17 18:00 05/10/17 10:16 Multivitamins/ Minerals Therapeutic (Theragran M Tab) 1 tab DAILY PO 05/02/17 09:00 05/10/17 10:17 Filgrastim 300 mcg/Dextrose 25 ml @ 100 mls/hr DAILY@14 IV 05/07/17 14:00 Future Hold 05/07/17 15:10 Diphenhydramine HCl (Benadryl) 25 mg Q4H PRN PO SEE LABEL COMMENTS 05/07/17 11:30 05/07/17 18:55 Warfarin Sodium (Coumadin) 4 mg DAILY@16 PO 05/08/17 16:00 05/09/17 16:06 Morphine Sulfate (Oramorph Sr) 100 mg Q8H PO 05/08/17 18:00 05/10/17 10:17 Objective Remarks GENERAL: Middle-aged female, sitting on bedside commode, she appears to be distress. Speaks to me in full sentences she is alert and oriented 3. SKIN: Warm and dry. HEAD: Normocephalic. EYES: No scleral icterus. No injection or drainage. NECK: Supple, trachea midline. No JVD or lymphadenopathy. LYMPHATIC: No adenopathy. CARDIOVASCULAR: Regular rate and rhythm without murmurs. RESPIRATORY: Breath sounds equal bilaterally. No accessory muscle use. GASTROINTESTINAL: Thin soft, nontender nondistended, she has bilateral percutaneous nephrostomy tubes draining clear straw colored urine into drainage bags. EXTREMITIES: No cyanosis, or edema. MUSCULOSKELETAL: Adequate muscle tone. NEUROLOGICAL: No obvious focal deficit. Awake, alert, and oriented x3. PSYCHIATRIC: Appropriate mood and affect; insight and judgment normal. Assessment/Plan Problem List: (1) Metastatic disease ICD Codes: C79.9 - Secondary malignant neoplasm of unspecified site Plan: Mrs. Dubon reports a history of cancer of the uterus/cervix diagnosed in 2005, she was living in [place] at that time and underwent biopsy and treatment with chemotherapy and radiation at [facility]. Records will be requested from there. She remained in remission until 2014, she developed lower abdominal pain and was found to have a mass in the uterus, she underwent hysterectomy followed by chemotherapy at [facility] in [place], [place]. Since then she has been found to have what appears to be recurrent disease with multifocal liver metastases as well as multifocal pulmonary metastases. She has chronic ureteric obstruction likely due to her previous gynecologic malignancies and radiation and surgery rendered for treatment of this diagnosis. Now on treatment for metastatic adenocarcinoma; based on her clinical history, previous history of relapsing recurrent gynecologic malignancy I suspect she now has metastatic adenocarcinoma of the uterine origin or at least gynecologic origin. She is on carboplatin based therapy with Avastin which is appropriate treatment. Patient tells me she has tolerated first dose of chemotherapy without significant difficulties and is looking forward to day 8 gemcitabine today. (2) Normocytic anemia ICD Codes: D64.9 - Anemia, unspecified Plan: --transfuse as needed. (3) Cancer associated pain ICD Codes: G89.3 - Neoplasm related pain (acute) (chronic) Status: Acute Plan: --PET scan shows diffuse disease in lungs, abdomen and skeleton. --currently on ORAMORPH 60mg PO q 8+ Dilaudid 2mg IV q 2 hours (4) DVT (deep venous thrombosis) ICD Codes: I82.409 - Acute embolism and thrombosis of unspecified deep veins of unspecified lower extremity Status: Chronic Plan: --on coumadin (5) C. difficile diarrhea ICD Codes: A04.72 - Enterocolitis due to Clostridium difficile, not specified as recurrent Plan: --on PO Vanco --repeat stool +Cdiff on 05/06 (6) UTI (urinary tract infection) ICD Codes: N39.0 - Urinary tract infection, site not specified Plan: +pseudomonas. on Cefepime (7) Sacral decubitus ulcer ICD Codes: L89.159 - Pressure ulcer of sacral region, unspecified stage Plan: --wound care following. Assessment 51y/o female with stage IV adenocarcinoma, with liver and lung metastasis with unknown primary admitted with intractable pain mostly in lower spine. --was residing in [facility] and according to the patient she received radiation and chemotherapy. Subsequently she moved to [place] and [place]. --recently had DVT in her left lower extremity. was in [place] at that time. has been on anticoagulation. PET scan-->diffuse disease involving her lung, abdomen and bones. history of cervical cancer in 2006 treated with chemotherapy and radiation treatments. Bilateral lower extremity DVT Severe peripheral neuropathy. Plan 1. Proceed with day 8 gemcitabine today. Continue oral vancomycin for C. difficile colitis. Continue pain control with combination opioids. Anticoagulation for recent diagnosis of DVTs. I will request her records from [facility] in [place]. We may need to compare slides to further identify a primary site of her disease. Problem Qualifiers (1) DVT (deep venous thrombosis): (2) Sacral decubitus ulcer: Qualified Codes: L89.159 - Pressure ulcer of sacral region, unspecified stage Chet James MD May 10, 2017 13:10
[2017-05-10] MEDS ORDERED: GRANISETRON HCL 1 MG/ML VIAL IV PUSH ONE ×2 (13:30→14:30)
[2017-05-10] MEDS ORDERED: DEXAMETHASONE INJ 20 MG in SODIUM CHLORIDE 0.9% INJ 50 ML IV ONE ×2 (13:30→14:30)
[2017-05-10] MEDS ORDERED: SODIUM CHLOR 0.9% 250 ML INJ 250 ML IV SCH (13:45)
[2017-05-10] MEDS ORDERED: GEMCITABINE IV ONE (15:00)
[2017-05-10] MEDS ORDERED: SODIUM CHLOR 0.9% IV ONE (15:00)
--- NOTE | 2017-05-10 15:34 | HHI.PR ---
Subjective Remarks Pt currently eating lunch, states appetite seems improved. no nausea or vomiting. states her stools are forming. so far one BM today. no chest pain or sob Objective Vitals Vital Signs Date Time Temp Pulse Resp B/P (MAP) Pulse Ox O2 Delivery O2 Flow Rate FiO2 05/10/17 10:26 99.4 115 16 112/64 (80) 98 05/10/17 06:00 101 05/10/17 05:00 106 05/10/17 04:00 104 05/10/17 04:00 99.4 118 14 118/68 (85) 100 05/10/17 03:00 112 05/10/17 02:00 104 05/10/17 01:00 102 05/10/17 00:00 109 05/10/17 00:00 99.8 120 14 117/69 (85) 100 05/09/17 23:00 124 05/09/17 22:00 122 05/09/17 21:00 122 05/09/17 20:00 114 05/09/17 20:00 99.1 109 14 108/66 (80) 100 05/09/17 16:32 97.5 109 16 118/68 (85) I/O 05/09/17 05/09/17 05/09/17 05/10/17 05/10/17 05/10/17 07:00 15:00 23:00 07:00 15:00 23:00 Intake Total 100 ml 480 ml Output Total 700 ml 1400 ml 450 ml Balance -700 ml 100 ml -920 ml -450 ml Intake Oral 480 ml IV Total 100 ml Output Urine Total 300 ml 325 ml 300 ml Drainage Total 400 ml 1075 ml 150 ml # Bowel Movements 1 Result Diagram: 05/08/17195105/08/17 0500 Imaging Last Impressions Tube Placement X-Ray 04/27/17 0000 Signed Impressions: Service Date/Time: Thursday, April 27, 2017 17:54 - CONCLUSION: Uncomplicated suprapubic catheter placement. Boubacar Vicente MD Sacrum/Coccyx MRI 04/27/17 0000 Signed Impressions: Service Date/Time: Thursday, April 27, 2017 22:00 - CONCLUSION: Marrow signal changes within the bony elements of the sacrum and ramo potentially related to previous radiation. Soft tissue elements significantly obscured by streak associated with embolization coils and other foreign components in the pelvis. David Miranda MD Lumbar Spine MRI 04/27/17 0000 Signed Impressions: Service Date/Time: Thursday, April 27, 2017 22:00 - CONCLUSION: No acute findings in the lumbar spine. Daivd Miranda MD Chest X-Ray 04/25/17 1310 Signed Impressions: Service Date/Time: Tuesday, April 25, 2017 13:33 - CONCLUSION: 1. Multiple bilateral pulmonary nodules concerning for metastatic disease. 2. Interval removal of the left subclavian Xdcuix-u-Zuqb catheter and placement of a right subclavian Vmrbbx-x-Kgpj catheter. No pneumothorax. 3. Heart size is normal. No superimposed acute infiltrate. Kwabena Palmer MD Lower Extremity Ultrasound 04/25/17 0000 Signed Impressions: Service Date/Time: Tuesday, April 25, 2017 13:34 - CONCLUSION: 1. Enlarged bilateral inguinal lymph nodes. The largest on the right measures 5 cm in diameter. Nodes are suspicious. 2. No DVT. Kwabena Palmer MD Objective Remarks GENERAL: AA female eating lunch EYES: EOMI NECK: Supple, trachea midline. CARDIOVASCULAR: tachycardia, no gallops RESPIRATORY: Breath sounds equal bilaterally. No accessory muscle use. GASTROINTESTINAL: Abdomen soft, non-tender, nondistended. EXTREMITIES: significant LE edema bilaterally (chronic) A/P Problem List: (1) Cancer associated pain ICD Code: G89.3 - Neoplasm related pain (acute) (chronic) Status: Acute (2) Protein calorie malnutrition ICD Code: E46 - Unspecified protein-calorie malnutrition (3) Diarrhea ICD Code: R19.7 - Diarrhea, unspecified (4) Metastatic disease ICD Code: C79.9 - Secondary malignant neoplasm of unspecified site (5) C. difficile diarrhea ICD Code: A04.72 - Enterocolitis due to Clostridium difficile, not specified as recurrent Assessment and Plan Metastatic Disease Stage IV adenocarcinoma of unknown primary origin Undergoing chemotherapy while she is here Oncology following. appreciate assistance. Cancer Associated Pain Ontomorph 60mg Q8 with Dilaudid 2mg Q2 MRI of lumbar spine did not find spread of cancer there PET scan from earlier shows pervasive disease Tachycardia Chronic, patient declined offer for metoprolol, her BP is rather low in the 110' s TSH normal Anemia S/p transfusion of 2 units PRBC, pt feels better Negative for sickle cell trait C Diff Diarrhea Improving, more formed stools and only one BM today Continue PO Vancomycin Pseudomonas UTI Continue Cefepime Suprapubic catheter present If Hemoglobin drops again, consider hematuria as source of loss. Sacral Ulcer Wound care following. Acute Renal Failure Following BUN/Cr. No new lab. check in AM h/o DVT on Coumadin pharmacy consult in place Discharge Planning d/c pending further work-up and clinical improvement. check AM labs Leah Oconnell MD May 10, 2017 15:34
[2017-05-10] MEDS: WARFARIN SOD 4 MG TAB PO SCH (15:52)
[2017-05-10] MEDS: HYDROmorphone HCL PF 2 MG/ML VIAL IV PUSH PRN ×2 (17:30→21:50)
[2017-05-11] VITALS (8 sets, daily range): BP systolic 102–130; BP diastolic 63–83; PULSE 82–131; RESP 14–19; TEMP 96.3–99.8; O2SAT 96–100
[2017-05-11] MEDS ORDERED: ALTEPLASE RECOMBINANT 2 MG VIAL IV PRN (01:45)
[2017-05-11] MEDS: MORPHINE SULFATE 100 MG CONTROLLED RELEASE TAB PO SCH ×3 (02:23→18:37)
[2017-05-11] MEDS ORDERED: GRANISETRON HCL 1 MG/ML VIAL IV PRN (03:45)
[2017-05-11] MEDS: FUROSEMIDE 20 MG/2 ML VIAL IV PUSH SCH ×2 (08:34→18:36)
[2017-05-11] MEDS: VANCOMYCIN 500 MG VIAL (FOR ORAL USE ONLY) PO SCH ×4 (08:34→21:34)
[2017-05-11] MEDS: MULTIVITAMINS/MINERALS THERAPEUTIC TAB PO SCH (08:34)
[2017-05-11] MEDS: SODIUM CHLORIDE 0.9% FLUSH 10 ML FLUSH IV FLUSH SCH ×2 (08:35→21:34)
[2017-05-11] MEDS: REMOVE OLD DURAGESIC (FENTANYL) PATCH T-DERMAL SCH (09:00)
--- NOTE | 2017-05-11 10:34 | HHI.HCPN ---
Met with Ms. Dubon for follow-up palliative care visit and support. She is currently sitting up in bedside chair eating breakfast. She is awake, alert, and able to make her needs known. Appears to be in better spirits than previous visit. Nurse in providing care and assisting lab with blood draw. Ms. Dubon reports better pain control and verbalizes she is not having to use as much in the way of breakthrough meds for pain. She tells me her appetite is improving. Goals remain aggressive. She denies any questions or concerns at this time. Palliative care will continue to follow throughout hospitalization. Haylee DeL a Rosa, LENS GENERATING MACHINE TENDER May 11, 2017 10:34
[2017-05-11 10:44] LABS: AUTOMATED NEUTROPHIL # 3.9 TH/MM3 (1.8-7.7); BASOPHIL % 0.1 % (0.0-2.0); HEMATOCRIT 29.6 % (35.0-46.0); HEMOGLOBIN 9.8 GM/DL (11.6-15.3); LYMPH % 5.3 % (9.0-44.0); LYMPHOCYTE # 0.2 TH/MM3 (1.0-4.8); MEAN CORPUSCULAR HEMOGLOBIN 28.7 PG (27.0-34.0); MONO % 2.2 % (0.0-8.0); MONOCYTE # 0.1 TH/MM3 (0-0.9); NEUT % 92.4 % (16.0-70.0); PLATELET COUNT 89 TH/MM3 (150-450); RED CELL DISTRIBUTION WIDTH 16.9 % (11.6-17.2); WHITE BLOOD COUNT 4.2 TH/MM3 (4.0-11.0)
[2017-05-11 10:50] LABS: INTERNATIONAL NORMALIZED RATIO 1.6 RATIO; PROTHROMBIN TIME - PATIENT 16.5 SEC (9.8-11.6)
[2017-05-11 10:57] LABS: BICARBONATE 27.3 MEQ/L (21.0-32.0); CALCIUM 9.2 MG/DL (8.5-10.1); CREATININE 1.01 MG/DL (0.50-1.00)
--- NOTE | 2017-05-11 16:17 | HHI.PR ---
Subjective Remarks Pt has no complaints today. only had 2 BMs today and formed. no nausea or vomiting Objective Vitals Vital Signs Date Time Temp Pulse Resp B/P (MAP) Pulse Ox O2 Delivery O2 Flow Rate FiO2 05/11/17 13:16 97.3 100 14 105/65 (78) 100 05/11/17 08:42 97.1 104 14 130/83 (99) 100 05/11/17 04:21 99.1 117 18 104/63 (77) 97 05/11/17 00:38 99.8 131 17 113/69 (84) 96 05/10/17 20:39 66 05/10/17 16:30 99.8 110 16 100/62 (75) 100 I/O 05/10/17 05/10/17 05/10/17 05/11/17 05/11/17 05/11/17 07:00 15:00 23:00 07:00 15:00 23:00 Intake Total 480 ml Output Total 450 ml 1250 ml Balance -450 ml -770 ml Intake Oral 480 ml Output Urine Total 300 ml 600 ml Drainage Total 150 ml 650 ml Result Diagram: 05/11/17 1031 05/11/17 1021 Imaging Last Impressions Tube Placement X-Ray 04/27/17 0000 Signed Impressions: Service Date/Time: Thursday, April 27, 2017 17:54 - CONCLUSION: Uncomplicated suprapubic catheter placement. Boubacar Vicente MD Sacrum/Coccyx MRI 04/27/17 0000 Signed Impressions: Service Date/Time: Thursday, April 27, 2017 22:00 - CONCLUSION: Marrow signal changes within the bony elements of the sacrum and ramo potentially related to previous radiation. Soft tissue elements significantly obscured by streak associated with embolization coils and other foreign components in the pelvis. David Miranda MD Lumbar Spine MRI 04/27/17 0000 Signed Impressions: Service Date/Time: Thursday, April 27, 2017 22:00 - CONCLUSION: No acute findings in the lumbar spine. David Miranda MD Chest X-Ray 04/25/17 1310 Signed Impressions: Service Date/Time: Tuesday, April 25, 2017 13:33 - CONCLUSION: 1. Multiple bilateral pulmonary nodules concerning for metastatic disease. 2. Interval removal of the left subclavian Zxszvr-g-Wcde catheter and placement of a right subclavian Fncrns-f-Zhlo catheter. No pneumothorax. 3. Heart size is normal. No superimposed acute infiltrate. Kwabena Palmer MD Lower Extremity Ultrasound 04/25/17 0000 Signed Impressions: Service Date/Time: Tuesday, April 25, 2017 13:34 - CONCLUSION: 1. Enlarged bilateral inguinal lymph nodes. The largest on the right measures 5 cm in diameter. Nodes are suspicious. 2. No DVT. Kwabena Palmer MD Objective Remarks GENERAL: AA female sitting EYES: EOMI NECK: Supple, trachea midline. CARDIOVASCULAR: tachycardia, no gallops RESPIRATORY: Breath sounds equal bilaterally. No accessory muscle use. GASTROINTESTINAL: Abdomen soft, non-tender, nondistended. EXTREMITIES: significant LE edema bilaterally (chronic) A/P Problem List: (1) Cancer associated pain ICD Code: G89.3 - Neoplasm related pain (acute) (chronic) Status: Acute (2) Protein calorie malnutrition ICD Code: E46 - Unspecified protein-calorie malnutrition (3) Diarrhea ICD Code: R19.7 - Diarrhea, unspecified (4) Metastatic disease ICD Code: C79.9 - Secondary malignant neoplasm of unspecified site (5) C. difficile diarrhea ICD Code: A04.72 - Enterocolitis due to Clostridium difficile, not specified as recurrent Assessment and Plan Metastatic Disease Stage IV adenocarcinoma of unknown primary origin Undergoing chemotherapy while she is here Oncology following. appreciate assistance. Cancer Associated Pain Ontomorph 60mg Q8 with Dilaudid 2mg Q2 MRI of lumbar spine did not find spread of cancer there PET scan from earlier shows pervasive disease Tachycardia Chronic, patient declined offer for metoprolol, her BP is rather low in the 110' s TSH normal Anemia S/p transfusion of 2 units PRBC, pt feels better Negative for sickle cell trait C Diff Diarrhea Improving, more formed stools and only one BM today Continue PO Vancomycin Pseudomonas UTI Continue Cefepime Suprapubic catheter present If Hemoglobin drops again, consider hematuria as source of loss. Sacral Ulcer Wound care following. Acute Renal Failure Following BUN/Cr. No new lab. check in AM h/o DVT on Coumadin pharmacy consult in place Discharge Planning CM working on placement Leah Oconnell MD May 11, 2017 16:17
--- NOTE | 2017-05-11 17:03 | PD.ONC.PN ---
Subjective Subjective Remarks Afebrile overnight. Patient much more comfortable on increased Oramorph dosing. Requiring much fewer doses of breakthrough IV Dilaudid. Still having swelling in legs. Reports pain in pressure ulcer site improving as well. Objective Data Date Time Temp Pulse Resp B/P (MAP) Pulse Ox O2 Delivery O2 Flow Rate FiO2 05/11/17 13:16 97.3 100 14 105/65 (78) 100 05/11/17 08:42 97.1 104 14 130/83 (99) 100 05/11/17 04:21 99.1 117 18 104/63 (77) 97 05/11/17 00:38 99.8 131 17 113/69 (84) 96 05/10/17 20:39 66 05/11/17 05/11/17 05/11/17 07:00 15:00 23:00 Intake Total 480 ml Output Total 1250 ml Balance -770 ml Result Diagram: 05/11/17 1031 05/11/17 1021 Laboratory Results Laboratory Tests Test 05/11/17 10:21 05/11/17 10:31 Prothrombin Time 16.5 SEC Prothromb Time International Ratio 1.6 RATIO Blood Urea Nitrogen 41 MG/DL Creatinine 1.01 MG/DL Random Glucose 158 MG/DL Calcium Level 9.2 MG/DL Sodium Level 138 MEQ/L Potassium Level 3.9 MEQ/L Chloride Level 102 MEQ/L Carbon Dioxide Level 27.3 MEQ/L Anion Gap 9 MEQ/L Estimat Glomerular Filtration Rate 70 ML/MIN White Blood Count 4.2 TH/MM3 Red Blood Count 3.40 MIL/MM3 Hemoglobin 9.8 GM/DL Hematocrit 29.6 % Mean Corpuscular Volume 87.0 FL Mean Corpuscular Hemoglobin 28.7 PG Mean Corpuscular Hemoglobin Concent 33.0 % Red Cell Distribution Width 16.9 % Platelet Count 89 TH/MM3 Mean Platelet Volume 8.0 FL Neutrophils (%) (Auto) 92.4 % Lymphocytes (%) (Auto) 5.3 % Monocytes (%) (Auto) 2.2 % Eosinophils (%) (Auto) 0.0 % Basophils (%) (Auto) 0.1 % Neutrophils # (Auto) 3.9 TH/MM3 Lymphocytes # (Auto) 0.2 TH/MM3 Monocytes # (Auto) 0.1 TH/MM3 Eosinophils # (Auto) 0.0 TH/MM3 Basophils # (Auto) 0.0 TH/MM3 CBC Comment AUTO DIFF Differential Comment AUTO DIFF CONFIRMED Platelet Estimate LOW Platelet Morphology Comment ENLARGED Administered Medications Medications (Trade) Dose Ordered Sig/Erendira Route PRN Reason Start Time Stop Time Status Last Admin Dose Admin Sodium Chloride (NS Flush) 2 ml UNSCH PRN IV FLUSH FLUSH AFTER USING IV ACCESS 04/25/17 18:15 05/06/17 13:23 Sodium Chloride (NS Flush) 2 ml BID IV FLUSH 04/25/17 21:00 05/11/17 08:35 Senna/Docusate Sodium (Julieta-Colace) 1 tab BID PO 04/26/17 09:00 Future Hold 05/06/17 09:02 Miscellaneous Information 1 Q3D T-DERMAL 04/29/17 09:00 04/29/17 08:54 Vancomycin HCl (VANCOMYCIN for oral use only) 125 mg QID PO 04/26/17 09:00 05/11/17 13:11 Hydromorphone HCl (Dilaudid Pf Inj) 2 mg Q2HR PRN IV PUSH pain >5 04/27/17 15:00 05/10/17 21:50 Furosemide (Lasix Inj) 20 mg BID@,18 IV PUSH 04/30/17 18:00 05/11/17 08:34 Multivitamins/ Minerals Therapeutic (Theragran M Tab) 1 tab DAILY PO 05/02/17 09:00 05/11/17 08:34 Filgrastim 300 mcg/Dextrose 25 ml @ 100 mls/hr DAILY@14 IV 05/07/17 14:00 Future Hold 05/07/17 15:10 Diphenhydramine HCl (Benadryl) 25 mg Q4H PRN PO SEE LABEL COMMENTS 05/07/17 11:30 05/07/17 18:55 Warfarin Sodium (Coumadin) 4 mg DAILY@16 PO 05/08/17 16:00 05/10/17 15:52 Morphine Sulfate (Oramorph Sr) 100 mg Q8H PO 05/08/17 18:00 05/11/17 10:20 Heparin Sodium (Porcine) (Heparin Central Flush) 250 units UNSCH PRN IV FLUSH SEE PROTOCOL TABLE 05/10/17 21:00 05/10/17 22:21 Heparin Sodium (Porcine) (Heparin Central Flush) 500 units UNSCH IV FLUSH 05/10/17 21:00 05/11/17 10:14 Alteplase, Recombinant (Cathflo Activase Inj) 2 mg UNSCH PRN IV FOR PORT OCCLUSION 05/11/17 01:45 05/11/17 02:27 Objective Remarks GENERAL: chronically ill female, sitting up in chair next to bed. appears comfortable, relaxed and watching TV SKIN: Warm and dry. HEAD: Normocephalic. EYES: No injection or drainage. NECK: Supple, trachea midline. CARDIOVASCULAR: tachy, regular rhythm. RESPIRATORY: Breath sounds equal bilaterally. No accessory muscle use. : has left nephrostomy tube and suprapubic catheter. both sites are clean without erythema or draining. both catheters are draining clear urine. GASTROINTESTINAL: Abdomen soft, non-tender, nondistended. EXTREMITIES: No cyanosis. bilateral lower extremities, 2+ edema. NEUROLOGICAL: awake and alert, normal speech. Assessment/Plan Problem List: (1) Thrombocytopenia ICD Codes: D69.6 - Thrombocytopenia, unspecified Plan: --likely d/t chemotherapy --will hold coumadin tomorrow if counts continue to drop. --monitor for bleeding. (2) Metastatic disease ICD Codes: C79.9 - Secondary malignant neoplasm of unspecified site Plan: Mrs. Dubon reports a history of cancer of the uterus/cervix diagnosed in 2005, she was living in [place] at that time and underwent biopsy and treatment with chemotherapy and radiation at [facility]. Records will be requested from there. She remained in remission until 2014, she developed lower abdominal pain and was found to have a mass in the uterus, she underwent hysterectomy followed by chemotherapy at [facility] in [place], [place]. Since then she has been found to have what appears to be recurrent disease with multifocal liver metastases as well as multifocal pulmonary metastases. She has chronic ureteric obstruction likely due to her previous gynecologic malignancies and radiation and surgery rendered for treatment of this diagnosis. Now on treatment for metastatic adenocarcinoma; based on her clinical history, previous history of relapsing recurrent gynecologic malignancy I suspect she now has metastatic adenocarcinoma of the uterine origin or at least gynecologic origin. She is on carboplatin based therapy with Avastin which is appropriate treatment. --s/p day 8 gemcitabine 05/10 05/11: I called and requested slides from patient's pathology obtained during hysterectomy in [facility] in [place], [place] in 2014. Also requested records through the same hospital. (3) Normocytic anemia ICD Codes: D64.9 - Anemia, unspecified Plan: --transfuse as needed. (4) Cancer associated pain ICD Codes: G89.3 - Neoplasm related pain (acute) (chronic) Status: Acute Plan: --PET scan shows diffuse disease in lungs, abdomen and skeleton. --currently on ORAMORPH 60mg PO q 8+ Dilaudid 2mg IV q 2 hours (5) DVT (deep venous thrombosis) ICD Codes: I82.409 - Acute embolism and thrombosis of unspecified deep veins of unspecified lower extremity Status: Chronic Plan: --on coumadin (6) C. difficile diarrhea ICD Codes: A04.72 - Enterocolitis due to Clostridium difficile, not specified as recurrent Plan: --on PO Vanco --repeat stool +Cdiff on 05/06 (7) Sacral decubitus ulcer ICD Codes: L89.159 - Pressure ulcer of sacral region, unspecified stage Plan: --wound care following. Assessment 51y/o female with stage IV adenocarcinoma, with liver and lung metastasis with unknown primary admitted with intractable pain mostly in lower spine. --was residing in [facility] and according to the patient she received radiation and chemotherapy. Subsequently she moved to [place] and [place]. --recently had DVT in her left lower extremity. was in [place] at that time. has been on anticoagulation. PET scan-->diffuse disease involving her lung, abdomen and bones. history of cervical cancer in 2006 treated with chemotherapy and radiation treatments. Bilateral lower extremity DVT Severe peripheral neuropathy. Plan 1. pathology + records requested from [facility] in [place], [place] 2. continue Oramorph + IV Dilaudid. 3. monitor CBC, will need to hold coumadin if platelets drop further Problem Qualifiers (1) DVT (deep venous thrombosis): (2) Sacral decubitus ulcer: Qualified Codes: L89.159 - Pressure ulcer of sacral region, unspecified stage Debra Newell May 11, 2017 17:03
[2017-05-11] MEDS: WARFARIN SOD 4 MG TAB PO SCH (18:37)
[2017-05-12] VITALS (9 sets, daily range): BP systolic 107–126; BP diastolic 58–78; PULSE 87–122; RESP 16–19; TEMP 96.7–98.5; O2SAT 10–100
[2017-05-12] MEDS: MORPHINE SULFATE 100 MG CONTROLLED RELEASE TAB PO SCH ×3 (02:15→18:53)
[2017-05-12 06:35] LABS: AUTOMATED NEUTROPHIL # 2.2 TH/MM3 (1.8-7.7); BASOPHIL % 0.1 % (0.0-2.0); EOSINOPHIL % 0.1 % (0.0-4.0); HEMATOCRIT 29.4 % (35.0-46.0); HEMOGLOBIN 9.6 GM/DL (11.6-15.3); LYMPH % 18.2 % (9.0-44.0); LYMPHOCYTE # 0.5 TH/MM3 (1.0-4.8); MEAN CELL VOLUME 87.7 FL (80.0-100.0); MEAN CORPUSCULAR HEMOGLOBIN 28.8 PG (27.0-34.0); MEAN CORPUSCULAR HGB CONC 32.8 % (32.0-36.0); MONO % 3.8 % (0.0-8.0); MONOCYTE # 0.1 TH/MM3 (0-0.9); NEUT % 77.8 % (16.0-70.0); PLATELET COUNT 81 TH/MM3 (150-450); RED BLOOD COUNT 3.36 MIL/MM3 (4.00-5.30); RED CELL DISTRIBUTION WIDTH 16.9 % (11.6-17.2); WHITE BLOOD COUNT 2.8 TH/MM3 (4.0-11.0)
[2017-05-12 06:47] LABS: INTERNATIONAL NORMALIZED RATIO 1.8 RATIO; PROTHROMBIN TIME - PATIENT 18.5 SEC (9.8-11.6)
[2017-05-12 07:32] LABS: BICARBONATE 26.8 MEQ/L (21.0-32.0); CALCIUM 9.3 MG/DL (8.5-10.1); CREATININE 1.19 MG/DL (0.50-1.00)
[2017-05-12] MEDS: FUROSEMIDE 20 MG/2 ML VIAL IV PUSH SCH ×2 (10:09→18:52)
[2017-05-12] MEDS: VANCOMYCIN 500 MG VIAL (FOR ORAL USE ONLY) PO SCH ×4 (10:09→21:18)
[2017-05-12] MEDS: MULTIVITAMINS/MINERALS THERAPEUTIC TAB PO SCH (10:09)
[2017-05-12] MEDS: SODIUM CHLORIDE 0.9% FLUSH 10 ML FLUSH IV FLUSH SCH ×2 (10:10→21:24)
--- NOTE | 2017-05-12 11:35 | PD.ONC.PN ---
Subjective Subjective Remarks Afebrile overnight. states she still has some pain at site of pressure ulcer. she would like some type of bandage over the wound. she states it makes it feel better. pain in back and legs is well controlled with current pain regimen. eating well. discussed healthcare surrogate. she plans to designate her eldest daughter and is going to call her today. Objective Data Date Time Temp Pulse Resp B/P (MAP) Pulse Ox O2 Delivery O2 Flow Rate FiO2 05/12/17 10:00 97.5 99 16 107/73 (84) 100 05/12/17 05:00 97.4 92 19 111/75 (87) 100 05/12/17 04:03 89 05/12/17 03:15 16 05/12/17 00:43 97.9 97 18 109/70 (83) 100 05/12/17 00:05 87 05/11/17 21:31 97.6 95 19 102/69 (80) 100 05/11/17 20:06 106 05/11/17 18:54 96.3 97 14 98 05/11/17 13:16 97.3 100 14 105/65 (78) 100 05/12/17 05/12/17 05/12/17 07:00 15:00 23:00 Intake Total 720 ml Output Total 775 ml Balance -55 ml Result Diagram: 05/12/1761205/12/17612 Laboratory Results Laboratory Tests Test 05/12/17 06:13 White Blood Count 2.8 TH/MM3 Red Blood Count 3.36 MIL/MM3 Hemoglobin 9.6 GM/DL Hematocrit 29.4 % Mean Corpuscular Volume 87.7 FL Mean Corpuscular Hemoglobin 28.8 PG Mean Corpuscular Hemoglobin Concent 32.8 % Red Cell Distribution Width 16.9 % Platelet Count 81 TH/MM3 Mean Platelet Volume 8.0 FL Neutrophils (%) (Auto) 77.8 % Lymphocytes (%) (Auto) 18.2 % Monocytes (%) (Auto) 3.8 % Eosinophils (%) (Auto) 0.1 % Basophils (%) (Auto) 0.1 % Neutrophils # (Auto) 2.2 TH/MM3 Lymphocytes # (Auto) 0.5 TH/MM3 Monocytes # (Auto) 0.1 TH/MM3 Eosinophils # (Auto) 0.0 TH/MM3 Basophils # (Auto) 0.0 TH/MM3 CBC Comment AUTO DIFF Differential Comment AUTO DIFF CONFIRMED Platelet Estimate LOW Platelet Morphology Comment NORMAL Red Cell Morphology Comment NORMAL Prothrombin Time 18.5 SEC Prothromb Time International Ratio 1.8 RATIO Blood Urea Nitrogen 54 MG/DL Creatinine 1.19 MG/DL Random Glucose 126 MG/DL Calcium Level 9.3 MG/DL Sodium Level 136 MEQ/L Potassium Level 3.7 MEQ/L Chloride Level 100 MEQ/L Carbon Dioxide Level 26.8 MEQ/L Anion Gap 9 MEQ/L Estimat Glomerular Filtration Rate 58 ML/MIN Administered Medications Medications (Trade) Dose Ordered Sig/Erendira Route PRN Reason Start Time Stop Time Status Last Admin Dose Admin Sodium Chloride (NS Flush) 2 ml UNSCH PRN IV FLUSH FLUSH AFTER USING IV ACCESS 04/25/17 18:15 05/06/17 13:23 Sodium Chloride (NS Flush) 2 ml BID IV FLUSH 04/25/17 21:00 05/12/17 10:10 Senna/Docusate Sodium (Julieta-Colace) 1 tab BID PO 04/26/17 09:00 Future Hold 05/06/17 09:02 Miscellaneous Information 1 Q3D T-DERMAL 04/29/17 09:00 04/29/17 08:54 Vancomycin HCl (VANCOMYCIN for oral use only) 125 mg QID PO 04/26/17 09:00 05/12/17 10:09 Hydromorphone HCl (Dilaudid Pf Inj) 2 mg Q2HR PRN IV PUSH pain >5 04/27/17 15:00 05/10/17 21:50 Furosemide (Lasix Inj) 20 mg BID@ IV PUSH 04/30/17 18:00 05/12/17 10:09 Multivitamins/ Minerals Therapeutic (Theragran M Tab) 1 tab DAILY PO 05/02/17 09:00 05/12/17 10:09 Filgrastim 300 mcg/Dextrose 25 ml @ 100 mls/hr DAILY@14 IV 05/07/17 14:00 Future Hold 05/07/17 15:10 Diphenhydramine HCl (Benadryl) 25 mg Q4H PRN PO SEE LABEL COMMENTS 05/07/17 11:30 05/07/17 18:55 Warfarin Sodium (Coumadin) 4 mg DAILY@16 PO 1/2/18 16:00 05/11/17 18:37 Morphine Sulfate (Oramorph Sr) 100 mg Q8H PO 05/08/17 18:00 05/12/17 10:13 Heparin Sodium (Porcine) (Heparin Central Flush) 250 units UNSCH PRN IV FLUSH SEE PROTOCOL TABLE 05/10/17 21:00 05/10/17 22:21 Heparin Sodium (Porcine) (Heparin Central Flush) 500 units UNSCH IV FLUSH 05/10/17 21:00 05/12/17 06:19 Alteplase, Recombinant (Cathflo Activase Inj) 2 mg UNSCH PRN IV FOR PORT OCCLUSION 05/11/17 01:45 05/11/17 02:27 Objective Remarks GENERAL: chronically ill female, upright in chair in nad. SKIN: Warm and dry. HEAD: Normocephalic. EYES: No injection or drainage. NECK: Supple, trachea midline. CARDIOVASCULAR: tachy, regular rhythm. RESPIRATORY: Breath sounds equal bilaterally. No accessory muscle use. : +left nephrostomy tube, +suprapubic catheter. sites clean. draining clear urine. GASTROINTESTINAL: Abdomen soft, non-tender, nondistended. EXTREMITIES: No cyanosis. 2+ edema, ble NEUROLOGICAL: awake and alert, normal speech. able to move extremities. Assessment/Plan Problem List: (1) Pancytopenia ICD Codes: D61.818 - Other pancytopenia Plan: --likely d/t chemotherapy --may need to hold coumadin if counts continue to drop. --monitor for bleeding. (2) Metastatic disease ICD Codes: C79.9 - Secondary malignant neoplasm of unspecified site Plan: Mrs. Dubon reports a history of cancer of the uterus/cervix diagnosed in 2005, she was living in [place] at that time and underwent biopsy and treatment with chemotherapy and radiation at [facility]. Records will be requested from there. She remained in remission until 2014, she developed lower abdominal pain and was found to have a mass in the uterus, she underwent hysterectomy followed by chemotherapy at [facility] in [place], [place]. Since then she has been found to have what appears to be recurrent disease with multifocal liver metastases as well as multifocal pulmonary metastases. She has chronic ureteric obstruction likely due to her previous gynecologic malignancies and radiation and surgery rendered for treatment of this diagnosis. Now on treatment for metastatic adenocarcinoma; based on her clinical history, previous history of relapsing recurrent gynecologic malignancy I suspect she now has metastatic adenocarcinoma of the uterine origin or at least gynecologic origin. She is on carboplatin based therapy with Avastin which is appropriate treatment. --s/p day 8 gemcitabine 05/10 05/11: I called and requested slides from patient's pathology obtained during hysterectomy in [facility] in [place], [place] in 2014. Also requested records through the same hospital. (3) Cancer associated pain ICD Codes: G89.3 - Neoplasm related pain (acute) (chronic) Status: Acute Plan: --PET scan shows diffuse disease in lungs, abdomen and skeleton. --currently on ORAMORPH 60mg PO q 8+ Dilaudid 2mg IV q 2 hours (4) DVT (deep venous thrombosis) ICD Codes: I82.409 - Acute embolism and thrombosis of unspecified deep veins of unspecified lower extremity Status: Chronic Plan: --on coumadin (5) C. difficile diarrhea ICD Codes: A04.72 - Enterocolitis due to Clostridium difficile, not specified as recurrent Plan: --on PO Vanco --repeat stool +Cdiff on 05/06 (6) Sacral decubitus ulcer ICD Codes: L89.159 - Pressure ulcer of sacral region, unspecified stage Plan: --wound care following. Assessment 51y/o female with stage IV adenocarcinoma, with liver and lung metastasis with unknown primary admitted with intractable pain mostly in lower spine. --was residing in [facility] and according to the patient she received radiation and chemotherapy. Subsequently she moved to [place] and [place]. --recently had DVT in her left lower extremity. was in [place] at that time. has been on anticoagulation. PET scan-->diffuse disease involving her lung, abdomen and bones. history of cervical cancer in 2005 treated with chemotherapy and radiation treatments. Bilateral lower extremity DVT Severe peripheral neuropathy. Plan 1. d/w nurse--nursing staff has not been placing any dressing over decubitus ulcer d/t concern about contamination from BM's. will trial soft dressing over area today and reassess tomorrow 2. monitor CBC 3. await pathology/records from [place] Problem Qualifiers (1) DVT (deep venous thrombosis): (2) Sacral decubitus ulcer: Qualified Codes: L89.159 - Pressure ulcer of sacral region, unspecified stage Debra Newell May 12, 2017 11:35
--- NOTE | 2017-05-12 17:08 | HHI.PR ---
Subjective Remarks Pt has stools that are semi-solid. She is generally weakened, but is unable to go to rehab due to her insurance. She has no new complaints. Objective Vitals Vital Signs Date Time Temp Pulse Resp B/P (MAP) Pulse Ox O2 Delivery O2 Flow Rate FiO2 05/12/17 13:54 97.7 108 16 126/78 (94) 98 05/12/17 10:00 97.5 99 16 107/73 (84) 100 05/12/17 05:00 97.4 92 19 111/75 (87) 100 05/12/17 04:03 89 05/12/17 03:15 16 05/12/17 00:43 97.9 97 18 109/70 (83) 100 05/12/17 00:05 87 05/11/17 21:31 97.6 95 19 102/69 (80) 100 05/11/17 20:06 106 05/11/17 18:54 96.3 97 14 98 I/O 05/11/17 05/11/17 05/11/17 05/12/17 05/12/17 05/12/17 07:00 15:00 23:00 07:00 15:00 23:00 Intake Total 480 ml 500 ml 720 ml Output Total 1250 ml 850 ml 775 ml 300 ml Balance -770 ml -350 ml -55 ml -300 ml Intake Oral 480 ml 500 ml 720 ml Output Urine Total 600 ml 400 ml 450 ml Drainage Total 650 ml 450 ml 325 ml 300 ml # Bowel Movements 4 2 Result Diagram: 05/12/1761205/12/17612 Objective Remarks GENERAL: Weakened appearing female. SKIN: Warm and dry. HEAD: Normocephalic. EYES: No scleral icterus. No injection or drainage. NECK: Supple, trachea midline. No JVD or lymphadenopathy. CARDIOVASCULAR: tachycardia, no gallops, or rubs. RESPIRATORY: Breath sounds equal bilaterally. No accessory muscle use. GASTROINTESTINAL: Abdomen soft, non-tender, nondistended. MUSCULOSKELETAL: No cyanosis BACK: Nontender without obvious deformity. No CVA tenderness. EXTREMITIES: significant LE edema bilaterally (chronic) A/P Problem List: (1) Cancer associated pain ICD Code: G89.3 - Neoplasm related pain (acute) (chronic) Status: Acute (2) Protein calorie malnutrition ICD Code: E46 - Unspecified protein-calorie malnutrition (3) Diarrhea ICD Code: R19.7 - Diarrhea, unspecified (4) Metastatic disease ICD Code: C79.9 - Secondary malignant neoplasm of unspecified site (5) C. difficile diarrhea ICD Code: A04.72 - Enterocolitis due to Clostridium difficile, not specified as recurrent Assessment and Plan Metastatic Disease Stage IV adenocarcinoma of unknown primary origin Undergoing chemotherapy while she is here Oncology following Cancer Associated Pain Ontomorph 60mg Q8 with Dilaudid 2mg Q2 MRI of lumbar spine did not find spread of cancer there PET scan from earlier shows pervasive disease Tachycardia Chronic, patient declined offer for metoprolol, her BP is rather low in the 110' s TSH normal Anemia S/p transfusion of 2 units PRBC, pt feels better H&H remain stable C Diff Diarrhea Improving, more formed stools Continue PO Vancomycin Pseudomonas UTI Continue Cefepime Suprapubic catheter present If Hemoglobin drops again, consider hematuria as source of loss Sacral Ulcer Wound care consult Acute Renal Failure Following BUN/Cr h/o DVT Continue Coumadin Discharge Planning Rehab/SNF placement difficult due to her form of insurance Tommie Matias MD May 12, 2017 5:07 pm
[2017-05-12] MEDS: WARFARIN SOD 4 MG TAB PO SCH (17:29)
[2017-05-12] MEDS: HYDROmorphone HCL PF 2 MG/ML VIAL IV PUSH PRN (21:23)
[2017-05-13] VITALS (9 sets, daily range): BP systolic 107–130; BP diastolic 62–69; PULSE 116–143; RESP 16–18; TEMP 98–99.1; O2SAT 97–100
[2017-05-13] MEDS: HYDROmorphone HCL PF 2 MG/ML VIAL IV PUSH PRN ×2 (00:03→04:36)
[2017-05-13] MEDS: MORPHINE SULFATE 100 MG CONTROLLED RELEASE TAB PO SCH ×3 (01:48→17:38)
[2017-05-13 04:53] LABS: AUTOMATED NEUTROPHIL # 0.6 TH/MM3 (1.8-7.7); BASOPHIL % 0.3 % (0.0-2.0); EOSINOPHIL % 0.9 % (0.0-4.0); HEMATOCRIT 27.5 % (35.0-46.0); HEMOGLOBIN 8.9 GM/DL (11.6-15.3); LYMPH % 41.2 % (9.0-44.0); LYMPHOCYTE # 0.5 TH/MM3 (1.0-4.8); MEAN CELL VOLUME 87.3 FL (80.0-100.0); MEAN CORPUSCULAR HEMOGLOBIN 28.3 PG (27.0-34.0); MEAN CORPUSCULAR HGB CONC 32.4 % (32.0-36.0); MEAN PLATELET VOLUME 7.8 FL (7.0-11.0); MONO % 0.7 % (0.0-8.0); NEUT % 56.9 % (16.0-70.0); PLATELET COUNT 84 TH/MM3 (150-450); RED BLOOD COUNT 3.15 MIL/MM3 (4.00-5.30); RED CELL DISTRIBUTION WIDTH 16.8 % (11.6-17.2); WHITE BLOOD COUNT 1.1 TH/MM3 (4.0-11.0)
[2017-05-13 05:04] LABS: INTERNATIONAL NORMALIZED RATIO 2.1 RATIO; PROTHROMBIN TIME - PATIENT 20.9 SEC (9.8-11.6)
[2017-05-13 06:22] LABS: LYMPHOCYTES 29 % (9-44); MONOCYTES 2 % (0-8); NEUTROPHIL # MANUAL DIFF 0.7 TH/MM3 (1.8-7.7); POLYS (SEG NEUTROPHILS) 68 % (16-70)
[2017-05-13] MEDS: VANCOMYCIN 500 MG VIAL (FOR ORAL USE ONLY) PO SCH ×4 (08:52→21:55)
[2017-05-13] MEDS: MULTIVITAMINS/MINERALS THERAPEUTIC TAB PO SCH (08:52)
[2017-05-13] MEDS: SODIUM CHLORIDE 0.9% FLUSH 10 ML FLUSH IV FLUSH SCH ×2 (08:53→21:00)
[2017-05-13] MEDS: FUROSEMIDE 20 MG/2 ML VIAL IV PUSH SCH ×2 (08:53→17:35)
[2017-05-13 09:54] LABS: ALBUMIN 1.6 GM/DL (3.4-5.0); AST (GOT) 28 U/L (15-37); BICARBONATE 27.9 MEQ/L (21.0-32.0); BLOOD UREA NITROGEN 52 MG/DL (7-18); CALCIUM 9.1 MG/DL (8.5-10.1); CHLORIDE 101 MEQ/L (98-107); GLOMERULAR FILTRATION RATE 57 ML/MIN (>89); GLUCOSE,RANDOM 139 MG/DL (74-106); SODIUM (NA) 137 MEQ/L (136-145)
[2017-05-13 09:55] LABS: ALT (GPT) 22 U/L (10-53)
[2017-05-13 09:57] LABS: ALKALINE PHOSPHATASE 189 U/L (45-117); TOTAL BILIRUBIN ADULT 0.5 MG/DL (0.2-1.0); TOTAL PROTEIN 7.2 GM/DL (6.4-8.2)
--- NOTE | 2017-05-13 12:08 | PD.ONC.PN ---
Subjective Subjective Remarks Afebrile overnight. Patient did not like bandage over her pressure wound yesterday. The adhesive kept pulling the wound further apart, she states. No other complaints. Daughter at bedside. Objective Data Date Time Temp Pulse Resp B/P (MAP) Pulse Ox O2 Delivery O2 Flow Rate FiO2 05/13/17 08:44 99.0 143 16 126/69 (88) 98 05/13/17 05:06 18 05/13/17 04:23 98.1 135 18 107/69 (82) 97 05/13/17 04:06 118 05/13/17 02:48 16 05/13/17 00:10 98.3 119 16 116/62 (80) 97 05/13/17 00:07 116 05/12/17 21:15 98.5 120 18 117/70 (86) 10 05/12/17 20:24 122 05/12/17 17:21 96.7 116 16 112/58 (76) 98 05/12/17 13:54 97.7 108 16 126/78 (94) 98 05/13/17 05/13/17 05/13/17 07:00 15:00 23:00 Intake Total 240 ml Output Total 625 ml Balance -385 ml Result Diagram: 05/13/17 0440 05/13/17 0900 Laboratory Results Laboratory Tests Test 05/13/17 04:40 05/13/17 09:00 White Blood Count 1.1 TH/MM3 Red Blood Count 3.15 MIL/MM3 Hemoglobin 8.9 GM/DL Hematocrit 27.5 % Mean Corpuscular Volume 87.3 FL Mean Corpuscular Hemoglobin 28.3 PG Mean Corpuscular Hemoglobin Concent 32.4 % Red Cell Distribution Width 16.8 % Platelet Count 84 TH/MM3 Mean Platelet Volume 7.8 FL Neutrophils (%) (Auto) 56.9 % Lymphocytes (%) (Auto) 41.2 % Monocytes (%) (Auto) 0.7 % Eosinophils (%) (Auto) 0.9 % Basophils (%) (Auto) 0.3 % Neutrophils # (Auto) 0.6 TH/MM3 Lymphocytes # (Auto) 0.5 TH/MM3 Monocytes # (Auto) 0.0 TH/MM3 Eosinophils # (Auto) 0.0 TH/MM3 Basophils # (Auto) 0.0 TH/MM3 CBC Comment AUTO DIFF Differential Total Cells Counted 100 Neutrophils % (Manual) 68 % Lymphocytes % 29 % Monocytes % 2 % Eosinophils % 1 % Neutrophils # (Manual) 0.7 TH/MM3 Differential Comment FINAL DIFF MANUAL Platelet Estimate LOW Platelet Morphology Comment NORMAL Red Cell Morphology Comment NORMAL Prothrombin Time 20.9 SEC Prothromb Time International Ratio 2.1 RATIO Blood Urea Nitrogen 52 MG/DL Creatinine 1.20 MG/DL Random Glucose 139 MG/DL Total Protein 7.2 GM/DL Albumin 1.6 GM/DL Calcium Level 9.1 MG/DL Alkaline Phosphatase 189 U/L Aspartate Amino Transf (AST/SGOT) 28 U/L Alanine Aminotransferase (ALT/SGPT) 22 U/L Total Bilirubin 0.5 MG/DL Sodium Level 137 MEQ/L Potassium Level 3.8 MEQ/L Chloride Level 101 MEQ/L Carbon Dioxide Level 27.9 MEQ/L Anion Gap 8 MEQ/L Estimat Glomerular Filtration Rate 57 ML/MIN Administered Medications Medications (Trade) Dose Ordered Sig/Erendira Route PRN Reason Start Time Stop Time Status Last Admin Dose Admin Sodium Chloride (NS Flush) 2 ml UNSCH PRN IV FLUSH FLUSH AFTER USING IV ACCESS 04/25/17 18:15 05/06/17 13:23 Sodium Chloride (NS Flush) 2 ml BID IV FLUSH 04/25/17 21:00 05/13/17 08:53 Senna/Docusate Sodium (Julieta-Colace) 1 tab BID PO 04/26/17 09:00 Future Hold 05/06/17 09:02 Miscellaneous Information 1 Q3D T-DERMAL 04/29/17 09:00 04/29/17 08:54 Vancomycin HCl (VANCOMYCIN for oral use only) 125 mg QID PO 04/26/17 09:00 05/13/17 08:52 Hydromorphone HCl (Dilaudid Pf Inj) 2 mg Q2HR PRN IV PUSH pain >5 04/27/17 15:00 05/13/17 04:36 Furosemide (Lasix Inj) 20 mg BID@ IV PUSH 04/30/17 18:00 05/13/17 08:53 Multivitamins/ Minerals Therapeutic (Theragran M Tab) 1 tab DAILY PO 05/02/17 09:00 05/13/17 08:52 Filgrastim 300 mcg/Dextrose 25 ml @ 100 mls/hr DAILY@14 IV 05/07/17 14:00 Future hold 05/07/17 15:10 Diphenhydramine HCl (Benadryl) 25 mg Q4H PRN PO SEE LABEL COMMENTS 05/07/17 11:30 05/07/17 18:55 Warfarin Sodium (Coumadin) 4 mg DAILY@16 PO 05/08/17 16:00 05/12/17 17:29 Morphine Sulfate (Oramorph Sr) 100 mg Q8H PO 05/08/17 18:00 05/13/17 08:54 Heparin Sodium (Porcine) (Heparin Central Flush) 250 units UNSCH PRN IV FLUSH SEE PROTOCOL TABLE 05/10/17 21:00 05/13/17 04:35 Heparin Sodium (Porcine) (Heparin Central Flush) 500 units UNSCH IV FLUSH 05/10/17 21:00 05/12/17 06:19 Alteplase, Recombinant (Cathflo Activase Inj) 2 mg UNSCH PRN IV FOR PORT OCCLUSION 05/11/17 01:45 05/11/17 02:27 Objective Remarks GENERAL: chronically ill female, sitting up in chair in nad. SKIN: Warm and dry. 5-6cm pressure ulcer along left buttock. no sign of infection. HEAD: Normocephalic. EYES: No injection or drainage. NECK: Supple, trachea midline. CARDIOVASCULAR: +S1/S2, tachycardic RESPIRATORY: Breath sounds equal bilaterally. No accessory muscle use. : nephrostomy tube and suprapubic catheter are both draining clear urine. no blood. GASTROINTESTINAL: Abdomen soft, non-tender, nondistended. EXTREMITIES: No cyanosis. moderate edema, bilateral lower extremities. NEUROLOGICAL: awake and alert, normal speech. able to move extremities. Assessment/Plan Problem List: (1) Pancytopenia ICD Codes: D61.818 - Other pancytopenia Plan: --likely d/t chemotherapy --may need to hold coumadin if counts continue to drop. --monitor for bleeding. --Neupogen resumed 05/13 (2) Metastatic disease ICD Codes: C79.9 - Secondary malignant neoplasm of unspecified site Plan: Mrs. Dubon reports a history of cancer of the uterus/cervix diagnosed in 2005, she was living in [place] at that time and underwent biopsy and treatment with chemotherapy and radiation at [facility]. Records will be requested from there. She remained in remission until 2014, she developed lower abdominal pain and was found to have a mass in the uterus, she underwent hysterectomy followed by chemotherapy at [facility] in [place], [place]. Since then she has been found to have what appears to be recurrent disease with multifocal liver metastases as well as multifocal pulmonary metastases. She has chronic ureteric obstruction likely due to her previous gynecologic malignancies and radiation and surgery rendered for treatment of this diagnosis. Now on treatment for metastatic adenocarcinoma; based on her clinical history, previous history of relapsing recurrent gynecologic malignancy I suspect she now has metastatic adenocarcinoma of the uterine origin or at least gynecologic origin. She is on carboplatin based therapy with Avastin which is appropriate treatment. --s/p day 8 gemcitabine 05/10 05/11: I called and requested slides from patient's pathology obtained during hysterectomy in [facility] in [place], [place] in 2014. Also requested records through the same hospital. (3) Cancer associated pain ICD Codes: G89.3 - Neoplasm related pain (acute) (chronic) Status: Acute Plan: --PET scan shows diffuse disease in lungs, abdomen and skeleton. --currently on ORAMORPH 60mg PO q 8+ Dilaudid 2mg IV q 2 hours (4) DVT (deep venous thrombosis) ICD Codes: I82.409 - Acute embolism and thrombosis of unspecified deep veins of unspecified lower extremity Status: Chronic Plan: --on coumadin (5) C. difficile diarrhea ICD Codes: A04.72 - Enterocolitis due to Clostridium difficile, not specified as recurrent Plan: --on PO Vanco --repeat stool +Cdiff on 05/06 (6) Sacral decubitus ulcer ICD Codes: L89.159 - Pressure ulcer of sacral region, unspecified stage Plan: --wound care following. Assessment 51y/o female with stage IV adenocarcinoma, with liver and lung metastasis with unknown primary admitted with intractable pain mostly in lower spine. --was residing in [facility] and according to the patient she received radiation and chemotherapy. Subsequently she moved to [place] and [place]. --recently had DVT in her left lower extremity. was in [place] at that time. has been on anticoagulation. PET scan-->diffuse disease involving her lung, abdomen and bones. history of cervical cancer in 2005 treated with chemotherapy and radiation treatments. Bilateral lower extremity DVT Severe peripheral neuropathy. Plan 1. d/w nurse--nursing staff has not been placing any dressing over decubitus ulcer d/t concern about contamination from BM's. will trial soft dressing over area today and reassess tomorrow 2. monitor CBC 3. await pathology/records from [place] 4. will use Calazine cream/barrier cream to sacral ulcer and I also d/w patient the importance of shifting position every two hours to keep pressure off the wound. Problem Qualifiers (1) DVT (deep venous thrombosis): (2) Sacral decubitus ulcer: Qualified Codes: L89.159 - Pressure ulcer of sacral region, unspecified stage Debra Newell May 13, 2017 12:07 Chet James MD May 13, 2017 15:43
[2017-05-13] MEDS: FILGRASTIM INJ 300 MCG in DEXTROSE 5% IN WATER INJ 24 ML IV SCH ×2 (13:49)
--- NOTE | 2017-05-13 15:20 | HHI.PR ---
Subjective Remarks Pt is up in her chair, comfortable, no complaints Objective Vitals Vital Signs Date Time Temp Pulse Resp B/P (MAP) Pulse Ox O2 Delivery O2 Flow Rate FiO2 05/13/17 13:55 98.0 120 16 114/67 (83) 100 05/13/17 08:44 99.0 143 16 126/69 (88) 98 05/13/17 05:06 18 05/13/17 04:23 98.1 135 18 107/69 (82) 97 05/13/17 04:06 118 05/13/17 02:48 16 05/13/17 00:10 98.3 119 16 116/62 (80) 97 05/13/17 00:07 116 05/12/17 21:15 98.5 120 18 117/70 (86) 10 05/12/17 20:24 122 05/12/17 17:21 96.7 116 16 112/58 (76) 98 I/O 05/12/17 05/12/17 05/12/17 05/13/17 05/13/17 05/13/17 07:00 15:00 23:00 07:00 15:00 23:00 Intake Total 720 ml 1200 ml 240 ml 25 ml Output Total 775 ml 575 ml 625 ml Balance -55 ml 625 ml -385 ml 25 ml Intake Oral 720 ml 1200 ml 240 ml IV Total 25 ml Output Urine Total 450 ml 350 ml Drainage Total 325 ml 575 ml 275 ml # Bowel Movements 2 1 Result Diagram: 05/13/17 0440 05/13/17 0900 Objective Remarks GENERAL: Weakened appearing female. SKIN: Warm and dry. HEAD: Normocephalic. EYES: No scleral icterus. No injection or drainage. NECK: Supple, trachea midline. No JVD or lymphadenopathy. CARDIOVASCULAR: tachycardia, no gallops, or rubs. RESPIRATORY: Breath sounds equal bilaterally. No accessory muscle use. GASTROINTESTINAL: Abdomen soft, non-tender, nondistended. MUSCULOSKELETAL: No cyanosis BACK: Nontender without obvious deformity. No CVA tenderness. EXTREMITIES: significant LE edema bilaterally (chronic) A/P Problem List: (1) Cancer associated pain ICD Code: G89.3 - Neoplasm related pain (acute) (chronic) Status: Acute (2) Protein calorie malnutrition ICD Code: E46 - Unspecified protein-calorie malnutrition (3) Diarrhea ICD Code: R19.7 - Diarrhea, unspecified (4) Metastatic disease ICD Code: C79.9 - Secondary malignant neoplasm of unspecified site (5) C. difficile diarrhea ICD Code: A04.72 - Enterocolitis due to Clostridium difficile, not specified as recurrent Assessment and Plan Metastatic Disease Stage IV adenocarcinoma of unknown primary origin Undergoing chemotherapy while she is here Oncology following Cancer Associated Pain Ontomorph 60mg Q8 with Dilaudid 2mg Q2 MRI of lumbar spine did not find spread of cancer there PET scan from earlier shows pervasive disease Tachycardia Chronic, patient declined offer for metoprolol TSH normal Anemia S/p transfusion of 2 units PRBC H&H remain stable C Diff Diarrhea Improving, more formed stools Continue PO Vancomycin Will recheck c. diff Toxin to determine if it is cleared Pseudomonas UTI Continue Cefepime Suprapubic catheter present Consider hematuria as possible source of blood loss if Hgb trends downward again Sacral Ulcer Wound care consult Acute Renal Failure Following BUN/Cr h/o DVT Continue Coumadin Discharge Planning Rehab/SNF placement difficult due to her form of insurance Tommie Matias MD May 13, 2017 15:20
[2017-05-13] MEDS: WARFARIN SOD 4 MG TAB PO SCH (17:35)
[2017-05-14] VITALS (15 sets, daily range): BP systolic 99–153; BP diastolic 48–83; PULSE 115–141; RESP 16–18; TEMP 96.3–100; O2SAT 95–100
[2017-05-14] MEDS: MORPHINE SULFATE 100 MG CONTROLLED RELEASE TAB PO SCH ×3 (02:41→17:51)
[2017-05-14] MEDS: HYDROmorphone HCL PF 2 MG/ML VIAL IV PUSH PRN (02:45)
[2017-05-14] MEDS: SODIUM CHLORIDE 0.9% FLUSH 10 ML FLUSH IV FLUSH PRN ×2 (03:00)
[2017-05-14 04:56] LABS: PROTHROMBIN TIME - PATIENT 20.5 SEC (9.8-11.6)
[2017-05-14 04:58] LABS: HEMATOCRIT 25.4 % (35.0-46.0); HEMOGLOBIN 8.3 GM/DL (11.6-15.3); MEAN CELL VOLUME 87.8 FL (80.0-100.0); MEAN CORPUSCULAR HEMOGLOBIN 28.6 PG (27.0-34.0); MEAN CORPUSCULAR HGB CONC 32.6 % (32.0-36.0); PLATELET COUNT 94 TH/MM3 (150-450); RED BLOOD COUNT 2.89 MIL/MM3 (4.00-5.30); RED CELL DISTRIBUTION WIDTH 16.6 % (11.6-17.2); WHITE BLOOD COUNT 0.7 TH/MM3 (4.0-11.0)
[2017-05-14 05:14] LABS: ALBUMIN 1.6 GM/DL (3.4-5.0); ALT (GPT) 25 U/L (10-53); AST (GOT) 32 U/L (15-37); BICARBONATE 30.4 MEQ/L (21.0-32.0); BLOOD UREA NITROGEN 55 MG/DL (7-18); CALCIUM 8.9 MG/DL (8.5-10.1); CHLORIDE 101 MEQ/L (98-107); CREATININE 1.02 MG/DL (0.50-1.00); GLOMERULAR FILTRATION RATE 69 ML/MIN (>89); GLUCOSE,RANDOM 116 MG/DL (74-106); SODIUM (NA) 139 MEQ/L (136-145)
[2017-05-14 05:16] LABS: ALKALINE PHOSPHATASE 185 U/L (45-117); TOTAL BILIRUBIN ADULT 0.7 MG/DL (0.2-1.0); TOTAL PROTEIN 6.7 GM/DL (6.4-8.2)
[2017-05-14] MEDS ORDERED: SODIUM CHLORIDE 0.9% FLUSH 10 ML FLUSH IV FLUSH PRN ×2 (06:45)
[2017-05-14 07:06] LABS: BANDS 3 % (0-6); LYMPHOCYTES 47 % (9-44); MONOCYTES 3 % (0-8); NEUTROPHIL # MANUAL DIFF 0.4 TH/MM3 (1.8-7.7); POLYS (SEG NEUTROPHILS) 47 % (16-70)
[2017-05-14] MEDS: VANCOMYCIN 500 MG VIAL (FOR ORAL USE ONLY) PO SCH ×4 (08:41→21:55)
[2017-05-14] MEDS: FUROSEMIDE 20 MG/2 ML VIAL IV PUSH SCH ×2 (08:42→17:51)
[2017-05-14] MEDS: MULTIVITAMINS/MINERALS THERAPEUTIC TAB PO SCH (08:42)
[2017-05-14] MEDS: REMOVE OLD DURAGESIC (FENTANYL) PATCH T-DERMAL SCH (08:43)
[2017-05-14] MEDS: SODIUM CHLORIDE 0.9% FLUSH 10 ML FLUSH IV FLUSH SCH ×2 (08:43→21:00)
--- NOTE | 2017-05-14 09:13 | PD.ONC.PN ---
Subjective Subjective Remarks Tmax 99.8 overnight. Left nephrostomy tube leaking urine. Otherwise feeling comfortable. Does not want anything on her pressure ulcer. Objective Data Date Time Temp Pulse Resp B/P (MAP) Pulse Ox O2 Delivery O2 Flow Rate FiO2 05/14/17 08:44 141 18 109/54 (72) 97 05/14/17 04:04 115 05/14/17 04:02 16 05/14/17 03:01 98.6 123 16 116/64 (81) 95 05/14/17 01:07 131 05/14/17 00:50 99.8 128 18 122/62 (82) 97 05/14/17 00:13 123 05/13/17 20:30 99.1 137 18 130/68 (88) 100 05/13/17 20:04 128 05/13/17 17:30 98.8 136 16 121/64 (83) 99 05/13/17 13:55 98.0 120 16 114/67 (83) 100 05/14/17 05/14/17 05/14/17 07:00 15:00 23:00 Intake Total 240 ml Output Total 400 ml Balance -160 ml Result Diagram: 05/14/17 0300 05/14/17 0300 Laboratory Results Laboratory Tests Test 05/13/17 23:50 05/14/17 03:00 Stool C. difficile Toxin (PCR) POSITIVE Stl C. difficile Toxin Epiderm 027 PRESUMPTIVE NEGATIVE White Blood Count 0.7 TH/MM3 Red Blood Count 2.89 MIL/MM3 Hemoglobin 8.3 GM/DL Hematocrit 25.4 % Mean Corpuscular Volume 87.8 FL Mean Corpuscular Hemoglobin 28.6 PG Mean Corpuscular Hemoglobin Concent 32.6 % Red Cell Distribution Width 16.6 % Platelet Count 94 TH/MM3 Mean Platelet Volume 9.0 FL CBC Comment AUTO DIFF Differential Total Cells Counted 70 Neutrophils % (Manual) 47 % Band Neutrophils % 3 % Lymphocytes % 47 % Monocytes % 3 % Neutrophils # (Manual) 0.4 TH/MM3 Differential Comment FINAL DIFF MANUAL Platelet Estimate LOW Platelet Morphology Comment ENLARGED Red Cell Morphology Comment NORMAL Prothrombin Time 20.5 SEC Prothromb Time International Ratio 2.0 RATIO Blood Urea Nitrogen 55 MG/DL Creatinine 1.02 MG/DL Random Glucose 116 MG/DL Total Protein 6.7 GM/DL Albumin 1.6 GM/DL Calcium Level 8.9 MG/DL Alkaline Phosphatase 185 U/L Aspartate Amino Transf (AST/SGOT) 32 U/L Alanine Aminotransferase (ALT/SGPT) 25 U/L Total Bilirubin 0.7 MG/DL Sodium Level 139 MEQ/L Potassium Level 3.6 MEQ/L Chloride Level 101 MEQ/L Carbon Dioxide Level 30.4 MEQ/L Anion Gap 8 MEQ/L Estimat Glomerular Filtration Rate 69 ML/MIN Administered Medications Medications (Trade) Dose Ordered Sig/Erendira Route PRN Reason Start Time Stop Time Status Last Admin Dose Admin Sodium Chloride (NS Flush) 2 ml UNSCH PRN IV FLUSH FLUSH AFTER USING IV ACCESS 04/25/17 18:15 05/14/17 03:00 Sodium Chloride (NS Flush) 2 ml BID IV FLUSH 04/25/17 21:00 05/14/17 08:43 Senna/Docusate Sodium (Julieta-Colace) 1 tab BID PO 04/26/17 09:00 Future Hold 05/06/17 09:02 Miscellaneous Information 1 Q3D T-DERMAL 04/29/17 09:00 04/29/17 08:54 Vancomycin HCl (VANCOMYCIN for oral use only) 125 mg QID PO 04/26/17 09:00 05/14/17 08:41 Hydromorphone HCl (Dilaudid Pf Inj) 2 mg Q2HR PRN IV PUSH pain >5 04/27/17 15:00 05/14/17 02:45 Furosemide (Lasix Inj) 20 mg BID@,18 IV PUSH 04/30/17 18:00 05/14/17 08:42 Multivitamins/ Minerals Therapeutic (Theragran M Tab) 1 tab DAILY PO 05/02/17 09:00 05/14/17 08:42 Filgrastim 300 mcg/Dextrose 25 ml @ 100 mls/hr DAILY@14 IV 05/07/17 14:00 Future hold 05/13/17 13:49 Diphenhydramine HCl (Benadryl) 25 mg Q4H PRN PO SEE LABEL COMMENTS 05/07/17 11:30 05/07/17 18:55 Warfarin Sodium (Coumadin) 4 mg DAILY@16 PO 05/08/17 16:00 05/13/17 17:35 Morphine Sulfate (Oramorph Sr) 100 mg Q8H PO 1/2/18 18:00 05/14/17 08:42 Heparin Sodium (Porcine) (Heparin Central Flush) 250 units UNSCH PRN IV FLUSH SEE PROTOCOL TABLE 05/10/17 21:00 05/13/17 04:35 Heparin Sodium (Porcine) (Heparin Central Flush) 500 units UNSCH IV FLUSH 05/10/17 21:00 05/12/17 06:19 Sodium Chloride (NS Flush) 5 ml UNSCH PRN IV FLUSH AFTER EACH USE 05/10/17 21:00 05/14/17 03:00 Alteplase, Recombinant (Cathflo Activase Inj) 2 mg UNSCH PRN IV FOR PORT OCCLUSION 05/11/17 01:45 05/11/17 02:27 Objective Remarks GENERAL: chronically ill female, lying on right side in bed in nad. SKIN: Warm and dry. HEAD: Normocephalic. EYES: No injection or drainage. NECK: Supple, trachea midline. CARDIOVASCULAR: +S1/S2, tachycardic RESPIRATORY: Breath sounds equal bilaterally. No accessory muscle use. : left nephrostomy tube leaking urine at percutaneous site. GASTROINTESTINAL: Abdomen soft, non-tender, nondistended. EXTREMITIES: No cyanosis. edema noted in bilateral lower extremities. NEUROLOGICAL: awake and alert, normal speech. able to move extremities. Assessment/Plan Problem List: (1) Pancytopenia ICD Codes: D61.818 - Other pancytopenia Plan: --likely d/t chemotherapy --may need to hold coumadin if counts continue to drop. --monitor for bleeding. --Neupogen resumed 05/13 (2) Metastatic disease ICD Codes: C79.9 - Secondary malignant neoplasm of unspecified site Plan: Mrs. Dubon reports a history of cancer of the uterus/cervix diagnosed in 2005, she was living in [place] at that time and underwent biopsy and treatment with chemotherapy and radiation at [facility]. Records will be requested from there. She remained in remission until 2014, she developed lower abdominal pain and was found to have a mass in the uterus, she underwent hysterectomy followed by chemotherapy at [facility] in [place], [place]. Since then she has been found to have what appears to be recurrent disease with multifocal liver metastases as well as multifocal pulmonary metastases. She has chronic ureteric obstruction likely due to her previous gynecologic malignancies and radiation and surgery rendered for treatment of this diagnosis. Now on treatment for metastatic adenocarcinoma; based on her clinical history, previous history of relapsing recurrent gynecologic malignancy I suspect she now has metastatic adenocarcinoma of the uterine origin or at least gynecologic origin. She is on carboplatin based therapy with Avastin which is appropriate treatment. --s/p day 8 gemcitabine 05/10 05/11: I called and requested slides from patient's pathology obtained during hysterectomy in [facility] in [place], [place] in 2014. Also requested records through the same hospital. (3) Cancer associated pain ICD Codes: G89.3 - Neoplasm related pain (acute) (chronic) Status: Acute Plan: --PET scan shows diffuse disease in lungs, abdomen and skeleton. --currently on ORAMORPH 60mg PO q 8+ Dilaudid 2mg IV q 2 hours (4) DVT (deep venous thrombosis) ICD Codes: I82.409 - Acute embolism and thrombosis of unspecified deep veins of unspecified lower extremity Status: Chronic Plan: --on coumadin (5) C. difficile diarrhea ICD Codes: A04.72 - Enterocolitis due to Clostridium difficile, not specified as recurrent Plan: --on PO Vanco --repeat stool +Cdiff on 05/06 (6) Sacral decubitus ulcer ICD Codes: L89.159 - Pressure ulcer of sacral region, unspecified stage Plan: --wound care following. Assessment 51y/o female with stage IV adenocarcinoma, with liver and lung metastasis with unknown primary admitted with intractable pain mostly in lower spine. --was residing in [facility] and according to the patient she received radiation and chemotherapy. Subsequently she moved to [place] and [place]. --recently had DVT in her left lower extremity. was in [place] at that time. has been on anticoagulation. PET scan-->diffuse disease involving her lung, abdomen and bones. history of cervical cancer in 2006 treated with chemotherapy and radiation treatments. Bilateral lower extremity DVT Severe peripheral neuropathy. Plan 1. monitor CBC, CMP 2. consult radiation oncology for evaluation of leaking left nephrostomy tube. 3. continue coumadin 4. continue neupogen 5. monitor closely for fever. low threshold for starting IV Cefepime. Attending Statement The exam, history, and the medical decision-making described in the above note were completed with the assistance of the mid-level provider. I reviewed and agree with the findings presented. I attest that I had a [id number] encounter with the patient on the same day, and personally performed and documented my assessment and findings in the medical record. Problem Qualifiers (1) DVT (deep venous thrombosis): (2) Sacral decubitus ulcer: Qualified Codes: L89.159 - Pressure ulcer of sacral region, unspecified stage Debra Newell May 14, 2017 09:13 Coleman Hester MD May 14, 2017 22:54
[2017-05-14] MEDS: FILGRASTIM INJ 300 MCG in DEXTROSE 5% IN WATER INJ 24 ML IV SCH ×2 (12:19)
--- NOTE | 2017-05-14 16:10 | HHI.HCPN ---
Palliative care follow-up for ongoing support and conversations regarding goals of care. Ms. Dubon currently sitting up at bedside. She is alert, oriented, and able to make her needs known. Appropriate throughout conversation. Nurse exiting room reports some change in heart rate today (130s). In discussion with Ms. Dubon she reports her "heart races normally", feels this is nothing different from baseline essentially. She reports a good appetite and continued pain control with current medication regiment. States she only needs breakthrough medication when she fell asleep in the bedside chair. Reports she was just getting ready to contact her daughter. Denies any further questions or concerns at this time. Appreciative of visit and welcomes ongoing palliative care visits PRN. Palliative care will continue to follow throughout hospitalization. Goals remain aggressive at this time. Haylee De La Rosa, DRAFTER TOPOGRAPHICAL May 14, 2017 16:10
[2017-05-14] MEDS: WARFARIN SOD 4 MG TAB PO SCH (17:51)
--- NOTE | 2017-05-14 23:48 | HHI.PR ---
Subjective Remarks Patient seen today around noon. She denies any chest pain or shortness of breath. Denies any chills. Objective Vital Signs Date Time Temp Pulse Resp B/P (MAP) Pulse Ox O2 Delivery O2 Flow Rate FiO2 05/14/17 23:20 99.3 05/14/17 23:19 97.7 122 18 99/48 (65) 97 05/14/17 20:36 120 05/14/17 19:40 100.0 132 16 117/69 (85) 100 05/14/17 17:05 131 05/14/17 15:45 96.3 123 18 153/83 (106) 100 05/14/17 12:27 98.6 126 18 105/55 (72) 97 05/14/17 10:35 97.6 05/14/17 08:44 141 18 109/54 (72) 97 05/14/17 04:04 115 05/14/17 04:02 16 05/14/17 03:01 98.6 123 16 116/64 (81) 95 05/14/17 01:07 131 05/14/17 00:50 99.8 128 18 122/62 (82) 97 05/14/17 00:13 123 I/O 05/14/17 05/14/17 05/14/17 05/15/17 05/15/17 05/15/17 07:00 15:00 23:00 07:00 15:00 23:00 Intake Total 240 ml Output Total 400 ml 350 ml 650 ml 200 ml Balance -160 ml -350 ml -650 ml -200 ml Intake Oral 240 ml Output Urine Total 250 ml 450 ml 100 ml Drainage Total 150 ml 350 ml 200 ml 100 ml Bladder Scan Volume Amount 325 ml # Bowel Movements 1 Result Diagram: 05/14/17 0300 05/14/17 0300 Objective Remarks GENERAL: patient sitting up in bed. Appears comfortable. SKIN: Warm and dry. HEAD: Normocephalic. EYES: No scleral icterus. No injection or drainage. NECK: Supple, trachea midline. No JVD. CARDIOVASCULAR: Regular rate and rhythm without murmurs, gallops, or rubs. RESPIRATORY: Breath sounds equal bilaterally. No accessory muscle use. GASTROINTESTINAL: Abdomen soft, non-tender, nondistended. MUSCULOSKELETAL: No cyanosis, or edema. BACK: Nontender without obvious deformity. No CVA tenderness. A/P Assessment and Plan //Metastatic Disease Stage IV adenocarcinoma of unknown primary origin Undergoing chemotherapy while she is here Oncology following = Currently neutropenic. Discussed with oncology. Workup for possible infection, however no fevers. //Cancer Associated Pain Ontomorph 60mg Q8 with Dilaudid 2mg Q2 MRI of lumbar spine did not find spread of cancer there PET scan from earlier shows pervasive disease = Oncology following. Appreciate assistance //Tachycardia Chronic, patient declined offer for metoprolol TSH normal //Anemia S/p transfusion of 2 units PRBC H&H remain stable = Hematology following. Appreciate assistance //C Diff Diarrhea Improving, more formed stools Continue PO Vancomycin Will recheck c. diff Toxin to determine if it is cleared = Still with C. difficile positive. Patient continues with occasional loose bowel movements. Will continue vancomycin. //Pseudomonas UTI Continue Cefepime Suprapubic catheter present Consider hematuria as possible source of blood loss if Hgb trends downward again //Sacral Ulcer Wound care consult //Acute Renal Failure Following BUN/Cr //h/o DVT Continue Coumadin Discharge Planning patient now neutropenic. Oncology following. No longer appropriate for dischargeat this time. James Beverly MD May 14, 2017 23:48
[2017-05-15] VITALS (15 sets, daily range): BP systolic 94–119; BP diastolic 50–68; PULSE 108–132; RESP 16–20; TEMP 97.2–99.8; O2SAT 6–100
[2017-05-15] MEDS: MORPHINE SULFATE 100 MG CONTROLLED RELEASE TAB PO SCH ×3 (03:37→18:43)
[2017-05-15] MEDS: SODIUM CHLORIDE 0.9% FLUSH 10 ML FLUSH IV FLUSH PRN ×2 (03:46)
[2017-05-15 04:37] LABS: AUTOMATED NEUTROPHIL # 0.7 TH/MM3 (1.8-7.7); BASOPHIL % 0.3 % (0.0-2.0); EOSINOPHIL % 0.7 % (0.0-4.0); HEMATOCRIT 23.4 % (35.0-46.0); HEMOGLOBIN 7.7 GM/DL (11.6-15.3); LYMPH % 43.6 % (9.0-44.0); LYMPHOCYTE # 0.6 TH/MM3 (1.0-4.8); MEAN CELL VOLUME 87.4 FL (80.0-100.0); MEAN CORPUSCULAR HGB CONC 33.1 % (32.0-36.0); MEAN PLATELET VOLUME 8.6 FL (7.0-11.0); MONO % 1.8 % (0.0-8.0); NEUT % 53.6 % (16.0-70.0); PLATELET COUNT 85 TH/MM3 (150-450); RED BLOOD COUNT 2.67 MIL/MM3 (4.00-5.30); RED CELL DISTRIBUTION WIDTH 16.3 % (11.6-17.2); WHITE BLOOD COUNT 1.3 TH/MM3 (4.0-11.0)
[2017-05-15 04:51] LABS: INTERNATIONAL NORMALIZED RATIO 2.3 RATIO; PROTHROMBIN TIME - PATIENT 22.8 SEC (9.8-11.6)
[2017-05-15 05:11] LABS: BICARBONATE 29.6 MEQ/L (21.0-32.0); CALCIUM 8.8 MG/DL (8.5-10.1); CREATININE 1.01 MG/DL (0.50-1.00)
[2017-05-15 05:29] LABS: BANDS 8 % (0-6); LYMPHOCYTES 36 % (9-44); METAMYELOCYTES 2 % (0-1); NEUTROPHIL # MANUAL DIFF 0.8 TH/MM3 (1.8-7.7); POLYS (SEG NEUTROPHILS) 54 % (16-70)
[2017-05-15] MEDS ORDERED: ACETAMINOPHEN 325 MG TAB PO PRN (07:45)
[2017-05-15] MEDS ORDERED: SODIUM CHLORID 0.9% 500 ML INJ 500 ML IV ONE (07:45)
[2017-05-15] MEDS ORDERED: diphenhydrAMINE HCL 25 MG CAP PO PRN (07:45)
[2017-05-15] MEDS ORDERED: SODIUM CHLOR 0.9% 250 ML INJ 250 ML IV ONE ×2 (07:45→08:45)
[2017-05-15] MEDS: MULTIVITAMINS/MINERALS THERAPEUTIC TAB PO SCH (08:28)
[2017-05-15] MEDS: VANCOMYCIN 500 MG VIAL (FOR ORAL USE ONLY) PO SCH ×4 (08:29→22:22)
[2017-05-15] MEDS: FUROSEMIDE 20 MG/2 ML VIAL IV PUSH SCH ×2 (08:29→18:43)
[2017-05-15 09:04] LABS: BILIRUBIN, URINE NEG (NEG); BLOOD, URINE LARGE (NEG); GLUCOSE,URINE NEG (NEG); KETONE, URINE NEG (NEG); MUCUS URINE FEW /lpf (OCC); NITRITE,URINE NEG (NEG); PH, URINE 6.5 (5.0-8.5); SQUAMOUS EPITHELIAL CELL URINE 1 /hpf (0-5); URINE COLOR YELLOW (YELLW/STRAW); URINE LEUKOCYTE ESTERASE NEG (NEG)
[2017-05-15] MEDS: SODIUM CHLOR 0.9% 1000 ML INJ 1,000 ML IV SCH ×3 (09:12→23:50)
--- NOTE | 2017-05-15 09:34 | RADRPT ---
EXAM DATE/TIME: 05/15/2017 08:25 [facility] COMPARISON: CHEST SINGLE AP, April 25, 2017, 13:33. INDICATIONS : Fever. Metastatic disease with pulmonary nodules. MEDICAL HISTORY : Hypertension. cervical cancer, deep vein thrombosis SURGICAL HISTORY : Hysterectomy. Nephrostomy tube. ENCOUNTER: Subsequent ACUITY: 2 days PAIN SCORE: 0/10 LOCATION: Bilateral chest FINDINGS: A single AP erect portable view of the chest was obtained and again demonstrates a mobile mass projec jas over the right lung base without significant change. There are additional more subtle scattered p ulmonary nodules again noted in both lungs. There are no confluent infiltrates or effusions. The hear t and mediastinal structures remain within normal limits. The implantable right subclavian central ve nous line remains in place. Bony thorax is intact. CONCLUSION: 1. No evidence of pneumonia. 2. Bilateral pulmonary nodules again noted. Bladimir Talbert MD on May 15, 2017 at 9:30 Board Certified Radiologist. This report was verified electronically.
[2017-05-15] MEDS: CEFEPIME INJ 2,000 MG in SODIUM CHLORIDE 0.9% INJ 100 ML IV SCH ×2 (11:53→18:46)
--- NOTE | 2017-05-15 13:04 | PD.ONC.PN ---
Subjective Subjective Remarks Tmax 100F overnight. "I feel good today." states pressure ulcer is the only area that's bothering her today. No chills or cough. Objective Data Date Time Temp Pulse Resp B/P (MAP) Pulse Ox O2 Delivery O2 Flow Rate FiO2 05/15/17 08:00 108 05/15/17 07:59 99.1 111 18 101/57 (72) 100 05/15/17 04:12 16 05/15/17 04:03 111 05/15/17 03:47 99.5 122 16 94/50 (65) 96 05/15/17 03:47 97.9 05/15/17 00:14 16 05/15/17 00:00 109 05/14/17 23:20 99.3 05/14/17 23:19 97.7 122 18 99/48 (65) 97 05/14/17 20:36 120 05/14/17 19:40 100.0 132 16 117/69 (85) 100 05/14/17 17:05 131 05/14/17 15:45 96.3 123 18 153/83 (106) 100 05/15/17 05/15/17 05/15/17 06:59 14:59 22:59 Intake Total 120 ml Output Total 500 ml Balance -380 ml Result Diagram: 05/15/17 0335 05/15/17 0335 Laboratory Results Laboratory Tests Test 05/15/17 03:35 05/15/17 08:10 White Blood Count 1.3 TH/MM3 Red Blood Count 2.67 MIL/MM3 Hemoglobin 7.7 GM/DL Hematocrit 23.4 % Mean Corpuscular Volume 87.4 FL Mean Corpuscular Hemoglobin 29.0 PG Mean Corpuscular Hemoglobin Concent 33.1 % Red Cell Distribution Width 16.3 % Platelet Count 85 TH/MM3 Mean Platelet Volume 8.6 FL Neutrophils (%) (Auto) 53.6 % Lymphocytes (%) (Auto) 43.6 % Monocytes (%) (Auto) 1.8 % Eosinophils (%) (Auto) 0.7 % Basophils (%) (Auto) 0.3 % Neutrophils # (Auto) 0.7 TH/MM3 Lymphocytes # (Auto) 0.6 TH/MM3 Monocytes # (Auto) 0.0 TH/MM3 Eosinophils # (Auto) 0.0 TH/MM3 Basophils # (Auto) 0.0 TH/MM3 CBC Comment AUTO DIFF Differential Total Cells Counted 50 Neutrophils % (Manual) 54 % Band Neutrophils % 8 % Lymphocytes % 36 % Neutrophils # (Manual) 0.8 TH/MM3 Metamyelocytes 2 % Differential Comment FINAL DIFF MANUAL Platelet Estimate LOW Platelet Morphology Comment NORMAL Prothrombin Time 22.8 SEC Prothromb Time International Ratio 2.3 RATIO Blood Urea Nitrogen 47 MG/DL Creatinine 1.01 MG/DL Random Glucose 105 MG/DL Calcium Level 8.8 MG/DL Sodium Level 139 MEQ/L Potassium Level 3.7 MEQ/L Chloride Level 101 MEQ/L Carbon Dioxide Level 29.6 MEQ/L Anion Gap 8 MEQ/L Estimat Glomerular Filtration Rate 70 ML/MIN Urine Color YELLOW Urine Turbidity HAZY Urine pH 6.5 Urine Specific [place] 1.014 Urine Protein 300 mg/dL Urine Glucose (UA) NEG mg/dL Urine Ketones NEG mg/dL Urine Occult Blood LARGE Urine Nitrite NEG Urine Bilirubin NEG Urine Urobilinogen LESS THAN 2.0 MG/DL Urine Leukocyte Esterase NEG Urine RBC /hpf Urine WBC 6 /hpf Urine Squamous Epithelial Cells 1 /hpf Urine Granular Casts 6 /lpf Urine Mucus FEW /lpf Microscopic Urinalysis Comment CULT NOT INDICATED Culture Results Microbiology Date/Time Source Procedure Growth Status 05/14/17 11:00 Blood Peripheral Aerobic Blood Culture - Preliminary NO GROWTH IN 1 DAY Resulted 05/14/17 11:00 Blood Peripheral Anaerobic Blood Culture - Preliminary NO GROWTH IN 1 DAY Resulted 05/14/17 10:40 Blood Peripheral Aerobic Blood Culture - Preliminary NO GROWTH IN 1 DAY Resulted 05/14/17 10:40 Blood Peripheral Anaerobic Blood Culture - Preliminary NO GROWTH IN 1 DAY Resulted Imaging Studies Last 24 hours Impressions Chest X-Ray 05/15/17 0000 Signed Impressions: Service Date/Time: Monday, May 15, 2017 08:25 - CONCLUSION: 1. No evidence of pneumonia. 2. Bilateral pulmonary nodules again noted. Bladimir Talbert MD Administered Medications Medications (Trade) Dose Ordered Sig/Erendria Route PRN Reason Start Time Stop Time Status Last Admin Dose Admin Sodium Chloride (NS Flush) 2 ml UNSCH PRN IV FLUSH FLUSH AFTER USING IV ACCESS 04/25/17 18:15 05/15/17 03:46 Sodium Chloride (NS Flush) 2 ml BID IV FLUSH 04/25/17 21:00 05/14/17 08:43 Senna/Docusate Sodium (Julieta-Colace) 1 tab BID PO 04/26/17 09:00 Future Hold 05/06/17 09:02 Miscellaneous Information 1 Q3D T-DERMAL 04/29/17 09:00 04/29/17 08:54 Vancomycin HCl (VANCOMYCIN for oral use only) 125 mg QID PO 04/26/17 09:00 05/15/17 11:55 Hydromorphone HCl (Dilaudid Pf Inj) 2 mg Q2HR PRN IV PUSH pain >5 04/27/17 15:00 05/14/17 02:45 Furosemide (Lasix Inj) 20 mg BID@18 IV PUSH 04/30/17 18:00 05/15/17 08:29 Multivitamins/ Minerals Therapeutic (Theragran M Tab) 1 tab DAILY PO 05/02/17 09:00 05/15/17 08:28 Filgrastim 300 mcg/Dextrose 25 ml @ 100 mls/hr DAILY@14 IV 05/07/17 14:00 Future hold 05/14/17 12:19 Warfarin Sodium (Coumadin) 4 mg DAILY@16 PO 05/08/17 16:00 05/14/17 17:51 Morphine Sulfate (Oramorph Sr) 100 mg Q8H PO 05/08/17 18:00 05/15/17 10:23 Heparin Sodium (Porcine) (Heparin Central Flush) 250 units UNSCH PRN IV FLUSH SEE PROTOCOL TABLE 05/10/17 21:00 05/15/17 03:50 Heparin Sodium (Porcine) (Heparin Central Flush) 500 units UNSCH IV FLUSH 05/10/17 21:00 05/12/17 06:19 Sodium Chloride (NS Flush) 5 ml UNSCH PRN IV FLUSH AFTER EACH USE 05/10/17 21:00 05/15/17 03:46 Alteplase, Recombinant (Cathflo Activase Inj) 2 mg UNSCH PRN IV FOR PORT OCCLUSION 05/11/17 01:45 05/11/17 02:27 Cefepime HCl 2000 mg/Sodium Chloride 100 ml @ 200 mls/hr Q8H IV 05/15/17 11:00 05/15/17 11:53 Acetaminophen (Tylenol) 650 mg Q4H PRN PO SEE LABEL COMMENTS 05/15/17 07:45 05/15/17 11:54 Diphenhydramine HCl (Benadryl) 25 mg Q4H PRN PO SEE LABEL COMMENTS 05/15/17 07:45 05/15/17 11:54 Objective Remarks GENERAL: chronically ill female, supine in bed in nad. SKIN: Warm and dry. HEAD: Normocephalic. EYES: No injection or drainage. NECK: Supple, trachea midline. CARDIOVASCULAR: +S1/S2, +tachy RESPIRATORY: Breath sounds equal bilaterally. No accessory muscle use. : left nephrostomy tube no longer leaking fluid. suprapubic catheter in place. GASTROINTESTINAL: Abdomen soft, non-tender, nondistended. EXTREMITIES: No cyanosis. ble with moderate edema. NEUROLOGICAL: aox3. normal speech. moving all extremities. Assessment/Plan Problem List: (1) Pancytopenia ICD Codes: D61.818 - Other pancytopenia Plan: --d/t chemotherapy --monitor for bleeding. --Neupogen resumed 05/13 (2) Metastatic disease ICD Codes: C79.9 - Secondary malignant neoplasm of unspecified site Plan: Mrs. Dubon reports a history of cancer of the uterus/cervix diagnosed in 2005, she was living in [place] at that time and underwent biopsy and treatment with chemotherapy and radiation at [facility]. Records will be requested from there. She remained in remission until 2014, she developed lower abdominal pain and was found to have a mass in the uterus, she underwent hysterectomy followed by chemotherapy at [facility] in [place], [place]. Since then she has been found to have what appears to be recurrent disease with multifocal liver metastases as well as multifocal pulmonary metastases. She has chronic ureteric obstruction likely due to her previous gynecologic malignancies and radiation and surgery rendered for treatment of this diagnosis. Now on treatment for metastatic adenocarcinoma; based on her clinical history, previous history of relapsing recurrent gynecologic malignancy I suspect she now has metastatic adenocarcinoma of the uterine origin or at least gynecologic origin. She is on carboplatin based therapy with Avastin which is appropriate treatment. --s/p day 8 gemcitabine 05/10 05/11: I called and requested slides from patient's pathology obtained during hysterectomy in [facility] in [place], [place] in 2014. Also requested records through the same hospital. (3) Cancer associated pain ICD Codes: G89.3 - Neoplasm related pain (acute) (chronic) Status: Acute Plan: --PET scan shows diffuse disease in lungs, abdomen and skeleton. --currently on ORAMORPH 60mg PO q 8+ Dilaudid 2mg IV q 2 hours (4) DVT (deep venous thrombosis) ICD Codes: I82.409 - Acute embolism and thrombosis of unspecified deep veins of unspecified lower extremity Status: Chronic Plan: --on coumadin (5) C. difficile diarrhea ICD Codes: A04.72 - Enterocolitis due to Clostridium difficile, not specified as recurrent Plan: --on PO Vanco --repeat stool +Cdiff on 05/06 (6) Sacral decubitus ulcer ICD Codes: L89.159 - Pressure ulcer of sacral region, unspecified stage Plan: --wound care following. Assessment 51y/o female with stage IV adenocarcinoma, with liver and lung metastasis with unknown primary admitted with intractable pain mostly in lower spine. --was residing in [facility] and according to the patient she received radiation and chemotherapy. Subsequently she moved to [facility]. --recently had DVT in her left lower extremity. was in [place] at that time. has been on anticoagulation. PET scan-->diffuse disease involving her lung, abdomen and bones. history of cervical cancer in 2005 treated with chemotherapy and radiation treatments. Bilateral lower extremity DVT Severe peripheral neuropathy. Plan 1. continue Neupogen 2. start IV Cefepime for fever overnight. 3. monitor blood cultures 4. give 1 unit pRBC 5. start IVF Attending Statement The exam, history, and the medical decision-making described in the above note were completed with the assistance of the mid-level provider. I reviewed and agree with the findings presented. I attest that I had a [id number] encounter with the patient on the same day, and personally performed and documented my assessment and findings in the medical record. appears to be getting weaker over the last 2 days No PT today. apparently she was having lunch when PT arrived low grade fevers Blood cx negative UA ordered--no apparent infection Hb dropping and symptomatic pRBC transfusion IV cefepime repeat blood cultures in AM if febrile continue Neupogen will be difficult to give Avastin as she has non-healing sacral ulcer path comparison pending complicated patient with multiple issues overall poor prognosis declining PFS and Stage IV disease d/w rn o/n events reviewed Problem Qualifiers (1) DVT (deep venous thrombosis): (2) Sacral decubitus ulcer: Qualified Codes: L89.159 - Pressure ulcer of sacral region, unspecified stage Debra Newell May 15, 2017 13:03 Coleman Hester MD May 15, 2017 20:27
[2017-05-15] MEDS: SODIUM CHLORIDE 0.9% FLUSH 10 ML FLUSH IV FLUSH SCH ×2 (15:16→21:00)
[2017-05-15] MEDS: HYDROmorphone HCL PF 2 MG/ML VIAL IV PUSH PRN (15:17)
[2017-05-15] MEDS: WARFARIN SOD 4 MG TAB PO SCH (15:18)
[2017-05-15] MEDS: FILGRASTIM INJ 300 MCG in DEXTROSE 5% IN WATER INJ 24 ML IV SCH ×2 (15:18)
--- NOTE | 2017-05-15 19:10 | HHI.PR ---
Subjective Remarks Patient says she is feeling all right. Denies any chest pain shortness breath. She denies any diarrhea, however continues to have intermittent loose bowel movements. Denies any abdominal pain. Objective Vital Signs Date Time Temp Pulse Resp B/P (MAP) Pulse Ox O2 Delivery O2 Flow Rate FiO2 05/15/17 18:40 99.5 131 18 110/62 (78) 100 05/15/17 16:00 97.2 124 20 119/68 100 05/15/17 15:12 97.2 120 18 119/68 (85) 99 05/15/17 13:28 98.4 132 20 99/51 98 05/15/17 13:16 98.4 128 18 102/50 97 05/15/17 08:00 108 05/15/17 07:59 99.1 111 18 101/57 (72) 100 05/15/17 04:12 16 05/15/17 04:03 111 05/15/17 03:47 99.5 122 16 94/50 (65) 96 05/15/17 03:47 97.9 05/15/17 00:14 16 05/15/17 00:00 109 05/14/17 23:20 99.3 05/14/17 23:19 97.7 122 18 99/48 (65) 97 05/14/17 20:36 120 05/14/17 19:40 100.0 132 16 117/69 (85) 100 I/O 05/14/17 05/14/17 05/14/17 05/15/17 05/15/17 05/15/17 06:59 14:59 22:59 06:59 14:59 22:59 Intake Total 240 ml 120 ml 600 ml 428 ml Output Total 400 ml 350 ml 650 ml 500 ml Balance -160 ml -350 ml -650 ml -380 ml 600 ml 428 ml Intake Oral 240 ml 120 ml IV Total 600 ml 28 ml Packed Cells 400 ml Output Urine Total 250 ml 450 ml 200 ml Drainage Total 150 ml 350 ml 200 ml 300 ml Bladder Scan Volume Amount 325 ml # Bowel Movements 1 1 Result Diagram: 05/15/1733405/15/17334 Objective Remarks GENERAL: patient sitting up in bed watching television and eating. Legs crossed underneath her. Appears comfortable. SKIN: Warm and dry. HEAD: Normocephalic. EYES: No scleral icterus. No injection or drainage. NECK: Supple, trachea midline. No JVD. CARDIOVASCULAR: Regular rate and rhythm without murmurs, gallops, or rubs. RESPIRATORY: Breath sounds equal bilaterally. No accessory muscle use. GASTROINTESTINAL: Abdomen soft, non-tender, nondistended. MUSCULOSKELETAL: No cyanosis, or edema. BACK: Nontender without obvious deformity. No CVA tenderness. A/P Assessment and Plan = 05/15/17 Patient had low-grade fever overnight. Starting on treatment for neutropenic fever. Appreciate oncology assistance. We'll consult infectious disease due to C. difficile to address length of treatment and patient with neutropenia, continued intermittent loose bowel movements.. 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 Discussed with oncology again. Workup for possible infection, however no fevers. Patient started on cefepime 05/15. Appreciate oncology assistance. Neutrophils 0.8, slowly improving after Neupogen. //Cancer Associated Pain Ontomorph 60mg Q8 with Dilaudid 2mg Q2 MRI of lumbar spine did not find spread of cancer there PET scan from earlier shows pervasive disease = Oncology following. Appreciate assistance //Tachycardia Chronic, patient declined offer for metoprolol TSH normal //Anemia S/p transfusion of 2 units PRBC H&H remain stable = Hemoglobin 7.7. No signs of bleeding. Continue to monitor. Gastroenterology following. Appreciate assistance. //C Diff Diarrhea Improving, more formed stools Continue PO Vancomycin Will recheck c. diff Toxin to determine if it is cleared = Still with C. difficile positive. Patient continues with occasional loose bowel movements. Will continue vancomycin. = Consult infectious disease to advise on length of treatment in this patient with neutropenia, continued intermittent loose bowel movement. //Pseudomonas UTI Continue Cefepime Suprapubic catheter present Consider hematuria as possible source of blood loss if Hgb trends downward again //Sacral Ulcer Wound care consult appreciated //Acute Renal Failure Following BUN/Cr //h/o DVT Continue Coumadin Discharge Planning patient now neutropenic. Oncology following. No longer appropriate for dischargeat this time. James Beverly MD May 15, 2017 19:10
[2017-05-16] VITALS (9 sets, daily range): BP systolic 91–112; BP diastolic 50–73; PULSE 102–122; RESP 16–18; TEMP 98–99.4; O2SAT 98–100
[2017-05-16] MEDS: MORPHINE SULFATE 100 MG CONTROLLED RELEASE TAB PO SCH ×3 (02:37→18:44)
[2017-05-16] MEDS: CEFEPIME INJ 2,000 MG in SODIUM CHLORIDE 0.9% INJ 100 ML IV SCH ×3 (02:38→18:43)
[2017-05-16 03:34] LABS: AUTOMATED NEUTROPHIL # 1.8 TH/MM3 (1.8-7.7); BASOPHIL % 0.2 % (0.0-2.0); EOSINOPHIL % 0.1 % (0.0-4.0); HEMATOCRIT 24.7 % (35.0-46.0); HEMOGLOBIN 8.1 GM/DL (11.6-15.3); LYMPH % 25.5 % (9.0-44.0); LYMPHOCYTE # 0.6 TH/MM3 (1.0-4.8); MEAN CELL VOLUME 87.2 FL (80.0-100.0); MEAN CORPUSCULAR HEMOGLOBIN 28.8 PG (27.0-34.0); MEAN CORPUSCULAR HGB CONC 33.1 % (32.0-36.0); MEAN PLATELET VOLUME 8.4 FL (7.0-11.0); MONO % 3.2 % (0.0-8.0); MONOCYTE # 0.1 TH/MM3 (0-0.9); PLATELET COUNT 69 TH/MM3 (150-450); RED BLOOD COUNT 2.83 MIL/MM3 (4.00-5.30); RED CELL DISTRIBUTION WIDTH 16.5 % (11.6-17.2); WHITE BLOOD COUNT 2.5 TH/MM3 (4.0-11.0)
[2017-05-16 03:44] LABS: INTERNATIONAL NORMALIZED RATIO 2.5 RATIO; PROTHROMBIN TIME - PATIENT 25.1 SEC (9.8-11.6)
[2017-05-16 03:56] LABS: BICARBONATE 29.7 MEQ/L (21.0-32.0); CALCIUM 8.3 MG/DL (8.5-10.1); CREATININE 0.93 MG/DL (0.50-1.00)
[2017-05-16 05:00] LABS: BANDS 22 % (0-6); LYMPHOCYTES 25 % (9-44); METAMYELOCYTES 7 % (0-1); MONOCYTES 2 % (0-8); NEUTROPHIL # MANUAL DIFF 1.8 TH/MM3 (1.8-7.7); POLYS (SEG NEUTROPHILS) 44 % (16-70)
[2017-05-16 05:05] LABS: DOHLE BODIES PRESENT (NONE SEEN)
[2017-05-16] MEDS: SODIUM CHLOR 0.9% 1000 ML INJ 1,000 ML IV SCH ×2 (09:20→21:00)
[2017-05-16] MEDS: VANCOMYCIN 500 MG VIAL (FOR ORAL USE ONLY) PO SCH ×4 (09:25→21:00)
[2017-05-16] MEDS: MULTIVITAMINS/MINERALS THERAPEUTIC TAB PO SCH (09:25)
[2017-05-16] MEDS: FUROSEMIDE 20 MG/2 ML VIAL IV PUSH SCH (09:25)
[2017-05-16] MEDS: SODIUM CHLORIDE 0.9% FLUSH 10 ML FLUSH IV FLUSH SCH ×2 (09:27→21:00)
--- NOTE | 2017-05-16 12:26 | PD.ONC.PN ---
Subjective Subjective Remarks Afebrile overnight. Resting comfortably in bed in nad. No complaints. Objective Data Date Time Temp Pulse Resp B/P (MAP) Pulse Ox O2 Delivery O2 Flow Rate FiO2 05/16/17 11:39 98.9 109 18 107/56 (73) 98 05/16/17 09:17 98.4 115 18 102/50 (67) 100 05/16/17 04:09 108 05/16/17 04:01 16 05/16/17 03:30 99.3 117 16 91/50 (64) 98 05/16/17 00:32 99.4 122 16 101/53 (69) 99 05/15/17 23:46 124 05/15/17 20:14 132 05/15/17 20:01 99.1 05/15/17 20:01 99.8 132 18 118/66 (83) 99 05/15/17 18:40 99.5 131 18 110/62 (78) 100 05/15/17 16:00 97.2 124 20 119/68 100 05/15/17 15:12 97.2 120 18 119/68 (85) 99 05/15/17 13:28 98.4 132 20 99/51 98 05/15/17 13:16 98.4 128 18 102/50 97 05/16/17 05/16/17 05/16/17 07:00 15:00 23:00 Intake Total 805 ml 500 ml Output Total 250 ml Balance 555 ml 500 ml Result Diagram: 05/16/17 0300 05/16/17 0300 Laboratory Results Laboratory Tests Test 05/16/17 03:00 White Blood Count 2.5 TH/MM3 Red Blood Count 2.83 MIL/MM3 Hemoglobin 8.1 GM/DL Hematocrit 24.7 % Mean Corpuscular Volume 87.2 FL Mean Corpuscular Hemoglobin 28.8 PG Mean Corpuscular Hemoglobin Concent 33.1 % Red Cell Distribution Width 16.5 % Platelet Count 69 TH/MM3 Mean Platelet Volume 8.4 FL Neutrophils (%) (Auto) 71.0 % Lymphocytes (%) (Auto) 25.5 % Monocytes (%) (Auto) 3.2 % Eosinophils (%) (Auto) 0.1 % Basophils (%) (Auto) 0.2 % Neutrophils # (Auto) 1.8 TH/MM3 Lymphocytes # (Auto) 0.6 TH/MM3 Monocytes # (Auto) 0.1 TH/MM3 Eosinophils # (Auto) 0.0 TH/MM3 Basophils # (Auto) 0.0 TH/MM3 CBC Comment AUTO DIFF Differential Total Cells Counted 100 Neutrophils % (Manual) 44 % Band Neutrophils % 22 % Lymphocytes % 25 % Monocytes % 2 % Neutrophils # (Manual) 1.8 TH/MM3 Metamyelocytes 7 % Differential Comment FINAL DIFF MANUAL Dohle Bodies PRESENT Platelet Estimate LOW Platelet Morphology Comment NORMAL Red Cell Morphology Comment NORMAL Prothrombin Time 25.1 SEC Prothromb Time International Ratio 2.5 RATIO Blood Urea Nitrogen 48 MG/DL Creatinine 0.93 MG/DL Random Glucose 110 MG/DL Calcium Level 8.3 MG/DL Sodium Level 139 MEQ/L Potassium Level 3.7 MEQ/L Chloride Level 102 MEQ/L Carbon Dioxide Level 29.7 MEQ/L Anion Gap 7 MEQ/L Estimat Glomerular Filtration Rate 77 ML/MIN Culture Results Microbiology Date/Time Source Procedure Growth Status 05/14/17 11:00 Blood Peripheral Aerobic Blood Culture - Preliminary NO GROWTH IN 2 DAYS Resulted 05/14/17 11:00 Blood Peripheral Anaerobic Blood Culture - Preliminary NO GROWTH IN 2 DAYS Resulted 05/14/17 10:40 Blood Peripheral Aerobic Blood Culture - Preliminary NO GROWTH IN 2 DAYS Resulted 05/14/17 10:40 Blood Peripheral Anaerobic Blood Culture - Preliminary NO GROWTH IN 2 DAYS Resulted Administered Medications Medications (Trade) Dose Ordered Sig/Erendira Route PRN Reason Start Time Stop Time Status Last Admin Dose Admin Sodium Chloride (NS Flush) 2 ml UNSCH PRN IV FLUSH FLUSH AFTER USING IV ACCESS 04/25/17 18:15 05/15/17 03:46 Sodium Chloride (NS Flush) 2 ml BID IV FLUSH 04/25/17 21:00 05/16/17 09:27 Senna/Docusate Sodium (Julieta-Colace) 1 tab BID PO 04/26/17 09:00 Future Hold 05/06/17 09:02 Miscellaneous Information 1 Q3D T-DERMAL 04/29/17 09:00 04/29/17 08:54 Vancomycin HCl (VANCOMYCIN for oral use only) 125 mg QID PO 04/26/17 09:00 05/16/17 09:25 Hydromorphone HCl (Dilaudid Pf Inj) 2 mg Q2HR PRN IV PUSH pain >5 04/27/17 15:00 05/15/17 15:17 Furosemide (Lasix Inj) 20 mg BID@18 IV PUSH 04/30/17 18:00 05/16/17 09:25 Multivitamins/ Minerals Therapeutic (Theragran M Tab) 1 tab DAILY PO 05/02/17 09:00 05/16/17 09:25 Filgrastim 300 mcg/Dextrose 25 ml @ 100 mls/hr DAILY@14 IV 05/07/17 14:00 Future hold 05/15/17 15:18 Warfarin Sodium (Coumadin) 4 mg DAILY@16 PO 05/08/17 16:00 Future Hold 05/15/17 15:18 Morphine Sulfate (Oramorph Sr) 100 mg Q8H PO 05/08/17 18:00 05/16/17 09:27 Heparin Sodium (Porcine) (Heparin Central Flush) 250 units UNSCH PRN IV FLUSH SEE PROTOCOL TABLE 05/10/17 21:00 05/15/17 03:50 Heparin Sodium (Porcine) (Heparin Central Flush) 500 units UNSCH IV FLUSH 05/10/17 21:00 05/12/17 06:19 Sodium Chloride (NS Flush) 5 ml UNSCH PRN IV FLUSH AFTER EACH USE 05/10/17 21:00 05/15/17 03:46 Alteplase, Recombinant (Cathflo Activase Inj) 2 mg UNSCH PRN IV FOR PORT OCCLUSION 05/11/17 01:45 05/11/17 02:27 Sodium Chloride 1,000 ml @ 100 mls/hr Q10H IV 05/15/17 07:45 05/16/17 09:20 Cefepime HCl 2000 mg/Sodium Chloride 100 ml @ 200 mls/hr Q8H IV 05/15/17 11:00 05/16/17 11:38 Acetaminophen (Tylenol) 650 mg Q4H PRN PO SEE LABEL COMMENTS 05/15/17 07:45 05/15/17 11:54 Diphenhydramine HCl (Benadryl) 25 mg Q4H PRN PO SEE LABEL COMMENTS 05/15/17 07:45 05/15/17 11:54 Objective Remarks GENERAL: chronically ill female, upright in bed in nad. appears comfortable. SKIN: Warm and dry. HEAD: Normocephalic. EYES: No injection or drainage. NECK: Supple, trachea midline. CARDIOVASCULAR: tachycardic rate, regular rhythm. RESPIRATORY: Breath sounds equal bilaterally. No accessory muscle use. : left nephrostomy tube and suprapubic catheter both draining clear yellow urine. GASTROINTESTINAL: Abdomen soft, non-tender, nondistended. EXTREMITIES: No cyanosis. mild edema in both legs. NEUROLOGICAL: awake and alert, normal speech. moving extremities. Assessment/Plan Problem List: (1) Pancytopenia ICD Codes: D61.818 - Other pancytopenia Plan: --d/t chemotherapy --monitor for bleeding. --Neupogen resumed 05/13 (2) Metastatic disease ICD Codes: C79.9 - Secondary malignant neoplasm of unspecified site Plan: Mrs. Dubon reports a history of cancer of the uterus/cervix diagnosed in 2005, she was living in [place] at that time and underwent biopsy and treatment with chemotherapy and radiation at [facility]. Records will be requested from there. She remained in remission until 2014, she developed lower abdominal pain and was found to have a mass in the uterus, she underwent hysterectomy followed by chemotherapy at [facility] in [place], [place]. Since then she has been found to have what appears to be recurrent disease with multifocal liver metastases as well as multifocal pulmonary metastases. She has chronic ureteric obstruction likely due to her previous gynecologic malignancies and radiation and surgery rendered for treatment of this diagnosis. Now on treatment for metastatic adenocarcinoma; based on her clinical history, previous history of relapsing recurrent gynecologic malignancy I suspect she now has metastatic adenocarcinoma of the uterine origin or at least gynecologic origin. She is on carboplatin based therapy with Avastin which is appropriate treatment. --s/p day 8 gemcitabine 05/10 05/11: I called and requested slides from patient's pathology obtained during hysterectomy in [facility] in [place], [place] in 2014. Also requested records through the same hospital. 05/16: I called pathology and they are still waiting on slides, they should arrive today. (3) Cancer associated pain ICD Codes: G89.3 - Neoplasm related pain (acute) (chronic) Status: Acute Plan: --PET scan shows diffuse disease in lungs, abdomen and skeleton. --currently on ORAMORPH 60mg PO q 8+ Dilaudid 2mg IV q 2 hours (4) DVT (deep venous thrombosis) ICD Codes: I82.409 - Acute embolism and thrombosis of unspecified deep veins of unspecified lower extremity Status: Chronic Plan: --on coumadin (5) C. difficile diarrhea ICD Codes: A04.72 - Enterocolitis due to Clostridium difficile, not specified as recurrent Plan: --on PO Vanco --repeat stool +Cdiff on 05/06 (6) Sacral decubitus ulcer ICD Codes: L89.159 - Pressure ulcer of sacral region, unspecified stage Plan: --wound care following. Assessment 51y/o female with stage IV adenocarcinoma, with liver and lung metastasis with unknown primary admitted with intractable pain mostly in lower spine. --was residing in [facility] and according to the patient she received radiation and chemotherapy. Subsequently she moved to [place] and [place]. --recently had DVT in her left lower extremity. was in [place] at that time. has been on anticoagulation. PET scan-->diffuse disease involving her lung, abdomen and bones. history of cervical cancer in 2006 treated with chemotherapy and radiation treatments. Bilateral lower extremity DVT Severe peripheral neuropathy. Plan 1. continue Neupogen 2. stop IV dilaudid. start PO dilaudid in preparation for discharge 3. face sheet faxed to new patient referrals. Problem Qualifiers (1) DVT (deep venous thrombosis): (2) Sacral decubitus ulcer: Qualified Codes: L89.159 - Pressure ulcer of sacral region, unspecified stage Debra Newell May 16, 2017 12:26 Coleman Hester MD May 17, 2017 23:06
--- NOTE | 2017-05-16 14:30 | MB ---
cc: MEAGAN BEVERLY MD, FRANKLYN F. MD DATE OF CONSULTATION 05/16/[address] Beverly. REASON FOR CONSULTATION C. difficile. Neutropenia. Still with intermittent loose bowel movements. No abdominal pain. How long to treat? HISTORY OF PRESENT ILLNESS This is a 51-year-old black female who is undergoing chemotherapy treatment for metastatic cancer, unspecified site. The patient has had several positive cultures with C. difficile of the stools. She had a stool sample positive for C. difficile on 04/26/2017, 05/06/2017, and again on 05/13/2017. She is currently receiving oral vancomycin for the C. diff. She has been on that medication since 04/26/2017. The patient is awake and alert and is in no acute distress. She denies abdominal pain. She has an average of approximately 2-3 stools a day, but she states that the stools are definitely improving and are not as watery as before. She also denies nausea or vomiting. The patient is afebrile. White count today is 2.5. White count on 05/14/2017 was 0.7. PAST MEDICAL HISTORY 1. Metastatic carcinoma of unknown primary. 2. History of cervical cancer in 2006 with recurrence in 2016. 3. History of bilateral DVT. 4. Peripheral neuropathy. 5. Chronic kidney disease. 6. History of total hysterectomy. 7. History of tonsillectomy. 8. Hernia repair. 9. Bilateral tubal ligation. ALLERGIES 1. LEVAQUIN. 2. PENICILLIN. 3. METRONIDAZOLE. MEDICATIONS 1. Cefepime. 2. Vancomycin p.o. 3. Dilaudid p.r.n. 4. Morphine sulfate. 5. Filgrastim. 6. Theragran. 7. Lasix. SOCIAL HISTORY No tobacco, no alcohol, no illicit drugs. FAMILY HISTORY Noncontributory. REVIEW OF SYSTEMS Negative 10-point review. PHYSICAL EXAMINATION GENERAL: This is a slender female in no distress. She is awake and alert and oriented. VITAL SIGNS: Temperature 98.9, blood pressure 107/56, respirations 18, heart rate 109. HEENT: Extraocular movements are grossly intact. Pupils are reactive to light. No icterus. Oropharynx has moist mucosa without lesions. NECK: No adenopathy or swelling. LUNGS: Clear to auscultation. HEART: Regular rate and rhythm without murmurs. ABDOMEN: Benign, soft, nontender. RECTAL: Not performed. EXTREMITIES: No clubbing, cyanosis or edema. SKIN: No rash. PSYCHIATRIC: The patient is calm and cooperative. NEUROLOGIC: Nonfocal. LABORATORY WBC 2.5, platelets 69, hemoglobin 8.1. Creatinine 0.93, estimated GFR 77, sodium 139. Liver function tests normal. IMPRESSION C. difficile colitis, currently undergoing treatment. This consultation is requested to recommend duration of therapy. RECOMMENDATIONS Recommendation is to continue the metronidazole for another three weeks and do a taper of the medication. She can be given a taper of Flagyl beginning with seven days of 125 mg p.o. q.6h. followed by seven days 125 mg p.o. q.12h., and then 125 mg p.o. q.24h. for seven days. Her stools are forming and she currently appears to be responding to the treatment. Thank you for this consultation. If she has diarrhea recurring at the end of the taper, a C. difficile test should be repeated. Teo Cowart MD FD/JEANIE /1:27 PM /1:48 PM
[2017-05-16] MEDS: FILGRASTIM INJ 300 MCG in DEXTROSE 5% IN WATER INJ 24 ML IV SCH ×2 (14:50)
--- NOTE | 2017-05-16 15:58 | HHI.PR ---
Subjective Remarks Follow-up for stage IV adenocarcinoma of unknown primary, neutropenia, C. difficile colitis. Patient is currently doing better. No chest pain, shortness of breath, fever or chills. Objective Vitals Vital Signs Date Time Temp Pulse Resp B/P (MAP) Pulse Ox O2 Delivery O2 Flow Rate FiO2 05/16/17 11:39 98.9 109 18 107/56 (73) 98 05/16/17 09:17 98.4 115 18 102/50 (67) 100 05/16/17 07:00 102 05/16/17 04:09 108 05/16/17 04:01 16 05/16/17 03:30 99.3 117 16 91/50 (64) 98 05/16/17 00:32 99.4 122 16 101/53 (69) 99 05/15/17 23:46 124 05/15/17 20:14 132 05/15/17 20:01 99.1 05/15/17 20:01 99.8 132 18 118/66 (83) 99 05/15/17 18:40 99.5 131 18 110/62 (78) 100 05/15/17 16:00 97.2 124 20 119/68 100 I/O 05/15/17 05/15/17 05/15/17 05/16/17 05/16/17 05/16/17 07:00 15:00 23:00 07:00 15:00 23:00 Intake Total 120 ml 600 ml 1118 ml 805 ml 500 ml Output Total 500 ml 950 ml 250 ml Balance -380 ml 600 ml 168 ml 555 ml 500 ml Intake Oral 120 ml 590 ml 200 ml IV Total 600 ml 128 ml 605 ml 500 ml Packed Cells 400 ml Output Urine Total 200 ml 200 ml 100 ml Drainage Total 300 ml 750 ml 150 ml # Bowel Movements 1 1 Result Diagram: 05/16/17 0300 05/16/17 0300 Imaging Last Impressions Chest X-Ray 05/15/17 0000 Signed Impressions: Service Date/Time: Monday, May 15, 2017 08:25 - CONCLUSION: 1. No evidence of pneumonia. 2. Bilateral pulmonary nodules again noted. Bladimir Talbert MD Tube Placement X-Ray 04/27/17 0000 Signed Impressions: Service Date/Time: Thursday, April 27, 2017 17:54 - CONCLUSION: Uncomplicated suprapubic catheter placement. Boubacar Vicente MD Sacrum/Coccyx MRI 04/27/17 0000 Signed Impressions: Service Date/Time: Thursday, April 27, 2017 22:00 - CONCLUSION: Marrow signal changes within the bony elements of the sacrum and ramo potentially related to previous radiation. Soft tissue elements significantly obscured by streak associated with embolization coils and other foreign components in the pelvis. David Miranda MD Lumbar Spine MRI 04/27/17 0000 Signed Impressions: Service Date/Time: Thursday, April 27, 2017 22:00 - CONCLUSION: No acute findings in the lumbar spine. David Miranda MD Lower Extremity Ultrasound 04/25/17 0000 Signed Impressions: Service Date/Time: Tuesday, April 25, 2017 13:34 - CONCLUSION: 1. Enlarged bilateral inguinal lymph nodes. The largest on the right measures 5 cm in diameter. Nodes are suspicious. 2. No DVT. Kwabena Palmer MD Objective Remarks GENERAL: Alert, oriented 3, NAD. SKIN: Warm and dry. HEAD: Normocephalic. EYES: No scleral icterus. No injection or drainage. NECK: Supple, trachea midline. No JVD or lymphadenopathy. CARDIOVASCULAR: Regular rate and rhythm without murmurs, gallops, or rubs. RESPIRATORY: Breath sounds equal bilaterally. No accessory muscle use. GASTROINTESTINAL: Abdomen soft, non-tender, nondistended. MUSCULOSKELETAL: No cyanosis. 1+ lower extremity edema BACK: Nontender without obvious deformity. No CVA tenderness. Procedures None A/P Problem List: (1) Cancer associated pain ICD Code: G89.3 - Neoplasm related pain (acute) (chronic) Status: Acute (2) Protein calorie malnutrition ICD Code: E46 - Unspecified protein-calorie malnutrition (3) Diarrhea ICD Code: R19.7 - Diarrhea, unspecified (4) Metastatic disease ICD Code: C79.9 - Secondary malignant neoplasm of unspecified site (5) C. difficile diarrhea ICD Code: A04.72 - Enterocolitis due to Clostridium difficile, not specified as recurrent Assessment and Plan 51y/o female with stage IV adenocarcinoma, with liver and lung metastasis with unknown primary admitted with intractable pain mostly in lower spine. - Stage IV adenocarcinoma of unknown primary - Pancytopenia - likely due to chemotherapy. - History of DVT. - Oncology following. Patient is currently on Neupogen. - Continue Cefepime. - WBC 2.5K today with neutrophil count 1800. Oncology would like to see WBC > 5K - Hgb 8.1 today. Transfuse if < 7.0. Pt has received two units this admission. - Cancer associated pain - Dilaudid IV changed to PO. - C. Diff colitis - ID recommendations appreciated. We will discharge patient on tapered dose of PO Vancomycin. - UTI with pseudomonas - currently on Cefepime. We can likely discharge patient on Cipro. - YADI resolved. Creatinine 1.58 --> 0.93. - Lower extremity edema - encouraged patient to keep her legs elevated. Will switch IV lasix to PO Torsemide. - Sacral ulcer - wound care consult appreciated. Full code. Warfarin. Charissa Craig DO May 16, 2017 3:58 pm
[2017-05-16] MEDS: HYDROmorphone HCL 4 MG TAB PO PRN (18:47)
[2017-05-17] VITALS (7 sets, daily range): BP systolic 95–115; BP diastolic 57–69; PULSE 96–119; RESP 16–18; TEMP 89.4–98.7; O2SAT 96–100
[2017-05-17] MEDS: MORPHINE SULFATE 100 MG CONTROLLED RELEASE TAB PO SCH ×2 (03:36→10:46)
[2017-05-17] MEDS: HYDROmorphone HCL 4 MG TAB PO PRN (03:37)
[2017-05-17] MEDS: CEFEPIME INJ 2,000 MG in SODIUM CHLORIDE 0.9% INJ 100 ML IV SCH ×2 (04:41→12:38)
[2017-05-17 07:02] LABS: AUTOMATED NEUTROPHIL # 3.4 TH/MM3 (1.8-7.7); BASOPHIL % 0.2 % (0.0-2.0); EOSINOPHIL % 0.1 % (0.0-4.0); HEMOGLOBIN 7.5 GM/DL (11.6-15.3); LYMPH % 14.4 % (9.0-44.0); LYMPHOCYTE # 0.6 TH/MM3 (1.0-4.8); MEAN CELL VOLUME 88.6 FL (80.0-100.0); MEAN CORPUSCULAR HEMOGLOBIN 28.8 PG (27.0-34.0); MEAN CORPUSCULAR HGB CONC 32.5 % (32.0-36.0); MEAN PLATELET VOLUME 8.5 FL (7.0-11.0); MONO % 2.7 % (0.0-8.0); MONOCYTE # 0.1 TH/MM3 (0-0.9); NEUT % 82.6 % (16.0-70.0); PLATELET COUNT 52 TH/MM3 (150-450); RED CELL DISTRIBUTION WIDTH 16.3 % (11.6-17.2); WHITE BLOOD COUNT 4.1 TH/MM3 (4.0-11.0)
[2017-05-17 07:06] LABS: PROTHROMBIN TIME - PATIENT 20.2 SEC (9.8-11.6)
[2017-05-17 07:17] LABS: BICARBONATE 27.7 MEQ/L (21.0-32.0); CALCIUM 8.5 MG/DL (8.5-10.1); CREATININE 1.07 MG/DL (0.50-1.00)
[2017-05-17 07:50] LABS: BANDS 17 % (0-6); LYMPHOCYTES 18 % (9-44); MONOCYTES 2 % (0-8); NEUTROPHIL # MANUAL DIFF 3.3 TH/MM3 (1.8-7.7); POLYS (SEG NEUTROPHILS) 63 % (16-70)
[2017-05-17] MEDS ORDERED: SODIUM CHLOR 0.9% 250 ML INJ 250 ML IV ONE (08:15)
[2017-05-17] MEDS ORDERED: ACETAMINOPHEN 325 MG TAB PO PRN (08:15)
[2017-05-17] MEDS ORDERED: diphenhydrAMINE HCL 25 MG CAP PO PRN (08:15)
[2017-05-17] MEDS: SODIUM CHLORIDE 0.9% FLUSH 10 ML FLUSH IV FLUSH SCH (08:55)
[2017-05-17] MEDS: REMOVE OLD DURAGESIC (FENTANYL) PATCH T-DERMAL SCH (08:55)
[2017-05-17] MEDS: MULTIVITAMINS/MINERALS THERAPEUTIC TAB PO SCH (08:57)
[2017-05-17] MEDS: VANCOMYCIN 500 MG VIAL (FOR ORAL USE ONLY) PO SCH ×2 (08:57→12:00)
[2017-05-17] MEDS ORDERED: TORSEMIDE 5 MG TAB PO SCH (09:00)
[2017-05-17] MEDS: SODIUM CHLOR 0.9% 1000 ML INJ 1,000 ML IV SCH (09:45)
[2017-05-17] MEDS ORDERED: MORP1TAB27 PO (10:18)
[2017-05-17] MEDS ORDERED: DILA4TAB10 PO (10:18)
[2017-05-17] MEDS ORDERED: VANC500I3 PO (10:18)
[2017-05-17] MEDS ORDERED: TORS5TAB2 PO (10:18)
--- NOTE | 2017-05-17 10:21 | HHI.DS ---
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 (1) Cancer associated pain ICD Code: G89.3 - Neoplasm related pain (acute) (chronic) Status: Acute (2) Protein calorie malnutrition ICD Code: E46 - Unspecified protein-calorie malnutrition (3) Diarrhea ICD Code: R19.7 - Diarrhea, unspecified (4) Metastatic disease ICD Code: C79.9 - Secondary malignant neoplasm of unspecified site (5) C. difficile diarrhea ICD Code: A04.72 - Enterocolitis due to Clostridium difficile, not specified as recurrent Procedures None Brief History - From Admission Mrs. 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 She is also complaining of worsening bilateral lower extremity edema. She was admitted for pain management under the hospitalist service. The patient is seen in the CDU. She is complaining of achy 8/10 pain located "really all over right now". She reports pain relief here at the hospital with PRN IV Dilaudid. She denies fever, reports she is always chilled. She denies recent cold symptoms, cough, shortness of breath, chest pain, nausea or vomiting. She is complaining of diarrhea that started a week ago. She has had several episodes of diarrhea daily. She states she was on antibiotics about two weeks ago. CBC/BMP: 05/17/17 0440 05/17/17 0440 Significant Findings Laboratory Tests Test 05/15/17 03:35 05/15/17 08:10 05/16/17 03:00 05/17/17 04:40 White Blood Count 1.3 TH/MM3 (4.0-11.0) 2.5 TH/MM3 (4.0-11.0) Red Blood Count 2.67 MIL/MM3 (4.00-5.30) 2.83 MIL/MM3 (4.00-5.30) 2.60 MIL/MM3 (4.00-5.30) Hemoglobin 7.7 GM/DL (11.6-15.3) 8.1 GM/DL (11.6-15.3) 7.5 GM/DL (11.6-15.3) Hematocrit 23.4 % (35.0-46.0) 24.7 % (35.0-46.0) 23.0 % (35.0-46.0) Platelet Count 85 TH/MM3 (150-450) 69 TH/MM3 (150-450) 52 TH/MM3 (150-450) Neutrophils # (Auto) 0.7 TH/MM3 (1.8-7.7) Lymphocytes # (Auto) 0.6 TH/MM3 (1.0-4.8) 0.6 TH/MM3 (1.0-4.8) 0.6 TH/MM3 (1.0-4.8) Band Neutrophils % 8 % (0-6) 22 % (0-6) 17 % (0-6) Neutrophils # (Manual) 0.8 TH/MM3 (1.8-7.7) Metamyelocytes 2 % (0-1) 7 % (0-1) Platelet Estimate LOW (NORMAL) LOW (NORMAL) LOW (NORMAL) Prothrombin Time 22.8 SEC (9.8-11.6) 25.1 SEC (9.8-11.6) 20.2 SEC (9.8-11.6) Blood Urea Nitrogen 47 MG/DL (7-18) 48 MG/DL (7-18) 40 MG/DL (7-18) Creatinine 1.01 MG/DL (0.50-1.00) 1.07 MG/DL (0.50-1.00) Estimat Glomerular Filtration Rate 70 ML/MIN (>89) 77 ML/MIN (>89) 65 ML/MIN (>89) Urine Turbidity HAZY (CLEAR) Urine Protein 300 mg/dL (NEG-TRACE) Urine Occult Blood LARGE (NEG) Urine WBC 6 /hpf (0-5) Urine Mucus FEW /lpf (OCC) Neutrophils (%) (Auto) 71.0 % (16.0-70.0) 82.6 % (16.0-70.0) Dohle Bodies PRESENT (NONE SEEN) Random Glucose 110 MG/DL (74-106) Calcium Level 8.3 MG/DL (8.5-10.1) Imaging Last Impressions Chest X-Ray 05/15/17 0000 Signed Impressions: Service Date/Time: Monday, May 15, 2017 08:25 - CONCLUSION: 1. No evidence of pneumonia. 2. Bilateral pulmonary nodules again noted. Bladimir Talbert MD Tube Placement X-Ray 04/27/17 0000 Signed Impressions: Service Date/Time: Thursday, April 27, 2017 17:54 - CONCLUSION: Uncomplicated suprapubic catheter placement. Boubacar Vicente MD Sacrum/Coccyx MRI 04/27/17 0000 Signed Impressions: Service Date/Time: Thursday, April 27, 2017 22:00 - CONCLUSION: Marrow signal changes within the bony elements of the sacrum and ramo potentially related to previous radiation. Soft tissue elements significantly obscured by streak associated with embolization coils and other foreign components in the pelvis. David Miranda MD Lumbar Spine MRI 04/27/17 0000 Signed Impressions: Service Date/Time: Thursday, April 27, 2017 22:00 - CONCLUSION: No acute findings in the lumbar spine. David Miranda MD Lower Extremity Ultrasound 04/25/17 0000 Signed Impressions: Service Date/Time: Tuesday, April 25, 2017 13:34 - CONCLUSION: 1. Enlarged bilateral inguinal lymph nodes. The largest on the right measures 5 cm in diameter. Nodes are suspicious. 2. No DVT. Kwabena Palmer MD PE at Discharge GENERAL: Alert, oriented 3, NAD. SKIN: Warm and dry. HEAD: Normocephalic. EYES: No scleral icterus. No injection or drainage. NECK: Supple, trachea midline. No JVD or lymphadenopathy. CARDIOVASCULAR: Regular rate and rhythm without murmurs, gallops, or rubs. RESPIRATORY: Breath sounds equal bilaterally. No accessory muscle use. GASTROINTESTINAL: Abdomen soft, non-tender, nondistended. MUSCULOSKELETAL: No cyanosis. 1+ lower extremity edema BACK: Nontender without obvious deformity. No CVA tenderness. Pt update on day of discharge Patient is currently doing well. No fever, chills. Hospital Course Ms. Dubon is a pleasant 51 year old female with a history of Stage IV adenocarcinoma of unknown primary and mets to liver and lungs who was admitted to the hospital on due to intractable back pain. She was evaluated by heme/onc and patient was started pain medications. She received carboplatin based therapy with Avastin. She became neutropenic and she had C. Diff positive colitis. Since patient is allergic flagyl, she was started on oral vancomycin for C. Diff colitis. She received cefepime for neutropenic fever. She was given Neupogen for neutropenia. Patient showed significant clinical improvements. She has a history of DVT. She was on warfarin. However, her platelet count is low as well as her hemoglobin 7.5. I discussed with Heme/Onc attending Dr. Hester who recommended discontinuing warfarin. Upon discharge, we will request labs on 05/21/2017 and weekly after that. We discharged patient on pain meds, tapering dose of PO Vancomycin. For lower ext edema, we switched Lasix to Torsemide PO. Pt Condition on Discharge: Good Discharge Disposition: Discharge to SNF Discharge Time: > 30 minutes Discharge Instructions DIET: Follow Instructions for: As Tolerated, No Restrictions Activities you can perform: Regular-No Restrictions Follow up Referrals: Oncology/Hematology - 3 Weeks with Coleman Hester MD New Medications: Hydromorphone (Dilaudid) 4 Mg Tab 4 MG PO Q4H PRN for pain>5, #20 TAB Morphine ER (Morphine ER) 100 Mg Tab 100 MG PO Q8H for Pain Management, #20 TAB Torsemide (Torsemide) 5 Mg Tab 10 MG PO DAILY for Lower ext edema, #30 TAB Vancomycin Inj (Vancomycin Inj) 500 Mg Inj 125 MG PO QID for Infection, #50 INJECTION Vancomycin 125mg PO Q6hrs X 7 days THEN Q12hrs X 7 days then Q24hrs X 7 days. Continued Medications: Lactulose Liq (Lactulose Liq) 10 Gm/15 Ml Soln 30 ML PO Q6H PRN for CONSTIPATION, #300 ML 0 Refills Discontinued Medications: Enoxaparin Inj (Lovenox Inj) 80 mg/0.8 ML Syr 90 MG SQ DAILY for Blood Clot Prevention, SYRINGE 0 Refills Fentanyl Patch 72 HR (Fentanyl Patch 72 HR) 25 Mcg/Hr Patch 25 MCG T-DERMAL Q72H for Pain Management, #2 PATCH 0 Refills Sennosides-Docusate Sodium (Gnp Senna Plus 8.6-50 mg) 8.6 Mg-50 Mg Tab 1 TAB PO BID for Constipation, #62 TAB Warfarin (Warfarin) 5 Mg Tab 5 MG PO DAILY for Blood Clot Prevention, #30 TAB 0 Refills Charissa Craig DO May 17, 2017 10:21
--- NOTE | 2017-05-17 12:08 | PD.ONC.PN ---
Subjective Subjective Remarks Afebrile overnight. Patient excited she gets to leave the hospital today. Pain controlled. No bleeding. Nephrostomy tube and suprapubic catheter draining clear urine. Objective Data Date Time Temp Pulse Resp B/P (MAP) Pulse Ox O2 Delivery O2 Flow Rate FiO2 05/17/17 10:43 97.8 108 18 111/66 100 05/17/17 10:23 98.2 111 18 111/63 96 05/17/17 07:12 89.4 119 18 115/69 (84) 99 05/17/17 04:47 97.6 112 16 95/57 (70) 99 05/17/17 00:09 98.6 117 18 110/69 (83) 100 05/16/17 21:21 98.3 106 16 109/66 (80) 100 05/16/17 15:45 98.0 112 18 112/73 (86) 99 05/17/17 05/17/17 05/17/17 07:00 15:00 23:00 Intake Total 240 ml Output Total 350 ml Balance -110 ml Result Diagram: 05/17/17 0440 05/17/17 0440 Laboratory Results Laboratory Tests Test 05/17/17 04:40 White Blood Count 4.1 TH/MM3 Red Blood Count 2.60 MIL/MM3 Hemoglobin 7.5 GM/DL Hematocrit 23.0 % Mean Corpuscular Volume 88.6 FL Mean Corpuscular Hemoglobin 28.8 PG Mean Corpuscular Hemoglobin Concent 32.5 % Red Cell Distribution Width 16.3 % Platelet Count 52 TH/MM3 Mean Platelet Volume 8.5 FL Neutrophils (%) (Auto) 82.6 % Lymphocytes (%) (Auto) 14.4 % Monocytes (%) (Auto) 2.7 % Eosinophils (%) (Auto) 0.1 % Basophils (%) (Auto) 0.2 % Neutrophils # (Auto) 3.4 TH/MM3 Lymphocytes # (Auto) 0.6 TH/MM3 Monocytes # (Auto) 0.1 TH/MM3 Eosinophils # (Auto) 0.0 TH/MM3 Basophils # (Auto) 0.0 TH/MM3 CBC Comment AUTO DIFF Differential Total Cells Counted 100 Neutrophils % (Manual) 63 % Band Neutrophils % 17 % Lymphocytes % 18 % Monocytes % 2 % Neutrophils # (Manual) 3.3 TH/MM3 Differential Comment FINAL DIFF MANUAL Platelet Estimate LOW Platelet Morphology Comment NORMAL Red Cell Morphology Comment NORMAL Prothrombin Time 20.2 SEC Prothromb Time International Ratio 2.0 RATIO Blood Urea Nitrogen 40 MG/DL Creatinine 1.07 MG/DL Random Glucose 102 MG/DL Calcium Level 8.5 MG/DL Sodium Level 140 MEQ/L Potassium Level 3.6 MEQ/L Chloride Level 104 MEQ/L Carbon Dioxide Level 27.7 MEQ/L Anion Gap 8 MEQ/L Estimat Glomerular Filtration Rate 65 ML/MIN Administered Medications Medications (Trade) Dose Ordered Sig/Erendira Route PRN Reason Start Time Stop Time Status Last Admin Dose Admin Sodium Chloride (NS Flush) 2 ml UNSCH PRN IV FLUSH FLUSH AFTER USING IV ACCESS 04/25/17 18:15 05/15/17 03:46 Sodium Chloride (NS Flush) 2 ml BID IV FLUSH 04/25/17 21:00 05/16/17 09:27 Senna/Docusate Sodium (Julieta-Colace) 1 tab BID PO 04/26/17 09:00 Future Hold 05/06/17 09:02 Miscellaneous Information 1 Q3D T-DERMAL 04/29/17 09:00 04/29/17 08:54 Vancomycin HCl (VANCOMYCIN for oral use only) 125 mg QID PO 04/26/17 09:00 05/17/17 12:00 Multivitamins/ Minerals Therapeutic (Theragran M Tab) 1 tab DAILY PO 05/02/17 09:00 05/17/17 08:57 Filgrastim 300 mcg/Dextrose 25 ml @ 100 mls/hr DAILY@14 IV 05/07/17 14:00 Future hold 05/16/17 14:50 Morphine Sulfate (Oramorph Sr) 100 mg Q8H PO 05/08/17 18:00 05/17/17 10:46 Heparin Sodium (Porcine) (Heparin Central Flush) 250 units UNSCH PRN IV FLUSH SEE PROTOCOL TABLE 05/10/17 21:00 05/15/17 03:50 Heparin Sodium (Porcine) (Heparin Central Flush) 500 units UNSCH IV FLUSH 05/10/17 21:00 05/12/17 06:19 Sodium Chloride (NS Flush) 5 ml UNSCH PRN IV FLUSH AFTER EACH USE 05/10/17 21:00 05/15/17 03:46 Alteplase, Recombinant (Cathflo Activase Inj) 2 mg UNSCH PRN IV FOR PORT OCCLUSION 05/11/17 01:45 05/11/17 02:27 Sodium Chloride 1,000 ml @ 100 mls/hr Q10H IV 05/15/17 07:45 05/16/17 21:00 Cefepime HCl 2000 mg/Sodium Chloride 100 ml @ 200 mls/hr Q8H IV 05/15/17 11:00 05/17/17 04:41 Hydromorphone HCl (Dilaudid) 4 mg Q4H PRN PO pain>5 05/16/17 12:30 05/17/17 03:37 Torsemide (Demadex) 10 mg DAILY PO 05/17/17 09:00 05/17/17 10:46 Sodium Chloride 250 ml @ 15 mls/hr ONCE ONCE IV 05/17/17 08:15 05/18/17 00:54 05/17/17 10:30 Acetaminophen (Tylenol) 650 mg Q4H PRN PO SEE LABEL COMMENTS 05/17/17 08:15 05/17/17 09:30 Diphenhydramine HCl (Benadryl) 25 mg Q4H PRN PO SEE LABEL COMMENTS 05/17/17 08:15 05/17/17 09:30 Objective Remarks GENERAL: chronically ill female, sitting up in bed in [facility]. SKIN: Warm and dry. HEAD: Normocephalic. EYES: No injection or drainage. NECK: Supple, trachea midline. CARDIOVASCULAR: tachy rate, regular rhythm. RESPIRATORY: Breath sounds equal bilaterally. No accessory muscle use. GASTROINTESTINAL: Abdomen soft, non-tender, nondistended. EXTREMITIES: No cyanosis. both legs continue to have a moderate amount of edema. NEUROLOGICAL: awake, alert, normal speech. no obvious focal deficit. : suprapubic cath and L nephro tube draining clear urine. Assessment/Plan Problem List: (1) Pancytopenia ICD Codes: D61.818 - Other pancytopenia Plan: --d/t chemotherapy --monitor for bleeding. --Neupogen resumed 05/13 (2) Metastatic disease ICD Codes: C79.9 - Secondary malignant neoplasm of unspecified site Plan: Mrs. Dubon reports a history of cancer of the uterus/cervix diagnosed in 2005, she was living in [place] at that time and underwent biopsy and treatment with chemotherapy and radiation at [facility]. Records will be requested from there. She remained in remission until 2014, she developed lower abdominal pain and was found to have a mass in the uterus, she underwent hysterectomy followed by chemotherapy at [facility] in [place], [place]. Since then she has been found to have what appears to be recurrent disease with multifocal liver metastases as well as multifocal pulmonary metastases. She has chronic ureteric obstruction likely due to her previous gynecologic malignancies and radiation and surgery rendered for treatment of this diagnosis. Now on treatment for metastatic adenocarcinoma; based on her clinical history, previous history of relapsing recurrent gynecologic malignancy I suspect she now has metastatic adenocarcinoma of the uterine origin or at least gynecologic origin. She is on carboplatin based therapy with Avastin which is appropriate treatment. --s/p day 8 gemcitabine 05/10 05/11: I called and requested slides from patient's pathology obtained during hysterectomy in [facility] in [place], [place] in 2014. Also requested records through the same hospital. 05/16: I called pathology and they are still waiting on slides, they should arrive today. (3) Cancer associated pain ICD Codes: G89.3 - Neoplasm related pain (acute) (chronic) Status: Acute Plan: --PET scan shows diffuse disease in lungs, abdomen and skeleton. --currently on ORAMORPH 60mg PO q 8+ Dilaudid 4mg PO q 4 hours (4) C. difficile diarrhea ICD Codes: A04.72 - Enterocolitis due to Clostridium difficile, not specified as recurrent Plan: --on PO Vanco --repeat stool +Cdiff on 05/06 (5) Sacral decubitus ulcer ICD Codes: L89.159 - Pressure ulcer of sacral region, unspecified stage Plan: --wound care following. Assessment 51y/o female with stage IV adenocarcinoma, with liver and lung metastasis with unknown primary admitted with intractable pain mostly in lower spine. --was residing in [facility] and according to the patient she received radiation and chemotherapy. Subsequently she moved to [place] and [place]. --recently had DVT in her left lower extremity. was in [place] at that time. has been on anticoagulation. PET scan-->diffuse disease involving her lung, abdomen and bones. history of cervical cancer in 2006 treated with chemotherapy and radiation treatments. Bilateral lower extremity DVT Severe peripheral neuropathy. Plan 1.give last dose of Neupogen today 2. follow up with Dr. Hester in 2 weeks. 3. check CBC 2x/week 4. ok to d/c coumadin with platelet count <60K and most recent U/S showing no DVT. Attending Statement The exam, history, and the medical decision-making described in the above note were completed with the assistance of the mid-level provider. I reviewed and agree with the findings presented. I attest that I had a [id number] encounter with the patient on the same day, and personally performed and documented my assessment and findings in the medical record. [facility] facility. We will transfuse 1 unit of packed red blood cells. I spoke with Dr. Delgado. We will have CBC CMP checked on Sunday in then weekly. She will follow-up in clinic with me in 2 weeks. I am holding off any further chemotherapy because of her very poor performance status. Problem Qualifiers (1) Sacral decubitus ulcer: Qualified Codes: L89.159 - Pressure ulcer of sacral region, unspecified stage Debra Newell May 17, 2017 12:08 Coleman Hester MD May 17, 2017 23:05
[2017-05-17] MEDS: FILGRASTIM INJ 300 MCG in DEXTROSE 5% IN WATER INJ 24 ML IV SCH ×2 (13:13)
== END 2017-05-17 15:03 | DRG 542 ==
LOC: NEPC 12:38 → NEDA 18:05 → NEPHCDU 19:53 → OBSVTOIN 04-27 16:50 → HCIN 04-28 01:01
PROVIDERS: ADMIT Hospitalist; ATTEND Hospitalist
PROC: 0T9B30Z Drainage of Bladder with Drainage Device, Percutaneous Approach (ICD-10-PCS; 2017-04-27)
PROC: 30233N1 Transfusion of Nonautologous Red Blood Cells into Peripheral Vein, Percutaneous Approach (ICD-10-PCS; principal; 2017-04-28)
PROC: 3E03305 Introduction of Other Antineoplastic into Peripheral Vein, Percutaneous Approach (ICD-10-PCS; 2017-05-02)
DX: C79.51 Secondary malignant neoplasm of bone (principal); D61.810 Antineoplastic chemotherapy induced pancytopenia; A04.72 Enterocolitis due to Clostridium difficile, not specified as recurrent; N17.9 Acute kidney failure, unspecified; E46 Unspecified protein-calorie malnutrition; C78.00 Secondary malignant neoplasm of unspecified lung; C78.7 Secondary malignant neoplasm of liver and intrahepatic bile duct; N18.3 Chronic kidney disease, stage 3 (moderate); C79.89 Secondary malignant neoplasm of other specified sites; N39.0 Urinary tract infection, site not specified; N13.8 Other obstructive and reflux uropathy; N13.30 Unspecified hydronephrosis; G89.3 Neoplasm related pain (acute) (chronic); L89.159 Pressure ulcer of sacral region, unspecified stage; T83.032A Leakage of nephrostomy catheter, initial encounter; R00.0 Tachycardia, unspecified; D63.8 Anemia in other chronic diseases classified elsewhere; G62.9 Polyneuropathy, unspecified; Y73.2 Prosthetic and other implants, materials and accessory gastroenterology and urology devices associated with adverse incidents; Z85.41 Personal history of malignant neoplasm of cervix uteri; Z92.3 Personal history of irradiation; Z92.21 Personal history of antineoplastic chemotherapy; Z86.718 Personal history of other venous thrombosis and embolism; Z79.01 Long term (current) use of anticoagulants; Z90.710 Acquired absence of both cervix and uterus; M54.5 Low back pain; R06.02 Shortness of breath; Z51.5 Encounter for palliative care; R60.0 Localized edema; R31.9 Hematuria, unspecified; D50.9 Iron deficiency anemia, unspecified; B96.5 Pseudomonas (aeruginosa) (mallei) (pseudomallei) as the cause of diseases classified elsewhere; T45.1X5A Adverse effect of antineoplastic and immunosuppressive drugs, initial encounter; Y92.239 Unspecified place in hospital as the place of occurrence of the external cause; E87.70 Fluid overload, unspecified; K59.00 Constipation, unspecified
CPT/HCPCS: 36430; 51102; 71010; 71045; 72158; 72197; 76937; 76942; 77002; 80048; 80053; 81001; 82378; 82607; 82668; 82728; 82746; 83540; 83550; 83615; 83735; 83880; 84443; 84484; 84702; 85007; 85025; 85027; 85044; 85610; 85660; 85730; 86077; 86300; 86301; 86304; 86850; 86870; 86900; 86901; 86920; 86921; 86922; 87040; 87077; 87086; 87186; 87493; 93970; 94150; 96374; 96376; 99152; 99153; A9579; C1769; C1894; G0378; G8987-GP; G8988-GP; J0692; J0696; J1100; J1170; J1442; J1626; J1642; J1940; J2060; J2997; J3010; J7030; J7040; J7050; J9035; J9045; J9201; P9016; P9047; Q9967

== ENCOUNTER 2017-05-20 09:56 | Emergency (ER) | payer MEDICAID, OTHER ==
[~2017-05-20 09:56] MED LIST changes: +DILA4TAB10 PO; -ENOX80P SQ; -FENT25DI T-DERMAL; +MORP1TAB27 PO; -PERI PO; +TORS5TAB2 PO; +VANC500I3 PO
[2017-05-20 10:30] VITALS: BP 118/63; PULSE 118; RESP 20; TEMP 97.7; O2SAT 100
[2017-05-20] MEDS ORDERED: SODIUM CHLORIDE 0.9% FLUSH 10 ML FLUSH IV FLUSH PRN (10:30)
--- NOTE | 2017-05-20 10:57 | PD ---
HPI Chief Complaint: Abnormal Results Time Seen by Provider: 10:23 Travel History International Travel<30 days: No Contact w/Intl Traveler<30days: No History of Present Illness HPI Patient is a 51-year-old female with a history of metastatic cervical cancer presents emergency department for evaluation of hematuria. Started this morning. States that initially she passed a clot and then he's been somewhat clear after that. She states is happened to her before in the clot had to be manually expressed from her Lazcano catheter in and the urine cleared over the next couple hours. She is not currently on blood thinners. She's not seen it urologist before. She does have a history of nephrostomy tube on the left side and a ureteral stent on the right. 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 Patient denies abdominal pain chest pain shortness of breath fevers or other complaints. She endorses a chronic lower extremity edema. PFSH Past Medical History Blood Disorders: No Cancer: Yes Cardiovascular Problems: No Chemotherapy: No Diabetes: No Diminished Hearing: No Deep Vein Thrombosis: Yes (BLE) Endocrine: No Genitourinary: Yes Hypertension: Yes (PT DENIES) Immune Disorder: No Musculoskeletal: No Neurologic: No Psychiatric: No Reproductive: No Respiratory: No Immunizations Current: Yes Radiation Therapy: No : 5 Para: 5 Tubal Ligation: Yes Past Surgical History Abdominal Surgery: Yes (HERNIA REPAIR) Hysterectomy: Yes Tonsillectomy: Yes Other Surgery: Yes (NEPHROSTOMY TUBE IN PLACE) Social History Alcohol Use: No Tobacco Use: No Substance Use: No Allergies-Medications (Allergen,Severity, Reaction): Coded Allergies: levofloxacin (Unverified Allergy, Unknown, 04/02/17) metronidazole (Unverified Allergy, Unknown, 04/02/17) penicillin G (Unverified Allergy, Unknown, 04/02/17) Reported Meds & Prescriptions Reported Meds & Active Scripts Active Torsemide 5 Mg Tab 10 Mg PO DAILY Morphine ER (Morphine Sulfate) 100 Mg Tab 100 Mg PO Q8H Dilaudid (Hydromorphone HCl) 4 Mg Tab 4 Mg PO Q4H PRN Vancomycin Inj (Vancomycin HCl) 500 Mg Inj 125 Mg PO QID Vancomycin 125mg PO Q6hrs X 7 days THEN Q12hrs X 7 days then Q24hrs X 7 days. Lactulose Liq (Lactulose) 10 Gm/15 Ml Soln 30 Ml PO Q6H PRN Review of Systems Except as stated in HPI: all other systems reviewed are Neg Physical Exam Narrative GENERAL: Well-developed well-nourished no obvious distress SKIN: Focused skin assessment warm/dry. HEAD: Atraumatic. Normocephalic. EYES: Pupils equal and round. No scleral icterus. No injection or drainage. ENT: No nasal bleeding or discharge. Mucous membranes pink and moist. NECK: Trachea midline. No JVD. CARDIOVASCULAR: Regular rate and rhythm. No murmur appreciated. RESPIRATORY: No accessory muscle use. Clear to auscultation. Breath sounds equal bilaterally. GASTROINTESTINAL: Abdomen soft, non-tender, nondistended. Hepatic and splenic margins not palpable. Nephrostomy site clean dry and intact, clear drainage. Lazcano catheter in place showing pink tinged urine. MUSCULOSKELETAL: No obvious deformities. No clubbing. No cyanosis. Fairly pronounced edema bilateral lower extremities from the mid femur down. She does wear knee-high compression stockings. 2+ bilateral equal pulses in all 4 extremity's. NEUROLOGICAL: Awake and alert. No obvious cranial nerve deficits. Motor grossly within normal limits. Normal speech. PSYCHIATRIC: Appropriate mood and affect; insight and judgment normal. Data Data Last Documented VS Vital Signs Date Time Temp Pulse Resp B/P (MAP) Pulse Ox O2 Delivery O2 Flow Rate FiO2 05/20/17 12:25 100 Room Air 05/20/17 10:45 18 05/20/17 10:30 97.7 118 118/63 (81) Orders Orders Complete Blood Count With Diff (05/20/17 10:26) Comprehensive Metabolic Panel (05/20/17 10:26) Prothrombin Time / Inr (Pt) (05/20/17 10:26) Act Partial Throm Time (Ptt) (05/20/17 10:26) Urinalysis - C+S If Indicated (05/20/17 10:26) Iv Access Insert/Monitor (05/20/17 10:26) Ecg Monitoring (05/20/17 10:26) Oximetry (05/20/17 10:26) Sodium Chloride 0.9% Flush (Ns Flush) (05/20/17 10:30) Type And Screen (05/20/17 10:26) Urinalysis - C+S If Indicated (05/20/17 10:42) Urine Culture (05/20/17 11:25) Red Blood Cells (Rbc) (05/20/17 11:15) Urine Culture (05/20/17 11:20) Ed Discharge Order (05/20/17 13:02) Heparin Central Flush (Heparin Central F (05/20/17 14:00) Labs Laboratory Tests Test 05/20/17 11:15 05/20/17 11:20 05/20/17 11:25 White Blood Count 2.2 TH/MM3 Red Blood Count 3.43 MIL/MM3 Hemoglobin 9.9 GM/DL Hematocrit 30.5 % Mean Corpuscular Volume 89.0 FL Mean Corpuscular Hemoglobin 28.9 PG Mean Corpuscular Hemoglobin Concent 32.5 % Red Cell Distribution Width 16.0 % Platelet Count 69 TH/MM3 Mean Platelet Volume 8.9 FL Neutrophils (%) (Auto) 50.0 % Lymphocytes (%) (Auto) 27.5 % Monocytes (%) (Auto) 21.8 % Eosinophils (%) (Auto) 0.4 % Basophils (%) (Auto) 0.3 % Neutrophils # (Auto) 1.1 TH/MM3 Lymphocytes # (Auto) 0.6 TH/MM3 Monocytes # (Auto) 0.5 TH/MM3 Eosinophils # (Auto) 0.0 TH/MM3 Basophils # (Auto) 0.0 TH/MM3 CBC Comment AUTO DIFF Differential Total Cells Counted 100 Neutrophils % (Manual) 42 % Band Neutrophils % 16 % Lymphocytes % 30 % Monocytes % 12 % Neutrophils # (Manual) 1.3 TH/MM3 Differential Comment FINAL DIFF MANUAL Atypical Lymphocytes % Toxic Granulation 1+ Platelet Estimate LOW Platelet Morphology Comment ENLARGED Prothrombin Time 14.1 SEC Prothromb Time International Ratio 1.4 RATIO Activated Partial Thromboplast Time 31.9 SEC Blood Urea Nitrogen 32 MG/DL Creatinine 1.17 MG/DL Random Glucose 126 MG/DL Total Protein 6.7 GM/DL Albumin 1.5 GM/DL Calcium Level 9.1 MG/DL Alkaline Phosphatase 136 U/L Aspartate Amino Transf (AST/SGOT) 19 U/L Alanine Aminotransferase (ALT/SGPT) 18 U/L Total Bilirubin 0.3 MG/DL Sodium Level 136 MEQ/L Potassium Level 3.2 MEQ/L Chloride Level 99 MEQ/L Carbon Dioxide Level 29.8 MEQ/L Anion Gap 7 MEQ/L Estimat Glomerular Filtration Rate 59 ML/MIN Urine Color LIGHT-YELLOW LIGHT-YELLOW Urine Turbidity CLEAR CLOUDY Urine pH 6.5 5.0 Urine Specific [place] 1.006 1.006 Urine Protein 30 mg/dL NEG mg/dL Urine Glucose (UA) NEG mg/dL NEG mg/dL Urine Ketones NEG mg/dL NEG mg/dL Urine Occult Blood MOD SMALL Urine Nitrite NEG NEG Urine Bilirubin NEG NEG Urine Urobilinogen LESS THAN 2.0 MG/DL LESS THAN 2.0 MG/DL Urine Leukocyte Esterase NEG SMALL Urine RBC /hpf 35 /hpf Urine WBC 13 /hpf 11 /hpf Urine Transitional Epithelial Cells 1 /hpf Urine Mucus FEW /lpf FEW /lpf Microscopic Urinalysis Comment CATH-CULTURE IND CULTURE INDICATED Urine Squamous Epithelial Cells 2 /hpf Urine Amorphous Sediment MOD Urine Bacteria MOD /hpf Urine Granular Casts 3 /lpf MDM Medical Decision Making Medical Screen Exam Complete: Yes Emergency Medical Condition: Yes Differential Diagnosis Hematuria, anemia, thrombocytopenia, metastatic cancer. Narrative Course Patient seen and examined by me in the ambulance wang, she has left-sided nephrostomy right-sided ureteral stent, Lazcano catheter in place. She's noticed some blood tinged urine today and passed a small amount of clots through her Lazcano catheter. Has a history of metastatic cervical cancer on chemotherapy. Platelet count and hemoglobin have been low in the past. She has no complaints of abdominal pain fevers chest pain shortness of breath, she does endorse some chronic leg swelling and wears knee-high ANISH hose. Basic labs have been ordered as well as urinalysis of both the Lazcano drainage and the urostomy drainage. Initial workup does show some mild anemia and some mild onset opinion but is much improved over the patient's baseline. Her Lazcano catheter hematuria is gradually clearing. Discussed with the patient she is follow-up with a urologist as well as her oncologist tomorrow. She is stable for discharge. Heparin flush ordered for her port. Diagnosis Primary Impression: Hematuria Qualified Codes: R31.9 - Hematuria, unspecified Referrals: Santhosh Watkins MD Additional Instructions: Call Dr. Peña's office tomorrow for further instructions. Return to the emergency department at any time should you have increasing pain fever or increasing blood in the urine. Also recommend he follow up with your urologist or Dr. Watkins. Disposition: 01 DISCHARGE HOME Condition: Stable Zackery Persaud MD 14, 2018 10:57
[2017-05-20 11:49] LABS: AUTOMATED NEUTROPHIL # 1.1 TH/MM3 (1.8-7.7); BASOPHIL % 0.3 % (0.0-2.0); EOSINOPHIL % 0.4 % (0.0-4.0); HEMATOCRIT 30.5 % (35.0-46.0); HEMOGLOBIN 9.9 GM/DL (11.6-15.3); LYMPH % 27.5 % (9.0-44.0); LYMPHOCYTE # 0.6 TH/MM3 (1.0-4.8); MEAN CORPUSCULAR HEMOGLOBIN 28.9 PG (27.0-34.0); MEAN CORPUSCULAR HGB CONC 32.5 % (32.0-36.0); MEAN PLATELET VOLUME 8.9 FL (7.0-11.0); MONO % 21.8 % (0.0-8.0); MONOCYTE # 0.5 TH/MM3 (0-0.9); PLATELET COUNT 69 TH/MM3 (150-450); RED BLOOD COUNT 3.43 MIL/MM3 (4.00-5.30); WHITE BLOOD COUNT 2.2 TH/MM3 (4.0-11.0)
[2017-05-20 11:54] LABS: INTERNATIONAL NORMALIZED RATIO 1.4 RATIO; PROTHROMBIN TIME - PATIENT 14.1 SEC (9.8-11.6)
[2017-05-20 12:06] LABS: ALBUMIN 1.5 GM/DL (3.4-5.0); AST (GOT) 19 U/L (15-37); BICARBONATE 29.8 MEQ/L (21.0-32.0); BLOOD UREA NITROGEN 32 MG/DL (7-18); CALCIUM 9.1 MG/DL (8.5-10.1); CHLORIDE 99 MEQ/L (98-107); CREATININE 1.17 MG/DL (0.50-1.00); GLOMERULAR FILTRATION RATE 59 ML/MIN (>89); GLUCOSE,RANDOM 126 MG/DL (74-106); SODIUM (NA) 136 MEQ/L (136-145)
[2017-05-20 12:07] LABS: ALT (GPT) 18 U/L (10-53)
[2017-05-20 12:10] LABS: ALKALINE PHOSPHATASE 136 U/L (45-117); TOTAL BILIRUBIN ADULT 0.3 MG/DL (0.2-1.0); TOTAL PROTEIN 6.7 GM/DL (6.4-8.2)
[2017-05-20 12:18] LABS: AMORPHOUS SEDIMENT, URINE MOD; BACTERIA, URINE MOD /hpf; BILIRUBIN, URINE NEG (NEG); BLOOD, URINE SMALL (NEG); GLUCOSE,URINE NEG (NEG); KETONE, URINE NEG (NEG); MUCUS URINE FEW /lpf (OCC); NITRITE,URINE NEG (NEG); SQUAMOUS EPITHELIAL CELL URINE 2 /hpf (0-5); URINE COLOR LIGHT-YELLOW (YELLW/STRAW); URINE LEUKOCYTE ESTERASE SMALL (NEG)
[2017-05-20 12:25] VITALS: O2SAT 100
[2017-05-20 12:27] LABS: BANDS 16 % (0-6); LYMPHOCYTES 30 % (9-44); MONOCYTES 12 % (0-8); NEUTROPHIL # MANUAL DIFF 1.3 TH/MM3 (1.8-7.7); POLYS (SEG NEUTROPHILS) 42 % (16-70)
[2017-05-20 12:29] LABS: TOXIC GRANULATION 1+ (NORMAL)
[2017-05-20 12:34] LABS: BILIRUBIN, URINE NEG (NEG); BLOOD, URINE MOD (NEG); GLUCOSE,URINE NEG (NEG); KETONE, URINE NEG (NEG); MUCUS URINE FEW /lpf (OCC); NITRITE,URINE NEG (NEG); PH, URINE 6.5 (5.0-8.5); TRANSITIONAL EPI CELLS, URINE 1 /hpf; URINE COLOR LIGHT-YELLOW (YELLW/STRAW); URINE LEUKOCYTE ESTERASE NEG (NEG)
== END 2017-05-20 16:00 | disposition home or self-care (01) ==
LOC: NEDAMB 09:56 → NEPI 16:00
DX: R31.9 Hematuria, unspecified (principal); D64.9 Anemia, unspecified; C53.9 Malignant neoplasm of cervix uteri, unspecified; R60.0 Localized edema; I10 Essential (primary) hypertension; Z86.718 Personal history of other venous thrombosis and embolism; Z79.899 Other long term (current) drug therapy; Z88.0 Allergy status to penicillin; Z88.8 Allergy status to other drugs, medicaments and biological substances
CPT/HCPCS: 80053; 81001; 85007; 85027; 85610; 85730; 86850; 86900; 86901; 86920; 86921; 86922; 87086; 99283

== ENCOUNTER 2017-08-20 08:31 | Emergency (ER) | payer MEDICAID ==
[~2017-08-20] VITALS: Ht 170.2 cm; Wt 61.2 kg
[2017-08-20 08:34] VITALS: BP 127/79; PULSE 111; RESP 22; TEMP 98.2; O2SAT 99
[2017-08-20] MEDS ORDERED: ALPR2TAB3 PO (08:44)
[2017-08-20] MEDS ORDERED: HYDR-2374 PO (08:44)
[2017-08-20 09:04] VITALS: BP 149/80; PULSE 100; RESP 15; O2SAT 97
[2017-08-20] MEDS ORDERED: SODIUM CHLORIDE 0.9% FLUSH 10 ML FLUSH IVF PRN (09:15)
--- NOTE | 2017-08-20 09:16 | PD ---
HPI Chief Complaint: Chest Pain Time Seen by Provider: 08:50 Travel History International Travel<30 days: No Contact w/Intl Traveler<30days: No Traveled to known affect area: No History of Present Illness HPI The patient was seen and examined in the presence of the nurse. This patient complains of chest pain and right flank pain. Duration 24 hours. Started yesterday. Severity is moderate. She has a constant sternal tightness. Not exertional. Not pleuritic. Also complains of right flank pain. Patient has complicated medical history with metastatic adenocarcinoma. She is getting chemotherapy. She has numerous bilateral pulmonary nodules. She has metastatic spread throughout the abdomen. She is on Coumadin for history of DVT. No alleviating factors. No exacerbating factors. No history of cardiac disease. PFSH Past Medical History Blood Disorders: No Cancer: Yes Cardiovascular Problems: No Chemotherapy: No Diabetes: No Diminished Hearing: No Deep Vein Thrombosis: Yes (BLE) Endocrine: No Gastrointestinal Disorders: No Genitourinary: Yes Hypertension: Yes (PT DENIES) Immune Disorder: No Implanted Vascular Access Dvce: No Musculoskeletal: No Neurologic: No Psychiatric: No Reproductive: No Respiratory: No Immunizations Current: Yes Radiation Therapy: No : 5 Para: 5 Tubal Ligation: Yes Past Surgical History Abdominal Surgery: Yes (HERNIA REPAIR) Hysterectomy: Yes Tonsillectomy: Yes Other Surgery: Yes (NEPHROSTOMY TUBE IN PLACE) Social History Alcohol Use: No Tobacco Use: No Substance Use: No Allergies-Medications (Allergen,Severity, Reaction): Coded Allergies: levofloxacin (Verified Allergy, Unknown, 08/20/17) metronidazole (Verified Allergy, Unknown, 08/20/17) morphine (Verified Allergy, Unknown, Hives, 08/20/17) penicillin G (Verified Allergy, Unknown, 08/20/17) Reported Meds & Prescriptions Reported Meds & Active Scripts Active Reported Alprazolam 2 Mg Tab 2 Mg PO Q8H PRN Hydrocodone-Acetaminophen 10-300 Tab 1 Tab PO Q4H PRN Review of Systems General / Constitutional: No: Fever Eyes: No: Visual changes HENT: No: Headaches Cardiovascular: Positive: Chest Pain or Discomfort Respiratory: No: Shortness of Breath Gastrointestinal: No: Abdominal Pain Genitourinary: Positive: Flank Pain, No: Dysuria Musculoskeletal: Positive: Weakness, No: Pain Skin: No Rash Neurologic: Positive: Weakness Psychiatric: No: Depression Endocrine: No: Polydipsia Hematologic/Lymphatic: No: Easy Bruising Physical Exam Narrative GENERAL: Thin pleasant well-developed patient in no apparent distress. SKIN: Focused skin assessment reveals no rash and nodules. Skin is Warm and dry. HEAD: Atraumatic. Normocephalic. EYES: Pupils equal and round. No scleral icterus. No injection or drainage. ENT: No nasal bleeding or discharge. Mucous membranes pink and moist. NECK: Trachea midline. No JVD. CARDIOVASCULAR: Regular rate and rhythm. No murmur appreciated. RESPIRATORY: No accessory muscle use. Clear to auscultation. Breath sounds equal bilaterally. GASTROINTESTINAL: Abdomen soft, non-tender, nondistended. Hepatic and splenic margins not palpable. Has a suprapubic catheter and a left nephrostomy MUSCULOSKELETAL: No obvious deformities. No clubbing. No cyanosis. Symmetric leg edema from the knees down. No midline tenderness to the back. There is some right-sided CVA tenderness NEUROLOGICAL: Awake and alert. No obvious cranial nerve deficits. Motor grossly within normal limits. Normal speech. PSYCHIATRIC: Appropriate mood and affect; insight and judgment normal. Data Data Last Documented VS Vital Signs Date Time Temp Pulse Resp B/P (MAP) Pulse Ox O2 Delivery O2 Flow Rate FiO2 08/20/17 12:38 112 16 97 08/20/17 10:10 Room Air 08/20/17 08:34 98.2 Orders Orders Electrocardiogram (08/20/17 09:07) Basic Metabolic Panel (Bmp) (08/20/17 09:07) Ckmb (Isoenzyme) Profile (08/20/17 09:07) Complete Blood Count With Diff (08/20/17 09:07) Prothrombin Time / Inr (Pt) (08/20/17 09:07) Troponin I (08/20/17 09:07) Lipase (08/20/17 09:07) Chest, Single Ap (08/20/17 09:07) Ecg Monitoring (08/20/17 09:07) Iv Access Insert/Monitor (08/20/17 09:07) Oximetry (08/20/17 09:07) Sodium Chloride 0.9% Flush (Ns Flush) (08/20/17 09:15) Ct Abd/Pel W/O Iv Contrast (08/20/17 ) Labs Laboratory Tests Test 08/20/17 09:00 08/20/17 10:25 Blood Urea Nitrogen 22 MG/DL Creatinine 1.12 MG/DL Random Glucose 98 MG/DL Calcium Level 10.3 MG/DL Sodium Level 135 MEQ/L Potassium Level 3.9 MEQ/L Chloride Level 104 MEQ/L Carbon Dioxide Level 21.6 MEQ/L Anion Gap 9 MEQ/L Estimat Glomerular Filtration Rate 62 ML/MIN Total Creatine Kinase 51 U/L Troponin I LESS THAN 0.02 NG/ML Lipase 56 U/L White Blood Count 10.9 TH/MM3 Red Blood Count 3.34 MIL/MM3 Hemoglobin 10.3 GM/DL Hematocrit 31.3 % Mean Corpuscular Volume 93.7 FL Mean Corpuscular Hemoglobin 30.8 PG Mean Corpuscular Hemoglobin Concent 32.9 % Red Cell Distribution Width 17.9 % Platelet Count 317 TH/MM3 Mean Platelet Volume 7.9 FL Neutrophils (%) (Auto) 83.1 % Lymphocytes (%) (Auto) 9.8 % Monocytes (%) (Auto) 6.3 % Eosinophils (%) (Auto) 0.3 % Basophils (%) (Auto) 0.5 % Neutrophils # (Auto) 9.1 TH/MM3 Lymphocytes # (Auto) 1.1 TH/MM3 Monocytes # (Auto) 0.7 TH/MM3 Eosinophils # (Auto) 0.0 TH/MM3 Basophils # (Auto) 0.1 TH/MM3 CBC Comment AUTO DIFF Differential Comment AUTO DIFF CONFIRMED Platelet Estimate NORMAL Platelet Morphology Comment NORMAL MDM Medical Decision Making Medical Screen Exam Complete: Yes Emergency Medical Condition: Yes Medical Record Reviewed: Yes Differential Diagnosis Bony metastatic spread, pleural effusion, ACS Narrative Course I have reviewed the patient's electronic medical record. Reviewed her oncologist note from 2 months ago. I have ordered extensive workup given her complex history and multiple complaints. Chest x-ray shows multiple bilateral masses as expected CT abdomen and pelvis does not show bony metastases. Tubes are in position Labs noted. However, before I could get back to the patient's room to review the workup and reassess she signed out against advice and left. She had to go. I think her had to get to work or something. Diagnosis Primary Impression: Chest pain Qualified Codes: R07.9 - Chest pain, unspecified Additional Impression: Right flank pain Disposition: 07 AGAINST MEDICAL ADVICE Jaswant Jeff MD Aug 20, 2017 09:16
[2017-08-20 09:58] LABS: BICARBONATE 21.6 MEQ/L (21.0-32.0); BLOOD UREA NITROGEN 22 MG/DL (7-18); CALCIUM 10.3 MG/DL (8.5-10.1); CHLORIDE 104 MEQ/L (98-107); CREATININE 1.12 MG/DL (0.50-1.00); GLOMERULAR FILTRATION RATE 62 ML/MIN (>89); GLUCOSE,RANDOM 98 MG/DL (74-106); SODIUM (NA) 135 MEQ/L (136-145)
[2017-08-20 10:02] LABS: TROPONIN I LESS THAN 0.02 NG/ML (0.02-0.05)
--- NOTE | 2017-08-20 10:04 | RADRPT ---
EXAM DATE/TIME: 08/20/2017 09:13 [facility] COMPARISON: CHEST SINGLE AP, May 15, 2017, 8:25. INDICATIONS : Chest pain. MEDICAL HISTORY : Breast cancer with lung metastases SURGICAL HISTORY : Hysterectomy. Left nephrostomy tube, right ureteral stent ENCOUNTER: Subsequent ACUITY: 1 day PAIN SCORE: 5/10 LOCATION: Bilateral chest FINDINGS: Stable right subclavian [id number]. Redemonstration of bilateral lung masses with interval improve ment in size of a right lower lobe lung mass in comparison to prior exam. Left upper and lower lung z one lung masses are slightly more prominent on current exam. Cardiomediastinal contours are within no rmal limits. The remainder of the exam is unchanged. CONCLUSION: 1. Redemonstration of bilateral lung masses, improved in the right lower lobe and slightly more promi nent in the left lung. 2. No acute abnormality. Boubacar Vicente MD on August 20, 2017 at 9:59 Board Certified Radiologist. This report was verified electronically.
[2017-08-20 10:10] VITALS: BP 145/80; PULSE 89; RESP 15; O2SAT 97
[2017-08-20 10:11] VITALS: PULSE 89; RESP 15
--- NOTE | 2017-08-20 10:53 | RADRPT ---
EXAM DATE/TIME: 08/20/2017 10:28 [facility] COMPARISON: CT ABDOMEN & PELVIS W/O CONTRAST, June 21, 2017, 12:25. INDICATIONS : Abdominal pain, back pain ORAL CONTRAST: No oral contrast ingested. RADIATION DOSE: 6.64 CTDIvol (mGy) MEDICAL HISTORY : Hypertension. Metastatic, liver. Renal insufficiency. SURGICAL HISTORY : Hysterectomy. ENCOUNTER: Initial ACUITY: 2 days PAIN SCALE: 9/10 LOCATION: Right back TECHNIQUE: Volumetric scanning of the abdomen and pelvis was performed. Using automated exposure control and ad justment of the mA and/or kV according to patient size, radiation dose was kept as low as reasonably achievable to obtain optimal diagnostic quality images. DICOM format image data is available electro nically for review and comparison. FINDINGS: There are lung nodules present in this patient with known metastatic cancer. Multiple liver metastases are present described in 06/21/17 and unchanged. Spleen is unremarkable. N ephrostomy tube is present in the right kidney. Double-J stent is seen on the left There is no ascites, adenopathy or free air. In the pelvis tissue planes are obscured. The suprapubic tube is in place. I don't see an abscess o r in the undrained fluid collections. I don't see bony metastatic disease. CONCLUSION: Very limited exam because of lack of intravenous and oral contrast. Patient has nephrostomy tube, double-J stent suprapubic tube in apparent good position. No bony metastatic disease.. I don't see an etiology for the abdominal pain Blanco Brock MD FACR on August 20, 2017 at 10:48 Board Certified Radiologist. This report was verified electronically.
[2017-08-20 10:55] LABS: AUTOMATED NEUTROPHIL # 9.1 TH/MM3 (1.8-7.7); BASOPHIL # 0.1 TH/MM3 (0-0.2); BASOPHIL % 0.5 % (0.0-2.0); EOSINOPHIL % 0.3 % (0.0-4.0); HEMATOCRIT 31.3 % (35.0-46.0); HEMOGLOBIN 10.3 GM/DL (11.6-15.3); LYMPH % 9.8 % (9.0-44.0); LYMPHOCYTE # 1.1 TH/MM3 (1.0-4.8); MEAN CELL VOLUME 93.7 FL (80.0-100.0); MEAN CORPUSCULAR HEMOGLOBIN 30.8 PG (27.0-34.0); MEAN CORPUSCULAR HGB CONC 32.9 % (32.0-36.0); MEAN PLATELET VOLUME 7.9 FL (7.0-11.0); MONO % 6.3 % (0.0-8.0); MONOCYTE # 0.7 TH/MM3 (0-0.9); NEUT % 83.1 % (16.0-70.0); PLATELET COUNT 317 TH/MM3 (150-450); RED BLOOD COUNT 3.34 MIL/MM3 (4.00-5.30); RED CELL DISTRIBUTION WIDTH 17.9 % (11.6-17.2); WHITE BLOOD COUNT 10.9 TH/MM3 (4.0-11.0)
--- NOTE | 2017-08-20 17:15 | EKG ---
Date Performed: 08/20/2017 Time Performed: 08:56:09 PTAGE: 52 years EKG: SINUS TACHYCARDIA LEFT ATRIAL ENLARGEMENT Since the previous tracing, no significant change noted ABNORMAL ECG PREVIOUS TRACING : 03/17/2017 18.32 DOCTOR: Syd Brasher Interpretating Date/Time 08/20/2017 17:12:38
== END 2017-08-20 13:00 | disposition left against medical advice (07) ==
LOC: NEPC 08:31
DX: R07.9 Chest pain, unspecified (principal); R10.9 Unspecified abdominal pain; R94.31 Abnormal electrocardiogram [ECG] [EKG]; C79.51 Secondary malignant neoplasm of bone; Z79.01 Long term (current) use of anticoagulants; Z88.5 Allergy status to narcotic agent; Z88.0 Allergy status to penicillin; Z86.718 Personal history of other venous thrombosis and embolism
CPT/HCPCS: 71045; 74176; 80048; 82550; 83690; 84484; 85025; 93005; 99285